=== PATIENT | female | born 1940 | race Caucasian/White ===

== ENCOUNTER 2016-11-24 16:16 | Inpatient (IN) | payer MEDICARE, BC ==
--- NOTE | 2016-11-24 17:50 | ED ---
Recheck HPI - General Chief Complaint: Recheck/Abnormal Lab/Rx Stated Complaint: low hemoglobin Time Seen by Provider: 11/24/16 16:25 Source: patient, EMS Mode of arrival: EMS Limitations: no limitations - History of Present Illness Initial Comments: This patient is a 76-year-old lady who presents after she was called and informed that the labs from this morning were abnormal. The patient states she had some follow-up care with the doctor after she had an abdominal surgery. The CBC that was drawn showed that her hemoglobin was 5.8. The patient does have some symptoms of anemia, namely she is very fatigued. Patient denies chest pain or dyspnea, however she is not very active yet in the postsurgical phase. 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 She did have resection there and now is in for rehab placement. MD Complaint: abnormal lab -: hour(s) Returns Today for: Called Because of Abnormal Lab/Test Symptoms Since Prior Visit: no new symptoms - Related Data Home Medications Medication Instructions Recorded Confirmed Atorvastatin [Lipitor] 10 mg PO HS 07/31/16 11/24/16 Doxazosin [Cardura] 4 mg PO DAILY 07/31/16 11/24/16 Lisinopril 40 mg PO HS 07/31/16 11/24/16 Metoprolol Succinate [Toprol XL] 100 mg PO DAILY 07/31/16 11/24/16 Omeprazole 20 mg PO DAILY 07/31/16 11/24/16 Valsartan [Diovan] 320 mg PO DAILY@1200 07/31/16 11/24/16 Amiodarone [Cordarone] 200 mg PO DAILY 11/24/16 11/24/16 Apixaban [Eliquis] 5 mg PO BID 11/24/16 11/24/16 Aspirin 325 mg PO BID 11/24/16 11/24/16 Diltiazem HCl 30 mg PO Q6H 11/24/16 11/24/16 Dronabinol 5 mg PO BID@0600,1100 11/24/16 11/24/16 Ferrous Sulfate [Feosol] 325 mg PO DAILY 11/24/16 11/24/16 Lactose-Reduced Food [Ensure Plus] 1 can PO AC-TID 11/24/16 11/24/16 Melatonin 10 mg PO HS 11/24/16 11/24/16 Mylanta Double-Stregnth Suspension 10 ml PO Q4H PRN 11/24/16 11/24/16 928-048-21xm/5ml Ondansetron [Zofran] 4 mg PO Q6H PRN 11/24/16 11/24/16 Sennosides-Docusate Sodium 1 tab PO BID 11/24/16 11/24/16 [Senokot-S] Sulfamethox-Tmp 800-160Mg [Bactrim 1 tab PO Q12HR 11/24/16 11/24/16 DS 800-160 mg] Allergies Allergy/AdvReac Type Severity Reaction Status Date / Time No Known Allergies Allergy Verified 11/24/16 16:38 Review of Systems ROS Statement: Those systems with pertinent positive or pertinent negative responses have been documented in the HPI. ROS Other: All systems not noted in ROS Statement are negative. Constitutional: Reports: weakness. Denies: fever, chills Respiratory: Denies: cough, dyspnea, hemoptysis Cardiovascular: Denies: chest pain, palpitations, syncope Endocrine: Reports: fatigue Gastrointestinal: Denies: abdominal pain, vomiting, diarrhea, melena, hematochezia Genitourinary: Denies: dysuria Musculoskeletal: Denies: back pain Skin: Denies: rash Neurological: Reports: weakness (Generalized). Denies: headache, numbness, paresthesias Hematological/Lymphatic: Denies: easy bleeding Past Medical History Past Medical History: Cancer, GERD/Reflux, Hyperlipidemia, Hypertension Additional Past Medical History / Comment(s): Breast CA History of Any Multi-Drug Resistant Organisms: None Reported Past Surgical History: Breast Surgery, Orthopedic Surgery Additional Past Surgical History / Comment(s): LEFT SHOULDER. LEFT FOOT. RIGHT BREAST BIOPSY Past Anesthesia/Blood Transfusion Reactions: Motion Sickness, Postoperative Nausea & Vomiting (PONV) Additional Past Anesthesia/Blood Transfusion Reaction / Comment(s): PATIENT STATES HER TEETH IMPLANTS WERE DISLODGED DURING INTUBATION AND SHE SWALLOWED A TOOTH. Past Psychological History: No Psychological Hx Reported Smoking Status: Former smoker Past Alcohol Use History: None Reported Additional Past Alcohol Use History / Comment(s): Quit in 1993, smoked less than 1/2 PPD for 25 yrs. Past Drug Use History: None Reported - Past Family History Mother Family Medical History: No Reported History General Exam Limitations: no limitations General appearance: alert, in no apparent distress, obese Head exam: Present: atraumatic, normocephalic, normal inspection Eye exam: Present: normal appearance Pupils: Present: other ENT exam: Present: normal oropharynx Neck exam: Present: normal inspection Respiratory exam: Present: normal lung sounds bilaterally. Absent: respiratory distress, wheezes, rales, rhonchi, stridor Cardiovascular Exam: Present: regular rate, normal rhythm, normal heart sounds. Absent: systolic murmur, diastolic murmur, rubs, gallop GI/Abdominal exam: Present: soft, diminished bowel sounds, other (Patient's surgical incision is clean, dry, and intact. No abnormal erythema or warmth. The patient's abdomen is nontender.). Absent: distended, tenderness, guarding, rebound, rigid Extremities exam: Present: normal inspection, normal capillary refill. Absent: pedal edema, calf tenderness Back exam: Present: normal inspection. Absent: CVA tenderness (R), CVA tenderness (L) Neurological exam: Present: alert Skin exam: Present: warm, dry, intact, pallor. Absent: rash, cyanosis, diaphoretic, petechiae Course Vital Signs 11/24/16 11/24/16 16:22 18:12 Temperature 96.8 F L Pulse Rate 66 56 L Respiratory 18 18 Rate Blood Pressure 111/50 118/58 O2 Sat by Pulse 100 100 Oximetry Procedures - Central Line Placement Left Femoral Consent Obtained: verbal consent Time Out Performed: Yes Patient Placed on Monitor/Pulse Ox: Yes MD Prep: mask, gown, gloves Central Line Prep: Chlorhexidine scrub Local Anesthesia Used: Lidocaine 1% Central Line Lumen Inserted: triple Bloods Obtained for Lab: Yes Central Line Position: good blood return, all ports aspirated, flushed, capped, sutured in place with 2-0 silk Dressing Applied: Tegaderm Patient Tolerated Procedure: well Complications: none Medical Decision Making - Medical Decision Making Patient is a 76-year-old woman found to be anemic on labs today. Nursing staff unable to obtain IV, and given the probable requirement for transfusion, I did place a central line and draw blood for labs at same time. The procedure was uncomplicated, please see the note. Case discussed with Dr. Vasquez, who will admit for the patient to have transfusion. - Lab Data Result diagrams: 11/24/16 17:45 11/24/16 17:45 Lab Results 11/24/16 11/24/16 11/24/16 Range/Units 17:45 17:45 17:45 WBC 5.6 (3.8-10.6) k/uL RBC 1.93 L (3.80-5.40) m/uL Hgb 5.9 L* D (11.4-16.0) gm/dL Hct 19.0 L* (34.0-46.0) % MCV 98.4 (80.0-100.0) fL MCH 30.8 (25.0-35.0) pg MCHC 31.3 (31.0-37.0) g/dL RDW 16.9 H (11.5-15.5) % Plt Count 292 (150-450) k/uL Neutrophils % 55 % Lymphocytes % 37 % Monocytes % 4 % Eosinophils % 1 % Basophils % 1 % Neutrophils # 3.1 (1.3-7.7) k/uL Lymphocytes # 2.1 (1.0-4.8) k/uL Monocytes # 0.2 (0-1.0) k/uL Eosinophils # 0.1 (0-0.7) k/uL Basophils # 0.0 (0-0.2) k/uL Anisocytosis Slight Macrocytosis Slight Sodium 136 L (137-145) mmol/L Potassium 4.4 (3.5-5.1) mmol/L Chloride 110 H (98-107) mmol/L Carbon Dioxide 20 L (22-30) mmol/L Anion Gap 6 mmol/L BUN 36 H (7-17) mg/dL Creatinine 1.65 H (0.52-1.04) mg/dL Est GFR (MDRD) Af Amer 37 (>60 ml/min/1.73 sqM) Est GFR (MDRD) Non-Af 30 (>60 ml/min/1.73 sqM) Glucose 98 (74-99) mg/dL Calcium 7.9 L (8.4-10.2) mg/dL Magnesium 2.4 H (1.6-2.3) mg/dL Troponin I (0.000-0.034) ng/mL Urine Color Urine Appearance (Clear) Urine pH (5.0-8.0) Ur Specific [place] (1.001-1.035) Urine Protein (Negative) Urine Glucose (UA) (Negative) Urine Ketones (Negative) Urine Blood (Negative) Urine Nitrate (Negative) Urine Bilirubin (Negative) Urine Urobilinogen (<2.0) mg/dL Ur Leukocyte Esterase (Negative) Urine RBC (0-5) /hpf Urine WBC (0-5) /hpf Blood Type O Negative Blood Type Recheck No Antibody Screen NEGATIVE Crossmatch See Detail Spec Expiration Date 11/27/2016 - 234411/24/16 11/24/16 Range/Units 17:45 18:15 WBC (3.8-10.6) k/uL RBC (3.80-5.40) m/uL Hgb (11.4-16.0) gm/dL Hct (34.0-46.0) % MCV (80.0-100.0) fL MCH (25.0-35.0) pg MCHC (31.0-37.0) g/dL RDW (11.5-15.5) % Plt Count (150-450) k/uL Neutrophils % % Lymphocytes % % Monocytes % % Eosinophils % % Basophils % % Neutrophils # (1.3-7.7) k/uL Lymphocytes # (1.0-4.8) k/uL Monocytes # (0-1.0) k/uL Eosinophils # (0-0.7) k/uL Basophils # (0-0.2) k/uL Anisocytosis Macrocytosis Sodium (137-145) mmol/L Potassium (3.5-5.1) mmol/L Chloride (98-107) mmol/L Carbon Dioxide (22-30) mmol/L Anion Gap mmol/L BUN (7-17) mg/dL Creatinine (0.52-1.04) mg/dL Est GFR (MDRD) Af Amer (>60 ml/min/1.73 sqM) Est GFR (MDRD) Non-Af (>60 ml/min/1.73 sqM) Glucose (74-99) mg/dL Calcium (8.4-10.2) mg/dL Magnesium (1.6-2.3) mg/dL Troponin I <0.012 (0.000-0.034) ng/mL Urine Color Light Red Urine Appearance Cloudy H (Clear) Urine pH 6.0 (5.0-8.0) Ur Specific [place] 1.018 (1.001-1.035) Urine Protein 1+ H (Negative) Urine Glucose (UA) Negative (Negative) Urine Ketones Negative (Negative) Urine Blood Moderate H (Negative) Urine Nitrate Negative (Negative) Urine Bilirubin 1+ H (Negative) Urine Urobilinogen <2.0 (<2.0) mg/dL Ur Leukocyte Esterase Small H (Negative) Urine RBC 43 H (0-5) /hpf Urine WBC 42 H (0-5) /hpf Blood Type Blood Type Recheck Antibody Screen Crossmatch Spec Expiration Date Disposition Clinical Impression: Anemia Disposition: ADMITTED IP TO THIS HOSP Condition: Poor Instructions: Anemia (ED) Referrals: Luisana Quintanilla MD [Primary Care Provider] - 1-2 days
[2016-11-24 18:09] LABS: Anisocytosis Slight; Basophils % (A) 1 %; CH 31.5; CHCM 32.2; Eosinophils # (A) 0.1 k/uL (0-0.7); Eosinophils % (A) 1 %; HDW 2.81; Luc # (Auto) 0.11; Luc % (Auto) 2; Lymphocytes # (A) 2.1 k/uL (1.0-4.8); Lymphocytes % (A) 37 %; MCH 30.8 pg (25.0-35.0); MCHC 31.3 g/dL (31.0-37.0); MCV 98.4 fL (80.0-100.0); Macrocytosis Slight; Mean Platelet Volume 7.6; Monocytes # (A) 0.2 k/uL (0-1.0); Monocytes % (A) 4 %; Neutrophils # (A) 3.1 k/uL (1.3-7.7); Neutrophils % (A) 55 %; RBC 1.93 m/uL (3.80-5.40); RDW 16.9 % (11.5-15.5); WBC 5.6 k/uL (3.8-10.6); WBC (Perox) 5.81
[2016-11-24 18:18] LABS: Calcium 7.9 mg/dL (8.4-10.2); Magnesium 2.4 mg/dL (1.6-2.3); Potassium 4.4 mmol/L (3.5-5.1)
[2016-11-24 18:20] LABS: HGB 5.9 gm/dL (11.4-16.0)
[2016-11-24 18:25] LABS: Appearance,Urine Cloudy (Clear); Bilirubin,Urine 1+ (Negative); Glucose,Urine (UA) Negative (Negative); Ketones,Urine Negative (Negative); Leukocyte Esterase,Urine Small (Negative); Nitrite,Urine Negative (Negative); Particle Count 10847; Protein,Urine 1+ (Negative); RBC,Urine 43 /hpf (0-5); Specific Gravity,Urine 1.018 (1.001-1.035); UA Billing (MACRO vs. MICRO) MICRO; Urobilinogen,Urine <2.0 mg/dL (<2.0); WBC,Urine 42 /hpf (0-5)
[2016-11-24] MEDS ORDERED: NALOXONE 0.4 MG/ML 1 ML VIAL IV PRN (19:24)
[2016-11-24] MEDS ORDERED: ACETAMINOPHEN TAB 325 MG TAB PO PRN (19:24)
[2016-11-24] MEDS ORDERED: ONDANSETRON 4 MG TAB PO PRN (19:25)
[2016-11-24] MEDS ORDERED: SODIUM CHLORIDE 0.9% 1,000 ML IV SCH (19:30)
[2016-11-24] MEDS ORDERED: MAG HYDROX/AL HYDROX/SIMETH 30 ML CUP PO PRN (20:00)
[2016-11-24 21:41] VITALS: BMI 29.7
[2016-11-24] MEDS: DILTIAZEM ORAL 30 MG TAB PO SCH (21:55)
[2016-11-24] MEDS: LISINOPRIL 20 MG TAB PO SCH (21:56)
[2016-11-24] MEDS: ATORVASTATIN 10 MG TAB PO SCH (21:56)
[2016-11-24] MEDS: MELATONIN 5 MG TABLET PO SCH (21:57)
[2016-11-24] MEDS: SENNOSIDES-DOCUSATE SODIUM 1 EACH TAB PO SCH (21:57)
[2016-11-24] MEDS: SULFAMETHOX-TMP 800-160MG 1 EACH TAB PO SCH (21:58)
[2016-11-25] MEDS: DILTIAZEM ORAL 30 MG TAB PO SCH ×4 (04:54→18:07)
[2016-11-25] MEDS: DRONABINOL 2.5 MG CAP PO SCH (06:12)
[2016-11-25 06:52] LABS: Anisocytosis Slight; CH 30.1; CHCM 32.4; HCT 26.7 % (34.0-46.0); HDW 3.26; MCH 30.2 pg (25.0-35.0); MCHC 32.2 g/dL (31.0-37.0); MCV 93.7 fL (80.0-100.0); Mean Platelet Volume 6.8; RBC 2.85 m/uL (3.80-5.40); RDW 18.1 % (11.5-15.5); WBC 8.8 k/uL (3.8-10.6)
[2016-11-25 06:53] LABS: HGB 8.6 gm/dL (11.4-16.0)
[2016-11-25 07:08] LABS: Potassium 4.7 mmol/L (3.5-5.1)
[2016-11-25] MEDS ORDERED: NON-FORMULARY DRUG (Lactose-Reduced Food [Ensure Plus] 1 CAN) PO SCH (07:30)
[2016-11-25] MEDS ORDERED: PANTOPRAZOLE 40 MG TABLET PO SCH (07:30)
[2016-11-25] MEDS: SULFAMETHOX-TMP 800-160MG 1 EACH TAB PO SCH ×2 (08:22→20:37)
[2016-11-25] MEDS: SENNOSIDES-DOCUSATE SODIUM 1 EACH TAB PO SCH ×2 (08:22→20:37)
[2016-11-25] MEDS ORDERED: AMIODARONE 200 MG TAB PO SCH (09:00)
[2016-11-25] MEDS ORDERED: FERROUS SULFATE 325 MG TAB PO SCH (09:00)
[2016-11-25] MEDS ORDERED: METOPROLOL SUCCINATE (ER) 100 MG TAB.ER.24H PO SCH (09:00)
[2016-11-25] MEDS ORDERED: DOXAZOSIN 4 MG TAB PO SCH (09:00)
[2016-11-25] MEDS ORDERED: IOHEXOL 350 MG/ML 25 ML BOTTLE (ORAL USE) PO PRN (09:41)
[2016-11-25] MEDS ORDERED: SODIUM CHLORIDE 0.9% 1,000 ML IV SCH ×2 (09:45→16:30)
[2016-11-25] MEDS ORDERED: RX INFO: IV CONTRAST WAS GIVEN 1 EACH MISC MISCELLANE PRN (10:01)
[2016-11-25] MEDS: IOHEXOL 350 MG/ML 25 ML BOTTLE (ORAL USE) PO PRN ×2 (11:12→12:08)
--- NOTE | 2016-11-25 11:12 | HP ---
DATE OF ADMISSION: CHIEF COMPLAINT: Nausea and abdominal discomfort. HISTORY OF PRESENT ILLNESS: This is a 76-year-old female resident of a skilled nursing who presented to the hospital with nausea, abdominal discomfort and abnormal hemoglobin where it was found to be 5.9. Patient in the emergency was evaluated and received 2 units of transfusion and central line placement in her left groin and was admitted to the floor for further workup. The patient is a poor historian, difficult to obtain history, but when asked about her name, address and current location, she was able to verify all the above information. Patient is a poor historian given a lot of information and saying that she has been ( ). Patient currently is complaining of nausea and belching but not vomiting. The patient is refusing to eat and has been on clears since she came in at the time she was placed on a regular diet. Patient is denying chest pain, shortness of breath, dizziness, lightheadedness, blurry vision, or dysuria. REVIEW OF SYSTEMS: All 14 systems reviewed and negative except as above. HOME MEDICATIONS: 1. Lipitor 10 daily. 2. Cardura 4 mg daily. 3. Lisinopril 40 daily. 4. Toprol XL 100 daily. 5. Omeprazole 20 daily. 6. Diovan 320 daily. 7. Amiodarone 200 mg daily. 8. Apixaban 5 mg twice daily. 9. Aspirin 325 twice daily. 10. Diltiazem 30 mg q.6 hours. 11. Dronabinol 5 mg twice daily. 12. Ferrous sulfate 325 daily. 13. Ensure daily. 14. Melatonin 10 mg daily. 15. Mylanta as needed. 16. Zofran as needed. 17. Senna twice daily. 18. Bactrim every 12 hours that was started recently. ALLERGIES: No known drug allergies. PAST MEDICAL AND SURGICAL HISTORY: 1. Recent abdominal surgery at [facility] with partial colon resection without colostomy that was done in September 2017, but patient is poor historian as mentioned above and the information we have from the information sheet said the CAT scan showed pneumatosis in the stomach and patient had resection at [facility]. 2. GERD. 3. Hyperlipidemia. 4. Hypertension. 5. Breast cancer. 6. Breast surgery. 7. Left shoulder surgery. 8. Left foot surgery. 9. Right breast biopsy. SOCIAL HISTORY: The patient former smoker, quit a long time ago. Denied alcohol or drug abuse. FAMILY HISTORY: Reviewed and negative. PHYSICAL EXAMINATION: VITAL SIGNS: Reviewed and stable. GENERAL: In her stated age, in no acute distress. HEENT: Atraumatic, normocephalic. PERRLA. NECK: Supple, no masses. No thyromegaly. LUNGS: Clear to auscultation bilaterally. HEART: Normal S1, S2. ABDOMEN: Soft, distended. No guarding or rebound. No tenderness. A midline incision seems to be pink in color. No obvious discharge. Middle of her of midline incision seems to be not healing completely. LOWER EXTREMITIES: Positive for bilateral lower extremity 2+ edema. SKIN: No rash. NEURO: No focal deficit. PSYCH: As mentioned above. IMAGING AND LABS: CBC revealed hemoglobin of 5.9, normal otherwise. Chem-7 revealed elevated BUN at 36, creatinine 1.65. Liver function tests within acceptable range. ASSESSMENT AND PLAN: 1. Acute blood loss anemia, unclear etiology with recent abdominal surgery at [facility] back in September 2016 and being on anticoagulation with apixaban. A patient with possible intraabdominal bleed, I would like to discontinue apixaban. I would like to consult General Surgery, keep patient on clear liquid diet for right now and n.p.o. per their recommendation. 2. Intractable nausea, but no vomiting. I discussed with the nursing staff to place NG tube if patient deteriorates. 3. Recent urinary tract infection. Patient on Bactrim. We will continue for the hospital stay. 4. Acute kidney injury likely secondary to bleed and dehydration. We will hydrate the patient with 60 mL of normal saline per hour and monitor kidney function closely. 5. Bilateral lower extremity edema, seems to be chronic. We will continue monitoring and discuss with family once at the bedside if patient was taking any diuretics at home. 6. Questionable history of atrial fibrillation. Patient currently in sinus rhythm. Apixaban on hold. We will discuss with family the need for anticoagulation and right now because of the low hemoglobin, we would like to hold it. 7. Code status is FULL.
[2016-11-25] MEDS ORDERED: VALSARTAN 160 MG TAB PO SCH (12:00)
--- NOTE | 2016-11-25 13:20 | CT ---
EXAMINATION TYPE: CT abdomen pelvis wo con DATE OF EXAM: 11/25/2016 1:03 PM COMPARISON: Prior CT abdomen pelvis September HISTORY: Gi bleed CT DLP: 1152 mGycm Automated exposure control for dose reduction was used. TECHNIQUE: Helical acquisition of images from the lung bases through the pelvis. FINDINGS: Bilateral breast prostheses are present, some interval improvement in postop changes noted. There are mitral annular calcifications, coronary artery calcifications present. There is a hiatal h ernia present. Lack of intravenous contrast may compromise sensitivity. Aorta shows normal caliber. LUNG BASES: No significant abnormality is appreciated. AORTA: Minimal dependent atelectatic changes are suspected. Nodular density on axial image 14 may be postinflammatory, some suggestion of alveolar densities present in the left lower lobe. LIVER/GB: Liver shows a somewhat heterogeneous density. The liver is enlarged. The pneumobilia has re solved. Hyperdense material present within the gallbladder may represent tumefactive sludge. PANCREAS: No significant abnormality is seen. SPLEEN: No significant abnormality is seen. ADRENALS: No significant abnormality is seen. KIDNEYS: No significant abnormality is seen. REPRODUCTIVE ORGANS: Stable, some calcifications or metallic densities again noted towards the right adnexa URINARY BLADDER: Some minimal dependent high density is present which is indeterminate and could be related to blood or stones. BOWEL: No evident obstruction. Some wall thickening noted within the descending and sigmoid colon is indeterminate and could be related to lack of distention, difficult to exclude a mucosal abnormality so small bowel loops also show some wall thickening. The appendix is normal. FREE AIR: No Free Air is visible. ASCITES: None visible. PELVIC ADENOPATHY: None visualized. RETROPERITONEAL ADENOPATHY: No Retroperitoneal Adenopathy visible. OSSEOUS STRUCTURES: No significant abnormality is seen. IMPRESSION: MINIMAL DEPENDENT HYPERDENSITY WITHIN THE BLADDER IS INDETERMINATE. HETEROGENEOUS DENSITY WITHIN THE LIVER COULD BE RELATED TO FATTY INFILTRATION, LACK OF CONTRAST LIMITS SENSITIVITY. Findings in the Colon As Described, Consider Colitis. Consider Bowel Surveillance if This Has Not Been Performed. Add itional findings above. Findings at the lung base on the left are indeterminate, consider pneumonia, septic emboli in the appropriate clinical setting, follow-up suggested.
--- NOTE | 2016-11-25 15:43 | XR ---
EXAMINATION TYPE: XR chest 1V portable DATE OF EXAM: 11/25/2016 3:25 PM COMPARISON: Prior chest x-ray September HISTORY: NG tube placement TECHNIQUE: Single frontal view of the chest is obtained. FINDINGS: There is been interval placement of an NG tube, distal tip not included on the exam but tu be is coursing in the stomach. Postop changes are noted to the chest. No evident pneumothorax or pleu ral effusion. IMPRESSION: Interval NG tube placement
--- NOTE | 2016-11-25 17:53 | P.PN ---
Progress Note - Text Please see full dictated consult. 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 She reports increased abdominal pain and was brought in for anemia. She is due to see her general surgeon at [facility] this Sunday, in 2 days, but was sent to the ER for abnormal blood work. CT scan reviewed showing no bowel obstruction. She is passing flatus. NGT is present and she is uncomfortable with the tube. She reports nausea and vomiting. Recommend immediate transfer back to [facility] as she has established care and is pending immediate follow-up with her surgeon. NGT may be removed as she has no evidence of obstruction on CT scan and is clinically passing flatus.
[2016-11-25] MEDS: MORPHINE SULFATE 4 MG/ML SYRINGE IVP PRN ×2 (18:07→21:28)
[2016-11-25 18:16] LABS: Anisocytosis Slight; Basophils % (A) 0 %; CH 30.9; CHCM 33.3; Eosinophils % (A) 0 %; HDW 3.35; HGB 7.4 gm/dL (11.4-16.0); Luc # (Auto) 0.05; Luc % (Auto) 1; Lymphocytes % (A) 28 %; MCH 30.3 pg (25.0-35.0); MCHC 32.3 g/dL (31.0-37.0); MCV 93.8 fL (80.0-100.0); Mean Platelet Volume 7.8; Monocytes # (A) 0.2 k/uL (0-1.0); Monocytes % (A) 3 %; Neutrophils # (A) 4.9 k/uL (1.3-7.7); Neutrophils % (A) 68 %; RBC 2.45 m/uL (3.80-5.40); RDW 18.7 % (11.5-15.5); WBC 7.2 k/uL (3.8-10.6); WBC (Perox) 7.46
[2016-11-25 18:27] LABS: Calcium 7.8 mg/dL (8.4-10.2); Potassium 4.6 mmol/L (3.5-5.1)
[2016-11-25] MEDS: ATORVASTATIN 10 MG TAB PO SCH (20:37)
[2016-11-25] MEDS: MELATONIN 5 MG TABLET PO SCH (20:37)
[2016-11-25] MEDS: LISINOPRIL 20 MG TAB PO SCH (20:37)
[2016-11-25 21:22] VITALS: BP 115/61; PULSE 67; RESP 19; TEMP 97.2
--- NOTE | 2016-11-27 13:11 | DS ---
DATE OF ADMISSION: 11/24/2016 DATE OF DISCHARGE: 11/25/2016 ADMITTING DIAGNOSES: 1. Acute blood loss anemia with hemoglobin 5. 2. Intractable nausea but no vomiting. 3. Recent hemicolectomy at [facility]. DISCHARGE DIAGNOSES: 1. Acute blood loss anemia with hemoglobin 5. 2. Intractable nausea but no vomiting. 3. Recent hemicolectomy at [facility]. HOSPITAL COURSE: This is a 76-year-old female who presented to the hospital with low hemoglobin. Patient received 2 units of blood. On initial evaluation patient was nauseous and with signs of bowel obstruction. NG tube and CT scan was ordered which revealed no obstruction and surgery evaluated the patient and recommend to discontinue the NG tube and the patient to be transferred to [facility]. I discussed the case with the patient and her family who agreed to transfer the patient to [facility] but I was informed about CT result were negative findings but was not informed about the possibility of septic emboli underlying. I contacted her son Samuel phone number after I got his phone number from the daughter Mayi, where I got her , and informed him about CAT scan results and necessity of performing full CT scan of the chest and provided my cell phone number to the son to have the doctor at [facility] contact me for any further explanation of any other details about CAT scan at [facility] and at that time I asked the nursing staff to provide a copy of the CAT scan at the time of the discharge but I was not sure if she was sent down to [facility] with her CT. Patient was transferred to [facility] after I talked to the accepting surgeon who operated on the patient back in September 2016 who stated that the patient does not need any surgical intervention at this point and she needs some medical care and stated that he will be accepting the patient, but no intervention will be done at that time. Patient was transferred in stable condition.
--- NOTE | 2016-11-29 21:09 | P.GSCN ---
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 She reports increased abdominal pain and was brought in for anemia and abnormal blood work. She is due to see her general surgeon at [facility] this Sunday, in 2 days, but was sent to the ER for abnormal blood work. She is passing flatus. An NGT is present and she is uncomfortable with the tube. She reports nausea and vomiting. Incidentally, she has history of an open abdominal wound being managed by her surgeon in [facility]. General surgery is consulted for her history of abdominal pain. Review of Systems CONSTITUTIONAL: Denies any fever or chills. She had recent weight loss or weight gain. HEENT: Denies any trouble with vision, hearing or nosebleeds. No difficulty swallowing. LYMPHATIC: The patient denies any lumps and bumps around the neck. ENDOCRINE: Denies any thyroid disorders. Denies any blood sugar glucose intolerance. RESPIRATORY: Past pneumonia. Denies any current troubles with breathing or dyspnea on exertion. CARDIOVASCULAR: Denies any chest pain, palpitations, or recent heart attacks. GASTROINTESTINAL: See in HPI with history of nausea and vomiting and abdominal pain. GENITOURINARY: Denies any blood in urine or increased urinary frequency. MUSCULOSKELETAL: Has back pain, stiffness, joint arthritis. NEUROLOGIC: Denies any numbness or tingling along the distal extremities. No seizure disorders or headaches. PSYCHIATRIC: Denies depression or suidical ideation. HEMATOLOGIC: Has anemia and is on Eliquis. BREASTS: Has history of breast cancer with history of mastectomy. Past Medical History Past Medical History: Cancer, GERD/Reflux, Hyperlipidemia, Hypertension Additional Past Medical History / Comment(s): Breast CA History of Any Multi-Drug Resistant Organisms: None Reported Past Surgical History: Breast Surgery, Orthopedic Surgery Additional Past Surgical History / Comment(s): LEFT SHOULDER. LEFT FOOT. double mastectomy in september of 2016 Past Anesthesia/Blood Transfusion Reactions: Motion Sickness, Postoperative Nausea & Vomiting (PONV) Additional Past Anesthesia/Blood Transfusion Reaction / Comm: PATIENT STATES HER TEETH IMPLANTS WERE DISLODGED DURING INTUBATION AND SHE SWALLOWED A TOOTH. Past Psychological History: No Psychological Hx Reported Smoking Status: Former smoker Past Alcohol Use History: None Reported Additional Past Alcohol Use History / Comment(s): Quit in 1984, smoked less than 1/2 PPD for 25 yrs. Past Drug Use History: None Reported - Past Family History Mother Family Medical History: No Reported History Medications and Allergies Home Medications Medication Instructions Recorded Confirmed Type Atorvastatin [Lipitor] 10 mg PO HS@2100 07/31/16 12/14/16 History Metoprolol Succinate [Toprol XL] 100 mg PO DAILY@2100 07/31/16 12/14/16 History Omeprazole 20 mg PO DAILY 07/31/16 12/14/16 History Amiodarone [Cordarone] 200 mg PO DAILY 11/24/16 12/14/16 History Apixaban [Eliquis] 5 mg PO BID 11/24/16 12/14/16 History Ferrous Sulfate [Feosol] 325 mg PO DAILY 11/24/16 12/14/16 History Sennosides-Docusate Sodium 1 tab PO BID 11/24/16 12/14/16 History [Senokot-S] Acetaminophen Tab [Tylenol Tab] 650 mg PO Q4H PRN 12/14/16 12/14/16 History Cholecalciferol [Vitamin D3] 2,000 unit PO HS 12/14/16 12/14/16 History Cyanocobalamin [Vitamin B-12] 500 mcg PO DAILY 12/14/16 12/14/16 History Darbepoetin Matty [Aranesp] 40 mcg SQ Q30D 12/14/16 12/15/16 History Dronabinol [Marinol] 5 mg PO BID 12/14/16 12/14/16 History Furosemide [Lasix] 40 mg PO MOWEFR 12/14/16 12/14/16 History Lactose-Reduced Food [Ensure Plus] 1 can PO TID BETWEEN MEALS 12/14/16 12/14/16 History Melatonin 6 mg PO HS 12/14/16 12/14/16 History Potassium Chloride [Klor-Con] 20 meq PO DAILY 12/14/16 12/14/16 History Allergies Allergy/AdvReac Type Severity Reaction Status Date / Time No Known Allergies Allergy Verified 12/14/16 23:06 Surgical - Exam Vital Signs Temp Pulse Resp BP Pulse Ox 96.8 F L 66 18 111/50 100 11/24/16 16:22 02/17/17 16:22 11/24/16 16:22 11/24/16 16:22 11/24/16 16:22 GENERAL: Well developed and in no acute distress. Pleasant. HEENT: No sclera icterus. Extraocular movements grossly intact. Moist buccal mucosa. Head is atraumatic, normocephalic. Hears conversational speech. No nasal drainage. NGT present. NECK: Supple without lymphadenopathy. No JV distention. CHEST: Non-labored respirations and equal bilateral excursions. CARDIOVASCULAR: Regular rate and rhythm. Palpable 2+ radial pulses. ABDOMEN: Soft. Nondistended. Has granulating midline incision. No peritonitis. MUSCULOSKELETAL: No clubbing, cyanosis or edema. NEUROLOGIC: No focal or lateralizing signs. PSYCH: Appropriate affect. Alert and oriented to person, place and time. Results - Labs 11/25/16 17:50 11/25/16 17:50 - Imaging CT scan - abdomen: report reviewed, image reviewed CT scan - pelvis: report reviewed, image reviewed (CT scan reviewed showing no bowel obstruction.) Assessment and Plan (1) Abdominal pain Status: Chronic (2) Open abdominal wall wound Status: Chronic (3) Breast cancer Status: Chronic (4) Anemia Status: Acute (5) Dehydration Status: Acute (6) S/P mastectomy, bilateral Status: Acute Plan: 1. CT scan reviewed showing no bowel obstruction. 2. Recommend immediate transfer back to [facility] as she has established care and is pending immediate follow-up with her surgeon. 3. NGT may be removed as she has no evidence of obstruction on CT scan and is clinically passing flatus. 4. No acute surgical intervention needed at this time.
== END 2016-11-25 22:02 | disposition short-term general hospital (02) | DRG 812 ==
LOC: EC 16:16 → 6SEL 19:19
PROVIDERS: ADMIT Internal Medicine; ATTEND Internal Medicine
PROC: 30243N1 Transfusion of Nonautologous Red Blood Cells into Central Vein, Percutaneous Approach (ICD-10-PCS; principal; 2016-11-24)
PROC: 0T9B70Z Drainage of Bladder with Drainage Device, Via Natural or Artificial Opening (ICD-10-PCS; 2016-11-24)
PROC: 06HN33Z Insertion of Infusion Device into Left Femoral Vein, Percutaneous Approach (ICD-10-PCS; 2016-11-24)
PROC: 0D9670Z Drainage of Stomach with Drainage Device, Via Natural or Artificial Opening (ICD-10-PCS; 2016-11-25)
DX: D62 Acute posthemorrhagic anemia (principal); N17.9 Acute kidney failure, unspecified; E86.0 Dehydration; N39.0 Urinary tract infection, site not specified; I48.91 Unspecified atrial fibrillation; I10 Essential (primary) hypertension; E78.5 Hyperlipidemia, unspecified; K21.9 Gastro-esophageal reflux disease without esophagitis; R60.0 Localized edema; R10.9 Unspecified abdominal pain; R91.8 Other nonspecific abnormal finding of lung field; R11.0 Nausea; Z87.891 Personal history of nicotine dependence; Z85.3 Personal history of malignant neoplasm of breast; Z79.899 Other long term (current) drug therapy; Z90.13 Acquired absence of bilateral breasts and nipples; Z90.49 Acquired absence of other specified parts of digestive tract; Z79.01 Long term (current) use of anticoagulants; Z79.82 Long term (current) use of aspirin; Z98.890 Other specified postprocedural states
CPT/HCPCS: 36415; 36430; 51701; 71010; 74176; 80048; 81001; 83605; 83735; 84484; 85025; 85027; 86850; 86900; 86901; 86920; 87077; 87086; 87186; 93005; 99285

== ENCOUNTER → 2016-12-07 | Outpatient (CLI) | payer BC, MEDICARE, OTHER ==
--- NOTE | 2016-12-07 13:20 | NM ---
EXAMINATION TYPE: NM GI bleeding DATE OF EXAM: 12/07/2016 12:56 PM HISTORY: Gastrointestinal bleeding, anemia COMPARISON: CT abdomen pelvis 25 November 2016 Following administration of 3 ml PYP 22.5 mCi Tc 99m Sodium Pertechnetate. Immediate images post inje ction. FINDINGS: Normal tracer activity is seen in the blood pool of the abdominal aorta, common iliac arteries, femor al arteries, liver, and spleen on all of the interval images. Later images show accumulation of trace r in the urinary bladder, which is consistent with excreted tracer. No abnormal tracer uptake is pres ent outside the blood pool that would be consistent with an active GI bleed. IMPRESSION: Negative examination. No evidence of active gastrointestinal bleeding during the initial 1 hr observa tion period. Patient is bleeding clinically then immediate reimaging is recommended
== END | disposition home or self-care (01) ==
LOC: RADNMMAIN 10:33
PROVIDERS: ATTEND Family Medicine
DX: K55.059 Acute (reversible) ischemia of intestine, part and extent unspecified (principal); D64.9 Anemia, unspecified
CPT/HCPCS: 78278; A9560

== ENCOUNTER 2016-12-13 02:03 | Emergency (ER) | payer MEDICARE, BC ==
[2016-12-13 02:20] VITALS: RESP 16; TEMP 96.8
--- NOTE | 2016-12-13 03:23 | CT ---
EXAM: CT Head Without Intravenous Contrast. CLINICAL HISTORY: Reason: fall TECHNIQUE: Axial computed tomography images of the head/brain without intravenous contrast. CTDI is 57.4 mGy and DLP is 1012.7 mGy-cm COMPARISON: No relevant prior studies available. FINDINGS: Brain: Involutional changes and small vessel disease. No hemorrhage. No acute cortical infarct. No mass effect or midline shift. Ventricles: Unremarkable. Bones/joints: Age-indeterminate irregularity of the nasal bone. Correlate with focal tenderness. Soft tissues: Posterior scalp soft tissue swelling. Sinuses: Paranasal sinus disease, greater on the right, with opacification of the right maxillary, ethmoid, and frontal sinuses. Mastoid air cells: Possible trace left mastoid fluid. IMPRESSION: 1. No acute intracranial process. 2. Posterior scalp soft tissue swelling. 3. Right greater than left paranasal sinus disease. EXAM: CT Cervical Spine Without Intravenous Contrast. CLINICAL HISTORY: Reason: fall TECHNIQUE: Axial computed tomography images of the cervical spine without intravenous contrast. CTDI is 26.2 mGy and DLP is 564.4 mGy-cm COMPARISON: No relevant prior studies available. FINDINGS: Vertebrae: Unremarkable. No acute fracture. Discs/spinal canal/neural foramina: Multilevel degenerative changes most prominent at C5-6. No critical spinal canal stenosis. Soft tissues: Unremarkable. Lung apices: Subpleural cystic changes at the bilateral lung apices. IMPRESSION: Degenerative changes without evidence of acute fracture.
--- NOTE | 2016-12-13 03:51 | ED ---
Fall HPI - General Chief Complaint: Fall Stated Complaint: FALL Time Seen by Provider: 12/13/16 02:28 Source: patient, EMS Mode of arrival: EMS - History of Present Illness Initial Comments: Patient is a 76-year-old woman coming by ambulance to be evaluated after she had a fall. Patient was being helped to transfer and lost her balance falling and striking the area to the right of the occipital of the head and she was also having some neck pain. As the patient is taking eliquis the staff felt she should be evaluated here. The patient is at this point complaining of some moderate right posterior head pain and a little bit of right-sided neck pain. She also states that she bit the right side of her lip. She is denying any other injuries. MD Complaint: fall Onset/Timin -: hour(s) Fall From: standing When Fall Occurred: 1 hour [employer] Fall Witnessed: yes, by bystander Place Fall Occurred: group home/SNF Loss of Consciousness: none Prolonged Down Time?: no Symptoms Prior to Fall: none Location: head Severity: moderate Quality: sharp Context: tripped/slipped - Related Data Home Medications Medication Instructions Recorded Confirmed Atorvastatin [Lipitor] 10 mg PO HS 07/31/16 11/24/16 Doxazosin [Cardura] 4 mg PO DAILY 07/31/16 11/24/16 Lisinopril 40 mg PO HS 07/31/16 11/24/16 Metoprolol Succinate [Toprol XL] 100 mg PO DAILY 07/31/16 11/24/16 Omeprazole 20 mg PO DAILY 07/31/16 11/24/16 Valsartan [Diovan] 320 mg PO DAILY@1200 07/31/16 11/24/16 Amiodarone [Cordarone] 200 mg PO DAILY 11/24/16 11/24/16 Apixaban [Eliquis] 5 mg PO BID 11/24/16 11/24/16 Aspirin 325 mg PO BID 11/24/16 11/24/16 Diltiazem HCl 30 mg PO Q6H 11/24/16 11/24/16 Dronabinol 5 mg PO BID@0600,1100 11/24/16 11/24/16 Ferrous Sulfate [Feosol] 325 mg PO DAILY 11/24/16 11/24/16 Lactose-Reduced Food [Ensure Plus] 1 can PO AC-TID 11/24/16 11/24/16 Melatonin 10 mg PO HS 11/24/16 11/24/16 Mylanta Double-Stregnth Suspension 10 ml PO Q4H PRN 11/24/16 11/24/16 801-053-12cs/5ml Ondansetron [Zofran] 4 mg PO Q6H PRN 11/24/16 11/24/16 Sennosides-Docusate Sodium 1 tab PO BID 11/24/16 11/24/16 [Senokot-S] Sulfamethox-Tmp 800-160Mg [Bactrim 1 tab PO Q12HR 11/24/16 11/24/16 DS 800-160 mg] Allergies Allergy/AdvReac Type Severity Reaction Status Date / Time No Known Allergies Allergy Verified 11/24/16 16:38 Review of Systems ROS Statement: Those systems with pertinent positive or pertinent negative responses have been documented in the HPI. ROS Other: All systems not noted in ROS Statement are negative. Constitutional: Denies: fever, weakness Eyes: Denies: vision change Respiratory: Denies: cough, dyspnea Cardiovascular: Denies: chest pain, syncope Gastrointestinal: Denies: abdominal pain, vomiting, diarrhea Musculoskeletal: Reports: as per HPI. Denies: back pain Skin: Denies: rash Neurological: Reports: headache. Denies: weakness, numbness, paresthesias Hematological/Lymphatic: Reports: as per HPI (Taking eloquent) Past Medical History Past Medical History: Cancer, GERD/Reflux, Hyperlipidemia, Hypertension Additional Past Medical History / Comment(s): Breast CA History of Any Multi-Drug Resistant Organisms: None Reported Past Surgical History: Breast Surgery, Orthopedic Surgery Additional Past Surgical History / Comment(s): LEFT SHOULDER. LEFT FOOT. double mastectomy in september of 2016 Past Anesthesia/Blood Transfusion Reactions: Motion Sickness, Postoperative Nausea & Vomiting (PONV) Additional Past Anesthesia/Blood Transfusion Reaction / Comment(s): PATIENT STATES HER TEETH IMPLANTS WERE DISLODGED DURING INTUBATION AND SHE SWALLOWED A TOOTH. Past Psychological History: No Psychological Hx Reported Smoking Status: Former smoker Past Alcohol Use History: None Reported Additional Past Alcohol Use History / Comment(s): Quit in 1984, smoked less than 1/2 PPD for 25 yrs. Past Drug Use History: None Reported - Past Family History Mother Family Medical History: No Reported History General Exam General appearance: alert, in no apparent distress, obese Head exam: Present: normocephalic, other (Patient has a contusion with some mild scalp tenderness to the right of the exhibit. There is no obvious bony deformity) Eye exam: Present: normal appearance, PERRL, EOMI. Absent: scleral icterus, conjunctival injection ENT exam: Present: normal oropharynx, mucous membranes dry, other (There is some dried blood right lower lip, but no active bleeding. There is a puncture wound to the lip not requiring's sutures.) Neck exam: Present: normal inspection. Absent: tenderness Respiratory exam: Present: normal lung sounds bilaterally. Absent: respiratory distress, wheezes, rales, rhonchi, stridor Cardiovascular Exam: Present: regular rate, normal rhythm, normal heart sounds. Absent: systolic murmur, diastolic murmur, rubs, gallop GI/Abdominal exam: Present: soft. Absent: tenderness, guarding, rebound Extremities exam: Present: normal inspection. Absent: pedal edema Back exam: Present: normal inspection Neurological exam: Present: alert, CN II-XII intact. Absent: motor sensory deficit Skin exam: Present: warm, dry, intact, normal color. Absent: rash Course Vital Signs 12/13/16 12/13/16 02:14 04:34 Temperature 96.8 F L Pulse Rate 58 L 80 Respiratory 16 16 Rate Blood Pressure 87/44 88/66 O2 Sat by Pulse 100 100 Oximetry Medical Decision Making - Medical Decision Making This patient is a 76-year-old woman who had a fall at her facility, and was transferred here to rule out a head injury. She has had CT of the head and neck which are negative. We did get her up to stand at the bedside and she is able to support weight. She is not having any other complaints and at this point is clear for discharge back to care of her facility. - EKG Data -: EKG Interpreted by Me EKG shows normal: sinus rhythm, axis (Normal), intervals (Normal) Rate: normal (Rate 60 bpm) When compared to previous EKG there are: previous EKG unavailable Interpretation: nonspecific ST-T wave changes Disposition Clinical Impression: Fall, Head injury Disposition: HOME SELF-CARE Condition: Fair Instructions: Fall Prevention for Older Adults (ED), Head Injury (ED) Referrals: Luisana Quintanilla MD [Primary Care Provider] - 1-2 days
[2016-12-13 04:48] VITALS: BP 88/66; PULSE 80
== END 2016-12-13 04:34 | disposition home or self-care (01) ==
LOC: EC 02:03
DX: S00.03XA Contusion of scalp, initial encounter (principal); S01.531A Puncture wound without foreign body of lip, initial encounter; M54.2 Cervicalgia; E78.5 Hyperlipidemia, unspecified; I10 Essential (primary) hypertension; K21.9 Gastro-esophageal reflux disease without esophagitis; Z87.891 Personal history of nicotine dependence; Z79.01 Long term (current) use of anticoagulants; Z79.82 Long term (current) use of aspirin; Z79.899 Other long term (current) drug therapy; Z85.3 Personal history of malignant neoplasm of breast; Z90.13 Acquired absence of bilateral breasts and nipples; W01.10XA Fall on same level from slipping, tripping and stumbling with subsequent striking against unspecified object, initial encounter; Y92.129 Unspecified place in nursing home as the place of occurrence of the external cause
CPT/HCPCS: 70450; 72125; 93005; 99284

== ENCOUNTER 2016-12-14 20:23 | Inpatient (IN) | payer MEDICARE, BC ==
[2016-12-14] MEDS ORDERED: SODIUM CHLORIDE 0.9% 1,000 ML IV ONE ×2 (20:29→21:58)
--- NOTE | 2016-12-14 20:32 | ED ---
General Adult HPI - General Stated complaint: Abn Labs Time Seen by Provider: 12/14/16 20:23 Source: RN notes reviewed - History of Present Illness Initial comments: This is a 76-year-old female presents emergency Department by EMS they told us that the staff there states she was dehydrated and her creatinine was elevated. Patient herself is complaining of a posterior headache she states she fell a few days ago EMS confirmed this. Patient denies any cough or fever. Patient states she's not been eating well. Patient denies any chest pain or palpitations. Patient denies abdominal pain. Patient denies any extremity pain. According to EMS staff states she was slightly altered today. Staff denied any fever. - Related Data Home Medications Medication Instructions Recorded Confirmed Atorvastatin [Lipitor] 10 mg PO HS@209907/31/16 12/14/16 Metoprolol Succinate [Toprol XL] 100 mg PO DAILY@209907/31/16 12/14/16 Omeprazole 20 mg PO DAILY 07/31/16 12/14/16 Amiodarone [Cordarone] 200 mg PO DAILY 11/24/16 12/14/16 Apixaban [Eliquis] 5 mg PO BID 11/24/16 12/14/16 Ferrous Sulfate [Feosol] 325 mg PO DAILY 11/24/16 12/14/16 Sennosides-Docusate Sodium 1 tab PO BID 11/24/16 12/14/16 [Senokot-S] Acetaminophen Tab [Tylenol Tab] 650 mg PO Q4H PRN 12/14/16 12/14/16 Cholecalciferol [Vitamin D3] 2,000 unit PO HS 12/14/16 12/14/16 Cyanocobalamin [Vitamin B-12 1,000 mcg SQ ONCE 12/14/16 12/14/16 Injection] Cyanocobalamin [Vitamin B-12] 500 mcg PO DAILY 12/14/16 12/14/16 Darbepoetin Matty [Aranesp] 40 mcg SQ Q30D 12/14/16 12/14/16 Diltiazem Oral [Cardizem Oral] 30 mg PO Q6H 12/14/16 12/14/16 Dronabinol [Marinol] 5 mg PO BID 12/14/16 12/14/16 Furosemide [Lasix] 40 mg PO BID 12/14/16 12/14/16 Furosemide [Lasix] 40 mg PO MOWEFR 12/14/16 12/14/16 Lactose-Reduced Food [Ensure Plus] 1 can PO TID BETWEEN MEALS 12/14/16 12/14/16 Lisinopril [Zestril] 10 mg PO DAILY 12/14/16 12/14/16 Melatonin 6 mg PO HS 12/14/16 12/14/16 Potassium Chloride [Klor-Con] 20 meq PO BID 12/14/16 12/14/16 Potassium Chloride [Klor-Con] 20 meq PO DAILY 12/14/16 12/14/16 Allergies Allergy/AdvReac Type Severity Reaction Status Date / Time No Known Allergies Allergy Verified 12/14/16 20:42 Review of Systems ROS Statement: Those systems with pertinent positive or pertinent negative responses have been documented in the HPI. ROS Other: All systems not noted in ROS Statement are negative. Past Medical History Past Medical History: Cancer, GERD/Reflux, Hyperlipidemia, Hypertension Additional Past Medical History / Comment(s): Breast CA History of Any Multi-Drug Resistant Organisms: None Reported Past Surgical History: Breast Surgery, Orthopedic Surgery Additional Past Surgical History / Comment(s): LEFT SHOULDER. LEFT FOOT. double mastectomy in september of 2016 Past Anesthesia/Blood Transfusion Reactions: Motion Sickness, Postoperative Nausea & Vomiting (PONV) Additional Past Anesthesia/Blood Transfusion Reaction / Comment(s): PATIENT STATES HER TEETH IMPLANTS WERE DISLODGED DURING INTUBATION AND SHE SWALLOWED A TOOTH. Past Psychological History: No Psychological Hx Reported Smoking Status: Former smoker Past Alcohol Use History: None Reported Additional Past Alcohol Use History / Comment(s): Quit in 1984, smoked less than 1/2 PPD for 25 yrs. Past Drug Use History: None Reported - Past Family History Mother Family Medical History: No Reported History General Exam - General Exam Comments Initial Comments: GENERAL: Patient is well-developed and well-nourished. Patient is nontoxic and well- hydrated and is in mild distress. ENT: Neck is soft and supple. No significant lymphadenopathy is noted. Oropharynx is clear. Moist mucous membranes. Neck has full range of motion without eliciting any pain. EYES: The sclera were anicteric and conjunctiva were pink and moist. Extraocular movements were intact and pupils were equal round and reactive to light. Eyelids were unremarkable. PULMONARY: Unlabored respirations. Good breath sounds bilaterally. No audible rales rhonchi or wheezing was noted. CARDIOVASCULAR: There is a regular rate and rhythm without any murmurs gallops or rubs. Patient has bilateral mastectomies ABDOMEN: Soft and nontender with normal bowel sounds. No palpable organomegaly was noted. There is no palpable pulsatile mass. SKIN: Skin is clear with no lesions or rashes and otherwise unremarkable. NEUROLOGIC: Patient is alert and oriented 2. Cranial nerves II through XII are grossly intact. Motor and sensory are also intact. Normal speech, volume and content. Symmetrical smile. MUSCULOSKELETAL: Normal extremities with adequate strength and full range of motion. No lower extremity swelling or edema. No calf tenderness. LYMPHATICS: No significant lymphadenopathy is noted PSYCHIATRIC: Difficult to assess because of patient's mental status Course Vital Signs 12/14/16 12/14/16 12/14/16 20:31 20:52 21:46 Temperature 100.0 F H Pulse Rate 62 59 L Respiratory 18 18 Rate Blood Pressure 114/51 106/51 O2 Sat by Pulse 100 100 Oximetry Medical Decision Making - Medical Decision Making EKG shows sinus bradycardia 59 bpm LA interval is 158 QRS is 90 QT interval is 450 QTC is 445. Patient's EKG was compared to an old EKG in no acute changes are noted. I started the patient on Levaquin because of urinary tract infection. I spoke with Dr. Dr. Gordon he agreed to admit the patient admitted the patient. - Lab Data Result diagrams: 12/14/16 20:54 12/14/16 20:54 Lab Results 12/14/16 12/14/16 12/14/16 Range/Units 20:52 20:54 20:54 WBC 6.7 (3.8-10.6) k/uL RBC 3.16 L (3.80-5.40) m/uL Hgb 9.7 L D (11.4-16.0) gm/dL Hct 30.5 L (34.0-46.0) % MCV 96.5 (80.0-100.0) fL MCH 30.7 (25.0-35.0) pg MCHC 31.9 (31.0-37.0) g/dL RDW 17.9 H (11.5-15.5) % Plt Count 201 (150-450) k/uL Neutrophils % 65 % Lymphocytes % 28 % Monocytes % 5 % Eosinophils % 1 % Basophils % 0 % Neutrophils # 4.3 (1.3-7.7) k/uL Lymphocytes # 1.9 (1.0-4.8) k/uL Monocytes # 0.4 (0-1.0) k/uL Eosinophils # 0.1 (0-0.7) k/uL Basophils # 0.0 (0-0.2) k/uL Anisocytosis Slight Macrocytosis Slight PT 15.3 H (9.0-12.0) sec INR 1.6 (<1.1) APTT 28.0 (22.0-30.0) sec Sodium (137-145) mmol/L Potassium (3.5-5.1) mmol/L Chloride (98-107) mmol/L Carbon Dioxide (22-30) mmol/L Anion Gap mmol/L BUN (7-17) mg/dL Creatinine (0.52-1.04) mg/dL Est GFR (MDRD) Af Amer (>60 ml/min/1.73 sqM) Est GFR (MDRD) Non-Af (>60 ml/min/1.73 sqM) Glucose (74-99) mg/dL POC Glucose (mg/dL) (75-99) mg/dL POC Glu Licensed Guide ID Plasma Lactic Acid Deion (0.7-2.0) mmol/L Calcium (8.4-10.2) mg/dL Total Bilirubin (0.2-1.3) mg/dL AST (14-36) U/L ALT (9-52) U/L Alkaline Phosphatase (38-126) U/L Total Creatine Kinase (30-135) U/L Total Protein (6.3-8.2) g/dL Albumin (3.5-5.0) g/dL Urine Color Yellow Urine Appearance Turbid H (Clear) Urine pH 5.0 (5.0-8.0) Ur Specific [place] 1.014 (1.001-1.035) Urine Protein 1+ H (Negative) Urine Glucose (UA) Negative (Negative) Urine Ketones Negative (Negative) Urine Blood Trace H (Negative) Urine Nitrate Negative (Negative) Urine Bilirubin 1+ H (Negative) Urine Urobilinogen 2.0 (<2.0) mg/dL Ur Leukocyte Esterase Large H (Negative) Urine WBC 75 H (0-5) /hpf Urine WBC Clumps Many H (None) /hpf Ur Squamous Epith Cells 2 (0-4) /hpf Urine Bacteria Many H (None) /hpf Hyaline Casts 631 H (0-2) /lpf Urine Opiates Screen Not Detected (NotDetected) Ur Oxycodone Screen Not Detected (NotDetected) Urine Methadone Screen Not Detected (NotDetected) Ur Propoxyphene Screen Not Detected (NotDetected) Ur Barbiturates Screen Not Detected (NotDetected) U Tricyclic Antidepress Not Detected (NotDetected) Ur Phencyclidine Scrn Not Detected (NotDetected) Ur Amphetamines Screen Not Detected (NotDetected) U Methamphetamines Scrn Not Detected (NotDetected) U Benzodiazepines Scrn Not Detected (NotDetected) Urine Cocaine Screen Not Detected (NotDetected) U Marijuana (THC) Screen Detected H (NotDetected) 12/14/16 12/14/16 12/14/16 Range/Units 20:54 20:54 20:54 WBC (3.8-10.6) k/uL RBC (3.80-5.40) m/uL Hgb (11.4-16.0) gm/dL Hct (34.0-46.0) % MCV (80.0-100.0) fL MCH (25.0-35.0) pg MCHC (31.0-37.0) g/dL RDW (11.5-15.5) % Plt Count (150-450) k/uL Neutrophils % % Lymphocytes % % Monocytes % % Eosinophils % % Basophils % % Neutrophils # (1.3-7.7) k/uL Lymphocytes # (1.0-4.8) k/uL Monocytes # (0-1.0) k/uL Eosinophils # (0-0.7) k/uL Basophils # (0-0.2) k/uL Anisocytosis Macrocytosis PT (9.0-12.0) sec INR (<1.1) APTT (22.0-30.0) sec Sodium 138 (137-145) mmol/L Potassium 4.3 (3.5-5.1) mmol/L Chloride 105 (98-107) mmol/L Carbon Dioxide 23 (22-30) mmol/L Anion Gap 10 mmol/L BUN 39 H (7-17) mg/dL Creatinine 3.50 H (0.52-1.04) mg/dL Est GFR (MDRD) Af Amer 15 (>60 ml/min/1.73 sqM) Est GFR (MDRD) Non-Af 13 (>60 ml/min/1.73 sqM) Glucose 90 (74-99) mg/dL POC Glucose (mg/dL) (75-99) mg/dL POC Glu Licensed Guide ID Plasma Lactic Acid Deion 1.9 (0.7-2.0) mmol/L Calcium 8.3 L (8.4-10.2) mg/dL Total Bilirubin 1.1 (0.2-1.3) mg/dL AST 30 (14-36) U/L ALT 42 (9-52) U/L Alkaline Phosphatase 82 (38-126) U/L Total Creatine Kinase 76 (30-135) U/L Total Protein 5.8 L (6.3-8.2) g/dL Albumin 2.7 L (3.5-5.0) g/dL Urine Color Urine Appearance (Clear) Urine pH (5.0-8.0) Ur Specific [place] (1.001-1.035) Urine Protein (Negative) Urine Glucose (UA) (Negative) Urine Ketones (Negative) Urine Blood (Negative) Urine Nitrate (Negative) Urine Bilirubin (Negative) Urine Urobilinogen (<2.0) mg/dL Ur Leukocyte Esterase (Negative) Urine WBC (0-5) /hpf Urine WBC Clumps (None) /hpf Ur Squamous Epith Cells (0-4) /hpf Urine Bacteria (None) /hpf Hyaline Casts (0-2) /lpf Urine Opiates Screen (NotDetected) Ur Oxycodone Screen (NotDetected) Urine Methadone Screen (NotDetected) Ur Propoxyphene Screen (NotDetected) Ur Barbiturates Screen (NotDetected) U Tricyclic Antidepress (NotDetected) Ur Phencyclidine Scrn (NotDetected) Ur Amphetamines Screen (NotDetected) U Methamphetamines Scrn (NotDetected) U Benzodiazepines Scrn (NotDetected) Urine Cocaine Screen (NotDetected) U Marijuana (THC) Screen (NotDetected) 12/14/16 Range/Units 20:56 WBC (3.8-10.6) k/uL RBC (3.80-5.40) m/uL Hgb (11.4-16.0) gm/dL Hct (34.0-46.0) % MCV (80.0-100.0) fL MCH (25.0-35.0) pg MCHC (31.0-37.0) g/dL RDW (11.5-15.5) % Plt Count (150-450) k/uL Neutrophils % % Lymphocytes % % Monocytes % % Eosinophils % % Basophils % % Neutrophils # (1.3-7.7) k/uL Lymphocytes # (1.0-4.8) k/uL Monocytes # (0-1.0) k/uL Eosinophils # (0-0.7) k/uL Basophils # (0-0.2) k/uL Anisocytosis Macrocytosis PT (9.0-12.0) sec INR (<1.1) APTT (22.0-30.0) sec Sodium (137-145) mmol/L Potassium (3.5-5.1) mmol/L Chloride (98-107) mmol/L Carbon Dioxide (22-30) mmol/L Anion Gap mmol/L BUN (7-17) mg/dL Creatinine (0.52-1.04) mg/dL Est GFR (MDRD) Af Amer (>60 ml/min/1.73 sqM) Est GFR (MDRD) Non-Af (>60 ml/min/1.73 sqM) Glucose (74-99) mg/dL POC Glucose (mg/dL) 117 H (75-99) mg/dL POC Glu Licensed Guide ID Fifi Garibay Plasma Lactic Acid Deion (0.7-2.0) mmol/L Calcium (8.4-10.2) mg/dL Total Bilirubin (0.2-1.3) mg/dL AST (14-36) U/L ALT (9-52) U/L Alkaline Phosphatase (38-126) U/L Total Creatine Kinase (30-135) U/L Total Protein (6.3-8.2) g/dL Albumin (3.5-5.0) g/dL Urine Color Urine Appearance (Clear) Urine pH (5.0-8.0) Ur Specific [place] (1.001-1.035) Urine Protein (Negative) Urine Glucose (UA) (Negative) Urine Ketones (Negative) Urine Blood (Negative) Urine Nitrate (Negative) Urine Bilirubin (Negative) Urine Urobilinogen (<2.0) mg/dL Ur Leukocyte Esterase (Negative) Urine WBC (0-5) /hpf Urine WBC Clumps (None) /hpf Ur Squamous Epith Cells (0-4) /hpf Urine Bacteria (None) /hpf Hyaline Casts (0-2) /lpf Urine Opiates Screen (NotDetected) Ur Oxycodone Screen (NotDetected) Urine Methadone Screen (NotDetected) Ur Propoxyphene Screen (NotDetected) Ur Barbiturates Screen (NotDetected) U Tricyclic Antidepress (NotDetected) Ur Phencyclidine Scrn (NotDetected) Ur Amphetamines Screen (NotDetected) U Methamphetamines Scrn (NotDetected) U Benzodiazepines Scrn (NotDetected) Urine Cocaine Screen (NotDetected) U Marijuana (THC) Screen (NotDetected) Disposition Clinical Impression: Acute renal failure, Urinary tract infection, Altered mental status Disposition: ADMITTED IP TO THIS HOSP Referrals: Luisaan Quintanilla MD [Primary Care Provider] - 1-2 days Time of Disposition: 21:57
[2016-12-14] MEDS ORDERED: ACETAMINOPHEN TAB 500 MG TAB PO STA (21:01)
[2016-12-14 21:03] LABS: Glucose,Whole Blood 117 mg/dL (75-99)
[2016-12-14 21:23] LABS: Anisocytosis Slight; Basophils % (A) 0 %; CH 31.1; CHCM 32.5; Eosinophils # (A) 0.1 k/uL (0-0.7); Eosinophils % (A) 1 %; HCT 30.5 % (34.0-46.0); HDW 2.56; Luc # (Auto) 0.08; Luc % (Auto) 1; Lymphocytes # (A) 1.9 k/uL (1.0-4.8); Lymphocytes % (A) 28 %; MCH 30.7 pg (25.0-35.0); MCHC 31.9 g/dL (31.0-37.0); MCV 96.5 fL (80.0-100.0); Macrocytosis Slight; Mean Platelet Volume 7.9; Monocytes # (A) 0.4 k/uL (0-1.0); Monocytes % (A) 5 %; Neutrophils # (A) 4.3 k/uL (1.3-7.7); Neutrophils % (A) 65 %; RBC 3.16 m/uL (3.80-5.40); RDW 17.9 % (11.5-15.5); WBC 6.7 k/uL (3.8-10.6); WBC (Perox) 6.54
[2016-12-14 21:24] LABS: Appearance,Urine Turbid (Clear); Bacteria,Urine Many /hpf; Bilirubin,Urine 1+ (Negative); Glucose,Urine (UA) Negative (Negative); Ketones,Urine Negative (Negative); Leukocyte Esterase,Urine Large (Negative); Nitrite,Urine Negative (Negative); Particle Count 27208; Protein,Urine 1+ (Negative); Specific Gravity,Urine 1.014 (1.001-1.035); Squamous Epithelial Cell,Urine 2 /hpf (0-4); UA Billing (MACRO vs. MICRO) MICRO; WBC,Urine 75 /hpf (0-5)
[2016-12-14 21:25] LABS: HGB 9.7 gm/dL (11.4-16.0)
[2016-12-14 21:26] LABS: INR 1.6 (<1.1); Prothrombin Time 15.3 sec (9.0-12.0)
[2016-12-14] MEDS ORDERED: LEVOFLOXACIN 750MG-D5W PMX 750 MG in DEXTROSE/WATER 1 150ML.BAG IVPB STA (21:26)
[2016-12-14 21:32] LABS: Calcium 8.3 mg/dL (8.4-10.2); Total Bilirubin 1.1 mg/dL (0.2-1.3)
--- NOTE | 2016-12-14 21:44 | CT ---
EXAMINATION TYPE: CT brain wo con DATE OF EXAM: 12/14/2016 9:30 PM COMPARISON: Yesterday HISTORY: Altered mental status. Fall couple days ago. Headache. CT DLP: 1153.00 mGycm Automated exposure control for dose reduction was used. FINDINGS: There is opacification of the right maxillary sinus. There is mild cerebral cortical atrophy. There i s no mass effect nor midline shift. There is no sign of intracranial hemorrhage. Calvarium is intact. IMPRESSION: Cerebral atrophy. Right-sided maxillary and ethmoid sinusitis. No change compared to yesterday.
--- NOTE | 2016-12-14 21:45 | XR ---
EXAMINATION TYPE: XR chest 2V DATE OF EXAM: 12/14/2016 9:31 PM COMPARISON: 11/25/2016 HISTORY: Altered mental status TECHNIQUE: Frontal and lateral views of the chest are obtained. FINDINGS: Heart is normal. Lungs are clear of consolidation there are no hilar masses. There are tracy st leads. Thoracic aorta is atheromatous. Costophrenic angles are clear. IMPRESSION: No active cardiopulmonary disease. No change.
[2016-12-14 21:48] LABS: Potassium 4.3 mmol/L (3.5-5.1); Total Protein 5.8 g/dL (6.3-8.2)
[2016-12-14 22:02] LABS: Creatine Kinase MB 0.6 ng/mL (0.0-2.4); Troponin I 0.022 ng/mL (0.000-0.034)
[2016-12-15] MEDS: MELATONIN 5 MG TABLET PO SCH ×2 (00:27→20:52)
[2016-12-15] MEDS: ACETAMINOPHEN TAB 325 MG TAB PO PRN ×2 (00:27→05:50)
[2016-12-15] MEDS ORDERED: HYDROcodone/APAP 5-325MG 1 EACH TAB PO PRN (08:10)
[2016-12-15] MEDS: ONDANSETRON 4 MG/2 ML VIAL IVP PRN ×2 (08:36→17:26)
[2016-12-15] MEDS ORDERED: DARBEPOETIN ALFA 40 MCG/0.4 ML SYRINGE SQ SCH (09:00)
[2016-12-15] MEDS ORDERED: APIXABAN 5 MG TAB PO SCH (09:00)
[2016-12-15 09:07] LABS: Anisocytosis Slight; CH 31.1; CHCM 32.8; HCT 27.9 % (34.0-46.0); MCH 30.7 pg (25.0-35.0); MCHC 32.2 g/dL (31.0-37.0); MCV 95.4 fL (80.0-100.0); Macrocytosis Slight; Mean Platelet Volume 7.9; RBC 2.92 m/uL (3.80-5.40); RDW 17.8 % (11.5-15.5); WBC 5.2 k/uL (3.8-10.6)
[2016-12-15 09:28] LABS: Calcium 7.8 mg/dL (8.4-10.2); Potassium 3.7 mmol/L (3.5-5.1)
[2016-12-15] MEDS ORDERED: NON-FORMULARY DRUG (Lactose-Reduced Food [Ensure Plus] 1 CAN) PO SCH (10:00)
--- NOTE | 2016-12-15 10:28 | P.NPCON ---
History of Present Illness - Reason for Consult acute renal failure - History of Present Illness Reason for consultation: Acute kidney injury History of present illness: Patient is a 76-year-old female seen in renal consultation for acute kidney injury. Patient states she's been having nausea and has not been able to tolerate oral intake for the last 2-3 weeks. She had blood work done and was noted to be in acute kidney injury and was sent to the hospital for further care. On admission her creatinine was 3.5 and is improved at 2.85 with IV hydration. Her baseline creatinine is in the range of 1.1-1.2. Currently resting in bed. Patient is not a very reliable historian. She appears quite anxious. She is incontinent but has been voiding. She was diagnosed with urinary tract infection with urine culture positive for enterococcus and is currently maintained on linezolid. I don't see any NSAIDs listed in her home medications. Diuretics are currently held. Vital signs are stable. General: The patient appeared well nourished and normally developed. HEENT: Head exam is unremarkable. Neck is without jugular venous distension. LUNGS: Lungs are clear to auscultation and percussion. Breath sounds decreased. HEART: Rate and Rhythm are regular. First and second heart sounds normal. No murmurs, rubs or gallops. ABDOMEN: Abdominal exam reveals normal bowel sounds. Non-tender and non- distended. No evidence of peritonitis. EXTREMITITES: No clubbing, cyanosis, or edema. Past Medical History Past Medical History: Cancer, GERD/Reflux, Hyperlipidemia, Hypertension Additional Past Medical History / Comment(s): Breast CA History of Any Multi-Drug Resistant Organisms: None Reported Past Surgical History: Breast Surgery, Orthopedic Surgery Additional Past Surgical History / Comment(s): LEFT SHOULDER. LEFT FOOT. double mastectomy in september of 2016, ex-lap with SBR for ischmemic bowl on Past Anesthesia/Blood Transfusion Reactions: Motion Sickness, Postoperative Nausea & Vomiting (PONV) Additional Past Anesthesia/Blood Transfusion Reaction / Comment(s): PATIENT STATES HER TEETH IMPLANTS WERE DISLODGED DURING INTUBATION AND SHE SWALLOWED A TOOTH. Past Psychological History: No Psychological Hx Reported Smoking Status: Former smoker Past Alcohol Use History: None Reported Additional Past Alcohol Use History / Comment(s): Quit in 1984, smoked less than 1/2 PPD for 25 yrs. Past Drug Use History: None Reported - Past Family History Mother Family Medical History: No Reported History Medications and Allergies Home Medications Medication Instructions Recorded Confirmed Type Atorvastatin [Lipitor] 10 mg PO HS@209907/31/16 12/14/16 History Metoprolol Succinate [Toprol XL] 100 mg PO DAILY@2100 07/31/16 12/14/16 History Omeprazole 20 mg PO DAILY 07/31/16 12/14/16 History Amiodarone [Cordarone] 200 mg PO DAILY 11/24/16 12/14/16 History Apixaban [Eliquis] 5 mg PO BID 11/24/16 12/14/16 History Ferrous Sulfate [Feosol] 325 mg PO DAILY 11/24/16 12/14/16 History Sennosides-Docusate Sodium 1 tab PO BID 11/24/16 12/14/16 History [Senokot-S] Acetaminophen Tab [Tylenol Tab] 650 mg PO Q4H PRN 12/14/16 12/14/16 History Cholecalciferol [Vitamin D3] 2,000 unit PO HS 12/14/16 12/14/16 History Cyanocobalamin [Vitamin B-12] 500 mcg PO DAILY 12/14/16 12/14/16 History Darbepoetin Matty [Aranesp] 40 mcg SQ Q30D 12/14/16 12/15/16 History Dronabinol [Marinol] 5 mg PO BID 12/14/16 12/14/16 History Furosemide [Lasix] 40 mg PO MOWEFR 12/14/16 12/14/16 History Lactose-Reduced Food [Ensure Plus] 1 can PO TID BETWEEN MEALS 12/14/16 12/14/16 History Melatonin 6 mg PO HS 12/14/16 12/14/16 History Potassium Chloride [Klor-Con] 20 meq PO DAILY 12/14/16 12/14/16 History Allergies Allergy/AdvReac Type Severity Reaction Status Date / Time No Known Allergies Allergy Verified 12/14/16 23:06 Physical Exam Vitals: Vital Signs Temp Pulse Pulse Resp BP BP Pulse Ox 12/15/16 07:00 97.4 F L 71 16 118/52 98 12/14/16 23:00 96.5 F L 65 19 111/51 100 12/14/16 22:28 96.7 F L 70 18 102/50 99 Intake and Output 12/14/16 12/15/16 12/15/16 22:59 06:59 14:59 Other: Voiding Method Diaper Diaper # Voids 1 Weight 87.09 kg Results - Lab Results Most recent lab results Calcium 7.8 mg/dL (8.4-10.2) L 12/15/16 08:46 12/15/16 08:46 12/15/16 08:46 Assessment and Plan Plan: Assessment: #1. Nonoliguric acute kidney injury mostly prerenal in nature secondary to poor oral intake and vomiting. Improving. Creatinine was 3.5 on admission and is down to 2.85 today. Baseline creatinine is near 1.1-1.2. #2. Rule out chronic kidney disease. Recent urinalysis noted to be benign. #3. Recent urinary tract infection with urine culture positive for enterococcus maintained on linezolid. #4. Anemia. Rule out iron deficiency. #5. Altered mental status. Patient did sustain a fall recently. CT of the scan does not reveal any acute abnormalities however she does have significant cerebral atrophy. Plan: Continue normal saline to be run at 100 mL an hour. Check iron studies. Check urine culture. Avoid nephrotoxic agents and hypotensive episodes. Repeat electrolytes in the morning. Thank you for the consultation. I will continue to follow the patient with you during her hospital stay.
[2016-12-15] MEDS: LINEZOLID 600 MG in DEXTROSE/WATER 1 300ML.BAG IVPB SCH ×2 (10:44→20:51)
[2016-12-15 11:07] LABS: % Iron Saturation 21.3 % (20-50)
[2016-12-15] MEDS: POTASSIUM CHLORIDE ER 20 MEQ TAB.ER PO SCH ×2 (11:22→11:33)
[2016-12-15] MEDS: FERROUS SULFATE 325 MG TAB PO SCH (11:22)
[2016-12-15] MEDS: SENNOSIDES-DOCUSATE SODIUM 1 EACH TAB PO SCH ×2 (11:22→21:09)
[2016-12-15] MEDS: PANTOPRAZOLE 40 MG TABLET PO SCH (11:23)
[2016-12-15] MEDS: DRONABINOL 2.5 MG CAP PO SCH ×2 (11:23→20:52)
[2016-12-15] MEDS: CYANOCOBALAMIN 500 MCG TAB PO SCH (11:23)
[2016-12-15] MEDS: AMIODARONE 200 MG TAB PO SCH (11:23)
--- NOTE | 2016-12-15 13:36 | XR ---
EXAMINATION TYPE: XR Hip Complete RT DATE OF EXAM: 12/15/2016 12:15 PM COMPARISON: NONE HISTORY: 76 year-old female right hip pain, fall a few days ago TECHNIQUE: 2 views FINDINGS: There is mild degenerative joint space narrowing with subchondral sclerosis and marginal spurring at the right hip. No acute fracture, subluxation, or dislocation. IMPRESSION: Mild right hip osteoarthrosis. No acute osseous abnormality seen.
--- NOTE | 2016-12-15 13:53 | CT ---
EXAMINATION TYPE: CT abdomen pelvis wo con DATE OF EXAM: 12/15/2016 12:34 PM COMPARISON: 11/25/2016 and 09/28/2016 HISTORY: 76-year-old female Generalized abdominal pain and nausea CT DLP: 891.40 mGycm. Automated exposure control for dose reduction was used. TECHNIQUE: Contiguous axial scanning of the abdomen and pelvis without IV contrast. Coronal and sagit horacio reconstructions performed. FINDINGS: Bilateral breast implants are visualized. There are internal septations that could reflect prominent radial folds or intracapsular rupture. Heart is upper limits of normal in size with mitral annular calcifications and coronary vessel calcif ications. Suspected PFO closure device. Findings at the left base probably represent patchy atelectasis or scarring. No pleural effusion. There is a small hiatal hernia. Respiratory motion limits the evaluation. Low density of the hepatic parenchyma compatible with fatty infiltration. Gallbladder, adrenal glands , kidneys, spleen, atrophic pancreas show no gross abnormality by noncontrast CT. Suggestion of prior incisional scar along the anterior abdominal wall. No dilated small bowel, free fluid, or free air. There is some submucosal fat deposition within the c ecum which could be secondary to obesity or previous bouts of recurrent inflammation no pericolonic i nflammatory change. No mesenteric or retroperitoneal lymphadenopathy. Mild to moderate atherosclerotic calcifications within the abdominal aorta and iliac arteries without aneurysm. Bladder is urine distended. Uterus and both ovaries are visualized. No abnormal fluid collection in t he pelvis or pelvic lymphadenopathy. Bones: Degenerative changes mid to lower lumbar spine. Additional degenerative disc disease within th e thoracic spine and thoracolumbar junction. No osseous destructive process. IMPRESSION: 1. Similar findings involving the partially visualized breast prostheses; correlate to exclude impla nt rupture. 2. Hepatic steatosis. Correlate with LFTs, lipid profile, and patient risk factors. 3. Small hiatal hernia. 4. Otherwise, no acute inflammatory process identified in the abdomen or pelvis to explain the patie nt's symptoms.
--- NOTE | 2016-12-15 13:55 | P.CONS ---
History of Present Illness - Reason for Consult Consult date: 12/15/16 Urinary tract infection - History of Present Illness This is a 76-year-old female. Patient had a recent hospitalization at [facility] from November 24 through the and was transferred to [facility]. Patient presented with hemoglobin of 5 and underwent transfusion of 2 units packed RBCs. NG tube was placed and a CAT scan was ordered which found no obstruction. 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 She had followed up on 2 occasions in October and was improving at that time she then presented to [facility] with associated foot & nausea and vomiting and no bowel movement for several days. She also presented with a creatinine of 1.65. She was discharged from [facility] on November 29 and return to [facility] on the [place] where she has been receiving rehab. She underwent EGD on November 27 that was negative and colonoscopy was to be scheduled as an outpatient. Her hemoglobin maintained at 7.8-7.9 and she was starting a regular diet. Eliquis was resumed. Patient now presents from [facility] to [facility] emergency center by EMS for dehydration and elevated creatinine. CAT scan of the brain showed cerebral atrophy with right-sided maxillary and ethmoid sinusitis and no change compared to prior. Chest x-ray shows no acute cardiopulmonary disease. On recent blood draw her BUN was 35 and creatinine 3.10 and repeat here is 39 and 3.50. Patient is complaining of pain all over especially in the back and the hips right more so than left. Apparently she has had falls at [facility]. Blood pressure was low with a heart rate of 47. Apparently patient has not been eating and drinking and had worsening confusion. Patient does complain of nausea without vomiting and complains of dizziness with movement. White count 6.7, hemoglobin 9.7. BUN 39 and creatinine 3.5. Urinalysis was turbid, blood trace, leukoesterase large, WBC 75, WBC clumps many, bacteria many, Hylan casts 631. Urine drug screen was positive for marijuana and patient is on Marinol. Patient was started on Levaquin and admitted to the [facility] floor. Antibiotic was subsequently changed to Zyvox as her last urine culture done on November 24 was enterococcus gallinarum, multidrug resistant. Right hip x-ray was done that showed osteoarthrosis with no acute abnormality. CAT scan of the abdomen and pelvis without contrast has been done and report is pending. Patient has been seen by Dr. Penaloza for non-oliguric acute kidney injury. Past Medical History Past Medical History: Cancer, GERD/Reflux, Hyperlipidemia, Hypertension Additional Past Medical History / Comment(s): Breast CA status post bilateral mastectomy and implant placement September 2016, ischemic bowel status post exploratory laparotomy History of Any Multi-Drug Resistant Organisms: None Reported Past Surgical History: Breast Surgery, Orthopedic Surgery Additional Past Surgical History / Comment(s): LEFT SHOULDER. LEFT FOOT. Bilateral mastectomy in september of 2016, ex-lap with SBR for ischmemic bowl on 09/29/16 Past Anesthesia/Blood Transfusion Reactions: Motion Sickness, Postoperative Nausea & Vomiting (PONV) Additional Past Anesthesia/Blood Transfusion Reaction / Comm: PATIENT STATES HER TEETH IMPLANTS WERE DISLODGED DURING INTUBATION AND SHE SWALLOWED A TOOTH. Past Psychological History: No Psychological Hx Reported Smoking Status: Former smoker Past Alcohol Use History: None Reported Additional Past Alcohol Use History / Comment(s): Quit in 1984, smoked less than 1/2 PPD for 25 yrs. Past Drug Use History: None Reported - Past Family History Mother Family Medical History: No Reported History Medications and Allergies Home Medications Medication Instructions Recorded Confirmed Type Atorvastatin [Lipitor] 10 mg PO HS@2100 07/31/16 12/14/16 History Metoprolol Succinate [Toprol XL] 100 mg PO DAILY@2100 07/31/16 12/14/16 History Omeprazole 20 mg PO DAILY 07/31/16 12/14/16 History Amiodarone [Cordarone] 200 mg PO DAILY 11/24/16 12/14/16 History Apixaban [Eliquis] 5 mg PO BID 11/24/16 12/14/16 History Ferrous Sulfate [Feosol] 325 mg PO DAILY 11/24/16 12/14/16 History Sennosides-Docusate Sodium 1 tab PO BID 11/24/16 12/14/16 History [Senokot-S] Acetaminophen Tab [Tylenol Tab] 650 mg PO Q4H PRN 12/14/16 12/14/16 History Cholecalciferol [Vitamin D3] 2,000 unit PO HS 12/14/16 12/14/16 History Cyanocobalamin [Vitamin B-12] 500 mcg PO DAILY 12/14/16 12/14/16 History Darbepoetin Matty [Aranesp] 40 mcg SQ Q30D 12/14/16 12/15/16 History Dronabinol [Marinol] 5 mg PO BID 12/14/16 12/14/16 History Furosemide [Lasix] 40 mg PO MOWEFR 12/14/16 12/14/16 History Lactose-Reduced Food [Ensure Plus] 1 can PO TID BETWEEN MEALS 12/14/16 12/14/16 History Melatonin 6 mg PO HS 12/14/16 12/14/16 History Potassium Chloride [Klor-Con] 20 meq PO DAILY 12/14/16 12/14/16 History Allergies Allergy/AdvReac Type Severity Reaction Status Date / Time No Known Allergies Allergy Verified 12/14/16 23:06 Physical Exam Vitals: Vital Signs Temp Pulse Pulse Resp BP BP Pulse Ox 12/15/16 07:00 97.4 F L 71 16 118/52 98 12/14/16 23:00 96.5 F L 65 19 111/51 100 12/14/16 22:28 96.7 F L 70 18 102/50 99 Intake and Output 12/14/16 12/15/16 12/15/16 22:59 06:59 14:59 Other: Voiding Method Diaper Diaper # Voids 1 Weight 87.09 kg Gen: This is a 76-year-old female. HEENT: Head is atraumatic, normocephalic. Pupils equal, round. Sclerae is anicteric. NECK: Supple. No JVD. No lymphadenopathy. No thyromegaly. LUNGS: Clear to auscultation. No wheezes or rhonchi. No intercostal retractions. HEART: Regular rate and rhythm. No murmur. ABDOMEN: Soft. Bowel sounds are present. No masses. Generalized tenderness. EXTREMITIES: Positive bilateral pedal edema. No calf tenderness. NEUROLOGICAL: Patient is awake, alert and oriented x3 but with mild confusion. Cranial nerves 2 through 12 are grossly intact. Results Results: Laboratory Results WBC 5.2 k/uL (3.8-10.6) 12/15/16 08:46 RBC 2.92 m/uL (3.80-5.40) L 12/15/16 08:46 Hgb 9.0 gm/dL (11.4-16.0) L 12/15/16 08:46 Hct 27.9 % (34.0-46.0) L 12/15/16 08:46 MCV 95.4 fL (80.0-100.0) 12/15/16 08:46 MCH 30.7 pg (25.0-35.0) 12/15/16 08:46 MCHC 32.2 g/dL (31.0-37.0) 12/15/16 08:46 RDW 17.8 % (11.5-15.5) H 12/15/16 08:46 Plt Count 205 k/uL (150-450) 12/15/16 08:46 Neutrophils % 65 % 12/14/16 20:54 Lymphocytes % 28 % 12/14/16 20:54 Monocytes % 5 % 12/14/16 20:54 Eosinophils % 1 % 12/14/16 20:54 Basophils % 0 % 12/14/16 20:54 Neutrophils # 4.3 k/uL (1.3-7.7) 12/14/16 20:54 Lymphocytes # 1.9 k/uL (1.0-4.8) 12/14/16 20:54 Monocytes # 0.4 k/uL (0-1.0) 12/14/16 20:54 Eosinophils # 0.1 k/uL (0-0.7) 12/14/16 20:54 Basophils # 0.0 k/uL (0-0.2) 12/14/16 20:54 Anisocytosis Slight 12/15/16 08:46 Macrocytosis Slight 12/15/16 08:46 PT 15.3 sec (9.0-12.0) H 12/14/16 20:54 INR 1.6 (<1.1) 12/14/16 20:54 APTT 28.0 sec (22.0-30.0) 12/14/16 20:54 Sodium 142 mmol/L (137-145) 12/15/16 08:46 Potassium 3.7 mmol/L (3.5-5.1) 12/15/16 08:46 Chloride 109 mmol/L (98-107) H 12/15/16 08:46 Carbon Dioxide 22 mmol/L (22-30) 12/15/16 08:46 Anion Gap 11 mmol/L 12/15/16 08:46 BUN 35 mg/dL (7-17) H 12/15/16 08:46 Creatinine 2.85 mg/dL (0.52-1.04) H 12/15/16 08:46 Est GFR (MDRD) Af Amer 19 (>60 ml/min/1.73 sqM) 12/15/16 08:46 Est GFR (MDRD) Non-Af 16 (>60 ml/min/1.73 sqM) 12/15/16 08:46 Glucose 82 mg/dL (74-99) 12/15/16 08:46 POC Glucose (mg/dL) 117 mg/dL (75-99) H 12/14/16 20:56 POC Glu Dye House Hand ID Fifi Garibay 12/14/16 20:56 Plasma Lactic Acid De[place] 1.9 mmol/L (0.7-2.0) 12/14/16 20:54 Calcium 7.8 mg/dL (8.4-10.2) L 12/15/16 08:46 Iron 33 ug/dL (37-170) L 12/14/16 20:54 TIBC 155 ug/dL (265-497) L 12/14/16 20:54 % Saturation 21.3 % (20-50) 12/14/16 20:54 Ferritin 298 ng/mL (11-264) H 12/14/16 20:54 Total Bilirubin 1.1 mg/dL (0.2-1.3) 12/14/16 20:54 AST 30 U/L (14-36) 12/14/16 20:54 ALT 42 U/L (9-52) 12/14/16 20:54 Alkaline Phosphatase 82 U/L (38-126) 12/14/16 20:54 Total Creatine Kinase 76 U/L (30-135) 12/14/16 20:54 CK-MB (CK-2) 0.6 ng/mL (0.0-2.4) 12/14/16 20:54 CK-MB (CK-2) Rel Index 0.8 12/14/16 20:54 Troponin I 0.022 ng/mL (0.000-0.034) 12/14/16 20:54 Total Protein 5.8 g/dL (6.3-8.2) L 12/14/16 20:54 Albumin 2.7 g/dL (3.5-5.0) L 12/14/16 20:54 Urine Color Yellow 12/14/16 20:52 Urine Appearance Turbid (Clear) H 12/14/16 20:52 Urine pH 5.0 (5.0-8.0) 12/14/16 20:52 Ur Specific [place] 1.014 (1.001-1.035) 12/14/16 20:52 Urine Protein 1+ (Negative) H 12/14/16 20:52 Urine Glucose (UA) Negative (Negative) 12/14/16 20:52 Urine Ketones Negative (Negative) 12/14/16 20:52 Urine Blood Trace (Negative) H 12/14/16 20:52 Urine Nitrate Negative (Negative) 12/14/16 20:52 Urine Bilirubin 1+ (Negative) H 12/14/16 20:52 Urine Urobilinogen 2.0 mg/dL (<2.0) 12/14/16 20:52 Ur Leukocyte Esterase Large (Negative) H 12/14/16 20:52 Urine WBC 75 /hpf (0-5) H 12/14/16 20:52 Urine WBC Clumps Many /hpf (None) H 12/14/16 20:52 Ur Squamous Epith Cells 2 /hpf (0-4) 12/14/16 20:52 Urine Bacteria Many /hpf (None) H 12/14/16 20:52 Hyaline Casts 631 /lpf (0-2) H 12/14/16 20:52 Urine Opiates Screen Not Detected (NotDetected) 12/14/16 20:52 Ur Oxycodone Screen Not Detected (NotDetected) 12/14/16 20:52 Urine Methadone Screen Not Detected (NotDetected) 12/14/16 20:52 Ur Propoxyphene Screen Not Detected (NotDetected) 12/14/16 20:52 Ur Barbiturates Screen Not Detected (NotDetected) 12/14/16 20:52 U Tricyclic Antidepress Not Detected (NotDetected) 12/14/16 20:52 Ur Phencyclidine Scrn Not Detected (NotDetected) 12/14/16 20:52 Ur Amphetamines Screen Not Detected (NotDetected) 12/14/16 20:52 U Methamphetamines Scrn Not Detected (NotDetected) 12/14/16 20:52 U Benzodiazepines Scrn Not Detected (NotDetected) 12/14/16 20:52 Urine Cocaine Screen Not Detected (NotDetected) 12/14/16 20:52 U Marijuana (THC) Screen Detected (NotDetected) H 12/14/16 20:52 CBC & Chem 7: 12/19/16 07:50 12/19/16 07:50 Labs: Abnormal Lab Results - Last 24 Hours (Table) 12/15/16 12/15/16 Range/Units 08:46 08:46 RBC 2.92 L (3.80-5.40) m/uL Hgb 9.0 L (11.4-16.0) gm/dL Hct 27.9 L (34.0-46.0) % RDW 17.8 H (11.5-15.5) % Chloride 109 H (98-107) mmol/L BUN 35 H (7-17) mg/dL Creatinine 2.85 H (0.52-1.04) mg/dL Calcium 7.8 L (8.4-10.2) mg/dL Assessment and Plan Plan: This is a 76-year-old female who presented to the hospital with acute kidney injury, acute urinary tract infection with sepsis, dehydration, hypotension and mild metabolic encephalopathy. Urine culture to be obtained. Recent urine culture was positive for enterococcus scour narrow susceptible to Zyvox. Blood culture is status received. Continue supportive care. Further recommendations as patient progresses. The above dictated assessment and findings were discussed with Dr. Martinez. The impression and plan of care have been directed as dictated. Mayi Lindsay nurse practitioner acting as scribe for Dr. Martinez. Time with Patient: Greater than 30
--- NOTE | 2016-12-15 14:48 | P.HPIM ---
History of Present Illness H&P Date: 12/15/16 Chief Complaint: Sepsis, UTI, worsening confusion, right hip pain, encephalopathy, increase 76-year-old female was hospitalized in to to 11/25/2016 for acute blood loss anemia with hemoglobin of 5.0 with intractable nausea with no vomiting she had recent hemicolectomy at [facility] she was hospitalized had blood transfusion her hemoglobin was stabilized and ended up going back to [facility] on [facility] which she seen Dr. Quintanilla a regular basis. Earlier last year in September patient was transferred to [facility] for severe abdominal pain and severe anemia and end up going for exploratory laparotomy with SVR for ischemic bowel on 09/29/2016 and return to the OR for closure Handswen anastomosis 2 at [facility] on 09/30/2016. She had 2 different occasions in October when she presented to [facility] complaining of nausea and vomiting along with no bowel movement for several day she ended up going for EGD on November 27 was negative and colonoscopy was scheduled as an outpatient hemoglobin was pain above 7 did not require any further transfusion and did well going back to [facility] on the [place] her anticoagulation was resumed was doing better with it. Patient presented to [facility] department [facility] in 12/14/2016 with change mental status worsening confusion dehydration significantly elevated creatinine BUN with stage III chronic kidney disease along with acute kidney injury possible ATN. Patient found to have UTI as well was started on IV antibiotics with Levaquin hydration and admitted to the hospital. Surprisingly continue complain of worsening abdominal pain along with worsening lower back pain and right sided hip pain with no recent injury. Review of Systems Constitutional: Reports anorexia, Reports chronic pain, Reports fatigue, Reports lethargy, Reports weakness, Reports weight loss, Denies as per HPI, Denies chills, Denies chronic headaches, Denies daytime sleepiness, Denies fever , Denies malaise, Denies night sweats, Denies poor appetite, Denies sweats, Denies weight gain Eyes: bilateral as per HPI, bilateral blurred vision Ears, nose, mouth and throat: Reports ant. neck pain, Reports nasal congestion, Reports nasal discharge, Reports sinus pain, Reports sinus pressure, Denies as per HPI, Denies bleeding gums, Denies dental pain, Denies dysphagia, Denies epistaxis, Denies headache, Denies hoarseness, Denies mouth pain, Denies neck fullness/pressure, Denies neck lump, Denies nose pain, Denies odynophagia, Denies post-nasal drip, Denies swelling in mouth, Denies swelling in throat, Denies sore throat, Denies vertigo, Denies voice changes Breasts: bilateral: as per HPI Cardiovascular: Reports chest pain, Reports dyspnea on exertion, Reports edema, Reports high blood pressure, Reports orthopnea, Reports palpitations, Reports rapid heart beat, Denies as per HPI, Denies claudication, Denies decreased exercise tolerance, Denies irregular heart beat, Denies leg edema, Denies lightheadedness, Denies paroxysmal nocturnal dyspnea, Denies phlebitis, Denies shortness of breath, Denies syncope Respiratory: Reports congestion, Reports cough, Reports cough with sputum, Reports dyspnea, Reports hemoptysis, Reports home oxygen, Reports respiratory infections Gastrointestinal: Reports abdominal pain, Reports bloating, Reports BRBPR, Reports constipation, Reports dyspepsia, Reports heartburn, Reports indigestion , Reports loss of appetite, Reports melena, Reports nausea, Denies as per HPI, Denies belching, Denies change in bowel habits, Denies coffee ground emesis, Denies diarrhea, Denies early satiety, Denies excessive gas, Denies hematemesis , Denies hematochezia, Denies jaundice, Denies lactose intolerance, Denies vomiting Genitourinary: Reports prolapse symptoms, Reports stress incontinence, Reports urge incontinence, Denies as per HPI, Denies abnormal vaginal bleeding, Denies decreased libido, Denies difficulty conceiving, Denies difficulty voiding, Denies dysmenorrhea, Denies dyspareunia, Denies dysuria, Denies flank pain, Denies genital sores, Denies hematuria, Denies hot flashes, Denies incomplete emptying, Denies kidney stones, Denies menorrhagia, Denies mixed incontinence, Denies nocturia, Denies pelvic pain, Denies post void dribbling, Denies , Denies urgency, Denies urinary frequency, Denies vaginal discharge, Denies vaginal dryness, Denies vaginal itching, Denies vaginal odor Musculoskeletal: Reports arm numbness/tingling, Reports gait dysfunction, Reports limitation of motion, Reports loss of height, Reports myalgias, Reports neck pain, Denies as per HPI, Denies atrophy, Denies fractures, Denies frequent falls, Denies hot joints, Denies leg numbness/tingling, Denies low back pain, Denies morning stiffness, Denies muscle cramps, Denies muscle weakness, Denies neck stiffness, Denies prior amputations, Denies redness of joints, Denies shooting arm pain, Denies shooting leg pain Musculoskeletal: bilateral: ankle pain, ankle stiffness Integumentary: Reports pruritus, Reports rash, Denies as per HPI, Denies acne, Denies boils, Denies brittle nails, Denies change in hair/nails, Denies color changes, Denies darkening of skin, Denies depigmentation, Denies dryness, Denies foot/leg ulcers, Denies growths, Denies hirsutism, Denies lesions, Denies onychomycosis, Denies sores, Denies striae, Denies unusual bruising, Denies wounds Neurological: Reports ataxia, Reports balance difficulties, Reports change in smell/taste, Reports confusion, Reports gait dysfunction, Reports migraines, Reports numbness, Reports paralysis, Reports tremors, Reports weakness, Denies as per HPI, Denies aphasia, Denies burning pain, Denies change in mentation, Denies change in speech, Denies convulsions, Denies double vision, Denies head injury, Denies headaches, Denies hearing difficulties, Denies lack of coordination, Denies loss of vision, Denies memory loss, Denies motor disturbance, Denies paresthesias, Denies seizures, Denies sensory deficit, Denies spasticity, Denies syncope, Denies tic, Denies tingling, Denies transient paralysis, Denies vertigo, Denies visual changes Psychiatric: Reports anhedonia, Reports anxiety, Reports anxiety attacks, Reports depression, Reports memory loss, Reports mood swings, Reports sadness/ tearfulness, Denies as per HPI, Denies change in appetite, Denies change in libido, Denies change in sleep habits, Denies confusion, Denies difficulty concentrating, Denies disorientation, Denies hallucinations, Denies hopelessness , Denies hypersomnia, Denies insomnia, Denies irritability, Denies paranoia, Denies sleep disturbances, Denies suicidal ideation Endocrine: Reports cold intolerance, Reports fatigue, Reports heat intolerance, Reports high blood sugars, Reports polydipsia, Denies as per HPI, Denies deepening of the voice, Denies excessive sweating, Denies excessive thirst, Denies flushing, Denies increase in ring/shoe/hat size, Denies low blood sugars , Denies nocturia, Denies palpitations, Denies polyphagia, Denies polyuria, Denies proptosis, Denies recent glucocorticoid use, Denies thyroid mass, Denies weight change Hematologic/Lymphatic: Reports easy bleeding, Reports easy bruising, Denies as per HPI, Denies lymphadenopathy, Denies lymphedema, Denies thrombophilia Allergic/Immunologic: Reports allergic rhinitis, Denies as per HPI, Denies anaphylaxis, Denies angioedema, Denies gluten intolerance, Denies persistent infections, Denies seasonal allergies, Denies urticaria, Denies wheezing Past Medical History Past Medical History: Cancer, GERD/Reflux, Hyperlipidemia, Hypertension Additional Past Medical History / Comment(s): Breast CA status post bilateral mastectomy and implant placement September 2016, ischemic bowel status post exploratory laparotomy History of Any Multi-Drug Resistant Organisms: None Reported Past Surgical History: Breast Surgery, Orthopedic Surgery Additional Past Surgical History / Comment(s): LEFT SHOULDER. LEFT FOOT. 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 Past Psychological History: No Psychological Hx Reported Smoking Status: Former smoker Past Alcohol Use History: None Reported Additional Past Alcohol Use History / Comment(s): Quit in 1984, smoked less than 1/2 PPD for 25 yrs. Past Drug Use History: None Reported - Past Family History Mother Family Medical History: No Reported History Medications and Allergies Home Medications Medication Instructions Recorded Confirmed Type Atorvastatin [Lipitor] 10 mg PO HS@209907/31/16 12/14/16 History Metoprolol Succinate [Toprol XL] 100 mg PO DAILY@209907/31/16 12/14/16 History Omeprazole 20 mg PO DAILY 07/31/16 12/14/16 History Amiodarone [Cordarone] 200 mg PO DAILY 11/24/16 12/14/16 History Apixaban [Eliquis] 5 mg PO BID 11/24/16 12/14/16 History Ferrous Sulfate [Feosol] 325 mg PO DAILY 11/24/16 12/14/16 History Sennosides-Docusate Sodium 1 tab PO BID 11/24/16 12/14/16 History [Senokot-S] Acetaminophen Tab [Tylenol Tab] 650 mg PO Q4H PRN 12/14/16 12/14/16 History Cholecalciferol [Vitamin D3] 2,000 unit PO HS 12/14/16 12/14/16 History Cyanocobalamin [Vitamin B-12] 500 mcg PO DAILY 12/14/16 12/14/16 History Darbepoetin Matty [Aranesp] 40 mcg SQ Q30D 12/14/16 12/15/16 History Dronabinol [Marinol] 5 mg PO BID 12/14/16 12/14/16 History Furosemide [Lasix] 40 mg PO MOWEFR 12/14/16 12/14/16 History Lactose-Reduced Food [Ensure Plus] 1 can PO TID BETWEEN MEALS 12/14/16 12/14/16 History Melatonin 6 mg PO HS 12/14/16 12/14/16 History Potassium Chloride [Klor-Con] 20 meq PO DAILY 12/14/16 12/14/16 History Allergies Allergy/AdvReac Type Severity Reaction Status Date / Time No Known Allergies Allergy Verified 12/14/16 23:06 Physical Exam Vitals: Vital Signs Temp Pulse Pulse Resp BP BP Pulse Ox 12/15/16 07:00 97.4 F L 71 16 118/52 98 12/14/16 23:00 96.5 F L 65 19 111/51 100 12/14/16 22:28 96.7 F L 70 18 102/50 99 Intake and Output 12/14/16 12/15/16 12/15/16 22:59 06:59 14:59 Output Total 395 Balance -395 Output: Urine 395 Straight 395 Other: Voiding Method Diaper Diaper # Voids 1 Weight 87.09 kg - Constitutional General appearance: no average body habitus, cooperative, no disheveled, mild distress, no morbidly obese, no no acute distress, no obese, no severe distress , thin - EENT Eyes: no abnormal pupil, no anicteric sclerae, no disc margins sharp, no edentulous, no EOMI, no PERRLA, no fundus normal, no photophobia, no dentition normal, no poor dentition, no ptosis, no scleral icterus, normal appearance ENT: no hard of hearing, no hearing grossly normal, no NA/AT, normal oropharynx , no other, no pharyngeal erythema, no thrush, no tonsillar exudates, no tonsillar swelling Ears: bilateral: normal, bulging - Neck Neck: no lymphadenopathy, normal ROM, no other, no rigidity, no stridor, no thyromegaly Carotids: bilateral: upstroke normal, upstroke delayed Thyroid: bilateral: normal size - Respiratory Respiratory: bilateral: diminished, dullness, rales, rhonchi, wheezing - Cardiovascular Rhythm: regular Heart sounds: normal: S1, S2 Abnormal Heart Sounds: systolic murmur, S3 Gallop - Gastrointestinal Scar tissue from recent surgery and the midline with no sign of infection but had large keloid and area of old hematoma on it. General gastrointestinal: no absent bowel sounds, decreased bowel sounds, distended, no hepatomegaly, no hyperactive bowel sounds, normal bowel sounds, no organomegaly, no rigid, scaphoid, soft, no splenomegaly, tenderness, no umbilical hernia, no ventral hernia - Integumentary Integumentary: no calor, cellulitis, no cyanotic, no decreased turgor, no flushed, no jaundiced, no normal, no normal turgor, pale, rash, no ulcer - Neurologic Neurologic: CNII-XII intact - Musculoskeletal Musculoskeletal: gait normal, generalized weakness, strength equal bilaterally - Psychiatric Psychiatric: A&O x's 3, no appropriate affect, no intact judgment & insight Results CBC & Chem 7: 12/15/16 08:46 12/15/16 08:46 Labs: Abnormal Lab Results - Last 24 Hours (Table) 12/15/16 12/15/16 Range/Units 08:46 08:46 RBC 2.92 L (3.80-5.40) m/uL Hgb 9.0 L (11.4-16.0) gm/dL Hct 27.9 L (34.0-46.0) % RDW 17.8 H (11.5-15.5) % Chloride 109 H (98-107) mmol/L BUN 35 H (7-17) mg/dL Creatinine 2.85 H (0.52-1.04) mg/dL Calcium 7.8 L (8.4-10.2) mg/dL Thrombosis Risk Factor Assmnt - DVT/VTE Prophylaxis DVT/VTE Prophylaxis: Pharmacologic Prophylaxis ordered, Mechanical Prophylaxis ordered - Choose All That Apply Each Factor Represents 1 point: Obesity (BMI >25) Each Risk Factor Represents 3 Points: Age 75 years or older Thrombosis Risk Factor Assessment Total Risk Factor Score: 4 Thrombosis Risk Factor Assessment Level: Moderate Risk Assessment and Plan Plan: 1 acute change mental status: Most likely metabolic encephalopathy secondary to infection, anemia, lower back pain, side effect medication along with UTI. Treat underlying disease. 2 sepsis with UTI: With patient's current condition patient will be on IV antibiotics continue hydration watch symptoms closely repeat UA and wait for culture, with the any unusual infections specially with the resistant bacteria in the past will have patient seen infectious disease. 3 acute kidney injury most likely ATN with chronic kidney disease: Continue hydration repeat BUN/creatinine daily for the next few days. For recurrent abdominal pain with her current symptoms especially with the hemicolectomy along with recurrent obstruction and scar tissue patient will be going for abdominal CT and might consult general surgery. 4 right-sided hip pain with no clear evidence of trauma recently with a current presentation again x-ray of the hip will be done if suspicion for fracture consult or so and possible CT. 5 recurrent anemia with blood transfusion different occasion last few weeks hemoglobin has been stable at this point continue to watch for any further recurrent bleed. 6 chronic edema: Has been on diuretics doing well. 7 A. fib with RVR: Patient has been on Eliquis 5 mg twice a day along with metoprolol 100 mg daily and amiodarone 200 mg a day pulse rates under control currently. 8 hyperlipidemia: Has been on Lipitor. 9 lower back pain with worsening symptom will continue patient on smaller dose of hydrocodone or tramadol along with mild muscle relaxer. 10 recent history of hemicolectomy with complication: Patient still been watch by neurosurgery. No obstruction this time. CODE STATUS: Full code. Expectation from this admission: Patient be in the hospital for more than 2 nights.
[2016-12-15] MEDS: HYDROmorphone 1 MG/ML 1 ML SYRINGE IVP PRN (15:15)
--- NOTE | 2016-12-15 18:10 | P.CON ---
Consult Note - . Consult date: 12/15/16 Assessment/Plan:: This is a 76-year-old female. Patient had a recent hospitalization at [facility] from November 24 through the and was transferred to [facility]. Patient presented with hemoglobin of 5 and underwent transfusion of 2 units packed RBCs. NG tube was placed and a CAT scan was ordered which found no obstruction. Patient had recently undergone exploratory laparotomy with SVR for ischemic bowel on 09/29/2016 and returned OR on 09/30/2016 for closure with handsewn anastomosis 2 at [facility]. She had followed up on 2 occasions in October and was improving at that time she then presented to [facility] with associated foot & nausea and vomiting and no bowel movement for several days. She also presented with a creatinine of 1.65. She was discharged from [facility] on November 29 and return to [facility] on the [place] where she has been receiving rehab. She underwent EGD on November 27 that was negative and colonoscopy was to be scheduled as an outpatient. Her hemoglobin maintained at 7.8-7.9 and she was starting a regular diet. Eliquis was resumed. Patient now presents from [facility] to [facility] emergency center by EMS for dehydration and elevated creatinine. CAT scan of the brain showed cerebral atrophy with right-sided maxillary and ethmoid sinusitis and no change compared to prior. Chest x-ray shows no acute cardiopulmonary disease. On recent blood draw her BUN was 35 and creatinine 3.10 and repeat here is 39 and 3.50. Patient is complaining of pain all over especially in the back and the hips right more so than left. Apparently she has had falls at [facility]. Blood pressure was low with a heart rate of 47. Apparently patient has not been eating and drinking and had worsening confusion. Patient does complain of nausea without vomiting and complains of dizziness with movement. White count 6.7, hemoglobin 9.7. BUN 39 and creatinine 3.5. Urinalysis was turbid, blood trace, leukoesterase large, WBC 75, WBC clumps many, bacteria many, Hylan casts 631. Urine drug screen was positive for marijuana and patient is on Marinol. Patient was started on Levaquin and admitted to the [facility] floor. Antibiotic was subsequently changed to Zyvox as her last urine culture done on November 24 was enterococcus gallinarum, multidrug resistant. Right hip x-ray was done that showed osteoarthrosis with no acute abnormality. CAT scan of the abdomen and pelvis without contrast has been done and and reviewed with radiology. No acute inflammation of the abdominal contents was noted to explain her abdominal symptoms and nausea. Patient has been seen by Dr. Penaloza for non-oliguric acute kidney injury. Please see the consult note as dictated by nurse practitioner Mrs. Mayi Lindsay. The acute kidney injury could be responsible for some of her significant current gastrointestinal side effects. Antibiotic therapy is initiated. Follow-up cultures from process. Ongoing supportive care. I agree with evaluation, assessment and plan as dictated by nurse practitioner Mrs. Mayi Lindsay.
[2016-12-15] MEDS: APIXABAN 2.5 MG TABLET PO SCH (20:51)
[2016-12-15] MEDS: ATORVASTATIN 10 MG TAB PO SCH (20:51)
[2016-12-15] MEDS: CHOLECALCIFEROL 1,000 UNIT TAB PO SCH (20:52)
[2016-12-15] MEDS: METOPROLOL SUCCINATE (ER) 100 MG TAB.ER.24H PO SCH (20:52)
[2016-12-15] MEDS ORDERED: LEVOFLOXACIN 750MG-D5W PMX 750 MG in DEXTROSE/WATER 1 150ML.BAG IVPB SCH (21:00)
[2016-12-16 08:01] LABS: Anisocytosis Slight; CH 30.6; CHCM 30.7; HCT 25.8 % (34.0-46.0); HDW 2.49; Hypochromasia Slight; MCH 30.9 pg (25.0-35.0); MCHC 30.9 g/dL (31.0-37.0); MCV 100.2 fL (80.0-100.0); Macrocytosis Slight; Mean Platelet Volume 7.2; RBC 2.57 m/uL (3.80-5.40); RDW 17.3 % (11.5-15.5); WBC 4.5 k/uL (3.8-10.6)
[2016-12-16 08:17] LABS: Calcium 7.4 mg/dL (8.4-10.2); Potassium 3.2 mmol/L (3.5-5.1)
[2016-12-16] MEDS ORDERED: SCOPOLAMINE 1.5MG/72HR PATCH TRANSDERM STA (09:41)
[2016-12-16] MEDS: PANTOPRAZOLE 40 MG TABLET PO SCH (09:47)
[2016-12-16] MEDS: ONDANSETRON 4 MG/2 ML VIAL IVP PRN (09:47)
[2016-12-16] MEDS: LINEZOLID 600 MG in DEXTROSE/WATER 1 300ML.BAG IVPB SCH ×2 (09:48→22:00)
[2016-12-16] MEDS: SODIUM CHLORIDE 0.9% 1,000 ML IV SCH ×2 (09:48→16:57)
[2016-12-16] MEDS ORDERED: POTASSIUM CHLORIDE ER 20 MEQ TAB.ER PO SCH (10:00)
--- NOTE | 2016-12-16 10:57 | P.PN ---
Subjective 76-year-old female was hospitalized in to to 11/25/2016 for acute blood loss anemia with hemoglobin of 5.0 with intractable nausea with no vomiting she had recent hemicolectomy at [facility] she was hospitalized had blood transfusion her hemoglobin was stabilized and ended up going back to [facility] on the [place] which she seen Dr. Quintanilla a regular basis. 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 She had 2 different occasions in October when she presented to [facility] complaining of nausea and vomiting along with no bowel movement for several day she ended up going for EGD on November 27 was negative and colonoscopy was scheduled as an outpatient hemoglobin was pain above 7 did not require any further transfusion and did well going back to [facility] [place] her anticoagulation was resumed was doing better with it. Patient presented to [facility] department [facility] in 12/14/2016 with change mental status worsening confusion dehydration significantly elevated creatinine BUN with stage III chronic kidney disease along with acute kidney injury possible ATN. Patient found to have UTI as well was started on IV antibiotics with Levaquin hydration and admitted to the hospital. Surprisingly continue complain of worsening abdominal pain along with worsening lower back pain and right sided hip pain with no recent injury. 12/16: Patient is continued on IV fluids at 100 mL per hour. Repeat BUN is 24 1.77. Patient's nausea is better but continues and scopolamine patch ordered. Patient has had very little urine output and Jewell catheter has been ordered. Objective - Vital Signs Vital signs: Vital Signs Temp 97.8 F 12/16/16 07:00 Pulse 70 12/16/16 07:00 Resp 20 12/16/16 07:00 BP 112/56 12/16/16 07:00 Pulse Ox 97 12/16/16 07:00 Intake & Output 12/15/16 12/16/16 12/16/16 18:59 06:59 18:59 Intake Total 1300 300 Output Total 400 400 Balance 900 -100 Intake: IV 1300 Linezolid 600 mg In 300 Dextrose/Water 1 300ml. bag @ 150 mls/hr IVPB Q12HR AZEEM Rx#:[id number] Sodium Chloride 0.9% 1, 1000 000 ml @ 100 mls/hr IV . Q10H ONE Rx#:[id number] Oral 300 Output: Urine 400 400 Straight 395 200 Other: Voiding Method Diaper Diaper # Voids 0 - Exam General appearance: no average body habitus, cooperative, no disheveled, mild distress, no morbidly obese, no no acute distress, no obese, no severe distress , thin - EENT Eyes: no abnormal pupil, no anicteric sclerae, no disc margins sharp, no edentulous, no EOMI, no PERRLA, no fundus normal, no photophobia, no dentition normal, no poor dentition, no ptosis, no scleral icterus, normal appearance ENT: no hard of hearing, no hearing grossly normal, no NA/AT, normal oropharynx , no other, no pharyngeal erythema, no thrush, no tonsillar exudates, no tonsillar swelling Ears: bilateral: normal, bulging - Neck Neck: no lymphadenopathy, normal ROM, no other, no rigidity, no stridor, no thyromegaly Carotids: bilateral: upstroke normal, upstroke delayed Thyroid: bilateral: normal size - Respiratory Respiratory: bilateral: diminished, dullness, rales, rhonchi, wheezing - Cardiovascular Rhythm: regular Heart sounds: normal: S1, S2 Abnormal Heart Sounds: systolic murmur, S3 Gallop - Gastrointestinal Scar tissue from recent surgery and the midline with no sign of infection but had large keloid and area of old hematoma on it. General gastrointestinal: no absent bowel sounds, decreased bowel sounds, distended, no hepatomegaly, no hyperactive bowel sounds, normal bowel sounds, no organomegaly, no rigid, scaphoid, soft, no splenomegaly, tenderness, no umbilical hernia, no ventral hernia - Integumentary Integumentary: no calor, cellulitis, no cyanotic, no decreased turgor, no flushed, no jaundiced, no normal, no normal turgor, pale, rash, no ulcer - Neurologic Neurologic: CNII-XII intact - Musculoskeletal Musculoskeletal: gait normal, generalized weakness, strength equal bilaterally - Psychiatric Psychiatric: A&O x's 3, no appropriate affect, no intact judgment & insight - Labs CBC & Chem 7: 12/16/16 07:33 12/16/16 07:33 Labs: Abnormal Lab Results - Last 24 Hours (Table) 12/16/16 12/16/16 Range/Units 07:33 07:33 RBC 2.57 L (3.80-5.40) m/uL Hgb 8.0 L (11.4-16.0) gm/dL Hct 25.8 L (34.0-46.0) % MCV 100.2 H (80.0-100.0) fL MCHC 30.9 L (31.0-37.0) g/dL RDW 17.3 H (11.5-15.5) % Potassium 3.2 L (3.5-5.1) mmol/L Chloride 112 H (98-107) mmol/L BUN 24 H (7-17) mg/dL Creatinine 1.77 H (0.52-1.04) mg/dL Calcium 7.4 L (8.4-10.2) mg/dL Microbiology - Last 24 Hours (Table) 12/15/16 13:15 Urine Culture - Preliminary Urine,Catheterized Assessment and Plan Plan: 1 metabolic encephalopathy secondary to infection, anemia, lower back pain, side effect medication along with UTI. Treat underlying disease. 2 sepsis with UTI: With patient's current condition patient will be on IV antibiotics continue hydration watch symptoms closely repeat UA and wait for culture, with the any unusual infections specially with the resistant bacteria in the past will have patient seen infectious disease. 3 acute kidney injury most likely ATN with chronic kidney disease: Continue hydration repeat BUN/creatinine daily for the next few days. For recurrent abdominal pain with no significant abnormalities on CAT scan. 4 right-sided hip pain with no clear evidence of trauma recently with x-ray showing osteoarthrosis 5 recurrent anemia with blood transfusion different occasion last few weeks hemoglobin has been stable at this point continue to watch for any further recurrent bleed. 6 chronic edema: Has been on diuretics doing well. 7 A. fib with RVR with history of paroxysmal atrial fibrillation: Patient has been on Eliquis 5 mg twice a day along with metoprolol 100 mg daily and amiodarone 200 mg a day pulse rates under control currently. 8 hyperlipidemia: Has been on Lipitor. 9 lower back pain with worsening symptom will continue patient on smaller dose of hydrocodone or tramadol along with mild muscle relaxer. 10 recent history of hemicolectomy with complication: Patient still been watch by surgery. No obstruction this time. CODE STATUS: Full code. Discharge plan: Return to [facility] Impression and plan of care have been directed as dictated by the signing physician. Mayi Lindsay nurse practitioner acting as scribe for signing physician. Time with Patient: Greater than 30
[2016-12-16] MEDS: POTASSIUM CHLORIDE ER 20 MEQ TAB.ER PO SCH (11:08)
[2016-12-16] MEDS: APIXABAN 2.5 MG TABLET PO SCH ×2 (11:08→22:00)
[2016-12-16] MEDS: AMIODARONE 200 MG TAB PO SCH (11:08)
[2016-12-16] MEDS: DRONABINOL 2.5 MG CAP PO SCH ×2 (11:08→22:00)
[2016-12-16] MEDS: POTASSIUM CHLORIDE 20 MEQ, LIDOCAINE 2% INJ 20 MG in SODIUM CHLORIDE 0.9% 100 ML IV SCH ×2 (12:42→15:14)
[2016-12-16] MEDS: SENNOSIDES-DOCUSATE SODIUM 1 EACH TAB PO SCH ×2 (13:59→22:00)
[2016-12-16] MEDS: FERROUS SULFATE 325 MG TAB PO SCH (13:59)
[2016-12-16] MEDS: CYANOCOBALAMIN 500 MCG TAB PO SCH (13:59)
--- NOTE | 2016-12-16 15:42 | PN ---
Patient is seen for followup for acute kidney injury. She was admitted to the hospital with a creatinine of about 3.5. Renal function has continued to improve. Patient is maintained on IV fluids. Her creatinine is down to 1.7. She had not been voiding and had a straight cath twice yesterday. On examination, blood pressure is 112/56, heart rate 70 per minute. She is afebrile. EXAMINATION OF THE HEART: S1 and S2. EXAMINATION OF THE LUNGS: Bilateral breath sounds are heard. Decreased breath sounds in bases. ABDOMEN: Soft, nontender. Examination of lower extremities shows no significant edema. Labs show sodium 142, potassium 3.2, serum creatinine down to 1.7. Hemoglobin 8.0 g/dL. ASSESSMENT: 1. Acute kidney injury, nonoliguric, mainly prerenal, currently improving with IV hydration. I have advised the nursing staff to try and encourage the patient to void, and as long as her renal function continues to improve we do not need to place Jewell catheter. 2. Recent urinary tract infection with enterococcus, currently maintained on linezolid. 3. Altered mentation on initial admission, currently improved. PLAN: Continue IV fluids. Continue to encourage increased oral intake. Will decrease IV fluids tomorrow.
[2016-12-16 19:41] LABS: Magnesium 1.7 mg/dL (1.6-2.3); Potassium 3.7 mmol/L (3.5-5.1)
--- NOTE | 2016-12-16 21:15 | P.PN ---
Subjective Patient now presents from [facility] to [facility] emergency center by EMS for dehydration and elevated creatinine. CAT scan of the brain showed cerebral atrophy with right-sided maxillary and ethmoid sinusitis and no change compared to prior. Chest x-ray shows no acute cardiopulmonary disease. On recent blood draw her BUN was 35 and creatinine 3.10 and repeat here is 39 and 3.50. Patient is complaining of pain all over especially in the back and the hips right more so than left. Apparently she has had falls at [facility]. Blood pressure was low with a heart rate of 47. Apparently patient has not been eating and drinking and had worsening confusion. Patient does complain of nausea without vomiting and complains of dizziness with movement. White count 6.7, hemoglobin 9.7. BUN 39 and creatinine 3.5. Urinalysis was turbid, blood trace, leukoesterase large, WBC 75, WBC clumps many, bacteria many, Hylan casts 631. Urine drug screen was positive for marijuana and patient is on Marinol. Patient was started on Levaquin [facility] Antibiotic was subsequently changed to Zyvox as her last urine culture done on November 24 was enterococcus gallinarum, multidrug resistant. Right hip x-ray was done that showed osteoarthrosis with no acute abnormality. CAT scan of the abdomen and pelvis without contrast has been done and report is pending. Patient has been seen by Dr. Penaloza for non-oliguric acute kidney injury. the nausea and retching of improved a bit today. Still not Objective - Vital Signs Vital signs: Vital Signs Temp 96.3 F L 12/16/16 15:00 Pulse 64 12/16/16 15:00 Resp 20 12/16/16 15:00 BP 98/47 12/16/16 15:00 Pulse Ox 98 12/16/16 15:00 Intake & Output 12/16/16 12/16/16 12/17/16 06:59 18:59 07:59 Intake Total 300 1300 Output Total 400 600 Balance -100 700 Intake: IV 500 Linezolid 600 mg In 300 Dextrose/Water 1 300ml. bag @ 150 mls/hr IVPB Q12HR AZEEM Rx#:[id number] Potassium Chloride 20 meq 200 Lidocaine 2% Inj 20 mg In Sodium Chloride 0.9% 100 ml @ 55.5 mls/hr IV Q2H AZEEM Rx#:[id number] Intake, IV Titration 800 Amount Sodium Chloride 0.9% 1, 800 000 ml @ 100 mls/hr IV . Q10H AZEEM Rx#:[id number] Oral 300 Output: Urine 400 600 Straight 200 Other: Voiding Method Diaper Indwelling Catheter # Voids 0 - Exam en: This is a 76-year-old female. HEENT: Head is atraumatic, normocephalic. Pupils equal, round. Sclerae is anicteric. NECK: Supple. No JVD. No lymphadenopathy. No thyromegaly. LUNGS: Clear to auscultation. No wheezes or rhonchi. No intercostal retractions. HEART: Regular rate and rhythm. No murmur. ABDOMEN: Soft. Bowel sounds are present. No masses. Generalized tenderness. EXTREMITIES: Positive bilateral pedal edema. No calf tenderness. NEUROLOGICAL: Patient is awake, alert and oriented x2 - Labs CBC & Chem 7: 12/16/16 07:33 12/16/16 19:19 Labs: Abnormal Lab Results - Last 24 Hours (Table) 12/16/16 12/16/16 Range/Units 07:33 07:33 RBC 2.57 L (3.80-5.40) m/uL Hgb 8.0 L (11.4-16.0) gm/dL Hct 25.8 L (34.0-46.0) % MCV 100.2 H (80.0-100.0) fL MCHC 30.9 L (31.0-37.0) g/dL RDW 17.3 H (11.5-15.5) % Potassium 3.2 L (3.5-5.1) mmol/L Chloride 112 H (98-107) mmol/L BUN 24 H (7-17) mg/dL Creatinine 1.77 H (0.52-1.04) mg/dL Calcium 7.4 L (8.4-10.2) mg/dL Microbiology - Last 24 Hours (Table) 12/15/16 13:15 Urine Culture - Final Urine,Catheterized Laboratory Results WBC 4.5 k/uL (3.8-10.6) 12/16/16 07:33 RBC 2.57 m/uL (3.80-5.40) L 12/16/16 07:33 Hgb 8.0 gm/dL (11.4-16.0) L 12/16/16 07:33 Hct 25.8 % (34.0-46.0) L 12/16/16 07:33 MCV 100.2 fL (80.0-100.0) H 12/16/16 07:33 MCH 30.9 pg (25.0-35.0) 12/16/16 07:33 MCHC 30.9 g/dL (31.0-37.0) L 12/16/16 07:33 RDW 17.3 % (11.5-15.5) H 12/16/16 07:33 Plt Count 172 k/uL (150-450) 12/16/16 07:33 Neutrophils % 65 % 12/14/16 20:54 Lymphocytes % 28 % 12/14/16 20:54 Monocytes % 5 % 12/14/16 20:54 Eosinophils % 1 % 12/14/16 20:54 Basophils % 0 % 12/14/16 20:54 Neutrophils # 4.3 k/uL (1.3-7.7) 12/14/16 20:54 Lymphocytes # 1.9 k/uL (1.0-4.8) 12/14/16 20:54 Monocytes # 0.4 k/uL (0-1.0) 12/14/16 20:54 Eosinophils # 0.1 k/uL (0-0.7) 12/14/16 20:54 Basophils # 0.0 k/uL (0-0.2) 12/14/16 20:54 Hypochromasia Slight 12/16/16 07:33 Anisocytosis Slight 12/16/16 07:33 Macrocytosis Slight 12/16/16 07:33 PT 15.3 sec (9.0-12.0) H 12/14/16 20:54 INR 1.6 (<1.1) 12/14/16 20:54 APTT 28.0 sec (22.0-30.0) 12/14/16 20:54 Sodium 142 mmol/L (137-145) 12/16/16 07:33 Potassium 3.7 mmol/L (3.5-5.1) 12/16/16 19:19 Chloride 112 mmol/L (98-107) H 12/16/16 07:33 Carbon Dioxide 22 mmol/L (22-30) 12/16/16 07:33 Anion Gap 8 mmol/L 12/16/16 07:33 BUN 24 mg/dL (7-17) H 12/16/16 07:33 Creatinine 1.77 mg/dL (0.52-1.04) H 12/16/16 07:33 Est GFR (MDRD) Af Amer 34 (>60 ml/min/1.73 sqM) 12/16/16 07:33 Est GFR (MDRD) Non-Af 28 (>60 ml/min/1.73 sqM) 12/16/16 07:33 Glucose 82 mg/dL (74-99) 12/16/16 07:33 POC Glucose (mg/dL) 117 mg/dL (75-99) H 12/14/16 20:56 POC Glu Nondestructive Tester ID Fifi Garibay 12/14/16 20:56 Plasma Lactic Acid Deion 1.9 mmol/L (0.7-2.0) 12/14/16 20:54 Calcium 7.4 mg/dL (8.4-10.2) L 12/16/16 07:33 Magnesium 1.7 mg/dL (1.6-2.3) 12/16/16 19:19 Iron 33 ug/dL (37-170) L 12/14/16 20:54 TIBC 155 ug/dL (265-497) L 12/14/16 20:54 % Saturation 21.3 % (20-50) 12/14/16 20:54 Ferritin 298 ng/mL (11-264) H 12/14/16 20:54 Total Bilirubin 1.1 mg/dL (0.2-1.3) 12/14/16 20:54 AST 30 U/L (14-36) 12/14/16 20:54 ALT 42 U/L (9-52) 12/14/16 20:54 Alkaline Phosphatase 82 U/L (38-126) 12/14/16 20:54 Total Creatine Kinase 76 U/L (30-135) 12/14/16 20:54 CK-MB (CK-2) 0.6 ng/mL (0.0-2.4) 12/14/16 20:54 CK-MB (CK-2) Rel Index 0.8 12/14/16 20:54 Troponin I 0.022 ng/mL (0.000-0.034) 12/14/16 20:54 Total Protein 5.8 g/dL (6.3-8.2) L 12/14/16 20:54 Albumin 2.7 g/dL (3.5-5.0) L 12/14/16 20:54 Urine Color Yellow 12/14/16 20:52 Urine Appearance Turbid (Clear) H 12/14/16 20:52 Urine pH 5.0 (5.0-8.0) 12/14/16 20:52 Ur Specific [place] 1.014 (1.001-1.035) 12/14/16 20:52 Urine Protein 1+ (Negative) H 12/14/16 20:52 Urine Glucose (UA) Negative (Negative) 12/14/16 20:52 Urine Ketones Negative (Negative) 12/14/16 20:52 Urine Blood Trace (Negative) H 12/14/16 20:52 Urine Nitrate Negative (Negative) 12/14/16 20:52 Urine Bilirubin 1+ (Negative) H 12/14/16 20:52 Urine Urobilinogen 2.0 mg/dL (<2.0) 12/14/16 20:52 Ur Leukocyte Esterase Large (Negative) H 12/14/16 20:52 Urine WBC 75 /hpf (0-5) H 12/14/16 20:52 Urine WBC Clumps Many /hpf (None) H 12/14/16 20:52 Ur Squamous Epith Cells 2 /hpf (0-4) 12/14/16 20:52 Urine Bacteria Many /hpf (None) H 12/14/16 20:52 Hyaline Casts 631 /lpf (0-2) H 12/14/16 20:52 Urine Opiates Screen Not Detected (NotDetected) 12/14/16 20:52 Ur Oxycodone Screen Not Detected (NotDetected) 12/14/16 20:52 Urine Methadone Screen Not Detected (NotDetected) 12/14/16 20:52 Ur Propoxyphene Screen Not Detected (NotDetected) 12/14/16 20:52 Ur Barbiturates Screen Not Detected (NotDetected) 12/14/16 20:52 U Tricyclic Antidepress Not Detected (NotDetected) 12/14/16 20:52 Ur Phencyclidine Scrn Not Detected (NotDetected) 12/14/16 20:52 Ur Amphetamines Screen Not Detected (NotDetected) 12/14/16 20:52 U Methamphetamines Scrn Not Detected (NotDetected) 12/14/16 20:52 U Benzodiazepines Scrn Not Detected (NotDetected) 12/14/16 20:52 Urine Cocaine Screen Not Detected (NotDetected) 12/14/16 20:52 U Marijuana (THC) Screen Detected (NotDetected) H 12/14/16 20:52 Physical Assessment - Skin (past 72 hours) Within Normal Limits No Within Normal Limits No Within Normal Limits No Within Normal Limits No Skin Condition [Bilateral Foot dry, flaky ] Skin Condition [Right Arm] 2 open skin tears on forearm and one on wrist Skin Condition [Right Arm] 2 open skin tears on forearm and one on wrist Skin Condition [Right Arm] 2 open skin tears on forearm and one on wrist Skin Condition [Right Arm] 2 open skin tears on forearm and one on wrist Skin Condition [Right Arm] 2 open skin tears on forearm and one on wrist Skin Condition [Right Buttock] small open ulcer Skin Condition [Right Buttock] small open ulcer Skin Condition [Right Buttock] small open ulcer Skin Condition [Right Buttock] small open ulcer Skin Condition [Right Buttock] small open pulcer Skin Condition [Abdomen] Incision (Closed) Skin Condition [Abdomen] Incision (Closed) Skin Condition [Abdomen] Incision (Closed) Skin Condition [Abdomen] Incision (Closed) Skin Condition [Abdomen] Incision (Closed) Skin Temperature [Right Arm] Warm Skin Temperature [Right Arm] Warm Skin Temperature [Right Arm] Warm Skin Temperature [Right Arm] Warm Skin Temperature [Right Arm] Warm Skin Temperature [Right Warm Buttock] Skin Temperature [Right Warm Buttock] Skin Temperature [Right Warm Buttock] Skin Temperature [Right Warm Buttock] Skin Temperature [Right Warm Buttock] Skin Temperature [Abdomen] Warm Skin Temperature [Abdomen] Warm Skin Temperature [Abdomen] Warm Skin Temperature [Abdomen] Warm Skin Temperature [Abdomen] Warm Skin Moisture [Right Arm] Moist Skin Moisture [Right Arm] Moist Skin Moisture [Right Arm] Moist Skin Moisture [Right Arm] Moist Skin Moisture [Right Arm] Moist Skin Moisture [Right Buttock] Moist Skin Moisture [Right Buttock] Moist Skin Moisture [Right Buttock] Moist Skin Moisture [Right Buttock] Moist Skin Moisture [Right Buttock] Moist Skin Moisture [Abdomen] Dry Skin Moisture [Abdomen] Dry Skin Moisture [Abdomen] Dry Skin Moisture [Abdomen] Dry Skin Moisture [Abdomen] Dry Skin Texture [Right Buttock] Intact Skin Texture [Right Buttock] Intact Skin Texture [Right Buttock] Intact Skin Texture [Right Buttock] Intact Skin Texture [Right Buttock] Intact Skin Texture [Abdomen] Intact,Rough,Thick Skin Texture [Abdomen] Intact,Rough,Thick Skin Texture [Abdomen] Intact,Rough,Thick Skin Texture [Abdomen] Intact,Rough,Thick Skin Texture [Abdomen] Intact,Thick Skin Color [Right Arm] Erythema Skin Color [Right Arm] Erythema Skin Color [Right Arm] Erythema Skin Color [Right Arm] Erythema Skin Color [Right Arm] Erythema Skin Color [Right Buttock] Erythema Skin Color [Right Buttock] Erythema Skin Color [Right Buttock] Erythema Skin Color [Right Buttock] Erythema Skin Color [Right Buttock] Erythema Physical Assessment - Comment Integumentary Assessment Old scabbed incision over abdomen. 2 open skin Comment tears on right forearm and one on wrist, nonadherents intact; Mutiple brusies over body. Buttocks erythema with small open ulcer on right buttocks. Photos taken by previous nurse. Integumentary Assessment Old scabbed incision over abdomen. 2 open skin Comment tears on right forearm and one on wrist, nonadherents intact; Mutiple brusies over body. Buttocks erythema with small open ulcer on right buttocks. Photos taken by previous nurse. Integumentary Assessment Old scabbed incision over abdomen. 2 open skin Comment tears on right forearm and one on wrist, nonadherents intact; Mutiple brusies over body. Buttocks erythema with small open ulcer on right buttocks. Photos taken by previous nurse. Integumentary Assessment Old scabbed incision over abdomen. 2 open skin Comment tears on right forearm and one on wrist, nonadherents applied. Mutiple brusies over body. Buttocks erythema with small open ulcer on right buttocks. Photos taken. Assessment and Plan (1) Acute renal failure Narrative/Plan: 76-year-old woman with multiple medical troubles presents to Hospital acutely ill. His acute renal failure showing some improvement. Urinary infection. Wheezing urine infection with vancomycin-resistant enterococci. Currently receiving Zyvox and being monitored. The significant somewhat better today with hydration and control of her nausea. Really has much less nausea and emesis today. She over still quite miserable. Receiving anxiolytics and some pain control. Laboratories being followed. His nutritional supplementation when able. Status: Acute (2) Altered mental status Status: Acute (3) Urinary tract infection Status: Acute
[2016-12-16] MEDS: MELATONIN 5 MG TABLET PO SCH (22:00)
[2016-12-16] MEDS: CHOLECALCIFEROL 1,000 UNIT TAB PO SCH (22:00)
[2016-12-16] MEDS: ATORVASTATIN 10 MG TAB PO SCH (22:00)
[2016-12-16] MEDS: METOPROLOL SUCCINATE (ER) 100 MG TAB.ER.24H PO SCH (22:00)
[2016-12-17] MEDS: SODIUM CHLORIDE 0.9% 1,000 ML IV SCH ×2 (05:38→15:40)
[2016-12-17] MEDS: ONDANSETRON 4 MG/2 ML VIAL IVP PRN ×2 (07:58→21:17)
[2016-12-17] MEDS: DRONABINOL 2.5 MG CAP PO SCH ×2 (08:29→21:09)
[2016-12-17] MEDS: SENNOSIDES-DOCUSATE SODIUM 1 EACH TAB PO SCH ×2 (08:29→21:09)
[2016-12-17] MEDS: POTASSIUM CHLORIDE ER 20 MEQ TAB.ER PO SCH (08:29)
[2016-12-17] MEDS: APIXABAN 2.5 MG TABLET PO SCH ×2 (08:29→21:03)
[2016-12-17] MEDS: PANTOPRAZOLE 40 MG TABLET PO SCH (08:29)
[2016-12-17] MEDS: LINEZOLID 600 MG in DEXTROSE/WATER 1 300ML.BAG IVPB SCH ×2 (08:30→21:04)
[2016-12-17 09:11] LABS: Anisocytosis Slight; CH 30.7; CHCM 30.6; HCT 26.3 % (34.0-46.0); HDW 2.62; HGB 8.2 gm/dL (11.4-16.0); Hypochromasia Moderate; MCH 31.4 pg (25.0-35.0); MCV 101.1 fL (80.0-100.0); Macrocytosis Moderate; Mean Platelet Volume 7.9; RDW 17.5 % (11.5-15.5); WBC 3.3 k/uL (3.8-10.6)
[2016-12-17 09:21] LABS: Calcium 7.6 mg/dL (8.4-10.2); Potassium 3.5 mmol/L (3.5-5.1)
[2016-12-17] MEDS: AMIODARONE 200 MG TAB PO SCH (09:32)
[2016-12-17] MEDS: METOPROLOL SUCCINATE (ER) 50 MG TAB.ER.24H PO SCH (09:36)
--- NOTE | 2016-12-17 10:28 | P.PN ---
Subjective 76-year-old female was hospitalized in to to 11/25/2016 for acute blood loss anemia with hemoglobin of 5.0 with intractable nausea with no vomiting she had recent hemicolectomy at [facility] she was hospitalized had blood transfusion her hemoglobin was stabilized and ended up going back to [facility] [place] which she seen Dr. Quintanilla a regular basis. Earlier last year in September patient was transferred to [facility] for severe abdominal pain and severe anemia and end up going for exploratory laparotomy with SVR for ischemic bowel on 09/29/2016 and return to the OR for closure Handswen anastomosis 2 at [facility] on 09/30/2016. She had 2 different occasions in October when she presented to [facility] complaining of nausea and vomiting along with no bowel movement for several day she ended up going for EGD on November 27 was negative and colonoscopy was scheduled as an outpatient hemoglobin was pain above 7 did not require any further transfusion and did well going back to [facility] [place] her anticoagulation was resumed was doing better with it. [facility] in 12/14/2016 with change mental status worsening confusion dehydration significantly elevated creatinine BUN with stage III chronic kidney disease along with acute kidney injury possible ATN. Patient found to have UTI as well was started on IV antibiotics with Levaquin hydration and admitted to the hospital. Surprisingly continue complain of worsening abdominal pain along with worsening lower back pain and right sided hip pain with no recent injury. 12/16: Patient is continued on IV fluids at 100 mL per hour. Repeat BUN is 24 1.77. Patient's nausea is better but continues and scopolamine patch ordered. Patient has had very little urine output and Jewell catheter has been ordered. 12/17: Patient status appears to be much improved but she does continue to have concerns about nausea. Consult is in place with GI. Nephrology is following for acute kidney injury and continued on IV fluids at 100 mL per hour. She is continued on Zyvox for VRE urinary tract infection. [facility] or Sunday. Objective - Vital Signs Vital signs: Vital Signs Temp 97.6 F 12/17/16 07:00 Pulse 68 12/17/16 07:00 Resp 20 12/17/16 07:00 BP 85/47 12/17/16 07:00 Pulse Ox 97 12/17/16 07:00 Intake & Output 12/16/16 12/17/16 12/17/16 17:59 06:59 18:59 Intake Total Output Total Balance Intake: IV Linezolid 600 mg In Dextrose/Water 1 300ml. bag @ 150 mls/hr IVPB Q12HR [facility] Rx#:[id number] Potassium Chloride 20 meq Lidocaine 2% Inj 20 mg In Sodium Chloride 0.9% 100 ml @ 55.5 mls/hr IV Q2H A[facility] Rx#:[id number] Intake, IV Titration Amount Sodium Chloride 0.9% 1, 000 ml @ 100 mls/hr IV . Q10H A[facility] Rx#:[id number] Oral Output: Urine Straight Other: Voiding Method Indwelling Catheter # Voids - Exam General appearance: no average body habitus, cooperative, no disheveled, mild distress, no morbidly obese, no no acute distress, no obese, no severe distress , thin - EENT Eyes: no abnormal pupil, no anicteric sclerae, no disc margins sharp, no edentulous, no EOMI, no PERRLA, no fundus normal, no photophobia, no dentition normal, no poor dentition, no ptosis, no scleral icterus, normal appearance ENT: no hard of hearing, no hearing grossly normal, no NA/AT, normal oropharynx , no other, no pharyngeal erythema, no thrush, no tonsillar exudates, no tonsillar swelling Ears: bilateral: normal, bulging - Neck Neck: no lymphadenopathy, normal ROM, no other, no rigidity, no stridor, no thyromegaly Carotids: bilateral: upstroke normal, upstroke delayed Thyroid: bilateral: normal size - Respiratory Respiratory: bilateral: diminished, dullness, rales, rhonchi, wheezing - Cardiovascular Rhythm: regular Heart sounds: normal: S1, S2 Abnormal Heart Sounds: systolic murmur, S3 Gallop - Gastrointestinal Scar tissue from recent surgery and the midline with no sign of infection but had large keloid and area of old hematoma on it. General gastrointestinal: no absent bowel sounds, decreased bowel sounds, distended, no hepatomegaly, no hyperactive bowel sounds, normal bowel sounds, no organomegaly, no rigid, scaphoid, soft, no splenomegaly, tenderness, no umbilical hernia, no ventral hernia - Integumentary Integumentary: no calor, cellulitis, no cyanotic, no decreased turgor, no flushed, no jaundiced, no normal, no normal turgor, pale, rash, no ulcer - Neurologic Neurologic: CNII-XII intact - Musculoskeletal Musculoskeletal: gait normal, generalized weakness, strength equal bilaterally - Psychiatric Psychiatric: A&O x's 3, no appropriate affect, no intact judgment & insight - Labs CBC & Chem 7: 12/17/16 08:40 12/17/16 08:40 Labs: Abnormal Lab Results - Last 24 Hours (Table) 12/17/16 12/17/16 Range/Units 08:40 08:40 WBC 3.3 L (3.8-10.6) k/uL RBC 2.60 L (3.80-5.40) m/uL Hgb 8.2 L (11.4-16.0) gm/dL Hct 26.3 L (34.0-46.0) % MCV 101.1 H (80.0-100.0) fL RDW 17.5 H (11.5-15.5) % Chloride 114 H (98-107) mmol/L Carbon Dioxide 21 L (22-30) mmol/L Creatinine 1.24 H (0.52-1.04) mg/dL Calcium 7.6 L (8.4-10.2) mg/dL Microbiology - Last 24 Hours (Table) 12/15/16 13:15 Urine Culture - Final Urine,Catheterized Assessment and Plan Plan: 1 metabolic encephalopathy secondary to infection, anemia, lower back pain, side effect medication along with UTI. Treat underlying disease. 2 sepsis with VRE UTI: With patient's current condition patient will be on IV antibiotics continue hydration watch symptoms closely repeat UA and wait for culture, with the any unusual infections specially with the resistant bacteria in the past will have patient seen infectious disease. 3 acute kidney injury most likely ATN with chronic kidney disease: Continue hydration repeat BUN/creatinine daily for the next few days. For recurrent abdominal pain with no significant abnormalities on CAT scan. 4 right-sided hip pain with no clear evidence of trauma recently with x-ray showing osteoarthrosis 5 recurrent anemia with blood transfusion different occasion last few weeks hemoglobin has been stable at this point continue to watch for any further recurrent bleed. 6 chronic edema: Has been on diuretics doing well. 7 A. fib with RVR with history of paroxysmal atrial fibrillation: Patient has been on Eliquis 5 mg twice a day along with metoprolol 100 mg daily and amiodarone 200 mg a day pulse rates under control currently. 8 hyperlipidemia: Has been on Lipitor. 9 lower back pain with worsening symptom will continue patient on smaller dose of hydrocodone or tramadol along with mild muscle relaxer. 10 recent history of hemicolectomy with complication: Patient still been watch by surgery. No obstruction this time. CODE STATUS: Full code. Discharge plan: Return to [facility] Impression and plan of care have been directed as dictated by the signing physician. Mayi Lindsay nurse practitioner acting as scribe for signing physician. Time with Patient: Greater than 30
[2016-12-17] MEDS: CYANOCOBALAMIN 500 MCG TAB PO SCH (11:03)
[2016-12-17] MEDS: FERROUS SULFATE 325 MG TAB PO SCH (11:03)
--- NOTE | 2016-12-17 19:51 | P.CONS ---
History of Present Illness - Reason for Consult Consult date: 12/17/16 - History of Present Illness The patient is a 76-year-old female who presented with worsening mental status and confusion as well as dehydration and significant elevation in her BUN and creatinine. The patient was found to have a urinary tract infection and was started on IV antibiotics. She had chronic stage III kidney disease and had acute kidney injury as well and has been followed closely with nephrology. We are asked to see her in regards to persistent nausea. The patient has history of hemicolectomy which she had hemicolectomy at [facility] the last week in September 2016. 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 The patient was hospitalized last month for anemia and intractable nausea with no vomiting and she had been hospitalized for those complaints couple other times since her surgery in September and in November she had an upper endoscopy that was negative. At this time, the patient reports that her nausea is improved but not gone. The nurse stated that the patient gets nauseated when she sits up from the supine position. The patient denied vertigo or ringing in her years. She is having some visual field issues. Review of Systems Constitutional: Denies fever, chills, sweats, weight gain, or loss. HEENT: Negative for migraines, blurred vision or loss, earaches, drainage, tinnitus, oral mucosal lesions, dysphagia, or odynophagia. CARDIAC: Atrial fibrillation. Cigarette dependency. Hyperlipidemia. Hypertension. Denies palpitations. RESPIRATORY: Asthma. 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 shortness of breath see HPI, denies hemoptysis, cough, or sputum production. GI: See HPI for pertinent findings. : Negative for hematuria, urgency, frequency, polyuria, or dysuria. 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 MUSCULOSKELETAL: Negative for muscle aches, swelling, arthritis, and arthralgias. NEUROLOGIC: CVA-TIA.. ENDOCRINE: Negative for thyroid problems. SKIN: Melanoma 2. itching. PSYCHIATRIC: Negative history for depression and anxiety Past Medical History Past Medical History: Cancer, GERD/Reflux, Hyperlipidemia, Hypertension Additional Past Medical History / Comment(s): Breast CA status post bilateral mastectomy and implant placement September 2016, ischemic bowel status post exploratory laparotomy History of Any Multi-Drug Resistant Organisms: None Reported Past Surgical History: Breast Surgery, Orthopedic Surgery Additional Past Surgical History / Comment(s): LEFT SHOULDER. LEFT FOOT. Bilateral mastectomy in september of 2016, ex-lap with SBR for ischmemic bowl on 09/29/16 Past Anesthesia/Blood Transfusion Reactions: Motion Sickness, Postoperative Nausea & Vomiting (PONV) Additional Past Anesthesia/Blood Transfusion Reaction / Comm: PATIENT STATES HER TEETH IMPLANTS WERE DISLODGED DURING INTUBATION AND SHE SWALLOWED A TOOTH. Past Psychological History: No Psychological Hx Reported Smoking Status: Former smoker Past Alcohol Use History: None Reported Additional Past Alcohol Use History / Comment(s): Quit in 1984, smoked less than 1/2 PPD for 25 yrs. Past Drug Use History: None Reported - Past Family History Mother Family Medical History: No Reported History Medications and Allergies Home Medications Medication Instructions Recorded Confirmed Type Atorvastatin [Lipitor] 10 mg PO HS@209907/31/16 12/14/16 History Metoprolol Succinate [Toprol XL] 100 mg PO DAILY@2100 07/31/16 12/14/16 History Omeprazole 20 mg PO DAILY 07/31/16 12/14/16 History Amiodarone [Cordarone] 200 mg PO DAILY 11/24/16 12/14/16 History Apixaban [Eliquis] 5 mg PO BID 11/24/16 12/14/16 History Ferrous Sulfate [Feosol] 325 mg PO DAILY 11/24/16 12/14/16 History Sennosides-Docusate Sodium 1 tab PO BID 11/24/16 12/14/16 History [Senokot-S] Acetaminophen Tab [Tylenol Tab] 650 mg PO Q4H PRN 12/14/16 12/14/16 History Cholecalciferol [Vitamin D3] 2,000 unit PO HS 12/14/16 12/14/16 History Cyanocobalamin [Vitamin B-12] 500 mcg PO DAILY 12/14/16 12/14/16 History Darbepoetin Matty [Aranesp] 40 mcg SQ Q30D 12/14/16 12/15/16 History Dronabinol [Marinol] 5 mg PO BID 12/14/16 12/14/16 History Furosemide [Lasix] 40 mg PO MOWEFR 12/14/16 12/14/16 History Lactose-Reduced Food [Ensure Plus] 1 can PO TID BETWEEN MEALS 12/14/16 12/14/16 History Melatonin 6 mg PO HS 12/14/16 12/14/16 History Potassium Chloride [Klor-Con] 20 meq PO DAILY 12/14/16 12/14/16 History Allergies Allergy/AdvReac Type Severity Reaction Status Date / Time No Known Allergies Allergy Verified 12/14/16 23:06 Physical Exam Vitals: Vital Signs Temp Pulse Resp BP Pulse Ox 12/17/16 15:00 96.5 F L 64 16 114/70 91 L 12/17/16 07:00 97.6 F 68 20 85/47 97 12/16/16 23:35 97 F L 65 20 104/44 98 12/16/16 21:57 61 100/48 Intake and Output 12/17/16 12/17/16 12/17/16 06:59 14:59 22:59 Intake Total Output Total 350 Balance -350 Intake: Oral Output: Urine 350 Straight 350 Other: Voiding Method Indwelling Catheter Indwelling Catheter # Voids 1 General: Appears stated age, very pleasant in no acute distress Head and neck: Normocephalic and atraumatic. Conjunctivae pink and sclerae not icteric, no masses in the neck or tracheal shifts. No adenopathy or thyromegaly Lungs: Clear to auscultation with no dullness to percussion Heart: Regular, no abnormal sounds, murmurs, gallops or friction rubs Abdomen: Soft, no masses or organomegalies. Bowel sounds present Extremities: No clubbing, cyanosis or edema Neurologic: Alert and oriented 3. Cranial nerves grossly intact. No gross sensory or motor abnormalities Results CBC & Chem 7: 12/17/16 08:40 12/17/16 08:40 Labs: Abnormal Lab Results - Last 24 Hours (Table) 12/17/16 12/17/16 Range/Units 08:40 08:40 WBC 3.3 L (3.8-10.6) k/uL RBC 2.60 L (3.80-5.40) m/uL Hgb 8.2 L (11.4-16.0) gm/dL Hct 26.3 L (34.0-46.0) % MCV 101.1 H (80.0-100.0) fL RDW 17.5 H (11.5-15.5) % Chloride 114 H (98-107) mmol/L Carbon Dioxide 21 L (22-30) mmol/L Creatinine 1.24 H (0.52-1.04) mg/dL Calcium 7.6 L (8.4-10.2) mg/dL Microbiology - Last 24 Hours (Table) 12/15/16 13:15 Urine Culture - Final Urine,Catheterized Assessment and Plan Plan: This 76-year-old female with urinary tract infection and dehydration and likely sepsis, to account for her mental changes on admission, continues to have nausea which appears to be improving with symptomatic treatment and treatment of her sepsis. The patient had an upper endoscopy last month which was normal. The possibility of a central etiology of her nausea should be kept in mind especially with her positional symptoms and visual craven issues. Patient thinks that she is improving and she would like to wait before scheduling any additional testing at this time. I will discuss with you and follow with you with interest.
--- NOTE | 2016-12-17 20:01 | PN ---
Patient is seen for follow-up for acute kidney injury. She is currently lying in bed, comfortable, not in any acute distress. Her renal function has continued to improve her serum creatinine down to 1.2 from 3.5 mg/dL. On examination today the patient is comfortable. Blood pressure is 114/70, heart rate 64 per minute. She is afebrile. Examination of the heart S1 and S2. Examination of the lungs: Bilateral breath sounds are heard. ABDOMEN: Soft, nontender. Examination of lower extremities shows no significant edema. Labs show sodium 142, potassium 3.5. Hemoglobin 8.2 g/dL. ASSESSMENT: 1. Acute kidney injury, nonoliguric, currently improving significantly, mainly prerenal. Decrease IV fluids. Patient is advised to increase oral intake. 2. Recent urinary tract infection with enterococcus, maintained on Zyvox. 3. Altered mentation on admission, currently improved. PLAN: Continue IV fluids. Decrease rate. Encourage increased oral intake. Repeat labs in a.m. Possible discharge by tomorrow.
--- NOTE | 2016-12-17 20:44 | P.PN ---
Subjective Patient now presents from [facility] to [facility] emergency center by EMS for dehydration and elevated creatinine. CAT scan of the brain showed cerebral atrophy with right-sided maxillary and ethmoid sinusitis and no change compared to prior. Chest x-ray shows no acute cardiopulmonary disease. On recent blood draw her BUN was 35 and creatinine 3.10 and repeat here is 39 and 3.50. Patient is complaining of pain all over especially in the back and the hips right more so than left. Apparently she has had falls at [facility]. Blood pressure was low with a heart rate of 47. Apparently patient has not been eating and drinking and had worsening confusion. Patient does complain of nausea without vomiting and complains of dizziness with movement. White count 6.7, hemoglobin 9.7. BUN 39 and creatinine 3.5. Urinalysis was turbid, blood trace, leukoesterase large, WBC 75, WBC clumps many, bacteria many. Urine drug screen was positive for marijuana and patient is on Marinol. Patient was started on Levaquin and admitted to the [facility] floor. Antibiotic was subsequently changed to Zyvox as her last urine culture done on November 24 was enterococcus gallinarum, multidrug resistant. Right hip x-ray was done that showed osteoarthrosis with no acute abnormality. CAT scan of the abdomen and pelvis without contrast has been done and report is pending. Patient has been seen by Dr. Penaloza for non-oliguric acute kidney injury. the nausea and retching of improved a bit today. Still not eating. Patient's daughter is present today. Relates that the mother's been ill since September with similar symptoms. Objective - Vital Signs Vital signs: Vital Signs Temp 96.5 F L 12/17/16 15:00 Pulse 64 12/17/16 15:00 Resp 16 12/17/16 15:00 BP 114/70 12/17/16 15:00 Pulse Ox 91 L 12/17/16 15:00 Intake & Output 12/17/16 12/17/16 12/18/16 06:59 18:59 06:59 Intake Total Output Total 350 Balance -350 Intake: Oral Output: Urine 350 Straight 350 Other: Voiding Method Indwelling Catheter # Voids 1 - Exam en: This is a 76-year-old female. HEENT: Head is atraumatic, normocephalic. Pupils equal, round. Sclerae is anicteric. NECK: Supple. No JVD. No lymphadenopathy. No thyromegaly. LUNGS: Clear to auscultation. No wheezes or rhonchi. No intercostal retractions. HEART: Regular rate and rhythm. No murmur. ABDOMEN: Soft. Bowel sounds are present. No masses. Generalized tenderness. EXTREMITIES: Positive bilateral pedal edema. No calf tenderness. NEUROLOGICAL: Patient is awake, alert and oriented x2the most interactive That she has been - Labs CBC & Chem 7: 12/17/16 08:40 12/17/16 08:40 Labs: Abnormal Lab Results - Last 24 Hours (Table) 12/17/16 12/17/16 Range/Units 08:40 08:40 WBC 3.3 L (3.8-10.6) k/uL RBC 2.60 L (3.80-5.40) m/uL Hgb 8.2 L (11.4-16.0) gm/dL Hct 26.3 L (34.0-46.0) % MCV 101.1 H (80.0-100.0) fL RDW 17.5 H (11.5-15.5) % Chloride 114 H (98-107) mmol/L Carbon Dioxide 21 L (22-30) mmol/L Creatinine 1.24 H (0.52-1.04) mg/dL Calcium 7.6 L (8.4-10.2) mg/dL Microbiology - Last 24 Hours (Table) 12/15/16 13:15 Urine Culture - Final Urine,Catheterized Laboratory Results WBC 3.3 k/uL (3.8-10.6) L 12/17/16 08:40 RBC 2.60 m/uL (3.80-5.40) L 12/17/16 08:40 Hgb 8.2 gm/dL (11.4-16.0) L 12/17/16 08:40 Hct 26.3 % (34.0-46.0) L 12/17/16 08:40 MCV 101.1 fL (80.0-100.0) H 12/17/16 08:40 MCH 31.4 pg (25.0-35.0) 12/17/16 08:40 MCHC 31.0 g/dL (31.0-37.0) 12/17/16 08:40 RDW 17.5 % (11.5-15.5) H 12/17/16 08:40 Plt Count 157 k/uL (150-450) 12/17/16 08:40 Neutrophils % 65 % 12/14/16 20:54 Lymphocytes % 28 % 12/14/16 20:54 Monocytes % 5 % 12/14/16 20:54 Eosinophils % 1 % 12/14/16 20:54 Basophils % 0 % 12/14/16 20:54 Neutrophils # 4.3 k/uL (1.3-7.7) 12/14/16 20:54 Lymphocytes # 1.9 k/uL (1.0-4.8) 12/14/16 20:54 Monocytes # 0.4 k/uL (0-1.0) 12/14/16 20:54 Eosinophils # 0.1 k/uL (0-0.7) 12/14/16 20:54 Basophils # 0.0 k/uL (0-0.2) 12/14/16 20:54 Hypochromasia Moderate 12/17/16 08:40 Anisocytosis Slight 12/17/16 08:40 Macrocytosis Moderate 12/17/16 08:40 PT 15.3 sec (9.0-12.0) H 12/14/16 20:54 INR 1.6 (<1.1) 12/14/16 20:54 APTT 28.0 sec (22.0-30.0) 12/14/16 20:54 Sodium 142 mmol/L (137-145) 12/17/16 08:40 Potassium 3.5 mmol/L (3.5-5.1) 12/17/16 08:40 Chloride 114 mmol/L (98-107) H 12/17/16 08:40 Carbon Dioxide 21 mmol/L (22-30) L 12/17/16 08:40 Anion Gap 7 mmol/L 12/17/16 08:40 BUN 17 mg/dL (7-17) 12/17/16 08:40 Creatinine 1.24 mg/dL (0.52-1.04) H 12/17/16 08:40 Est GFR (MDRD) Af Amer 51 (>60 ml/min/1.73 sqM) 12/17/16 08:40 Est GFR (MDRD) Non-Af 42 (>60 ml/min/1.73 sqM) 12/17/16 08:40 Glucose 86 mg/dL (74-99) 12/17/16 08:40 POC Glucose (mg/dL) 117 mg/dL (75-99) H 12/14/16 20:56 POC Glu Critical Care Unit Nurse ID Fifi Garibay 12/14/16 20:56 Plasma Lactic Acid Deion 1.9 mmol/L (0.7-2.0) 12/14/16 20:54 Calcium 7.6 mg/dL (8.4-10.2) L 12/17/16 08:40 Magnesium 1.7 mg/dL (1.6-2.3) 12/16/16 19:19 Iron 33 ug/dL (37-170) L 12/14/16 20:54 TIBC 155 ug/dL (265-497) L 12/14/16 20:54 % Saturation 21.3 % (20-50) 12/14/16 20:54 Ferritin 298 ng/mL (11-264) H 12/14/16 20:54 Total Bilirubin 1.1 mg/dL (0.2-1.3) 12/14/16 20:54 AST 30 U/L (14-36) 12/14/16 20:54 ALT 42 U/L (9-52) 12/14/16 20:54 Alkaline Phosphatase 82 U/L (38-126) 12/14/16 20:54 Total Creatine Kinase 76 U/L (30-135) 12/14/16 20:54 CK-MB (CK-2) 0.6 ng/mL (0.0-2.4) 12/14/16 20:54 CK-MB (CK-2) Rel Index 0.8 12/14/16 20:54 Troponin I 0.022 ng/mL (0.000-0.034) 12/14/16 20:54 Total Protein 5.8 g/dL (6.3-8.2) L 12/14/16 20:54 Albumin 2.7 g/dL (3.5-5.0) L 12/14/16 20:54 Urine Color Yellow 12/14/16 20:52 Urine Appearance Turbid (Clear) H 12/14/16 20:52 Urine pH 5.0 (5.0-8.0) 12/14/16 20:52 Ur Specific [place] 1.014 (1.001-1.035) 12/14/16 20:52 Urine Protein 1+ (Negative) H 12/14/16 20:52 Urine Glucose (UA) Negative (Negative) 12/14/16 20:52 Urine Ketones Negative (Negative) 12/14/16 20:52 Urine Blood Trace (Negative) H 12/14/16 20:52 Urine Nitrate Negative (Negative) 12/14/16 20:52 Urine Bilirubin 1+ (Negative) H 12/14/16 20:52 Urine Urobilinogen 2.0 mg/dL (<2.0) 12/14/16 20:52 Ur Leukocyte Esterase Large (Negative) H 12/14/16 20:52 Urine WBC 75 /hpf (0-5) H 12/14/16 20:52 Urine WBC Clumps Many /hpf (None) H 12/14/16 20:52 Ur Squamous Epith Cells 2 /hpf (0-4) 12/14/16 20:52 Urine Bacteria Many /hpf (None) H 12/14/16 20:52 Hyaline Casts 631 /lpf (0-2) H 12/14/16 20:52 Urine Opiates Screen Not Detected (NotDetected) 12/14/16 20:52 Ur Oxycodone Screen Not Detected (NotDetected) 12/14/16 20:52 Urine Methadone Screen Not Detected (NotDetected) 12/14/16 20:52 Ur Propoxyphene Screen Not Detected (NotDetected) 12/14/16 20:52 Ur Barbiturates Screen Not Detected (NotDetected) 12/14/16 20:52 U Tricyclic Antidepress Not Detected (NotDetected) 12/14/16 20:52 Ur Phencyclidine Scrn Not Detected (NotDetected) 12/14/16 20:52 Ur Amphetamines Screen Not Detected (NotDetected) 12/14/16 20:52 U Methamphetamines Scrn Not Detected (NotDetected) 12/14/16 20:52 U Benzodiazepines Scrn Not Detected (NotDetected) 12/14/16 20:52 Urine Cocaine Screen Not Detected (NotDetected) 12/14/16 20:52 U Marijuana (THC) Screen Detected (NotDetected) H 12/14/16 20:52 Microbiology 12/14/16 21:06 Blood Blood Culture - Preliminary No Growth after 48 hours 12/15/16 13:15 Urine,Catheterized Urine Culture - Final Assessment and Plan (1) Acute renal failure Narrative/Plan: 76-year-old woman with multiple medical troubles presents to Hospital acutely ill. Has acute renal failure showing some improvement. Urinary infection. Recent urine infection with vancomycin-resistant enterococci. Currently receiving Zyvox and being monitored. The significant somewhat better today with hydration and control of her nausea. Does have much less nausea and emesis today. She over still quite miserable. Receiving anxiolytics and some pain control. Laboratories being followed. Hes nutritional supplementation when able.Patient's daughter is present. Relates that in September before the mother became ill. She was independent. Driving. Doing her own shopping preparing her own meals. Constantly they are quite concerned about her drastic overall decline. To be seen by gastroenterology. May need further neurological evaluations. Status: Acute (2) Altered mental status Status: Acute (3) Urinary tract infection Status: Acute
[2016-12-17] MEDS: ATORVASTATIN 10 MG TAB PO SCH (21:03)
[2016-12-17] MEDS: CHOLECALCIFEROL 1,000 UNIT TAB PO SCH (21:03)
[2016-12-17] MEDS: MELATONIN 5 MG TABLET PO SCH (21:04)
[2016-12-18] MEDS: SODIUM CHLORIDE 0.9% 1,000 ML IV SCH ×2 (01:46→08:35)
[2016-12-18] MEDS: AMIODARONE 200 MG TAB PO SCH (08:33)
[2016-12-18] MEDS: PANTOPRAZOLE 40 MG TABLET PO SCH (08:33)
[2016-12-18] MEDS: APIXABAN 2.5 MG TABLET PO SCH ×2 (08:33→21:10)
[2016-12-18] MEDS: LINEZOLID 600 MG in DEXTROSE/WATER 1 300ML.BAG IVPB SCH ×2 (08:34→21:10)
[2016-12-18] MEDS: POTASSIUM CHLORIDE ER 20 MEQ TAB.ER PO SCH ×3 (08:35→12:46)
[2016-12-18] MEDS: METOPROLOL SUCCINATE (ER) 50 MG TAB.ER.24H PO SCH (08:35)
[2016-12-18] MEDS: SENNOSIDES-DOCUSATE SODIUM 1 EACH TAB PO SCH ×2 (08:35→21:09)
[2016-12-18 09:29] LABS: Anion Gap 8 mmol/L; Blood Urea Nitrogen 13 mg/dL (7-17); Calcium 7.6 mg/dL (8.4-10.2); Carbon Dioxide 18 mmol/L (22-30); Chloride 115 mmol/L (98-107); Glucose 83 mg/dL (74-99); Non-African American GFR(MDRD) 50 (>60 ml/min/1.73 sqM); Potassium 3.4 mmol/L (3.5-5.1); Sodium 141 mmol/L (137-145)
[2016-12-18 09:49] LABS: Anisocytosis Slight; CH 30.6; CHCM 30.2; HCT 26.1 % (34.0-46.0); HDW 2.56; Hypochromasia Moderate; MCHC 30.5 g/dL (31.0-37.0); MCV 101.7 fL (80.0-100.0); Macrocytosis Moderate; Mean Platelet Volume 7.7; RBC 2.57 m/uL (3.80-5.40); RDW 17.1 % (11.5-15.5); WBC 4.1 k/uL (3.8-10.6)
[2016-12-18] MEDS: DRONABINOL 2.5 MG CAP PO SCH ×2 (10:04→16:32)
[2016-12-18] MEDS ORDERED: Potassium Replacement Protocol 1 EACH MISC MISCELLANE PRN (10:47)
[2016-12-18] MEDS: D5-0.45% NACL WITH KCL 20MEQ/L 1,000 ML IV SCH ×2 (11:14→23:56)
[2016-12-18] MEDS: CYANOCOBALAMIN 500 MCG TAB PO SCH (11:15)
[2016-12-18] MEDS: FERROUS SULFATE 325 MG TAB PO SCH (11:15)
--- NOTE | 2016-12-18 12:46 | P.PN ---
Subjective 76-year-old female was hospitalized in to to 11/25/2016 for acute blood loss anemia with hemoglobin of 5.0 with intractable nausea with no vomiting she had recent hemicolectomy at [facility] she was hospitalized had blood transfusion her hemoglobin was stabilized and ended up going back to [facility] [place] she seen Dr. Quintanilla a regular basis. 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 She had 2 different occasions in October when she presented to [facility] complaining of nausea and vomiting along with no bowel movement for several day she ended up going for EGD on November 27 was negative and colonoscopy was scheduled as an outpatient hemoglobin was pain above 7 did not require any further transfusion and did well going back to [facility] [place] her anticoagulation was resumed was doing better with it. Patient presented to [facility] in 12/14/2016 with change mental status worsening confusion dehydration significantly elevated creatinine BUN with stage III chronic kidney disease along with acute kidney injury possible ATN. Patient found to have UTI as well was started on IV antibiotics with Levaquin hydration and admitted to the hospital. Surprisingly continue complain of worsening abdominal pain along with worsening lower back pain and right sided hip pain with no recent injury. 12/16: Patient is continued on IV fluids at 100 mL per hour. Repeat BUN is 24 1.77. Patient's nausea is better but continues and scopolamine patch ordered. Patient has had very little urine output and Jewell catheter has been ordered. 12/17: Patient status appears to be much improved but she does continue to have concerns about nausea. Consult is in place with GI. Nephrology is following for acute kidney injury and continued on IV fluids at 100 mL per hour. She is continued on Zyvox for VRE urinary tract infection. Anticipate discharge back to half-way on Sunday or Sunday. 12/18: Patient has been seen by Dr. Gonzalez with possibility of central etiology for her nausea especially with her positional symptoms and visual field issues. Dr. Negro has cleared for discharge. Repeat BUN 13 and creatinine 1.07. patient's daughter is concerned about her change in overall health and mental status since September when all her illnesses started. Patient appears to be somewhat paranoid today. Marinol decreased to 2.5 mg twice daily. Objective - Vital Signs Vital signs: Vital Signs Temp 96.6 F L 12/18/16 08:32 Pulse 61 12/18/16 08:32 Resp 18 12/18/16 08:32 BP 109/81 12/18/16 08:32 Pulse Ox 98 12/18/16 08:32 Intake & Output 12/17/16 12/18/16 12/18/16 18:59 06:59 18:59 Output Total 350 375 Balance -350 -375 Output: Urine 350 375 Straight 350 Other: Voiding Method Indwelling Catheter Indwelling Catheter # Voids 1 - Exam General appearance: no average body habitus, cooperative, no disheveled, mild distress, no morbidly obese, no no acute distress, no obese, no severe distress , thin - EENT Eyes: no abnormal pupil, no anicteric sclerae, no disc margins sharp, no edentulous, no EOMI, no PERRLA, no fundus normal, no photophobia, no dentition normal, no poor dentition, no ptosis, no scleral icterus, normal appearance ENT: no hard of hearing, no hearing grossly normal, no NA/AT, normal oropharynx , no other, no pharyngeal erythema, no thrush, no tonsillar exudates, no tonsillar swelling Ears: bilateral: normal, bulging - Neck Neck: no lymphadenopathy, normal ROM, no other, no rigidity, no stridor, no thyromegaly Carotids: bilateral: upstroke normal, upstroke delayed Thyroid: bilateral: normal size - Respiratory Respiratory: bilateral: diminished, dullness, rales, rhonchi, wheezing - Cardiovascular Rhythm: regular Heart sounds: normal: S1, S2 Abnormal Heart Sounds: systolic murmur, S3 Gallop - Gastrointestinal Scar tissue from recent surgery and the midline with no sign of infection but had large keloid and area of old hematoma on it. General gastrointestinal: no absent bowel sounds, decreased bowel sounds, distended, no hepatomegaly, no hyperactive bowel sounds, normal bowel sounds, no organomegaly, no rigid, scaphoid, soft, no splenomegaly, tenderness, no umbilical hernia, no ventral hernia - Integumentary Integumentary: no calor, cellulitis, no cyanotic, no decreased turgor, no flushed, no jaundiced, no normal, no normal turgor, pale, rash, no ulcer - Neurologic Neurologic: CNII-XII intact - Musculoskeletal Musculoskeletal: gait normal, generalized weakness, strength equal bilaterally - Psychiatric Psychiatric: A&O x's 3, no appropriate affect, no intact judgment & insight - Labs CBC & Chem 7: 12/18/16 08:24 12/18/16 08:24 Labs: Abnormal Lab Results - Last 24 Hours (Table) 12/17/16 12/17/16 Range/Units 08:40 08:40 WBC 3.3 L (3.8-10.6) k/uL RBC 2.60 L (3.80-5.40) m/uL Hgb 8.2 L (11.4-16.0) gm/dL Hct 26.3 L (34.0-46.0) % MCV 101.1 H (80.0-100.0) fL RDW 17.5 H (11.5-15.5) % Chloride 114 H (98-107) mmol/L Carbon Dioxide 21 L (22-30) mmol/L Creatinine 1.24 H (0.52-1.04) mg/dL Calcium 7.6 L (8.4-10.2) mg/dL Assessment and Plan Plan: 1 metabolic encephalopathy secondary to infection, anemia, lower back pain, side effect medication along with UTI. Treat underlying disease. 2 sepsis with VRE UTI: With patient's current condition patient will be on IV antibiotics continue hydration watch symptoms closely repeat UA and wait for culture, with the any unusual infections specially with the resistant bacteria in the past will have patient seen infectious disease. 3 acute kidney injury most likely ATN with chronic kidney disease: Continue hydration repeat BUN/creatinine daily for the next few days. For recurrent abdominal pain with no significant abnormalities on CAT scan. 4 right-sided hip pain with no clear evidence of trauma recently with x-ray showing osteoarthrosis 5 recurrent anemia with blood transfusion different occasion last few weeks hemoglobin has been stable at this point continue to watch for any further recurrent bleed. 6 chronic edema: Has been on diuretics doing well. 7 A. fib with RVR with history of paroxysmal atrial fibrillation: Patient has been on Eliquis 5 mg twice a day along with metoprolol 100 mg daily and amiodarone 200 mg a day pulse rates under control currently. 8 hyperlipidemia: Has been on Lipitor. 9 lower back pain with worsening symptom will continue patient on smaller dose of hydrocodone or tramadol along with mild muscle relaxer. 10 recent history of hemicolectomy with complication: Patient still been watch by surgery. No obstruction this time. 11. metabolic acidosis. IV fluids changed to D5 half normal saline with KCl. CODE STATUS: Full code. Discharge plan: Return to [facility] Impression and plan of care have been directed as dictated by the signing physician. Mayi Lindsay nurse practitioner acting as scribe for signing physician. Time with Patient: Greater than 30
--- NOTE | 2016-12-18 19:17 | PN ---
Patient is seen for followup for acute kidney injury. Her renal function has improved significantly. She has been maintained on IV fluids. On examination, blood pressure is 121/55, heart rate 82 per minute. She is afebrile. Patient has been confused on and off. EXAMINATION OF THE HEART: S1 and S2. EXAMINATION OF THE LUNGS: Bilateral breath sounds are heard. Examination of lower extremities shows no evidence of edema. ABDOMEN: Soft, nontender. Labs show sodium 141, potassium 3.4, BUN 13, serum creatinine down to 1.07. ASSESSMENT: 1. Acute kidney injury, prerenal, currently improved with creatinine down to 1.07 from 3.5 on initial admission. 2. Hypokalemia, being replaced. 3. Previous urinary tract infection with enterococcus, maintained on Zyvox. 4. Atrial fibrillation with rapid ventricular response with previous history of paroxysmal atrial fibrillation, maintained on Eliquis and on metoprolol and amiodarone for rate control. 5. Hyperlipidemia. PLAN: Continue to encourage oral intake. May continue IV fluids for now.
--- NOTE | 2016-12-18 19:39 | P.PN ---
Subjective Patient now presents from [facility] to [facility] emergency center by EMS for dehydration and elevated creatinine. CAT scan of the brain showed cerebral atrophy with right-sided maxillary and ethmoid sinusitis and no change compared to prior. Chest x-ray shows no acute cardiopulmonary disease. On recent blood draw her BUN was 35 and creatinine 3.10 and repeat here is 39 and 3.50. Patient is complaining of pain all over especially in the back and the hips right more so than left. Apparently she has had falls at [facility]. Blood pressure was low with a heart rate of 47. Apparently patient has not been eating and drinking and had worsening confusion. Patient does complain of nausea without vomiting and complains of dizziness with movement. White count 6.7, hemoglobin 9.7. BUN 39 and creatinine 3.5. Urinalysis was turbid, blood trace, leukoesterase large, WBC 75, WBC clumps many, bacteria many. Urine drug screen was positive for marijuana and patient is on Marinol. Patient was started on Levaquin and admitted to the [facility] floor. Antibiotic was subsequently changed to Zyvox as her last urine culture done on November 24 was enterococcus gallinarum, multidrug resistant. Right hip x-ray was done that showed osteoarthrosis with no acute abnormality. CAT scan of the abdomen and pelvis without contrast has been done and report is pending. Patient has been seen by Dr. Penaloza for non-oliguric acute kidney injury. the nausea and retching of improved a bit today. Still not eating. Patient's daughter is concerned. Relates that the mother's been ill since September with similar symptoms. Objective - Vital Signs Vital signs: Vital Signs Temp 96.8 F L 12/18/16 15:00 Pulse 82 12/18/16 15:00 Resp 20 12/18/16 15:00 BP 121/55 12/18/16 15:00 Pulse Ox 98 12/18/16 15:00 Intake & Output 12/18/16 12/18/16 12/19/16 06:59 18:59 06:59 Output Total 375 350 Balance -375 -350 Output: Urine 375 350 Other: Voiding Method Indwelling Catheter Indwelling Catheter - Exam en: This is a 76-year-old female. HEENT: Head is atraumatic, normocephalic. Pupils equal, round. Sclerae is anicteric. NECK: Supple. No JVD. No lymphadenopathy. No thyromegaly. LUNGS: Clear to auscultation. No wheezes or rhonchi. No intercostal retractions. HEART: Regular rate and rhythm. No murmur. ABDOMEN: Soft. Bowel sounds are present. No masses. Generalized tenderness. EXTREMITIES: Positive bilateral pedal edema. No calf tenderness. NEUROLOGICAL: Patient is awake, alert and oriented x2the most interactive That she has been - Labs CBC & Chem 7: 12/18/16 08:24 12/18/16 08:24 Labs: Abnormal Lab Results - Last 24 Hours (Table) 12/18/16 12/18/16 Range/Units 08:24 08:24 RBC 2.57 L (3.80-5.40) m/uL Hgb 8.0 L (11.4-16.0) gm/dL Hct 26.1 L (34.0-46.0) % MCV 101.7 H (80.0-100.0) fL MCHC 30.5 L (31.0-37.0) g/dL RDW 17.1 H (11.5-15.5) % Potassium 3.4 L (3.5-5.1) mmol/L Chloride 115 H (98-107) mmol/L Carbon Dioxide 18 L (22-30) mmol/L Creatinine 1.07 H (0.52-1.04) mg/dL Calcium 7.6 L (8.4-10.2) mg/dL Laboratory Results WBC 4.1 k/uL (3.8-10.6) 12/18/16 08:24 RBC 2.57 m/uL (3.80-5.40) L 12/18/16 08:24 Hgb 8.0 gm/dL (11.4-16.0) L 12/18/16 08:24 Hct 26.1 % (34.0-46.0) L 12/18/16 08:24 MCV 101.7 fL (80.0-100.0) H 12/18/16 08:24 MCH 31.0 pg (25.0-35.0) 12/18/16 08:24 MCHC 30.5 g/dL (31.0-37.0) L 12/18/16 08:24 RDW 17.1 % (11.5-15.5) H 12/18/16 08:24 Plt Count 157 k/uL (150-450) 12/18/16 08:24 Neutrophils % 65 % 12/14/16 20:54 Lymphocytes % 28 % 12/14/16 20:54 Monocytes % 5 % 12/14/16 20:54 Eosinophils % 1 % 12/14/16 20:54 Basophils % 0 % 12/14/16 20:54 Neutrophils # 4.3 k/uL (1.3-7.7) 12/14/16 20:54 Lymphocytes # 1.9 k/uL (1.0-4.8) 12/14/16 20:54 Monocytes # 0.4 k/uL (0-1.0) 12/14/16 20:54 Eosinophils # 0.1 k/uL (0-0.7) 12/14/16 20:54 Basophils # 0.0 k/uL (0-0.2) 12/14/16 20:54 Hypochromasia Moderate 12/18/16 08:24 Anisocytosis Slight 12/18/16 08:24 Macrocytosis Moderate 12/18/16 08:24 PT 15.3 sec (9.0-12.0) H 12/14/16 20:54 INR 1.6 (<1.1) 12/14/16 20:54 APTT 28.0 sec (22.0-30.0) 12/14/16 20:54 Sodium 141 mmol/L (137-145) 12/18/16 08:24 Potassium 3.4 mmol/L (3.5-5.1) L 12/18/16 08:24 Chloride 115 mmol/L (98-107) H 12/18/16 08:24 Carbon Dioxide 18 mmol/L (22-30) L 12/18/16 08:24 Anion Gap 8 mmol/L 12/18/16 08:24 BUN 13 mg/dL (7-17) 12/18/16 08:24 Creatinine 1.07 mg/dL (0.52-1.04) H 12/18/16 08:24 Est GFR (MDRD) Af Amer >60 (>60 ml/min/1.73 sqM) 12/18/16 08:24 Est GFR (MDRD) Non-Af 50 (>60 ml/min/1.73 sqM) 12/18/16 08:24 Glucose 83 mg/dL (74-99) 12/18/16 08:24 POC Glucose (mg/dL) 117 mg/dL (75-99) H 12/14/16 20:56 POC Glu [employer] ID Fifi Garibay 12/14/16 20:56 Plasma Lactic Acid [place] 1.9 mmol/L (0.7-2.0) 12/14/16 20:54 Calcium 7.6 mg/dL (8.4-10.2) L 12/18/16 08:24 Magnesium 1.7 mg/dL (1.6-2.3) 12/16/16 19:19 Iron 33 ug/dL (37-170) L 12/14/16 20:54 TIBC 155 ug/dL (265-497) L 12/14/16 20:54 % Saturation 21.3 % (20-50) 12/14/16 20:54 Ferritin 298 ng/mL (11-264) H 12/14/16 20:54 Total Bilirubin 1.1 mg/dL (0.2-1.3) 12/14/16 20:54 AST 30 U/L (14-36) 12/14/16 20:54 ALT 42 U/L (9-52) 12/14/16 20:54 Alkaline Phosphatase 82 U/L (38-126) 12/14/16 20:54 Total Creatine Kinase 76 U/L (30-135) 12/14/16 20:54 CK-MB (CK-2) 0.6 ng/mL (0.0-2.4) 12/14/16 20:54 CK-MB (CK-2) Rel Index 0.8 12/14/16 20:54 Troponin I 0.022 ng/mL (0.000-0.034) 12/14/16 20:54 Total Protein 5.8 g/dL (6.3-8.2) L 12/14/16 20:54 Albumin 2.7 g/dL (3.5-5.0) L 12/14/16 20:54 Urine Color Yellow 12/14/16 20:52 Urine Appearance Turbid (Clear) H 12/14/16 20:52 Urine pH 5.0 (5.0-8.0) 12/14/16 20:52 Ur Specific [place] 1.014 (1.001-1.035) 12/14/16 20:52 Urine Protein 1+ (Negative) H 12/14/16 20:52 Urine Glucose (UA) Negative (Negative) 12/14/16 20:52 Urine Ketones Negative (Negative) 12/14/16 20:52 Urine Blood Trace (Negative) H 12/14/16 20:52 Urine Nitrate Negative (Negative) 12/14/16 20:52 Urine Bilirubin 1+ (Negative) H 12/14/16 20:52 Urine Urobilinogen 2.0 mg/dL (<2.0) 12/14/16 20:52 Ur Leukocyte Esterase Large (Negative) H 12/14/16 20:52 Urine WBC 75 /hpf (0-5) H 12/14/16 20:52 Urine WBC Clumps Many /hpf (None) H 12/14/16 20:52 Ur Squamous Epith Cells 2 /hpf (0-4) 12/14/16 20:52 Urine Bacteria Many /hpf (None) H 12/14/16 20:52 Hyaline Casts 631 /lpf (0-2) H 12/14/16 20:52 Urine Opiates Screen Not Detected (NotDetected) 12/14/16 20:52 Ur Oxycodone Screen Not Detected (NotDetected) 12/14/16 20:52 Urine Methadone Screen Not Detected (NotDetected) 12/14/16 20:52 Ur Propoxyphene Screen Not Detected (NotDetected) 12/14/16 20:52 Ur Barbiturates Screen Not Detected (NotDetected) 12/14/16 20:52 U Tricyclic Antidepress Not Detected (NotDetected) 12/14/16 20:52 Ur Phencyclidine Scrn Not Detected (NotDetected) 12/14/16 20:52 Ur Amphetamines Screen Not Detected (NotDetected) 12/14/16 20:52 U Methamphetamines Scrn Not Detected (NotDetected) 12/14/16 20:52 U Benzodiazepines Scrn Not Detected (NotDetected) 12/14/16 20:52 Urine Cocaine Screen Not Detected (NotDetected) 12/14/16 20:52 U Marijuana (THC) Screen Detected (NotDetected) H 12/14/16 20:52 Microbiology 12/14/16 21:06 Blood Blood Culture - Preliminary No Growth after 72 hours 12/15/16 13:15 Urine,Catheterized Urine Culture - Final Assessment and Plan (1) Acute renal failure Narrative/Plan: 76-year-old woman with multiple medical troubles presents to Hospital acutely ill. Has acute renal failure showing some improvement. Urinary infection. Recent urine infection with vancomycin-resistant enterococci. Currently receiving Zyvox and being monitored. The significant somewhat better today with hydration and control of her nausea. Does have much less nausea and emesis today. She over still quite miserable. Receiving anxiolytics and some pain control. Laboratories being followed. Her nutritional supplementation when able. Patient's daughter was present. Relates that in September before the mother became ill. She was independent. Driving. Doing her own shopping preparing her own meals. Constantly they are quite concerned about her drastic overall decline. To be seen by gastroenterology. Discussed with the primary team. Neurologic consult requested. Concerns to breast cancer involving the central nervous system versus a paraneoplastic syndrome causing her neurological changes. Urine culture is negative we'll likely discontinue Zyvox in the morning. Status: Acute (2) Altered mental status Status: Acute (3) Urinary tract infection Status: Acute
[2016-12-18] MEDS: MELATONIN 5 MG TABLET PO SCH (21:09)
[2016-12-18] MEDS: ATORVASTATIN 10 MG TAB PO SCH (21:09)
[2016-12-18] MEDS: CHOLECALCIFEROL 1,000 UNIT TAB PO SCH (21:10)
--- NOTE | 2016-12-18 22:59 | P.CNNES ---
History of Present Illness Consult date: 12/18/16 Requesting physician: Mayi Lindsay Reason for Consult: Altered Mental Status History of Present Illness: Neurology was requested to consult on the patient, a 76-year-old female who presented to [facility] emergency center by EMS for dehydration and elevated creatinine with altered mental status. CAT scan of the brain showed cerebral atrophy with right-sided maxillary and ethmoid sinusitis and no change compared to prior. Chest x-ray shows no acute cardiopulmonary disease. On recent blood draw her BUN was 35 and creatinine 3.10 and repeat here is 39 and 3.50. Patient is complaining of pain all over especially in the back and the hips right more so than left. Apparently she has had falls at [facility]. Blood pressure was low with a heart rate of 47. Apparently patient has not been eating and drinking and had worsening confusion. Patient does complain of nausea without vomiting and complains of dizziness with movement. White count 6.7, hemoglobin 9.7. BUN 39 and creatinine 3.5. Urinalysis was turbid, blood trace, leukoesterase large, WBC 75 , WBC clumps many, bacteria many. Urine drug screen was positive for marijuana and patient is on Marinol. Patient was started on Levaquin and [facility]. Antibiotic was subsequently changed to Zyvox as her last urine culture done on November 24 was enterococcus gallinarum, multidrug resistant. Right hip x-ray was done that showed osteoarthrosis with no acute abnormality. CAT scan of the abdomen and pelvis without contrast has been done and report is pending. Patient has been seen by Dr. Penaloza for non-oliguric acute kidney injury. The nausea and retching of improved a bit today. Still not eating. Patient's daughter is concerned. Relates that the mother's been ill since September with similar symptoms. On contact, the patient is supine in bed resting in no acute distress. Review of Systems all systems not previously noted in HPI or negative. Past Medical History Past Medical History: Cancer, GERD/Reflux, Hyperlipidemia, Hypertension Additional Past Medical History / Comment(s): Breast CA status post bilateral mastectomy and implant placement September 2016, ischemic bowel status post exploratory laparotomy History of Any Multi-Drug Resistant Organisms: Other MDRO Past Surgical History: Breast Surgery, Orthopedic Surgery Additional Past Surgical History / Comment(s): LEFT SHOULDER. LEFT FOOT. 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 Past Psychological History: No Psychological Hx Reported Smoking Status: Former smoker Past Alcohol Use History: None Reported Additional Past Alcohol Use History / Comment(s): Quit in 1984, smoked less than 1/2 PPD for 25 yrs. Past Drug Use History: None Reported - Past Family History Mother Family Medical History: No Reported History Medications and Allergies Home Medications Medication Instructions Recorded Confirmed Type Atorvastatin [Lipitor] 10 mg PO HS@209907/31/16 12/14/16 History Metoprolol Succinate [Toprol XL] 100 mg PO DAILY@2100 07/31/16 12/14/16 History Omeprazole 20 mg PO DAILY 07/31/16 12/14/16 History Amiodarone [Cordarone] 200 mg PO DAILY 11/24/16 12/14/16 History Apixaban [Eliquis] 5 mg PO BID 11/24/16 12/14/16 History Ferrous Sulfate [Feosol] 325 mg PO DAILY 11/24/16 12/14/16 History Sennosides-Docusate Sodium 1 tab PO BID 11/24/16 12/14/16 History [Senokot-S] Acetaminophen Tab [Tylenol Tab] 650 mg PO Q4H PRN 12/14/16 12/14/16 History Cholecalciferol [Vitamin D3] 2,000 unit PO HS 12/14/16 12/14/16 History Cyanocobalamin [Vitamin B-12] 500 mcg PO DAILY 12/14/16 12/14/16 History Darbepoetin Matty [Aranesp] 40 mcg SQ Q30D 12/14/16 12/15/16 History Dronabinol [Marinol] 5 mg PO BID 12/14/16 12/14/16 History Furosemide [Lasix] 40 mg PO MOWEFR 12/14/16 12/14/16 History Lactose-Reduced Food [Ensure Plus] 1 can PO TID BETWEEN MEALS 12/14/16 12/14/16 History Melatonin 6 mg PO HS 12/14/16 12/14/16 History Potassium Chloride [Klor-Con] 20 meq PO DAILY 12/14/16 12/14/16 History Allergies Allergy/AdvReac Type Severity Reaction Status Date / Time No Known Allergies Allergy Verified 12/14/16 23:06 Physical Examination - Vital Signs Vital Signs: Vital Signs Temp Pulse Resp BP BP Pulse Ox 12/18/16 15:00 96.8 F L 82 20 121/55 98 12/18/16 08:32 96.6 F L 61 18 109/81 98 12/17/16 23:00 98.0 F 64 20 100/47 98 Intake and Output 12/18/16 12/18/16 12/18/16 06:59 14:59 22:59 Output Total 225 350 Balance -225 -350 Output: Urine 225 350 Other: Voiding Method Indwelling Catheter Indwelling Catheter Indwelling Catheter Constitutional: AOx1, cooperative Head: NC/AT Throat: Supple, no masses Respiratory: No increased work of breathing Cardiac: Regular rate and Rhythm GI: non tender, non distended Musculoskeletal: Oil Inspector strengths are equal bilaterally 5/5, Lower extremity strengths are equal bilaterally at 5/5. Neurological: CN II-XII in tact, patient was AOx1, speech and language are normal, no unilateralizing weakness, no seizure activity note on physical exam. Sensation was normal. Integementary: no rash, no erythema Psychiatric: mood and affect appropriate Results - Laboratory Findings CBC and BMP: 12/18/16 08:24 12/18/16 20:30 Abnormal Lab Findings: Abnormal Labs 12/15/16 12/15/16 12/16/16 08:46 08:46 07:33 WBC RBC 2.92 L 2.57 L Hgb 9.0 L 8.0 L Hct 27.9 L 25.8 L MCV 100.2 H MCHC 30.9 L RDW 17.8 H 17.3 H Potassium Chloride 109 H Carbon Dioxide BUN 35 H Creatinine 2.85 H Calcium 7.8 L 12/16/16 12/17/16 12/17/16 07:33 08:40 08:40 WBC 3.3 L RBC 2.60 L Hgb 8.2 L Hct 26.3 L MCV 101.1 H MCHC RDW 17.5 H Potassium 3.2 L Chloride 112 H 114 H Carbon Dioxide 21 L BUN 24 H Creatinine 1.77 H 1.24 H Calcium 7.4 L 7.6 L 12/18/16 12/18/16 08:24 08:24 WBC RBC 2.57 L Hgb 8.0 L Hct 26.1 L MCV 101.7 H MCHC 30.5 L RDW 17.1 H Potassium 3.4 L Chloride 115 H Carbon Dioxide 18 L BUN Creatinine 1.07 H Calcium 7.6 L Assessment and Plan (1) Altered mental status Narrative/Plan: Patient has had significant documented mental status decline in approximately last 90-120 days per family. Due to the patient's ongoing infectious process as well as a history of cancer, I am going to request an MRI of the brain with and without contrast to rule out any other concurrent etiology. I'm also going to request an EEG at this time. ordered: MRI of the brain with and without contrast EEG Status: Acute (2) Toxic metabolic encephalopathy Narrative/Plan: Based on the patient's symptoms, laboratory blood work results and physical exam findings, patient is most likely experiencing toxic metabolic encephalopathy due to the urinary tract infection and dehydration. Appreciates infectious diseases recommendations. Status: Neurology will continue to follow provide any further updates as needed or warranted. Please refer to contact our office with any questions or concerns. I discussed the patient's pertinent medical information with Dr. Mendoza. He agrees with the plan of care as implemented. Status: Acute
[2016-12-18] MEDS: ONDANSETRON 4 MG/2 ML VIAL IVP PRN (23:55)
[2016-12-19] MEDS: HYDROmorphone 1 MG/ML 1 ML SYRINGE IVP PRN (01:31)
[2016-12-19] MEDS: ONDANSETRON 4 MG/2 ML VIAL IVP PRN (08:11)
[2016-12-19 09:11] LABS: Anion Gap 7 mmol/L; Blood Urea Nitrogen 10 mg/dL (7-17); Calcium 7.7 mg/dL (8.4-10.2); Carbon Dioxide 18 mmol/L (22-30); Chloride 114 mmol/L (98-107); Glucose 103 mg/dL (74-99); Non-African American GFR(MDRD) 56 (>60 ml/min/1.73 sqM); Potassium 4.4 mmol/L (3.5-5.1); Sodium 139 mmol/L (137-145)
[2016-12-19] MEDS ORDERED: LORazepam 2 MG/ML SYRINGE IV STA (09:24)
[2016-12-19 09:38] LABS: Anisocytosis Slight; CH 31.2; CHCM 31.5; HCT 27.9 % (34.0-46.0); HDW 2.65; HGB 8.8 gm/dL (11.4-16.0); Hypochromasia Slight; MCH 31.5 pg (25.0-35.0); MCHC 31.6 g/dL (31.0-37.0); MCV 99.6 fL (80.0-100.0); Macrocytosis Slight; Mean Platelet Volume 7.9; RDW 17.3 % (11.5-15.5)
--- NOTE | 2016-12-19 10:41 | MR ---
EXAMINATION TYPE: MR brain wo/w con DATE OF EXAM: 12/19/2016 10:19 AM COMPARISON: CT brain from 5 days ago. HISTORY: Altered mental status. Fall injury roughly 7 days ago. TECHNIQUE: Multiplanar, multisequence images of the brain and brainstem is performed without and with IV contras t, utilizing 17 mL intravenous MultiHance . FINDINGS: Diffusion weighted images demonstrate no evidence of a recent infarct or other diffusion ab normality. There is no worrisome extra-axial fluid collection. There is ventricular and sulcal promi nence consistent with mild age-related cerebral atrophy. There are focal and confluent areas of T2 hy perintensity seen throughout the deep and more pronounced in the periventricular white matter. Lesion s are nonspecific in appearance and distribution but most likely on basis of product of chronic small vessel ischemic change in patient of this age. Midline structures demonstrate normal morphology. The craniocervical junction appears within normal limits. Post contrast images demonstrate no abnormal enhancement. The dural venous sinuses appear pa tent. Both lenses are thinned. Completely opacified are fluid-filled right maxillary sinus, small kaley iber right frontal, and right sided ethmoid sinuses is redemonstrated. IMPRESSION: 1. There is mild diffuse age-related cerebral atrophy and moderate chronic small vessel ischemic peña ge. 2. There is persistent right-sided paranasal sinus disease possibly acute sinusitis.
[2016-12-19] MEDS: METOPROLOL SUCCINATE (ER) 50 MG TAB.ER.24H PO SCH (11:00)
[2016-12-19] MEDS: PANTOPRAZOLE 40 MG TABLET PO SCH (11:00)
[2016-12-19] MEDS: APIXABAN 2.5 MG TABLET PO SCH (11:00)
[2016-12-19] MEDS: FERROUS SULFATE 325 MG TAB PO SCH (11:00)
[2016-12-19] MEDS: SENNOSIDES-DOCUSATE SODIUM 1 EACH TAB PO SCH ×2 (11:00→20:46)
[2016-12-19] MEDS: CYANOCOBALAMIN 500 MCG TAB PO SCH (11:00)
[2016-12-19] MEDS: AMIODARONE 200 MG TAB PO SCH (11:00)
[2016-12-19] MEDS: POTASSIUM CHLORIDE ER 20 MEQ TAB.ER PO SCH (11:00)
[2016-12-19] MEDS: DRONABINOL 2.5 MG CAP PO SCH ×2 (11:01→17:57)
[2016-12-19] MEDS: LINEZOLID 600 MG in DEXTROSE/WATER 1 300ML.BAG IVPB SCH ×2 (11:01→20:44)
--- NOTE | 2016-12-19 11:50 | P.PN ---
Subjective Patient is seen in follow-up for acute kidney injury. Renal function continues to improve with creatinine of 0.96 today. Currently resting in bed. No vomiting or diarrhea. Oral intake is good. Currently maintained on antibiotics for VRE UTI. Vital signs are stable. General: The patient appeared well nourished and normally developed. HEENT: Head exam is unremarkable. Neck is without jugular venous distension. LUNGS: Lungs are clear to auscultation and percussion. Breath sounds decreased. HEART: Rate and Rhythm are regular. First and second heart sounds normal. No murmurs, rubs or gallops. ABDOMEN: Abdominal exam reveals normal bowel sounds. Non-tender and non- distended. No evidence of peritonitis. EXTREMITITES: No clubbing, cyanosis, or edema. Objective - Vital Signs Vital signs: Vital Signs Temp 97.6 F 12/19/16 07:00 Pulse 84 12/19/16 07:00 Resp 16 12/19/16 07:00 BP 123/68 12/19/16 07:00 Pulse Ox 99 12/19/16 07:00 Intake & Output 12/18/16 12/19/16 12/19/16 18:59 06:59 18:59 Output Total 350 250 Balance -350 -250 Output: Urine 350 250 Other: Voiding Method Indwelling Catheter Indwelling Catheter Indwelling Catheter - Labs CBC & Chem 7: 12/19/16 07:50 12/19/16 07:50 Labs: Abnormal Lab Results - Last 24 Hours (Table) 12/19/16 12/19/16 Range/Units 07:50 07:50 RBC 2.80 L (3.80-5.40) m/uL Hgb 8.8 L (11.4-16.0) gm/dL Hct 27.9 L (34.0-46.0) % RDW 17.3 H (11.5-15.5) % Chloride 114 H (98-107) mmol/L Carbon Dioxide 18 L (22-30) mmol/L Glucose 103 H (74-99) mg/dL Calcium 7.7 L (8.4-10.2) mg/dL Assessment and Plan Plan: Assessment: #1. Nonoliguric acute kidney injury mostly prerenal in nature secondary to poor oral intake and vomiting. Improving. Creatinine was 3.5 on admission and is down to 0.96 today. #2. Hyperchloremic metabolic acidosis secondary to IV fluids. #3. Recent urinary tract infection with urine culture positive for enterococcus maintained on linezolid. #4. Anemia. Iron replete. Plan: Hep-Lock IV fluids. Encourage oral intake. Avoid nephrotoxic agents and hypotensive episodes. Antibiotics per infectious disease recommendations.
--- NOTE | 2016-12-19 14:34 | P.PN ---
Subjective 76-year-old female was hospitalized in to to 11/25/2016 for acute blood loss anemia with hemoglobin of 5.0 with intractable nausea with no vomiting she had recent hemicolectomy at [facility] she was hospitalized had blood transfusion her hemoglobin was stabilized and ended up going back to [facility] on the [place] which she seen Dr. Quintanilla a regular basis. Earlier last year in September patient was transferred to [facility] for severe abdominal pain and severe anemia and end up going for exploratory laparotomy with SVR for ischemic bowel on 09/29/2016 and return to the OR for closure Handswen anastomosis 2 at [facility] on 09/30/2016. She had 2 different occasions in October when she presented to [facility] complaining of nausea and vomiting along with no bowel movement for several day she ended up going for EGD on November 27 was negative and colonoscopy was scheduled as an outpatient hemoglobin was pain above 7 did not require any further transfusion and did well going back to [facility] on the [place] her anticoagulation was resumed was doing better with it. Patient presented to [facility] in 12/14/2016 with change mental status worsening confusion dehydration significantly elevated creatinine BUN with stage III chronic kidney disease along with acute kidney injury possible ATN. Patient found to have UTI as well was started on IV antibiotics with Levaquin hydration and admitted to the hospital. Surprisingly continue complain of worsening abdominal pain along with worsening lower back pain and right sided hip pain with no recent injury. 12/16: Patient is continued on IV fluids at 100 mL per hour. Repeat BUN is 24 1.77. Patient's nausea is better but continues and scopolamine patch ordered. Patient has had very little urine output and Jewell catheter has been ordered. 12/17: Patient status appears to be much improved but she does continue to have concerns about nausea. Consult is in place with GI. Nephrology is following for acute kidney injury and continued on IV fluids at 100 mL per hour. She is continued on Zyvox for VRE urinary tract infection. Anticipate discharge back to [facility] on Sunday or Sunday. 12/18: Patient has been seen by Dr. Gonzalez with possibility of central etiology for her nausea especially with her positional symptoms and visual field issues. Dr. Negro has cleared for discharge. Repeat BUN 13 and creatinine 1.07. patient's daughter is concerned about her change in overall health and mental status since September when all her illnesses started. Patient appears to be somewhat paranoid today. Marinol decreased to 2.5 mg twice daily. 12/19: Patient has been seen by neurology. MRI showed mild diffuse age-related cerebral atrophy and moderate chronic small vessel ischemic change. Persistent right-sided paranasal sinus disease possibly acute sinusitis. Electrolytes are improved from yesterday. Attempted to determine when Marinol was started. It appears that was started at [facility] on her last hospitalization in November. Patient is able to state the city, month and year. Objective - Vital Signs Vital signs: Vital Signs Temp 97.6 F 12/19/16 07:00 Pulse 84 12/19/16 07:00 Resp 16 12/19/16 07:00 BP 123/68 12/19/16 07:00 Pulse Ox 99 12/19/16 07:00 Intake & Output 12/18/16 12/19/16 12/19/16 18:59 06:59 18:59 Output Total 350 250 Balance -350 -250 Output: Urine 350 250 Other: Voiding Method Indwelling Catheter Indwelling Catheter - Exam General appearance: no average body habitus, cooperative, no disheveled, mild distress, no morbidly obese, no no acute distress, no obese, no severe distress , thin - EENT Eyes: no abnormal pupil, no anicteric sclerae, no disc margins sharp, no edentulous, no EOMI, no PERRLA, no fundus normal, no photophobia, no dentition normal, no poor dentition, no ptosis, no scleral icterus, normal appearance ENT: no hard of hearing, no hearing grossly normal, no NA/AT, normal oropharynx , no other, no pharyngeal erythema, no thrush, no tonsillar exudates, no tonsillar swelling Ears: bilateral: normal, bulging - Neck Neck: no lymphadenopathy, normal ROM, no other, no rigidity, no stridor, no thyromegaly Carotids: bilateral: upstroke normal, upstroke delayed Thyroid: bilateral: normal size - Respiratory Respiratory: bilateral: diminished, dullness, rales, rhonchi, wheezing - Cardiovascular Rhythm: regular Heart sounds: normal: S1, S2 Abnormal Heart Sounds: systolic murmur, S3 Gallop - Gastrointestinal Scar tissue from recent surgery and the midline with no sign of infection but had large keloid and area of old hematoma on it. General gastrointestinal: no absent bowel sounds, decreased bowel sounds, distended, no hepatomegaly, no hyperactive bowel sounds, normal bowel sounds, no organomegaly, no rigid, scaphoid, soft, no splenomegaly, tenderness, no umbilical hernia, no ventral hernia - Integumentary Integumentary: no calor, cellulitis, no cyanotic, no decreased turgor, no flushed, no jaundiced, no normal, no normal turgor, pale, rash, no ulcer - Neurologic Neurologic: CNII-XII intact - Musculoskeletal Musculoskeletal: gait normal, generalized weakness, strength equal bilaterally - Psychiatric Psychiatric: A&O x's 3, no appropriate affect, no intact judgment & insight - Labs CBC & Chem 7: 12/19/16 07:50 12/19/16 07:50 Labs: Abnormal Lab Results - Last 24 Hours (Table) 12/19/16 12/19/16 Range/Units 07:50 07:50 RBC 2.80 L (3.80-5.40) m/uL Hgb 8.8 L (11.4-16.0) gm/dL Hct 27.9 L (34.0-46.0) % RDW 17.3 H (11.5-15.5) % Chloride 114 H (98-107) mmol/L Carbon Dioxide 18 L (22-30) mmol/L Glucose 103 H (74-99) mg/dL Calcium 7.7 L (8.4-10.2) mg/dL Assessment and Plan Plan: 1 metabolic encephalopathy secondary to infection, anemia, lower back pain, side effect medication along with UTI. Treat underlying disease. MRI as above. 2 sepsis with VRE UTI: With patient's current condition patient will be on IV antibiotics continue hydration watch symptoms closely repeat UA and wait for culture, with the any unusual infections specially with the resistant bacteria in the past will have patient seen infectious disease. 3 acute kidney injury most likely ATN with chronic kidney disease: Continue hydration repeat BUN/creatinine daily for the next few days. 4 recurrent abdominal pain with no significant abnormalities on CAT scan. 5 right-sided hip pain with no clear evidence of trauma recently with x-ray showing osteoarthrosis 6 recurrent anemia with blood transfusion different occasion last few weeks hemoglobin has been stable at this point continue to watch for any further recurrent bleed. 7 chronic edema: Has been on diuretics doing well. 8 A. fib with RVR with history of paroxysmal atrial fibrillation: Patient has been on Eliquis 5 mg twice a day along with metoprolol 100 mg daily and amiodarone 200 mg a day pulse rates under control currently. 9 hyperlipidemia: Has been on Lipitor. 10 lower back pain with worsening symptom will continue patient on smaller dose of hydrocodone or tramadol along with mild muscle relaxer. 11 recent history of hemicolectomy with complication: Patient still been watch by surgery. No obstruction this time. 12. metabolic acidosis. IV fluids changed to D5 half normal saline with KCl. CODE STATUS: Full code. Discharge plan: Return to [facility] Impression and plan of care have been directed as dictated by the signing physician. Mayi Lindsay nurse practitioner acting as scribe for signing physician. Time with Patient: Greater than 30
--- NOTE | 2016-12-19 19:48 | P.PN ---
Subjective Principal diagnosis: altered mental status Neurology this following on the patient, a 76-year-old female who presented to [facility] emergency center by EMS for dehydration and elevated creatinine with altered mental status. CAT scan of the brain showed cerebral atrophy with right-sided maxillary and ethmoid sinusitis and no change compared to prior. Chest x-ray shows no acute cardiopulmonary disease. On recent blood draw her BUN was 35 and creatinine 3.10 and repeat here is 39 and 3.50. Patient is complaining of pain all over especially in the back and the hips right more so than left. Apparently she has had falls at [facility]. Blood pressure was low with a heart rate of 47. Apparently patient has not been eating and drinking and had worsening confusion. Patient does complain of nausea without vomiting and complains of dizziness with movement. White count 6.7, hemoglobin 9.7. BUN 39 and creatinine 3.5. Urinalysis was turbid, blood trace, leukoesterase large, WBC 75, WBC clumps many, bacteria many. Urine drug screen was positive for marijuana and patient is on Marinol. Patient was started on Levaquin and admitted to the [facility] floor. Antibiotic was subsequently changed to Zyvox as her last urine culture done on November 24 was enterococcus gallinarum, multidrug resistant. Right hip x-ray was done that showed osteoarthrosis with no acute abnormality. CAT scan of the abdomen and pelvis without contrast has been done and report is pending. Patient has been seen by Dr. Penaloza for non-oliguric acute kidney injury. On contact, the patient is supine in bed resting in no acute distress. Physical therapy was present at the bedside actively working with the patient. the patient did not appear to have any improvement since she was last rounded on yesterday. Objective - Vital Signs Vital signs: Vital Signs Temp 98.2 F 12/19/16 15:00 Pulse 67 12/19/16 15:00 Resp 16 12/19/16 15:47 BP 111/64 12/19/16 15:00 Pulse Ox 96 12/19/16 15:00 Intake & Output 12/19/16 12/19/16 12/20/16 06:59 18:59 06:59 Intake Total 100 Output Total 250 300 Balance -250 -200 Intake: Oral 100 Output: Urine 250 300 Other: Voiding Method Indwelling Catheter Indwelling Catheter # Voids 1 - Exam Constitutional: AOx1, cooperative Head: NC/AT Throat: Supple, no masses Respiratory: No increased work of breathing Cardiac: Regular rate and Rhythm GI: non tender, non distended Musculoskeletal: Route Sales Person strengths are equal bilaterally 5/5, Lower extremity strengths are equal bilaterally at 5/5. Neurological: CN II-XII in tact, patient was AOx1, speech and language are normal, no unilateralizing weakness, no seizure activity note on physical exam. Sensation was normal. Integementary: no rash, no erythema Psychiatric: patient was confused and also had hallucinations intermittently. - Labs CBC & Chem 7: 12/19/16 07:50 12/19/16 07:50 Labs: Abnormal Lab Results - Last 24 Hours (Table) 12/19/16 12/19/16 Range/Units 07:50 07:50 RBC 2.80 L (3.80-5.40) m/uL Hgb 8.8 L (11.4-16.0) gm/dL Hct 27.9 L (34.0-46.0) % RDW 17.3 H (11.5-15.5) % Chloride 114 H (98-107) mmol/L Carbon Dioxide 18 L (22-30) mmol/L Glucose 103 H (74-99) mg/dL Calcium 7.7 L (8.4-10.2) mg/dL Assessment and Plan (1) Altered mental status Narrative/Plan: Patient has had significant documented mental status decline in approximately last 90-120 days per family. Due to the patient's ongoing infectious process as well as a history of cancer, an MRI of the brain with and without contrast was completed. MRI of the brain noted chronic small vessel ischemic disease, age- related atrophy and sinusitis. the EEG returned normal. Status: Acute (2) Toxic metabolic encephalopathy Narrative/Plan: Based on the patient's symptoms, laboratory blood work results and physical exam findings, patient is most likely experiencing toxic metabolic encephalopathy due to the urinary tract infection and dehydration. Appreciates infectious diseases recommendations. Status: Patient be cleared from a neurological standpoint. Neurology will be available to reconsult or provide further insight on the patient as requested. I discussed the patient's pertinent medical information with Dr. Mendoza. He agrees with the plan of care as implemented. Status: Acute
[2016-12-19] MEDS: ATORVASTATIN 10 MG TAB PO SCH (20:44)
[2016-12-19] MEDS: MELATONIN 5 MG TABLET PO SCH (20:44)
[2016-12-19] MEDS: CHOLECALCIFEROL 1,000 UNIT TAB PO SCH (20:44)
[2016-12-19] MEDS: APIXABAN 5 MG TAB PO SCH (21:03)
--- NOTE | 2016-12-19 21:49 | P.PN ---
Subjective Patient now presents from [facility] to [facility] emergency center by EMS for dehydration and elevated creatinine. CAT scan of the brain showed cerebral atrophy with right-sided maxillary and ethmoid sinusitis and no change compared to prior. Chest x-ray shows no acute cardiopulmonary disease. On recent blood draw her BUN was 35 and creatinine 3.10 and repeat here is 39 and 3.50. Patient is complaining of pain all over especially in the back and the hips right more so than left. Apparently she has had falls at [facility]. Blood pressure was low with a heart rate of 47. Apparently patient has not been eating and drinking and had worsening confusion. Patient does complain of nausea without vomiting and complains of dizziness with movement. White count 6.7, hemoglobin 9.7. BUN 39 and creatinine 3.5. Urinalysis was turbid, blood trace, leukoesterase large, WBC 75, WBC clumps many, bacteria many. Urine drug screen was positive for marijuana and patient is on Marinol. Patient was started on Levaquin and admitted to the [facility] floor. Antibiotic was subsequently changed to Zyvox as her last urine culture done on November 24 was enterococcus gallinarum, multidrug resistant. Right hip x-ray was done that showed osteoarthrosis with no acute abnormality. CAT scan of the abdomen and pelvis without contrast has been done and report is pending. Patient has been seen by Dr. Penaloza for non-oliguric acute kidney injury. the nausea and retching are further improved. Still not eating. Patient's daughter is concerned. Relates that the mother's been ill since September with similar symptoms. Objective - Vital Signs Vital signs: Vital Signs Temp 98.2 F 12/19/16 15:00 Pulse 67 12/19/16 15:00 Resp 16 12/19/16 15:47 BP 111/64 12/19/16 15:00 Pulse Ox 96 12/19/16 15:00 Intake & Output 12/19/16 12/19/16 12/20/16 06:59 18:59 06:59 Intake Total 100 Output Total 250 300 Balance -250 -200 Intake: Oral 100 Output: Urine 250 300 Other: Voiding Method Indwelling Catheter Indwelling Catheter Indwelling Catheter # Voids 1 - Exam en: This is a 76-year-old female. HEENT: Head is atraumatic, normocephalic. Pupils equal, round. Sclerae is anicteric. NECK: Supple. No JVD. No lymphadenopathy. No thyromegaly. LUNGS: Clear to auscultation. No wheezes or rhonchi. No intercostal retractions. HEART: Regular rate and rhythm. No murmur. ABDOMEN: Soft. Bowel sounds are present. No masses. Generalized tenderness. EXTREMITIES: Positive bilateral pedal edema. No calf tenderness. NEUROLOGICAL: Patient is awake, alert and oriented x1 - Labs CBC & Chem 7: 12/19/16 07:50 12/19/16 07:50 Labs: Abnormal Lab Results - Last 24 Hours (Table) 12/19/16 12/19/16 Range/Units 07:50 07:50 RBC 2.80 L (3.80-5.40) m/uL Hgb 8.8 L (11.4-16.0) gm/dL Hct 27.9 L (34.0-46.0) % RDW 17.3 H (11.5-15.5) % Chloride 114 H (98-107) mmol/L Carbon Dioxide 18 L (22-30) mmol/L Glucose 103 H (74-99) mg/dL Calcium 7.7 L (8.4-10.2) mg/dL Laboratory Results WBC 6.0 k/uL (3.8-10.6) 12/19/16 07:50 RBC 2.80 m/uL (3.80-5.40) L 12/19/16 07:50 Hgb 8.8 gm/dL (11.4-16.0) L 12/19/16 07:50 Hct 27.9 % (34.0-46.0) L 12/19/16 07:50 MCV 99.6 fL (80.0-100.0) 12/19/16 07:50 MCH 31.5 pg (25.0-35.0) 12/19/16 07:50 MCHC 31.6 g/dL (31.0-37.0) 12/19/16 07:50 RDW 17.3 % (11.5-15.5) H 12/19/16 07:50 Plt Count 165 k/uL (150-450) 12/19/16 07:50 Neutrophils % 65 % 12/14/16 20:54 Lymphocytes % 28 % 12/14/16 20:54 Monocytes % 5 % 12/14/16 20:54 Eosinophils % 1 % 12/14/16 20:54 Basophils % 0 % 12/14/16 20:54 Neutrophils # 4.3 k/uL (1.3-7.7) 12/14/16 20:54 Lymphocytes # 1.9 k/uL (1.0-4.8) 12/14/16 20:54 Monocytes # 0.4 k/uL (0-1.0) 12/14/16 20:54 Eosinophils # 0.1 k/uL (0-0.7) 12/14/16 20:54 Basophils # 0.0 k/uL (0-0.2) 12/14/16 20:54 Hypochromasia Slight 12/19/16 07:50 Anisocytosis Slight 12/19/16 07:50 Macrocytosis Slight 12/19/16 07:50 PT 15.3 sec (9.0-12.0) H 12/14/16 20:54 INR 1.6 (<1.1) 12/14/16 20:54 APTT 28.0 sec (22.0-30.0) 12/14/16 20:54 Sodium 139 mmol/L (137-145) 12/19/16 07:50 Potassium 4.4 mmol/L (3.5-5.1) 12/19/16 07:50 Chloride 114 mmol/L (98-107) H 12/19/16 07:50 Carbon Dioxide 18 mmol/L (22-30) L 12/19/16 07:50 Anion Gap 7 mmol/L 12/19/16 07:50 BUN 10 mg/dL (7-17) 12/19/16 07:50 Creatinine 0.96 mg/dL (0.52-1.04) 12/19/16 07:50 Est GFR (MDRD) Af Amer >60 (>60 ml/min/1.73 sqM) 12/19/16 07:50 Est GFR (MDRD) Non-Af 56 (>60 ml/min/1.73 sqM) 12/19/16 07:50 Glucose 103 mg/dL (74-99) H 12/19/16 07:50 POC Glucose (mg/dL) 117 mg/dL (75-99) H 12/14/16 20:56 POC Glu Dairy Husbandry Teacher ID Fifi Garibay 12/14/16 20:56 Plasma Lactic Acid Deion 1.9 mmol/L (0.7-2.0) 12/14/16 20:54 Calcium 7.7 mg/dL (8.4-10.2) L 12/19/16 07:50 Magnesium 1.7 mg/dL (1.6-2.3) 12/16/16 19:19 Iron 33 ug/dL (37-170) L 12/14/16 20:54 TIBC 155 ug/dL (265-497) L 12/14/16 20:54 % Saturation 21.3 % (20-50) 12/14/16 20:54 Ferritin 298 ng/mL (11-264) H 12/14/16 20:54 Total Bilirubin 1.1 mg/dL (0.2-1.3) 12/14/16 20:54 AST 30 U/L (14-36) 12/14/16 20:54 ALT 42 U/L (9-52) 12/14/16 20:54 Alkaline Phosphatase 82 U/L (38-126) 12/14/16 20:54 Total Creatine Kinase 76 U/L (30-135) 12/14/16 20:54 CK-MB (CK-2) 0.6 ng/mL (0.0-2.4) 12/14/16 20:54 CK-MB (CK-2) Rel Index 0.8 12/14/16 20:54 Troponin I 0.022 ng/mL (0.000-0.034) 12/14/16 20:54 Total Protein 5.8 g/dL (6.3-8.2) L 12/14/16 20:54 Albumin 2.7 g/dL (3.5-5.0) L 12/14/16 20:54 Urine Color Yellow 12/14/16 20:52 Urine Appearance Turbid (Clear) H 12/14/16 20:52 Urine pH 5.0 (5.0-8.0) 12/14/16 20:52 Ur Specific [place] 1.014 (1.001-1.035) 12/14/16 20:52 Urine Protein 1+ (Negative) H 12/14/16 20:52 Urine Glucose (UA) Negative (Negative) 12/14/16 20:52 Urine Ketones Negative (Negative) 12/14/16 20:52 Urine Blood Trace (Negative) H 12/14/16 20:52 Urine Nitrate Negative (Negative) 12/14/16 20:52 Urine Bilirubin 1+ (Negative) H 12/14/16 20:52 Urine Urobilinogen 2.0 mg/dL (<2.0) 12/14/16 20:52 Ur Leukocyte Esterase Large (Negative) H 12/14/16 20:52 Urine WBC 75 /hpf (0-5) H 12/14/16 20:52 Urine WBC Clumps Many /hpf (None) H 12/14/16 20:52 Ur Squamous Epith Cells 2 /hpf (0-4) 12/14/16 20:52 Urine Bacteria Many /hpf (None) H 12/14/16 20:52 Hyaline Casts 631 /lpf (0-2) H 12/14/16 20:52 Urine Opiates Screen Not Detected (NotDetected) 12/14/16 20:52 Ur Oxycodone Screen Not Detected (NotDetected) 12/14/16 20:52 Urine Methadone Screen Not Detected (NotDetected) 12/14/16 20:52 Ur Propoxyphene Screen Not Detected (NotDetected) 12/14/16 20:52 Ur Barbiturates Screen Not Detected (NotDetected) 12/14/16 20:52 U Tricyclic Antidepress Not Detected (NotDetected) 12/14/16 20:52 Ur Phencyclidine Scrn Not Detected (NotDetected) 12/14/16 20:52 Ur Amphetamines Screen Not Detected (NotDetected) 12/14/16 20:52 U Methamphetamines Scrn Not Detected (NotDetected) 12/14/16 20:52 U Benzodiazepines Scrn Not Detected (NotDetected) 12/14/16 20:52 Urine Cocaine Screen Not Detected (NotDetected) 12/14/16 20:52 U Marijuana (THC) Screen Detected (NotDetected) H 12/14/16 20:52 Microbiology 12/14/16 21:06 Blood Blood Culture - Preliminary No Growth after 96 hours 12/15/16 13:15 Urine,Catheterized Urine Culture - Final - Imaging and Cardiology MRI - head: report reviewed (advanced degenerative changes) Assessment and Plan (1) Acute renal failure Narrative/Plan: 76-year-old woman with multiple medical troubles presents to Hospital acutely ill. Has acute renal failure showing some improvement. Urinary infection. Recent urine infection with vancomycin-resistant enterococci. Currently receiving Zyvox and being monitored. The significant somewhat better today with hydration and control of her nausea. Does have much less nausea and emesis today. She over still quite miserable. Receiving anxiolytics and some pain control. Laboratories being followed. Her nutritional supplementation when able. Patient's daughter was present. Relates that in September before the mother became ill. She was independent. Driving. Doing her own shopping preparing her own meals. Constantly they are quite concerned about her drastic overall decline. To be seen by gastroenterology. Discussed with the primary team. Neurologic consult performed, work up negative so far. Marinol to be held Discontinue Zyvox negative urine cultures Status: Acute (2) Altered mental status Status: Acute (3) Urinary tract infection Status: Acute
--- NOTE | 2016-12-20 05:41 | EEG ---
DATE OF SERVICE: 12/19/2016 REASON FOR TESTING: Altered mental status. AGE: 76Y DESCRIPTION OF THE PROCEDURE: This EEG was performed using a 21-channel digital electroencephalograph, following the international 10 to 20 system. DESCRIPTION OF THE RECORDING: From the beginning of the tracing, and with the patient's eyes closed, the background rhythm was mostly consisting of 8 Hz alpha frequency in the posterior occipital leads. No obvious asymmetry is seen. Frequent muscle artifacts and occasional lead artifacts are seen. Photic stimulation was performed with no driving response seen. No pathological waves were elicited. More significant muscle artifacts are seen later in the tracing. Hyperventilation was not performed. The patient remains awake throughout the tracing. No epileptiform discharges were seen. INTERPRETATION: This awake EEG is limited due to the frequency of movement artifacts and muscle artifacts. No obvious epileptiform discharges were seen. The absence of epileptiform discharges does not rule out the diagnosis of epilepsy, therefore, clinical correlation is recommended.
[2016-12-20] MEDS: APIXABAN 5 MG TAB PO SCH ×2 (08:46→20:23)
[2016-12-20] MEDS: AMIODARONE 200 MG TAB PO SCH (08:46)
[2016-12-20] MEDS: PANTOPRAZOLE 40 MG TABLET PO SCH (08:46)
[2016-12-20] MEDS: METOPROLOL SUCCINATE (ER) 50 MG TAB.ER.24H PO SCH (08:46)
[2016-12-20] MEDS: SENNOSIDES-DOCUSATE SODIUM 1 EACH TAB PO SCH ×2 (08:47→20:23)
[2016-12-20] MEDS: DRONABINOL 2.5 MG CAP PO SCH ×2 (08:47→16:58)
[2016-12-20] MEDS: ONDANSETRON 4 MG/2 ML VIAL IVP PRN (08:52)
[2016-12-20] MEDS: CYANOCOBALAMIN 500 MCG TAB PO SCH (11:53)
[2016-12-20] MEDS: FERROUS SULFATE 325 MG TAB PO SCH (11:53)
[2016-12-20] MEDS ORDERED: FUROSEMIDE 10 MG/ML 4 ML VIAL IV STA (13:10)
--- NOTE | 2016-12-20 14:05 | FL ---
EXAMINATION TYPE: FL UGI w esophagus DATE OF EXAM: 12/20/2016 1:59 PM COMPARISON: CT abdomen pelvis 5 days ago. HISTORY: Dysphasia with food getting caught in esophagus TECHNIQUE: A single contrast limited esophagram study is performed. A total of 1.37 minutes of fluor oscopic time was utilized during procedure. Patient has little motility and only semiupright supine i maging is performed. FINDINGS: Machine Shop Worker image of the chest and upper abdomen shows no gross abnormality. Overlying breast ex panders are noted. The esophagus shows satisfactory motility and emptying into the stomach. There is some dysmotility wi th poor emptying. No intraluminal mass is seen. No evidence of hiatal hernia or stricture noted. No s ignificant gastroesophageal reflux was seen during real time performance of this study. IMPRESSION: No large obstructing mass or stricture identified.
--- NOTE | 2016-12-20 14:37 | P.PN ---
Subjective 76-year-old female was hospitalized in to to 11/25/2016 for acute blood loss anemia with hemoglobin of 5.0 with intractable nausea with no vomiting she had recent hemicolectomy at [facility] she was hospitalized had blood transfusion her hemoglobin was stabilized and ended up going back to [facility] on the surprise which she seen Dr. Quintanilla a regular basis. Earlier last year in September patient was transferred to [facility] for severe abdominal pain and severe anemia and end up going for exploratory laparotomy with SVR for ischemic bowel on 09/29/2016 and return to the OR for closure Handswen anastomosis 2 at [facility] on 09/30/2016. She had 2 different occasions in October when she presented to [facility] complaining of nausea and vomiting along with no bowel movement for several day she ended up going for EGD on November 27 was negative and colonoscopy was scheduled as an outpatient hemoglobin was pain above 7 did not require any further transfusion and did well going back to [facility] on the surprise her anticoagulation was resumed was doing better with it. Patient presented to [facility] in 12/14/2016 with change mental status worsening confusion dehydration significantly elevated creatinine BUN with stage III chronic kidney disease along with acute kidney injury possible ATN. Patient found to have UTI as well was started on IV antibiotics with Levaquin hydration and admitted to the hospital. Surprisingly continue complain of worsening abdominal pain along with worsening lower back pain and right sided hip pain with no recent injury. 12/16: Patient is continued on IV fluids at 100 mL per hour. Repeat BUN is 24 1.77. Patient's nausea is better but continues and scopolamine patch ordered. Patient has had very little urine output and Jewell catheter has been ordered. 12/17: Patient status appears to be much improved but she does continue to have concerns about nausea. Consult is in place with GI. Nephrology is following for acute kidney injury and continued on IV fluids at 100 mL per hour. She is continued on Zyvox for VRE urinary tract infection. Anticipate discharge back to [facility] on Sunday or Sunday. 12/18: Patient has been seen by Dr. Gonzalez with possibility of central etiology for her nausea especially with her positional symptoms and visual field issues. Dr. Negro has cleared for discharge. Repeat BUN 13 and creatinine 1.07. patient's daughter is concerned about her change in overall health and mental status since September when all her illnesses started. Patient appears to be somewhat paranoid today. Marinol decreased to 2.5 mg twice daily. 12/19: Patient has been seen by neurology. MRI showed mild diffuse age-related cerebral atrophy and moderate chronic small vessel ischemic change. Persistent right-sided paranasal sinus disease possibly acute sinusitis. Electrolytes are improved from yesterday. Attempted to determine when Marinol was started. It appears that was started at [facility] on her last hospitalization in November. Patient is able to state the city, month and year. 12/20: patient's mental status is slightly improved today. She is complaining of feeling that things are getting stuck in her esophagus. She was evaluated by speech therapy. GI has signed off but spoke with Dr. Guzman and she will reevaluate. Esophagram was ordered. IV fluids changed to saline lock and Lasix 1 ordered. Objective - Vital Signs Vital signs: Vital Signs Temp 98.0 F 12/20/16 07:00 Pulse 72 12/20/16 07:00 Resp 16 12/20/16 07:00 BP 119/58 12/20/16 07:00 Pulse Ox 97 12/20/16 07:00 Intake & Output 12/19/16 12/20/16 12/20/16 18:59 06:59 18:59 Intake Total 100 300 Output Total 300 400 Balance -200 -100 Weight 87.09 kg Intake: IV 300 Linezolid 600 mg In 300 Dextrose/Water 1 300ml. bag @ 150 mls/hr IV[facility] Q[facility] Rx#:[id number] Oral 100 Output: Urine 300 400 Other: Voiding Method Indwelling Catheter Indwelling Catheter Indwelling Catheter # Voids 1 - Exam General appearance: no average body habitus, cooperative, no disheveled, mild distress, no morbidly obese, no no acute distress, no obese, no severe distress , thin - EENT Eyes: no abnormal pupil, no anicteric sclerae, no disc margins sharp, no edentulous, no EOMI, no PERRLA, no fundus normal, no photophobia, no dentition normal, no poor dentition, no ptosis, no scleral icterus, normal appearance ENT: no hard of hearing, no hearing grossly normal, no NA/AT, normal oropharynx , no other, no pharyngeal erythema, no thrush, no tonsillar exudates, no tonsillar swelling Ears: bilateral: normal, bulging - Neck Neck: no lymphadenopathy, normal ROM, no other, no rigidity, no stridor, no thyromegaly Carotids: bilateral: upstroke normal, upstroke delayed Thyroid: bilateral: normal size - Respiratory Respiratory: bilateral: diminished, dullness, rales, rhonchi, wheezing - Cardiovascular Rhythm: regular Heart sounds: normal: S1, S2 Abnormal Heart Sounds: systolic murmur, S3 Gallop - Gastrointestinal Scar tissue from recent surgery and the midline with no sign of infection but had large keloid and area of old hematoma on it. General gastrointestinal: no absent bowel sounds, decreased bowel sounds, distended, no hepatomegaly, no hyperactive bowel sounds, normal bowel sounds, no organomegaly, no rigid, scaphoid, soft, no splenomegaly, tenderness, no umbilical hernia, no ventral hernia - Integumentary Integumentary: no calor, cellulitis, no cyanotic, no decreased turgor, no flushed, no jaundiced, no normal, no normal turgor, pale, rash, no ulcer - Neurologic Neurologic: CNII-XII intact - Musculoskeletal Musculoskeletal: gait normal, generalized weakness, strength equal bilaterally - Psychiatric Psychiatric: A&O x's 3, no appropriate affect, no intact judgment & insight - Labs CBC & Chem 7: 12/19/16 07:50 12/19/16 07:50 Assessment and Plan Plan: 1 metabolic encephalopathy secondary to infection, anemia, lower back pain, side effect medication along with UTI. Treat underlying disease. MRI as above. 2 sepsis with VRE UTI: With patient's current condition patient will be on IV antibiotics continue hydration watch symptoms closely repeat UA and wait for culture, with the any unusual infections specially with the resistant bacteria in the past will have patient seen infectious disease. 3 acute kidney injury most likely ATN with chronic kidney disease: Continue hydration repeat BUN/creatinine daily for the next few days. 4 recurrent abdominal pain with no significant abnormalities on CAT scan. 5 right-sided hip pain with no clear evidence of trauma recently with x-ray showing osteoarthrosis 6 recurrent anemia with blood transfusion different occasion last few weeks hemoglobin has been stable at this point continue to watch for any further recurrent bleed. 7 chronic edema: Has been on diuretics doing well. 8 A. fib with RVR with history of paroxysmal atrial fibrillation: Patient has been on Eliquis 5 mg twice a day along with metoprolol 100 mg daily and amiodarone 200 mg a day pulse rates under control currently. 9 hyperlipidemia: Has been on Lipitor. 10 lower back pain with worsening symptom will continue patient on smaller dose of hydrocodone or tramadol along with mild muscle relaxer. 11 recent history of hemicolectomy with complication: Patient still been watch by surgery. No obstruction this time. 12. metabolic acidosis. IV fluids changed to D5 half normal saline with KCl. 13.dysphagia with lack of appetite. Esophagram ordered. Dr. Guzman to really assess. CODE STATUS: Full code. Discharge plan: Return to [facility] Impression and plan of care have been directed as dictated by the signing physician. Mayi Lindsay nurse practitioner acting as scribe for signing physician. Time with Patient: Greater than 30
--- NOTE | 2016-12-20 17:45 | PN ---
Patient is seen for followup for acute kidney injury. Her renal function has improved significantly. Patient was maintained on IV fluids, which were decreased yesterday secondary to development of lower extremity edema. Currently patient is sitting up in bed. Her mentation has apparently improved since yesterday. Blood pressure is 119/58, heart rate 72 per minute. She is afebrile. EXAMINATION OF THE HEART: S1 and S2. EXAMINATION OF LUNGS: Decreased breath sounds in the bases. ABDOMEN: Soft, nontender. Examination of lower extremities shows edema 1+ bilaterally. PARTS FINISHER exam is grossly intact. Labs show sodium 139, potassium 4.4, serum creatinine down to 0.96. Hemoglobin at 8.8 g/dL. ASSESSMENT: 1. Acute kidney injury, prerenal, currently improved. 2. Decreased urine output. Continue to encourage increased oral intake. I will keep the IV fluids at KVO. We can use loop diuretics if needed down the road. 3. Mental status changes/hallucinations, currently improved. 4. Sepsis with VRE urinary tract infection. 5. Atrial fibrillation with rapid ventricular response with previous history of paroxysmal atrial fibrillation, maintained on Eliquis. PLAN: Keep the fluids at KVO. Encourage increased oral intake. Can use loop diuretics if needed if urine output remains low.
[2016-12-20] MEDS ORDERED: GLYCERIN ADULT SUPPOSITORY 1 EACH RECTAL STA (19:56)
--- NOTE | 2016-12-20 19:59 | P.PN ---
Subjective Patient now presents from [facility] to [facility] emergency center by EMS for dehydration and elevated creatinine. CAT scan of the brain showed cerebral atrophy with right-sided maxillary and ethmoid sinusitis and no change compared to prior. Chest x-ray shows no acute cardiopulmonary disease. On recent blood draw her BUN was 35 and creatinine 3.10 and repeat here is 39 and 3.50. Patient is complaining of pain all over especially in the back and the hips right more so than left. Apparently she has had falls at [facility]. Blood pressure was low with a heart rate of 47. Apparently patient has not been eating and drinking and had worsening confusion. Patient does complain of nausea without vomiting and complains of dizziness with movement. White count 6.7, hemoglobin 9.7. BUN 39 and creatinine 3.5. Urinalysis was turbid, blood trace, leukoesterase large, WBC 75, WBC clumps many, bacteria many. Urine drug screen was positive for marijuana and patient is on Marinol. Patient was started on Levaquin and admitted to the [facility] floor. Antibiotic was subsequently changed to Zyvox as her last urine culture done on November 24 was enterococcus gallinarum, multidrug resistant. Right hip x-ray was done that showed osteoarthrosis with no acute abnormality. CAT scan of the abdomen and pelvis without contrast has been done and report is pending. Patient has been seen by Dr. Penaloza for non-oliguric acute kidney injury. the nausea and retching are further improved. Still not eating. Patient's daughter is concerned. Relates that the mother's been ill since September with similar symptoms. Upper GI without obstruction with a history of stricture. Objective - Vital Signs Vital signs: Vital Signs Temp 97.5 F L 12/20/16 14:58 Pulse 90 12/20/16 14:58 Resp 16 12/20/16 15:50 BP 115/57 12/20/16 14:58 Pulse Ox 93 L 12/20/16 14:58 Intake & Output 12/20/16 12/20/16 12/21/16 06:59 18:59 06:59 Intake Total 300 Output Total 400 1100 Balance -100 -1100 Weight 87.09 kg Intake: IV 300 Linezolid 600 mg In 300 Dextrose/Water 1 300ml. bag @ 150 mls/hr IVPB Q[facility] Rx#:[id number] Output: Urine 400 1100 Other: Voiding Method Indwelling Catheter Indwelling Catheter - Exam en: This is a 76-year-old female. HEENT: Head is atraumatic, normocephalic. Pupils equal, round. Sclerae is anicteric. NECK: Supple. No JVD. No lymphadenopathy. No thyromegaly. LUNGS: Clear to auscultation. No wheezes or rhonchi. No intercostal retractions. HEART: Regular rate and rhythm. No murmur. ABDOMEN: Soft. Bowel sounds are present. No masses. Generalized tenderness. EXTREMITIES: Positive bilateral pedal edema. No calf tenderness. NEUROLOGICAL: Patient is awake, alert and oriented x1 - Labs CBC & Chem 7: 12/19/16 07:50 12/19/16 07:50 Labs: Laboratory Results WBC 6.0 k/uL (3.8-10.6) 12/19/16 07:50 RBC 2.80 m/uL (3.80-5.40) L 12/19/16 07:50 Hgb 8.8 gm/dL (11.4-16.0) L 12/19/16 07:50 Hct 27.9 % (34.0-46.0) L 12/19/16 07:50 MCV 99.6 fL (80.0-100.0) 12/19/16 07:50 MCH 31.5 pg (25.0-35.0) 12/19/16 07:50 MCHC 31.6 g/dL (31.0-37.0) 12/19/16 07:50 RDW 17.3 % (11.5-15.5) H 12/19/16 07:50 Plt Count 165 k/uL (150-450) 12/19/16 07:50 Neutrophils % 65 % 12/14/16 20:54 Lymphocytes % 28 % 12/14/16 20:54 Monocytes % 5 % 12/14/16 20:54 Eosinophils % 1 % 12/14/16 20:54 Basophils % 0 % 12/14/16 20:54 Neutrophils # 4.3 k/uL (1.3-7.7) 12/14/16 20:54 Lymphocytes # 1.9 k/uL (1.0-4.8) 12/14/16 20:54 Monocytes # 0.4 k/uL (0-1.0) 12/14/16 20:54 Eosinophils # 0.1 k/uL (0-0.7) 12/14/16 20:54 Basophils # 0.0 k/uL (0-0.2) 12/14/16 20:54 Hypochromasia Slight 12/19/16 07:50 Anisocytosis Slight 12/19/16 07:50 Macrocytosis Slight 12/19/16 07:50 PT 15.3 sec (9.0-12.0) H 12/14/16 20:54 INR 1.6 (<1.1) 12/14/16 20:54 APTT 28.0 sec (22.0-30.0) 12/14/16 20:54 Sodium 139 mmol/L (137-145) 12/19/16 07:50 Potassium 4.4 mmol/L (3.5-5.1) 12/19/16 07:50 Chloride 114 mmol/L (98-107) H 12/19/16 07:50 Carbon Dioxide 18 mmol/L (22-30) L 12/19/16 07:50 Anion Gap 7 mmol/L 12/19/16 07:50 BUN 10 mg/dL (7-17) 12/19/16 07:50 Creatinine 0.96 mg/dL (0.52-1.04) 12/19/16 07:50 Est GFR (MDRD) Af Amer >60 (>60 ml/min/1.73 sqM) 12/19/16 07:50 Est GFR (MDRD) Non-Af 56 (>60 ml/min/1.73 sqM) 12/19/16 07:50 Glucose 103 mg/dL (74-99) H 12/19/16 07:50 POC Glucose (mg/dL) 117 mg/dL (75-99) H 12/14/16 20:56 POC Glu Bed Setter ID Fifi Garibay 12/14/16 20:56 Plasma Lactic Acid Deion 1.9 mmol/L (0.7-2.0) 12/14/16 20:54 Calcium 7.7 mg/dL (8.4-10.2) L 12/19/16 07:50 Magnesium 1.7 mg/dL (1.6-2.3) 12/16/16 19:19 Iron 33 ug/dL (37-170) L 12/14/16 20:54 TIBC 155 ug/dL (265-497) L 12/14/16 20:54 % Saturation 21.3 % (20-50) 12/14/16 20:54 Ferritin 298 ng/mL (11-264) H 12/14/16 20:54 Total Bilirubin 1.1 mg/dL (0.2-1.3) 12/14/16 20:54 AST 30 U/L (14-36) 12/14/16 20:54 ALT 42 U/L (9-52) 12/14/16 20:54 Alkaline Phosphatase 82 U/L (38-126) 12/14/16 20:54 Total Creatine Kinase 76 U/L (30-135) 12/14/16 20:54 CK-MB (CK-2) 0.6 ng/mL (0.0-2.4) 12/14/16 20:54 CK-MB (CK-2) Rel Index 0.8 12/14/16 20:54 Troponin I 0.022 ng/mL (0.000-0.034) 12/14/16 20:54 Total Protein 5.8 g/dL (6.3-8.2) L 12/14/16 20:54 Albumin 2.7 g/dL (3.5-5.0) L 12/14/16 20:54 Urine Color Yellow 12/14/16 20:52 Urine Appearance Turbid (Clear) H 12/14/16 20:52 Urine pH 5.0 (5.0-8.0) 12/14/16 20:52 Ur Specific Manson 1.014 (1.001-1.035) 12/14/16 20:52 Urine Protein 1+ (Negative) H 12/14/16 20:52 Urine Glucose (UA) Negative (Negative) 12/14/16 20:52 Urine Ketones Negative (Negative) 12/14/16 20:52 Urine Blood Trace (Negative) H 12/14/16 20:52 Urine Nitrate Negative (Negative) 12/14/16 20:52 Urine Bilirubin 1+ (Negative) H 12/14/16 20:52 Urine Urobilinogen 2.0 mg/dL (<2.0) 12/14/16 20:52 Ur Leukocyte Esterase Large (Negative) H 12/14/16 20:52 Urine WBC 75 /hpf (0-5) H 12/14/16 20:52 Urine WBC Clumps Many /hpf (None) H 12/14/16 20:52 Ur Squamous Epith Cells 2 /hpf (0-4) 12/14/16 20:52 Urine Bacteria Many /hpf (None) H 12/14/16 20:52 Hyaline Casts 631 /lpf (0-2) H 12/14/16 20:52 Urine Opiates Screen Not Detected (NotDetected) 12/14/16 20:52 Ur Oxycodone Screen Not Detected (NotDetected) 12/14/16 20:52 Urine Methadone Screen Not Detected (NotDetected) 12/14/16 20:52 Ur Propoxyphene Screen Not Detected (NotDetected) 12/14/16 20:52 Ur Barbiturates Screen Not Detected (NotDetected) 12/14/16 20:52 U Tricyclic Antidepress Not Detected (NotDetected) 12/14/16 20:52 Ur Phencyclidine Scrn Not Detected (NotDetected) 12/14/16 20:52 Ur Amphetamines Screen Not Detected (NotDetected) 12/14/16 20:52 U Methamphetamines Scrn Not Detected (NotDetected) 12/14/16 20:52 U Benzodiazepines Scrn Not Detected (NotDetected) 12/14/16 20:52 Urine Cocaine Screen Not Detected (NotDetected) 12/14/16 20:52 U Marijuana (THC) Screen Detected (NotDetected) H 12/14/16 20:52 Microbiology 12/14/16 21:06 Blood Blood Culture - Preliminary No Growth after 120 hours 12/15/16 13:15 Urine,Catheterized Urine Culture - Final - Imaging and Cardiology Upper GI reviewed without evidence of obstruction or stricture Assessment and Plan (1) Acute renal failure Narrative/Plan: 76-year-old woman with multiple medical troubles presents to Hospital acutely ill. Has acute renal failure showing some improvement. Urinary infection. Recent urine infection with vancomycin-resistant enterococci. Currently receiving Zyvox and being monitored. The significant somewhat better today with hydration and control of her nausea. Does have much less nausea and emesis today. She over still quite miserable. Receiving anxiolytics and some pain control. Laboratories being followed. Her nutritional supplementation when able. Patient's daughter was present. Relates that in September before the mother became ill. She was independent. Driving. Doing her own shopping preparing her own meals. Constantly they are quite concerned about her drastic overall decline. To be seen by gastroenterology. Discussed with the primary team. Neurologic consult performed, work up negative so far. Marinol to be held Discontinue Zyvox negative urine cultures, no change since she's been off antibiotic therapy. May have a slight improvement of her status since Marinol has been held. Status: Acute (2) Altered mental status Status: Acute (3) Urinary tract infection Status: Acute
[2016-12-20] MEDS: ATORVASTATIN 10 MG TAB PO SCH (20:24)
[2016-12-20] MEDS: CHOLECALCIFEROL 1,000 UNIT TAB PO SCH (20:24)
[2016-12-20] MEDS: MELATONIN 5 MG TABLET PO SCH (20:24)
[2016-12-21] MEDS: SENNOSIDES-DOCUSATE SODIUM 1 EACH TAB PO SCH ×2 (08:12→22:42)
[2016-12-21] MEDS: AMIODARONE 200 MG TAB PO SCH (08:12)
[2016-12-21] MEDS: DRONABINOL 2.5 MG CAP PO SCH ×2 (08:12→17:57)
[2016-12-21] MEDS: APIXABAN 5 MG TAB PO SCH ×2 (08:12→22:42)
[2016-12-21] MEDS: PANTOPRAZOLE 40 MG TABLET PO SCH (08:12)
[2016-12-21] MEDS: METOPROLOL SUCCINATE (ER) 50 MG TAB.ER.24H PO SCH (08:13)
--- NOTE | 2016-12-21 11:22 | P.PN ---
Subjective Patient is seen in follow-up for acute kidney injury. Renal function continues to improve with creatinine of 0.96 as of December 19. Currently resting in bed. No vomiting or diarrhea. Oral intake is fair. Has a Jewell catheter in place and is nonoliguric. Vital signs are stable. General: The patient appeared well nourished and normally developed. HEENT: Head exam is unremarkable. Neck is without jugular venous distension. LUNGS: Lungs are clear to auscultation and percussion. Breath sounds decreased. HEART: Rate and Rhythm are regular. First and second heart sounds normal. No murmurs, rubs or gallops. ABDOMEN: Abdominal exam reveals normal bowel sounds. Non-tender and non- distended. No evidence of peritonitis. EXTREMITITES: No clubbing, cyanosis, or edema. Objective - Vital Signs Vital signs: Vital Signs Temp 97.8 F 12/21/16 07:00 Pulse 67 12/21/16 07:00 Resp 18 12/21/16 07:00 BP 122/57 12/21/16 07:00 Pulse Ox 98 12/21/16 07:00 Intake & Output 12/20/16 12/21/16 12/21/16 18:59 06:59 18:59 Intake Total 200 Output Total 1100 2800 350 Balance -1100 -2600 -350 Weight 87.09 kg Intake: Oral 200 Output: Urine 1100 2800 350 Straight 350 Other: Voiding Method Indwelling Catheter Indwelling Catheter Indwelling Catheter - Labs CBC & Chem 7: 12/19/16 07:50 12/19/16 07:50 Assessment and Plan Plan: Assessment: #1. Nonoliguric acute kidney injury mostly prerenal in nature secondary to poor oral intake and vomiting. Improving. Creatinine was 3.5 on admission and down to 0.96 as of December 18. #2. Hyperchloremic metabolic acidosis secondary to IV fluids. #3. Recent urinary tract infection with urine culture positive for enterococcus status post antibiotics. #4. Anemia. Iron replete. Plan: Hep-Lock IV fluids. Encourage oral intake. Avoid nephrotoxic agents and hypotensive episodes. Discontinue Jewell catheter and monitor serial postvoid residuals.
[2016-12-21] MEDS: CYANOCOBALAMIN 500 MCG TAB PO SCH (11:56)
[2016-12-21] MEDS: FERROUS SULFATE 325 MG TAB PO SCH (11:56)
--- NOTE | 2016-12-21 12:34 | P.PN ---
Subjective Principal diagnosis: Anorexia nausea vomiting. Reevaluated in regards to dysphagia nausea vomiting poor appetite. Nursing reports minimal oral intake. Upper GI reported no mass or stricture. Patient states "I'm just not hungry". Objective - Vital Signs Vital signs: Vital Signs Temp 97.8 F 12/21/16 07:00 Pulse 67 12/21/16 07:00 Resp 18 12/21/16 07:00 BP 122/57 12/21/16 07:00 Pulse Ox 98 12/21/16 07:00 Intake & Output 12/20/16 12/21/16 12/21/16 18:59 06:59 18:59 Intake Total 200 Output Total 1100 2800 350 Balance -1100 -2600 -350 Weight 87.09 kg Intake: Oral 200 Output: Urine 1100 2800 350 Straight 350 Other: Voiding Method Indwelling Catheter Indwelling Catheter Indwelling Catheter - Exam General appearance: The patient is alert, oriented, in no acute distress. Flat affect. HET: Head is normocephalic and atraumatic. Pupils are equal and reactive. Oropharynx is clear without lesions. Neck: Supple without lymphadenopathy. Trachea midline. Heart: S1 S2. Regular rate and rhythm. Lungs: No crackles or wheezes are heard. Abdomen: Soft, nontender, nondistended with bowel sounds. No peritoneal signs. No palpable organomegaly or masses. Extremities: Normal skin color and turgor. No cyanosis, rash, ulceration, clubbing, or edema. Radial and pedal pulses are 2/4 bilaterally. Neurological: No focal deficits. Strength and sensation are grossly intact. - Labs CBC & Chem 7: 12/19/16 07:50 12/19/16 07:50 Assessment and Plan Plan: 1. Dysphagia, anorexia, nausea, vomiting. Nausea vomiting improved however anorexia still persistent. Barium esophagram reported no evidence of large obstructing mass or stricture. Etiology of anorexia is unclear possibly psychological. 2. Nonoliguric acute kidney injury prerenal. 3. Sepsis with VRE UTI. 4. Metabolic encephalopathy. 5. History of atrial fibrillation. Recommendations: 1. Dr. Guzman recommends supportive measures. EGD evaluation not recommended at this time. We'll follow as needed. Assessment and plan of care discussed with Dr. Guzman.
--- NOTE | 2016-12-21 14:28 | P.PN ---
Subjective 76-year-old female was hospitalized in to to 11/25/2016 for acute blood loss anemia with hemoglobin of 5.0 with intractable nausea with no vomiting she had recent hemicolectomy at [facility] she was hospitalized had blood transfusion her hemoglobin was stabilized and ended up going back to [facility] which she seen Dr. Quintanilla a regular basis. Earlier last year in September patient was transferred to [facility] for severe abdominal pain and severe anemia and end up going for exploratory laparotomy with SVR for ischemic bowel on 09/29/2016 and return to the OR for closure Handswen anastomosis 2 at [facility] on 09/30/2016. She had 2 different occasions in October when she presented to [facility] complaining of nausea and vomiting along with no bowel movement for several day she ended up going for EGD on November 27 was negative and colonoscopy was scheduled as an outpatient hemoglobin was pain above 7 did not require any further transfusion and did well going back to [facility] her anticoagulation was resumed was doing better with it. Patient presented to [facility] in 12/14/2016 with change mental status worsening confusion dehydration significantly elevated creatinine BUN with stage III chronic kidney disease along with acute kidney injury possible ATN. Patient found to have UTI as well was started on IV antibiotics with Levaquin hydration and admitted to the hospital. Surprisingly continue complain of worsening abdominal pain along with worsening lower back pain and right sided hip pain with no recent injury. 12/16: Patient is continued on IV fluids at 100 mL per hour. Repeat BUN is 24 1.77. Patient's nausea is better but continues and scopolamine patch ordered. Patient has had very little urine output and Jewell catheter has been ordered. 12/17: Patient status appears to be much improved but she does continue to have concerns about nausea. Consult is in place with GI. Nephrology is following for acute kidney injury and continued on IV fluids at 100 mL per hour. She is continued on Zyvox for VRE urinary tract infection. Anticipate discharge back to long-term on Sunday or Sunday. 12/18: Patient has been seen by Dr. Gonzalez with possibility of central etiology for her nausea especially with her positional symptoms and visual field issues. Dr. Negro has cleared for discharge. Repeat BUN 13 and creatinine 1.07. patient's daughter is concerned about her change in overall health and mental status since September when all her illnesses started. Patient appears to be somewhat paranoid today. Marinol decreased to 2.5 mg twice daily. 12/19: Patient has been seen by neurology. MRI showed mild diffuse age-related cerebral atrophy and moderate chronic small vessel ischemic change. Persistent right-sided paranasal sinus disease possibly acute sinusitis. Electrolytes are improved from yesterday. Attempted to determine when Marinol was started. It appears that was started at [facility] on her last hospitalization in November. Patient is able to state the city, month and year. 12/20: patient's mental status is slightly improved today. She is complaining of feeling that things are getting stuck in her esophagus. She was evaluated by speech therapy. GI has signed off but spoke with Dr. Guzman and she will reevaluate. Esophagram was ordered. IV fluids changed to saline lock and Lasix 1 ordered. 12/21: Patient has been seen by Dr. Shell. Esophagram was negative with no plan for any intervention at this time. Plan to encourage oral intake, dietitian consult for protein supplement BUN 10 and creatinine 0.96. Nephrology is following. Hemoglobin is stable at 8.8. Anticipate discharge back to [facility] tomorrow. Objective - Vital Signs Vital signs: Vital Signs Temp 97.8 F 12/21/16 07:00 Pulse 67 12/21/16 07:00 Resp 18 12/21/16 07:00 BP 122/57 12/21/16 07:00 Pulse Ox 98 12/21/16 07:00 Intake & Output 12/20/16 12/21/16 12/21/16 18:59 06:59 18:59 Intake Total 200 Output Total 1100 2800 350 Balance -1100 -2600 -350 Weight 87.09 kg Intake: Oral 200 Output: Urine 1100 2800 350 Straight 350 Other: Voiding Method Indwelling Catheter Indwelling Catheter Indwelling Catheter - Exam General appearance: no average body habitus, cooperative, no disheveled, mild distress, no morbidly obese, no no acute distress, no obese, no severe distress , thin - EENT Eyes: no abnormal pupil, no anicteric sclerae, no disc margins sharp, no edentulous, no EOMI, no PERRLA, no fundus normal, no photophobia, no dentition normal, no poor dentition, no ptosis, no scleral icterus, normal appearance ENT: no hard of hearing, no hearing grossly normal, no NA/AT, normal oropharynx , no other, no pharyngeal erythema, no thrush, no tonsillar exudates, no tonsillar swelling Ears: bilateral: normal, bulging - Neck Neck: no lymphadenopathy, normal ROM, no other, no rigidity, no stridor, no thyromegaly Carotids: bilateral: upstroke normal, upstroke delayed Thyroid: bilateral: normal size - Respiratory Respiratory: bilateral: diminished, dullness, rales, rhonchi, wheezing - Cardiovascular Rhythm: regular Heart sounds: normal: S1, S2 Abnormal Heart Sounds: systolic murmur, S3 Gallop - Gastrointestinal Scar tissue from recent surgery and the midline with no sign of infection but had large keloid and area of old hematoma on it. General gastrointestinal: no absent bowel sounds, decreased bowel sounds, distended, no hepatomegaly, no hyperactive bowel sounds, normal bowel sounds, no organomegaly, no rigid, scaphoid, soft, no splenomegaly, tenderness, no umbilical hernia, no ventral hernia - Integumentary Integumentary: no calor, cellulitis, no cyanotic, no decreased turgor, no flushed, no jaundiced, no normal, no normal turgor, pale, rash, no ulcer - Neurologic Neurologic: CNII-XII intact - Musculoskeletal Musculoskeletal: gait normal, generalized weakness, strength equal bilaterally - Psychiatric Psychiatric: A&O x's 3, no appropriate affect, no intact judgment & insight - Labs CBC & Chem 7: 12/19/16 07:50 12/19/16 07:50 Assessment and Plan Plan: 1 metabolic encephalopathy secondary to infection, anemia, lower back pain, side effect medication along with UTI. Treat underlying disease. MRI as above. 2 sepsis with VRE UTI: With patient's current condition patient will be on IV antibiotics continue hydration watch symptoms closely repeat UA and wait for culture, with the any unusual infections specially with the resistant bacteria in the past will have patient seen infectious disease. 3 acute kidney injury most likely ATN with chronic kidney disease: Continue hydration repeat BUN/creatinine daily for the next few days. 4 recurrent abdominal pain with no significant abnormalities on CAT scan. 5 right-sided hip pain with no clear evidence of trauma recently with x-ray showing osteoarthrosis 6 recurrent anemia with blood transfusion different occasion last few weeks hemoglobin has been stable at this point continue to watch for any further recurrent bleed. 7 chronic edema: Has been on diuretics doing well. 8 A. fib with RVR with history of paroxysmal atrial fibrillation: Patient has been on Eliquis 5 mg twice a day along with metoprolol 100 mg daily and amiodarone 200 mg a day pulse rates under control currently. 9 hyperlipidemia: Has been on Lipitor. 10 lower back pain with worsening symptom will continue patient on smaller dose of hydrocodone or tramadol along with mild muscle relaxer. 11 recent history of hemicolectomy with complication: Patient still been watch by surgery. No obstruction this time. 12. metabolic acidosis. IV fluids changed to D5 half normal saline with KCl. 13.dysphagia with lack of appetite. Esophagram ordered. Dr. Guzman to really assess. CODE STATUS: Full code. Discharge plan: Return to [facility] Impression and plan of care have been directed as dictated by the signing physician. Mayi Lindsay nurse practitioner acting as scribe for signing physician. Time with Patient: Greater than 30
--- NOTE | 2016-12-21 22:22 | P.PN ---
Subjective Patient now presents from [facility] to [facility] emergency center by EMS for dehydration and elevated creatinine. CAT scan of the brain showed cerebral atrophy with right-sided maxillary and ethmoid sinusitis and no change compared to prior. Chest x-ray shows no acute cardiopulmonary disease. On recent blood draw her BUN was 35 and creatinine 3.10 and repeat here is 39 and 3.50. Patient is complaining of pain all over especially in the back and the hips right more so than left. Apparently she has had falls at [facility]. Blood pressure was low with a heart rate of 47. Apparently patient has not been eating and drinking and had worsening confusion. Patient does complain of nausea without vomiting and complains of dizziness with movement. White count 6.7, hemoglobin 9.7. BUN 39 and creatinine 3.5. Urinalysis was turbid, blood trace, leukoesterase large, WBC 75, WBC clumps many, bacteria many. Urine drug screen was positive for marijuana and patient is on Marinol. Patient was started on Levaquin and admitted to the [facility] floor. Antibiotic was subsequently changed to Zyvox as her last urine culture done on November 24 was enterococcus gallinarum, multidrug resistant. Right hip x-ray was done that showed osteoarthrosis with no acute abnormality. CAT scan of the abdomen and pelvis without contrast has been done and report is pending. Patient has been seen by Dr. Penaloza for non-oliguric acute kidney injury. the nausea and retching are further improved. Still not eating. Patient's daughter is concerned. Relates that the mother's been ill since September with similar symptoms. Upper GI without obstruction with a history of stricture. Objective - Vital Signs Vital signs: Vital Signs Temp 97.9 F 12/21/16 15:00 Pulse 67 12/21/16 15:00 Resp 19 12/21/16 15:00 BP 153/85 12/21/16 15:00 Pulse Ox 100 12/21/16 15:00 Intake & Output 12/21/16 12/21/16 12/22/16 06:59 18:59 06:59 Intake Total 200 Output Total 2800 350 Balance -2600 -350 Intake: Oral 200 Output: Urine 2800 350 Straight 350 Other: Voiding Method Indwelling Catheter Indwelling Catheter # Voids 0 - Exam en: This is a 76-year-old female. HEENT: Head is atraumatic, normocephalic. Pupils equal, round. Sclerae is anicteric. NECK: Supple. No JVD. No lymphadenopathy. No thyromegaly. LUNGS: Clear to auscultation. No wheezes or rhonchi. No intercostal retractions. HEART: Regular rate and rhythm. No murmur. ABDOMEN: Soft. Bowel sounds are present. No masses. Generalized tenderness. EXTREMITIES: Positive bilateral pedal edema. No calf tenderness. NEUROLOGICAL: Patient is awake, alert and oriented x1 - Labs CBC & Chem 7: 12/19/16 07:50 12/19/16 07:50 Labs: Laboratory Results WBC 6.0 k/uL (3.8-10.6) 12/19/16 07:50 RBC 2.80 m/uL (3.80-5.40) L 12/19/16 07:50 Hgb 8.8 gm/dL (11.4-16.0) L 12/19/16 07:50 Hct 27.9 % (34.0-46.0) L 12/19/16 07:50 MCV 99.6 fL (80.0-100.0) 12/19/16 07:50 MCH 31.5 pg (25.0-35.0) 12/19/16 07:50 MCHC 31.6 g/dL (31.0-37.0) 12/19/16 07:50 RDW 17.3 % (11.5-15.5) H 12/19/16 07:50 Plt Count 165 k/uL (150-450) 12/19/16 07:50 Neutrophils % 65 % 12/14/16 20:54 Lymphocytes % 28 % 12/14/16 20:54 Monocytes % 5 % 12/14/16 20:54 Eosinophils % 1 % 12/14/16 20:54 Basophils % 0 % 12/14/16 20:54 Neutrophils # 4.3 k/uL (1.3-7.7) 12/14/16 20:54 Lymphocytes # 1.9 k/uL (1.0-4.8) 12/14/16 20:54 Monocytes # 0.4 k/uL (0-1.0) 12/14/16 20:54 Eosinophils # 0.1 k/uL (0-0.7) 12/14/16 20:54 Basophils # 0.0 k/uL (0-0.2) 12/14/16 20:54 Hypochromasia Slight 12/19/16 07:50 Anisocytosis Slight 12/19/16 07:50 Macrocytosis Slight 12/19/16 07:50 PT 15.3 sec (9.0-12.0) H 12/14/16 20:54 INR 1.6 (<1.1) 12/14/16 20:54 APTT 28.0 sec (22.0-30.0) 12/14/16 20:54 Sodium 139 mmol/L (137-145) 12/19/16 07:50 Potassium 4.4 mmol/L (3.5-5.1) 12/19/16 07:50 Chloride 114 mmol/L (98-107) H 12/19/16 07:50 Carbon Dioxide 18 mmol/L (22-30) L 12/19/16 07:50 Anion Gap 7 mmol/L 12/19/16 07:50 BUN 10 mg/dL (7-17) 12/19/16 07:50 Creatinine 0.96 mg/dL (0.52-1.04) 12/19/16 07:50 Est GFR (MDRD) Af Amer >60 (>60 ml/min/1.73 sqM) 12/19/16 07:50 Est GFR (MDRD) Non-Af 56 (>60 ml/min/1.73 sqM) 12/19/16 07:50 Glucose 103 mg/dL (74-99) H 12/19/16 07:50 POC Glucose (mg/dL) 117 mg/dL (75-99) H 12/14/16 20:56 POC Glu Tow Feeder ID Fifi Garibay 12/14/16 20:56 Plasma Lactic Acid Deion 1.9 mmol/L (0.7-2.0) 12/14/16 20:54 Calcium 7.7 mg/dL (8.4-10.2) L 12/19/16 07:50 Magnesium 1.7 mg/dL (1.6-2.3) 12/16/16 19:19 Iron 33 ug/dL (37-170) L 12/14/16 20:54 TIBC 155 ug/dL (265-497) L 12/14/16 20:54 % Saturation 21.3 % (20-50) 12/14/16 20:54 Ferritin 298 ng/mL (11-264) H 12/14/16 20:54 Total Bilirubin 1.1 mg/dL (0.2-1.3) 12/14/16 20:54 AST 30 U/L (14-36) 12/14/16 20:54 ALT 42 U/L (9-52) 12/14/16 20:54 Alkaline Phosphatase 82 U/L (38-126) 12/14/16 20:54 Total Creatine Kinase 76 U/L (30-135) 12/14/16 20:54 CK-MB (CK-2) 0.6 ng/mL (0.0-2.4) 12/14/16 20:54 CK-MB (CK-2) Rel Index 0.8 12/14/16 20:54 Troponin I 0.022 ng/mL (0.000-0.034) 12/14/16 20:54 Total Protein 5.8 g/dL (6.3-8.2) L 12/14/16 20:54 Albumin 2.7 g/dL (3.5-5.0) L 12/14/16 20:54 Urine Color Yellow 12/14/16 20:52 Urine Appearance Turbid (Clear) H 12/14/16 20:52 Urine pH 5.0 (5.0-8.0) 12/14/16 20:52 Ur Specific [place] 1.014 (1.001-1.035) 12/14/16 20:52 Urine Protein 1+ (Negative) H 12/14/16 20:52 Urine Glucose (UA) Negative (Negative) 12/14/16 20:52 Urine Ketones Negative (Negative) 12/14/16 20:52 Urine Blood Trace (Negative) H 12/14/16 20:52 Urine Nitrate Negative (Negative) 12/14/16 20:52 Urine Bilirubin 1+ (Negative) H 12/14/16 20:52 Urine Urobilinogen 2.0 mg/dL (<2.0) 12/14/16 20:52 Ur Leukocyte Esterase Large (Negative) H 12/14/16 20:52 Urine WBC 75 /hpf (0-5) H 12/14/16 20:52 Urine WBC Clumps Many /hpf (None) H 12/14/16 20:52 Ur Squamous Epith Cells 2 /hpf (0-4) 12/14/16 20:52 Urine Bacteria Many /hpf (None) H 12/14/16 20:52 Hyaline Casts 631 /lpf (0-2) H 12/14/16 20:52 Urine Opiates Screen Not Detected (NotDetected) 12/14/16 20:52 Ur Oxycodone Screen Not Detected (NotDetected) 12/14/16 20:52 Urine Methadone Screen Not Detected (NotDetected) 12/14/16 20:52 Ur Propoxyphene Screen Not Detected (NotDetected) 12/14/16 20:52 Ur Barbiturates Screen Not Detected (NotDetected) 12/14/16 20:52 U Tricyclic Antidepress Not Detected (NotDetected) 12/14/16 20:52 Ur Phencyclidine Scrn Not Detected (NotDetected) 12/14/16 20:52 Ur Amphetamines Screen Not Detected (NotDetected) 12/14/16 20:52 U Methamphetamines Scrn Not Detected (NotDetected) 12/14/16 20:52 U Benzodiazepines Scrn Not Detected (NotDetected) 12/14/16 20:52 Urine Cocaine Screen Not Detected (NotDetected) 12/14/16 20:52 U Marijuana (THC) Screen Detected (NotDetected) H 12/14/16 20:52 Microbiology 12/14/16 21:06 Blood Blood Culture - Final No Growth after 144 hours 12/15/16 13:15 Urine,Catheterized Urine Culture - Final Assessment and Plan (1) Acute renal failure Narrative/Plan: 76-year-old woman with multiple medical troubles presents to Hospital acutely ill. Has acute renal failure showing some improvement. Urinary infection. Recent urine infection with vancomycin-resistant enterococci. Currently receiving Zyvox and being monitored. The significant somewhat better today with hydration and control of her nausea. Does have much less nausea and emesis today. She over still quite miserable. Receiving anxiolytics and some pain control. Laboratories being followed. Her nutritional supplementation when able. Patient's daughter was present. Relates that in September before the mother became ill. She was independent. Driving. Doing her own shopping preparing her own meals. Constantly they are quite concerned about her drastic overall decline. To be seen by gastroenterology. Discussed with the primary team. Neurologic consult performed, work up negative so far. Marinol to be held Discontinue Zyvox negative urine cultures, no change since she's been off antibiotic therapy. There has been a improvement of her status since Marinol has been held. The still not doing well overall. We'll not need anabolic therapy or discharge Will go to extended care tomorrow for rehab. Status: Acute (2) Altered mental status Status: Acute (3) Urinary tract infection Status: Acute
[2016-12-21] MEDS: ATORVASTATIN 10 MG TAB PO SCH (22:41)
[2016-12-21] MEDS: CHOLECALCIFEROL 1,000 UNIT TAB PO SCH (22:42)
[2016-12-21] MEDS: MELATONIN 5 MG TABLET PO SCH (22:42)
[2016-12-22] MEDS: AMIODARONE 200 MG TAB PO SCH (08:04)
[2016-12-22] MEDS: APIXABAN 5 MG TAB PO SCH ×2 (08:04→19:57)
[2016-12-22] MEDS: METOPROLOL SUCCINATE (ER) 50 MG TAB.ER.24H PO SCH (08:04)
[2016-12-22] MEDS: PANTOPRAZOLE 40 MG TABLET PO SCH (08:04)
[2016-12-22] MEDS: DRONABINOL 2.5 MG CAP PO SCH (08:09)
[2016-12-22] MEDS: SENNOSIDES-DOCUSATE SODIUM 1 EACH TAB PO SCH ×2 (08:09→19:58)
[2016-12-22] MEDS: ONDANSETRON 4 MG/2 ML VIAL IVP PRN ×3 (08:09→21:47)
--- NOTE | 2016-12-22 09:33 | P.PN ---
Subjective Patient is seen in follow-up for acute kidney injury. Renal function improved with creatinine of 0.96 as of December 19. Currently resting in bed. No vomiting or diarrhea. Oral intake is poor. Has a Jewell catheter (reinserted due to urinary retention) in place and is nonoliguric. Vital signs are stable. General: The patient appeared well nourished and normally developed. HEENT: Head exam is unremarkable. Neck is without jugular venous distension. LUNGS: Lungs are clear to auscultation and percussion. Breath sounds decreased. HEART: Rate and Rhythm are regular. First and second heart sounds normal. No murmurs, rubs or gallops. ABDOMEN: Abdominal exam reveals normal bowel sounds. Non-tender and non- distended. No evidence of peritonitis. EXTREMITITES: Trace edema. Objective - Vital Signs Vital signs: Vital Signs Temp 97.2 F L 12/22/16 07:00 Pulse 66 12/22/16 07:00 Resp 17 12/22/16 07:00 BP 144/67 12/22/16 07:00 Pulse Ox 97 12/22/16 07:00 Intake & Output 12/21/16 12/22/16 12/22/16 18:59 06:59 18:59 Intake Total 0 Output Total 350 865 Balance -350 -865 Intake: Oral 0 Output: Urine 350 590 Straight 350 275 Post Void Residual 275 Other: Voiding Method Indwelling Catheter Indwelling Catheter # Voids 0 0 - Labs CBC & Chem 7: 12/19/16 07:50 12/19/16 07:50 Assessment and Plan Plan: Assessment: #1. Nonoliguric acute kidney injury mostly prerenal in nature secondary to poor oral intake and vomiting. Improving. Creatinine was 3.5 on admission and down to 0.96 as of December 19. #2. Hyperchloremic metabolic acidosis secondary to IV fluids. #3. Recent urinary tract infection with urine culture positive for enterococcus status post antibiotics. #4. Anemia. Iron replete. Plan: Check BMP today. Encourage oral intake. Avoid nephrotoxic agents and hypotensive episodes. Maintain Jewell catheter for now. Will resume IV fluids if renal function worsens.
[2016-12-22 10:23] LABS: Anion Gap 7 mmol/L; Blood Urea Nitrogen 11 mg/dL (7-17); Calcium 7.9 mg/dL (8.4-10.2); Carbon Dioxide 23 mmol/L (22-30); Chloride 110 mmol/L (98-107); Glucose 75 mg/dL (74-99); Non-African American GFR(MDRD) >60 (>60 ml/min/1.73 sqM); Potassium 3.4 mmol/L (3.5-5.1); Sodium 140 mmol/L (137-145)
[2016-12-22] MEDS: CYANOCOBALAMIN 500 MCG TAB PO SCH (11:27)
[2016-12-22] MEDS: FERROUS SULFATE 325 MG TAB PO SCH (11:27)
[2016-12-22] MEDS: POTASSIUM CHLORIDE 20 MEQ, LIDOCAINE 2% INJ 20 MG in SODIUM CHLORIDE 0.9% 100 ML IVPB SCH ×2 (12:34→14:30)
[2016-12-22] MEDS: SODIUM CHLORIDE 0.9% 1,000 ML IV SCH (14:31)
[2016-12-22] MEDS ORDERED: BISACODYL 10 MG SUPP RECTAL STA (14:48)
--- NOTE | 2016-12-22 15:44 | XR ---
Abdomen HISTORY: Pain and vomiting Frontal view of the abdomen submitted and correlated to prior 28 September 2016, upper GI 20 December 201 7, CT abdomen pelvis 15 December 2016 There is contrast within the distribution of the colon. Lung bases are clear. No pneumoperitoneum or bowel obstruction. Phleboliths present within the pelvis. IMPRESSION: Nonobstructive bowel gas pattern.
--- NOTE | 2016-12-22 16:07 | P.PN ---
Subjective 76-year-old female was hospitalized in to to 11/25/2016 for acute blood loss anemia with hemoglobin of 5.0 with intractable nausea with no vomiting she had recent hemicolectomy at [facility] she was hospitalized had blood transfusion her hemoglobin was stabilized and ended up going back to [facility] on [place] which she seen Dr. Quintanilla a regular basis. Earlier last year in September patient was transferred to [facility] for severe abdominal pain and severe anemia and end up going for exploratory laparotomy with SVR for ischemic bowel on 09/29/2016 and return to the OR for closure Handswen anastomosis 2 at [facility] on 09/30/2016. She had 2 different occasions in October when she presented to [facility] complaining of nausea and vomiting along with no bowel movement for several day she ended up going for EGD on November 27 was negative and colonoscopy was scheduled as an outpatient hemoglobin was pain above 7 did not require any further transfusion and did well going back to [facility] [place] her anticoagulation was resumed was doing better with it. Patient presented to [facility] in 12/14/2016 with change mental status worsening confusion dehydration significantly elevated creatinine BUN with stage III chronic kidney disease along with acute kidney injury possible ATN. Patient found to have UTI as well was started on IV antibiotics with Levaquin hydration and admitted to the hospital. Surprisingly continue complain of worsening abdominal pain along with worsening lower back pain and right sided hip pain with no recent injury. 12/16: Patient is continued on IV fluids at 100 mL per hour. Repeat BUN is 24 1.77. Patient's nausea is better but continues and scopolamine patch ordered. Patient has had very little urine output and Jewell catheter has been ordered. 12/17: Patient status appears to be much improved but she does continue to have concerns about nausea. Consult is in place with GI. Nephrology is following for acute kidney injury and continued on IV fluids at 100 mL per hour. She is continued on Zyvox for VRE urinary tract infection. [facility] Sunday. 12/18: Patient has been seen by Dr. Gonzalez with possibility of central etiology for her nausea especially with her positional symptoms and visual field issues. Dr. Negro has cleared for discharge. Repeat BUN 13 and creatinine 1.07. patient's daughter is concerned about her change in overall health and mental status since September when all her illnesses started. Patient appears to be somewhat paranoid today. Marinol decreased to 2.5 mg twice daily. 12/19: Patient has been seen by neurology. MRI showed mild diffuse age-related cerebral atrophy and moderate chronic small vessel ischemic change. Persistent right-sided paranasal sinus disease possibly acute sinusitis. Electrolytes are improved from yesterday. Attempted to determine when Marinol was started. It appears that was started at [facility] on her last hospitalization in November. Patient is able to state the city, month and year. 12/20: patient's mental status is slightly improved today. She is complaining of feeling that things are getting stuck in her esophagus. She was evaluated by speech therapy. GI has signed off but spoke with Dr. Guzman and she will reevaluate. Esophagram was ordered. IV fluids changed to saline lock and Lasix 1 ordered. 12/21: Patient has been seen by Dr. Julien Guzman. Esophagram was negative with no plan for any intervention at this time. Plan to encourage oral intake, dietitian consult for protein supplement BUN 10 and creatinine 0.96. Nephrology is following. Hemoglobin is stable at 8.8. Anticipate discharge back to [facility] tomorrow. 12/22: patient continues to have gangrenous in his food is put in her mouth. She states she has not had a bowel movement for greater than 1 week. Dulcolax suppository added. Marinol decreased to 2.5 mg daily. Objective - Vital Signs Vital signs: Vital Signs Temp 97.2 F L 12/22/16 07:00 Pulse 66 12/22/16 07:00 Resp 17 12/22/16 07:00 BP 144/67 12/22/16 07:00 Pulse Ox 97 12/22/16 07:00 Intake & Output 12/21/16 12/22/16 12/22/16 18:59 06:59 18:59 Intake Total 0 Output Total 350 865 Balance -350 -865 Intake: Oral 0 Output: Urine 350 590 Straight 350 275 Post Void Residual 275 Other: Voiding Method Indwelling Catheter Indwelling Catheter # Voids 0 0 - Exam General appearance: no average body habitus, cooperative, no disheveled, mild distress, no morbidly obese, no no acute distress, no obese, no severe distress , thin - EENT Eyes: no abnormal pupil, no anicteric sclerae, no disc margins sharp, no edentulous, no EOMI, no PERRLA, no fundus normal, no photophobia, no dentition normal, no poor dentition, no ptosis, no scleral icterus, normal appearance ENT: no hard of hearing, no hearing grossly normal, no NA/AT, normal oropharynx , no other, no pharyngeal erythema, no thrush, no tonsillar exudates, no tonsillar swelling Ears: bilateral: normal, bulging - Neck Neck: no lymphadenopathy, normal ROM, no other, no rigidity, no stridor, no thyromegaly Carotids: bilateral: upstroke normal, upstroke delayed Thyroid: bilateral: normal size - Respiratory Respiratory: bilateral: diminished, dullness, rales, rhonchi, wheezing - Cardiovascular Rhythm: regular Heart sounds: normal: S1, S2 Abnormal Heart Sounds: systolic murmur, S3 Gallop - Gastrointestinal Scar tissue from recent surgery and the midline with no sign of infection but had large keloid and area of old hematoma on it. General gastrointestinal: no absent bowel sounds, decreased bowel sounds, distended, no hepatomegaly, no hyperactive bowel sounds, normal bowel sounds, no organomegaly, no rigid, scaphoid, soft, no splenomegaly, tenderness, no umbilical hernia, no ventral hernia - Integumentary Integumentary: no calor, cellulitis, no cyanotic, no decreased turgor, no flushed, no jaundiced, no normal, no normal turgor, pale, rash, no ulcer - Neurologic Neurologic: CNII-XII intact - Musculoskeletal Musculoskeletal: gait normal, generalized weakness, strength equal bilaterally - Psychiatric Psychiatric: A&O x's 3, no appropriate affect, no intact judgment & insight - Labs CBC & Chem 7: 12/19/16 07:50 12/22/16 08:25 Labs: Abnormal Lab Results - Last 24 Hours (Table) 12/22/16 Range/Units 08:25 Potassium 3.4 L (3.5-5.1) mmol/L Chloride 110 H (98-107) mmol/L Calcium 7.9 L (8.4-10.2) mg/dL Assessment and Plan Plan: 1 metabolic encephalopathy secondary to infection, anemia, lower back pain, side effect medication along with UTI. Treat underlying disease. MRI as above. 2 sepsis with VRE UTI: With patient's current condition patient will be on IV antibiotics continue hydration watch symptoms closely repeat UA and wait for culture, with the any unusual infections specially with the resistant bacteria in the past will have patient seen infectious disease. 3 acute kidney injury most likely ATN with chronic kidney disease: Continue hydration repeat BUN/creatinine daily for the next few days. 4 recurrent abdominal pain with no significant abnormalities on CAT scan. 5 right-sided hip pain with no clear evidence of trauma recently with x-ray showing osteoarthrosis 6 recurrent anemia with blood transfusion different occasion last few weeks hemoglobin has been stable at this point continue to watch for any further recurrent bleed. 7 chronic edema: Has been on diuretics doing well. 8 A. fib with RVR with history of paroxysmal atrial fibrillation: Patient has been on Eliquis 5 mg twice a day along with metoprolol 100 mg daily and amiodarone 200 mg a day pulse rates under control currently. 9 hyperlipidemia: Has been on Lipitor. 10 lower back pain with worsening symptom will continue patient on smaller dose of hydrocodone or tramadol along with mild muscle relaxer. 11 recent history of hemicolectomy with complication: Patient still been watch by surgery. No obstruction this time. 12. metabolic acidosis. IV fluids changed to D5 half normal saline with KCl. 13.dysphagia with lack of appetite. Esophagram normal. Dr. Guzman no need for intervention. Possibly due to constipation. Dulcolax suppository ordered. CODE STATUS: Full code. Discharge plan: Return to [facility] on Sunday or Sunday Impression and plan of care have been directed as dictated by the signing physician. Mayi Lindsay nurse practitioner acting as scribe for signing physician. Time with Patient: Greater than 30
--- NOTE | 2016-12-22 18:05 | P.PN ---
Subjective Patient now presents from [facility] to [facility] emergency center by EMS for dehydration and elevated creatinine. CAT scan of the brain showed cerebral atrophy with right-sided maxillary and ethmoid sinusitis and no change compared to prior. Chest x-ray shows no acute cardiopulmonary disease. On recent blood draw her BUN was 35 and creatinine 3.10 and repeat here is 39 and 3.50. Patient is complaining of pain all over especially in the back and the hips right more so than left. Apparently she has had falls at [facility]. Blood pressure was low with a heart rate of 47. Apparently patient has not been eating and drinking and had worsening confusion. Patient does complain of nausea without vomiting and complains of dizziness with movement. White count 6.7, hemoglobin 9.7. BUN 39 and creatinine 3.5. Urinalysis was turbid, blood trace, leukoesterase large, WBC 75, WBC clumps many, bacteria many. Urine drug screen was positive for marijuana and patient is on Marinol. Patient was started on Levaquin and admitted to the [facility] floor. Antibiotic was subsequently changed to Zyvox as her last urine culture done on November 24 was enterococcus gallinarum, multidrug resistant. Right hip x-ray was done that showed osteoarthrosis with no acute abnormality. CAT scan of the abdomen and pelvis without contrast has been done and report is pending. Patient has been seen by Dr. Penaloza for non-oliguric acute kidney injury. the nausea and retching are further improved. Still not eating. Patient's daughter is concerned. Relates that the mother's been ill since September with similar symptoms. Upper GI without obstruction with a history of stricture. Objective - Vital Signs Vital signs: Vital Signs Temp 97.5 F L 12/22/16 15:00 Pulse 71 12/22/16 15:00 Resp 19 12/22/16 15:00 BP 173/77 12/22/16 15:00 Pulse Ox 98 12/22/16 15:00 Intake & Output 12/21/16 12/22/16 12/22/16 18:59 06:59 18:59 Intake Total 0 Output Total 350 865 150 Balance -350 -865 -150 Intake: Oral 0 Output: Urine 350 590 150 Straight 350 275 Post Void Residual 275 Other: Voiding Method Indwelling Catheter Indwelling Catheter # Voids 0 0 # Bowel Movements 0 - Exam en: This is a 76-year-old female. HEENT: Head is atraumatic, normocephalic. Pupils equal, round. Sclerae is anicteric. NECK: Supple. No JVD. No lymphadenopathy. No thyromegaly. LUNGS: Clear to auscultation. No wheezes or rhonchi. No intercostal retractions. HEART: Regular rate and rhythm. No murmur. ABDOMEN: Soft. Bowel sounds are present. No masses. Generalized tenderness. EXTREMITIES: Positive bilateral pedal edema. No calf tenderness. NEUROLOGICAL: Patient is awake, alert and oriented x1 - Labs CBC & Chem 7: 12/19/16 07:50 12/22/16 17:13 Labs: Abnormal Lab Results - Last 24 Hours (Table) 12/22/16 Range/Units 08:25 Potassium 3.4 L (3.5-5.1) mmol/L Chloride 110 H (98-107) mmol/L Calcium 7.9 L (8.4-10.2) mg/dL Laboratory Results WBC 6.0 k/uL (3.8-10.6) 12/19/16 07:50 RBC 2.80 m/uL (3.80-5.40) L 12/19/16 07:50 Hgb 8.8 gm/dL (11.4-16.0) L 12/19/16 07:50 Hct 27.9 % (34.0-46.0) L 12/19/16 07:50 MCV 99.6 fL (80.0-100.0) 12/19/16 07:50 MCH 31.5 pg (25.0-35.0) 12/19/16 07:50 MCHC 31.6 g/dL (31.0-37.0) 12/19/16 07:50 RDW 17.3 % (11.5-15.5) H 12/19/16 07:50 Plt Count 165 k/uL (150-450) 12/19/16 07:50 Neutrophils % 65 % 12/14/16 20:54 Lymphocytes % 28 % 12/14/16 20:54 Monocytes % 5 % 12/14/16 20:54 Eosinophils % 1 % 12/14/16 20:54 Basophils % 0 % 12/14/16 20:54 Neutrophils # 4.3 k/uL (1.3-7.7) 12/14/16 20:54 Lymphocytes # 1.9 k/uL (1.0-4.8) 12/14/16 20:54 Monocytes # 0.4 k/uL (0-1.0) 12/14/16 20:54 Eosinophils # 0.1 k/uL (0-0.7) 12/14/16 20:54 Basophils # 0.0 k/uL (0-0.2) 12/14/16 20:54 Hypochromasia Slight 12/19/16 07:50 Anisocytosis Slight 12/19/16 07:50 Macrocytosis Slight 12/19/16 07:50 PT 15.3 sec (9.0-12.0) H 12/14/16 20:54 INR 1.6 (<1.1) 12/14/16 20:54 APTT 28.0 sec (22.0-30.0) 12/14/16 20:54 Sodium 140 mmol/L (137-145) 12/22/16 08:25 Potassium 4.6 mmol/L (3.5-5.1) 12/22/16 17:13 Chloride 110 mmol/L (98-107) H 12/22/16 08:25 Carbon Dioxide 23 mmol/L (22-30) 12/22/16 08:25 Anion Gap 7 mmol/L 12/22/16 08:25 BUN 11 mg/dL (7-17) 12/22/16 08:25 Creatinine 0.80 mg/dL (0.52-1.04) 12/22/16 08:25 Est GFR (MDRD) Af Amer >60 (>60 ml/min/1.73 sqM) 12/22/16 08:25 Est GFR (MDRD) Non-Af >60 (>60 ml/min/1.73 sqM) 12/22/16 08:25 Glucose 75 mg/dL (74-99) 12/22/16 08:25 POC Glucose (mg/dL) 117 mg/dL (75-99) H 12/14/16 20:56 POC Glu Sanitary Plumber ID Fifi Garibay 12/14/16 20:56 Plasma Lactic Acid Deion 1.9 mmol/L (0.7-2.0) 12/14/16 20:54 Calcium 7.9 mg/dL (8.4-10.2) L 12/22/16 08:25 Magnesium 1.7 mg/dL (1.6-2.3) 12/16/16 19:19 Iron 33 ug/dL (37-170) L 12/14/16 20:54 TIBC 155 ug/dL (265-497) L 12/14/16 20:54 % Saturation 21.3 % (20-50) 12/14/16 20:54 Ferritin 298 ng/mL (11-264) H 12/14/16 20:54 Total Bilirubin 1.1 mg/dL (0.2-1.3) 12/14/16 20:54 AST 30 U/L (14-36) 12/14/16 20:54 ALT 42 U/L (9-52) 12/14/16 20:54 Alkaline Phosphatase 82 U/L (38-126) 12/14/16 20:54 Total Creatine Kinase 76 U/L (30-135) 12/14/16 20:54 CK-MB (CK-2) 0.6 ng/mL (0.0-2.4) 12/14/16 20:54 CK-MB (CK-2) Rel Index 0.8 12/14/16 20:54 Troponin I 0.022 ng/mL (0.000-0.034) 12/14/16 20:54 Total Protein 5.8 g/dL (6.3-8.2) L 12/14/16 20:54 Albumin 2.7 g/dL (3.5-5.0) L 12/14/16 20:54 Urine Color Yellow 12/14/16 20:52 Urine Appearance Turbid (Clear) H 12/14/16 20:52 Urine pH 5.0 (5.0-8.0) 12/14/16 20:52 Ur Specific [place] 1.014 (1.001-1.035) 12/14/16 20:52 Urine Protein 1+ (Negative) H 12/14/16 20:52 Urine Glucose (UA) Negative (Negative) 12/14/16 20:52 Urine Ketones Negative (Negative) 12/14/16 20:52 Urine Blood Trace (Negative) H 12/14/16 20:52 Urine Nitrate Negative (Negative) 12/14/16 20:52 Urine Bilirubin 1+ (Negative) H 12/14/16 20:52 Urine Urobilinogen 2.0 mg/dL (<2.0) 12/14/16 20:52 Ur Leukocyte Esterase Large (Negative) H 12/14/16 20:52 Urine WBC 75 /hpf (0-5) H 12/14/16 20:52 Urine WBC Clumps Many /hpf (None) H 12/14/16 20:52 Ur Squamous Epith Cells 2 /hpf (0-4) 12/14/16 20:52 Urine Bacteria Many /hpf (None) H 12/14/16 20:52 Hyaline Casts 631 /lpf (0-2) H 12/14/16 20:52 Urine Opiates Screen Not Detected (NotDetected) 12/14/16 20:52 Ur Oxycodone Screen Not Detected (NotDetected) 12/14/16 20:52 Urine Methadone Screen Not Detected (NotDetected) 12/14/16 20:52 Ur Propoxyphene Screen Not Detected (NotDetected) 12/14/16 20:52 Ur Barbiturates Screen Not Detected (NotDetected) 12/14/16 20:52 U Tricyclic Antidepress Not Detected (NotDetected) 12/14/16 20:52 Ur Phencyclidine Scrn Not Detected (NotDetected) 12/14/16 20:52 Ur Amphetamines Screen Not Detected (NotDetected) 12/14/16 20:52 U Methamphetamines Scrn Not Detected (NotDetected) 12/14/16 20:52 U Benzodiazepines Scrn Not Detected (NotDetected) 12/14/16 20:52 Urine Cocaine Screen Not Detected (NotDetected) 12/14/16 20:52 U Marijuana (THC) Screen Detected (NotDetected) H 12/14/16 20:52 Microbiology 12/14/16 21:06 Blood Blood Culture - Final No Growth after 144 hours 12/15/16 13:15 Urine,Catheterized Urine Culture - Final Assessment and Plan (1) Acute renal failure Narrative/Plan: 76-year-old woman with multiple medical troubles presents to Hospital acutely ill. Has acute renal failure showing some improvement. Urinary infection. Recent urine infection with vancomycin-resistant enterococci. Currently receiving Zyvox and being monitored. The significant somewhat better today with hydration and control of her nausea. Does have much less nausea and emesis today. She over still quite miserable. Receiving anxiolytics and some pain control. Laboratories being followed. Her nutritional supplementation when able. Patient's daughter was present. Relates that in September before the mother became ill. She was independent. Driving. Doing her own shopping preparing her own meals. Constantly they are quite concerned about her drastic overall decline. To be seen by gastroenterology. Discussed with the primary team. Neurologic consult performed, work up negative so far. Marinol to be held Discontinue Zyvox negative urine cultures, no change since she's been off antibiotic therapy. There has been a improvement of her status since Marinol has been held. The still not doing well overall. We'll not need anabolic therapy or discharge Will go to rehab once her Elidia improvement. May need percutaneous feeding Status: Acute (2) Altered mental status Status: Acute (3) Urinary tract infection Status: Acute
[2016-12-22] MEDS: MELATONIN 5 MG TABLET PO SCH (19:57)
[2016-12-22] MEDS: CHOLECALCIFEROL 1,000 UNIT TAB PO SCH (19:57)
[2016-12-22] MEDS: ATORVASTATIN 10 MG TAB PO SCH (19:57)
[2016-12-22] MEDS: HYDROmorphone 1 MG/ML 1 ML SYRINGE IVP PRN (21:41)
[2016-12-23] MEDS: HYDROmorphone 1 MG/ML 1 ML SYRINGE IVP PRN (05:47)
[2016-12-23] MEDS: APIXABAN 5 MG TAB PO SCH ×2 (08:32→21:10)
[2016-12-23] MEDS: PANTOPRAZOLE 40 MG TABLET PO SCH (08:32)
[2016-12-23] MEDS: AMIODARONE 200 MG TAB PO SCH (08:32)
[2016-12-23] MEDS: METOPROLOL SUCCINATE (ER) 50 MG TAB.ER.24H PO SCH (08:33)
[2016-12-23] MEDS: SENNOSIDES-DOCUSATE SODIUM 1 EACH TAB PO SCH ×2 (08:37→21:13)
[2016-12-23] MEDS: DRONABINOL 2.5 MG CAP PO SCH (08:38)
[2016-12-23] MEDS: SODIUM CHLORIDE 0.9% 1,000 ML IV SCH (08:39)
[2016-12-23] MEDS: ONDANSETRON 4 MG/2 ML VIAL IVP PRN (08:44)
[2016-12-23 10:12] LABS: Anion Gap 9 mmol/L; Blood Urea Nitrogen 13 mg/dL (7-17); Calcium 8.2 mg/dL (8.4-10.2); Carbon Dioxide 21 mmol/L (22-30); Chloride 115 mmol/L (98-107); Glucose 81 mg/dL (74-99); Non-African American GFR(MDRD) >60 (>60 ml/min/1.73 sqM); Sodium 145 mmol/L (137-145)
[2016-12-23] MEDS: POTASSIUM CHLORIDE 10 MEQ in WATER FOR INJECTION 1 100ML.BAG IVPB SCH ×2 (11:40→12:48)
[2016-12-23] MEDS: CYANOCOBALAMIN 500 MCG TAB PO SCH (11:41)
[2016-12-23] MEDS: FERROUS SULFATE 325 MG TAB PO SCH (11:41)
[2016-12-23] MEDS: ATORVASTATIN 10 MG TAB PO SCH (21:10)
[2016-12-23] MEDS: CHOLECALCIFEROL 1,000 UNIT TAB PO SCH (21:11)
[2016-12-23] MEDS: MELATONIN 5 MG TABLET PO SCH (21:11)
[2016-12-24] MEDS: SODIUM CHLORIDE 0.9% 1,000 ML IV SCH (05:59)
--- NOTE | 2016-12-24 09:18 | P.PN ---
Subjective Patient is seen in follow-up for acute kidney injury. Renal function improved with creatinine of 0.87 as of December 23. Currently resting in bed. No vomiting or diarrhea. Oral intake is poor. Has a Jewell catheter (reinserted due to urinary retention) in place and is nonoliguric. Vital signs are stable. General: The patient appeared well nourished and normally developed. HEENT: Head exam is unremarkable. Neck is without jugular venous distension. LUNGS: Lungs are clear to auscultation and percussion. Breath sounds decreased. HEART: Rate and Rhythm are regular. First and second heart sounds normal. No murmurs, rubs or gallops. ABDOMEN: Abdominal exam reveals normal bowel sounds. Non-tender and non- distended. No evidence of peritonitis. EXTREMITITES: Trace edema. Objective - Vital Signs Vital signs: Vital Signs Temp 98.1 F 12/24/16 07:00 Pulse 68 12/24/16 07:00 Resp 11 L 12/24/16 07:00 BP 143/69 12/24/16 07:00 Pulse Ox 98 12/24/16 07:00 Intake & Output 12/23/16 12/24/16 12/24/16 18:59 06:59 18:59 Intake Total 10 Output Total 250 325 Balance -240 -325 Weight 87.09 kg Intake: Oral 10 Output: Urine 250 325 Other: Voiding Method Indwelling Catheter Indwelling Catheter # Voids 1 0 # Bowel Movements 0 - Labs CBC & Chem 7: 12/19/16 07:50 12/23/16 08:10 Labs: Abnormal Lab Results - Last 24 Hours (Table) 12/23/16 Range/Units 08:10 Chloride 115 H (98-107) mmol/L Carbon Dioxide 21 L (22-30) mmol/L Calcium 8.2 L (8.4-10.2) mg/dL Assessment and Plan Plan: Assessment: #1. Nonoliguric acute kidney injury mostly prerenal in nature secondary to poor oral intake and vomiting. Resolved. Creatinine was 3.5 on admission and down to 0.87 as of December 23. #2. Hyperchloremic metabolic acidosis secondary to IV fluids. #3. Recent urinary tract infection with urine culture positive for enterococcus status post antibiotics. #4. Anemia. Iron replete. Plan: Encourage oral intake. Avoid nephrotoxic agents and hypotensive episodes. Maintain Jewell catheter for now. Continue NS at 50 cc/hr. Pt refusing PEG tube placement.
[2016-12-24 10:14] LABS: Anion Gap 7 mmol/L; Blood Urea Nitrogen 12 mg/dL (7-17); Calcium 7.9 mg/dL (8.4-10.2); Carbon Dioxide 20 mmol/L (22-30); Chloride 114 mmol/L (98-107); Glucose 83 mg/dL (74-99); Non-African American GFR(MDRD) >60 (>60 ml/min/1.73 sqM); Potassium 4.1 mmol/L (3.5-5.1); Sodium 141 mmol/L (137-145)
[2016-12-24] MEDS: CYANOCOBALAMIN 500 MCG TAB PO SCH (10:54)
[2016-12-24] MEDS: METOPROLOL SUCCINATE (ER) 50 MG TAB.ER.24H PO SCH (10:54)
[2016-12-24] MEDS: PANTOPRAZOLE 40 MG TABLET PO SCH (10:54)
[2016-12-24] MEDS: SENNOSIDES-DOCUSATE SODIUM 1 EACH TAB PO SCH ×2 (10:54→20:44)
[2016-12-24] MEDS: AMIODARONE 200 MG TAB PO SCH (10:54)
[2016-12-24] MEDS: DRONABINOL 2.5 MG CAP PO SCH (10:54)
[2016-12-24] MEDS: FERROUS SULFATE 325 MG TAB PO SCH (10:55)
[2016-12-24] MEDS: APIXABAN 5 MG TAB PO SCH ×2 (10:55→20:44)
[2016-12-24] MEDS: HYDROmorphone 1 MG/ML 1 ML SYRINGE IVP PRN (11:16)
--- NOTE | 2016-12-24 12:28 | PN ---
INTERVAL HISTORY: The patient continues to be hemodynamically stable. Patient is currently alert, awake and denying chest pain, shortness of breath, nausea, vomiting, abdominal pain, dizziness or lightheadedness. PHYSICAL EXAMINATION: VITAL SIGNS: 97.1, 60, 16, 143/72 and saturation 99% on room air. LUNGS: Clear to auscultation bilaterally. HEART: S1, S2. ABDOMEN: Soft, no tenderness. Positive bowel sounds in all four quadrants. LOWER EXTREMITIES: ( ) SKIN: No new rash. IMAGING AND LABS: Chem-7 showed normal findings with calcium 8.2. ASSESSMENT AND PLAN: 1. Acute kidney injury seems to be resolving. Will continue monitoring and encourage p.o. intake. 2. Hypokalemia, will replace potassium. 3. Urinary tract infection. Will continue current antibiotic regimen. 4. Sepsis, resolved. 5. Encephalopathy seems to be improving. 6. Acidosis improved. 7. Hyperlipidemia. Continue statin. DISPOSITION: [facility].
--- NOTE | 2016-12-24 17:01 | PN ---
INTERVAL HISTORY: Patient continued to have nausea, but no vomiting reported by nursing staff. At the time when I evaluated the patient, she was dry heaving and retching. The patient's family at the bedside, requiring more information about the patient's care and what can be done to improve her general condition. PHYSICAL EXAMINATION: VITAL SIGNS: 97.7, 64, 16, 165/70 and saturation is 99% on room air. LUNGS: Diminished bilaterally. HEART: Normal S1, S2. ABDOMEN: Soft. No tenderness. No guarding or rebound. EXTREMITIES: Lower extremity and upper extremity anasarca, stable from prior examination. SKIN: No new rash. IMAGING AND LABS: Chloride 114, normal otherwise kidney function. ASSESSMENT AND PLAN: 1. Intractable nausea and vomiting. No clear etiology at this point. I would like to continue monitoring. Family requested evaluation by Dr. Gonzalez from Gastroenterology, who evaluated the patient at the beginning of this course and recommended conservative management. Family is interested in percutaneous endoscopic gastrostomy tube placement and we would like to defer to Gastroenterology discussion and the family requesting the esophagogastroduodenoscopy to be repeated at the time it was done shortly and as in stable condition. 2. Abdominal discomfort. CAT scan result was reviewed that showed fatty liver only and normal otherwise. Upper gastrointestinal follow-through was negative and abdominal series was negative. Will wait Gastroenterology evaluation. 3. Morbid obesity, stable. 4. Encephalopathy, resolved, and patient is improving. 5. Urinary tract infection. We will continue Rocephin. 6. Atrial fibrillation, heart rate is controlled. 7. Severe protein-calorie malnutrition. Percutaneous endoscopic gastrostomy tube consideration per Gastroenterology. 8. Prognosis guarded.
[2016-12-24] MEDS: CHOLECALCIFEROL 1,000 UNIT TAB PO SCH (20:44)
[2016-12-24] MEDS: ATORVASTATIN 10 MG TAB PO SCH (20:44)
[2016-12-24] MEDS: MELATONIN 5 MG TABLET PO SCH (20:44)
[2016-12-25] MEDS: SODIUM CHLORIDE 0.9% 1,000 ML IV SCH ×2 (01:14→20:15)
[2016-12-25] MEDS: ONDANSETRON 4 MG/2 ML VIAL IVP PRN ×2 (04:33→23:23)
[2016-12-25] MEDS: HYDROmorphone 1 MG/ML 1 ML SYRINGE IVP PRN ×2 (04:33→14:08)
[2016-12-25] MEDS: AMIODARONE 200 MG TAB PO SCH (08:15)
[2016-12-25] MEDS: METOPROLOL SUCCINATE (ER) 50 MG TAB.ER.24H PO SCH (08:15)
[2016-12-25] MEDS: PANTOPRAZOLE 40 MG TABLET PO SCH (08:15)
[2016-12-25] MEDS: APIXABAN 5 MG TAB PO SCH ×2 (08:15→20:14)
[2016-12-25] MEDS: DRONABINOL 2.5 MG CAP PO SCH (08:20)
[2016-12-25] MEDS: SENNOSIDES-DOCUSATE SODIUM 1 EACH TAB PO SCH ×2 (08:20→20:14)
[2016-12-25 10:12] LABS: Anion Gap 11 mmol/L; Blood Urea Nitrogen 10 mg/dL (7-17); Carbon Dioxide 18 mmol/L (22-30); Chloride 115 mmol/L (98-107); Glucose 81 mg/dL (74-99); Non-African American GFR(MDRD) >60 (>60 ml/min/1.73 sqM); Potassium 3.9 mmol/L (3.5-5.1); Sodium 144 mmol/L (137-145)
--- NOTE | 2016-12-25 10:19 | P.PN ---
Subjective Patient is seen in follow-up for acute kidney injury. Renal injury resolved with creatinine at 0.69as of December 24. Currently resting in bed. No vomiting or diarrhea. Oral intake is poor. Has a Jewell catheter (reinserted due to urinary retention) in place and is nonoliguric. Vital signs are stable. General: The patient appeared well nourished and normally developed. HEENT: Head exam is unremarkable. Neck is without jugular venous distension. LUNGS: Lungs are clear to auscultation and percussion. Breath sounds decreased. HEART: Rate and Rhythm are regular. First and second heart sounds normal. No murmurs, rubs or gallops. ABDOMEN: Abdominal exam reveals normal bowel sounds. Non-tender and non- distended. No evidence of peritonitis. EXTREMITITES: Trace edema. Objective - Vital Signs Vital signs: Vital Signs Temp 97 F L 12/25/16 07:00 Pulse 64 12/25/16 07:00 Resp 19 12/25/16 07:00 BP 148/74 12/25/16 07:00 Pulse Ox 100 12/25/16 07:00 Intake & Output 12/24/16 12/25/16 12/25/16 18:59 06:59 18:59 Intake Total 600 0 0 Output Total 400 Balance 600 -400 0 Weight 100 kg Intake: Intake, IV Titration 600 Amount Sodium Chloride 0.9% 1, 600 000 ml @ 50 mls/hr IV . Q20H [facility] Rx#:[id number] Oral 0 0 Output: Urine 400 Straight 200 Other: Voiding Method Indwelling Catheter Indwelling Catheter - Labs CBC & Chem 7: 12/19/16 07:50 12/24/16 08:54 Labs: Abnormal Lab Results - Last 24 Hours (Table) 12/24/16 Range/Units 08:54 Chloride 114 H (98-107) mmol/L Carbon Dioxide 20 L (22-30) mmol/L Calcium 7.9 L (8.4-10.2) mg/dL Assessment and Plan Plan: Assessment: #1. Nonoliguric acute kidney injury mostly prerenal in nature secondary to poor oral intake and vomiting. Resolved. Creatinine was 3.5 on admission and down to 0.69 as of yesterday. #2. Hyperchloremic metabolic acidosis secondary to IV fluids. #3. Recent urinary tract infection with urine culture positive for enterococcus status post antibiotics. #4. Anemia. Iron replete. Plan: Encourage oral intake. Avoid nephrotoxic agents and hypotensive episodes. Maintain Jewell catheter for now. Consider urology evaluation due to persistent hypertension. Continue NS at 50 cc/hr. Pt refusing PEG tube placement.
[2016-12-25] MEDS: POTASSIUM CHLORIDE 10 MEQ, LIDOCAINE 2% INJ 10 MG in SODIUM CHLORIDE 0.9% 100 ML IVPB SCH ×2 (12:01→13:12)
[2016-12-25] MEDS: CYANOCOBALAMIN 500 MCG TAB PO SCH (12:02)
[2016-12-25] MEDS: FERROUS SULFATE 325 MG TAB PO SCH (12:02)
--- NOTE | 2016-12-25 16:31 | P.PN ---
Subjective Patient now presents from [facility] to [facility] emergency center by EMS for dehydration and elevated creatinine. CAT scan of the brain showed cerebral atrophy with right-sided maxillary and ethmoid sinusitis and no change compared to prior. Chest x-ray shows no acute cardiopulmonary disease. On recent blood draw her BUN was 35 and creatinine 3.10 and repeat here is 39 and 3.50. Patient is complaining of pain all over especially in the back and the hips right more so than left. Apparently she has had falls at [facility]. Blood pressure was low with a heart rate of 47. Apparently patient has not been eating and drinking and had worsening confusion. Patient does complain of nausea without vomiting and complains of dizziness with movement. White count 6.7, hemoglobin 9.7. BUN 39 and creatinine 3.5. Urinalysis was turbid, blood trace, leukoesterase large, WBC 75, WBC clumps many, bacteria many. Urine drug screen was positive for marijuana and patient is on Marinol. Patient was started on Levaquin and admitted to the [facility] floor. Antibiotic was subsequently changed to Zyvox as her last urine culture done on November 24 was enterococcus gallinarum, multidrug resistant. Right hip x-ray was done that showed osteoarthrosis with no acute abnormality. CAT scan of the abdomen and pelvis without contrast has been done and report is pending. Patient has been seen by Dr. Penaloza for non-oliguric acute kidney injury. the nausea and retching are further improved. Still not eating. Patient's family is concerned. Relates that the mother's been ill since September with similar symptoms. Upper GI without obstruction with a history of stricture. Objective - Vital Signs Vital signs: Vital Signs Temp 98.6 F 12/25/16 15:00 Pulse 74 12/25/16 16:00 Resp 19 12/25/16 16:00 BP 182/81 12/25/16 15:00 Pulse Ox 98 12/25/16 15:00 Intake & Output 12/24/16 12/25/16 12/25/16 18:59 06:59 18:59 Intake Total 600 0 0 Output Total 400 Balance 600 -400 0 Weight 100 kg Intake: Intake, IV Titration 600 Amount Sodium Chloride 0.9% 1, 600 000 ml @ 50 mls/hr IV . Q20H [facility] Rx#:[id number] Oral 0 0 Output: Urine 400 Straight 200 Other: Voiding Method Indwelling Catheter Indwelling Catheter Indwelling Catheter - Exam en: This is a 76-year-old female. HEENT: Head is atraumatic, normocephalic. Pupils equal, round. Sclerae is anicteric. NECK: Supple. No JVD. No lymphadenopathy. No thyromegaly. LUNGS: Clear to auscultation. No wheezes or rhonchi. No intercostal retractions. HEART: Regular rate and rhythm. No murmur. ABDOMEN: Soft. Bowel sounds are present. No masses. Generalized tenderness. EXTREMITIES: Positive bilateral pedal edema. No calf tenderness. NEUROLOGICAL: Patient is awake, alert and oriented x1 - Labs CBC & Chem 7: 12/19/16 07:50 12/25/16 08:36 Labs: Abnormal Lab Results - Last 24 Hours (Table) 12/25/16 Range/Units 08:36 Chloride 115 H (98-107) mmol/L Carbon Dioxide 18 L (22-30) mmol/L Calcium 8.0 L (8.4-10.2) mg/dL Laboratory Results WBC 6.0 k/uL (3.8-10.6) 12/19/16 07:50 RBC 2.80 m/uL (3.80-5.40) L 12/19/16 07:50 Hgb 8.8 gm/dL (11.4-16.0) L 12/19/16 07:50 Hct 27.9 % (34.0-46.0) L 12/19/16 07:50 MCV 99.6 fL (80.0-100.0) 12/19/16 07:50 MCH 31.5 pg (25.0-35.0) 12/19/16 07:50 MCHC 31.6 g/dL (31.0-37.0) 12/19/16 07:50 RDW 17.3 % (11.5-15.5) H 12/19/16 07:50 Plt Count 165 k/uL (150-450) 12/19/16 07:50 Neutrophils % 65 % 12/14/16 20:54 Lymphocytes % 28 % 12/14/16 20:54 Monocytes % 5 % 12/14/16 20:54 Eosinophils % 1 % 12/14/16 20:54 Basophils % 0 % 12/14/16 20:54 Neutrophils # 4.3 k/uL (1.3-7.7) 12/14/16 20:54 Lymphocytes # 1.9 k/uL (1.0-4.8) 12/14/16 20:54 Monocytes # 0.4 k/uL (0-1.0) 12/14/16 20:54 Eosinophils # 0.1 k/uL (0-0.7) 12/14/16 20:54 Basophils # 0.0 k/uL (0-0.2) 12/14/16 20:54 Hypochromasia Slight 12/19/16 07:50 Anisocytosis Slight 12/19/16 07:50 Macrocytosis Slight 12/19/16 07:50 PT 15.3 sec (9.0-12.0) H 12/14/16 20:54 INR 1.6 (<1.1) 12/14/16 20:54 APTT 28.0 sec (22.0-30.0) 12/14/16 20:54 Sodium 144 mmol/L (137-145) 12/25/16 08:36 Potassium 3.9 mmol/L (3.5-5.1) 12/25/16 08:36 Chloride 115 mmol/L (98-107) H 12/25/16 08:36 Carbon Dioxide 18 mmol/L (22-30) L 12/25/16 08:36 Anion Gap 11 mmol/L 12/25/16 08:36 BUN 10 mg/dL (7-17) 12/25/16 08:36 Creatinine 0.65 mg/dL (0.52-1.04) 12/25/16 08:36 Est GFR (MDRD) Af Amer >60 (>60 ml/min/1.73 sqM) 12/25/16 08:36 Est GFR (MDRD) Non-Af >60 (>60 ml/min/1.73 sqM) 12/25/16 08:36 Glucose 81 mg/dL (74-99) 12/25/16 08:36 POC Glucose (mg/dL) 117 mg/dL (75-99) H 12/14/16 20:56 POC Glu Engraver Set Up Operator ID Fifi Garibay 12/14/16 20:56 Plasma Lactic Acid Deion 1.9 mmol/L (0.7-2.0) 12/14/16 20:54 Calcium 8.0 mg/dL (8.4-10.2) L 12/25/16 08:36 Magnesium 1.7 mg/dL (1.6-2.3) 12/16/16 19:19 Iron 33 ug/dL (37-170) L 12/14/16 20:54 TIBC 155 ug/dL (265-497) L 12/14/16 20:54 % Saturation 21.3 % (20-50) 12/14/16 20:54 Ferritin 298 ng/mL (11-264) H 12/14/16 20:54 Total Bilirubin 1.1 mg/dL (0.2-1.3) 12/14/16 20:54 AST 30 U/L (14-36) 12/14/16 20:54 ALT 42 U/L (9-52) 12/14/16 20:54 Alkaline Phosphatase 82 U/L (38-126) 12/14/16 20:54 Total Creatine Kinase 76 U/L (30-135) 12/14/16 20:54 CK-MB (CK-2) 0.6 ng/mL (0.0-2.4) 12/14/16 20:54 CK-MB (CK-2) Rel Index 0.8 12/14/16 20:54 Troponin I 0.022 ng/mL (0.000-0.034) 12/14/16 20:54 Total Protein 5.8 g/dL (6.3-8.2) L 12/14/16 20:54 Albumin 2.7 g/dL (3.5-5.0) L 12/14/16 20:54 Urine Color Yellow 12/14/16 20:52 Urine Appearance Turbid (Clear) H 12/14/16 20:52 Urine pH 5.0 (5.0-8.0) 12/14/16 20:52 Ur Specific Franklin 1.014 (1.001-1.035) 12/14/16 20:52 Urine Protein 1+ (Negative) H 12/14/16 20:52 Urine Glucose (UA) Negative (Negative) 12/14/16 20:52 Urine Ketones Negative (Negative) 12/14/16 20:52 Urine Blood Trace (Negative) H 12/14/16 20:52 Urine Nitrate Negative (Negative) 12/14/16 20:52 Urine Bilirubin 1+ (Negative) H 12/14/16 20:52 Urine Urobilinogen 2.0 mg/dL (<2.0) 12/14/16 20:52 Ur Leukocyte Esterase Large (Negative) H 12/14/16 20:52 Urine WBC 75 /hpf (0-5) H 12/14/16 20:52 Urine WBC Clumps Many /hpf (None) H 12/14/16 20:52 Ur Squamous Epith Cells 2 /hpf (0-4) 12/14/16 20:52 Urine Bacteria Many /hpf (None) H 12/14/16 20:52 Hyaline Casts 631 /lpf (0-2) H 12/14/16 20:52 Urine Opiates Screen Not Detected (NotDetected) 12/14/16 20:52 Ur Oxycodone Screen Not Detected (NotDetected) 12/14/16 20:52 Urine Methadone Screen Not Detected (NotDetected) 12/14/16 20:52 Ur Propoxyphene Screen Not Detected (NotDetected) 12/14/16 20:52 Ur Barbiturates Screen Not Detected (NotDetected) 12/14/16 20:52 U Tricyclic Antidepress Not Detected (NotDetected) 12/14/16 20:52 Ur Phencyclidine Scrn Not Detected (NotDetected) 12/14/16 20:52 Ur Amphetamines Screen Not Detected (NotDetected) 12/14/16 20:52 U Methamphetamines Scrn Not Detected (NotDetected) 12/14/16 20:52 U Benzodiazepines Scrn Not Detected (NotDetected) 12/14/16 20:52 Urine Cocaine Screen Not Detected (NotDetected) 12/14/16 20:52 U Marijuana (THC) Screen Detected (NotDetected) H 12/14/16 20:52 Microbiology 12/14/16 21:06 Blood Blood Culture - Final No Growth after 144 hours 12/15/16 13:15 Urine,Catheterized Urine Culture - Final Assessment and Plan (1) Acute renal failure Narrative/Plan: 76-year-old woman with multiple medical troubles presents to Hospital acutely ill. Has acute renal failure showing some improvement. Urinary infection. Recent urine infection with vancomycin-resistant enterococci. Currently receiving Zyvox and being monitored. The significant somewhat better today with hydration and control of her nausea. Does have much less nausea and emesis today. She over still quite miserable. Receiving anxiolytics and some pain control. Laboratories being followed. Her nutritional supplementation when able. Patient's daughter was present. Relates that in September before the mother became ill. She was independent. Driving. Doing her own shopping preparing her own meals. Constantly they are quite concerned about her drastic overall decline. To be seen by gastroenterology. Discussed with the primary team. Neurologic consult performed, work up negative so far. Marinol to be held Discontinue Zyvox negative urine cultures, no change since she's been off antibiotic therapy. There has been a mild improvement of her status since Marinol has been held. But still not doing well overall. We'll not need antibiotic therapy or discharge Will go to rehab once her nausea improved. May need percutaneous feeding Status: Acute (2) Altered mental status Status: Acute (3) Urinary tract infection Status: Acute
--- NOTE | 2016-12-25 17:11 | P.PN ---
Subjective 76-year-old female was hospitalized in to to 11/25/2016 for acute blood loss anemia with hemoglobin of 5.0 with intractable nausea with no vomiting she had recent hemicolectomy at [facility] she was hospitalized had blood transfusion her hemoglobin was stabilized and ended up going back [place] [facility] [place] she seen Dr. Quintanilla a regular basis. Earlier last year in September patient was transferred to [facility] for severe abdominal pain and severe anemia and end up going for exploratory laparotomy with SVR for ischemic bowel on 09/29/2016 and return to the OR for closure Handswen anastomosis 2 at [facility] on 09/30/2016. She had 2 different occasions in October when she presented to [facility] complaining of nausea and vomiting along with no bowel movement for several day she ended up going for EGD on November 27 was negative and colonoscopy was scheduled as an outpatient hemoglobin was pain above 7 did not require any further transfusion and did well going back to [facility] [place] her anticoagulation was resumed was doing better with it. Patient presented to [facility] in 12/14/2016 with change mental status worsening confusion dehydration significantly elevated creatinine BUN with stage III chronic kidney disease along with acute kidney injury possible ATN. Patient found to have UTI as well was started on IV antibiotics with Levaquin hydration and admitted to the hospital. Surprisingly continue complain of worsening abdominal pain along with worsening lower back pain and right sided hip pain with no recent injury. 12/16: Patient is continued on IV fluids at 100 mL per hour. Repeat BUN is 24 1.77. Patient's nausea is better but continues and scopolamine patch ordered. Patient has had very little urine output and Jewell catheter has been ordered. 12/17: Patient status appears to be much improved but she does continue to have concerns about nausea. Consult is in place with GI. Nephrology is following for acute kidney injury and continued on IV fluids at 100 mL per hour. She is continued on Zyvox for VRE urinary tract infection. Anticipate discharge back [facility] Sunday or Sunday. 12/18: Patient has been seen by Dr. Gonzalez with possibility of central etiology for her nausea especially with her positional symptoms and visual field issues. Dr. Negro has cleared for discharge. Repeat BUN 13 and creatinine 1.07. patient's daughter is concerned about her change in overall health and mental status since September when all her illnesses started. Patient appears to be somewhat paranoid today. Marinol decreased to 2.5 mg twice daily. 12/19: Patient has been seen by neurology. MRI showed mild diffuse age-related cerebral atrophy and moderate chronic small vessel ischemic change. Persistent right-sided paranasal sinus disease possibly acute sinusitis. Electrolytes are improved from yesterday. Attempted to determine when Marinol was started. It appears that was started at [facility] on her last hospitalization in November. Patient is able to state the city, month and year. 12/20: patient's mental status is slightly improved today. She is complaining of feeling that things are getting stuck in her esophagus. She was evaluated by speech therapy. GI has signed off but spoke with Dr. Guzman and she will reevaluate. Esophagram was ordered. IV fluids changed to saline lock and Lasix 1 ordered. 12/21: Patient has been seen by Dr. Julien Guzman. Esophagram was negative with no plan for any intervention at this time. Plan to encourage oral intake, dietitian consult for protein supplement BUN 10 and creatinine 0.96. Nephrology is following. Hemoglobin is stable at 8.8. [facility]. 12/22: patient continues to have gangrenous in his food is put in her mouth. She states she has not had a bowel movement for greater than 1 week. Dulcolax suppository added. Marinol decreased to 2.5 mg daily. 12/25: Over the weekend, family was requesting information about PEG tube placement deferred to GI service as patient continued to have retching and unable to take in food. Patient refused PEG. Patient complains that she can not taste normal. Consult with Dr. Garcia if amiodarone could be causing/contribution to dysgeusia. Zyvox has been discontinued by Dr. Martinez. Objective - Vital Signs Vital signs: Vital Signs Temp 97 F L 12/25/16 07:00 Pulse 64 12/25/16 07:00 Resp 19 12/25/16 07:00 BP 148/74 12/25/16 07:00 Pulse Ox 100 12/25/16 07:00 Intake & Output 12/24/16 12/25/16 12/25/16 18:59 06:59 18:59 Intake Total 600 0 0 Output Total 400 Balance 600 -400 0 Weight 100 kg Intake: Intake, IV Titration 600 Amount Sodium Chloride 0.9% 1, 600 000 ml @ 50 mls/hr IV . Q20H [facility] Rx#:[id number] Oral 0 0 Output: Urine 400 Straight 200 Other: Voiding Method Indwelling Catheter Indwelling Catheter - Exam General appearance: no average body habitus, cooperative, no disheveled, mild distress, no morbidly obese, no no acute distress, no obese, no severe distress , thin - EENT Eyes: no abnormal pupil, no anicteric sclerae, no disc margins sharp, no edentulous, no EOMI, no PERRLA, no fundus normal, no photophobia, no dentition normal, no poor dentition, no ptosis, no scleral icterus, normal appearance ENT: no hard of hearing, no hearing grossly normal, no NA/AT, normal oropharynx , no other, no pharyngeal erythema, no thrush, no tonsillar exudates, no tonsillar swelling Ears: bilateral: normal, bulging - Neck Neck: no lymphadenopathy, normal ROM, no other, no rigidity, no stridor, no thyromegaly Carotids: bilateral: upstroke normal, upstroke delayed Thyroid: bilateral: normal size - Respiratory Respiratory: bilateral: diminished, dullness, rales, rhonchi, wheezing - Cardiovascular Rhythm: regular Heart sounds: normal: S1, S2 Abnormal Heart Sounds: systolic murmur, S3 Gallop - Gastrointestinal Scar tissue from recent surgery and the midline with no sign of infection but had large keloid and area of old hematoma on it. General gastrointestinal: no absent bowel sounds, decreased bowel sounds, distended, no hepatomegaly, no hyperactive bowel sounds, normal bowel sounds, no organomegaly, no rigid, scaphoid, soft, no splenomegaly, tenderness, no umbilical hernia, no ventral hernia - Integumentary Integumentary: no calor, cellulitis, no cyanotic, no decreased turgor, no flushed, no jaundiced, no normal, no normal turgor, pale, rash, no ulcer - Neurologic Neurologic: CNII-XII intact - Musculoskeletal Musculoskeletal: gait normal, generalized weakness, strength equal bilaterally - Psychiatric Psychiatric: A&O x's 3, no appropriate affect, no intact judgment & insight - Labs CBC & Chem 7: 12/19/16 07:50 12/25/16 08:36 Labs: Abnormal Lab Results - Last 24 Hours (Table) 12/24/16 Range/Units 08:54 Chloride 114 H (98-107) mmol/L Carbon Dioxide 20 L (22-30) mmol/L Calcium 7.9 L (8.4-10.2) mg/dL Assessment and Plan Plan: 1 metabolic encephalopathy secondary to infection, anemia, lower back pain, side effect medication along with UTI. Treat underlying disease. MRI as above. 2 sepsis with VRE UTI: With patient's current condition patient will be on IV antibiotics continue hydration watch symptoms closely repeat UA and wait for culture, with the any unusual infections specially with the resistant bacteria in the past will have patient seen infectious disease. 3 acute kidney injury most likely ATN with chronic kidney disease: Continue hydration repeat BUN/creatinine daily for the next few days. 4 recurrent abdominal pain with no significant abnormalities on CAT scan. 5 right-sided hip pain with no clear evidence of trauma recently with x-ray showing osteoarthrosis 6 recurrent anemia with blood transfusion different occasion last few weeks hemoglobin has been stable at this point continue to watch for any further recurrent bleed. 7 chronic edema: Has been on diuretics doing well. 8 A. fib with RVR with history of paroxysmal atrial fibrillation: Patient has been on Eliquis 5 mg twice a day along with metoprolol 100 mg daily and amiodarone 200 mg a day pulse rates under control currently. 9 hyperlipidemia: Has been on Lipitor. 10 lower back pain with worsening symptom will continue patient on smaller dose of hydrocodone or tramadol along with mild muscle relaxer. 11 recent history of hemicolectomy with complication: Patient still been watch by surgery. No obstruction this time. 12. metabolic acidosis. IV fluids changed to D5 half normal saline with KCl. 13.dysphagia with lack of appetite and dysgeusia. Esophagram normal. Dr. Guzman no need for intervention. Possibly due to constipation. Dulcolax suppository ordered. CODE STATUS: Full code. Discharge plan: Return to [facility] on Sunday or Sunday Impression and plan of care have been directed as dictated by the signing physician. Mayi Lindsay nurse practitioner acting as scribe for signing physician. Time with Patient: Greater than 30
[2016-12-25] MEDS: CHOLECALCIFEROL 1,000 UNIT TAB PO SCH (20:14)
[2016-12-25] MEDS: ATORVASTATIN 10 MG TAB PO SCH (20:14)
[2016-12-25] MEDS: MELATONIN 5 MG TABLET PO SCH (20:14)
[2016-12-26 08:40] LABS: Anisocytosis Slight; CH 31.3; CHCM 33.2; HCT 22.3 % (34.0-46.0); HDW 3.04; MCH 31.2 pg (25.0-35.0); MCHC 32.9 g/dL (31.0-37.0); MCV 94.7 fL (80.0-100.0); Mean Platelet Volume 8.2; RBC 2.36 m/uL (3.80-5.40); WBC 5.9 k/uL (3.8-10.6)
[2016-12-26 08:41] LABS: HGB 7.3 gm/dL (11.4-16.0)
[2016-12-26 09:02] LABS: Anion Gap 11 mmol/L; Blood Urea Nitrogen 9 mg/dL (7-17); Calcium 7.6 mg/dL (8.4-10.2); Carbon Dioxide 18 mmol/L (22-30); Chloride 114 mmol/L (98-107); Glucose 87 mg/dL (74-99); Non-African American GFR(MDRD) >60 (>60 ml/min/1.73 sqM); Potassium 3.4 mmol/L (3.5-5.1); Sodium 143 mmol/L (137-145)
[2016-12-26] MEDS: METOPROLOL SUCCINATE (ER) 50 MG TAB.ER.24H PO SCH (09:10)
[2016-12-26] MEDS: SENNOSIDES-DOCUSATE SODIUM 1 EACH TAB PO SCH ×2 (09:10→21:26)
[2016-12-26] MEDS: APIXABAN 5 MG TAB PO SCH ×2 (09:10→21:24)
[2016-12-26] MEDS: PANTOPRAZOLE 40 MG TABLET PO SCH (09:10)
[2016-12-26] MEDS: AMIODARONE 200 MG TAB PO SCH (09:10)
[2016-12-26] MEDS: DRONABINOL 2.5 MG CAP PO SCH (09:10)
[2016-12-26] MEDS ORDERED: SODIUM BICARB 8.4% 50 ML SYR (1 MEQ/ML) IV STA (09:40)
[2016-12-26] MEDS ORDERED: POTASSIUM CHLORIDE ER 20 MEQ TAB.ER PO STA (09:40)
--- NOTE | 2016-12-26 10:54 | P.PN ---
Subjective Patient is seen in follow-up for acute kidney injury. Renal injury resolved with creatinine at 0.64 today. Currently resting in bed. No vomiting or diarrhea. Oral intake is poor. Has a Jewell catheter (reinserted due to urinary retention) in place and is nonoliguric. Patient doesn't respond much to verbal commands. Vital signs are stable. General: The patient appeared well nourished and normally developed. HEENT: Head exam is unremarkable. Neck is without jugular venous distension. LUNGS: Lungs are clear to auscultation and percussion. Breath sounds decreased. HEART: Rate and Rhythm are regular. First and second heart sounds normal. No murmurs, rubs or gallops. ABDOMEN: Abdominal exam reveals normal bowel sounds. Non-tender and non- distended. No evidence of peritonitis. EXTREMITITES: Trace edema. Objective - Vital Signs Vital signs: Vital Signs Temp 97.4 F L 12/26/16 07:00 Pulse 70 12/26/16 07:00 Resp 20 12/26/16 07:00 BP 152/80 12/26/16 07:00 Pulse Ox 98 12/26/16 07:00 Intake & Output 12/25/16 12/26/16 12/26/16 18:59 06:59 18:59 Intake Total 0 300 Output Total 300 600 Balance -300 -300 Weight 100 kg 82 kg Intake: Oral 0 300 Output: Urine 300 600 Straight 300 Other: Voiding Method Indwelling Catheter Indwelling Catheter - Labs CBC & Chem 7: 12/26/16 07:52 12/26/16 07:52 Labs: Abnormal Lab Results - Last 24 Hours (Table) 12/26/16 12/26/16 Range/Units 07:52 07:52 RBC 2.36 L (3.80-5.40) m/uL Hgb 7.3 L D (11.4-16.0) gm/dL Hct 22.3 L (34.0-46.0) % RDW 17.0 H (11.5-15.5) % Plt Count 115 L (150-450) k/uL Potassium 3.4 L (3.5-5.1) mmol/L Chloride 114 H (98-107) mmol/L Carbon Dioxide 18 L (22-30) mmol/L Calcium 7.6 L (8.4-10.2) mg/dL Assessment and Plan Plan: Assessment: #1. Nonoliguric acute kidney injury mostly prerenal in nature secondary to poor oral intake and vomiting. Resolved. Creatinine was 3.5 on admission and down to 0.64 as of today. #2. Hyperchloremic metabolic acidosis secondary to IV fluids. #3. Recent urinary tract infection with urine culture positive for enterococcus status post antibiotics. #4. Anemia. Iron replete. #5. Hypokalemia due to poor nutritional status. Rule out magnesium deficiency. Plan: Encourage oral intake. Avoid nephrotoxic agents and hypotensive episodes. Maintain Jewell catheter for now. Consider urology evaluation due to persistent hypertension. Continue NS at 50 cc/hr. Pt refusing PEG tube placement. Check magnesium level. Replace potassium. 40 mEq today.
--- NOTE | 2016-12-26 10:59 | P.PN ---
Subjective Principal diagnosis: Anorexia nausea vomiting. Admitted with sepsis, dehydration and recent VRE UTI. Reevaluated in regards to dysphagia nausea vomiting poor appetite. Nursing reports minimal oral intake , patient verbalizing request to change her CODE STATUS as well as making comments "I want to ". Patient has refused PEG tube insertion. Spits out her medications. Upper GI last week reported no mass or stricture. Urine more dark in color today. Objective - Vital Signs Vital signs: Vital Signs Temp 97.4 F L 12/26/16 07:00 Pulse 70 12/26/16 07:00 Resp 20 12/26/16 07:00 BP 152/80 12/26/16 07:00 Pulse Ox 98 12/26/16 07:00 Intake & Output 12/25/16 12/26/16 12/26/16 18:59 06:59 18:59 Intake Total 0 300 Output Total 300 600 Balance -300 -300 Weight 100 kg 82 kg Intake: Oral 0 300 Output: Urine 300 600 Straight 300 Other: Voiding Method Indwelling Catheter Indwelling Catheter - Exam General appearance: The patient is awake with stimulation. Flat affect. HET: Head is normocephalic and atraumatic. Pupils are equal and reactive. Oropharynx is clear without lesions. Neck: Supple without lymphadenopathy. Trachea midline. Heart: S1 S2. Regular rate and rhythm. Lungs: No crackles or wheezes are heard. Abdomen: Soft, nontender, nondistended with bowel sounds. No peritoneal signs. No palpable organomegaly or masses. Extremities: Jewell with dark brown urine. Pedal edema. Neurological: No focal deficits. Strength and sensation are grossly intact. - Labs CBC & Chem 7: 12/26/16 07:52 12/26/16 07:52 Labs: Abnormal Lab Results - Last 24 Hours (Table) 12/26/16 12/26/16 Range/Units 07:52 07:52 RBC 2.36 L (3.80-5.40) m/uL Hgb 7.3 L D (11.4-16.0) gm/dL Hct 22.3 L (34.0-46.0) % RDW 17.0 H (11.5-15.5) % Plt Count 115 L (150-450) k/uL Potassium 3.4 L (3.5-5.1) mmol/L Chloride 114 H (98-107) mmol/L Carbon Dioxide 18 L (22-30) mmol/L Calcium 7.6 L (8.4-10.2) mg/dL Assessment and Plan Plan: 1. Dysphagia, anorexia, nausea, vomiting. Nausea vomiting improved however anorexia still persistent. Barium esophagram reported no evidence of large obstructing mass or stricture. Etiology of anorexia is unclear possibly psychological possible medication related. 2. Nonoliguric acute kidney injury prerenal. 3. Sepsis with VRE UTI. 4. Metabolic encephalopathy. 5. History of atrial fibrillation. Recommendations: 1. Dr. Gonzalez recommends supportive measures. EGD evaluation not recommended at this time as the underlying cause of her lack of appetite and nausea vomiting could be related to underlying metabolic conditions and/or medications. We'll follow as needed. Assessment and plan of care discussed with Dr. Gonzalez.
[2016-12-26] MEDS ORDERED: SODIUM FERRIC GLUCONAT-SUCROSE 125 MG in SODIUM CHLORIDE 0.9% 100 ML IVPB ONE (12:43)
[2016-12-26] MEDS ORDERED: SCOPOLAMINE 1.5MG/72HR PATCH TRANSDERM STA (12:47)
--- NOTE | 2016-12-26 15:11 | CONS ---
DATE OF CONSULTATION: Mrs. Overton is a 76-year-old female who was admitted to the hospital on the ninth of this month. Cardiology consultation was requested because of the treatment with amiodarone. Patient came from the skilled nursing with a progressive dehydration and worsening renal failure with very poor appetite. Apparently, she had episode of GI bleeding and underwent surgery at [facility] and has been initiated on anticoagulation and amiodarone, although details of that are not available to me. I do not have those records available. The patient is quite vague in her history. Does not remember much of what has happened in the past. She thinks that she was told that she has a weak heart as well as she had an irregular heartbeat, but beyond that she does not recall anything further. She denies any chest pain. She has abdominal pain. Her breathing is unchanged, although she is not active physically. She has no clear PND, orthopnea and no recent syncope. Her medications prior to admission included: Amiodarone 20 mg daily. Eliquis 5 mg twice a day, Lipitor 10 mg daily, iron, Lasix 40 mg 6 days a week, potassium, melatonin, metoprolol succinate 100 mg daily, omeprazole. Since her admission, her renal function has improved but she continues to be quite limited in her appetite and her oral intake and question of PEG tube has been raised. REVIEW OF SYSTEMS: Although limited, her respiratory she denies any recent wheezing, cough. GI system: She had poor appetite, abdominal pain. She had a prior history of GI bleeding. system: No dysuria or hematuria. Nervous system: She denies any history of seizure. PHYSICAL EXAMINATION: A 76-year-old female, alert, very poor memory. Blood pressure running in the 130s to 150s with a heart rate in 70s. HEAD: Normocephalic. EYES: Sclerae anicteric. NECK: No bruit. LUNGS: Clear to auscultation. HEART: Regular rate and rhythm. S1, S2, no S3, with systolic murmur at the base. No diastolic murmur. No rub. ABDOMEN: Soft, mild tenderness. No rebound. Positive bowel sounds. EXTREMITIES: No significant edema. Lab data revealed potassium 3.4. BUN and creatinine 9 and 0.64. Magnesium 1.9. Hemoglobin of 7.3, on admission it was 9.7 and on admission her creatinine was 3.5. Her EKG on admission shows sinus mechanism with no evidence of arrhythmia. I do not have any documentation of atrial fibrillation. IMPRESSION: 1. Poor appetite with admission of dehydration, resolved. 2. Possible paroxysmal atrial fibrillation although full details of that are not available to me. 3. History of gastrointestinal bleeding in the past as well as anemia. No active bleeding at this point. 4. History of hyperlipidemia. 5. History of hypertension. 6. Renal failure, resolved. RECOMMENDATIONS: From the cardiac standpoint, I will obtain echocardiogram with Doppler. I will check her TSH. I will try to obtain the work-up that was down at [facility]. I do not believe that her swallowing problem is related to the amiodarone but I will await for the work-up that was done at [facility] before we make further recommendations. I have discussed those findings with Dr. Quinatnilla. Thank you for this consult. We will follow with you.
--- NOTE | 2016-12-26 15:27 | US ---
EXAMINATION TYPE: US abdomen limited DATE OF EXAM: 12/26/2016 3:12 PM COMPARISON: CT in PACS CLINICAL HISTORY: obstruction, continued vomiting. N&V, ABD pain EXAM MEASUREMENTS: Liver Length: 15.7 cm Gallbladder Wall: 0.3 cm CBD: 0.4 cm Right Kidney: 11.2 x 4.9 x 5.2 cm TECHNOLOGIST IMPRESSION: Pancreas: wnl, tail obscured by overlying bowel gas Liver: Limited visualization shows no abnormality Gallbladder: wnl Evidence for sonographic Gamble's sign: No CBD: wnl Right Kidney: wnl The gallbladder wall measures 2.5 mm. IMPRESSION: NORMAL RIGHT UPPER QUADRANT ULTRASOUND.
[2016-12-26] MEDS: FERROUS SULFATE 325 MG TAB PO SCH (15:33)
[2016-12-26] MEDS: CYANOCOBALAMIN 500 MCG TAB PO SCH (15:33)
[2016-12-26] MEDS: MIRTAZAPINE 15 MG TAB PO SCH (18:17)
[2016-12-26] MEDS: SODIUM CHLORIDE 0.9% 1,000 ML IV SCH (18:17)
--- NOTE | 2016-12-26 20:09 | P.PN ---
Subjective Patient now presents from [facility] to [facility] emergency center by EMS for dehydration and elevated creatinine. CAT scan of the brain showed cerebral atrophy with right-sided maxillary and ethmoid sinusitis and no change compared to prior. Chest x-ray shows no acute cardiopulmonary disease. On recent blood draw her BUN was 35 and creatinine 3.10 and repeat here is 39 and 3.50. Patient is complaining of pain all over especially in the back and the hips right more so than left. Apparently she has had falls at [facility]. Blood pressure was low with a heart rate of 47. Apparently patient has not been eating and drinking and had worsening confusion. Patient does complain of nausea without vomiting and complains of dizziness with movement. White count 6.7, hemoglobin 9.7. BUN 39 and creatinine 3.5. Urinalysis was turbid, blood trace, leukoesterase large, WBC 75, WBC clumps many, bacteria many. Urine drug screen was positive for marijuana and patient is on Marinol. Patient was started on Levaquin and admitted to the [facility] floor. Antibiotic was subsequently changed to Zyvox as her last urine culture done on November 24 was enterococcus gallinarum, multidrug resistant. Right hip x-ray was done that showed osteoarthrosis with no acute abnormality. CAT scan of the abdomen and pelvis without contrast has been done and report is pending. Patient has been seen by Dr. Penaloza for non-oliguric acute kidney injury. the nausea and retching are further improved. Still not eating. Patient's family is concerned. Relates that the mother's been ill since September with similar symptoms. Upper GI without obstruction with a history of stricture. Objective - Vital Signs Vital signs: Vital Signs Temp 97.0 F L 12/26/16 15:00 Pulse 74 12/26/16 17:20 Resp 20 12/26/16 17:20 BP 157/79 12/26/16 15:00 Pulse Ox 96 12/26/16 15:00 Intake & Output 12/26/16 12/26/16 12/27/16 06:59 18:59 06:59 Intake Total 300 200 20 Output Total 600 800 Balance -300 -600 20 Weight 82 kg 82 kg Intake: Oral 300 200 20 Output: Urine 600 800 Straight 300 Other: Voiding Method Indwelling Catheter Indwelling Catheter # Voids 0 # Bowel Movements 0 - Exam en: This is a 76-year-old female. HEENT: Head is atraumatic, normocephalic. Pupils equal, round. Sclerae is anicteric. NECK: Supple. No JVD. No lymphadenopathy. No thyromegaly. LUNGS: Clear to auscultation. No wheezes or rhonchi. No intercostal retractions. HEART: Regular rate and rhythm. No murmur. ABDOMEN: Soft. Bowel sounds are present. No masses. Generalized tenderness. EXTREMITIES: Positive bilateral pedal edema. No calf tenderness. NEUROLOGICAL: Patient is awake, alert and oriented x1 - Labs CBC & Chem 7: 12/26/16 07:52 12/26/16 07:52 Labs: Abnormal Lab Results - Last 24 Hours (Table) 12/26/16 12/26/16 Range/Units 07:52 07:52 RBC 2.36 L (3.80-5.40) m/uL Hgb 7.3 L D (11.4-16.0) gm/dL Hct 22.3 L (34.0-46.0) % RDW 17.0 H (11.5-15.5) % Plt Count 115 L (150-450) k/uL Potassium 3.4 L (3.5-5.1) mmol/L Chloride 114 H (98-107) mmol/L Carbon Dioxide 18 L (22-30) mmol/L Calcium 7.6 L (8.4-10.2) mg/dL Laboratory Results WBC 5.9 k/uL (3.8-10.6) 12/26/16 07:52 RBC 2.36 m/uL (3.80-5.40) L 12/26/16 07:52 Hgb 7.3 gm/dL (11.4-16.0) L D 12/26/16 07:52 Hct 22.3 % (34.0-46.0) L 12/26/16 07:52 MCV 94.7 fL (80.0-100.0) 12/26/16 07:52 MCH 31.2 pg (25.0-35.0) 12/26/16 07:52 MCHC 32.9 g/dL (31.0-37.0) 12/26/16 07:52 RDW 17.0 % (11.5-15.5) H 03/21/17 07:52 Plt Count 115 k/uL (150-450) L 12/26/16 07:52 Neutrophils % 65 % 12/14/16 20:54 Lymphocytes % 28 % 12/14/16 20:54 Monocytes % 5 % 12/14/16 20:54 Eosinophils % 1 % 12/14/16 20:54 Basophils % 0 % 12/14/16 20:54 Neutrophils # 4.3 k/uL (1.3-7.7) 12/14/16 20:54 Lymphocytes # 1.9 k/uL (1.0-4.8) 12/14/16 20:54 Monocytes # 0.4 k/uL (0-1.0) 12/14/16 20:54 Eosinophils # 0.1 k/uL (0-0.7) 12/14/16 20:54 Basophils # 0.0 k/uL (0-0.2) 12/14/16 20:54 Hypochromasia Slight 12/19/16 07:50 Anisocytosis Slight 12/26/16 07:52 Macrocytosis Slight 12/19/16 07:50 PT 15.3 sec (9.0-12.0) H 12/14/16 20:54 INR 1.6 (<1.1) 12/14/16 20:54 APTT 28.0 sec (22.0-30.0) 12/14/16 20:54 Sodium 143 mmol/L (137-145) 12/26/16 07:52 Potassium 3.4 mmol/L (3.5-5.1) L 12/26/16 07:52 Chloride 114 mmol/L (98-107) H 12/26/16 07:52 Carbon Dioxide 18 mmol/L (22-30) L 12/26/16 07:52 Anion Gap 11 mmol/L 12/26/16 07:52 BUN 9 mg/dL (7-17) 12/26/16 07:52 Creatinine 0.64 mg/dL (0.52-1.04) 12/26/16 07:52 Est GFR (MDRD) Af Amer >60 (>60 ml/min/1.73 sqM) 12/26/16 07:52 Est GFR (MDRD) Non-Af >60 (>60 ml/min/1.73 sqM) 12/26/16 07:52 Glucose 87 mg/dL (74-99) 12/26/16 07:52 POC Glucose (mg/dL) 117 mg/dL (75-99) H 12/14/16 20:56 POC Glu Counter Clerk [employer] ID Fifi Garibay 12/14/16 20:56 Plasma Lactic Acid Deion 1.9 mmol/L (0.7-2.0) 12/14/16 20:54 Calcium 7.6 mg/dL (8.4-10.2) L 12/26/16 07:52 Magnesium 1.9 mg/dL (1.6-2.3) 12/26/16 07:52 Iron 33 ug/dL (37-170) L 12/14/16 20:54 TIBC 155 ug/dL (265-497) L 12/14/16 20:54 % Saturation 21.3 % (20-50) 12/14/16 20:54 Ferritin 298 ng/mL (11-264) H 12/14/16 20:54 Total Bilirubin 1.1 mg/dL (0.2-1.3) 12/14/16 20:54 AST 30 U/L (14-36) 12/14/16 20:54 ALT 42 U/L (9-52) 12/14/16 20:54 Alkaline Phosphatase 82 U/L (38-126) 12/14/16 20:54 Total Creatine Kinase 76 U/L (30-135) 12/14/16 20:54 CK-MB (CK-2) 0.6 ng/mL (0.0-2.4) 12/14/16 20:54 CK-MB (CK-2) Rel Index 0.8 12/14/16 20:54 Troponin I 0.022 ng/mL (0.000-0.034) 12/14/16 20:54 Total Protein 5.8 g/dL (6.3-8.2) L 12/14/16 20:54 Albumin 2.7 g/dL (3.5-5.0) L 12/14/16 20:54 Lipase 70 U/L (23-300) 12/26/16 07:52 TSH 0.936 mIU/L (0.465-4.680) 12/26/16 07:52 Urine Color Yellow 12/14/16 20:52 Urine Appearance Turbid (Clear) H 12/14/16 20:52 Urine pH 5.0 (5.0-8.0) 12/14/16 20:52 Ur Specific [place] 1.014 (1.001-1.035) 12/14/16 20:52 Urine Protein 1+ (Negative) H 12/14/16 20:52 Urine Glucose (UA) Negative (Negative) 12/14/16 20:52 Urine Ketones Negative (Negative) 12/14/16 20:52 Urine Blood Trace (Negative) H 12/14/16 20:52 Urine Nitrate Negative (Negative) 12/14/16 20:52 Urine Bilirubin 1+ (Negative) H 12/14/16 20:52 Urine Urobilinogen 2.0 mg/dL (<2.0) 12/14/16 20:52 Ur Leukocyte Esterase Large (Negative) H 12/14/16 20:52 Urine WBC 75 /hpf (0-5) H 12/14/16 20:52 Urine WBC Clumps Many /hpf (None) H 12/14/16 20:52 Ur Squamous Epith Cells 2 /hpf (0-4) 12/14/16 20:52 Urine Bacteria Many /hpf (None) H 12/14/16 20:52 Hyaline Casts 631 /lpf (0-2) H 12/14/16 20:52 Urine Opiates Screen Not Detected (NotDetected) 12/14/16 20:52 Ur Oxycodone Screen Not Detected (NotDetected) 12/14/16 20:52 Urine Methadone Screen Not Detected (NotDetected) 12/14/16 20:52 Ur Propoxyphene Screen Not Detected (NotDetected) 12/14/16 20:52 Ur Barbiturates Screen Not Detected (NotDetected) 12/14/16 20:52 U Tricyclic Antidepress Not Detected (NotDetected) 12/14/16 20:52 Ur Phencyclidine Scrn Not Detected (NotDetected) 12/14/16 20:52 Ur Amphetamines Screen Not Detected (NotDetected) 12/14/16 20:52 U Methamphetamines Scrn Not Detected (NotDetected) 12/14/16 20:52 U Benzodiazepines Scrn Not Detected (NotDetected) 12/14/16 20:52 Urine Cocaine Screen Not Detected (NotDetected) 12/14/16 20:52 U Marijuana (THC) Screen Detected (NotDetected) H 12/14/16 20:52 Microbiology 12/14/16 21:06 Blood Blood Culture - Final No Growth after 144 hours 12/15/16 13:15 Urine,Catheterized Urine Culture - Final Assessment and Plan (1) Acute renal failure Narrative/Plan: 76-year-old woman with multiple medical troubles presents to Hospital acutely ill. Has acute renal failure showing some improvement. Urinary infection. Recent urine infection with vancomycin-resistant enterococci. Currently receiving Zyvox and being monitored. The significant somewhat better today with hydration and control of her nausea. Does have much less nausea and emesis today. She over still quite miserable. Receiving anxiolytics and some pain control. Laboratories being followed. Her nutritional supplementation when able. Patient's daughter was present. Relates that in September before the mother became ill. She was independent. Driving. Doing her own shopping preparing her own meals. Constantly they are quite concerned about her drastic overall decline. To be seen by gastroenterology. Discussed with the primary team. Neurologic consult performed, work up negative so far. Marinol to be held Discontinue Zyvox negative urine cultures, no change since she's been off antibiotic therapy. There has been a mild improvement of her status since Marinol has been held. But still not doing well overall. We'll not need antibiotic therapy or discharge Will go to rehab once her nausea improved. The patient's been seen by cardiology and echocardiogram was requested Also be seen by psychiatry for the possibility of a neurogenic etiology of her retching. Status: Acute (2) Altered mental status Status: Acute (3) Urinary tract infection Status: Acute
[2016-12-26] MEDS: CHOLECALCIFEROL 1,000 UNIT TAB PO SCH (21:23)
[2016-12-26] MEDS: ATORVASTATIN 10 MG TAB PO SCH (21:24)
[2016-12-27 08:48] LABS: Anisocytosis Slight; CH 31.3; HCT 21.7 % (34.0-46.0); HDW 3.13; HGB 7.3 gm/dL (11.4-16.0); MCH 31.3 pg (25.0-35.0); MCHC 33.9 g/dL (31.0-37.0); MCV 92.4 fL (80.0-100.0); Mean Platelet Volume 7.7; RBC 2.34 m/uL (3.80-5.40); WBC 7.1 k/uL (3.8-10.6)
[2016-12-27] MEDS: SENNOSIDES-DOCUSATE SODIUM 1 EACH TAB PO SCH ×2 (09:15→21:20)
[2016-12-27] MEDS: APIXABAN 5 MG TAB PO SCH (09:16)
[2016-12-27] MEDS: METOPROLOL SUCCINATE (ER) 50 MG TAB.ER.24H PO SCH (09:16)
[2016-12-27] MEDS: AMIODARONE 200 MG TAB PO SCH (09:16)
[2016-12-27] MEDS: PANTOPRAZOLE 40 MG TABLET PO SCH (09:16)
--- NOTE | 2016-12-27 11:04 | P.PN ---
Subjective 76-year-old female was hospitalized in to to 11/25/2016 for acute blood loss anemia with hemoglobin of 5.0 with intractable nausea with no vomiting she had recent hemicolectomy at [facility] she was hospitalized had blood transfusion her hemoglobin was stabilized and ended up going back to [facility] on the [place] which she seen Dr. Quintanilla a regular basis. Earlier last year in September patient was transferred to [facility] for severe abdominal pain and severe anemia and end up going for exploratory laparotomy with SVR for ischemic bowel on 09/29/2016 and return to the OR for closure Handswen anastomosis 2 at [facility] on 09/30/2016. She had 2 different occasions in October when she presented to [facility] complaining of nausea and vomiting along with no bowel movement for several day she ended up going for EGD on November 27 was negative and colonoscopy was scheduled as an outpatient hemoglobin was pain above 7 did not require any further transfusion and did well going back to [facility] [place] her anticoagulation was resumed was doing better with it. Patient [facility] in 12/14/2016 with change mental status worsening confusion dehydration significantly elevated creatinine BUN with stage III chronic kidney disease along with acute kidney injury possible ATN. Patient found to have UTI as well was started on IV antibiotics with Levaquin hydration and admitted to the hospital. Surprisingly continue complain of worsening abdominal pain along with worsening lower back pain and right sided hip pain with no recent injury. 12/16: Patient is continued on IV fluids at 100 mL per hour. Repeat BUN is 24 1.77. Patient's nausea is better but continues and scopolamine patch ordered. Patient has had very little urine output and Jewell catheter has been ordered. 12/17: Patient status appears to be much improved but she does continue to have concerns about nausea. Consult is in place with GI. Nephrology is following for acute kidney injury and continued on IV fluids at 100 mL per hour. She is continued on Zyvox for VRE urinary tract infection. Anticipate discharge back to senior care on Sunday or Sunday. 12/18: Patient has been seen by Dr. Gonzalez with possibility of central etiology for her nausea especially with her positional symptoms and visual field issues. Dr. Negro has cleared for discharge. Repeat BUN 13 and creatinine 1.07. patient's daughter is concerned about her change in overall health and mental status since September when all her illnesses started. Patient appears to be somewhat paranoid today. Marinol decreased to 2.5 mg twice daily. 12/19: Patient has been seen by neurology. MRI showed mild diffuse age-related cerebral atrophy and moderate chronic small vessel ischemic change. Persistent right-sided paranasal sinus disease possibly acute sinusitis. Electrolytes are improved from yesterday. Attempted to determine when Marinol was started. It appears that was started at [facility] on her last hospitalization in November. Patient is able to state the city, month and year. 12/20: patient's mental status is slightly improved today. She is complaining of feeling that things are getting stuck in her esophagus. She was evaluated by speech therapy. GI has signed off but spoke with Dr. Guzman and she will reevaluate. Esophagram was ordered. IV fluids changed to saline lock and Lasix 1 ordered. 12/21: Patient has been seen by Dr. Julien Guzman. Esophagram was negative with no plan for any intervention at this time. Plan to encourage oral intake, dietitian consult for protein supplement BUN 10 and creatinine 0.96. Nephrology is following. Hemoglobin is stable at 8.8. Anticipate discharge back to [facility] tomorrow. 12/22: patient continues to have gangrenous in his food is put in her mouth. She states she has not had a bowel movement for greater than 1 week. Dulcolax suppository added. Marinol decreased to 2.5 mg daily. 12/25: Over the weekend, family was requesting information about PEG tube placement deferred to GI service as patient continued to have retching and unable to take in food. Patient refused PEG. Patient complains that she can not taste normal. Consult with Dr. Garcia if amiodarone could be causing/contribution to dysgeusia. Zyvox has been discontinued by Dr. Martinez. 12/26: patient continues to have significant retching. Hemoglobin is at 7.3. Consults added for psychiatry for psychiatric reasons for retching as well as patient has stated to her nurse to tell her family to let her . Consult added with Dr. Rondon to rule out paraneoplastic syndrome. Ultrasound of the abdomen right upper quadrant ordered. Objective - Vital Signs Vital signs: Vital Signs Temp 97.4 F L 12/26/16 07:00 Pulse 74 12/26/16 08:00 Resp 20 12/26/16 08:00 BP 152/80 12/26/16 07:00 Pulse Ox 98 12/26/16 07:00 Intake & Output 12/25/16 12/26/16 12/26/16 18:59 06:59 18:59 Intake Total 0 300 200 Output Total 300 600 Balance -300 -300 200 Weight 100 kg 82 kg Intake: Oral 0 300 200 Output: Urine 300 600 Straight 300 Other: Voiding Method Indwelling Catheter Indwelling Catheter Indwelling Catheter - Exam General appearance: no average body habitus, cooperative, no disheveled, mild distress, no morbidly obese, no no acute distress, no obese, no severe distress , thin - EENT Eyes: no abnormal pupil, no anicteric sclerae, no disc margins sharp, no edentulous, no EOMI, no PERRLA, no fundus normal, no photophobia, no dentition normal, no poor dentition, no ptosis, no scleral icterus, normal appearance ENT: no hard of hearing, no hearing grossly normal, no NA/AT, normal oropharynx , no other, no pharyngeal erythema, no thrush, no tonsillar exudates, no tonsillar swelling Ears: bilateral: normal, bulging - Neck Neck: no lymphadenopathy, normal ROM, no other, no rigidity, no stridor, no thyromegaly Carotids: bilateral: upstroke normal, upstroke delayed Thyroid: bilateral: normal size - Respiratory Respiratory: bilateral: diminished, dullness, rales, rhonchi, wheezing - Cardiovascular Rhythm: regular Heart sounds: normal: S1, S2 Abnormal Heart Sounds: systolic murmur, S3 Gallop - Gastrointestinal Scar tissue from recent surgery and the midline with no sign of infection but had large keloid and area of old hematoma on it. General gastrointestinal: no absent bowel sounds, decreased bowel sounds, distended, no hepatomegaly, no hyperactive bowel sounds, normal bowel sounds, no organomegaly, no rigid, scaphoid, soft, no splenomegaly, tenderness, no umbilical hernia, no ventral hernia - Integumentary Integumentary: no calor, cellulitis, no cyanotic, no decreased turgor, no flushed, no jaundiced, no normal, no normal turgor, pale, rash, no ulcer - Neurologic Neurologic: CNII-XII intact - Musculoskeletal Musculoskeletal: gait normal, generalized weakness, strength equal bilaterally - Psychiatric Psychiatric: A&O x's 3, no appropriate affect, no intact judgment & insight - Labs CBC & Chem 7: 12/27/16 08:15 12/26/16 07:52 Labs: Abnormal Lab Results - Last 24 Hours (Table) 12/26/16 12/26/16 Range/Units 07:52 07:52 RBC 2.36 L (3.80-5.40) m/uL Hgb 7.3 L D (11.4-16.0) gm/dL Hct 22.3 L (34.0-46.0) % RDW 17.0 H (11.5-15.5) % Plt Count 115 L (150-450) k/uL Potassium 3.4 L (3.5-5.1) mmol/L Chloride 114 H (98-107) mmol/L Carbon Dioxide 18 L (22-30) mmol/L Calcium 7.6 L (8.4-10.2) mg/dL Assessment and Plan Plan: 1 metabolic encephalopathy secondary to infection, anemia, lower back pain, side effect medication along with UTI. Treat underlying disease. MRI as above. 2 sepsis with VRE UTI: With patient's current condition patient will be on IV antibiotics continue hydration watch symptoms closely repeat UA and wait for culture, with the any unusual infections specially with the resistant bacteria in the past will have patient seen infectious disease. 3 acute kidney injury most likely ATN with chronic kidney disease: Continue hydration repeat BUN/creatinine daily for the next few days. 4 recurrent abdominal pain with no significant abnormalities on CAT scan. 5 right-sided hip pain with no clear evidence of trauma recently with x-ray showing osteoarthrosis 6 recurrent anemia with blood transfusion different occasion last few weeks hemoglobin has been stable at this point continue to watch for any further recurrent bleed. 7 chronic edema: Has been on diuretics doing well. 8 A. fib with RVR with history of paroxysmal atrial fibrillation: Patient has been on Eliquis 5 mg twice a day along with metoprolol 100 mg daily and amiodarone 200 mg a day pulse rates under control currently. 9 hyperlipidemia: Has been on Lipitor. 10 lower back pain with worsening symptom will continue patient on smaller dose of hydrocodone or tramadol along with mild muscle relaxer. 11 recent history of hemicolectomy with complication: Patient still been watch by surgery. No obstruction this time. 12. metabolic acidosis. IV fluids changed to D5 half normal saline with KCl. 13.dysphagia with lack of appetite and dysgeusia. Esophagram normal. Dr. Guzman no need for intervention. Possibly due to constipation. Dulcolax suppository ordered. CODE STATUS: Full code. Discharge plan: Return to [facility] Impression and plan of care have been directed as dictated by the signing physician. Mayi Lindsay nurse practitioner acting as scribe for signing physician. Time with Patient: Greater than 30
--- NOTE | 2016-12-27 11:10 | ECHOF ---
Referral Reason:afib MEASUREMENTS -------- HEIGHT: 170.2 cm WEIGHT: 81.7 kg BP: 152/80 RVIDd: 2.9 cm (< 3.3) IVSd: 1.4 cm (0.6 - 1.1) LVIDd: 4.0 cm (3.9 - 5.3) LVPWd: 1.4 cm (0.6 - 1.1) IVSs: 2.2 cm LVIDs: 3.1 cm LVPWs: 1.6 cm LA Diam: 3.3 cm (2.7 - 3.8) Ao Diam: 2.5 cm (2.0 - 3.7) LA Diam: 3.4 cm (2.7 - 3.8) MV EXCURSION: 11.800 mm (> 18.000) MV EF SLOPE: 38 mm/s (70 - 150) EPSS: 0.6 cm MV E Konrad: 0.92 m/s MV DecT: 225 ms MV A Konrad: 0.93 m/s MV E/A Ratio: 0.99 RAP: 5.00 mmHg RVSP: 42.57 mmHg FINDINGS -------- Sinus rhythm. This was a technically difficult study with suboptimal views. Pt. not able to turn due to pain. The left ventricular size is normal. There is moderate concentric left ventricular hypertrophy. Overall left ventricular systolic function is low-normal with, an EF between 50 - 55 %. The right ventricle is normal in size. The left atrial size is normal. The right atrium is normal in size. 1.5mg of Definity was utilized for enhancement of images Aortic valve is trileaflet and is mildly thickened. Moderate mitral annular calcification present. Mild tricuspid regurgitation present. There is mild pulmonary hypertension. The right ventricular systolic pressure, as measured by Doppler, is 42.57mmHg. The pulmonic valve was not well visualized. The aortic root size is normal. Normal inferior vena cava with normal inspiratory collapse consistent with estimated right atrial pressure of 5 mmHg. There is no pericardial effusion. CONCLUSIONS -------- 1. Sinus rhythm. 2. Mild tricuspid regurgitation present. 3. There is mild pulmonary hypertension. 4. The pulmonic valve was not well visualized. 5. The aortic root size is normal. 6. Normal inferior vena cava with normal inspiratory collapse consistent with estimated right atrial pressure of 5 mmHg. 7. There is no pericardial effusion. 8. This was a technically difficult study with suboptimal views. 9. Pt. not able to turn due to pain. 10. There is moderate concentric left ventricular hypertrophy. 11. Overall left ventricular systolic function is low-normal with, an EF between 50 - 55 %. 12. The left atrial size is normal. 13. 1.5mg of Definity was utilized for enhancement of images 14. Aortic valve is trileaflet and is mildly thickened. 15. Moderate mitral annular calcification present. CRYOGENICS REPAIRER: Sho Araiza RDCS
--- NOTE | 2016-12-27 11:19 | P.PN ---
Subjective Patient is seen in follow-up for acute kidney injury. Renal injury resolved with creatinine at 0.64 as of yesterday. Currently resting in bed. No vomiting or diarrhea. Oral intake is poor. Has a Jewell catheter (reinserted due to urinary retention) in place and is nonoliguric. Patient doesn't respond much to verbal commands. No changes overnight. Vital signs are stable. General: The patient appeared well nourished and normally developed. HEENT: Head exam is unremarkable. Neck is without jugular venous distension. LUNGS: Lungs are clear to auscultation and percussion. Breath sounds decreased. HEART: Rate and Rhythm are regular. First and second heart sounds normal. No murmurs, rubs or gallops. ABDOMEN: Abdominal exam reveals normal bowel sounds. Non-tender and non- distended. No evidence of peritonitis. EXTREMITITES: Trace edema. Objective - Vital Signs Vital signs: Vital Signs Temp 97.7 F 12/27/16 07:00 Pulse 74 12/27/16 08:00 Resp 20 12/27/16 08:00 BP 135/76 12/27/16 07:00 Pulse Ox 95 12/27/16 07:00 Intake & Output 12/26/16 12/27/16 12/27/16 18:59 06:59 18:59 Intake Total 200 840 0 Output Total 800 400 Balance -600 840 -400 Weight 82 kg 76.5 kg Intake: Intake, IV Titration 800 Amount Sodium Chloride 0.9% 1, 800 000 ml @ 50 mls/hr IV . Q20H [facility] Rx#:[id number] Oral 200 40 0 Output: Urine 800 400 Other: Voiding Method Indwelling Catheter Indwelling Catheter Indwelling Catheter # Voids 0 # Bowel Movements 0 - Labs CBC & Chem 7: 12/27/16 08:15 12/26/16 07:52 Labs: Abnormal Lab Results - Last 24 Hours (Table) 12/27/16 Range/Units 08:15 RBC 2.34 L (3.80-5.40) m/uL Hgb 7.3 L (11.4-16.0) gm/dL Hct 21.7 L (34.0-46.0) % RDW 17.0 H (11.5-15.5) % Plt Count 114 L (150-450) k/uL Assessment and Plan Plan: Assessment: #1. Nonoliguric acute kidney injury mostly prerenal in nature secondary to poor oral intake and vomiting. Resolved. Creatinine was 3.5 on admission and down to 0.64. #2. Hyperchloremic metabolic acidosis secondary to IV fluids. #3. Recent urinary tract infection with urine culture positive for enterococcus status post antibiotics. #4. Anemia. Iron replete. #5. Hypokalemia due to poor nutritional status. Magnesium and replete. Plan: Encourage oral intake. Avoid nephrotoxic agents and hypotensive episodes. Maintain Jewell catheter for now. Consider urology evaluation due to persistent hypertension. Continue NS at 50 cc/hr. Pt refusing PEG tube placement. EGD scheduled for tomorrow.
[2016-12-27] MEDS: CYANOCOBALAMIN 500 MCG TAB PO SCH (12:51)
[2016-12-27] MEDS: FERROUS SULFATE 325 MG TAB PO SCH (12:51)
--- NOTE | 2016-12-27 13:08 | P.PN ---
Subjective 76-year-old female was hospitalized in to to 11/25/2016 for acute blood loss anemia with hemoglobin of 5.0 with intractable nausea with no vomiting she had recent hemicolectomy at [facility] she was hospitalized had blood transfusion her hemoglobin was stabilized and ended up going back to [facility] on the [place] which she seen Dr. Quintanilla a regular basis. Earlier last year in September patient was transferred to [facility] for severe abdominal pain and severe anemia and end up going for exploratory laparotomy with SVR for ischemic bowel on 09/29/2016 and return to the OR for closure Handswen anastomosis 2 at [facility] on 09/30/2016. She had 2 different occasions in October when she presented to [facility] complaining of nausea and vomiting along with no bowel movement for several day she ended up going for EGD on November 27 was negative and colonoscopy was scheduled as an outpatient hemoglobin was pain above 7 did not require any further transfusion and did well going back to [facility] on the [place] her anticoagulation was resumed was doing better with it. Patient presented to [facility] in 12/14/2016 with change mental status worsening confusion dehydration significantly elevated creatinine BUN with stage III chronic kidney disease along with acute kidney injury possible ATN. Patient found to have UTI as well was started on IV antibiotics with Levaquin hydration and admitted to the hospital. Surprisingly continue complain of worsening abdominal pain along with worsening lower back pain and right sided hip pain with no recent injury. 12/16: Patient is continued on IV fluids at 100 mL per hour. Repeat BUN is 24 1.77. Patient's nausea is better but continues and scopolamine patch ordered. Patient has had very little urine output and Jewell catheter has been ordered. 12/17: Patient status appears to be much improved but she does continue to have concerns about nausea. Consult is in place with GI. Nephrology is following for acute kidney injury and continued on IV fluids at 100 mL per hour. She is continued on Zyvox for VRE urinary tract infection. Anticipate discharge back to residential on Sunday or Sunday. 12/18: Patient has been seen by Dr. Gonzalez with possibility of central etiology for her nausea especially with her positional symptoms and visual field issues. Dr. Negro has cleared for discharge. Repeat BUN 13 and creatinine 1.07. patient's daughter is concerned about her change in overall health and mental status since September when all her illnesses started. Patient appears to be somewhat paranoid today. Marinol decreased to 2.5 mg twice daily. 12/19: Patient has been seen by neurology. MRI showed mild diffuse age-related cerebral atrophy and moderate chronic small vessel ischemic change. Persistent right-sided paranasal sinus disease possibly acute sinusitis. Electrolytes are improved from yesterday. Attempted to determine when Marinol was started. It appears that was started at [facility] on her last hospitalization in November. Patient is able to state the city, month and year. 12/20: patient's mental status is slightly improved today. She is complaining of feeling that things are getting stuck in her esophagus. She was evaluated by speech therapy. GI has signed off but spoke with Dr. Guzman and she will reevaluate. Esophagram was ordered. IV fluids changed to saline lock and Lasix 1 ordered. 12/21: Patient has been seen by Dr. Julien Guzman. Esophagram was negative with no plan for any intervention at this time. Plan to encourage oral intake, dietitian consult for protein supplement BUN 10 and creatinine 0.96. Nephrology is following. Hemoglobin is stable at 8.8. Anticipate discharge back to [facility] tomorrow. 12/22: patient continues to have gangrenous in his food is put in her mouth. She states she has not had a bowel movement for greater than 1 week. Dulcolax suppository added. Marinol decreased to 2.5 mg daily. 12/25: Over the weekend, family was requesting information about PEG tube placement deferred to GI service as patient continued to have retching and unable to take in food. Patient refused PEG. Patient complains that she can not taste normal. Consult with Dr. Garcia if amiodarone could be causing/contribution to dysgeusia. Zyvox has been discontinued by Dr. Martinez. 12/26: patient continues to have significant retching. Hemoglobin is at 7.3. Consults added for psychiatry for psychiatric reasons for retching as well as patient has stated to her nurse to tell her family to let her . Consult added with Dr. Rondon to rule out paraneoplastic syndrome. Ultrasound of the abdomen right upper quadrant ordered. 12/27: Right upper quadrant ultrasound was negative. Patient has been seen by Dr. Lopez. Echocardiogram is pending. TSH. He does not feel swallowing difficulty is due to amiodarone. H. pylori ordered. Dr. Gonzalez he is scheduled patient for EGD on December 28. This is on hold. HIDA scan has been ordered. Patient is more confused today. Objective - Vital Signs Vital signs: Vital Signs Temp 97.7 F 12/27/16 07:00 Pulse 74 12/27/16 08:00 Resp 20 12/27/16 08:00 BP 135/76 12/27/16 07:00 Pulse Ox 95 12/27/16 07:00 Intake & Output 12/26/16 12/27/16 12/27/16 18:59 06:59 18:59 Intake Total 200 840 0 Output Total 800 400 Balance -600 840 -400 Weight 82 kg 76.5 kg Intake: Intake, IV Titration 800 Amount Sodium Chloride 0.9% 1, 800 000 ml @ 50 mls/hr IV . Q20H [facility] Rx#:[id number] Oral 200 40 0 Output: Urine 800 400 Other: Voiding Method Indwelling Catheter Indwelling Catheter Indwelling Catheter # Voids 0 # Bowel Movements 0 - Exam General appearance: no average body habitus, cooperative, no disheveled, mild distress, no morbidly obese, no no acute distress, no obese, no severe distress , thin - EENT Eyes: no abnormal pupil, no anicteric sclerae, no disc margins sharp, no edentulous, no EOMI, no PERRLA, no fundus normal, no photophobia, no dentition normal, no poor dentition, no ptosis, no scleral icterus, normal appearance ENT: no hard of hearing, no hearing grossly normal, no NA/AT, normal oropharynx , no other, no pharyngeal erythema, no thrush, no tonsillar exudates, no tonsillar swelling Ears: bilateral: normal, bulging - Neck Neck: no lymphadenopathy, normal ROM, no other, no rigidity, no stridor, no thyromegaly Carotids: bilateral: upstroke normal, upstroke delayed Thyroid: bilateral: normal size - Respiratory Respiratory: bilateral: diminished, dullness, rales, rhonchi, wheezing - Cardiovascular Rhythm: regular Heart sounds: normal: S1, S2 Abnormal Heart Sounds: systolic murmur, S3 Gallop - Gastrointestinal Scar tissue from recent surgery and the midline with no sign of infection but had large keloid and area of old hematoma on it. General gastrointestinal: no absent bowel sounds, decreased bowel sounds, distended, no hepatomegaly, no hyperactive bowel sounds, normal bowel sounds, no organomegaly, no rigid, scaphoid, soft, no splenomegaly, tenderness, no umbilical hernia, no ventral hernia - Integumentary Integumentary: no calor, cellulitis, no cyanotic, no decreased turgor, no flushed, no jaundiced, no normal, no normal turgor, pale, rash, no ulcer - Neurologic Neurologic: CNII-XII intact - Musculoskeletal Musculoskeletal: gait normal, generalized weakness, strength equal bilaterally - Psychiatric Psychiatric: A&O x's 3, no appropriate affect, no intact judgment & insight - Labs CBC & Chem 7: 12/27/16 08:15 12/26/16 07:52 Labs: Abnormal Lab Results - Last 24 Hours (Table) 12/27/16 Range/Units 08:15 RBC 2.34 L (3.80-5.40) m/uL Hgb 7.3 L (11.4-16.0) gm/dL Hct 21.7 L (34.0-46.0) % RDW 17.0 H (11.5-15.5) % Plt Count 114 L (150-450) k/uL Assessment and Plan Plan: 1 metabolic encephalopathy secondary to infection, anemia, lower back pain, side effect medication along with UTI. Treat underlying disease. MRI as above. 2 sepsis with VRE UTI: With patient's current condition patient will be on IV antibiotics continue hydration watch symptoms closely repeat UA and wait for culture, with the any unusual infections specially with the resistant bacteria in the past will have patient seen infectious disease. 3 acute kidney injury most likely ATN with chronic kidney disease: Continue hydration repeat BUN/creatinine daily for the next few days. 4 recurrent abdominal pain with no significant abnormalities on CAT scan. 5 right-sided hip pain with no clear evidence of trauma recently with x-ray showing osteoarthrosis 6 recurrent anemia with blood transfusion different occasion last few weeks hemoglobin has been stable at this point continue to watch for any further recurrent bleed. 7 chronic edema: Has been on diuretics doing well. 8 A. fib with RVR with history of paroxysmal atrial fibrillation: Patient has been on Eliquis 5 mg twice a day along with metoprolol 100 mg daily and amiodarone 200 mg a day pulse rates under control currently. 9 hyperlipidemia: Has been on Lipitor. 10 lower back pain with worsening symptom will continue patient on smaller dose of hydrocodone or tramadol along with mild muscle relaxer. 11 recent history of hemicolectomy with complication: Patient still been watch by surgery. No obstruction this time. 12. metabolic acidosis. IV fluids changed to D5 half normal saline with KCl. 13.dysphagia with lack of appetite and dysgeusia. Esophagram normal. Dr. Guzman no need for intervention. Possibly due to constipation. Dulcolax suppository ordered. psychiatry consult, oncology consult for rule out paraneoplastic syndrome, cardiology consult rule out amiodarone as possible cause. EGD scheduled for with Dr. Gonzalez. CODE STATUS: Full code. Discharge plan: Return to [facility] Impression and plan of care have been directed as dictated by the signing physician. Mayi Lindsay nurse practitioner acting as scribe for signing physician. Time with Patient: Greater than 30
[2016-12-27] MEDS: SODIUM CHLORIDE 0.9% 1,000 ML IV SCH (14:17)
--- NOTE | 2016-12-27 14:55 | P.CN ---
Psychiatric Consult - . Consult date: 12/27/16 Consult:: I reviewed the medical record and attempted to interview Mrs. Ovetron. She was markedly fatigued and appeared short of breath. She had difficulty concentrating and attending to the interview. She kept her eyes closed during the interview. Her voice was so weak that it was almost inaudible. I was unable to conduct a full psychiatric assessment due to her level of medical disability. Please reconsult when she is medically stable. 12/27/16 14:52
--- NOTE | 2016-12-27 17:43 | PN ---
Mrs. Overton is a 76-year-old female who was admitted with progressive nausea, poor appetite and weight loss. She had anemia. She is feeling better today. Her breathing is better. She denies any symptoms of chest pain. She denies any dizziness or palpitation. She denies any arrhythmia. She continues on amiodarone 200 mg daily, Eliquis 5 mg twice a day, Lipitor 10 mg daily, metoprolol succinate 50 mg daily. PHYSICAL EXAMINATION: Blood pressure 135/70 with a heart rate in the 70s. LUNGS: Clear. HEART: Regular rate, rhythm. S1, S2. No S3. No rub. ABDOMEN: Soft, nontender. Positive bowel sounds. EXTREMITIES: No edema. Lab data revealed a hemoglobin of 7.3. She had an echocardiogram that showed an ejection fraction of 50% to 55% with mild tricuspid regurgitation. Reviewing the data obtained from [facility], patient had an echocardiogram in September of 2016 that was reported showing normal systolic function. Transesophageal echocardiogram done in September as well showed an ejection fraction of 45% with evidence of tricuspid regurgitation. At that time the patient was intubated postoperatively and being evaluated for possible endocarditis. IMPRESSION: 1. Renal failure, resolved, related to dehydration and poor appetite. 2. Paroxysmal atrial fibrillation; in sinus mechanism since that time. 3. Prior episode of gastrointestinal bleeding, stable. 4. Hyperlipidemia. 5. Hypertension. 6. Abdominal pain workup in progress. 7. Poor appetite. RECOMMENDATIONS: From the cardiac standpoint, there is no evidence of active abnormality at this time. I will cut down the dose of amiodarone to 100 mg daily. I do not believe that this is contributing to her swallowing issue. Depending on her hemoglobin, the anticoagulation will be continued. Will see her on as-needed basis. Please feel free to call us for any questions.
[2016-12-27] MEDS: MIRTAZAPINE 15 MG TAB PO SCH (18:02)
[2016-12-27] MEDS ORDERED: RX INFO: IV CONTRAST WAS GIVEN 1 EACH MISC MISCELLANE PRN (18:26)
--- NOTE | 2016-12-27 18:46 | P.CONS ---
History of Present Illness - Reason for Consult Consult date: 12/27/16 history of breast cancer, concerns for a paraneoplastic syndrome Requesting physician: Mayi Lindsay - Chief Complaint AMS, dehydration - History of Present Illness Ms. Overton is a very pleasant and miildly confused female pt who had bilateral mastectomies in Sep 2016, she had previous right breast core biopsy in Jul. 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 Pt had reconstruction. She did not have chemo or radiation that she remembers, there are no records here of treatment. We are seeing pt for concerns of persistent vomiting and possible paraneoplastic syndrome. Pt vomits twice while we are in the room, small amt of clear/yellow/green liquid, no blood noted. Review of Systems ROS unobtainable: due to mental status Past Medical History Past Medical History: Cancer, GERD/Reflux, Hyperlipidemia, Hypertension Additional Past Medical History / Comment(s): Breast CA status post bilateral mastectomy and implant placement September 2016, ischemic bowel status post exploratory laparotomy History of Any Multi-Drug Resistant Organisms: Other MDRO Past Surgical History: Breast Surgery, Orthopedic Surgery Additional Past Surgical History / Comment(s): LEFT SHOULDER. LEFT FOOT. Bilateral mastectomy in september of 2016, ex-lap with SBR for ischmemic bowl on 09/29/16 Past Anesthesia/Blood Transfusion Reactions: Motion Sickness, Postoperative Nausea & Vomiting (PONV) Additional Past Anesthesia/Blood Transfusion Reaction / Comm: PATIENT STATES HER TEETH IMPLANTS WERE DISLODGED DURING INTUBATION AND SHE SWALLOWED A TOOTH. Past Psychological History: No Psychological Hx Reported Smoking Status: Former smoker Past Alcohol Use History: None Reported Additional Past Alcohol Use History / Comment(s): Quit in 1984, smoked less than 1/2 PPD for 25 yrs. Past Drug Use History: None Reported - Past Family History Mother Family Medical History: No Reported History Medications and Allergies Home Medications Medication Instructions Recorded Confirmed Type Atorvastatin [Lipitor] 10 mg PO HS@209907/31/16 12/14/16 History Metoprolol Succinate [Toprol XL] 100 mg PO DAILY@2100 07/31/16 12/14/16 History Omeprazole 20 mg PO DAILY 07/31/16 12/14/16 History Amiodarone [Cordarone] 200 mg PO DAILY 11/24/16 12/14/16 History Apixaban [Eliquis] 5 mg PO BID 11/24/16 12/14/16 History Ferrous Sulfate [Feosol] 325 mg PO DAILY 11/24/16 12/14/16 History Sennosides-Docusate Sodium 1 tab PO BID 11/24/16 12/14/16 History [Senokot-S] Acetaminophen Tab [Tylenol Tab] 650 mg PO Q4H PRN 12/14/16 12/14/16 History Cholecalciferol [Vitamin D3] 2,000 unit PO HS 12/14/16 12/14/16 History Cyanocobalamin [Vitamin B-12] 500 mcg PO DAILY 12/14/16 12/14/16 History Darbepoetin Matty [Aranesp] 40 mcg SQ Q30D 12/14/16 12/15/16 History Dronabinol [Marinol] 5 mg PO BID 12/14/16 12/14/16 History Furosemide [Lasix] 40 mg PO MOWEFR 12/14/16 12/14/16 History Lactose-Reduced Food [Ensure Plus] 1 can PO TID BETWEEN MEALS 12/14/16 12/14/16 History Melatonin 6 mg PO HS 12/14/16 12/14/16 History Potassium Chloride [Klor-Con] 20 meq PO DAILY 12/14/16 12/14/16 History Allergies Allergy/AdvReac Type Severity Reaction Status Date / Time No Known Allergies Allergy Verified 12/14/16 23:06 Physical Exam Vitals: Vital Signs Temp Pulse Pulse Resp BP Pulse Ox 12/27/16 16:25 63 74 20 12/27/16 15:00 98.3 F 63 20 150/74 96 12/27/16 08:00 69 74 20 12/27/16 07:00 97.7 F 69 20 135/76 95 12/26/16 23:55 97.5 F L 20 154/74 97 Intake and Output 12/27/16 12/27/16 12/27/16 06:59 14:59 22:59 Intake Total 400 0 Output Total 400 500 Balance 400 -400 -500 Intake: Intake, IV Titration 400 Amount Sodium Chloride 0.9% 1, 400 000 ml @ 50 mls/hr IV . Q20H [facility] Rx#:[id number] Oral 0 Output: Urine 400 500 Other: Voiding Method Indwelling Catheter Indwelling Catheter # Bowel Movements 0 Weight 76.5 kg - Constitutional General appearance: cooperative, mild distress, obese - EENT Eyes: anicteric sclerae ENT: normal oropharynx - Neck Neck: no lymphadenopathy - Respiratory Respiratory: bilateral: diminished - Cardiovascular Heart sounds: normal: S1, S2 leg Peripheral Edema: bilateral: 1+, Pitting - Gastrointestinal General gastrointestinal: no absent bowel sounds, no decreased bowel sounds, no distended, no hepatomegaly, no hyperactive bowel sounds, normal bowel sounds, no organomegaly, no rigid, no scaphoid, soft, no splenomegaly, tenderness, no umbilical hernia, no ventral hernia - Integumentary Integumentary: pale - Neurologic Neurologic: CNII-XII intact - Musculoskeletal Musculoskeletal: generalized weakness - Psychiatric was able to answer questions about her PMH but she became tired and then her answers were not appropriate for the conversation, calm Psychiatric: no intact judgment & insight Results CBC & Chem 7: 12/27/16 08:15 12/26/16 07:52 Labs: Abnormal Lab Results - Last 24 Hours (Table) 12/27/16 Range/Units 08:15 RBC 2.34 L (3.80-5.40) m/uL Hgb 7.3 L (11.4-16.0) gm/dL Hct 21.7 L (34.0-46.0) % RDW 17.0 H (11.5-15.5) % Plt Count 114 L (150-450) k/uL Comments: reviewed barium swallow report Chest x-ray: report reviewed CT scan - abdomen: report reviewed CT scan - pelvis: report reviewed US - abdomen: report reviewed Assessment and Plan (1) Breast cancer Narrative/Plan: All scans have been reviewed and medical records back to Jul. Case discussed with GI, would like EGD for visualization and possible biopsies. Tumor markers have been ordered. We will f/u on testing. Cont supportive care including antiemetics, clear liquids only and IV fluids. Status: Chronic
--- NOTE | 2016-12-27 20:26 | CT ---
EXAMINATION TYPE: CT chest w con DATE OF EXAM: 12/27/2016 8:06 PM COMPARISON: NONE HISTORY: Decreased appetite, nausea and vomiting. History of breast cancer. CT DLP: 472.40 mGycm Automated exposure control for dose reduction was used. CONTRAST: CT scan of the chest is performed with IV Contrast, patient injected with 100 mL of Omnipaque 300. FINDINGS: There are bilateral pleural effusions. Heart is enlarged. There is no pericardial effusion. Thoracic aorta is atheromatous. There is no evidence of aneurysm. I see no definite filling defect in the pulm onary arteries. There is suboptimal contrast density in the pulmonary arteries. There are no hilar ma sses. There is no mediastinal adenopathy. There are bilateral breast implants noted. There is no adre nal mass. There is a 1 cm cyst on the anterior left kidney. There is no evidence of a pulmonary mass. There is patchy atelectasis at the lung bases. There are some spondylotic changes in the thoracic sp ine. There is right axillary pacemaker noted. There is atherosclerotic vascular calcification. IMPRESSION: No evidence of pulmonary embolism. There are pleural effusions and cardiomegaly. This co uld relate to congestive heart failure. The pleural fluid is new compared to the recent CT scan of th e abdomen of 12/15/2016.
[2016-12-27] MEDS: CHOLECALCIFEROL 1,000 UNIT TAB PO SCH (21:21)
[2016-12-27] MEDS: ATORVASTATIN 10 MG TAB PO SCH (21:21)
--- NOTE | 2016-12-27 23:14 | P.PN ---
Subjective Patient now presents from [facility] to [facility] by EMS for dehydration and elevated creatinine. CAT scan of the brain showed cerebral atrophy with right-sided maxillary and ethmoid sinusitis and no change compared to prior. Chest x-ray shows no acute cardiopulmonary disease. On recent blood draw her BUN was 35 and creatinine 3.10 and repeat here is 39 and 3.50. Patient is complaining of pain all over especially in the back and the hips right more so than left. Apparently she has had falls at [facility]. Blood pressure was low with a heart rate of 47. Apparently patient has not been eating and drinking and had worsening confusion. Patient does complain of nausea without vomiting and complains of dizziness with movement. White count 6.7, hemoglobin 9.7. BUN 39 and creatinine 3.5. Urinalysis was turbid, blood trace, leukoesterase large, WBC 75, WBC clumps many, bacteria many. Urine drug screen was positive for marijuana and patient is on Marinol. Patient was started on Levaquin and admitted to the [facility] floor. Antibiotic was subsequently changed to Zyvox as her last urine culture done on November 24 was enterococcus gallinarum, multidrug resistant. Right hip x-ray was done that showed osteoarthrosis with no acute abnormality. CAT scan of the abdomen and pelvis without contrast has been done and report is pending. Patient has been seen by Dr. Penaloza for non-oliguric acute kidney injury. the nausea and retching are further improved. Still not eating. Patient's family is concerned. Relates that the mother's been ill since September with similar symptoms. Upper GI without obstruction with a history of stricture. Objective - Vital Signs Vital signs: Vital Signs Temp 98.3 F 12/27/16 15:00 Pulse 74 12/27/16 16:25 Resp 20 12/27/16 16:25 BP 150/74 12/27/16 15:00 Pulse Ox 96 12/27/16 15:00 Intake & Output 12/27/16 12/27/16 12/28/16 06:59 18:59 06:59 Intake Total 840 0 0 Output Total 900 Balance 840 -900 0 Weight 76.5 kg Intake: Intake, IV Titration 800 Amount Sodium Chloride 0.9% 1, 800 000 ml @ 50 mls/hr IV . Q20H [facility] Rx#:[id number] Oral 40 0 0 Output: Urine 900 Other: Voiding Method Indwelling Catheter Indwelling Catheter # Bowel Movements 0 - Exam en: This is a 76-year-old female. HEENT: Head is atraumatic, normocephalic. Pupils equal, round. Sclerae is anicteric. NECK: Supple. No JVD. No lymphadenopathy. No thyromegaly. LUNGS: Clear to auscultation. No wheezes or rhonchi. No intercostal retractions. HEART: Regular rate and rhythm. No murmur. ABDOMEN: Soft. Bowel sounds are present. No masses. Generalized tenderness. EXTREMITIES: Positive bilateral pedal edema. No calf tenderness. NEUROLOGICAL: Patient is awake, alert and oriented x1 - Labs CBC & Chem 7: 12/27/16 08:15 12/26/16 07:52 Labs: Abnormal Lab Results - Last 24 Hours (Table) 12/27/16 Range/Units 08:15 RBC 2.34 L (3.80-5.40) m/uL Hgb 7.3 L (11.4-16.0) gm/dL Hct 21.7 L (34.0-46.0) % RDW 17.0 H (11.5-15.5) % Plt Count 114 L (150-450) k/uL Laboratory Results WBC 7.1 k/uL (3.8-10.6) 12/27/16 08:15 RBC 2.34 m/uL (3.80-5.40) L 12/27/16 08:15 Hgb 7.3 gm/dL (11.4-16.0) L 12/27/16 08:15 Hct 21.7 % (34.0-46.0) L 12/27/16 08:15 MCV 92.4 fL (80.0-100.0) 12/27/16 08:15 MCH 31.3 pg (25.0-35.0) 12/27/16 08:15 MCHC 33.9 g/dL (31.0-37.0) 12/27/16 08:15 RDW 17.0 % (11.5-15.5) H 12/27/16 08:15 Plt Count 114 k/uL (150-450) L 12/27/16 08:15 Neutrophils % 65 % 12/14/16 20:54 Lymphocytes % 28 % 12/14/16 20:54 Monocytes % 5 % 12/14/16 20:54 Eosinophils % 1 % 12/14/16 20:54 Basophils % 0 % 12/14/16 20:54 Neutrophils # 4.3 k/uL (1.3-7.7) 12/14/16 20:54 Lymphocytes # 1.9 k/uL (1.0-4.8) 12/14/16 20:54 Monocytes # 0.4 k/uL (0-1.0) 12/14/16 20:54 Eosinophils # 0.1 k/uL (0-0.7) 12/14/16 20:54 Basophils # 0.0 k/uL (0-0.2) 12/14/16 20:54 Hypochromasia Slight 12/19/16 07:50 Anisocytosis Slight 12/27/16 08:15 Macrocytosis Slight 12/19/16 07:50 PT 15.3 sec (9.0-12.0) H 12/14/16 20:54 INR 1.6 (<1.1) 12/14/16 20:54 APTT 28.0 sec (22.0-30.0) 12/14/16 20:54 Sodium 143 mmol/L (137-145) 12/26/16 07:52 Potassium 3.4 mmol/L (3.5-5.1) L 12/26/16 07:52 Chloride 114 mmol/L (98-107) H 12/26/16 07:52 Carbon Dioxide 18 mmol/L (22-30) L 12/26/16 07:52 Anion Gap 11 mmol/L 12/26/16 07:52 BUN 9 mg/dL (7-17) 12/26/16 07:52 Creatinine 0.64 mg/dL (0.52-1.04) 12/26/16 07:52 Est GFR (MDRD) Af Amer >60 (>60 ml/min/1.73 sqM) 12/26/16 07:52 Est GFR (MDRD) Non-Af >60 (>60 ml/min/1.73 sqM) 12/26/16 07:52 Glucose 87 mg/dL (74-99) 12/26/16 07:52 POC Glucose (mg/dL) 117 mg/dL (75-99) H 12/14/16 20:56 POC Glu Supply Chain Coordinator ID Fifi Garibay 12/14/16 20:56 Plasma Lactic Acid Deion 1.9 mmol/L (0.7-2.0) 12/14/16 20:54 Calcium 7.6 mg/dL (8.4-10.2) L 12/26/16 07:52 Magnesium 1.9 mg/dL (1.6-2.3) 12/26/16 07:52 Iron 33 ug/dL (37-170) L 12/14/16 20:54 TIBC 155 ug/dL (265-497) L 12/14/16 20:54 % Saturation 21.3 % (20-50) 12/14/16 20:54 Ferritin 298 ng/mL (11-264) H 12/14/16 20:54 Total Bilirubin 1.1 mg/dL (0.2-1.3) 12/14/16 20:54 AST 30 U/L (14-36) 12/14/16 20:54 ALT 42 U/L (9-52) 12/14/16 20:54 Alkaline Phosphatase 82 U/L (38-126) 12/14/16 20:54 Total Creatine Kinase 76 U/L (30-135) 12/14/16 20:54 CK-MB (CK-2) 0.6 ng/mL (0.0-2.4) 12/14/16 20:54 CK-MB (CK-2) Rel Index 0.8 12/14/16 20:54 Troponin I 0.022 ng/mL (0.000-0.034) 12/14/16 20:54 Total Protein 5.8 g/dL (6.3-8.2) L 12/14/16 20:54 Albumin 2.7 g/dL (3.5-5.0) L 12/14/16 20:54 Lipase 70 U/L (23-300) 12/26/16 07:52 CA 15-3 Antigen 20.1 U/mL (<35.1) 12/26/16 07:52 TSH 0.936 mIU/L (0.465-4.680) 12/26/16 07:52 Urine Color Yellow 12/14/16 20:52 Urine Appearance Turbid (Clear) H 12/14/16 20:52 Urine pH 5.0 (5.0-8.0) 12/14/16 20:52 Ur Specific [place] 1.014 (1.001-1.035) 12/14/16 20:52 Urine Protein 1+ (Negative) H 12/14/16 20:52 Urine Glucose (UA) Negative (Negative) 12/14/16 20:52 Urine Ketones Negative (Negative) 12/14/16 20:52 Urine Blood Trace (Negative) H 12/14/16 20:52 Urine Nitrate Negative (Negative) 12/14/16 20:52 Urine Bilirubin 1+ (Negative) H 12/14/16 20:52 Urine Urobilinogen 2.0 mg/dL (<2.0) 12/14/16 20:52 Ur Leukocyte Esterase Large (Negative) H 12/14/16 20:52 Urine WBC 75 /hpf (0-5) H 12/14/16 20:52 Urine WBC Clumps Many /hpf (None) H 12/14/16 20:52 Ur Squamous Epith Cells 2 /hpf (0-4) 12/14/16 20:52 Urine Bacteria Many /hpf (None) H 12/14/16 20:52 Hyaline Casts 631 /lpf (0-2) H 12/14/16 20:52 Urine Opiates Screen Not Detected (NotDetected) 12/14/16 20:52 Ur Oxycodone Screen Not Detected (NotDetected) 12/14/16 20:52 Urine Methadone Screen Not Detected (NotDetected) 12/14/16 20:52 Ur Propoxyphene Screen Not Detected (NotDetected) 12/14/16 20:52 Ur Barbiturates Screen Not Detected (NotDetected) 12/14/16 20:52 U Tricyclic Antidepress Not Detected (NotDetected) 12/14/16 20:52 Ur Phencyclidine Scrn Not Detected (NotDetected) 12/14/16 20:52 Ur Amphetamines Screen Not Detected (NotDetected) 12/14/16 20:52 U Methamphetamines Scrn Not Detected (NotDetected) 12/14/16 20:52 U Benzodiazepines Scrn Not Detected (NotDetected) 12/14/16 20:52 Urine Cocaine Screen Not Detected (NotDetected) 12/14/16 20:52 U Marijuana (THC) Screen Detected (NotDetected) H 12/14/16 20:52 Microbiology 12/14/16 21:06 Blood Blood Culture - Final No Growth after 144 hours 12/15/16 13:15 Urine,Catheterized Urine Culture - Final Assessment and Plan (1) Acute renal failure Narrative/Plan: 76-year-old woman with multiple medical troubles presents to Hospital acutely ill. Has acute renal failure showing some improvement. Urinary infection. Recent urine infection with vancomycin-resistant enterococci. Currently receiving Zyvox and being monitored. The significant somewhat better today with hydration and control of her nausea. Does have much less nausea and emesis today. She over still quite miserable. Receiving anxiolytics and some pain control. Laboratories being followed. Her nutritional supplementation when able. Patient's son was present. Relates that in September before the mother became ill. She was independent. Driving. Doing her own shopping preparing her own meals. Constantly they are quite concerned about her drastic overall decline. Has been seen by gastroenterology. Plan for EGD tomorrow to further evaluate for the refractory nausea and retching. Neurologic consult performed, work up negative so far. Marinol to be held Discontinue Zyvox negative urine cultures, no change since she's been off antibiotic therapy. There has been a mild improvement of her status since Marinol has been held. But still not doing well overall. We'll not need antibiotic therapy or discharge Will go to rehab once her nausea improved. The patient's been seen by cardiology and echocardiogram was requested Also be seen by psychiatry for the possibility of a neurogenic etiology of her retching. Status: Acute (2) Altered mental status Status: Acute (3) Urinary tract infection Status: Acute
[2016-12-28 09:50] LABS: Anion Gap 9 mmol/L; Blood Urea Nitrogen 7 mg/dL (7-17); Calcium 7.6 mg/dL (8.4-10.2); Carbon Dioxide 21 mmol/L (22-30); Chloride 116 mmol/L (98-107); Glucose 82 mg/dL (74-99); Non-African American GFR(MDRD) >60 (>60 ml/min/1.73 sqM); Potassium 3.6 mmol/L (3.5-5.1); Sodium 146 mmol/L (137-145)
[2016-12-28] MEDS ORDERED: FUROSEMIDE 10 MG/ML 2 ML VIAL IV ONE (11:18)
--- NOTE | 2016-12-28 11:18 | P.PN ---
Subjective Patient is seen in follow-up for acute kidney injury. Renal injury resolved with creatinine at 0.54. Currently resting in bed. No vomiting or diarrhea. Oral intake is poor. Has a Jewell catheter (reinserted due to urinary retention ) in place and is nonoliguric. Patient doesn't respond much to verbal commands. No changes overnight. She underwent CT of the chest on December 27 which revealed bilateral pleural effusions without any evidence of pulmonary embolism. Vital signs are stable. General: The patient appeared well nourished and normally developed. HEENT: Head exam is unremarkable. Neck is without jugular venous distension. LUNGS: Lungs are clear to auscultation and percussion. Breath sounds decreased. HEART: Rate and Rhythm are regular. First and second heart sounds normal. No murmurs, rubs or gallops. ABDOMEN: Abdominal exam reveals normal bowel sounds. Non-tender and non- distended. No evidence of peritonitis. EXTREMITITES: Trace edema. Objective - Vital Signs Vital signs: Vital Signs Temp 97.6 F 12/28/16 07:00 Pulse 66 12/28/16 07:00 Resp 16 12/28/16 07:00 BP 164/70 12/28/16 07:00 Pulse Ox 94 L 12/28/16 07:00 Intake & Output 12/27/16 12/28/16 12/28/16 18:59 06:59 18:59 Intake Total 0 0 Output Total 900 825 Balance -900 -825 Weight 78 kg Intake: Oral 0 0 Output: Urine 900 825 Other: Voiding Method Indwelling Catheter Indwelling Catheter Indwelling Catheter # Bowel Movements 0 - Labs CBC & Chem 7: 12/27/16 08:15 12/28/16 09:02 Labs: Abnormal Lab Results - Last 24 Hours (Table) 12/28/16 Range/Units 09:02 Sodium 146 H (137-145) mmol/L Chloride 116 H (98-107) mmol/L Carbon Dioxide 21 L (22-30) mmol/L Calcium 7.6 L (8.4-10.2) mg/dL Assessment and Plan Plan: Assessment: #1. Nonoliguric acute kidney injury mostly prerenal in nature secondary to poor oral intake and vomiting. Resolved. Creatinine was 3.5 on admission and down to 0.52. #2. Hyperchloremic metabolic acidosis secondary to IV fluids. #3. Recent urinary tract infection with urine culture positive for enterococcus status post antibiotics. #4. Anemia. Iron replete. #5. Hypokalemia due to poor nutritional status. Magnesium replete. Plan: Encourage oral intake. Avoid nephrotoxic agents and hypotensive episodes. Maintain Jewell catheter for now. Consider urology evaluation due to persistent urinary retention. Continue NS at 50 cc/hr. Pt refusing PEG tube placement. EGD scheduled for today. Lasix 20 mg IV once today.
--- NOTE | 2016-12-28 13:42 | P.PN ---
Subjective 76-year-old female was hospitalized in to to 11/25/2016 for acute blood loss anemia with hemoglobin of 5.0 with intractable nausea with no vomiting she had recent hemicolectomy at [facility] she was hospitalized had blood transfusion her hemoglobin was stabilized and ended up going back [place] [facility] [place] she seen Dr. Quintanilla a regular basis. Earlier last year in September patient was transferred to [facility] for severe abdominal pain and severe anemia and end up going for exploratory laparotomy with SVR for ischemic bowel on 09/29/2016 and return to the OR for closure Handswen anastomosis 2 at [facility] on 09/30/2016. She had 2 different occasions in October when she presented to [facility] complaining of nausea and vomiting along with no bowel movement for several day she ended up going for EGD on November 27 was negative and colonoscopy was scheduled as an outpatient hemoglobin was pain above 7 did not require any further transfusion and did well going back to [facility] [place] her anticoagulation was resumed was doing better with it. Patient presented to [facility] in 12/14/2016 with change mental status worsening confusion dehydration significantly elevated creatinine BUN with stage III chronic kidney disease along with acute kidney injury possible ATN. Patient found to have UTI as well was started on IV antibiotics with Levaquin hydration and admitted to the hospital. Surprisingly continue complain of worsening abdominal pain along with worsening lower back pain and right sided hip pain with no recent injury. 12/16: Patient is continued on IV fluids at 100 mL per hour. Repeat BUN is 24 1.77. Patient's nausea is better but continues and scopolamine patch ordered. Patient has had very little urine output and Jewell catheter has been ordered. 12/17: Patient status appears to be much improved but she does continue to have concerns about nausea. Consult is in place with GI. Nephrology is following for acute kidney injury and continued on IV fluids at 100 mL per hour. She is continued on Zyvox for VRE urinary tract infection. Anticipate discharge back to [facility] on Sunday or Sunday. 12/18: Patient has been seen by Dr. Gonzalez with possibility of central etiology for her nausea especially with her positional symptoms and visual field issues. Dr. Negro has cleared for discharge. Repeat BUN 13 and creatinine 1.07. patient's daughter is concerned about her change in overall health and mental status since September when all her illnesses started. Patient appears to be somewhat paranoid today. Marinol decreased to 2.5 mg twice daily. 12/19: Patient has been seen by neurology. MRI showed mild diffuse age-related cerebral atrophy and moderate chronic small vessel ischemic change. Persistent right-sided paranasal sinus disease possibly acute sinusitis. Electrolytes are improved from yesterday. Attempted to determine when Marinol was started. It appears that was started at [facility] on her last hospitalization in November. Patient is able to state the city, month and year. 12/20: patient's mental status is slightly improved today. She is complaining of feeling that things are getting stuck in her esophagus. She was evaluated by speech therapy. GI has signed off but spoke with Dr. Guzman and she will reevaluate. Esophagram was ordered. IV fluids changed to saline lock and Lasix 1 ordered. 12/21: Patient has been seen by Dr. Julien Guzman. Esophagram was negative with no plan for any intervention at this time. Plan to encourage oral intake, dietitian consult for protein supplement BUN 10 and creatinine 0.96. Nephrology is following. Hemoglobin is stable at 8.8. Anticipate discharge back to [facility] tomorrow. 12/22: patient continues to have gangrenous in his food is put in her mouth. She states she has not had a bowel movement for greater than 1 week. Dulcolax suppository added. Marinol decreased to 2.5 mg daily. 12/25: Over the weekend, family was requesting information about PEG tube placement deferred to GI service as patient continued to have retching and unable to take in food. Patient refused PEG. Patient complains that she can not taste normal. Consult with Dr. Garcia if amiodarone could be causing/contribution to dysgeusia. Zyvox has been discontinued by Dr. Martinez. 12/26: patient continues to have significant retching. Hemoglobin is at 7.3. Consults added for psychiatry for psychiatric reasons for retching as well as patient has stated to her nurse to tell her family to let her . Consult added with Dr. Rondon to rule out paraneoplastic syndrome. Ultrasound of the abdomen right upper quadrant ordered. 12/27: Right upper quadrant ultrasound was negative. Patient has been seen by Dr. Lopez. Echocardiogram is pending. TSH. He does not feel swallowing difficulty is due to amiodarone. H. pylori ordered. Dr. Gonzalez he is scheduled patient for EGD on December 28. This is on hold. HIDA scan has been ordered. Patient is more confused today. 12/28: Patient has been seen by oncology with plan for tumor markers. CA 2729 is normal at 25.8 and CA 153 is 20.1 within normal limits. She has been seen by psychiatry the patient was unable to participate. CAT scan of the chest was negative for pulmonary embolism. There are pleural effusions and cardiomegaly could be related to congestive heart failure. Pleural fluid is new compared to recent CAT scan on 12/15/2016. Any cardiology, echo reports have been requested from [facility]. Objective - Vital Signs Vital signs: Vital Signs Temp 97.6 F 12/28/16 07:00 Pulse 66 12/28/16 07:00 Resp 16 12/28/16 07:00 BP 164/70 12/28/16 07:00 Pulse Ox 94 L 12/28/16 07:00 Intake & Output 12/27/16 12/28/16 12/28/16 18:59 06:59 18:59 Intake Total 0 0 Output Total 900 825 Balance -900 -825 Weight 78 kg Intake: Oral 0 0 Output: Urine 900 825 Other: Voiding Method Indwelling Catheter Indwelling Catheter Indwelling Catheter # Bowel Movements 0 - Exam General appearance: no average body habitus, cooperative, no disheveled, mild distress, no morbidly obese, no no acute distress, no obese, no severe distress , thin - EENT Eyes: no abnormal pupil, no anicteric sclerae, no disc margins sharp, no edentulous, no EOMI, no PERRLA, no fundus normal, no photophobia, no dentition normal, no poor dentition, no ptosis, no scleral icterus, normal appearance ENT: no hard of hearing, no hearing grossly normal, no NA/AT, normal oropharynx , no other, no pharyngeal erythema, no thrush, no tonsillar exudates, no tonsillar swelling Ears: bilateral: normal, bulging - Neck Neck: no lymphadenopathy, normal ROM, no other, no rigidity, no stridor, no thyromegaly Carotids: bilateral: upstroke normal, upstroke delayed Thyroid: bilateral: normal size - Respiratory Respiratory: bilateral: diminished, dullness, rales, rhonchi, wheezing - Cardiovascular Rhythm: regular Heart sounds: normal: S1, S2 Abnormal Heart Sounds: systolic murmur, S3 Gallop - Gastrointestinal Scar tissue from recent surgery and the midline with no sign of infection but had large keloid and area of old hematoma on it. General gastrointestinal: no absent bowel sounds, decreased bowel sounds, distended, no hepatomegaly, no hyperactive bowel sounds, normal bowel sounds, no organomegaly, no rigid, scaphoid, soft, no splenomegaly, tenderness, no umbilical hernia, no ventral hernia - Integumentary Integumentary: no calor, cellulitis, no cyanotic, no decreased turgor, no flushed, no jaundiced, no normal, no normal turgor, pale, rash, no ulcer - Neurologic Neurologic: CNII-XII intact - Musculoskeletal Musculoskeletal: gait normal, generalized weakness, strength equal bilaterally - Psychiatric Psychiatric: A&O x's 3, no appropriate affect, no intact judgment & insight - Labs CBC & Chem 7: 12/27/16 08:15 12/28/16 09:02 Labs: Abnormal Lab Results - Last 24 Hours (Table) 12/28/16 Range/Units 09:02 Sodium 146 H (137-145) mmol/L Chloride 116 H (98-107) mmol/L Carbon Dioxide 21 L (22-30) mmol/L Calcium 7.6 L (8.4-10.2) mg/dL Assessment and Plan Plan: 1 metabolic encephalopathy secondary to infection, anemia, lower back pain, side effect medication along with UTI. Treat underlying disease. MRI as above. 2 sepsis with VRE UTI: With patient's current condition patient will be on IV antibiotics continue hydration watch symptoms closely repeat UA and wait for culture, with the any unusual infections specially with the resistant bacteria in the past will have patient seen infectious disease. 3 acute kidney injury most likely ATN with chronic kidney disease: Continue hydration repeat BUN/creatinine daily for the next few days. 4 recurrent abdominal pain with no significant abnormalities on CAT scan. 5 right-sided hip pain with no clear evidence of trauma recently with x-ray showing osteoarthrosis 6 recurrent anemia with blood transfusion different occasion last few weeks hemoglobin has been stable at this point continue to watch for any further recurrent bleed. 7 chronic edema: Has been on diuretics doing well. 8 A. fib with RVR with history of paroxysmal atrial fibrillation: Patient has been on Eliquis 5 mg twice a day along with metoprolol 100 mg daily and amiodarone 200 mg a day pulse rates under control currently. 9 hyperlipidemia: Has been on Lipitor. 10 lower back pain with worsening symptom will continue patient on smaller dose of hydrocodone or tramadol along with mild muscle relaxer. 11 recent history of hemicolectomy with complication: Patient still been watch by surgery. No obstruction this time. 12. metabolic acidosis. IV fluids changed to D5 half normal saline with KCl. 13.dysphagia with lack of appetite and dysgeusia. Esophagram normal. Dr. Guzman no need for intervention. Possibly due to constipation. Dulcolax suppository ordered. psychiatry consult, oncology consult for rule out paraneoplastic syndrome, cardiology consult rule out amiodarone as possible cause. EGD scheduled for with Dr. Gonzalez. CODE STATUS: Full code. Discharge plan: Return to [facility] Impression and plan of care have been directed as dictated by the signing physician. Mayi Lindsay nurse practitioner acting as scribe for signing physician. Time with Patient: Greater than 30
[2016-12-28] MEDS ORDERED: IV FLUID CONTINUATION 700 ML IV ONE (14:41)
[2016-12-28] MEDS ORDERED: PROPOFOL 10 MG/ML 20 ML VIAL IV ONE (14:50)
--- NOTE | 2016-12-28 15:21 | P.PCN ---
Date of Procedure: 12/28/16 Procedure(s) Performed: Procedure: Esophagogastroduodenoscopy and biopsy. Preoperative diagnosis: Anorexia and nausea. Postoperative diagnosis: 1. Small sliding hiatal hernia with no obvious esophagitis or complicated reflux disease. 2. Antral gastritis with prominent pre-pyloric folds of uncertain clinical significance multiple biopsies obtained. 3. Biopsies also obtained from the duodenum and esophagus. Preparation and sedation: Was provided by anesthesia. Brief clinical history: The patient is a 76-year-old female who presented with worsening mental status and confusion as well as dehydration and significant elevation in her BUN and creatinine. The patient was found to have a urinary tract infection and was started on IV antibiotics. She had chronic stage III kidney disease and had acute kidney injury as well and has been followed closely with nephrology. We are asked to see her in regards to persistent nausea. The patient has history of hemicolectomy which she had at [facility] the last week in September 2016. 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 The patient was hospitalized last month for anemia and intractable nausea with no vomiting and she had been hospitalized for those complaints couple other times since her surgery in September and in November she had an upper endoscopy that was negative. The patient continued to have anorexia. A barium study did not show any obstructing lesion. Oncology asked that we proceed with upper endoscopy part of the evaluation of paraneoplastic syndrome. The patient had bilateral mastectomies last year. The details are summarized in the history and physical and dictated consultations. Procedure: With the patient on her left lateral decubitus position and after informed consent and adequate sedation, I passed the Olympus-GIF 160 video upper endoscope through the cricopharyngeus down the esophagus. GE junction was around 36 cm from the incisors and there was a small sliding hiatal hernia. The esophagus showed some erythema but no obvious ulcers or erosions. There were no strictures or Mancini's esophagus. The endoscope was then passed into the stomach which was insufflated with air and inspected in detail including the retroflex view in the cardia. There was some mottling and erythema diffusely and in the prepyloric area there were multiple prominent folds that I was not certain of the clinical significance I obtained multiple biopsies in that area. There was no obstruction to the gastric outlet. No pyloric channel ulcer. Duodenal bulb, post bulbar area and descending duodenum showed some erythema. I obtained multiple biopsies from the duodenum in addition to the biopsies from the antrum and esophagus then the endoscope was withdrawn. The patient tolerated the procedure well. Plan: I discussed these findings with the patient. Will await biopsy results. Will allow diet as tolerated.
[2016-12-28] MEDS: AMIODARONE 100 MG TAB PO SCH (15:35)
[2016-12-28] MEDS: METOPROLOL SUCCINATE (ER) 50 MG TAB.ER.24H PO SCH (15:35)
[2016-12-28] MEDS: PANTOPRAZOLE 40 MG TABLET PO SCH (15:35)
[2016-12-28] MEDS: SENNOSIDES-DOCUSATE SODIUM 1 EACH TAB PO SCH ×2 (15:35→21:37)
[2016-12-28 15:36] VITALS: BMI 26.9
[2016-12-28] MEDS: SODIUM CHLORIDE 0.9% 1,000 ML IV SCH (15:36)
[2016-12-28] MEDS: FERROUS SULFATE 325 MG TAB PO SCH (15:36)
[2016-12-28] MEDS: CYANOCOBALAMIN 500 MCG TAB PO SCH (15:36)
--- NOTE | 2016-12-28 17:53 | CONS ---
DATE OF CONSULTATION: REASON FOR CONSULTATION: Patient has nausea without any medical reason. I did review the chart and I did interview the patient, and at her bedside she had her daughter, her son and her [id number]. Patient was sitting in her bed, very alert and cooperative. HISTORY OF PRESENT ILLNESS: Patient is a 76-year-old white female who has been living on her own in her own house, very independent. Patient lost her of 55 years 2 years ago; as she said, "This coming May will be 2-year anniversary." Patient stated that she was having some anxiety after she lost him, but she was having Xanax 0.5 up to twice a day p.r.n. and she was able to deal with the grief at that time. She did refuse to go to any grief counseling or to start any medication for depression. In September of 2016 patient had bilateral mastectomy, then another couple of surgeries; according to her, she has been between hospital and rehab since the end of September 2016. Patient said, "I miss being home. My last time was 2015." Patient is complaining of poor appetite, having nausea every time she sees food or even if she smells food; she gets nauseous and starts to vomit. She stated that she was having trouble sleeping after her , and she was taking Melatonin p.r.n. She denied feeling hopeless or helpless, but according to her "sometimes it's very hard to deal with the loss, especially around the holidays." She did report moderate to severe degree of sadness, loss of interest, loss of energy and change in her sleep in addition to poor appetite with significant weight loss since September of 2016. PAST PSYCHIATRIC HISTORY: There is no previous inpatient or outpatient treatment. She was having Xanax after she lost her 2 years ago. There is no previous suicidal attempt. It seems that here during hospitalization she is on Remeron 7.5. PAST MEDICAL HISTORY: 1. Cancer. 2. Gastroesophageal reflex disease. 3. Hyperlipidemia. 4. Hypertension. 5. Status post bilateral mastectomy and implant placement in September of 2016. 6. Status post surgery for ischemic bowel. SUBSTANCE ABUSE HISTORY: Patient denied any substance abuse history. She stated that she used to smoke and she quit in 1984. Her home medications are: 1. Lipitor 10 mg at bedtime. 2. Toprol XL. 3. Prilosec. 4. Cordarone. 5. Eliquis. 6. Ferrous sulfate. 7. Vitamin D3. 8. Vitamin B12. 9. Lasix. 10. Marinol. 11. Melatonin. 12. Potassium chloride. ALLERGIES: NO KNOWN ALLERGY. BRIEF SOCIAL HISTORY: Patient was for 55 years and her suddenly with massive heart attack in February of 2015. 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 She has 5 grownup children, 18 grandchildren and 4 great-grandchildren. She has [place] living [place] on her own and she was very independent, driving herself, and she even stated that she went to [place] just prior to bilateral mastectomy. Since her surgery in September 2016, it seems that her life has been changed. Patient has a very good support system. MENTAL STATUS EXAMINATION: Patient presented as a female who is looking much younger than stated age. She appeared to attend to the interview. She had a distressed facial expression. She is alert, oriented to person and place but not to today's exact date. Her speech was not spontaneous, but coherent and goal-directed. Her affect was dysphoric. She denied any suicidal ideation or intent. She denied any homicidal ideation. She denied any psychotic feature or paranoia. She expressed some anxiety and grief due to her loss. Her memory is grossly intact. Insight and judgment are fair. IMPRESSION: 1. Adjustment disorder with mixed emotion, anxiety and depression. 2. Unresolved grief reaction. RECOMMENDATION: I will start the patient on a low dose of Xanax at 0.25 twice a day. I will increase the Remeron to 15 mg at bedtime. Patient does not need inpatient psychiatric hospitalization; however, she does need outpatient counseling to deal with her unresolved grief. I will continue to follow up to assess her mood and any side effects from medication as long as she is on the medical floor.
[2016-12-28] MEDS: MIRTAZAPINE 15 MG TAB PO SCH (21:36)
[2016-12-28] MEDS: ATORVASTATIN 10 MG TAB PO SCH (21:37)
[2016-12-28] MEDS: CHOLECALCIFEROL 1,000 UNIT TAB PO SCH (21:37)
[2016-12-28] MEDS: ALPRAZolam 0.25 MG TAB PO SCH (21:37)
[2016-12-28] MEDS: ONDANSETRON 4 MG/2 ML VIAL IVP PRN (22:03)
--- NOTE | 2016-12-28 22:19 | P.PN ---
Subjective Patient now presents from [facility] to [facility] emergency center by EMS for dehydration and elevated creatinine. CAT scan of the brain showed cerebral atrophy with right-sided maxillary and ethmoid sinusitis and no change compared to prior. Chest x-ray shows no acute cardiopulmonary disease. On recent blood draw her BUN was 35 and creatinine 3.10 and repeat here is 39 and 3.50. Patient is complaining of pain all over especially in the back and the hips right more so than left. Apparently she has had falls at [facility]. Blood pressure was low with a heart rate of 47. Apparently patient has not been eating and drinking and had worsening confusion. Patient does complain of nausea without vomiting and complains of dizziness with movement. White count 6.7, hemoglobin 9.7. BUN 39 and creatinine 3.5. Urinalysis was turbid, blood trace, leukoesterase large, WBC 75, WBC clumps many, bacteria many. Urine drug screen was positive for marijuana and patient is on Marinol. Patient was started on Levaquin and admitted to the [facility] floor. Antibiotic was subsequently changed to Zyvox as her last urine culture done on November 24 was enterococcus gallinarum, multidrug resistant. Right hip x-ray was done that showed osteoarthrosis with no acute abnormality. CAT scan of the abdomen and pelvis without contrast has been done and report is pending. Patient has been seen by Dr. Penaloza for non-oliguric acute kidney injury. the nausea and retching are further improved. Still not eating. Patient's family is concerned. Relates that the mother's been ill since September with similar symptoms. Upper GI without obstruction with a history of stricture. For EGD today Objective - Vital Signs Vital signs: Vital Signs Temp 98.4 F 12/28/16 21:51 Pulse 64 12/28/16 21:51 Resp 16 12/28/16 21:51 BP 161/74 12/28/16 21:51 Pulse Ox 96 12/28/16 21:51 Intake & Output 12/28/16 12/28/16 12/29/16 06:59 18:59 06:59 Intake Total 0 100 Output Total 825 1150 1400 Balance -825 1050 -1400 Weight 78 kg 78 kg Intake: IV 100 Oral 0 Output: Urine 825 1150 1400 Other: Voiding Method Indwelling Catheter Indwelling Catheter Indwelling Catheter # Bowel Movements 0 - Exam en: This is a 76-year-old female. HEENT: Head is atraumatic, normocephalic. Pupils equal, round. Sclerae is anicteric. NECK: Supple. No JVD. No lymphadenopathy. No thyromegaly. LUNGS: Clear to auscultation. No wheezes or rhonchi. No intercostal retractions. HEART: Regular rate and rhythm. No murmur. ABDOMEN: Soft. Bowel sounds are present. No masses. Generalized tenderness. EXTREMITIES: Positive bilateral pedal edema. No calf tenderness. NEUROLOGICAL: Patient is awake, alert and oriented x1 - Labs CBC & Chem 7: 12/27/16 08:15 12/28/16 09:02 Labs: Abnormal Lab Results - Last 24 Hours (Table) 12/28/16 Range/Units 09:02 Sodium 146 H (137-145) mmol/L Chloride 116 H (98-107) mmol/L Carbon Dioxide 21 L (22-30) mmol/L Calcium 7.6 L (8.4-10.2) mg/dL Laboratory Results WBC 7.1 k/uL (3.8-10.6) 12/27/16 08:15 RBC 2.34 m/uL (3.80-5.40) L 12/27/16 08:15 Hgb 7.3 gm/dL (11.4-16.0) L 12/27/16 08:15 Hct 21.7 % (34.0-46.0) L 12/27/16 08:15 MCV 92.4 fL (80.0-100.0) 12/27/16 08:15 MCH 31.3 pg (25.0-35.0) 12/27/16 08:15 MCHC 33.9 g/dL (31.0-37.0) 12/27/16 08:15 RDW 17.0 % (11.5-15.5) H 12/27/16 08:15 Plt Count 114 k/uL (150-450) L 12/27/16 08:15 Neutrophils % 65 % 12/14/16 20:54 Lymphocytes % 28 % 12/14/16 20:54 Monocytes % 5 % 12/14/16 20:54 Eosinophils % 1 % 12/14/16 20:54 Basophils % 0 % 12/14/16 20:54 Neutrophils # 4.3 k/uL (1.3-7.7) 12/14/16 20:54 Lymphocytes # 1.9 k/uL (1.0-4.8) 12/14/16 20:54 Monocytes # 0.4 k/uL (0-1.0) 12/14/16 20:54 Eosinophils # 0.1 k/uL (0-0.7) 12/14/16 20:54 Basophils # 0.0 k/uL (0-0.2) 12/14/16 20:54 Hypochromasia Slight 12/19/16 07:50 Anisocytosis Slight 12/27/16 08:15 Macrocytosis Slight 12/19/16 07:50 PT 15.3 sec (9.0-12.0) H 12/14/16 20:54 INR 1.6 (<1.1) 12/14/16 20:54 APTT 28.0 sec (22.0-30.0) 12/14/16 20:54 Sodium 146 mmol/L (137-145) H 12/28/16 09:02 Potassium 3.6 mmol/L (3.5-5.1) 12/28/16 09:02 Chloride 116 mmol/L (98-107) H 12/28/16 09:02 Carbon Dioxide 21 mmol/L (22-30) L 12/28/16 09:02 Anion Gap 9 mmol/L 12/28/16 09:02 BUN 7 mg/dL (7-17) 12/28/16 09:02 Creatinine 0.52 mg/dL (0.52-1.04) 12/28/16 09:02 Est GFR (MDRD) Af Amer >60 (>60 ml/min/1.73 sqM) 12/28/16 09:02 Est GFR (MDRD) Non-Af >60 (>60 ml/min/1.73 sqM) 12/28/16 09:02 Glucose 82 mg/dL (74-99) 12/28/16 09:02 POC Glucose (mg/dL) 117 mg/dL (75-99) H 12/14/16 20:56 POC Glu Claim Benefit Specialist ID Fifi Garibay 12/14/16 20:56 Plasma Lactic Acid Deion 1.9 mmol/L (0.7-2.0) 12/14/16 20:54 Calcium 7.6 mg/dL (8.4-10.2) L 12/28/16 09:02 Magnesium 1.9 mg/dL (1.6-2.3) 12/26/16 07:52 Iron 33 ug/dL (37-170) L 12/14/16 20:54 TIBC 155 ug/dL (265-497) L 12/14/16 20:54 % Saturation 21.3 % (20-50) 12/14/16 20:54 Ferritin 298 ng/mL (11-264) H 12/14/16 20:54 Total Bilirubin 1.1 mg/dL (0.2-1.3) 12/14/16 20:54 AST 30 U/L (14-36) 12/14/16 20:54 ALT 42 U/L (9-52) 12/14/16 20:54 Alkaline Phosphatase 82 U/L (38-126) 12/14/16 20:54 Total Creatine Kinase 76 U/L (30-135) 12/14/16 20:54 CK-MB (CK-2) 0.6 ng/mL (0.0-2.4) 12/14/16 20:54 CK-MB (CK-2) Rel Index 0.8 12/14/16 20:54 Troponin I 0.022 ng/mL (0.000-0.034) 12/14/16 20:54 Total Protein 5.8 g/dL (6.3-8.2) L 12/14/16 20:54 Albumin 2.7 g/dL (3.5-5.0) L 12/14/16 20:54 Lipase 70 U/L (23-300) 12/26/16 07:52 CA 15-3 Antigen 20.1 U/mL (<35.1) 12/26/16 07:52 CA 27-29 25.8 U/mL (0.0-38.5) 12/25/16 08:36 TSH 0.936 mIU/L (0.465-4.680) 12/26/16 07:52 Urine Color Yellow 12/14/16 20:52 Urine Appearance Turbid (Clear) H 12/14/16 20:52 Urine pH 5.0 (5.0-8.0) 12/14/16 20:52 Ur Specific [place] 1.014 (1.001-1.035) 12/14/16 20:52 Urine Protein 1+ (Negative) H 12/14/16 20:52 Urine Glucose (UA) Negative (Negative) 12/14/16 20:52 Urine Ketones Negative (Negative) 12/14/16 20:52 Urine Blood Trace (Negative) H 12/14/16 20:52 Urine Nitrate Negative (Negative) 12/14/16 20:52 Urine Bilirubin 1+ (Negative) H 12/14/16 20:52 Urine Urobilinogen 2.0 mg/dL (<2.0) 12/14/16 20:52 Ur Leukocyte Esterase Large (Negative) H 12/14/16 20:52 Urine WBC 75 /hpf (0-5) H 12/14/16 20:52 Urine WBC Clumps Many /hpf (None) H 12/14/16 20:52 Ur Squamous Epith Cells 2 /hpf (0-4) 12/14/16 20:52 Urine Bacteria Many /hpf (None) H 12/14/16 20:52 Hyaline Casts 631 /lpf (0-2) H 12/14/16 20:52 Urine Opiates Screen Not Detected (NotDetected) 12/14/16 20:52 Ur Oxycodone Screen Not Detected (NotDetected) 12/14/16 20:52 Urine Methadone Screen Not Detected (NotDetected) 12/14/16 20:52 Ur Propoxyphene Screen Not Detected (NotDetected) 12/14/16 20:52 Ur Barbiturates Screen Not Detected (NotDetected) 12/14/16 20:52 U Tricyclic Antidepress Not Detected (NotDetected) 12/14/16 20:52 Ur Phencyclidine Scrn Not Detected (NotDetected) 12/14/16 20:52 Ur Amphetamines Screen Not Detected (NotDetected) 12/14/16 20:52 U Methamphetamines Scrn Not Detected (NotDetected) 12/14/16 20:52 U Benzodiazepines Scrn Not Detected (NotDetected) 12/14/16 20:52 Urine Cocaine Screen Not Detected (NotDetected) 12/14/16 20:52 U Marijuana (THC) Screen Detected (NotDetected) H 12/14/16 20:52 Microbiology 12/14/16 21:06 Blood Blood Culture - Final No Growth after 144 hours 12/15/16 13:15 Urine,Catheterized Urine Culture - Final Assessment and Plan (1) Acute renal failure Narrative/Plan: 76-year-old woman with multiple medical troubles presents to Hospital acutely ill. Has acute renal failure showing some improvement. Urinary infection. Recent urine infection with vancomycin-resistant enterococci. Currently receiving Zyvox and being monitored. The significant somewhat better today with hydration and control of her nausea. Does have much less nausea and emesis today. She over still quite miserable. Receiving anxiolytics and some pain control. Laboratories being followed. Her nutritional supplementation when able. Patient's son was present. Relates that in September before the mother became ill. She was independent. Driving. Doing her own shopping preparing her own meals. Constantly they are quite concerned about her drastic overall decline. Has been seen by gastroenterology. Plan for EGD today to further evaluate for the refractory nausea and retching. Neurologic consult performed, work up negative so far. Marinol to be held Discontinue Zyvox negative urine cultures, no change since she's been off antibiotic therapy. There has been a mild improvement of her status since Marinol has been held. But still not doing well overall. We'll not need antibiotic therapy or discharge Will go to rehab once her nausea improved. The patient's been seen by cardiology and echocardiogram was requested Also be seen by psychiatry for the possibility of a neurogenic etiology of her retching. Status: Acute (2) Altered mental status Status: Acute (3) Urinary tract infection Status: Acute
[2016-12-29] MEDS: SODIUM CHLORIDE 0.9% 1,000 ML IV SCH (00:57)
[2016-12-29 10:11] LABS: Anion Gap 9 mmol/L; Blood Urea Nitrogen 6 mg/dL (7-17); Calcium 7.4 mg/dL (8.4-10.2); Carbon Dioxide 21 mmol/L (22-30); Chloride 113 mmol/L (98-107); Glucose 68 mg/dL (74-99); Non-African American GFR(MDRD) >60 (>60 ml/min/1.73 sqM); Potassium 3.1 mmol/L (3.5-5.1); Sodium 143 mmol/L (137-145)
[2016-12-29 10:15] LABS: Anisocytosis Slight; CH 31.8; CHCM 34.8; HCT 20.6 % (34.0-46.0); HDW 3.56; MCH 31.2 pg (25.0-35.0); Mean Platelet Volume 8.6; Poikilocytosis Slight; RBC 2.24 m/uL (3.80-5.40); RDW 18.4 % (11.5-15.5); WBC 5.1 k/uL (3.8-10.6)
[2016-12-29] MEDS ORDERED: FUROSEMIDE 10 MG/ML 2 ML VIAL IV ONE (10:36)
--- NOTE | 2016-12-29 10:53 | NM ---
EXAMINATION TYPE: NM hepatobiliary w EF DATE OF EXAM: 12/29/2016 10:38 AM COMPARISON: CT abdomen and pelvis December 15, 2016. HISTORY: Generalized abdominal pain and nausea. Ongoing vomiting. TECHNIQUE: After the intravenous administration of 5.5 mCi Tc 99m Mebrofenin hepatobiliary scintigrap hy is performed. Immediate images post injection. FINDINGS: There is satisfactory initial accumulation of tracer by the liver. The gallbladder is visualized wit hin 20 minutes. The small bowel activity is noted within 30 minutes. At one hour 8 ounces of oral e nsure plus is given to mimic CCK and gallbladder ejection fraction is calculated at 20 %, diminished from the normal range. Therefore there is no scintigraphic evidence of cystic or common bile duct ob struction to suggest acute cholecystitis. Diminished ejection fraction is consistent with chronic cho lecystitis or gallbladder dyskinesia. IMPRESSION: Ejection fraction is 20%, diminished from the normal range, scintigraphic findings sugges t gallbladder dyskinesia.
--- NOTE | 2016-12-29 11:53 | P.PN ---
Subjective 76-year-old female was hospitalized in to to 11/25/2016 for acute blood loss anemia with hemoglobin of 5.0 with intractable nausea with no vomiting she had recent hemicolectomy at [facility] she was hospitalized had blood transfusion her hemoglobin was stabilized and ended up going back to [facility] [place] which she seen Dr. Quintanilla a regular basis. 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 She had 2 different occasions in October when she presented to [facility] complaining of nausea and vomiting along with no bowel movement for several day she ended up going for EGD on November 27 was negative and colonoscopy was scheduled as an outpatient hemoglobin was pain above 7 did not require any further transfusion and did well going back to [facility] on the lodge her anticoagulation was resumed was doing better with it. Patient presented to [facility] in 12/14/2016 with change mental status worsening confusion dehydration significantly elevated creatinine BUN with stage III chronic kidney disease along with acute kidney injury possible ATN. Patient found to have UTI as well was started on IV antibiotics with Levaquin hydration and admitted to the hospital. Surprisingly continue complain of worsening abdominal pain along with worsening lower back pain and right sided hip pain with no recent injury. 12/16: Patient is continued on IV fluids at 100 mL per hour. Repeat BUN is 24 1.77. Patient's nausea is better but continues and scopolamine patch ordered. Patient has had very little urine output and Jewell catheter has been ordered. 12/17: Patient status appears to be much improved but she does continue to have concerns about nausea. Consult is in place with GI. Nephrology is following for acute kidney injury and continued on IV fluids at 100 mL per hour. She is continued on Zyvox for VRE urinary tract infection. Anticipate discharge back [facility] on Sunday or Sunday. 12/18: Patient has been seen by Dr. Gonzalez with possibility of central etiology for her nausea especially with her positional symptoms and visual field issues. Dr. Negro has cleared for discharge. Repeat BUN 13 and creatinine 1.07. patient's daughter is concerned about her change in overall health and mental status since September when all her illnesses started. Patient appears to be somewhat paranoid today. Marinol decreased to 2.5 mg twice daily. 12/19: Patient has been seen by neurology. MRI showed mild diffuse age-related cerebral atrophy and moderate chronic small vessel ischemic change. Persistent right-sided paranasal sinus disease possibly acute sinusitis. Electrolytes are improved from yesterday. Attempted to determine when Marinol was started. It appears that was started at [facility] on her last hospitalization in November. Patient is able to state the city, month and year. 12/20: patient's mental status is slightly improved today. She is complaining of feeling that things are getting stuck in her esophagus. She was evaluated by speech therapy. GI has signed off but spoke with Dr. Guzman and she will reevaluate. Esophagram was ordered. IV fluids changed to saline lock and Lasix 1 ordered. 12/21: Patient has been seen by Dr. Julien Guzman. Esophagram was negative with no plan for any intervention at this time. Plan to encourage oral intake, dietitian consult for protein supplement BUN 10 and creatinine 0.96. Nephrology is following. Hemoglobin is stable at 8.8. Anticipate discharge back to [facility] tomorrow. 12/22: patient continues to have gangrenous in his food is put in her mouth. She states she has not had a bowel movement for greater than 1 week. Dulcolax suppository added. Marinol decreased to 2.5 mg daily. 12/25: Over the weekend, family was requesting information about PEG tube placement deferred to GI service as patient continued to have retching and unable to take in food. Patient refused PEG. Patient complains that she can not taste normal. Consult with Dr. Garcia if amiodarone could be causing/contribution to dysgeusia. Zyvox has been discontinued by Dr. Martinez. 12/26: patient continues to have significant retching. Hemoglobin is at 7.3. Consults added for psychiatry for psychiatric reasons for retching as well as patient has stated to her nurse to tell her family to let her . Consult added with Dr. Rondon to rule out paraneoplastic syndrome. Ultrasound of the abdomen right upper quadrant ordered. 12/27: Right upper quadrant ultrasound was negative. Patient has been seen by Dr. Lopez. Echocardiogram is pending. TSH. He does not feel swallowing difficulty is due to amiodarone. H. pylori ordered. Dr. Gonzalez he is scheduled patient for EGD on December 28. This is on hold. HIDA scan has been ordered. Patient is more confused today. 12/28: Patient has been seen by oncology with plan for tumor markers. CA 2729 is normal at 25.8 and CA 153 is 20.1 within normal limits. She has been seen by psychiatry the patient was unable to participate. CAT scan of the chest was negative for pulmonary embolism. There are pleural effusions and cardiomegaly could be related to congestive heart failure. Pleural fluid is new compared to recent CAT scan on 12/15/2016. Any cardiology, echo reports have been requested from [facility]. 12/29:patient underwent HIDA scan that showed 20% EF. potassium of 3.1 will be replaced IV, hemoglobin 7.0 for which one unit of packed RBCs ordered. Patient has no IV access for this and PICC line has been ordered. Objective - Vital Signs Vital signs: Vital Signs Temp 97.0 F L 12/29/16 07:00 Pulse 66 12/29/16 07:00 Resp 18 12/29/16 07:00 BP 171/64 12/29/16 07:00 Pulse Ox 95 12/29/16 07:00 Intake & Output 12/28/16 12/29/16 12/29/16 18:59 06:59 18:59 Intake Total 100 60 Output Total 1150 1625 Balance -1050 -1565 Weight 78 kg 79 kg Intake: IV 100 Oral 60 Output: Urine 1150 1625 Other: Voiding Method Indwelling Catheter Indwelling Catheter # Bowel Movements 0 - Exam General appearance: no average body habitus, cooperative, no disheveled, mild distress, no morbidly obese, no no acute distress, no obese, no severe distress , thin - EENT Eyes: no abnormal pupil, no anicteric sclerae, no disc margins sharp, no edentulous, no EOMI, no PERRLA, no fundus normal, no photophobia, no dentition normal, no poor dentition, no ptosis, no scleral icterus, normal appearance ENT: no hard of hearing, no hearing grossly normal, no NA/AT, normal oropharynx , no other, no pharyngeal erythema, no thrush, no tonsillar exudates, no tonsillar swelling Ears: bilateral: normal, bulging - Neck Neck: no lymphadenopathy, normal ROM, no other, no rigidity, no stridor, no thyromegaly Carotids: bilateral: upstroke normal, upstroke delayed Thyroid: bilateral: normal size - Respiratory Respiratory: bilateral: diminished, dullness, rales, rhonchi, wheezing - Cardiovascular Rhythm: regular Heart sounds: normal: S1, S2 Abnormal Heart Sounds: systolic murmur, S3 Gallop - Gastrointestinal Scar tissue from recent surgery and the midline with no sign of infection but had large keloid and area of old hematoma on it. General gastrointestinal: no absent bowel sounds, decreased bowel sounds, distended, no hepatomegaly, no hyperactive bowel sounds, normal bowel sounds, no organomegaly, no rigid, scaphoid, soft, no splenomegaly, tenderness, no umbilical hernia, no ventral hernia - Integumentary Integumentary: no calor, cellulitis, no cyanotic, no decreased turgor, no flushed, no jaundiced, no normal, no normal turgor, pale, rash, no ulcer - Neurologic Neurologic: CNII-XII intact - Musculoskeletal Musculoskeletal: gait normal, generalized weakness, strength equal bilaterally - Psychiatric Psychiatric: A&O x's 3, no appropriate affect, no intact judgment & insight - Labs CBC & Chem 7: 12/29/16 09:04 12/29/16 09:04 Labs: Abnormal Lab Results - Last 24 Hours (Table) 12/29/16 12/29/16 Range/Units 09:04 09:04 RBC 2.24 L (3.80-5.40) m/uL Hgb 7.0 L* (11.4-16.0) gm/dL Hct 20.6 L (34.0-46.0) % RDW 18.4 H (11.5-15.5) % Plt Count 134 L (150-450) k/uL Potassium 3.1 L (3.5-5.1) mmol/L Chloride 113 H (98-107) mmol/L Carbon Dioxide 21 L (22-30) mmol/L BUN 6 L (7-17) mg/dL Creatinine 0.51 L (0.52-1.04) mg/dL Glucose 68 L (74-99) mg/dL Calcium 7.4 L (8.4-10.2) mg/dL Assessment and Plan Plan: 1 metabolic encephalopathy secondary to infection, anemia, lower back pain, side effect medication along with UTI. Treat underlying disease. MRI as above. 2 sepsis with VRE UTI: With patient's current condition patient will be on IV antibiotics continue hydration watch symptoms closely repeat UA and wait for culture, with the any unusual infections specially with the resistant bacteria in the past will have patient seen infectious disease. 3 acute kidney injury most likely ATN with chronic kidney disease: Continue hydration repeat BUN/creatinine daily for the next few days. 4 recurrent abdominal pain with no significant abnormalities on CAT scan. 5 right-sided hip pain with no clear evidence of trauma recently with x-ray showing osteoarthrosis 6 recurrent anemia with blood transfusion different occasion last few weeks hemoglobin has been stable at this point continue to watch for any further recurrent bleed. transfuse 1 unit of packed RBCs. 7 chronic edema: Has been on diuretics doing well. 8 A. fib with RVR with history of paroxysmal atrial fibrillation: Patient has been on Eliquis 5 mg twice a day along with metoprolol 100 mg daily and amiodarone 200 mg a day pulse rates under control currently. 9 hyperlipidemia: Has been on Lipitor. 10 lower back pain with worsening symptom will continue patient on smaller dose of hydrocodone or tramadol along with mild muscle relaxer. 11 recent history of hemicolectomy with complication: Patient still been watch by surgery. No obstruction this time. 12. metabolic acidosis. 13.dysphagia with lack of appetite and dysgeusia. Esophagram normal. Dr. Guzman no need for intervention. Possibly due to constipation. Dulcolax suppository ordered. psychiatry consult, oncology consult for rule out paraneoplastic syndrome, cardiology consult rule out amiodarone as possible cause. EGD scheduled for with Dr. Gonzalez. CODE STATUS: Full code. Discharge plan: Return to [facility] Impression and plan of care have been directed as dictated by the signing physician. Mayi Lindsay nurse practitioner acting as scribe for signing physician. Time with Patient: Greater than 30
[2016-12-29] MEDS: PANTOPRAZOLE 40 MG TABLET PO SCH (12:23)
[2016-12-29] MEDS: ALPRAZolam 0.25 MG TAB PO SCH ×2 (12:23→20:39)
[2016-12-29] MEDS: CYANOCOBALAMIN 500 MCG TAB PO SCH (12:24)
[2016-12-29] MEDS: SENNOSIDES-DOCUSATE SODIUM 1 EACH TAB PO SCH ×2 (12:24→21:28)
[2016-12-29] MEDS: METOPROLOL SUCCINATE (ER) 50 MG TAB.ER.24H PO SCH (12:27)
[2016-12-29] MEDS: FERROUS SULFATE 325 MG TAB PO SCH (12:27)
[2016-12-29] MEDS: AMIODARONE 100 MG TAB PO SCH (12:27)
[2016-12-29] MEDS: POTASSIUM CHLORIDE 10 MEQ, LIDOCAINE 2% INJ 10 MG in SODIUM CHLORIDE 0.9% 100 ML IVPB SCH ×3 (12:27→15:41)
[2016-12-29] MEDS: DEXTROSE 5%-0.45% NACL 1,000 ML IV SCH (12:28)
[2016-12-29 12:36] LABS: Glucose,Whole Blood 93 mg/dL (75-99)
[2016-12-29] MEDS ORDERED: IV FLUID CONTINUATION 1,000 ML IV ONE (13:31)
[2016-12-29 13:41] LABS: Magnesium 1.6 mg/dL (1.6-2.3); Phosphorous 2.9 mg/dL (2.5-4.5)
[2016-12-29] MEDS ORDERED: LIDOCAINE 2% INJ 20 MG/ML SQ ONE (13:51)
[2016-12-29] MEDS: ONDANSETRON 4 MG/2 ML VIAL IVP PRN (14:43)
--- NOTE | 2016-12-29 16:37 | P.GSCN ---
History of Present Illness Consult date: 12/29/16 History of present illness: Patient is a 76-year-old white female who presented to the emergency room with mental status changes, dehydration, elevated the gland, stage III chronic kidney disease, and a UTI. She was started on IV antibiotics. The patient denies abdominal pain at this time. The patient's medical history is significant for the fact that she was treated at [facility] for ischemic bowel several months ago. She had a bowel resection and following the bowel resection required several transfusions secondary to anemia. The cause of the ischemia has not been determined. The patient since then has had persistent nausea and vomiting with significant weight loss. The patient recently had an ultrasound of the gallbladder performed which did not reveal gallstones. She had a HIDA scan performed which revealed an ejection fraction of 20%. Patient's AST and ALP total bilirubin and alkaline phosphatase from 17 well within normal limits. Patient's lipase on 12/26/2016 was within normal limits. Patient is had a CA-15-3 which was within normal limits and a CA -27-29 which was within normal limits. Because of the patient's nausea is uncertain. Review of Systems - Constitutional Constitutional Comment(s): Anorexia, chronic pain, fatigue, lethargy, Reports as per HPI - EENT Ears, nose, mouth and throat: Reports ant. neck pain - Breasts Breasts Comment(s): Bilateral mastectomies - Cardiovascular Cardiovascular Comment(s): Patient reports chest pain, dyspnea on exertion, edema, hypertension, orthopnea , rapid heartbeat, - Respiratory Reports congestion, Reports cough - Gastrointestinal Reports as per HPI, Reports abdominal pain - Genitourinary Genitourinary Comment(s): Stress incontinence - Musculoskeletal Musculoskeleta Comment(s): Ataxia - Integumentary Integumentary Comment(s): Thin skin and bruising over the upper extremities and chest - Neurological Reports ataxia - Psychiatric Reports anhedonia, Reports anxiety, Reports depression - Hematologic/Lymphatic Reports easy bruising Past Medical History Past Medical History: Cancer, GERD/Reflux, Hyperlipidemia, Hypertension Additional Past Medical History / Comment(s): Breast CA status post bilateral mastectomy and implant placement September 2016, ischemic bowel status post exploratory laparotomy History of Any Multi-Drug Resistant Organisms: Other MDRO Past Surgical History: Breast Surgery, Orthopedic Surgery Additional Past Surgical History / Comment(s): LEFT SHOULDER. LEFT FOOT. Bilateral mastectomy in september of 2016, ex-lap with SBR for ischmemic bowl on 09/29/16 Past Anesthesia/Blood Transfusion Reactions: Motion Sickness, Postoperative Nausea & Vomiting (PONV) Additional Past Anesthesia/Blood Transfusion Reaction / Comm: PATIENT STATES HER TEETH IMPLANTS WERE DISLODGED DURING INTUBATION AND SHE SWALLOWED A TOOTH. Past Psychological History: No Psychological Hx Reported Smoking Status: Former smoker Past Alcohol Use History: None Reported Additional Past Alcohol Use History / Comment(s): Quit in 1984, smoked less than 1/2 PPD for 25 yrs. Past Drug Use History: None Reported - Past Family History Mother Family Medical History: No Reported History Medications and Allergies Home Medications Medication Instructions Recorded Confirmed Type Atorvastatin [Lipitor] 10 mg PO HS@209907/31/16 12/14/16 History Metoprolol Succinate [Toprol XL] 100 mg PO DAILY@209907/31/16 12/14/16 History Omeprazole 20 mg PO DAILY 07/31/16 12/14/16 History Amiodarone [Cordarone] 200 mg PO DAILY 11/24/16 12/14/16 History Apixaban [Eliquis] 5 mg PO BID 11/24/16 12/14/16 History Ferrous Sulfate [Feosol] 325 mg PO DAILY 11/24/16 12/14/16 History Sennosides-Docusate Sodium 1 tab PO BID 11/24/16 12/14/16 History [Senokot-S] Acetaminophen Tab [Tylenol Tab] 650 mg PO Q4H PRN 12/14/16 12/14/16 History Cholecalciferol [Vitamin D3] 2,000 unit PO HS 12/14/16 12/14/16 History Cyanocobalamin [Vitamin B-12] 500 mcg PO DAILY 12/14/16 12/14/16 History Darbepoetin Matty [Aranesp] 40 mcg SQ Q30D 12/14/16 12/15/16 History Dronabinol [Marinol] 5 mg PO BID 12/14/16 12/14/16 History Furosemide [Lasix] 40 mg PO MOWEFR 12/14/16 12/14/16 History Lactose-Reduced Food [Ensure Plus] 1 can PO TID BETWEEN MEALS 12/14/16 12/14/16 History Melatonin 6 mg PO HS 12/14/16 12/14/16 History Potassium Chloride [Klor-Con] 20 meq PO DAILY 12/14/16 12/14/16 History Allergies Allergy/AdvReac Type Severity Reaction Status Date / Time No Known Allergies Allergy Verified 12/14/16 23:06 Surgical - Exam Vital Signs Pulse Resp BP Pulse Ox 62 18 114/51 100 12/14/16 20:31 12/14/16 20:31 12/14/16 20:31 12/14/16 20:31 - General moderate distress, cachectic - Eyes normal ocular movement - ENT normal pinna, normal nares, no hearing loss - Neck no masses, trachea midline, no venous distension - Respiratory normal expansion, normal respiratory effort, clear to auscultation - Cardiovascular Rhythm: regular Heart Sounds: normal: S1, S2 - Abdomen Abdominal midline incision well-healed No guarding or rebound Abdomen: soft, bowel sounds - Integumentary Bilateral mastectomies well-healed scars Results - Labs 12/29/16 09:04 12/29/16 09:04 Abnormal Lab Results - Last 24 Hours (Table) 12/29/16 12/29/16 12/29/16 Range/Units 09:04 09:04 11:54 RBC 2.24 L (3.80-5.40) m/uL Hgb 7.0 L* (11.4-16.0) gm/dL Hct 20.6 L (34.0-46.0) % RDW 18.4 H (11.5-15.5) % Plt Count 134 L (150-450) k/uL Potassium 3.1 L (3.5-5.1) mmol/L Chloride 113 H (98-107) mmol/L Carbon Dioxide 21 L (22-30) mmol/L BUN 6 L (7-17) mg/dL Creatinine 0.51 L (0.52-1.04) mg/dL Glucose 68 L (74-99) mg/dL Calcium 7.4 L (8.4-10.2) mg/dL Crossmatch See Detail Diabetes panel 12/29/16 Range/Units 09:04 Sodium 143 (137-145) mmol/L Potassium 3.1 L (3.5-5.1) mmol/L Chloride 113 H (98-107) mmol/L Carbon Dioxide 21 L (22-30) mmol/L BUN 6 L (7-17) mg/dL Creatinine 0.51 L (0.52-1.04) mg/dL Glucose 68 L (74-99) mg/dL Calcium 7.4 L (8.4-10.2) mg/dL Calcium panel 12/29/16 12/29/16 Range/Units 09:04 09:04 Calcium 7.4 L (8.4-10.2) mg/dL Phosphorus 2.9 (2.5-4.5) mg/dL Pituitary panel 12/29/16 Range/Units 09:04 Sodium 143 (137-145) mmol/L Potassium 3.1 L (3.5-5.1) mmol/L Chloride 113 H (98-107) mmol/L Carbon Dioxide 21 L (22-30) mmol/L BUN 6 L (7-17) mg/dL Creatinine 0.51 L (0.52-1.04) mg/dL Glucose 68 L (74-99) mg/dL Calcium 7.4 L (8.4-10.2) mg/dL Adrenal panel 12/29/16 Range/Units 09:04 Sodium 143 (137-145) mmol/L Potassium 3.1 L (3.5-5.1) mmol/L Chloride 113 H (98-107) mmol/L Carbon Dioxide 21 L (22-30) mmol/L BUN 6 L (7-17) mg/dL Creatinine 0.51 L (0.52-1.04) mg/dL Glucose 68 L (74-99) mg/dL Calcium 7.4 L (8.4-10.2) mg/dL Assessment and Plan Plan: Impression/plan: 1. Anemia of uncertain etiology 2. Nausea and vomiting 3. Biliary dyskinesia 4. Recent onset of ischemic bowel status post bowel resection 5. Elevated BUN/creatinine/kidney disease 6. Anxiety depression 7. Urinary tract infection treated 8. Ecchymosis of the upper extremities 9. Bilateral mastectomies Plan: 1. Etiology of nausea and vomiting uncertain, I'm not convinced this is related to biliary dyskinesia and at this time would not recommend surgical intervention. 2. Continue medical treatment 3. We'll obtain operative reports from [facility] 4. We'll follow with you
[2016-12-29 17:12] LABS: Glucose,Whole Blood 104 mg/dL (75-99)
--- NOTE | 2016-12-29 18:28 | P.PN ---
Subjective Patient now presents from [facility] to [facility] emergency center by EMS for dehydration and elevated creatinine. CAT scan of the brain showed cerebral atrophy with right-sided maxillary and ethmoid sinusitis and no change compared to prior. Chest x-ray shows no acute cardiopulmonary disease. On recent blood draw her BUN was 35 and creatinine 3.10 and repeat here is 39 and 3.50. Patient is complaining of pain all over especially in the back and the hips right more so than left. Apparently she has had falls at [facility]. Blood pressure was low with a heart rate of 47. Apparently patient has not been eating and drinking and had worsening confusion. Patient does complain of nausea without vomiting and complains of dizziness with movement. White count 6.7, hemoglobin 9.7. BUN 39 and creatinine 3.5. Urinalysis was turbid, blood trace, leukoesterase large, WBC 75, WBC clumps many, bacteria many. Urine drug screen was positive for marijuana and patient is on Marinol. Patient was started on Levaquin and admitted to the [facility] floor. Antibiotic was subsequently changed to Zyvox as her last urine culture done on November 24 was enterococcus gallinarum, multidrug resistant. Right hip x-ray was done that showed osteoarthrosis with no acute abnormality. CAT scan of the abdomen and pelvis without contrast has been done and report is pending. Patient has been seen by Dr. Penaloza for non-oliguric acute kidney injury. the nausea and retching are further improved. Still not eating. Patient's family is concerned. Relates that the mother's been ill since September with similar symptoms. Upper GI without obstruction with a history of stricture. EKG has been performed. There is abnormality into the stomach and biopsies have been obtained. Objective - Vital Signs Vital signs: Vital Signs Temp 98.5 F 12/29/16 17:38 Pulse 73 12/29/16 17:38 Resp 18 12/29/16 17:38 BP 142/65 12/29/16 17:38 Pulse Ox 95 12/29/16 07:00 Intake & Output 12/28/16 12/29/16 12/29/16 18:59 06:59 18:59 Intake Total 100 60 310 Output Total 1150 1625 Balance -1050 -1565 310 Weight 78 kg 79 kg Intake: IV 100 Oral 60 Blood Product 310 Rc Pheresis As-3 Unit 310 [id number] Output: Urine 1150 1625 Other: Voiding Method Indwelling Catheter Indwelling Catheter Indwelling Catheter # Voids 2 # Bowel Movements 0 0 - Exam en: This is a 76-year-old female. HEENT: Head is atraumatic, normocephalic. Pupils equal, round. Sclerae is anicteric. NECK: Supple. No JVD. No lymphadenopathy. No thyromegaly. LUNGS: Clear to auscultation. No wheezes or rhonchi. No intercostal retractions. HEART: Regular rate and rhythm. No murmur. ABDOMEN: Soft. Bowel sounds are present. No masses. Generalized tenderness. EXTREMITIES: Positive bilateral pedal edema. No calf tenderness. NEUROLOGICAL: Patient is awake, alert and oriented x1 - Labs CBC & Chem 7: 12/29/16 09:04 12/29/16 09:04 Labs: Abnormal Lab Results - Last 24 Hours (Table) 12/29/16 12/29/16 12/29/16 Range/Units 09:04 09:04 11:54 RBC 2.24 L (3.80-5.40) m/uL Hgb 7.0 L* (11.4-16.0) gm/dL Hct 20.6 L (34.0-46.0) % RDW 18.4 H (11.5-15.5) % Plt Count 134 L (150-450) k/uL Potassium 3.1 L (3.5-5.1) mmol/L Chloride 113 H (98-107) mmol/L Carbon Dioxide 21 L (22-30) mmol/L BUN 6 L (7-17) mg/dL Creatinine 0.51 L (0.52-1.04) mg/dL Glucose 68 L (74-99) mg/dL POC Glucose (mg/dL) (75-99) mg/dL Calcium 7.4 L (8.4-10.2) mg/dL Crossmatch See Detail 12/29/16 Range/Units 17:11 RBC (3.80-5.40) m/uL Hgb (11.4-16.0) gm/dL Hct (34.0-46.0) % RDW (11.5-15.5) % Plt Count (150-450) k/uL Potassium (3.5-5.1) mmol/L Chloride (98-107) mmol/L Carbon Dioxide (22-30) mmol/L BUN (7-17) mg/dL Creatinine (0.52-1.04) mg/dL Glucose (74-99) mg/dL POC Glucose (mg/dL) 104 H (75-99) mg/dL Calcium (8.4-10.2) mg/dL Crossmatch Laboratory Results WBC 5.1 k/uL (3.8-10.6) 12/29/16 09:04 RBC 2.24 m/uL (3.80-5.40) L 12/29/16 09:04 Hgb 7.0 gm/dL (11.4-16.0) L* 12/29/16 09:04 Hct 20.6 % (34.0-46.0) L 12/29/16 09:04 MCV 92.0 fL (80.0-100.0) 12/29/16 09:04 MCH 31.2 pg (25.0-35.0) 12/29/16 09:04 MCHC 34.0 g/dL (31.0-37.0) 12/29/16 09:04 RDW 18.4 % (11.5-15.5) H 12/29/16 09:04 Plt Count 134 k/uL (150-450) L 12/29/16 09:04 Neutrophils % 65 % 12/14/16 20:54 Lymphocytes % 28 % 12/14/16 20:54 Monocytes % 5 % 12/14/16 20:54 Eosinophils % 1 % 12/14/16 20:54 Basophils % 0 % 12/14/16 20:54 Neutrophils # 4.3 k/uL (1.3-7.7) 12/14/16 20:54 Lymphocytes # 1.9 k/uL (1.0-4.8) 12/14/16 20:54 Monocytes # 0.4 k/uL (0-1.0) 12/14/16 20:54 Eosinophils # 0.1 k/uL (0-0.7) 12/14/16 20:54 Basophils # 0.0 k/uL (0-0.2) 12/14/16 20:54 Hypochromasia Slight 12/19/16 07:50 Poikilocytosis Slight 12/29/16 09:04 Anisocytosis Slight 12/29/16 09:04 Macrocytosis Slight 12/19/16 07:50 PT 15.3 sec (9.0-12.0) H 12/14/16 20:54 INR 1.6 (<1.1) 12/14/16 20:54 APTT 28.0 sec (22.0-30.0) 12/14/16 20:54 Sodium 143 mmol/L (137-145) 12/29/16 09:04 Potassium 3.1 mmol/L (3.5-5.1) L 12/29/16 09:04 Chloride 113 mmol/L (98-107) H 12/29/16 09:04 Carbon Dioxide 21 mmol/L (22-30) L 12/29/16 09:04 Anion Gap 9 mmol/L 12/29/16 09:04 BUN 6 mg/dL (7-17) L 12/29/16 09:04 Creatinine 0.51 mg/dL (0.52-1.04) L 12/29/16 09:04 Est GFR (MDRD) Af Amer >60 (>60 ml/min/1.73 sqM) 12/29/16 09:04 Est GFR (MDRD) Non-Af >60 (>60 ml/min/1.73 sqM) 12/29/16 09:04 Glucose 68 mg/dL (74-99) L 12/29/16 09:04 POC Glucose (mg/dL) 104 mg/dL (75-99) H 12/29/16 17:11 POC Glu Van Loader ID 12/29/16 17:11 Plasma Lactic Acid Deion 1.9 mmol/L (0.7-2.0) 12/14/16 20:54 Calcium 7.4 mg/dL (8.4-10.2) L 12/29/16 09:04 Phosphorus 2.9 mg/dL (2.5-4.5) 12/29/16 09:04 Magnesium 1.6 mg/dL (1.6-2.3) 12/29/16 09:04 Iron 33 ug/dL (37-170) L 12/14/16 20:54 TIBC 155 ug/dL (265-497) L 12/14/16 20:54 % Saturation 21.3 % (20-50) 12/14/16 20:54 Ferritin 298 ng/mL (11-264) H 12/14/16 20:54 Total Bilirubin 1.1 mg/dL (0.2-1.3) 12/14/16 20:54 AST 30 U/L (14-36) 12/14/16 20:54 ALT 42 U/L (9-52) 12/14/16 20:54 Alkaline Phosphatase 82 U/L (38-126) 12/14/16 20:54 Total Creatine Kinase 76 U/L (30-135) 12/14/16 20:54 CK-MB (CK-2) 0.6 ng/mL (0.0-2.4) 12/14/16 20:54 CK-MB (CK-2) Rel Index 0.8 12/14/16 20:54 Troponin I 0.022 ng/mL (0.000-0.034) 12/14/16 20:54 Total Protein 5.8 g/dL (6.3-8.2) L 12/14/16 20:54 Albumin 2.7 g/dL (3.5-5.0) L 12/14/16 20:54 Lipase 70 U/L (23-300) 12/26/16 07:52 CA 15-3 Antigen 20.1 U/mL (<35.1) 12/26/16 07:52 CA 27-29 25.8 U/mL (0.0-38.5) 12/25/16 08:36 TSH 0.936 mIU/L (0.465-4.680) 12/26/16 07:52 Urine Color Yellow 12/14/16 20:52 Urine Appearance Turbid (Clear) H 12/14/16 20:52 Urine pH 5.0 (5.0-8.0) 12/14/16 20:52 Ur Specific [place] 1.014 (1.001-1.035) 12/14/16 20:52 Urine Protein 1+ (Negative) H 12/14/16 20:52 Urine Glucose (UA) Negative (Negative) 12/14/16 20:52 Urine Ketones Negative (Negative) 12/14/16 20:52 Urine Blood Trace (Negative) H 12/14/16 20:52 Urine Nitrate Negative (Negative) 12/14/16 20:52 Urine Bilirubin 1+ (Negative) H 12/14/16 20:52 Urine Urobilinogen 2.0 mg/dL (<2.0) 12/14/16 20:52 Ur Leukocyte Esterase Large (Negative) H 12/14/16 20:52 Urine WBC 75 /hpf (0-5) H 12/14/16 20:52 Urine WBC Clumps Many /hpf (None) H 12/14/16 20:52 Ur Squamous Epith Cells 2 /hpf (0-4) 12/14/16 20:52 Urine Bacteria Many /hpf (None) H 12/14/16 20:52 Hyaline Casts 631 /lpf (0-2) H 12/14/16 20:52 Urine Opiates Screen Not Detected (NotDetected) 12/14/16 20:52 Ur Oxycodone Screen Not Detected (NotDetected) 12/14/16 20:52 Urine Methadone Screen Not Detected (NotDetected) 12/14/16 20:52 Ur Propoxyphene Screen Not Detected (NotDetected) 12/14/16 20:52 Ur Barbiturates Screen Not Detected (NotDetected) 12/14/16 20:52 U Tricyclic Antidepress Not Detected (NotDetected) 12/14/16 20:52 Ur Phencyclidine Scrn Not Detected (NotDetected) 12/14/16 20:52 Ur Amphetamines Screen Not Detected (NotDetected) 12/14/16 20:52 U Methamphetamines Scrn Not Detected (NotDetected) 12/14/16 20:52 U Benzodiazepines Scrn Not Detected (NotDetected) 12/14/16 20:52 Urine Cocaine Screen Not Detected (NotDetected) 12/14/16 20:52 U Marijuana (THC) Screen Detected (NotDetected) H 12/14/16 20:52 Blood Type O Negative 12/29/16 11:54 Blood Type Recheck No 12/29/16 11:54 Antibody Screen NEGATIVE 12/29/16 11:54 Crossmatch See Detail 12/29/16 11:54 Spec Expiration Date 01/01/2017 1106 12/29/16 11:54 Microbiology 12/14/16 21:06 Blood Blood Culture - Final No Growth after 144 hours 12/15/16 13:15 Urine,Catheterized Urine Culture - Final Assessment and Plan (1) Acute renal failure Narrative/Plan: 76-year-old woman with multiple medical troubles presents to Hospital acutely ill. Has acute renal failure showing some improvement. Urinary infection. Recent urine infection with vancomycin-resistant enterococci. Currently receiving Zyvox and being monitored. The significant somewhat better today with hydration and control of her nausea. Does have much less nausea and emesis today. She over still quite miserable. Receiving anxiolytics and some pain control. Laboratories being followed. Her nutritional supplementation when able. Patient's son was present. Relates that in September before the mother became ill. She was independent. Driving. Doing her own shopping preparing her own meals. Constantly they are quite concerned about her drastic overall decline. Has been seen by gastroenterology. Plan for EGD today to further evaluate for the refractory nausea and retching. Neurologic consult performed, work up negative so far. Marinol to be held Discontinue Zyvox negative urine cultures, no change since she's been off antibiotic therapy. There has been a mild improvement of her status since Marinol has been held. But still not doing well overall. We'll not need antibiotic therapy or discharge Will go to rehab once her nausea improved. The patient's been seen by cardiology and echocardiogram without vegetation. Also be seen by psychiatry for the possibility of a neurogenic etiology of her retching. EGD is performed. There appears to marked abnormality to the stomach and biopsies been obtained. Await the results. Status: Acute (2) Altered mental status Status: Acute (3) Urinary tract infection Status: Acute
[2016-12-29] MEDS ORDERED: Potassium Replacement Protocol 1 EACH MISC MISCELLANE PRN (19:41)
[2016-12-29] MEDS: MAGNESIUM SULFATE-D5W PMX 1 GM in DEXTROSE/WATER 1 100ML.BAG IVPB SCH ×2 (20:00→21:33)
[2016-12-29] MEDS: ATORVASTATIN 10 MG TAB PO SCH (21:27)
[2016-12-29] MEDS: MIRTAZAPINE 15 MG TAB PO SCH (21:28)
[2016-12-29] MEDS: CHOLECALCIFEROL 1,000 UNIT TAB PO SCH (21:28)
[2016-12-29 21:32] LABS: Glucose,Whole Blood 96 mg/dL (75-99)
[2016-12-29] MEDS: POTASSIUM CHLORIDE 10 MEQ, LIDOCAINE 2% INJ 10 MG in SODIUM CHLORIDE 0.9% 100 ML IV SCH ×2 (22:36→23:36)
[2016-12-30] MEDS: POTASSIUM CHLORIDE 10 MEQ, LIDOCAINE 2% INJ 10 MG in SODIUM CHLORIDE 0.9% 100 ML IV SCH (00:41)
[2016-12-30] MEDS: DEXTROSE 5%-0.45% NACL 1,000 ML IV SCH (05:41)
[2016-12-30 06:57] LABS: Glucose,Whole Blood 91 mg/dL (75-99)
[2016-12-30] MEDS: PANTOPRAZOLE 40 MG TABLET PO SCH (07:55)
[2016-12-30] MEDS: METOPROLOL SUCCINATE (ER) 50 MG TAB.ER.24H PO SCH (07:55)
[2016-12-30] MEDS: AMIODARONE 100 MG TAB PO SCH (07:55)
[2016-12-30] MEDS: ALPRAZolam 0.25 MG TAB PO SCH ×2 (07:55→21:08)
[2016-12-30] MEDS: SENNOSIDES-DOCUSATE SODIUM 1 EACH TAB PO SCH ×2 (08:02→21:11)
[2016-12-30 08:17] LABS: Anisocytosis Slight; CH 31.4; CHCM 34.2; HCT 21.4 % (34.0-46.0); HDW 3.93; HGB 7.3 gm/dL (11.4-16.0); MCH 31.8 pg (25.0-35.0); MCHC 34.3 g/dL (31.0-37.0); MCV 92.7 fL (80.0-100.0); Mean Platelet Volume 8.2; Poikilocytosis Slight; RBC 2.31 m/uL (3.80-5.40); RDW 18.6 % (11.5-15.5); WBC 3.7 k/uL (3.8-10.6)
[2016-12-30 08:34] LABS: Anion Gap 7 mmol/L; Blood Urea Nitrogen 5 mg/dL (7-17); Calcium 7.1 mg/dL (8.4-10.2); Carbon Dioxide 22 mmol/L (22-30); Chloride 112 mmol/L (98-107); Glucose 85 mg/dL (74-99); Non-African American GFR(MDRD) >60 (>60 ml/min/1.73 sqM); Sodium 141 mmol/L (137-145)
[2016-12-30 08:38] LABS: Potassium 2.3 mmol/L (3.5-5.1)
[2016-12-30] MEDS: POTASSIUM CHLORIDE 10 MEQ in WATER FOR INJECTION 1 100ML.BAG IVPB SCH ×8 (09:25→23:33)
[2016-12-30] MEDS ORDERED: 0.9% NACL WITH KCL 20 MEQ/L 1,000 ML IV SCH (10:00)
--- NOTE | 2016-12-30 11:17 | P.PN ---
Arlette Shelton is a 76-year-old female followed up with acute kidney injury which has resolved but continues to have significant hypokalemia which is thought to be from decreased intake but the degree of hypokalemia severe with potassium 2.1 today. She is confused and sleepy. She refuses examination and is very uncooperative. History therefore is unreliable. I spoke to the nursing staff. She is eating about 20% of her ensure at most with each meal. She is card up in bed and does not want to get out. No history of diarrhea and nausea vomiting. She is not complaining of any pain. 24-hour intake is 160 mL she is on IV normal saline 75 an hour with 20 mEq of potassium. Therefore the total intake is inaccurate. She had output is 2775. Objective - Vital Signs Vital signs: Vital Signs Temp 98.8 F 12/30/16 07:00 Pulse 80 12/30/16 07:00 Resp 16 12/30/16 07:00 BP 139/62 12/30/16 07:00 Pulse Ox 97 12/30/16 07:00 Intake & Output 12/29/16 12/30/16 12/30/16 18:59 06:59 18:59 Intake Total 310 200 Output Total 1300 400 Balance -990 -200 Weight 97.5 kg Intake: Oral 200 Blood Product 310 Rc Pheresis As-3 Unit 310 [id number] Output: Urine 1300 400 Uretheral ([place]) 200 Other: Voiding Method Indwelling Catheter Indwelling Catheter Indwelling Catheter # Bowel Movements 0 On examination she is obese female very uncooperative and confused Neck is supple no facial asymmetry no JVP is noted Lungs are clear to auscultation percussion good air entry bilaterally Heart sounds are unremarkable but rather difficult exam as she was resisting. Abdomen is soft nontender obese Extremity exam was no edema Neurologically she is moving all her extremities but very uncooperative - Labs CBC & Chem 7: 12/30/16 07:43 12/30/16 07:43 Labs: Abnormal Lab Results - Last 24 Hours (Table) 12/29/16 12/29/16 12/29/16 Range/Units 11:54 17:11 18:35 WBC (3.8-10.6) k/uL RBC (3.80-5.40) m/uL Hgb (11.4-16.0) gm/dL Hct (34.0-46.0) % RDW (11.5-15.5) % Plt Count (150-450) k/uL Potassium 2.6 L* (3.5-5.1) mmol/L Chloride (98-107) mmol/L BUN (7-17) mg/dL POC Glucose (mg/dL) 104 H (75-99) mg/dL Calcium (8.4-10.2) mg/dL Crossmatch See Detail 12/30/16 12/30/16 Range/Units 07:43 07:43 WBC 3.7 L (3.8-10.6) k/uL RBC 2.31 L (3.80-5.40) m/uL Hgb 7.3 L (11.4-16.0) gm/dL Hct 21.4 L (34.0-46.0) % RDW 18.6 H (11.5-15.5) % Plt Count 129 L (150-450) k/uL Potassium 2.3 L* (3.5-5.1) mmol/L Chloride 112 H (98-107) mmol/L BUN 5 L (7-17) mg/dL POC Glucose (mg/dL) (75-99) mg/dL Calcium 7.1 L (8.4-10.2) mg/dL Crossmatch Assessment and Plan Plan: Impression. 1 hypokalemia not very well explain possibly low intake. Magnesium replete. Rule out magnesium wasting by the kidneys. She has 1+ proteinuria on her UA 2. Acute kidney injury resolved. 3. Confusion and not very apparent cause. 4. Recent history of bowel ischemia and was admitted [facility]. Status post bowel resection, with poor appetite Recommendation. 1. Total potassium 130 mg to be given today. This will consist of 80 mg orally and IV 30 mEq as boluses of 10 H and a further 20 mg via IV normal saline at 75 mL an hour. 2. Redo magnesium level. 3. Check urine potassium sodium and osmolality to rule out urinary wastage and then if it is positive will need an explanation. 4. Monitor potassium
[2016-12-30 11:49] LABS: Glucose,Whole Blood 72 mg/dL (75-99)
[2016-12-30] MEDS: CYANOCOBALAMIN 500 MCG TAB PO SCH (11:57)
[2016-12-30] MEDS: FERROUS SULFATE 325 MG TAB PO SCH (11:57)
[2016-12-30] MEDS ORDERED: POTASSIUM CHLORIDE ER 20 MEQ TAB.ER PO SCH (12:00)
--- NOTE | 2016-12-30 12:04 | P.PN ---
Subjective 76-year-old female was hospitalized in to to 11/25/2016 for acute blood loss anemia with hemoglobin of 5.0 with intractable nausea with no vomiting she had recent hemicolectomy at [facility] she was hospitalized had blood transfusion her hemoglobin was stabilized and ended up going back to [facility] [place] the [place] which she seen Dr. Quintanilla a regular basis. 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 She had 2 different occasions in October when she presented to [facility] complaining of nausea and vomiting along with no bowel movement for several day she ended up going for EGD on November 27 was negative and colonoscopy was scheduled as an outpatient hemoglobin was pain above 7 did not require any further transfusion and did well going back to [facility] [place] her anticoagulation was resumed was doing better with it. [facility] in 12/14/2016 with change mental status worsening confusion dehydration significantly elevated creatinine BUN with stage III chronic kidney disease along with acute kidney injury possible ATN. Patient found to have UTI as well was started on IV antibiotics with Levaquin hydration and admitted to the hospital. Surprisingly continue complain of worsening abdominal pain along with worsening lower back pain and right sided hip pain with no recent injury. 12/16: Patient is continued on IV fluids at 100 mL per hour. Repeat BUN is 24 1.77. Patient's nausea is better but continues and scopolamine patch ordered. Patient has had very little urine output and Jewell catheter has been ordered. 12/17: Patient status appears to be much improved but she does continue to have concerns about nausea. Consult is in place with GI. Nephrology is following for acute kidney injury and continued on IV fluids at 100 mL per hour. She is continued on Zyvox for VRE urinary tract infection. Anticipate discharge back to [facility] on Sunday or Sunday. 12/18: Patient has been seen by Dr. Gonzalez with possibility of central etiology for her nausea especially with her positional symptoms and visual field issues. Dr. Negro has cleared for discharge. Repeat BUN 13 and creatinine 1.07. patient's daughter is concerned about her change in overall health and mental status since September when all her illnesses started. Patient appears to be somewhat paranoid today. Marinol decreased to 2.5 mg twice daily. 12/19: Patient has been seen by neurology. MRI showed mild diffuse age-related cerebral atrophy and moderate chronic small vessel ischemic change. Persistent right-sided paranasal sinus disease possibly acute sinusitis. Electrolytes are improved from yesterday. Attempted to determine when Marinol was started. It appears that was started at [facility] on her last hospitalization in November. Patient is able to state the city, month and year. 12/20: patient's mental status is slightly improved today. She is complaining of feeling that things are getting stuck in her esophagus. She was evaluated by speech therapy. GI has signed off but spoke with Dr. Guzman and she will reevaluate. Esophagram was ordered. IV fluids changed to saline lock and Lasix 1 ordered. 12/21: Patient has been seen by Dr. Julien Guzman. Esophagram was negative with no plan for any intervention at this time. Plan to encourage oral intake, dietitian consult for protein supplement BUN 10 and creatinine 0.96. Nephrology is following. Hemoglobin is stable at 8.8. Anticipate discharge back to [facility] tomorrow. 12/22: patient continues to have gangrenous in his food is put in her mouth. She states she has not had a bowel movement for greater than 1 week. Dulcolax suppository added. Marinol decreased to 2.5 mg daily. 12/25: Over the weekend, family was requesting information about PEG tube placement deferred to GI service as patient continued to have retching and unable to take in food. Patient refused PEG. Patient complains that she can not taste normal. Consult with Dr. Garcia if amiodarone could be causing/contribution to dysgeusia. Zyvox has been discontinued by Dr. Martinez. 12/26: patient continues to have significant retching. Hemoglobin is at 7.3. Consults added for psychiatry for psychiatric reasons for retching as well as patient has stated to her nurse to tell her family to let her . Consult added with Dr. Rondon to rule out paraneoplastic syndrome. Ultrasound of the abdomen right upper quadrant ordered. 12/27: Right upper quadrant ultrasound was negative. Patient has been seen by Dr. Lopez. Echocardiogram is pending. TSH. He does not feel swallowing difficulty is due to amiodarone. H. pylori ordered. Dr. Gonzalez he is scheduled patient for EGD on December 28. This is on hold. HIDA scan has been ordered. Patient is more confused today. 12/28: Patient has been seen by oncology with plan for tumor markers. [place] 2729 is normal at 25.8 and CA 153 is 20.1 within normal limits. She has been seen by psychiatry the patient was unable to participate. CAT scan of the chest was negative for pulmonary embolism. There are pleural effusions and cardiomegaly could be related to congestive heart failure. Pleural fluid is new compared to recent CAT scan on 12/15/2016. Any cardiology, echo reports have been requested from [facility]. 12/29:patient underwent HIDA scan that showed 20% EF. potassium of 3.1 will be replaced IV, hemoglobin 7.0 for which one unit of packed RBCs ordered. Patient has no IV access for this and PICC line has been ordered. 12/30: Patient is very drowsy, opens her eyes in response to verbal, however she is not participating or eating much. Objective - Vital Signs Vital signs: Vital Signs Temp 98.8 F 12/30/16 07:00 Pulse 80 12/30/16 07:00 Resp 16 12/30/16 07:00 BP 139/62 12/30/16 07:00 Pulse Ox 97 12/30/16 07:00 Intake & Output 12/29/16 12/30/16 12/30/16 18:59 06:59 18:59 Intake Total 310 200 Output Total 1300 400 Balance -990 -200 Weight 97.5 kg Intake: Oral 200 Blood Product 310 Rc Pheresis As-3 Unit 310 [id number] Output: Urine 1300 400 Uretheral (Jewell) 200 Other: Voiding Method Indwelling Catheter Indwelling Catheter # Bowel Movements 0 - Exam - Exam General appearance: no average body habitus, cooperative, no disheveled, mild distress, no morbidly obese, no no acute distress, no obese, no severe distress , thin - EENT Eyes: no abnormal pupil, no anicteric sclerae, no disc margins sharp, no edentulous, no EOMI, no PERRLA, no fundus normal, no photophobia, no dentition normal, no poor dentition, no ptosis, no scleral icterus, normal appearance ENT: no hard of hearing, no hearing grossly normal, no NA/AT, normal oropharynx , no other, no pharyngeal erythema, no thrush, no tonsillar exudates, no tonsillar swelling Ears: bilateral: normal, bulging - Neck Neck: no lymphadenopathy, normal ROM, no other, no rigidity, no stridor, no thyromegaly Carotids: bilateral: upstroke normal, upstroke delayed Thyroid: bilateral: normal size - Respiratory Respiratory: bilateral: diminished, dullness, rales, rhonchi, wheezing - Cardiovascular Rhythm: regular Heart sounds: normal: S1, S2 Abnormal Heart Sounds: systolic murmur, S3 Gallop - Gastrointestinal Scar tissue from recent surgery and the midline with no sign of infection but had large keloid and area of old hematoma on it. General gastrointestinal: no absent bowel sounds, decreased bowel sounds, distended, no hepatomegaly, no hyperactive bowel sounds, normal bowel sounds, no organomegaly, no rigid, scaphoid, soft, no splenomegaly, tenderness, no umbilical hernia, no ventral hernia - Integumentary Integumentary: no calor, cellulitis, no cyanotic, no decreased turgor, no flushed, no jaundiced, no normal, no normal turgor, pale, rash, no ulcer - Neurologic Neurologic: CNII-XII intact - Musculoskeletal Musculoskeletal: gait normal, generalized weakness, strength equal bilaterally - Psychiatric Psychiatric: Very stuporous opens her eyes response of normal saline however she is not eating much and not following much commands. - Labs CBC & Chem 7: 12/30/16 07:43 12/30/16 07:43 Labs: Abnormal Lab Results - Last 24 Hours (Table) 12/29/16 12/29/16 12/29/16 Range/Units 09:04 09:04 11:54 RBC 2.24 L (3.80-5.40) m/uL Hgb 7.0 L* (11.4-16.0) gm/dL Hct 20.6 L (34.0-46.0) % RDW 18.4 H (11.5-15.5) % Plt Count 134 L (150-450) k/uL Potassium 3.1 L (3.5-5.1) mmol/L Chloride 113 H (98-107) mmol/L Carbon Dioxide 21 L (22-30) mmol/L BUN 6 L (7-17) mg/dL Creatinine 0.51 L (0.52-1.04) mg/dL Glucose 68 L (74-99) mg/dL POC Glucose (mg/dL) (75-99) mg/dL Calcium 7.4 L (8.4-10.2) mg/dL Crossmatch See Detail 12/29/16 12/29/16 Range/Units 17:11 18:35 RBC (3.80-5.40) m/uL Hgb (11.4-16.0) gm/dL Hct (34.0-46.0) % RDW (11.5-15.5) % Plt Count (150-450) k/uL Potassium 2.6 L* (3.5-5.1) mmol/L Chloride (98-107) mmol/L Carbon Dioxide (22-30) mmol/L BUN (7-17) mg/dL Creatinine (0.52-1.04) mg/dL Glucose (74-99) mg/dL POC Glucose (mg/dL) 104 H (75-99) mg/dL Calcium (8.4-10.2) mg/dL Crossmatch Assessment and Plan Plan: Assessment and Plan Plan: 1 metabolic encephalopathy secondary to infection, anemia, lower back pain, side effect medication along with UTI. Treat underlying disease. MRI as above. 2 sepsis with VRE UTI: With patient's current condition patient will be on IV antibiotics continue hydration watch symptoms closely repeat UA and wait for culture, with the any unusual infections specially with the resistant bacteria in the past will have patient seen infectious disease. 3 acute kidney injury most likely ATN with chronic kidney disease: Continue hydration repeat BUN/creatinine daily for the next few days. 4 recurrent abdominal pain with no significant abnormalities on CAT scan. 5 right-sided hip pain with no clear evidence of trauma recently with x-ray showing osteoarthrosis 6 recurrent anemia with blood transfusion different occasion last few weeks hemoglobin has been stable at this point continue to watch for any further recurrent bleed. transfuse 1 unit of packed RBCs. 7 chronic edema: Has been on diuretics doing well. 8 A. fib with RVR with history of paroxysmal atrial fibrillation: Patient has been on Eliquis 5 mg twice a day along with metoprolol 100 mg daily and amiodarone 200 mg a day pulse rates under control currently. 9 hyperlipidemia: Has been on Lipitor. 10 lower back pain with worsening symptom will continue patient on smaller dose of hydrocodone or tramadol along with mild muscle relaxer. 11 recent history of hemicolectomy with complication: Patient still been watch by surgery. No obstruction this time. 12. metabolic acidosis. 13.dysphagia with lack of appetite and dysgeusia. Esophagram normal. Dr. Guzman no need for intervention. Possibly due to constipation. Dulcolax suppository ordered. psychiatry consult, oncology consult for rule out paraneoplastic syndrome, cardiology consult rule out amiodarone as possible cause, patient underwent EGD and that showed hiatal hernia with doubt any significant changes. Biopsy were obtained still pending at time of dictation. 14. Severe hypokalemia. Change her IV fluid to D5 half-normal saline with 20 KCl, continue with IV potassium and oral potassium replacement as ordered by nephrology. Monitor potassium very closely, monitor magnesium level tomorrow morning. 15. Her prognosis is very guarded. 16. Patient is Full code.
--- NOTE | 2016-12-30 12:38 | P.PN ---
Subjective Patient is a 76-year-old white female who is status post bowel resection for ischemic bowel at [facility] several months ago. She presently resides at a nursing facility. Presented to the hospital secondary to mental status changes and confusion. She is noted to have stage III chronic kidney disease. She was noted on a HIDA scan to have a low biliary ejection fraction. On physical examination her abdomen is soft with no guarding or rebound. Her liver function studies are within normal limits. Objective - Vital Signs Vital signs: Vital Signs Temp 98.8 F 12/30/16 07:00 Pulse 80 12/30/16 07:00 Resp 16 12/30/16 07:00 BP 139/62 12/30/16 07:00 Pulse Ox 97 12/30/16 07:00 Intake & Output 12/29/16 12/30/16 12/30/16 18:59 06:59 18:59 Intake Total 310 200 Output Total 1300 400 Balance -990 -200 Weight 97.5 kg Intake: Oral 200 Blood Product 310 Rc Pheresis As-3 Unit 310 [id number] Output: Urine 1300 400 Uretheral (Jewell) 200 Other: Voiding Method Indwelling Catheter Indwelling Catheter Indwelling Catheter # Bowel Movements 0 - Constitutional Constitutional Comment(s): Patient was sleeping - Gastrointestinal Gastrointestinal Comment(s): Abdomen is soft - Psychiatric Psychiatric Comment(s): Patient is sleeping - Labs CBC & Chem 7: 12/30/16 07:43 12/30/16 07:43 Labs: Abnormal Lab Results - Last 24 Hours (Table) 12/29/16 12/29/16 12/29/16 Range/Units 11:54 17:11 18:35 WBC (3.8-10.6) k/uL RBC (3.80-5.40) m/uL Hgb (11.4-16.0) gm/dL Hct (34.0-46.0) % RDW (11.5-15.5) % Plt Count (150-450) k/uL Potassium 2.6 L* (3.5-5.1) mmol/L Chloride (98-107) mmol/L BUN (7-17) mg/dL POC Glucose (mg/dL) 104 H (75-99) mg/dL Calcium (8.4-10.2) mg/dL Ur Random Sodium (30-90) mmol/L Crossmatch See Detail 12/30/16 12/30/16 12/30/16 Range/Units 07:43 07:43 11:18 WBC 3.7 L (3.8-10.6) k/uL RBC 2.31 L (3.80-5.40) m/uL Hgb 7.3 L (11.4-16.0) gm/dL Hct 21.4 L (34.0-46.0) % RDW 18.6 H (11.5-15.5) % Plt Count 129 L (150-450) k/uL Potassium 2.3 L* (3.5-5.1) mmol/L Chloride 112 H (98-107) mmol/L BUN 5 L (7-17) mg/dL POC Glucose (mg/dL) (75-99) mg/dL Calcium 7.1 L (8.4-10.2) mg/dL Ur Random Sodium 133 H (30-90) mmol/L Crossmatch 12/30/16 Range/Units 11:47 WBC (3.8-10.6) k/uL RBC (3.80-5.40) m/uL Hgb (11.4-16.0) gm/dL Hct (34.0-46.0) % RDW (11.5-15.5) % Plt Count (150-450) k/uL Potassium (3.5-5.1) mmol/L Chloride (98-107) mmol/L BUN (7-17) mg/dL POC Glucose (mg/dL) 72 L (75-99) mg/dL Calcium (8.4-10.2) mg/dL Ur Random Sodium (30-90) mmol/L Crossmatch Assessment and Plan Plan: Impression/plan: 1. Anemia of uncertain etiology 2. Nausea and vomiting 3. Biliary dyskinesia 4. Recent onset of ischemic bowel status post bowel resection 5. Elevated BUN/creatinine/kidney disease 6. Anxiety depression 7. Urinary tract infection treated 8. Ecchymosis of the upper extremities 9. Bilateral mastectomies Plan: 1. Etiology of nausea and vomiting uncertain, I'm not convinced this is related to biliary dyskinesia and at this time would not recommend surgical intervention. 2. Continue medical treatment 3. We'll obtain operative reports from [facility] 4. We'll follow with you 5. Have discussed case with Dr. Sanders at this time do not recommend surgical intervention
[2016-12-30] MEDS: D5-0.45% NACL WITH KCL 20MEQ/L 1,000 ML IV SCH (13:22)
[2016-12-30] MEDS: POTASSIUM CHLORIDE ORAL LIQUID 40 MEQ/30 ML CUP NG-TUBE SCH ×2 (14:55→15:32)
[2016-12-30 17:00] LABS: Glucose,Whole Blood 73 mg/dL (75-99)
[2016-12-30 21:07] LABS: Glucose,Whole Blood 91 mg/dL (75-99)
[2016-12-30] MEDS: ATORVASTATIN 10 MG TAB PO SCH (21:08)
[2016-12-30] MEDS: MIRTAZAPINE 15 MG TAB PO SCH (21:08)
[2016-12-30] MEDS: CHOLECALCIFEROL 1,000 UNIT TAB PO SCH (21:08)
[2016-12-30] MEDS ORDERED: Potassium Replacement Protocol 1 EACH MISC MISCELLANE PRN (21:58)
[2016-12-31] MEDS: D5-0.45% NACL WITH KCL 20MEQ/L 1,000 ML IV SCH ×2 (05:38→13:27)
[2016-12-31 07:21] LABS: Glucose,Whole Blood 80 mg/dL (75-99)
[2016-12-31] MEDS: ALPRAZolam 0.25 MG TAB PO SCH ×2 (07:41→20:59)
[2016-12-31] MEDS: AMIODARONE 100 MG TAB PO SCH (08:35)
[2016-12-31] MEDS: SENNOSIDES-DOCUSATE SODIUM 1 EACH TAB PO SCH ×2 (08:35→22:20)
[2016-12-31] MEDS: PANTOPRAZOLE 40 MG TABLET PO SCH (08:35)
[2016-12-31] MEDS: SPIRONOLACTONE 25 MG TAB PO SCH (08:35)
[2016-12-31] MEDS: METOPROLOL SUCCINATE (ER) 50 MG TAB.ER.24H PO SCH (08:36)
[2016-12-31 09:38] LABS: Anisocytosis Slight; Basophils % (A) 0 %; Eosinophils # (A) 0.2 k/uL (0-0.7); Eosinophils % (A) 5 %; HCT 23.1 % (34.0-46.0); HDW 3.88; HGB 7.6 gm/dL (11.4-16.0); Hypochromasia Slight; Luc # (Auto) 0.09; Luc % (Auto) 2; Lymphocytes # (A) 1.3 k/uL (1.0-4.8); Lymphocytes % (A) 30 %; MCH 31.2 pg (25.0-35.0); MCHC 32.9 g/dL (31.0-37.0); MCV 94.8 fL (80.0-100.0); Macrocytosis Slight; Mean Platelet Volume 7.3; Monocytes # (A) 0.2 k/uL (0-1.0); Monocytes % (A) 6 %; Neutrophils # (A) 2.3 k/uL (1.3-7.7); Neutrophils % (A) 57 %; Poikilocytosis Slight; RBC 2.44 m/uL (3.80-5.40); WBC 4.1 k/uL (3.8-10.6); WBC (Perox) 4.13
[2016-12-31 10:08] LABS: ALT 36 U/L (9-52); AST 29 U/L (14-36); Alkaline Phosphatase 54 U/L (38-126); Anion Gap 6 mmol/L; Blood Urea Nitrogen 5 mg/dL (7-17); Calcium 7.2 mg/dL (8.4-10.2); Carbon Dioxide 20 mmol/L (22-30); Chloride 113 mmol/L (98-107); Glucose 73 mg/dL (74-99); Magnesium 1.8 mg/dL (1.6-2.3); Non-African American GFR(MDRD) >60 (>60 ml/min/1.73 sqM); Potassium 3.5 mmol/L (3.5-5.1); Sodium 139 mmol/L (137-145); Total Bilirubin 0.7 mg/dL (0.2-1.3)
--- NOTE | 2016-12-31 12:01 | US ---
EXAMINATION TYPE: US venous doppler duplex UE DATE OF EXAM: 12/31/2016 11:41 AM COMPARISON: No previous CLINICAL HISTORY: edema in bilateral arm. SIDE PERFORMED: Bilateral Technically difficult and limited study due to patient body habitus and bilateral arm edema Right Arm: Visualized portions appear negative for DVT, line seen within patent basilic vein, limited visualization of brachial vein due to bandage around arm Left Arm: Appears negative for DVT IMPRESSION: No evidence of deep venous thrombosis in the left and right arm.
[2016-12-31 12:03] LABS: Glucose,Whole Blood 82 mg/dL (75-99)
--- NOTE | 2016-12-31 12:03 | P.PN ---
Arlette Shelton is a 76-year-old female followed up with acute kidney injury which has resolved but continues to have significant hypokalemia which is thought to be from decreased intake but the degree of hypokalemia was severe with potassium 2.1 yesterday, additionally she was confused and sleepy yesterday very uncooperative. This morning she is somewhat better more responsive and talking and cooperative. She just came back from a Doppler flow off her upper arms results are pending She denies any fever chills cough shortness of breath nausea vomiting. Has poor appetite though. She remains mostly bedridden. Her potassium has been replaced and her labs are showing improvement today. Additionally on Aldactone was started to conserve her potassium yesterday. Workup for the hyperkalemia has shown slightly high potassium loss in her urine in the face of hypokalemia. Urine potassium was 38.9 mmol, urine osmolality is 493, urine sodium was 133 and urine creatinine was 105. Urine total random protein is 37 mg. Objective - Vital Signs Vital signs: Vital Signs Temp 98.3 F 12/31/16 08:12 Pulse 68 12/31/16 08:12 Resp 16 12/31/16 08:12 BP 125/59 12/31/16 08:12 Pulse Ox 96 12/31/16 08:12 Intake & Output 12/30/16 12/31/16 12/31/16 18:59 06:59 18:59 Intake Total 0 Output Total 350 300 Balance -350 -300 Weight 79 kg Intake: Oral 0 Output: Urine 350 300 Uretheral (Jewell) 150 Other: Voiding Method Indwelling Catheter Indwelling Catheter Indwelling Catheter # Bowel Movements 0 On examination she is awake alert seems to be much more cooperative and answers questions. HEENT exam no JVP neck is supple no facial asymmetry Lungs are clear to auscultation good air entry bilaterally. Heart sounds are unremarkable no murmur rub gallop Abdomen soft nontender no organomegaly status masses noted Extremity exam reveals no edema Neurologically awake alert no focal motor deficit. Seems to be oriented. - Labs CBC & Chem 7: 12/31/16 08:36 12/31/16 08:36 Labs: Abnormal Lab Results - Last 24 Hours (Table) 12/30/16 12/30/16 12/30/16 Range/Units 11:18 11:18 14:07 RBC (3.80-5.40) m/uL Hgb (11.4-16.0) gm/dL Hct (34.0-46.0) % RDW (11.5-15.5) % Potassium 2.7 L* (3.5-5.1) mmol/L Chloride (98-107) mmol/L Carbon Dioxide (22-30) mmol/L BUN (7-17) mg/dL Glucose (74-99) mg/dL POC Glucose (mg/dL) (75-99) mg/dL Calcium (8.4-10.2) mg/dL Total Protein (6.3-8.2) g/dL Albumin (3.5-5.0) g/dL U Random Total Protein 37 H (<12) mg/dL Ur Random Sodium 133 H (30-90) mmol/L 12/30/16 12/30/16 12/31/16 Range/Units 16:58 21:02 02:05 RBC (3.80-5.40) m/uL Hgb (11.4-16.0) gm/dL Hct (34.0-46.0) % RDW (11.5-15.5) % Potassium 3.2 L 3.3 L (3.5-5.1) mmol/L Chloride (98-107) mmol/L Carbon Dioxide (22-30) mmol/L BUN (7-17) mg/dL Glucose (74-99) mg/dL POC Glucose (mg/dL) 73 L (75-99) mg/dL Calcium (8.4-10.2) mg/dL Total Protein (6.3-8.2) g/dL Albumin (3.5-5.0) g/dL U Random Total Protein (<12) mg/dL Ur Random Sodium (30-90) mmol/L 12/31/16 12/31/16 Range/Units 08:36 08:36 RBC 2.44 L (3.80-5.40) m/uL Hgb 7.6 L (11.4-16.0) gm/dL Hct 23.1 L (34.0-46.0) % RDW 19.0 H (11.5-15.5) % Potassium (3.5-5.1) mmol/L Chloride 113 H (98-107) mmol/L Carbon Dioxide 20 L (22-30) mmol/L BUN 5 L (7-17) mg/dL Glucose 73 L (74-99) mg/dL POC Glucose (mg/dL) (75-99) mg/dL Calcium 7.2 L (8.4-10.2) mg/dL Total Protein 4.0 L (6.3-8.2) g/dL Albumin 1.6 L (3.5-5.0) g/dL U Random Total Protein (<12) mg/dL Ur Random Sodium (30-90) mmol/L Assessment and Plan Plan: Impression. 1. Severe hypokalemia with potassium being 2.3 on 12/30/2016, with a concurrent bicarb of 22 to mildly acidotic. Workup has shown urinary potassium wasting with a urine random potassium off 38.9, with adequate urine sodium of 133. Urine creatinine to potassium ratio is also suggestive of potassium wastage. Normal ratio is 13 mEq per gram of creatinine. The cause of the renal potassium wasting though is not clear. There is no suggestion off myeloma , sarcoidosis, connective tissue diseases, heavy-metal poisoning or autoimmune diseases. No other medication that could cause tubular pathology. This is an acute event and not a chronic potassium wasting disease. Use of diuretics is not considered as this happened in the hospital. Currently she is on Aldactone started 12/30/2016 yesterday and the potassium is getting up. Today's potassium is 3.5 2. Magnesium replete. 2. Acute kidney injury resolved. Creatinine 0.6 3. Confusion and not very apparent cause. Resolving this morning on 12/31/2016 4. Recent history of bowel ischemia and was admitted [facility]. Status post bowel resection, with poor appetite Recommendation. 1. No further need for potassium replacement as she is on Aldactone. Watch her blood pressure her potassium closely. In a day or 2. Potassium is normal [place] discontinued Aldactone and recheck her
[2016-12-31] MEDS: FERROUS SULFATE 325 MG TAB PO SCH (13:16)
[2016-12-31] MEDS: CYANOCOBALAMIN 500 MCG TAB PO SCH (13:16)
--- NOTE | 2016-12-31 13:56 | P.PN ---
Progress Note - Text Interval history: Patient was seen for psychiatric follow-up ,was laying in her bed . She states that "She is tired being in hospital "reports that she wishing to be discharged home "I AM MISSING MY HOME",still endorsing poor appetite ,feeling helpless ,tired ,no energy or motivation ,restless sleep and some anxiety regarding related to declining of her physical health Mental status exam: She is alert and cooperative with the interview. Her affect is constricted ,psychomotor retardation Her speech is non spontaneous , limited in productivity Her mood is "TIRED" She denies any thoughts of harm to self or others. She denies any hallucinations. There is no evidence of any active psychosis or reji,insight and judgment fair Plan: Continue medical management for her physical issues,continue xanax and Remeron ,will add Lexapro ,will continue to follow-up ,patient does not inpatient psychiatric hospitalization
--- NOTE | 2016-12-31 14:28 | P.PN ---
Subjective 76-year-old female was hospitalized in to to 11/25/2016 for acute blood loss anemia with hemoglobin of 5.0 with intractable nausea with no vomiting she had recent hemicolectomy at [facility] she was hospitalized had blood transfusion her hemoglobin was stabilized and ended up going back to [facility] on the [place] which she seen Dr. Quintanilla a regular basis. Earlier last year in September patient was transferred to [facility] for severe abdominal pain and severe anemia and end up going for exploratory laparotomy with SVR for ischemic bowel on 09/29/2016 and return to the OR for closure Handswen anastomosis 2 at [facility] on 09/30/2016. She had 2 different occasions in October when she presented to [facility] complaining of nausea and vomiting along with no bowel movement for several day she ended up going for EGD on November 27 was negative and colonoscopy was scheduled as an outpatient hemoglobin was pain above 7 did not require any further transfusion and did well going back to [facility] on the [place] her anticoagulation was resumed was doing better with it. Patient presented to [facility] in 12/14/2016 with change mental status worsening confusion dehydration significantly elevated creatinine BUN with stage III chronic kidney disease along with acute kidney injury possible ATN. Patient found to have UTI as well was started on IV antibiotics with Levaquin hydration and admitted to the hospital. Surprisingly continue complain of worsening abdominal pain along with worsening lower back pain and right sided hip pain with no recent injury. 12/16: Patient is continued on IV fluids at 100 mL per hour. Repeat BUN is 24 1.77. Patient's nausea is better but continues and scopolamine patch ordered. Patient has had very little urine output and Jewell catheter has been ordered. 12/17: Patient status appears to be much improved but she does continue to have concerns about nausea. Consult is in place with GI. Nephrology is following for acute kidney injury and continued on IV fluids at 100 mL per hour. She is continued on Zyvox for VRE urinary tract infection. Anticipate discharge back to care home on Sunday or Sunday. 12/18: Patient has been seen by Dr. Gonzalez with possibility of central etiology for her nausea especially with her positional symptoms and visual field issues. Dr. Negro has cleared for discharge. Repeat BUN 13 and creatinine 1.07. patient's daughter is concerned about her change in overall health and mental status since September when all her illnesses started. Patient appears to be somewhat paranoid today. Marinol decreased to 2.5 mg twice daily. 12/19: Patient has been seen by neurology. MRI showed mild diffuse age-related cerebral atrophy and moderate chronic small vessel ischemic change. Persistent right-sided paranasal sinus disease possibly acute sinusitis. Electrolytes are improved from yesterday. Attempted to determine when Marinol was started. It appears that was started at [facility] on her last hospitalization in November. Patient is able to state the city, month and year. 12/20: patient's mental status is slightly improved today. She is complaining of feeling that things are getting stuck in her esophagus. She was evaluated by speech therapy. GI has signed off but spoke with Dr. Guzman and she will reevaluate. Esophagram was ordered. IV fluids changed to saline lock and Lasix 1 ordered. 12/21: Patient has been seen by Dr. Julien Guzman. Esophagram was negative with no plan for any intervention at this time. Plan to encourage oral intake, dietitian consult for protein supplement BUN 10 and creatinine 0.96. Nephrology is following. Hemoglobin is stable at 8.8. Anticipate discharge back to [facility] tomorrow. 12/22: patient continues to have gangrenous in his food is put in her mouth. She states she has not had a bowel movement for greater than 1 week. Dulcolax suppository added. Marinol decreased to 2.5 mg daily. 12/25: Over the weekend, family was requesting information about PEG tube placement deferred to GI service as patient continued to have retching and unable to take in food. Patient refused PEG. Patient complains that she can not taste normal. Consult with Dr. Garcia if amiodarone could be causing/contribution to dysgeusia. Zyvox has been discontinued by Dr. Martinez. 12/26: patient continues to have significant retching. Hemoglobin is at 7.3. Consults added for psychiatry for psychiatric reasons for retching as well as patient has stated to her nurse to tell her family to let her . Consult added with Dr. Rondon to rule out paraneoplastic syndrome. Ultrasound of the abdomen right upper quadrant ordered. 12/27: Right upper quadrant ultrasound was negative. Patient has been seen by Dr. Lopez. Echocardiogram is pending. TSH. He does not feel swallowing difficulty is due to amiodarone. H. pylori ordered. Dr. Gonzalez he is scheduled patient for EGD on December 28. This is on hold. HIDA scan has been ordered. Patient is more confused today. 12/28: Patient has been seen by oncology with plan for tumor markers. [place] 2729 is normal at 25.8 and CA 153 is 20.1 within normal limits. She has been seen by psychiatry the patient was unable to participate. CAT scan of the chest was negative for pulmonary embolism. There are pleural effusions and cardiomegaly could be related to congestive heart failure. Pleural fluid is new compared to recent CAT scan on 12/15/2016. Any cardiology, echo reports have been requested from [facility]. 12/29:patient underwent HIDA scan that showed 20% EF. potassium of 3.1 will be replaced IV, hemoglobin 7.0 for which one unit of packed RBCs ordered. Patient has no IV access for this and PICC line has been ordered. 12/30: Patient is very drowsy, opens her eyes in response to verbal, however she is not participating or eating much. 12/31: Patient is more awake today, she still not eating much, discussed the case with , and the patient was diagnosed with potassium wasting without any evidence of any multiple myeloma, already sarcoidosis or mixed connective tissue disorder. Her potassium is much better today at 3.3, we'll discontinue potassium replacement and continue with spironolactone for now. We will order venous Doppler of both upper extremities because of increased swelling and a PIC line in the right upper extremity. Objective - Vital Signs Vital signs: Vital Signs Temp 98.3 F 12/31/16 08:12 Pulse 68 12/31/16 08:12 Resp 16 12/31/16 08:12 BP 125/59 12/31/16 08:12 Pulse Ox 96 12/31/16 08:12 Intake & Output 12/30/16 12/31/16 12/31/16 18:59 06:59 18:59 Intake Total 0 Output Total 350 300 Balance -350 -300 Weight 79 kg Intake: Oral 0 Output: Urine 350 300 Uretheral (Jewell) 150 Other: Voiding Method Indwelling Catheter Indwelling Catheter Indwelling Catheter # Bowel Movements 0 - Exam - Exam General appearance: no average body habitus, cooperative, no disheveled, mild distress, no morbidly obese, no no acute distress, no obese, no severe distress , thin - EENT Eyes: no abnormal pupil, no anicteric sclerae, no disc margins sharp, no edentulous, no EOMI, no PERRLA, no fundus normal, no photophobia, no dentition normal, no poor dentition, no ptosis, no scleral icterus, normal appearance ENT: no hard of hearing, no hearing grossly normal, no NA/AT, normal oropharynx , no other, no pharyngeal erythema, no thrush, no tonsillar exudates, no tonsillar swelling Ears: bilateral: normal, bulging - Neck Neck: no lymphadenopathy, normal ROM, no other, no rigidity, no stridor, no thyromegaly Carotids: bilateral: upstroke normal, upstroke delayed Thyroid: bilateral: normal size - Respiratory Respiratory: bilateral: diminished, dullness, rales, rhonchi, wheezing - Cardiovascular Rhythm: regular Heart sounds: normal: S1, S2 Abnormal Heart Sounds: systolic murmur, S3 Gallop - Gastrointestinal Scar tissue from recent surgery and the midline with no sign of infection but had large keloid and area of old hematoma on it. General gastrointestinal: no absent bowel sounds, decreased bowel sounds, distended, no hepatomegaly, no hyperactive bowel sounds, normal bowel sounds, no organomegaly, no rigid, scaphoid, soft, no splenomegaly, tenderness, no umbilical hernia, no ventral hernia - Integumentary Integumentary: no calor, cellulitis, no cyanotic, no decreased turgor, no flushed, no jaundiced, no normal, no normal turgor, pale, rash, no ulcer - Neurologic Neurologic: CNII-XII intact - Musculoskeletal Musculoskeletal: gait normal, generalized weakness, strength equal bilaterally - Psychiatric Psychiatric: Very stuporous opens her eyes response of normal saline however she is not eating much and not following much commands. - Labs CBC & Chem 7: 12/31/16 08:36 12/31/16 08:36 Labs: Abnormal Lab Results - Last 24 Hours (Table) 12/30/16 12/30/16 12/30/16 Range/Units 11:18 11:18 11:47 Potassium (3.5-5.1) mmol/L POC Glucose (mg/dL) 72 L (75-99) mg/dL U Random Total Protein 37 H (<12) mg/dL Ur Random Sodium 133 H (30-90) mmol/L 12/30/16 12/30/16 12/30/16 Range/Units 14:07 16:58 21:02 Potassium 2.7 L* 3.2 L (3.5-5.1) mmol/L POC Glucose (mg/dL) 73 L (75-99) mg/dL U Random Total Protein (<12) mg/dL Ur Random Sodium (30-90) mmol/L 12/31/16 Range/Units 02:05 Potassium 3.3 L (3.5-5.1) mmol/L POC Glucose (mg/dL) (75-99) mg/dL U Random Total Protein (<12) mg/dL Ur Random Sodium (30-90) mmol/L Assessment and Plan Plan: Assessment and Plan Plan: 1 metabolic encephalopathy secondary to infection, anemia, lower back pain, side effect medication along with UTI. Treat underlying disease. MRI as above. 2 sepsis with VRE UTI: With patient's current condition patient will be on IV antibiotics continue hydration watch symptoms closely repeat UA and wait for culture, with the any unusual infections specially with the resistant bacteria in the past will have patient seen infectious disease. 3 acute kidney injury most likely ATN with chronic kidney disease: Continue hydration repeat BUN/creatinine daily for the next few days. 4 recurrent abdominal pain with no significant abnormalities on CAT scan. 5 right-sided hip pain with no clear evidence of trauma recently with x-ray showing osteoarthrosis 6 recurrent anemia with blood transfusion different occasion last few weeks hemoglobin has been stable at this point continue to watch for any further recurrent bleed. transfuse 1 unit of packed RBCs. 7 chronic edema: Has been on diuretics doing well. 8 A. fib with RVR with history of paroxysmal atrial fibrillation: Patient has been on Eliquis 5 mg twice a day along with metoprolol 100 mg daily and amiodarone 200 mg a day pulse rates under control currently. 9 hyperlipidemia: Has been on Lipitor. 10 lower back pain with worsening symptom will continue patient on smaller dose of hydrocodone or tramadol along with mild muscle relaxer. 11 recent history of hemicolectomy with complication: Patient still been watch by surgery. No obstruction this time. 12. metabolic acidosis. 13.dysphagia with lack of appetite and dysgeusia. Esophagram normal. Dr. Guzman no need for intervention. Possibly due to constipation. Dulcolax suppository ordered. psychiatry consult, oncology consult for rule out paraneoplastic syndrome, cardiology consult rule out amiodarone as possible cause, patient underwent EGD and that showed hiatal hernia with doubt any significant changes. Biopsy were obtained still pending at time of dictation. 14. Severe hypokalemia. Change her IV fluid to D5 half-normal saline with 20 KCl, continue with IV potassium and oral potassium replacement as ordered by nephrology. Monitor potassium very closely, monitor magnesium level tomorrow morning. 15. Her prognosis is very guarded. 16. Patient is Full code. 17. Bilateral upper extremity edema. Likely related to anasarca, however venous Doppler of both upper extremities will be obtained. 18. Potassium renal wasting. The etiology of which still unclear.
[2016-12-31 17:10] LABS: Glucose,Whole Blood 93 mg/dL (75-99)
--- NOTE | 2016-12-31 17:55 | P.PN ---
Subjective Patient now presents from [facility] to [facility] emergency center by EMS for dehydration and elevated creatinine. CAT scan of the brain showed cerebral atrophy with right-sided maxillary and ethmoid sinusitis and no change compared to prior. Chest x-ray shows no acute cardiopulmonary disease. On recent blood draw her BUN was 35 and creatinine 3.10 and repeat here is 39 and 3.50. Patient is complaining of pain all over especially in the back and the hips right more so than left. Apparently she has had falls at [facility]. Blood pressure was low with a heart rate of 47. Apparently patient has not been eating and drinking and had worsening confusion. Patient does complain of nausea without vomiting and complains of dizziness with movement. White count 6.7, hemoglobin 9.7. BUN 39 and creatinine 3.5. Urinalysis was turbid, blood trace, leukoesterase large, WBC 75, WBC clumps many, bacteria many. Urine drug screen was positive for marijuana and patient is on Marinol. Patient was started on Levaquin and [facility]. Antibiotic was subsequently changed to Zyvox as her last urine culture done on November 24 was enterococcus gallinarum, multidrug resistant. Right hip x-ray was done that showed osteoarthrosis with no acute abnormality. CAT scan of the abdomen and pelvis without contrast has been done and report is pending. Patient has been seen by Dr. Penaloza for non-oliguric acute kidney injury. the nausea and retching are further improved. Still not eating. Patient's family is concerned. Relates that the mother's been ill since September with similar symptoms. Upper GI without obstruction with a history of stricture. Echo has been performed. There is abnormality into the stomach and biopsies have been obtained. Objective - Vital Signs Vital signs: Vital Signs Temp 97.3 F L 12/31/16 15:00 Pulse 66 12/31/16 15:00 Resp 16 12/31/16 15:00 BP 122/58 12/31/16 15:00 Pulse Ox 97 12/31/16 15:00 Intake & Output 12/30/16 12/31/16 12/31/16 18:59 06:59 18:59 Intake Total 0 20 Output Total 350 300 325 Balance -350 -300 -305 Weight 79 kg Intake: Oral 0 20 Output: Urine 350 300 325 Uretheral (Jewell) 150 Other: Voiding Method Indwelling Catheter Indwelling Catheter Indwelling Catheter # Bowel Movements 1 - Exam en: This is a 76-year-old female. HEENT: Head is atraumatic, normocephalic. Pupils equal, round. Sclerae is anicteric. NECK: Supple. No JVD. No lymphadenopathy. No thyromegaly. LUNGS: Clear to auscultation. No wheezes or rhonchi. No intercostal retractions. HEART: Regular rate and rhythm. No murmur. ABDOMEN: Soft. Bowel sounds are present. No masses. Generalized tenderness. EXTREMITIES: Positive bilateral pedal edema. No calf tenderness. NEUROLOGICAL: Patient is awake, alert and oriented x1 - Labs CBC & Chem 7: 12/31/16 08:36 12/31/16 08:36 Labs: Abnormal Lab Results - Last 24 Hours (Table) 12/30/16 12/30/16 12/31/16 Range/Units 11:18 21:02 02:05 RBC (3.80-5.40) m/uL Hgb (11.4-16.0) gm/dL Hct (34.0-46.0) % RDW (11.5-15.5) % Potassium 3.2 L 3.3 L (3.5-5.1) mmol/L Chloride (98-107) mmol/L Carbon Dioxide (22-30) mmol/L BUN (7-17) mg/dL Glucose (74-99) mg/dL Calcium (8.4-10.2) mg/dL Total Protein (6.3-8.2) g/dL Albumin (3.5-5.0) g/dL U Random Total Protein 37 H (<12) mg/dL 12/31/16 12/31/16 Range/Units 08:36 08:36 RBC 2.44 L (3.80-5.40) m/uL Hgb 7.6 L (11.4-16.0) gm/dL Hct 23.1 L (34.0-46.0) % RDW 19.0 H (11.5-15.5) % Potassium (3.5-5.1) mmol/L Chloride 113 H (98-107) mmol/L Carbon Dioxide 20 L (22-30) mmol/L BUN 5 L (7-17) mg/dL Glucose 73 L (74-99) mg/dL Calcium 7.2 L (8.4-10.2) mg/dL Total Protein 4.0 L (6.3-8.2) g/dL Albumin 1.6 L (3.5-5.0) g/dL U Random Total Protein (<12) mg/dL Laboratory Results WBC 4.1 k/uL (3.8-10.6) 12/31/16 08:36 RBC 2.44 m/uL (3.80-5.40) L 12/31/16 08:36 Hgb 7.6 gm/dL (11.4-16.0) L 12/31/16 08:36 Hct 23.1 % (34.0-46.0) L 12/31/16 08:36 MCV 94.8 fL (80.0-100.0) 12/31/16 08:36 MCH 31.2 pg (25.0-35.0) 12/31/16 08:36 MCHC 32.9 g/dL (31.0-37.0) 12/31/16 08:36 RDW 19.0 % (11.5-15.5) H 12/31/16 08:36 Plt Count 159 k/uL (150-450) 12/31/16 08:36 Neutrophils % 57 % 12/31/16 08:36 Lymphocytes % 30 % 12/31/16 08:36 Monocytes % 6 % 12/31/16 08:36 Eosinophils % 5 % 12/31/16 08:36 Basophils % 0 % 12/31/16 08:36 Neutrophils # 2.3 k/uL (1.3-7.7) 12/31/16 08:36 Lymphocytes # 1.3 k/uL (1.0-4.8) 12/31/16 08:36 Monocytes # 0.2 k/uL (0-1.0) 12/31/16 08:36 Eosinophils # 0.2 k/uL (0-0.7) 12/31/16 08:36 Basophils # 0.0 k/uL (0-0.2) 12/31/16 08:36 Hypochromasia Slight 12/31/16 08:36 Poikilocytosis Slight 12/31/16 08:36 Anisocytosis Slight 12/31/16 08:36 Macrocytosis Slight 12/31/16 08:36 PT 15.3 sec (9.0-12.0) H 12/14/16 20:54 INR 1.6 (<1.1) 12/14/16 20:54 APTT 28.0 sec (22.0-30.0) 12/14/16 20:54 Sodium 139 mmol/L (137-145) 12/31/16 08:36 Potassium 3.5 mmol/L (3.5-5.1) 12/31/16 08:36 Chloride 113 mmol/L (98-107) H 12/31/16 08:36 Carbon Dioxide 20 mmol/L (22-30) L 12/31/16 08:36 Anion Gap 6 mmol/L 12/31/16 08:36 BUN 5 mg/dL (7-17) L 12/31/16 08:36 Creatinine 0.60 mg/dL (0.52-1.04) 12/31/16 08:36 Est GFR (MDRD) Af Amer >60 (>60 ml/min/1.73 sqM) 12/31/16 08:36 Est GFR (MDRD) Non-Af >60 (>60 ml/min/1.73 sqM) 12/31/16 08:36 Glucose 73 mg/dL (74-99) L 12/31/16 08:36 POC Glucose (mg/dL) 93 mg/dL (75-99) 12/31/16 17:09 POC Glu [employer] ID Sylvia Gimenez 12/31/16 17:09 Plasma Lactic Acid Deion 1.9 mmol/L (0.7-2.0) 12/14/16 20:54 Calcium 7.2 mg/dL (8.4-10.2) L 12/31/16 08:36 Phosphorus 2.9 mg/dL (2.5-4.5) 12/29/16 09:04 Magnesium 1.8 mg/dL (1.6-2.3) 12/31/16 08:36 Iron 33 ug/dL (37-170) L 12/14/16 20:54 TIBC 155 ug/dL (265-497) L 12/14/16 20:54 % Saturation 21.3 % (20-50) 12/14/16 20:54 Ferritin 298 ng/mL (11-264) H 12/14/16 20:54 Total Bilirubin 0.7 mg/dL (0.2-1.3) 12/31/16 08:36 AST 29 U/L (14-36) 12/31/16 08:36 ALT 36 U/L (9-52) 12/31/16 08:36 Alkaline Phosphatase 54 U/L (38-126) 12/31/16 08:36 Total Creatine Kinase 76 U/L (30-135) 12/14/16 20:54 CK-MB (CK-2) 0.6 ng/mL (0.0-2.4) 12/14/16 20:54 CK-MB (CK-2) Rel Index 0.8 12/14/16 20:54 Troponin I 0.022 ng/mL (0.000-0.034) 12/14/16 20:54 Total Protein 4.0 g/dL (6.3-8.2) L 12/31/16 08:36 Albumin 1.6 g/dL (3.5-5.0) L 12/31/16 08:36 Lipase 70 U/L (23-300) 12/26/16 07:52 CA 15-3 Antigen 20.1 U/mL (<35.1) 12/26/16 07:52 CA 27-29 25.8 U/mL (0.0-38.5) 12/25/16 08:36 TSH 0.936 mIU/L (0.465-4.680) 12/26/16 07:52 Urine Color Yellow 12/14/16 20:52 Urine Appearance Turbid (Clear) H 12/14/16 20:52 Urine pH 5.0 (5.0-8.0) 12/14/16 20:52 Ur Specific Rainbow 1.014 (1.001-1.035) 12/14/16 20:52 Urine Protein 1+ (Negative) H 12/14/16 20:52 Urine Glucose (UA) Negative (Negative) 12/14/16 20:52 Urine Ketones Negative (Negative) 12/14/16 20:52 Urine Blood Trace (Negative) H 12/14/16 20:52 Urine Nitrate Negative (Negative) 12/14/16 20:52 Urine Bilirubin 1+ (Negative) H 12/14/16 20:52 Urine Urobilinogen 2.0 mg/dL (<2.0) 12/14/16 20:52 Ur Leukocyte Esterase Large (Negative) H 12/14/16 20:52 Urine WBC 75 /hpf (0-5) H 12/14/16 20:52 Urine WBC Clumps Many /hpf (None) H 12/14/16 20:52 Ur Squamous Epith Cells 2 /hpf (0-4) 12/14/16 20:52 Urine Bacteria Many /hpf (None) H 12/14/16 20:52 Hyaline Casts 631 /lpf (0-2) H 12/14/16 20:52 Urine Osmolality 493 mosm/kg (50-1400) 12/30/16 11:18 Ur Random Creatinine 105.2 mg/dL 12/30/16 11:18 U Random Total Protein 37 mg/dL (<12) H 12/30/16 11:18 Ur Random Sodium 133 mmol/L (30-90) H 12/30/16 11:18 Ur Random Potassium 38.9 mmol/L 12/30/16 11:18 Urine Opiates Screen Not Detected (NotDetected) 12/14/16 20:52 Ur Oxycodone Screen Not Detected (NotDetected) 12/14/16 20:52 Urine Methadone Screen Not Detected (NotDetected) 12/14/16 20:52 Ur Propoxyphene Screen Not Detected (NotDetected) 12/14/16 20:52 Ur Barbiturates Screen Not Detected (NotDetected) 12/14/16 20:52 U Tricyclic Antidepress Not Detected (NotDetected) 12/14/16 20:52 Ur Phencyclidine Scrn Not Detected (NotDetected) 12/14/16 20:52 Ur Amphetamines Screen Not Detected (NotDetected) 12/14/16 20:52 U Methamphetamines Scrn Not Detected (NotDetected) 12/14/16 20:52 U Benzodiazepines Scrn Not Detected (NotDetected) 12/14/16 20:52 Urine Cocaine Screen Not Detected (NotDetected) 12/14/16 20:52 U Marijuana (THC) Screen Detected (NotDetected) H 12/14/16 20:52 Blood Type O Negative 12/29/16 11:54 Blood Type Recheck No 12/29/16 11:54 Antibody Screen NEGATIVE 12/29/16 11:54 Crossmatch See Detail 12/29/16 11:54 Spec Expiration Date 01/01/2017 54212/29/16 11:54 Microbiology 12/14/16 21:06 Blood Blood Culture - Final No Growth after 144 hours 12/15/16 13:15 Urine,Catheterized Urine Culture - Final Pathology pending from stomach biopsies Assessment and Plan (1) Acute renal failure Narrative/Plan: 76-year-old woman with multiple medical troubles presents to Hospital acutely ill. Has acute renal failure showing some improvement. Urinary infection. Recent urine infection with vancomycin-resistant enterococci. Currently receiving Zyvox and being monitored. The significant somewhat better today with hydration and control of her nausea. Does have much less nausea and emesis today. She over still quite miserable. Receiving anxiolytics and some pain control. Laboratories being followed. Her nutritional supplementation when able. Patient's son was present. Relates that in September before the mother became ill. She was independent. Driving. Doing her own shopping preparing her own meals. Constantly they are quite concerned about her drastic overall decline. Has been seen by gastroenterology. Plan for EGD today to further evaluate for the refractory nausea and retching. Neurologic consult performed, work up negative so far. Marinol to be held Discontinue Zyvox negative urine cultures, no change since she's been off antibiotic therapy. There has been a mild improvement of her status since Marinol has been held. But still not doing well overall. We'll not need antibiotic therapy or discharge Will go to rehab once her nausea improved. The patient's been seen by cardiology and echocardiogram without vegetation. Also be seen by psychiatry for the possibility of a neurogenic etiology of her retching. EGD is performed. There appears to marked abnormality to the stomach and biopsies been obtained. Await the results. Status: Acute (2) Altered mental status Status: Acute (3) Urinary tract infection Status: Acute
[2016-12-31 20:41] LABS: Glucose,Whole Blood 83 mg/dL (75-99)
[2016-12-31] MEDS: MIRTAZAPINE 15 MG TAB PO SCH (20:59)
[2016-12-31] MEDS: ATORVASTATIN 10 MG TAB PO SCH (20:59)
[2016-12-31] MEDS: CHOLECALCIFEROL 1,000 UNIT TAB PO SCH (22:20)
[2017-01-01 08:33] LABS: Glucose,Whole Blood 86 mg/dL (75-99)
[2017-01-01 09:42] LABS: ALT 42 U/L (9-52); AST 54 U/L (14-36); Alkaline Phosphatase 60 U/L (38-126); Anion Gap 3 mmol/L; Blood Urea Nitrogen 7 mg/dL (7-17); Calcium 7.5 mg/dL (8.4-10.2); Carbon Dioxide 22 mmol/L (22-30); Chloride 112 mmol/L (98-107); Glucose 78 mg/dL (74-99); Non-African American GFR(MDRD) >60 (>60 ml/min/1.73 sqM); Potassium 3.3 mmol/L (3.5-5.1); Sodium 137 mmol/L (137-145); Total Bilirubin 0.8 mg/dL (0.2-1.3); Total Protein 4.1 g/dL (6.3-8.2)
[2017-01-01 09:45] LABS: Anisocytosis Slight; Basophils % (A) 1 %; CH 31.3; CHCM 33.6; Eosinophils # (A) 0.2 k/uL (0-0.7); Eosinophils % (A) 4 %; HCT 23.9 % (34.0-46.0); HDW 3.81; HGB 7.9 gm/dL (11.4-16.0); Luc # (Auto) 0.08; Luc % (Auto) 2; Lymphocytes # (A) 1.4 k/uL (1.0-4.8); Lymphocytes % (A) 33 %; MCH 31.3 pg (25.0-35.0); MCHC 33.2 g/dL (31.0-37.0); MCV 94.4 fL (80.0-100.0); Macrocytosis Slight; Mean Platelet Volume 8.2; Monocytes # (A) 0.3 k/uL (0-1.0); Monocytes % (A) 7 %; Neutrophils # (A) 2.2 k/uL (1.3-7.7); Neutrophils % (A) 54 %; Poikilocytosis Slight; RBC 2.54 m/uL (3.80-5.40); RDW 18.9 % (11.5-15.5); WBC 4.2 k/uL (3.8-10.6); WBC (Perox) 4.16
--- NOTE | 2017-01-01 10:03 | P.PN ---
Subjective Patient is seen in follow-up for acute kidney injury. Renal injury resolved with creatinine at 0.61. Currently resting in bed. No vomiting or diarrhea. Oral intake is poor. Has a Jewell catheter (reinserted due to urinary retention ) in place and is nonoliguric. Patient doesn't respond much to verbal commands. No changes overnight. Vital signs are stable. General: The patient appeared well nourished and normally developed. HEENT: Head exam is unremarkable. Neck is without jugular venous distension. LUNGS: Lungs are clear to auscultation and percussion. Breath sounds decreased. HEART: Rate and Rhythm are regular. First and second heart sounds normal. No murmurs, rubs or gallops. ABDOMEN: Abdominal exam reveals normal bowel sounds. Non-tender and non- distended. No evidence of peritonitis. EXTREMITITES: Trace edema. Objective - Vital Signs Vital signs: Vital Signs Temp 96.6 F L 01/01/17 07:00 Pulse 69 01/01/17 07:00 Resp 19 01/01/17 07:00 BP 108/53 01/01/17 07:00 Pulse Ox 98 01/01/17 07:00 Intake & Output 12/31/16 01/01/17 01/01/17 18:59 06:59 18:59 Intake Total 20 Output Total 325 200 Balance -305 -200 Intake: Oral 20 Output: Urine 325 200 Other: Voiding Method Indwelling Catheter Indwelling Catheter # Voids 1 # Bowel Movements 1 - Labs CBC & Chem 7: 01/01/17 08:27 01/01/17 08:27 Labs: Abnormal Lab Results - Last 24 Hours (Table) 12/30/16 12/31/16 01/01/17 Range/Units 11:18 08:36 08:27 RBC 2.54 L (3.80-5.40) m/uL Hgb 7.9 L (11.4-16.0) gm/dL Hct 23.9 L (34.0-46.0) % RDW 18.9 H (11.5-15.5) % Potassium (3.5-5.1) mmol/L Chloride 113 H (98-107) mmol/L Carbon Dioxide 20 L (22-30) mmol/L BUN 5 L (7-17) mg/dL Glucose 73 L (74-99) mg/dL Calcium 7.2 L (8.4-10.2) mg/dL AST (14-36) U/L Total Protein 4.0 L (6.3-8.2) g/dL Albumin 1.6 L (3.5-5.0) g/dL U Random Total Protein 37 H (<12) mg/dL 01/01/17 Range/Units 08:27 RBC (3.80-5.40) m/uL Hgb (11.4-16.0) gm/dL Hct (34.0-46.0) % RDW (11.5-15.5) % Potassium 3.3 L (3.5-5.1) mmol/L Chloride 112 H (98-107) mmol/L Carbon Dioxide (22-30) mmol/L BUN (7-17) mg/dL Glucose (74-99) mg/dL Calcium 7.5 L (8.4-10.2) mg/dL AST 54 H (14-36) U/L Total Protein 4.1 L (6.3-8.2) g/dL Albumin 1.6 L (3.5-5.0) g/dL U Random Total Protein (<12) mg/dL Assessment and Plan Plan: Assessment: #1. Nonoliguric acute kidney injury mostly prerenal in nature secondary to poor oral intake and vomiting. Resolved. Creatinine was 3.5 on admission and down to 0.61. #2. Hyperchloremic metabolic acidosis secondary to IV fluids. Improved. #3. Recent urinary tract infection with urine culture positive for enterococcus status post antibiotics. #4. Anemia. Iron replete. #5. Hypokalemia due to poor nutritional status and diuresis. Magnesium replete. Plan: Encourage oral intake. Replace potassium. 40 mEq today. Avoid nephrotoxic agents and hypotensive episodes. Maintain Jewell catheter for now. Consider urology evaluation due to persistent urinary retention. Pt refusing PEG tube placement.
[2017-01-01] MEDS: ESCITALOPRAM 10 MG TAB PO SCH (10:10)
[2017-01-01] MEDS: AMIODARONE 100 MG TAB PO SCH (10:11)
[2017-01-01] MEDS: METOPROLOL SUCCINATE (ER) 50 MG TAB.ER.24H PO SCH (10:11)
[2017-01-01] MEDS: SENNOSIDES-DOCUSATE SODIUM 1 EACH TAB PO SCH ×2 (10:11→21:22)
[2017-01-01] MEDS: PANTOPRAZOLE 40 MG TABLET PO SCH (10:11)
[2017-01-01] MEDS: SPIRONOLACTONE 25 MG TAB PO SCH (10:11)
[2017-01-01] MEDS: ALPRAZolam 0.25 MG TAB PO SCH ×2 (10:39→21:22)
[2017-01-01 10:45] LABS: Manual Review Performed
[2017-01-01] MEDS: POTASSIUM CHLORIDE 20 MEQ, LIDOCAINE 2% INJ 20 MG in SODIUM CHLORIDE 0.9% 100 ML IVPB SCH ×4 (11:07→21:18)
[2017-01-01 12:11] LABS: Glucose,Whole Blood 78 mg/dL (75-99)
--- NOTE | 2017-01-01 13:37 | IR ---
EXAMINATION TYPE: IR cvc insert >=5 years DATE OF EXAM: 01/01/2017 10:39 AM COMPARISON: NONE CLINICAL HISTORY: Infection Needs long-term intravenous access for antibiotics. PROCEDURE: After informed consent, the skin overlying the upper extremity vein was localized with ultrasound and noted to be compressible and patent. An ultrasound image was obtained and submitted on the patient' s chart. The overlying skin was prepped and draped and Lidocaine was used for local anesthesia. A s kin maicol was made with a scalpel. Access was gained to the vein under ultrasound guidance with a 21 gauge needle and a 0.018 inch wire was advanced. Access site was dilated with Peel-Away sheath and c atheter tailored to the appropriate length and advanced such that the distal tip is at the cavoatrial junction. Spot image was obtained verifying placement. Catheter was fixed to the skin with suture and a sterile dressing was placed following hemostasis. Catheter was aspirated and flushed with sali ne. Patient was discharged in stable condition without complication. Maximal barrier technique is ut ilized. Ultrasound image is documented on the chart. Ultrasound used with sterile technique. Fluoro time and fluoroscopic images submitted to document procedure: 24 intraoperative C-arm images, 0.3 minutes fluoroscopy time IMPRESSION: STATUS POST ULTRASOUND AND FLUOROSCOPIC GUIDED PICC LINE PLACEMENT, READY FOR USE. THIS PROCEDURE WAS PERFORMED BY THE UNDERSIGNED.
[2017-01-01] MEDS: FERROUS SULFATE 325 MG TAB PO SCH (14:12)
[2017-01-01] MEDS: CYANOCOBALAMIN 500 MCG TAB PO SCH (14:12)
--- NOTE | 2017-01-01 15:09 | P.PN ---
Subjective 76-year-old female was hospitalized in to to 11/25/2016 for acute blood loss anemia with hemoglobin of 5.0 with intractable nausea with no vomiting she had recent hemicolectomy at [facility] she was hospitalized had blood transfusion her hemoglobin was stabilized and ended up going back to [facility] on the [place] which she seen Dr. Quintanilla a regular basis. Earlier last year in September patient was transferred to [facility] for severe abdominal pain and severe anemia and end up going for exploratory laparotomy with SVR for ischemic bowel on 09/29/2016 and return to the OR for closure Handswen anastomosis 2 at [facility] on 09/30/2016. She had 2 different occasions in October when she presented to [facility] complaining of nausea and vomiting along with no bowel movement for several day she ended up going for EGD on November 27 was negative and colonoscopy was scheduled as an outpatient hemoglobin was pain above 7 did not require any further transfusion and did well going back to [facility] on the [place] her anticoagulation was resumed was doing better with it. Patient presented to [facility] in 12/14/2016 with change mental status worsening confusion dehydration significantly elevated creatinine BUN with stage III chronic kidney disease along with acute kidney injury possible ATN. Patient found to have UTI as well was started on IV antibiotics with Levaquin hydration and admitted to the hospital. Surprisingly continue complain of worsening abdominal pain along with worsening lower back pain and right sided hip pain with no recent injury. 12/16: Patient is continued on IV fluids at 100 mL per hour. Repeat BUN is 24 1.77. Patient's nausea is better but continues and scopolamine patch ordered. Patient has had very little urine output and Jewell catheter has been ordered. 12/17: Patient status appears to be much improved but she does continue to have concerns about nausea. Consult is in place with GI. Nephrology is following for acute kidney injury and continued on IV fluids at 100 mL per hour. She is continued on Zyvox for VRE urinary tract infection. Anticipate discharge back to half-way on Sunday or Sunday. 12/18: Patient has been seen by Dr. Gonzalez with possibility of central etiology for her nausea especially with her positional symptoms and visual field issues. Dr. Negro has cleared for discharge. Repeat BUN 13 and creatinine 1.07. patient's daughter is concerned about her change in overall health and mental status since September when all her illnesses started. Patient appears to be somewhat paranoid today. Marinol decreased to 2.5 mg twice daily. 12/19: Patient has been seen by neurology. MRI showed mild diffuse age-related cerebral atrophy and moderate chronic small vessel ischemic change. Persistent right-sided paranasal sinus disease possibly acute sinusitis. Electrolytes are improved from yesterday. Attempted to determine when Marinol was started. It appears that was started at [facility] on her last hospitalization in November. Patient is able to state the city, month and year. 12/20: patient's mental status is slightly improved today. She is complaining of feeling that things are getting stuck in her esophagus. She was evaluated by speech therapy. GI has signed off but spoke with Dr. Guzman and she will reevaluate. Esophagram was ordered. IV fluids changed to saline lock and Lasix 1 ordered. 12/21: Patient has been seen by Dr. Julien Guzman. Esophagram was negative with no plan for any intervention at this time. Plan to encourage oral intake, dietitian consult for protein supplement BUN 10 and creatinine 0.96. Nephrology is following. Hemoglobin is stable at 8.8. Anticipate discharge back to [facility] tomorrow. 12/22: patient continues to have gangrenous in his food is put in her mouth. She states she has not had a bowel movement for greater than 1 week. Dulcolax suppository added. Marinol decreased to 2.5 mg daily. 12/25: Over the weekend, family was requesting information about PEG tube placement deferred to GI service as patient continued to have retching and unable to take in food. Patient refused PEG. Patient complains that she can not taste normal. Consult with Dr. Garcia if amiodarone could be causing/contribution to dysgeusia. Zyvox has been discontinued by Dr. Martinez. 12/26: patient continues to have significant retching. Hemoglobin is at 7.3. Consults added for psychiatry for psychiatric reasons for retching as well as patient has stated to her nurse to tell her family to let her . Consult added with Dr. Rondon to rule out paraneoplastic syndrome. Ultrasound of the abdomen right upper quadrant ordered. 12/27: Right upper quadrant ultrasound was negative. Patient has been seen by Dr. Lopez. Echocardiogram is pending. TSH. He does not feel swallowing difficulty is due to amiodarone. H. pylori ordered. Dr. Gonzalez he is scheduled patient for EGD on December 28. This is on hold. HIDA scan has been ordered. Patient is more confused today. 12/28: Patient has been seen by oncology with plan for tumor markers. [place] 2729 is normal at 25.8 and CA 153 is 20.1 within normal limits. She has been seen by psychiatry the patient was unable to participate. CAT scan of the chest was negative for pulmonary embolism. There are pleural effusions and cardiomegaly could be related to congestive heart failure. Pleural fluid is new compared to recent CAT scan on 12/15/2016. Any cardiology, echo reports have been requested from [facility]. 12/29:patient underwent HIDA scan that showed 20% EF. potassium of 3.1 will be replaced IV, hemoglobin 7.0 for which one unit of packed RBCs ordered. Patient has no IV access for this and PICC line has been ordered. 12/30: Patient is very drowsy, opens her eyes in response to verbal, however she is not participating or eating much. 12/31: Patient is more awake today, she still not eating much, discussed the case with , and the patient was diagnosed with potassium wasting without any evidence of any multiple myeloma, already sarcoidosis or mixed connective tissue disorder. Her potassium is much better today at 3.3, we'll discontinue potassium replacement and continue with spironolactone for now. We will order venous Doppler of both upper extremities because of increased swelling and a PIC line in the right upper extremity. 01/01: Patient continues to have very poor oral intake. Plan to encourage lunch and other meals today. Possible discharge back to [facility] tomorrow. Surgery is not planning any intervention. hemoglobin 7.9. Potassium 3.3 and will be replaced. Objective - Vital Signs Vital signs: Vital Signs Temp 96.6 F L 01/01/17 07:00 Pulse 69 01/01/17 07:00 Resp 19 01/01/17 08:00 BP 108/53 01/01/17 07:00 Pulse Ox 98 01/01/17 07:00 Intake & Output 12/31/16 01/01/17 01/01/17 18:59 06:59 18:59 Intake Total 20 Output Total 325 200 Balance -305 -200 Weight 80 kg Intake: Oral 20 Output: Urine 325 200 Other: Voiding Method Indwelling Catheter Indwelling Catheter Indwelling Catheter # Voids 1 # Bowel Movements 1 - Exam General appearance: no average body habitus, cooperative, no disheveled, mild distress, no morbidly obese, no no acute distress, no obese, no severe distress , thin - EENT Eyes: no abnormal pupil, no anicteric sclerae, no disc margins sharp, no edentulous, no EOMI, no PERRLA, no fundus normal, no photophobia, no dentition normal, no poor dentition, no ptosis, no scleral icterus, normal appearance ENT: no hard of hearing, no hearing grossly normal, no NA/AT, normal oropharynx , no other, no pharyngeal erythema, no thrush, no tonsillar exudates, no tonsillar swelling Ears: bilateral: normal, bulging - Neck Neck: no lymphadenopathy, normal ROM, no other, no rigidity, no stridor, no thyromegaly Carotids: bilateral: upstroke normal, upstroke delayed Thyroid: bilateral: normal size - Respiratory Respiratory: bilateral: diminished, dullness, rales, rhonchi, wheezing - Cardiovascular Rhythm: regular Heart sounds: normal: S1, S2 Abnormal Heart Sounds: systolic murmur, S3 Gallop - Gastrointestinal Scar tissue from recent surgery and the midline with no sign of infection but had large keloid and area of old hematoma on it. General gastrointestinal: no absent bowel sounds, decreased bowel sounds, distended, no hepatomegaly, no hyperactive bowel sounds, normal bowel sounds, no organomegaly, no rigid, scaphoid, soft, no splenomegaly, tenderness, no umbilical hernia, no ventral hernia - Integumentary Integumentary: no calor, cellulitis, no cyanotic, no decreased turgor, no flushed, no jaundiced, no normal, no normal turgor, pale, rash, no ulcer - Neurologic Neurologic: CNII-XII intact - Musculoskeletal Musculoskeletal: gait normal, generalized weakness, strength equal bilaterally - Psychiatric Psychiatric: A&O x's 3, no appropriate affect, no intact judgment & insight - Labs CBC & Chem 7: 01/01/17 08:27 01/01/17 08:27 Labs: Abnormal Lab Results - Last 24 Hours (Table) 03/01/01/17 01/01/17 Range/Units 11:18 08:27 08:27 RBC 2.54 L (3.80-5.40) m/uL Hgb 7.9 L (11.4-16.0) gm/dL Hct 23.9 L (34.0-46.0) % RDW 18.9 H (11.5-15.5) % Potassium 3.3 L (3.5-5.1) mmol/L Chloride 112 H (98-107) mmol/L Calcium 7.5 L (8.4-10.2) mg/dL AST 54 H (14-36) U/L Total Protein 4.1 L (6.3-8.2) g/dL Albumin 1.6 L (3.5-5.0) g/dL U Random Total Protein 37 H (<12) mg/dL Assessment and Plan Plan: 1 metabolic encephalopathy secondary to infection, anemia, lower back pain, side effect medication along with UTI. Treat underlying disease. MRI as above. 2 sepsis with VRE UTI: With patient's current condition patient will be on IV antibiotics continue hydration watch symptoms closely repeat UA and wait for culture, with the any unusual infections specially with the resistant bacteria in the past will have patient seen infectious disease. 3 acute kidney injury most likely ATN with chronic kidney disease: Continue hydration repeat BUN/creatinine daily for the next few days. 4 recurrent abdominal pain with no significant abnormalities on CAT scan. 5 right-sided hip pain with no clear evidence of trauma recently with x-ray showing osteoarthrosis 6 recurrent anemia with blood transfusion different occasion last few weeks hemoglobin has been stable at this point continue to watch for any further recurrent bleed. transfuse 1 unit of packed RBCs. 7 chronic edema: Has been on diuretics doing well. 8 A. fib with RVR with history of paroxysmal atrial fibrillation: Patient has been on Eliquis 5 mg twice a day along with metoprolol 100 mg daily and amiodarone 200 mg a day pulse rates under control currently. 9 hyperlipidemia: Has been on Lipitor. 10 lower back pain with worsening symptom will continue patient on smaller dose of hydrocodone or tramadol along with mild muscle relaxer. 11 recent history of hemicolectomy with complication: Patient still been watch by surgery. No obstruction this time. 12. metabolic acidosis. 13.dysphagia with lack of appetite and dysgeusia. Esophagram normal. Dr. Guzman no need for intervention. Possibly due to constipation. Dulcolax suppository ordered. psychiatry consult, oncology consult for rule out paraneoplastic syndrome, cardiology consult rule out amiodarone as possible cause. EGD scheduled for with Dr. Gonzalez. 14. Severe hypokalemia status post replacement. CODE STATUS: Full code. Discharge plan: Return to [facility] Impression and plan of care have been directed as dictated by the signing physician. Mayi Lindsay nurse practitioner acting as scribe for signing physician. Time with Patient: Greater than 30
[2017-01-01] MEDS: D5-0.45% NACL WITH KCL 20MEQ/L 1,000 ML IV SCH (15:20)
[2017-01-01 16:33] LABS: Glucose,Whole Blood 86 mg/dL (75-99)
--- NOTE | 2017-01-01 19:36 | P.PN ---
Subjective Principal diagnosis: Altered mental status Patient is seen today in follow-up with her family members at the bedside. Patient has not vomited for 3 days now, she is still feeling very weak, her appetite is very poor. She denies any fevers, shortness of breath or cough, no current complaints of dysuria but she does have the Jewell catheter inserted. Objective - Vital Signs Vital signs: Vital Signs Temp 97.3 F L 01/01/17 15:00 Pulse 75 01/01/17 15:00 Resp 18 01/01/17 15:00 BP 120/56 01/01/17 15:00 Pulse Ox 98 01/01/17 15:00 Intake & Output 01/01/17 01/01/17 01/02/17 06:59 18:59 06:59 Intake Total 630 Output Total 200 Balance -200 630 Weight 80 kg Intake: Intake, IV Titration 380 Amount D5-0.45% NaCl with KCl 180 20Meq/l 1,000 ml @ 20 mls /hr IV .Q24H AZEEM Rx#: [id number] Potassium Chloride 20 meq 200 Lidocaine 2% Inj 20 mg In Sodium Chloride 0.9% 100 ml @ 55.5 mls/hr IVPB Q2HR AZEEM Rx#:[id number] Oral 250 Output: Urine 200 Other: Voiding Method Indwelling Catheter Indwelling Catheter # Voids 1 - Exam Well-developed, adequately nourished, female sitting up in bed, she is alert and oriented 4 today. She is in no visible distress, respirations are even and unlabored - Labs CBC & Chem 7: 01/01/17 08:27 01/01/17 08:27 Labs: Abnormal Lab Results - Last 24 Hours (Table) 01/01/17 01/01/17 Range/Units 08:27 08:27 RBC 2.54 L (3.80-5.40) m/uL Hgb 7.9 L (11.4-16.0) gm/dL Hct 23.9 L (34.0-46.0) % RDW 18.9 H (11.5-15.5) % Potassium 3.3 L (3.5-5.1) mmol/L Chloride 112 H (98-107) mmol/L Calcium 7.5 L (8.4-10.2) mg/dL AST 54 H (14-36) U/L Total Protein 4.1 L (6.3-8.2) g/dL Albumin 1.6 L (3.5-5.0) g/dL Assessment and Plan (1) Breast cancer Narrative/Plan: Tumor markers were reviewed with no significant or suspicious elevation or change, stomach biopsy results were negative for any malignant findings. Current workup so far had does not suggest a paraneoplastic syndrome but we will continue to follow along with studies and results as they become available , no further recommendations from an oncology standpoint at this time. Status: Chronic Plan: Did recommend to patient soft diet due to her lack of appetite as well as a long period of vomiting and poor oral intake. Did discuss this with nursing.
--- NOTE | 2017-01-01 20:31 | P.PN ---
Subjective Patient now presents from [facility] to [facility] emergency center by EMS for dehydration and elevated creatinine. CAT scan of the brain showed cerebral atrophy with right-sided maxillary and ethmoid sinusitis and no change compared to prior. Chest x-ray shows no acute cardiopulmonary disease. On recent blood draw her BUN was 35 and creatinine 3.10 and repeat here is 39 and 3.50. Patient is complaining of pain all over especially in the back and the hips right more so than left. Apparently she has had falls at [facility]. Blood pressure was low with a heart rate of 47. Apparently patient has not been eating and drinking and had worsening confusion. Patient does complain of nausea without vomiting and complains of dizziness with movement. White count 6.7, hemoglobin 9.7. BUN 39 and creatinine 3.5. Urinalysis was turbid, blood trace, leukoesterase large, WBC 75, WBC clumps many, bacteria many. Urine drug screen was positive for marijuana and patient is on Marinol. Patient was started on Levaquin and admitted to the [facility] floor. Antibiotic was subsequently changed to Zyvox as her last urine culture done on November 24 was enterococcus gallinarum, multidrug resistant. Right hip x-ray was done that showed osteoarthrosis with no acute abnormality. CAT scan of the abdomen and pelvis without contrast has been done and report is pending. Patient has been seen by Dr. Penaloza for non-oliguric acute kidney injury. the nausea and retching are further improved. Still not eating. Patient's family is concerned. Relates that the mother's been ill since September with similar symptoms. Upper GI without obstruction with a history of stricture. Echo has been performed. There is abnormality into the stomach and biopsies have been obtained. Objective - Vital Signs Vital signs: Vital Signs Temp 97.3 F L 01/01/17 15:00 Pulse 75 01/01/17 15:00 Resp 18 01/01/17 15:00 BP 120/56 01/01/17 15:00 Pulse Ox 98 01/01/17 15:00 Intake & Output 01/01/17 01/01/17 01/02/17 06:59 18:59 06:59 Intake Total 630 Output Total 200 Balance -200 630 Weight 80 kg Intake: Intake, IV Titration 380 Amount D5-0.45% NaCl with KCl 180 20Meq/l 1,000 ml @ 20 mls /hr IV .Q24H [facility] Rx#: [id number] Potassium Chloride 20 meq 200 Lidocaine 2% Inj 20 mg In Sodium Chloride 0.9% 100 ml @ 55.5 mls/hr IVPB Q2HR [facility] Rx#:[id number] Oral 250 Output: Urine 200 Other: Voiding Method Indwelling Catheter Indwelling Catheter # Voids 1 - Exam en: This is a 76-year-old female. HEENT: Head is atraumatic, normocephalic. Pupils equal, round. Sclerae is anicteric. NECK: Supple. No JVD. No lymphadenopathy. No thyromegaly. LUNGS: Clear to auscultation. No wheezes or rhonchi. No intercostal retractions. HEART: Regular rate and rhythm. No murmur. ABDOMEN: Soft. Bowel sounds are present. No masses. Generalized tenderness. EXTREMITIES: Positive bilateral pedal edema. No calf tenderness. NEUROLOGICAL: Patient is awake, alert and oriented x2 much brighter this evening - Labs CBC & Chem 7: 01/01/17 08:27 01/01/17 08:27 Labs: Abnormal Lab Results - Last 24 Hours (Table) 01/01/17 01/01/17 Range/Units 08:27 08:27 RBC 2.54 L (3.80-5.40) m/uL Hgb 7.9 L (11.4-16.0) gm/dL Hct 23.9 L (34.0-46.0) % RDW 18.9 H (11.5-15.5) % Potassium 3.3 L (3.5-5.1) mmol/L Chloride 112 H (98-107) mmol/L Calcium 7.5 L (8.4-10.2) mg/dL AST 54 H (14-36) U/L Total Protein 4.1 L (6.3-8.2) g/dL Albumin 1.6 L (3.5-5.0) g/dL Laboratory Results WBC 4.2 k/uL (3.8-10.6) 01/01/17 08:27 RBC 2.54 m/uL (3.80-5.40) L 01/01/17 08:27 Hgb 7.9 gm/dL (11.4-16.0) L 01/01/17 08:27 Hct 23.9 % (34.0-46.0) L 01/01/17 08:27 MCV 94.4 fL (80.0-100.0) 01/01/17 08:27 MCH 31.3 pg (25.0-35.0) 01/01/17 08: MCHC 33.2 g/dL (31.0-37.0) 01/01/17 08: RDW 18.9 % (11.5-15.5) H 01/01/17 08:27 Plt Count 178 k/uL (150-450) 01/01/17 08:27 Neutrophils % 54 % 01/01/17 08:27 Lymphocytes % 33 % 01/01/17 08:27 Monocytes % 7 % 01/01/17 08:27 Eosinophils % 4 % 01/01/17 08:27 Basophils % 1 % 01/01/17 08:27 Neutrophils # 2.2 k/uL (1.3-7.7) 01/01/17 08:27 Lymphocytes # 1.4 k/uL (1.0-4.8) 01/01/17 08:27 Monocytes # 0.3 k/uL (0-1.0) 01/01/17 08:27 Eosinophils # 0.2 k/uL (0-0.7) 01/01/17 08: Basophils # 0.0 k/uL (0-0.2) 01/01/17 08:27 Manual Slide Review Performed 01/01/17 08:27 Hypochromasia Slight 12/31/16 08:36 Poikilocytosis Slight 01/01/17 08:27 Anisocytosis Slight 01/01/17 08:27 Macrocytosis Slight 01/01/17 08:27 PT 15.3 sec (9.0-12.0) H 12/14/16 20:54 INR 1.6 (<1.1) 12/14/16 20:54 APTT 28.0 sec (22.0-30.0) 12/14/16 20:54 Sodium 137 mmol/L (137-145) 01/01/17 08:27 Potassium 3.3 mmol/L (3.5-5.1) L 01/01/17 08:27 Chloride 112 mmol/L (98-107) H 01/01/17 08:27 Carbon Dioxide 22 mmol/L (22-30) 01/01/17 08:27 Anion Gap 3 mmol/L 01/01/17 08:27 BUN 7 mg/dL (7-17) 01/01/17 08:27 Creatinine 0.61 mg/dL (0.52-1.04) 01/01/17 08:27 Est GFR (MDRD) Af Amer >60 (>60 ml/min/1.73 sqM) 01/01/17 08:27 Est GFR (MDRD) Non-Af >60 (>60 ml/min/1.73 sqM) 01/01/17 08:27 Glucose 78 mg/dL (74-99) 01/01/17 08:27 POC Glucose (mg/dL) 86 mg/dL (75-99) 01/01/17 16:31 POC Glu Food Service Manager ID Cheri Hamilton 01/01/17 16:31 Plasma Lactic Acid Deion 1.9 mmol/L (0.7-2.0) 12/14/16 20:54 Calcium 7.5 mg/dL (8.4-10.2) L 01/01/17 08:27 Phosphorus 2.9 mg/dL (2.5-4.5) 12/29/16 09:04 Magnesium 1.8 mg/dL (1.6-2.3) 12/31/16 08:36 Iron 33 ug/dL (37-170) L 12/14/16 20:54 TIBC 155 ug/dL (265-497) L 12/14/16 20:54 % Saturation 21.3 % (20-50) 12/14/16 20:54 Ferritin 298 ng/mL (11-264) H 12/14/16 20:54 Total Bilirubin 0.8 mg/dL (0.2-1.3) 01/01/17 08:27 AST 54 U/L (14-36) H 01/01/17 08:27 ALT 42 U/L (9-52) 01/01/17 08:27 Alkaline Phosphatase 60 U/L (38-126) 01/01/17 08:27 Total Creatine Kinase 76 U/L (30-135) 12/14/16 20:54 CK-MB (CK-2) 0.6 ng/mL (0.0-2.4) 12/14/16 20:54 CK-MB (CK-2) Rel Index 0.8 12/14/16 20:54 Troponin I 0.022 ng/mL (0.000-0.034) 12/14/16 20:54 Total Protein 4.1 g/dL (6.3-8.2) L 01/01/17 08:27 Albumin 1.6 g/dL (3.5-5.0) L 01/01/17 08:27 Lipase 70 U/L (23-300) 12/26/16 07:52 CA 15-3 Antigen 20.1 U/mL (<35.1) 12/26/16 07:52 CA 27-29 25.8 U/mL (0.0-38.5) 12/25/16 08:36 TSH 0.936 mIU/L (0.465-4.680) 12/26/16 07:52 Urine Color Yellow 12/14/16 20:52 Urine Appearance Turbid (Clear) H 12/14/16 20:52 Urine pH 5.0 (5.0-8.0) 12/14/16 20:52 Ur Specific [place] 1.014 (1.001-1.035) 12/14/16 20:52 Urine Protein 1+ (Negative) H 12/14/16 20:52 Urine Glucose (UA) Negative (Negative) 12/14/16 20:52 Urine Ketones Negative (Negative) 12/14/16 20:52 Urine Blood Trace (Negative) H 12/14/16 20:52 Urine Nitrate Negative (Negative) 12/14/16 20:52 Urine Bilirubin 1+ (Negative) H 12/14/16 20:52 Urine Urobilinogen 2.0 mg/dL (<2.0) 12/14/16 20:52 Ur Leukocyte Esterase Large (Negative) H 12/14/16 20:52 Urine WBC 75 /hpf (0-5) H 12/14/16 20:52 Urine WBC Clumps Many /hpf (None) H 12/14/16 20:52 Ur Squamous Epith Cells 2 /hpf (0-4) 12/14/16 20:52 Urine Bacteria Many /hpf (None) H 12/14/16 20:52 Hyaline Casts 631 /lpf (0-2) H 12/14/16 20:52 Urine Osmolality 493 mosm/kg (50-1400) 12/30/16 11:18 Ur Random Creatinine 105.2 mg/dL 12/30/16 11:18 U Random Total Protein 37 mg/dL (<12) H 12/30/16 11:18 Ur Random Sodium 133 mmol/L (30-90) H 12/30/16 11:18 Ur Random Potassium 38.9 mmol/L 12/30/16 11:18 Urine Opiates Screen Not Detected (NotDetected) 12/14/16 20:52 Ur Oxycodone Screen Not Detected (NotDetected) 12/14/16 20:52 Urine Methadone Screen Not Detected (NotDetected) 12/14/16 20:52 Ur Propoxyphene Screen Not Detected (NotDetected) 12/14/16 20:52 Ur Barbiturates Screen Not Detected (NotDetected) 12/14/16 20:52 U Tricyclic Antidepress Not Detected (NotDetected) 12/14/16 20:52 Ur Phencyclidine Scrn Not Detected (NotDetected) 12/14/16 20:52 Ur Amphetamines Screen Not Detected (NotDetected) 12/14/16 20:52 U Methamphetamines Scrn Not Detected (NotDetected) 12/14/16 20:52 U Benzodiazepines Scrn Not Detected (NotDetected) 12/14/16 20:52 Urine Cocaine Screen Not Detected (NotDetected) 12/14/16 20:52 U Marijuana (THC) Screen Detected (NotDetected) H 12/14/16 20:52 Miscellaneous Test Urine TP, Random 12/30/16 11:18 Misc Test Result See comment 12/30/16 11:18 Blood Type O Negative 12/29/16 11:54 Blood Type Recheck No 12/29/16 11:54 Antibody Screen NEGATIVE 12/29/16 11:54 Crossmatch See Detail 12/29/16 11:54 Spec Expiration Date 01/01/2017 - 2276 12/29/16 11:54 Microbiology 12/14/16 21:06 Blood Blood Culture - Final No Growth after 144 hours 12/15/16 13:15 Urine,Catheterized Urine Culture - Final Cultures negative Pathology from the stomach is negative for malignancy. On the esophagitis was noted Assessment and Plan (1) Acute renal failure Narrative/Plan: 76-year-old woman with multiple medical troubles presents to Hospital acutely ill. Has acute renal failure showing some improvement. Urinary infection. Recent urine infection with vancomycin-resistant enterococci. Currently receiving Zyvox and being monitored. The significant somewhat better today with hydration and control of her nausea. Does have much less nausea and emesis today. She over still quite miserable. Receiving anxiolytics and some pain control. Laboratories being followed. Her nutritional supplementation when able. Patient's son was present. Relates that in September before the mother became ill. She was independent. Driving. Doing her own shopping preparing her own meals. Constantly they are quite concerned about her drastic overall decline. Has been seen by gastroenterology. Plan for EGD today to further evaluate for the refractory nausea and retching. Neurologic consult performed, work up negative so far. Marinol to be held Discontinue Zyvox negative urine cultures, no change since she's been off antibiotic therapy. There has been a mild improvement of her status since Marinol has been held. But still not doing well overall. We'll not need antibiotic therapy or discharge Will go to rehab once her nausea improved. The patient's been seen by cardiology and echocardiogram without vegetation. Also be seen by psychiatry for the possibility of a neurogenic etiology of her retching. EGD is performed. No malignancy was found Patient this evening is doing a bit better will do further amounts of soft foods and the Ensure which she seems to be tolerating. The patient seems to be aware that she needs to improve her oral intake if she decides to increase her strength to go home. Status: Acute (2) Altered mental status Status: Acute (3) Urinary tract infection Status: Acute
[2017-01-01 20:43] LABS: Glucose,Whole Blood 113 mg/dL (75-99)
[2017-01-01] MEDS: ATORVASTATIN 10 MG TAB PO SCH (21:18)
[2017-01-01] MEDS: MIRTAZAPINE 15 MG TAB PO SCH (21:19)
[2017-01-01] MEDS: CHOLECALCIFEROL 1,000 UNIT TAB PO SCH (21:19)
[2017-01-02 07:28] LABS: Glucose,Whole Blood 87 mg/dL (75-99)
[2017-01-02 08:24] VITALS: BP 131/58; PULSE 73; RESP 16; TEMP 97
[2017-01-02] MEDS: ALPRAZolam 0.25 MG TAB PO SCH (08:41)
[2017-01-02] MEDS: SPIRONOLACTONE 25 MG TAB PO SCH (08:44)
[2017-01-02] MEDS: METOPROLOL SUCCINATE (ER) 50 MG TAB.ER.24H PO SCH (08:45)
[2017-01-02] MEDS: ESCITALOPRAM 10 MG TAB PO SCH (08:45)
[2017-01-02] MEDS: PANTOPRAZOLE 40 MG TABLET PO SCH (08:45)
[2017-01-02] MEDS: AMIODARONE 100 MG TAB PO SCH (08:45)
[2017-01-02] MEDS ORDERED: DARBEPOETIN ALFA 40 MCG/0.4 ML SYRINGE SQ SCH (09:00)
[2017-01-02 09:20] LABS: Anisocytosis Slight; CH 31.1; CHCM 33.3; HCT 24.1 % (34.0-46.0); HDW 3.66; Hypochromasia Slight; MCH 31.3 pg (25.0-35.0); MCHC 33.2 g/dL (31.0-37.0); MCV 94.3 fL (80.0-100.0); Macrocytosis Slight; Mean Platelet Volume 8.2; Poikilocytosis Slight; RBC 2.56 m/uL (3.80-5.40); WBC 4.3 k/uL (3.8-10.6)
--- NOTE | 2017-01-02 09:51 | CDI ---
In responding to this query, please exercise your independent professional judgment. The [facility] Coding Staff and Clinical Documentation Specialists appreciate your assistance in clarifying documentation, maintaining compliance with coding guidelines, accurately documenting patients condition and capturing severity of illness. The fact that a question is asked does not imply that any particular answer is desired or expected. Communication forms are a method of clarifying documentation and are not made part of the Legal Health Record. Thank you in advance for your clarification. Last Revision, August 2015 Natalie Padilla [address] [facility] [place] [address] Documentation Clarification Form Date: 01/02/2017 9:24:00 AM From: Nalini Pena Admit Date: 12/14/2016 9:58:00 PM Patient Name: Cat Overton Visit Number: [id number] Discharge Date: Dr. Caleb Gordon/Mayi Lindsay [facility] Decrease intake, poor appetite is in the progress notes. History/Risk Factors: Bowel resection, Breast Cancer, hypertension, Clinical Indicators: decreased appetite, anorexia with nausea and vomiting, refusing meals, refusing PEG tube. She has fatigue and lethargy. Labs: Albumin admission: 2.7 01/02/17: 1.6, Total Protein on admission 5.8, 01/02: 4.1 Current BMI: 29.3 Insufficient energy intake: inadequate oral intake Weight Loss: Yes, amount not noted Treatment: Protonix PO Orphan IV PRN EGD: antral gastritis with prominent pre-pyloric folds. Dietary Consult: Yes Lab monitoring: Monitor I/O In your professional opinion, can you please clarify if these findings signify one of the following conditions? Mild Protein Malnutrition Mild Protein-Calorie Malnutrition Moderate Protein Malnutrition Moderate Protein-Calorie Malnutrition Severe Protein Malnutrition Severe Protein-Calorie Malnutrition Malnutrition following GI surgery Other condition, please specify Unable to determine Please document in your progress notes and discharge summary in order to capture severity of illness and risk of mortality. Include clinical findings that support your diagnosis. FYI: Press F11 to launch patient chart. Place X here if this finding has no clinical significance, is not applicable or if you are not able to provide any additional documentation. MTDD
[2017-01-02 10:24] LABS: ALT 49 U/L (9-52); AST 45 U/L (14-36); Alkaline Phosphatase 62 U/L (38-126); Anion Gap 5 mmol/L; Blood Urea Nitrogen 8 mg/dL (7-17); Calcium 7.8 mg/dL (8.4-10.2); Carbon Dioxide 21 mmol/L (22-30); Chloride 116 mmol/L (98-107); Glucose 82 mg/dL (74-99); Magnesium 1.9 mg/dL (1.6-2.3); Non-African American GFR(MDRD) >60 (>60 ml/min/1.73 sqM); Phosphorous 2.8 mg/dL (2.5-4.5); Potassium 4.4 mmol/L (3.5-5.1); Sodium 142 mmol/L (137-145); Total Bilirubin 0.7 mg/dL (0.2-1.3); Total Protein 4.1 g/dL (6.3-8.2)
--- NOTE | 2017-01-02 10:36 | P.PN ---
Subjective Patient is seen in follow-up for acute kidney injury. Renal injury resolved with creatinine at 0.61. Currently resting in bed. No vomiting or diarrhea. Oral intake is poor. Has a Jewell catheter (reinserted due to urinary retention ) in place and is nonoliguric. Patient doesn't respond much to verbal commands. Denies chest pain or shortness of breath. Vital signs are stable. General: The patient appeared well nourished and normally developed. HEENT: Head exam is unremarkable. Neck is without jugular venous distension. LUNGS: Lungs are clear to auscultation and percussion. Breath sounds decreased. HEART: Rate and Rhythm are regular. First and second heart sounds normal. No murmurs, rubs or gallops. ABDOMEN: Abdominal exam reveals normal bowel sounds. Non-tender and non- distended. No evidence of peritonitis. EXTREMITITES: Trace edema. Objective - Vital Signs Vital signs: Vital Signs Temp 97.0 F L 01/02/17 07:00 Pulse 73 01/02/17 07:00 Resp 16 01/02/17 07:00 BP 131/58 01/02/17 07:00 Pulse Ox 98 01/02/17 07:00 Intake & Output 01/01/17 01/02/17 01/02/17 18:59 06:59 18:59 Intake Total 630 Output Total 350 Balance 630 -350 Weight 85 kg Intake: Intake, IV Titration 380 Amount D5-0.45% NaCl with KCl 180 20Meq/l 1,000 ml @ 20 mls /hr IV .Q24H [facility] Rx#: [id number] Potassium Chloride 20 meq 200 Lidocaine 2% Inj 20 mg In Sodium Chloride 0.9% 100 ml @ 55.5 mls/hr IVPB Q2HR [facility] Rx#:[id number] Oral 250 Output: Urine 350 Other: Voiding Method Indwelling Catheter Indwelling Catheter Indwelling Catheter - Labs CBC & Chem 7: 01/02/17 08:33 01/02/17 08:33 Labs: Abnormal Lab Results - Last 24 Hours (Table) 01/01/17 01/01/17 01/02/17 Range/Units 08:27 20:42 00:54 RBC 2.54 L (3.80-5.40) m/uL Hgb 7.9 L (11.4-16.0) gm/dL Hct 23.9 L (34.0-46.0) % RDW 18.9 H (11.5-15.5) % Potassium 6.0 H (3.5-5.1) mmol/L Chloride (98-107) mmol/L Carbon Dioxide (22-30) mmol/L POC Glucose (mg/dL) 113 H (75-99) mg/dL Calcium (8.4-10.2) mg/dL AST (14-36) U/L Total Protein (6.3-8.2) g/dL Albumin (3.5-5.0) g/dL 01/02/17 01/02/17 Range/Units 08:33 08:33 RBC 2.56 L (3.80-5.40) m/uL Hgb 8.0 L (11.4-16.0) gm/dL Hct 24.1 L (34.0-46.0) % RDW 19.0 H (11.5-15.5) % Potassium (3.5-5.1) mmol/L Chloride 116 H (98-107) mmol/L Carbon Dioxide 21 L (22-30) mmol/L POC Glucose (mg/dL) (75-99) mg/dL Calcium 7.8 L (8.4-10.2) mg/dL AST 45 H (14-36) U/L Total Protein 4.1 L (6.3-8.2) g/dL Albumin 1.6 L (3.5-5.0) g/dL Assessment and Plan Plan: Assessment: #1. Nonoliguric acute kidney injury mostly prerenal in nature secondary to poor oral intake and vomiting. Resolved. Creatinine was 3.5 on admission and down to 0.6. #2. Hyperchloremic metabolic acidosis secondary to IV fluids. Improved. #3. Recent urinary tract infection with urine culture positive for enterococcus status post antibiotics. #4. Anemia. Iron replete. #5. Hypokalemia due to poor nutritional status and diuresis. Magnesium replete. Resolved. #6. Protein calorie malnutrition. Plan: Encourage oral intake. Discontinue Aldactone. Avoid nephrotoxic agents and hypotensive episodes. Maintain Jewell catheter for now. Consider urology evaluation due to persistent urinary retention. Pt refusing PEG tube placement. Potential discharge to ECF.
[2017-01-02] MEDS: SENNOSIDES-DOCUSATE SODIUM 1 EACH TAB PO SCH (10:37)
[2017-01-02 11:29] LABS: Glucose,Whole Blood 100 mg/dL (75-99)
[2017-01-02] MEDS: FERROUS SULFATE 325 MG TAB PO SCH (12:20)
[2017-01-02] MEDS: CYANOCOBALAMIN 500 MCG TAB PO SCH (12:20)
--- NOTE | 2017-01-02 12:21 | P.DS ---
Providers Date of admission: 12/14/16 21:58 Expected date of discharge: 01/02/17 Attending physician: Caleb Gordon Consults: 12/14/16 22:47 Consult Physician Urgent Consulting Provider: Shaun Penaloza Consult Reason/Comments: Acute renal failure Do you want consulting provider notified?: Yes 12/15/16 11:47 Consult Physician Routine Consulting Provider: Caleb Martinez Consult Reason/Comments: MDR uti Do you want consulting provider notified?: Yes 12/18/16 14:55 Consult Physician Routine Consulting Provider: Xiomy Mendoza Consult Reason/Comments: significant mental decline since August Do you want consulting provider notified?: Yes 12/25/16 14:24 Consult Physician Routine Consulting Provider: Justino Garcia Consult Reason/Comments: can amiodarone b discontinued? dysgeusia Do you want consulting provider notified?: Yes 12/26/16 13:35 Consult Physician Routine Consulting Provider: Chandrakant Rondon Consult Reason/Comments: vomiting, hx breast ca, rule out paraneoplastic syn Do you want consulting provider notified?: Yes 12/28/16 07:58 Consult Physician Routine Consulting Provider: Emelyn Zamora Consult Reason/Comments: psych evaluation Do you want consulting provider notified?: Already Contacted 12/29/16 12:05 Consult Physician Routine Consulting Provider: Coleen Ellsworth Consult Reason/Comments: biliary dyskinesia Do you want consulting provider notified?: Yes Primary care physician: Luisana Quintanilla [facility] Course: 76-year-old female was hospitalized in to to 11/25/2016 for acute blood loss anemia with hemoglobin of 5.0 with intractable nausea with no vomiting she had recent hemicolectomy at [facility] she was hospitalized had blood transfusion her hemoglobin was stabilized and ended up going back to [facility] on the [place] which she seen Dr. Quintanilla a regular basis. Earlier last year in September patient was transferred to [facility] for severe abdominal pain and severe anemia and end up going for exploratory laparotomy with SVR for ischemic bowel on 09/29/2016 and return to the OR for closure Handswen anastomosis 2 at [facility] on 09/30/2016. She had 2 different occasions in October when she presented to [facility] complaining of nausea and vomiting along with no bowel movement for several day she ended up going for EGD on November 27 was negative and colonoscopy was scheduled as an outpatient hemoglobin was pain above 7 did not require any further transfusion and did well going back to [facility] on the [place] her anticoagulation was resumed was doing better with it. Patient presented to [facility] in 12/14/2016 with change mental status worsening confusion dehydration significantly elevated creatinine BUN with stage III chronic kidney disease along with acute kidney injury possible ATN. Patient found to have UTI as well was started on IV antibiotics with Levaquin hydration and admitted to the hospital. Surprisingly continue complain of worsening abdominal pain along with worsening lower back pain and right sided hip pain with no recent injury. 12/16: Patient is continued on IV fluids at 100 mL per hour. Repeat BUN is 24 1.77. Patient's nausea is better but continues and scopolamine patch ordered. Patient has had very little urine output and Jewell catheter has been ordered. 12/17: Patient status appears to be much improved but she does continue to have concerns about nausea. Consult is in place with GI. Nephrology is following for acute kidney injury and continued on IV fluids at 100 mL per hour. She is continued on Zyvox for VRE urinary tract infection. Anticipate discharge back to snf on Sunday or Sunday. 12/18: Patient has been seen by Dr. Gonzalez with possibility of central etiology for her nausea especially with her positional symptoms and visual field issues. Dr. Negro has cleared for discharge. Repeat BUN 13 and creatinine 1.07. patient's daughter is concerned about her change in overall health and mental status since September when all her illnesses started. Patient appears to be somewhat paranoid today. Marinol decreased to 2.5 mg twice daily. 12/19: Patient has been seen by neurology. MRI showed mild diffuse age-related cerebral atrophy and moderate chronic small vessel ischemic change. Persistent right-sided paranasal sinus disease possibly acute sinusitis. Electrolytes are improved from yesterday. Attempted to determine when Marinol was started. It appears that was started at [facility] on her last hospitalization in November. Patient is able to state the city, month and year. 12/20: patient's mental status is slightly improved today. She is complaining of feeling that things are getting stuck in her esophagus. She was evaluated by speech therapy. GI has signed off but spoke with Dr. Guzman and she will reevaluate. Esophagram was ordered. IV fluids changed to saline lock and Lasix 1 ordered. 12/21: Patient has been seen by Dr. Julien Guzman. Esophagram was negative with no plan for any intervention at this time. Plan to encourage oral intake, dietitian consult for protein supplement BUN 10 and creatinine 0.96. Nephrology is following. Hemoglobin is stable at 8.8. Anticipate discharge back to [facility] tomorrow. 12/22: patient continues to have gangrenous in his food is put in her mouth. She states she has not had a bowel movement for greater than 1 week. Dulcolax suppository added. Marinol decreased to 2.5 mg daily. 12/25: Over the weekend, family was requesting information about PEG tube placement deferred to GI service as patient continued to have retching and unable to take in food. Patient refused PEG. Patient complains that she can not taste normal. Consult with Dr. Garcia if amiodarone could be causing/contribution to dysgeusia. Zyvox has been discontinued by Dr. Martinez. 12/26: patient continues to have significant retching. Hemoglobin is at 7.3. Consults added for psychiatry for psychiatric reasons for retching as well as patient has stated to her nurse to tell her family to let her . Consult added with Dr. Rondon to rule out paraneoplastic syndrome. Ultrasound of the abdomen right upper quadrant ordered. 12/27: Right upper quadrant ultrasound was negative. Patient has been seen by Dr. Lopez. Echocardiogram is pending. TSH. He does not feel swallowing difficulty is due to amiodarone. H. pylori ordered. Dr. Gonzalez he is scheduled patient for EGD on December 28. This is on hold. HIDA scan has been ordered. Patient is more confused today. 12/28: Patient has been seen by oncology with plan for tumor markers. [place] 2729 is normal at 25.8 and CA 153 is 20.1 within normal limits. She has been seen by psychiatry the patient was unable to participate. CAT scan of the chest was negative for pulmonary embolism. There are pleural effusions and cardiomegaly could be related to congestive heart failure. Pleural fluid is new compared to recent CAT scan on 12/15/2016. Any cardiology, echo reports have been requested from [facility]. EGD and biopsy was performed by Dr. Gonzalez finding some mottling and erythema diffusely in the prepyloric area with multiple prominent folds of uncertain clinical significance. Multiple biopsies were obtained from the area. H. pylori was negative. Esophagus biopsy shows chronic esophagitis, gastric biopsy shows chronic gastritis. 12/29:patient underwent HIDA scan that showed 20% EF. potassium of 3.1 will be replaced IV, hemoglobin 7.0 for which one unit of packed RBCs ordered. Patient has no IV access for this and PICC line has been ordered. 12/30: Patient is very drowsy, opens her eyes in response to verbal, however she is not participating or eating much. 12/31: Patient is more awake today, she still not eating much, discussed the case with , and the patient was diagnosed with potassium wasting without any evidence of any multiple myeloma, already sarcoidosis or mixed connective tissue disorder. Her potassium is much better today at 3.3, we'll discontinue potassium replacement and continue with spironolactone for now. We will order venous Doppler of both upper extremities because of increased swelling and a PIC line in the right upper extremity. 01/01: Patient continues to have very poor oral intake. Plan to encourage lunch and other meals today. Possible discharge back to [facility] tomorrow. Surgery is not planning any intervention. hemoglobin 7.9. Potassium 3.3 and will be replaced. 328: Patient denies having any nausea or vomiting today. She continues to need very little oral intake. No testing pending. Patient will be discharged back to [facility] today and stable condition.. Discharge Diagnoses: 1.refractory and intractable nausea and vomiting secondary to recurring abdominal pain with recent abdominal surgery and gastroparesis 2.metabolic encephalopathy secondary to infection, anemia, lower back pain, side effect medication along with UTI. 3. sepsis with UTI with no growth on urine culture 4. acute kidney injury most likely ATN with chronic kidney disease 3 5. recurrent abdominal pain with no significant abnormalities on CAT scan. 6. right-sided hip pain with no clear evidence of trauma recently with x-ray showing osteoarthrosis 7. recurrent anemia status post transfusion 1 unit of packed RBCs. 8. chronic edema 9. A. fib with RVR with history of paroxysmal atrial fibrillation 10. hyperlipidemia 11. lower back pain 12. recent history of hemicolectomy with complication 13. metabolic acidosis. 14.dysphagia with lack of appetite and dysgeusia. 15. Severe hypokalemia 16. urinary retention requiring Jewell 17. Severe protein calorie malnutrition Discharge plan: Return to [facility] Impression and plan of care have been directed as dictated by the signing physician. Mayi Lindsay nurse practitioner acting as scribe for signing physician. Patient Condition at Discharge: Good Plan - Discharge Summary New Discharge Prescriptions: ALPRAZolam [Xanax] 0.25 mg PO BID PRN #60 tab PRN Reason: Anxiety Mirtazapine [Remeron] 15 mg PO HS #30 tab Discharge Medication List Atorvastatin [Lipitor] 10 mg PO HS@2100 07/31/16 [History] Omeprazole 20 mg PO DAILY 07/31/16 [History] Apixaban [Eliquis] 5 mg PO BID 11/24/16 [History] Ferrous Sulfate [Feosol] 325 mg PO DAILY 11/24/16 [History] Sennosides-Docusate Sodium [Senokot-S] 1 tab PO BID 11/24/16 [History] Acetaminophen Tab [Tylenol] 650 mg PO Q4H PRN 12/14/16 [History] Cholecalciferol [Vitamin D3] 2,000 unit PO HS 12/14/16 [History] Cyanocobalamin [Vitamin B-12] 500 mcg PO DAILY 12/14/16 [History] Darbepoetin Matty [Aranesp] 40 mcg SQ Q30D 12/14/16 [History] Furosemide [Lasix] 40 mg PO MOWEFR 12/14/16 [History] Lactose-Reduced Food [Ensure Plus] 1 can PO TID BETWEEN MEALS 12/14/16 [History] Melatonin 6 mg PO HS 12/14/16 [History] Potassium Chloride [Klor-Con] 20 meq PO DAILY 12/14/16 [History] ALPRAZolam [Xanax] 0.25 mg PO BID PRN #60 tab 01/02/17 [Rx] Amiodarone [Cordarone] 100 mg PO DAILY tab 01/02/17 [Rx] Escitalopram [Lexapro] 10 mg PO DAILY #0 tab 01/02/17 [Rx] Metoprolol Succinate (ER) [Toprol XL] 50 mg PO DAILY tab.er.24h 01/02/17 [Rx] Mirtazapine [Remeron] 15 mg PO HS #30 tab 01/02/17 [Rx] Follow up Appointment(s)/Referral(s): Luisana Quintanilla MD [Primary Care Provider] - 1-2 days [facility] [place], [NON-STAFF] - 1 Week Patient Instructions/Handouts: Urinary Tract Infection in Women (DC) Activity/Diet/Wound Care/Special Instructions: Jewell on discharge Discharge Disposition: TRANSFER TO SNF/ECF
--- NOTE | 2017-01-02 14:22 | P.PN ---
Subjective PATIENT WAS SEEN FOR PSYCHIATRIC FOLLOW_UP AND I DISCUSSED HER CASE WITH HER RN: Interval history: The patient is laying in her bed ,looked tired ,no motivation ,refusing to eat even non-compliant with oral supplement ,she refused gastric tube,I tried to discuss with her how her poor intake will affect her however she replied "I AM ALRIGHT PHYSICALLY AND MENTALLY". She reports that she will be discharged today to return to rehab. Mental status exam: The patient is a disheveled female appearing stated age. She is lying awake in bed eye contact is intermittent. Speech is non spontaneous but he provides brief answers to questions asked. She is not invested in the interview process. Insight to her need to follow recomendation and to extend of her physical condition is limited .She is reporting no auditory or visual hallucinations. She is reporting no suicidal or homicidal ideation. She would not answer orientation questions today. Plan: Increase Lexapro 20 mg ,continue Remeron ,SW to discuss with family possibility pursuing guardianship Objective - Vital Signs Vital signs: Vital Signs Temp 97.0 F L 01/02/17 07:00 Pulse 73 01/02/17 07:00 Resp 16 01/02/17 07:00 BP 131/58 01/02/17 07:00 Pulse Ox 98 01/02/17 07:00 Intake & Output 01/01/17 01/02/17 01/02/17 18:59 06:59 18:59 Intake Total 630 Output Total 350 400 Balance 630 -350 -400 Weight 85 kg Intake: Intake, IV Titration 380 Amount D5-0.45% NaCl with KCl 180 20Meq/l 1,000 ml @ 20 mls /hr IV .Q24H AZEEM Rx#: [id number] Potassium Chloride 20 meq 200 Lidocaine 2% Inj 20 mg In Sodium Chloride 0.9% 100 ml @ 55.5 mls/hr IVPB Q2HR AZEEM Rx#:[id number] Oral 250 Output: Urine 350 400 Other: Voiding Method Indwelling Catheter Indwelling Catheter Indwelling Catheter # Voids 1 - Labs CBC & Chem 7: 01/02/17 08:33 01/02/17 08:33 Labs: Abnormal Lab Results - Last 24 Hours (Table) 01/01/17 01/02/17 01/02/17 Range/Units 20:42 00:54 08:33 RBC 2.56 L (3.80-5.40) m/uL Hgb 8.0 L (11.4-16.0) gm/dL Hct 24.1 L (34.0-46.0) % RDW 19.0 H (11.5-15.5) % Potassium 6.0 H (3.5-5.1) mmol/L Chloride (98-107) mmol/L Carbon Dioxide (22-30) mmol/L POC Glucose (mg/dL) 113 H (75-99) mg/dL Calcium (8.4-10.2) mg/dL AST (14-36) U/L Total Protein (6.3-8.2) g/dL Albumin (3.5-5.0) g/dL 01/02/17 01/02/17 Range/Units 08:33 11:26 RBC (3.80-5.40) m/uL Hgb (11.4-16.0) gm/dL Hct (34.0-46.0) % RDW (11.5-15.5) % Potassium (3.5-5.1) mmol/L Chloride 116 H (98-107) mmol/L Carbon Dioxide 21 L (22-30) mmol/L POC Glucose (mg/dL) 100 H (75-99) mg/dL Calcium 7.8 L (8.4-10.2) mg/dL AST 45 H (14-36) U/L Total Protein 4.1 L (6.3-8.2) g/dL Albumin 1.6 L (3.5-5.0) g/dL
[2017-01-02] MEDS: D5-0.45% NACL WITH KCL 20MEQ/L 1,000 ML IV SCH (14:24)
--- NOTE | 2017-01-02 21:51 | P.PN ---
Subjective Patient now presents from [facility] to [facility] emergency center by EMS for dehydration and elevated creatinine. CAT scan of the brain showed cerebral atrophy with right-sided maxillary and ethmoid sinusitis and no change compared to prior. Chest x-ray shows no acute cardiopulmonary disease. On recent blood draw her BUN was 35 and creatinine 3.10 and repeat here is 39 and 3.50. Patient is complaining of pain all over especially in the back and the hips right more so than left. Apparently she has had falls at [facility]. Blood pressure was low with a heart rate of 47. Apparently patient has not been eating and drinking and had worsening confusion. Patient does complain of nausea without vomiting and complains of dizziness with movement. White count 6.7, hemoglobin 9.7. BUN 39 and creatinine 3.5. Urinalysis was turbid, blood trace, leukoesterase large, WBC 75, WBC clumps many, bacteria many. Urine drug screen was positive for marijuana and patient is on Marinol. Patient was started on Levaquin and admitted to the [facility] floor. Antibiotic was subsequently changed to Zyvox as her last urine culture done on November 24 was enterococcus gallinarum, multidrug resistant. Right hip x-ray was done that showed osteoarthrosis with no acute abnormality. CAT scan of the abdomen and pelvis without contrast has been done and report is pending. Patient has been seen by Dr. Penaloza for non-oliguric acute kidney injury. the nausea and retching are further improved. Still not eating. Patient's family is concerned. Relates that the mother's been ill since September with similar symptoms. Upper GI without obstruction with a history of stricture. Echo has been performed. There is abnormality into the stomach and biopsies have been obtained. Objective - Vital Signs Vital signs: Vital Signs Temp 97.0 F L 01/02/17 07:00 Pulse 73 01/02/17 07:00 Resp 16 01/02/17 07:00 BP 131/58 01/02/17 07:00 Pulse Ox 98 01/02/17 07:00 Intake & Output 01/02/17 01/02/17 01/03/17 06:59 18:59 06:59 Intake Total 20 Output Total 350 400 Balance -350 -380 Weight 85 kg Intake: Oral 20 Output: Urine 350 400 Other: Voiding Method Indwelling Catheter Indwelling Catheter # Voids 1 - Exam en: This is a 76-year-old female. HEENT: Head is atraumatic, normocephalic. Pupils equal, round. Sclerae is anicteric. NECK: Supple. No JVD. No lymphadenopathy. No thyromegaly. LUNGS: Clear to auscultation. No wheezes or rhonchi. No intercostal retractions. HEART: Regular rate and rhythm. No murmur. ABDOMEN: Soft. Bowel sounds are present. No masses. Generalized tenderness. EXTREMITIES: Positive bilateral pedal edema. No calf tenderness. NEUROLOGICAL: Patient is awake, alert and oriented x2 much brighter than the last few days - Labs CBC & Chem 7: 01/02/17 08:33 01/02/17 08:33 Labs: Abnormal Lab Results - Last 24 Hours (Table) 01/02/17 01/02/17 01/02/17 Range/Units 00:54 08:33 08:33 RBC 2.56 L (3.80-5.40) m/uL Hgb 8.0 L (11.4-16.0) gm/dL Hct 24.1 L (34.0-46.0) % RDW 19.0 H (11.5-15.5) % Potassium 6.0 H (3.5-5.1) mmol/L Chloride 116 H (98-107) mmol/L Carbon Dioxide 21 L (22-30) mmol/L POC Glucose (mg/dL) (75-99) mg/dL Calcium 7.8 L (8.4-10.2) mg/dL AST 45 H (14-36) U/L Total Protein 4.1 L (6.3-8.2) g/dL Albumin 1.6 L (3.5-5.0) g/dL 01/02/17 Range/Units 11:26 RBC (3.80-5.40) m/uL Hgb (11.4-16.0) gm/dL Hct (34.0-46.0) % RDW (11.5-15.5) % Potassium (3.5-5.1) mmol/L Chloride (98-107) mmol/L Carbon Dioxide (22-30) mmol/L POC Glucose (mg/dL) 100 H (75-99) mg/dL Calcium (8.4-10.2) mg/dL AST (14-36) U/L Total Protein (6.3-8.2) g/dL Albumin (3.5-5.0) g/dL Laboratory Results WBC 4.3 k/uL (3.8-10.6) 01/02/17 08:33 RBC 2.56 m/uL (3.80-5.40) L 01/02/17 08:33 Hgb 8.0 gm/dL (11.4-16.0) L 01/02/17 08:33 Hct 24.1 % (34.0-46.0) L 01/02/17 08:33 MCV 94.3 fL (80.0-100.0) 01/02/17 08:33 MCH 31.3 pg (25.0-35.0) 01/02/17 08:33 MCHC 33.2 g/dL (31.0-37.0) 01/02/17 08:33 RDW 19.0 % (11.5-15.5) H 01/02/17 08:33 Plt Count 210 k/uL (150-450) 01/02/17 08:33 Neutrophils % 54 % 01/01/17 08:27 Lymphocytes % 33 % 01/01/17 08:27 Monocytes % 7 % 01/01/17 08:27 Eosinophils % 4 % 01/01/17 08:27 Basophils % 1 % 01/01/17 08:27 Neutrophils # 2.2 k/uL (1.3-7.7) 01/01/17 08:27 Lymphocytes # 1.4 k/uL (1.0-4.8) 01/01/17 08:27 Monocytes # 0.3 k/uL (0-1.0) 01/01/17 08:27 Eosinophils # 0.2 k/uL (0-0.7) 01/01/17 08:27 Basophils # 0.0 k/uL (0-0.2) 01/01/17 08:27 Manual Slide Review Performed 01/01/17 08:27 Hypochromasia Slight 01/02/17 08:33 Poikilocytosis Slight 01/02/17 08:33 Anisocytosis Slight 01/02/17 08:33 Macrocytosis Slight 01/02/17 08:33 PT 15.3 sec (9.0-12.0) H 12/14/16 20:54 INR 1.6 (<1.1) 12/14/16 20:54 APTT 28.0 sec (22.0-30.0) 12/14/16 20:54 Sodium 142 mmol/L (137-145) 01/02/17 08:33 Potassium 4.4 mmol/L (3.5-5.1) 01/02/17 08:33 Chloride 116 mmol/L (98-107) H 01/02/17 08:33 Carbon Dioxide 21 mmol/L (22-30) L 01/02/17 08:33 Anion Gap 5 mmol/L 01/02/17 08:33 BUN 8 mg/dL (7-17) 01/02/17 08:33 Creatinine 0.62 mg/dL (0.52-1.04) 01/02/17 08:33 Est GFR (MDRD) Af Amer >60 (>60 ml/min/1.73 sqM) 01/02/17 08:33 Est GFR (MDRD) Non-Af >60 (>60 ml/min/1.73 sqM) 01/02/17 08:33 Glucose 82 mg/dL (74-99) 01/02/17 08:33 POC Glucose (mg/dL) 100 mg/dL (75-99) H 01/02/17 11:26 POC Glu Electronic Wirer ID Anna Mays 01/02/17 11:26 Plasma Lactic Acid Deion 1.9 mmol/L (0.7-2.0) 12/14/16 20:54 Calcium 7.8 mg/dL (8.4-10.2) L 01/02/17 08:33 Phosphorus 2.8 mg/dL (2.5-4.5) 01/02/17 08:33 Magnesium 1.9 mg/dL (1.6-2.3) 01/02/17 08:33 Iron 33 ug/dL (37-170) L 12/14/16 20:54 TIBC 155 ug/dL (265-497) L 12/14/16 20:54 % Saturation 21.3 % (20-50) 12/14/16 20:54 Ferritin 298 ng/mL (11-264) H 12/14/16 20:54 Total Bilirubin 0.7 mg/dL (0.2-1.3) 01/02/17 08:33 AST 45 U/L (14-36) H 01/02/17 08:33 ALT 49 U/L (9-52) 01/02/17 08:33 Alkaline Phosphatase 62 U/L (38-126) 01/02/17 08:33 Total Creatine Kinase 76 U/L (30-135) 12/14/16 20:54 CK-MB (CK-2) 0.6 ng/mL (0.0-2.4) 12/14/16 20:54 CK-MB (CK-2) Rel Index 0.8 12/14/16 20:54 Troponin I 0.022 ng/mL (0.000-0.034) 12/14/16 20:54 Total Protein 4.1 g/dL (6.3-8.2) L 01/02/17 08:33 Albumin 1.6 g/dL (3.5-5.0) L 01/02/17 08:33 Lipase 70 U/L (23-300) 12/26/16 07:52 CA 15-3 Antigen 20.1 U/mL (<35.1) 12/26/16 07:52 CA 27-29 25.8 U/mL (0.0-38.5) 12/25/16 08:36 TSH 0.936 mIU/L (0.465-4.680) 12/26/16 07:52 Urine Color Yellow 12/14/16 20:52 Urine Appearance Turbid (Clear) H 12/14/16 20:52 Urine pH 5.0 (5.0-8.0) 12/14/16 20:52 Ur Specific [place] 1.014 (1.001-1.035) 12/14/16 20:52 Urine Protein 1+ (Negative) H 12/14/16 20:52 Urine Glucose (UA) Negative (Negative) 12/14/16 20:52 Urine Ketones Negative (Negative) 12/14/16 20:52 Urine Blood Trace (Negative) H 12/14/16 20:52 Urine Nitrate Negative (Negative) 12/14/16 20:52 Urine Bilirubin 1+ (Negative) H 12/14/16 20:52 Urine Urobilinogen 2.0 mg/dL (<2.0) 12/14/16 20:52 Ur Leukocyte Esterase Large (Negative) H 12/14/16 20:52 Urine WBC 75 /hpf (0-5) H 12/14/16 20:52 Urine WBC Clumps Many /hpf (None) H 12/14/16 20:52 Ur Squamous Epith Cells 2 /hpf (0-4) 12/14/16 20:52 Urine Bacteria Many /hpf (None) H 12/14/16 20:52 Hyaline Casts 631 /lpf (0-2) H 12/14/16 20:52 Urine Osmolality 493 mosm/kg (50-1400) 12/30/16 11:18 Ur Random Creatinine 105.2 mg/dL 12/30/16 11:18 U Random Total Protein 37 mg/dL (<12) H 12/30/16 11:18 Ur Random Sodium 133 mmol/L (30-90) H 12/30/16 11:18 Ur Random Potassium 38.9 mmol/L 12/30/16 11:18 Urine Opiates Screen Not Detected (NotDetected) 12/14/16 20:52 Ur Oxycodone Screen Not Detected (NotDetected) 12/14/16 20:52 Urine Methadone Screen Not Detected (NotDetected) 12/14/16 20:52 Ur Propoxyphene Screen Not Detected (NotDetected) 12/14/16 20:52 Ur Barbiturates Screen Not Detected (NotDetected) 12/14/16 20:52 U Tricyclic Antidepress Not Detected (NotDetected) 12/14/16 20:52 Ur Phencyclidine Scrn Not Detected (NotDetected) 12/14/16 20:52 Ur Amphetamines Screen Not Detected (NotDetected) 12/14/16 20:52 U Methamphetamines Scrn Not Detected (NotDetected) 12/14/16 20:52 U Benzodiazepines Scrn Not Detected (NotDetected) 12/14/16 20:52 Urine Cocaine Screen Not Detected (NotDetected) 12/14/16 20:52 U Marijuana (THC) Screen Detected (NotDetected) H 12/14/16 20:52 Miscellaneous Test Urine TP, Random 12/30/16 11:18 Misc Test Result See comment 12/30/16 11:18 Blood Type O Negative 12/29/16 11:54 Blood Type Recheck No 12/29/16 11:54 Antibody Screen NEGATIVE 12/29/16 11:54 Crossmatch See Detail 12/29/16 11:54 Spec Expiration Date 01/01/2017 - 235312/29/16 11:54 Microbiology 12/14/16 21:06 Blood Blood Culture - Final No Growth after 144 hours 12/15/16 13:15 Urine,Catheterized Urine Culture - Final Assessment and Plan (1) Acute renal failure Narrative/Plan: 76-year-old woman with multiple medical troubles presents to Hospital acutely ill. Has acute renal failure showing some improvement. Urinary infection. Recent urine infection with vancomycin-resistant enterococci. Currently receiving Zyvox and being monitored. The significant somewhat better today with hydration and control of her nausea. Does have much less nausea and emesis today. She over still quite miserable. Receiving anxiolytics and some pain control. Laboratories being followed. Her nutritional supplementation when able. Patient's son was present. Relates that in September before the mother became ill. She was independent. Driving. Doing her own shopping preparing her own meals. Constantly they are quite concerned about her drastic overall decline. Has been seen by gastroenterology. Plan for EGD today to further evaluate for the refractory nausea and retching. Neurologic consult performed, work up negative so far. Marinol to be held Discontinue Zyvox negative urine cultures, no change since she's been off antibiotic therapy. There has been a mild improvement of her status since Marinol has been held. But still not doing well overall. We'll not need antibiotic therapy or discharge White to rehab today. With overall goal to improve her status. The patient's been seen by cardiology and echocardiogram without vegetation. Also be seen by psychiatry for the possibility of a neurogenic etiology of her retching. EGD is performed. No malignancy was found Patient this evening is doing a bit better will do further amounts of soft foods and the Ensure which she seems to be tolerating. The patient seems to be aware that she needs to improve her oral intake if she decides to increase her strength to go home. Status: Acute (2) Altered mental status Status: Acute (3) Urinary tract infection Status: Acute
[2017-01-03] MEDS ORDERED: ESCITALOPRAM 20 MG TAB PO SCH (09:00)
== END 2017-01-02 16:20 | DRG 871 ==
LOC: EC 20:23 → 4MS4W 21:58
PROVIDERS: ADMIT Internal Medicine Geriatric Medicine; ATTEND Internal Medicine Geriatric Medicine
PROC: 0T9B70Z Drainage of Bladder with Drainage Device, Via Natural or Artificial Opening (ICD-10-PCS; 2016-12-16)
PROC: 0DB68ZX Excision of Stomach, Via Natural or Artificial Opening Endoscopic, Diagnostic (ICD-10-PCS; 2016-12-28)
PROC: 0DB58ZX Excision of Esophagus, Via Natural or Artificial Opening Endoscopic, Diagnostic (ICD-10-PCS; 2016-12-28)
PROC: 0DB98ZX Excision of Duodenum, Via Natural or Artificial Opening Endoscopic, Diagnostic (ICD-10-PCS; principal; 2016-12-28 11:30)
PROC: 02HV33Z Insertion of Infusion Device into Superior Vena Cava, Percutaneous Approach (ICD-10-PCS; 2016-12-29)
PROC: 30243N1 Transfusion of Nonautologous Red Blood Cells into Central Vein, Percutaneous Approach (ICD-10-PCS; 2016-12-29)
DX: A41.9 Sepsis, unspecified organism (principal); E43 Unspecified severe protein-calorie malnutrition; N17.0 Acute kidney failure with tubular necrosis; G92 Toxic encephalopathy; E87.2 Acidosis; J90 Pleural effusion, not elsewhere classified; D62 Acute posthemorrhagic anemia; I13.0 Hypertensive heart and chronic kidney disease with heart failure and stage 1 through stage 4 chronic kidney disease, or unspecified chronic kidney disease; I48.0 Paroxysmal atrial fibrillation; N39.0 Urinary tract infection, site not specified; R44.3 Hallucinations, unspecified; N18.3 Chronic kidney disease, stage 3 (moderate); K31.84 Gastroparesis; E86.0 Dehydration; E87.8 Other disorders of electrolyte and fluid balance, not elsewhere classified; K76.0 Fatty (change of) liver, not elsewhere classified; R13.10 Dysphagia, unspecified; E87.6 Hypokalemia; K44.9 Diaphragmatic hernia without obstruction or gangrene; D63.8 Anemia in other chronic diseases classified elsewhere; T50.905A Adverse effect of unspecified drugs, medicaments and biological substances, initial encounter; R60.1 Generalized edema; R33.9 Retention of urine, unspecified; I67.9 Cerebrovascular disease, unspecified; R80.9 Proteinuria, unspecified; K29.60 Other gastritis without bleeding; M16.11 Unilateral primary osteoarthritis, right hip; K82.8 Other specified diseases of gallbladder; F32.9 Major depressive disorder, single episode, unspecified; F41.9 Anxiety disorder, unspecified; E78.5 Hyperlipidemia, unspecified; J32.2 Chronic ethmoidal sinusitis; J32.0 Chronic maxillary sinusitis; M54.5 Low back pain; R43.2 Parageusia; R29.6 Repeated falls; F43.25 Adjustment disorder with mixed disturbance of emotions and conduct; K29.50 Unspecified chronic gastritis without bleeding; K21.0 Gastro-esophageal reflux disease with esophagitis; N39.46 Mixed incontinence; M25.552 Pain in left hip; R53.1 Weakness; H53.9 Unspecified visual disturbance; K59.00 Constipation, unspecified; E87.5 Hyperkalemia; S40.022A Contusion of left upper arm, initial encounter; S40.021A Contusion of right upper arm, initial encounter; E66.01 Morbid (severe) obesity due to excess calories; D50.9 Iron deficiency anemia, unspecified; R10.9 Unspecified abdominal pain; R11.2 Nausea with vomiting, unspecified; Z79.01 Long term (current) use of anticoagulants; Z85.3 Personal history of malignant neoplasm of breast; Z79.899 Other long term (current) drug therapy; Z90.49 Acquired absence of other specified parts of digestive tract; Z98.890 Other specified postprocedural states; Z87.19 Personal history of other diseases of the digestive system; Z63.4 Disappearance and death of family member; Z96.89 Presence of other specified functional implants; Z90.13 Acquired absence of bilateral breasts and nipples; Z87.891 Personal history of nicotine dependence; Z74.01 Bed confinement status; Z91.19 Patient's noncompliance with other medical treatment and regimen; Z96.0 Presence of urogenital implants; Z16.24 Resistance to multiple antibiotics; Z87.440 Personal history of urinary (tract) infections; Z16.21 Resistance to vancomycin; Z68.29 Body mass index [BMI] 29.0-29.9, adult; Z71.3 Dietary counseling and surveillance; Z91.81 History of falling
CPT/HCPCS: 36415; 36569; 43239; 70450; 70553; 71020; 71260; 72125; 73502; 74000; 74176; 74240; 76705; 76937; 77001; 78226; 80048; 80053; 80306; 81001; 82550; 82553; 82570; 82728; 83540; 83550; 83605; 83690; 83735; 83935; 84100; 84132; 84133; 84156; 84300; 84443; 84484; 85025; 85027; 85610; 85730; 86300; 86850; 86900; 86901; 86920; 87040; 87086; 88305; 88342; 93005; 93306; 93970; 95816; 96361; 96365; 99285

== ENCOUNTER 2017-01-15 12:19 | Emergency (ER) | payer MEDICARE, BC ==
--- NOTE | 2017-01-15 12:37 | ED ---
General Adult HPI - General Chief complaint: Recheck/Abnormal Lab/Rx Stated complaint: Being transfer Time Seen by Provider: 01/15/17 12:32 Source: patient, family, RN notes reviewed Mode of arrival: EMS Limitations: altered mental status - History of Present Illness Initial comments: Patient is a pleasant 76-year-old female presenting to the emergency department after failed PEG tube placement. Patient had surgery done on her small intestine several months ago secondary to ischemic bowel. This was following bilateral mastectomy for breast cancer. Patient has not ate well since that time. Patient was here for PEG tube placement. This was unable to be done. Surgeon recommended open placement however family request patient transferred. Family is not present at this time however Dr. Quintanilla believe the surgery previously was done at [facility]. - Related Data Home Medications Medication Instructions Recorded Confirmed Atorvastatin [Lipitor] 10 mg PO HS@2100 07/31/16 01/15/17 Omeprazole 20 mg PO DAILY 07/31/16 01/15/17 Apixaban [Eliquis] 5 mg PO BID 11/24/16 01/15/17 Ferrous Sulfate [Feosol] 325 mg PO DAILY 11/24/16 01/15/17 Sennosides-Docusate Sodium 1 tab PO BID 11/24/16 01/15/17 [Senokot-S] Acetaminophen Tab [Tylenol] 650 mg PO Q4H PRN 12/14/16 01/15/17 Cholecalciferol [Vitamin D3] 2,000 unit PO HS 12/14/16 01/15/17 Cyanocobalamin [Vitamin B-12] 500 mcg PO DAILY 12/14/16 01/15/17 Darbepoetin Matty [Aranesp] 40 mcg SQ Q30D 12/14/16 01/15/17 Furosemide [Lasix] 40 mg PO MOWEFR 12/14/16 01/15/17 Lactose-Reduced Food [Ensure Plus] 1 can PO TID BETWEEN MEALS 12/14/16 01/15/17 Melatonin 6 mg PO HS 12/14/16 01/15/17 Potassium Chloride [Klor-Con] 20 meq PO DAILY 12/14/16 01/15/17 Amiodarone [Cordarone] 100 mg PO QAM 01/12/17 01/15/17 Escitalopram [Lexapro] 10 mg PO QAM 01/12/17 01/15/17 Metoprolol Succinate (ER) [Toprol 50 mg PO QAM 01/12/17 01/15/17 XL] Previous Rx's Medication Instructions Recorded ALPRAZolam [Xanax] 0.25 mg PO BID PRN #60 tab 01/02/17 Mirtazapine [Remeron] 15 mg PO HS #30 tab 01/02/17 Allergies Allergy/AdvReac Type Severity Reaction Status Date / Time No Known Allergies Allergy Verified 01/12/17 09:02 Review of Systems ROS Statement: Those systems with pertinent positive or pertinent negative responses have been documented in the HPI. ROS Other: All systems not noted in ROS Statement are negative. Constitutional: Denies: fever Eyes: Denies: eye pain ENT: Denies: ear pain Respiratory: Denies: cough Cardiovascular: Denies: chest pain Endocrine: Reports: fatigue Gastrointestinal: Reports: other (Anorexia). Denies: abdominal pain Genitourinary: Denies: dysuria Musculoskeletal: Denies: back pain Skin: Denies: rash Neurological: Denies: weakness Past Medical History Past Medical History: Atrial Fibrillation, Cancer, GERD/Reflux, Hyperlipidemia, Hypertension Additional Past Medical History / Comment(s): Breast CA status post bilateral mastectomy and implant placement September 2016, ischemic bowel status post exploratory laparotomy,PICC line rt arm [facility] History of Any Multi-Drug Resistant Organisms: Other MDRO Past Surgical History: Bowel Resection, Breast Surgery, Orthopedic Surgery Additional Past Surgical History / Comment(s): LEFT SHOULDER. LEFT FOOT. 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 Past Psychological History: No Psychological Hx Reported Smoking Status: Former smoker Past Alcohol Use History: None Reported Additional Past Alcohol Use History / Comment(s): Quit in 1984, smoked less than 1/2 PPD for 25 yrs. Past Drug Use History: None Reported - Past Family History Mother Family Medical History: No Reported History Father Family Medical History: Myocardial Infarction ([place]) Additional Family Medical History / Comment(s): heart problems General Exam Limitations: altered mental status General appearance: alert, in no apparent distress Head exam: Present: atraumatic Eye exam: Present: normal appearance, PERRL ENT exam: Present: mucous membranes dry Neck exam: Present: normal inspection Respiratory exam: Present: normal lung sounds bilaterally Cardiovascular Exam: Present: regular rate, normal rhythm GI/Abdominal exam: Present: soft. Absent: tenderness Extremities exam: Present: normal inspection Neurological exam: Present: alert Psychiatric exam: Present: normal affect, normal mood Skin exam: Absent: rash Course Vital Signs 01/15/17 12:22 Temperature 97.6 F Pulse Rate 82 Respiratory 20 Rate Blood Pressure 127/81 Medical Decision Making - Medical Decision Making Family is now present and confirms Magdy Cheney. Case was discussed with Dr. Osborn who will accept transfer. Disposition Clinical Impression: Malnutrition Disposition: OTHER INSTITUTION NOT DEFINED - Out of Hospital Transfer - Req. Specs Out of Hospital Transfer - Requested Specifics: Other Emergency Center
[2017-01-15 14:09] VITALS: BP 121/59; PULSE 85; RESP 18
[2017-01-15 14:39] VITALS: TEMP 96.9
== END 2017-01-15 14:44 | disposition other institution (70) ==
LOC: EC 12:19
DX: E46 Unspecified protein-calorie malnutrition (principal); K21.9 Gastro-esophageal reflux disease without esophagitis; I10 Essential (primary) hypertension; E78.5 Hyperlipidemia, unspecified; I48.91 Unspecified atrial fibrillation; Z85.3 Personal history of malignant neoplasm of breast; Z87.891 Personal history of nicotine dependence; Z90.13 Acquired absence of bilateral breasts and nipples; Z79.01 Long term (current) use of anticoagulants; Z79.899 Other long term (current) drug therapy
CPT/HCPCS: 99284

== ENCOUNTER → 2017-01-15 | Day surgery (SDC) | payer MEDICARE, BC ==
[2017-01-12 09:21] VITALS: BMI 35.9
[~2017-01-15] MED LIST: LACTATED RINGERS 1,000 ML IV SCH; LIDOCAINE 1% INJ 10MG/ML (20 ML MDV) ONE; PROPOFOL 10 MG/ML 20 ML VIAL IV ONE
[2017-01-15 08:14] VITALS: RESP 18; TEMP 97.1
--- NOTE | 2017-01-15 11:00 | P.GSHP ---
History of Present Illness H&P Date: 01/15/17 Chief Complaint: Dysphagia 76 years old female presented with poor oral intake, dysphagia and poor appetite. She is status post bilateral mastectomy with reconstruction for breast cancer. She underwent exploratory laparotomy with bowel resection at [facility] in September 2016. Patient had poor oral intake since. She is currently living in group home. Past Medical History Past Medical History: Atrial Fibrillation, Cancer, GERD/Reflux, Hyperlipidemia, Hypertension Additional Past Medical History / Comment(s): Breast CA status post bilateral mastectomy and implant placement September 2016, ischemic bowel status post exploratory laparotomy,PICC line rt arm History of Any Multi-Drug Resistant Organisms: Other MDRO Past Surgical History: Bowel Resection, Breast Surgery, Orthopedic Surgery Additional Past Surgical History / Comment(s): LEFT SHOULDER. LEFT FOOT. 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 Past Psychological History: No Psychological Hx Reported Smoking Status: Former smoker Past Alcohol Use History: None Reported Additional Past Alcohol Use History / Comment(s): Quit in 1984, smoked less than 1/2 PPD for 25 yrs. Past Drug Use History: None Reported - Past Family History Mother Family Medical History: No Reported History Father Family Medical History: Myocardial Infarction ([place]) Additional Family Medical History / Comment(s): heart problems Medications and Allergies Home Medications Medication Instructions Recorded Confirmed Type Atorvastatin [Lipitor] 10 mg PO HS@2100 07/31/16 01/15/17 History Omeprazole 20 mg PO DAILY 07/31/16 01/15/17 History Apixaban [Eliquis] 5 mg PO BID 11/24/16 01/15/17 History Ferrous Sulfate [Feosol] 325 mg PO DAILY 11/24/16 01/15/17 History Sennosides-Docusate Sodium 1 tab PO BID 11/24/16 01/15/17 History [Senokot-S] Acetaminophen Tab [Tylenol] 650 mg PO Q4H PRN 12/14/16 01/15/17 History Cholecalciferol [Vitamin D3] 2,000 unit PO HS 12/14/16 01/15/17 History Cyanocobalamin [Vitamin B-12] 500 mcg PO DAILY 12/14/16 01/15/17 History Darbepoetin Amtty [Aranesp] 40 mcg SQ Q30D 12/14/16 01/15/17 History Furosemide [Lasix] 40 mg PO MOWEFR 12/14/16 01/15/17 History Lactose-Reduced Food [Ensure Plus] 1 can PO TID BETWEEN MEALS 12/14/16 01/15/17 History Melatonin 6 mg PO HS 12/14/16 01/15/17 History Potassium Chloride [Klor-Con] 20 meq PO DAILY 12/14/16 01/15/17 History Amiodarone [Cordarone] 100 mg PO QAM 01/12/17 01/15/17 History Escitalopram [Lexapro] 10 mg PO QAM 01/12/17 01/15/17 History Metoprolol Succinate (ER) [Toprol 50 mg PO QAM 01/12/17 01/15/17 History XL] Allergies Allergy/AdvReac Type Severity Reaction Status Date / Time No Known Allergies Allergy Verified 01/12/17 09:02 Surgical - Exam Vital Signs Temp Pulse Resp BP Pulse Ox 97.1 F L 79 18 106/61 99 01/15/17 08:10 01/15/17 08:10 01/15/17 08:10 01/15/17 08:10 01/15/17 08:10 Assessment and Plan (1) Malnutrition Status: Acute (2) S/P mastectomy, bilateral Status: Acute (3) Breast cancer Status: Chronic Plan: 1. Plan for EGD and PEG tube placement
[2017-01-15 11:47] VITALS: BP 137/66; PULSE 64
--- NOTE | 2017-02-12 18:40 | P.OP ---
Date of Procedure: 01/15/17 Preoperative Diagnosis: H/O breast cancer H/O bowel resection Poor oral intake MAlnutrition Weight loss Postoperative Diagnosis: Same Procedure(s) Performed: EGD Anesthesia: MAC Surgeon: Nadja Rodríguez Pathology: none sent Condition: stable Disposition: PACU Indications for Procedure: 76 yrs old female S/P mastectomy with reconstruction for breast cancer. S/P xlap , bowel resection at [facility] ( details unknown) with non healing abdominal wound. Poor appetite , limited oral intake and malnutrition. Patient presents for EGD and PEG tube placemet. Informed consent obtained . Operative Findings: NO light reflex seen on anterior abdominal wall. Hence PEG tube was not inserted. Description of Procedure: A timeout was performed to verify the correct patient and correct procedure. Patient was on continuous vitals and pulse ox monitoring throughout the procedure. She was placed in lateral decubitus position and an oral bite block was inserted. A well-lubricated Olympus upper endoscope was passed orally. The esophagus was intubated without difficulty. The vocal cords were visualised and protected at all times. The endoscope was passed beyond the pylorus into the first and second portion of the duodenum. No abnormality is noted in the duodenum mucosa. No mass, active ulcer or bleeding stigmata noted within the gastric lumen. The GE junction is measured at 38 cm from the incisors . No evidence of reflux esophagitis. No light reflex could be visualised along anterior abdominal wall inspite of dimming the room light. Hence, no PEG tube insertion was attempted. The endoscope was gradually withdrawn. No abnormality identified in the esophagus. Patient tolerated the procedure well and was taken to post anesthesia care unit in stable condition. Dr. Quintanilla notified. Plan for transfer to [facility] for open feeding tube placement.
== END ==
LOC: ORWHC2ENDO 07:34
PROVIDERS: ATTEND Surgery
DX: E46 Unspecified protein-calorie malnutrition (principal); R13.10 Dysphagia, unspecified; R63.0 Anorexia; R63.4 Abnormal weight loss; Z90.13 Acquired absence of bilateral breasts and nipples; Z85.3 Personal history of malignant neoplasm of breast; Z90.49 Acquired absence of other specified parts of digestive tract; I48.91 Unspecified atrial fibrillation; K21.9 Gastro-esophageal reflux disease without esophagitis; E78.5 Hyperlipidemia, unspecified; I10 Essential (primary) hypertension; Z79.01 Long term (current) use of anticoagulants; Z79.899 Other long term (current) drug therapy; Z87.891 Personal history of nicotine dependence
CPT/HCPCS: 99284; 43235; J2001; J2704

== ENCOUNTER → 2017-11-05 | Outpatient (CLI) | payer MEDICARE ==
[~2017-11-05] MED LIST changes: +AMINOPHYLLINE 500 MG/20 ML VIAL IV ONE; -LACTATED RINGERS 1,000 ML IV SCH; -LIDOCAINE 1% INJ 10MG/ML (20 ML MDV) ONE; -PROPOFOL 10 MG/ML 20 ML VIAL IV ONE; +REGADENOSON 0.4 MG/5 ML SYRINGE IV ONE
--- NOTE | 2017-11-05 11:43 | EST ---
EXERCISE STRESS AGE: 76 SEX: F HT: 57" WT: 199 PROTOCOL: Lexiscan Cardiolite Stress Test HEART RATE REST: 54 BLOOD PRESSURE REST: 157/79 MAXIMUM HEART RATE ACHIEVED: 73 MAXIMUM BLOOD PRESSURE: 150/78 85% MPHR: 122 100% MPHR: 143 INDICATIONS: Chest pain. CLINICAL INFORMATION: STRESS DATA: Pretesting physical examination showed a heart rate of 54, pressure is 157/70 Hg. Baseline EKG showed sinus mechanism; 0.4 mg of Lexiscan was given to the patient at 15 seconds per protocol. Max heart rate was 73 beats per minute and maximum pressure was 150/78 mmHg. Clinically, the patient did not have any symptoms of chest pain or discomfort and the EKG did not show any significant ST or T-wave abnormalities consistent with ischemia. CONCLUSION: 1. Nondiagnostic electrocardiogram stress testing in response to Lexiscan. 2. Please follow up on the Cardiolite portion on separate report from the Radiology Department. MMODL / IJN: [id number] /
--- NOTE | 2017-11-05 12:34 | NM ---
EXAMINATION TYPE: NM stress lexiscan cardiolite DATE OF EXAM: 11/05/2017 COMPARISON: CT chest December 27, 2016 HISTORY: History of hypertension and personal history of tobacco use in the past quit 22 years ago wi th family history of heart attack presents with chest pain, palpitations, and difficulty in breathing TECHNIQUE: After the intravenous administration of 10.2 mCi Tc 99m Sestamibi - Cardiolite resting SP ECT images acquired 45 minutes post injection. The patient received 0.4mg Lexiscan, 30 mCi Tc 99m Sestamibi - Stress images obtained 30 minutes post injection FINDINGS: Comparison chest CT shows severe 3 vessel coronary artery calcification. Review of stress and rest SPECT images demonstrates poor uptake involving the anteroseptal wall more prominent near apex that shows some improved uptake on rest images. 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 Gated analysis shows overall left fraction of 34 %, diminished from the normal range with some hypokinesis in the i nferiorly and septal wall noted. IMPRESSION: Abnormal study, cannot exclude reversible ischemia. Further investigation with direct catheter angiog kimi should be considered.
--- NOTE | 2017-11-06 10:52 | ECHOF ---
Referral Reason:R07.9 Chest pain MEASUREMENTS -------- HEIGHT: 170.2 cm WEIGHT: 90.3 kg BP: 151/79 RVIDd: 3.5 cm (< 3.3) IVSd: 1.2 cm (0.6 - 1.1) LVIDd: 4.9 cm (3.9 - 5.3) LVPWd: 1.2 cm (0.6 - 1.1) IVSs: 1.6 cm LVIDs: 3.1 cm LVPWs: 1.8 cm LA Diam: 3.9 cm (2.7 - 3.8) LAESV Index (A-L): 39.32 ml/m Ao Diam: 3.3 cm (2.0 - 3.7) MV EXCURSION: 8.330 mm (> 18.000) MV EF SLOPE: 52 mm/s (70 - 150) EPSS: 1.7 cm MV E Konrad: 1.22 m/s MV DecT: 133 ms MV A Konrad: 0.84 m/s MV E/A Ratio: 1.45 RAP: 5.00 mmHg RVSP: 39.79 mmHg FINDINGS -------- Sinus rhythm. This was a technically adequate study. The left ventricular size is normal. There is borderline concentric left ventricular hypertrophy. Overall left ventricular systolic function is normal with, an EF between 55 - 60 %. The right ventricle is mildly enlarged. LA is moderately dilated 34-39 ml/m2 The right atrium is normal in size. There is mild aortic valve sclerosis. The mitral valve leaflets are mildly thickened. Mild mitral annular calcification present. Mild tricuspid regurgitation present. There is mild pulmonary hypertension. The right ventricular systolic pressure, as measured by Doppler, is 39.79mmHg. The pulmonic valve was not well visualized. The aortic root size is normal. Normal inferior vena cava with normal inspiratory collapse consistent with estimated right atrial pre ssure of 5 mmHg. There is no pericardial effusion. CONCLUSIONS -------- 1. Sinus rhythm. 2. This was a technically adequate study. 3. The left ventricular size is normal. 4. There is borderline concentric left ventricular hypertrophy. 5. Overall left ventricular systolic function is normal with, an EF between 55 - 60 %. 6. The right ventricle is mildly enlarged. 7. LA is moderately dilated 34-39 ml/m2 8. The right atrium is normal in size. 9. There is mild aortic valve sclerosis. 10. The mitral valve leaflets are mildly thickened. 11. Mild mitral annular calcification present. 12. Mild tricuspid regurgitation present. 13. There is mild pulmonary hypertension. 14. The right ventricular systolic pressure, as measured by Doppler, is 39.79mmHg. 15. The pulmonic valve was not well visualized. 16. The aortic root size is normal. 17. Normal inferior vena cava with normal inspiratory collapse consistent with estimated right atrial pressure of 5 mmHg. 18. There is no pericardial effusion. ARCHITECTURE DRAFTER: Joselin Funk RDCS
== END | disposition home or self-care (01) ==
LOC: RADNMMAIN 08:29
PROVIDERS: ATTEND Family Medicine
DX: R07.9 Chest pain, unspecified (principal); I50.33 Acute on chronic diastolic (congestive) heart failure
CPT/HCPCS: 93017; 93306; 78452; A9500; J2785

== ENCOUNTER 2017-12-13 06:13 | Day surgery (SDC) | payer MEDICARE ==
[2017-12-11 11:19] VITALS: BMI 31.0
[2017-12-13] MEDS ORDERED: ALPRAZolam 0.25 MG TAB PO PRN ×2 (06:29→08:38)
[2017-12-13] MEDS ORDERED: SODIUM CHLORIDE 0.9% 1,000 ML in EMPTY BAG 1 BAG IV ONE (06:29)
[2017-12-13] MEDS ORDERED: NITROGLYCERIN SL TABS 0.4 MG TAB SUBLINGUAL PRN (06:29)
[2017-12-13] MEDS ORDERED: ALPRAZolam 0.5 MG TAB PO PRN (06:29)
[2017-12-13] MEDS ORDERED: ASPIRIN 325 MG TAB PO STA (06:29)
[2017-12-13] MEDS ORDERED: LIDOCAINE 2% INJ 20 MG/ML (20 ML MDV) ONE (07:13)
[2017-12-13] MEDS ORDERED: diphenhydrAMINE 50 MG/ML 1 ML VIAL ONE (07:13)
[2017-12-13] MEDS ORDERED: fentaNYL (PF) 50 MCG/ML 2 ML AMP ONE (07:13)
[2017-12-13] MEDS ORDERED: MIDAZOLAM 2 MG/2 ML VIAL ONE (07:13)
[2017-12-13 07:20] VITALS: RESP 16; TEMP 97.6
[2017-12-13] MEDS ORDERED: fentaNYL (PF) 50 MCG/ML 2 ML AMP IVP ONE (07:45)
[2017-12-13] MEDS ORDERED: diphenhydrAMINE 50 MG/ML 1 ML VIAL IVP ONE (07:45)
[2017-12-13] MEDS ORDERED: LIDOCAINE 2% INJ 20 MG/ML SQ ONE ×2 (07:49→07:52)
[2017-12-13] MEDS ORDERED: NITROGLYCERIN SL TABS 0.4 MG TAB SUBLINGUAL ONE ×2 (07:55)
[2017-12-13] MEDS ORDERED: IOHEXOL 350 MG/ML 125ML BOTTLE INJ ONE (08:16)
[2017-12-13 08:18] LABS: O2 Sat Blood Gas 61.4 %
[2017-12-13 08:20] LABS: O2 Sat Blood Gas 91.7 %
[2017-12-13 08:22] LABS: O2 Sat Blood Gas 56.5 %
[2017-12-13] MEDS ORDERED: RX INFO: IV CONTRAST WAS GIVEN 1 EACH MISC MISCELLANE PRN (08:37)
[2017-12-13] MEDS ORDERED: ACETAMINOPHEN TAB 325 MG TAB PO PRN (08:38)
[2017-12-13] MEDS ORDERED: SODIUM CHLORIDE 0.9% 1,000 ML IV SCH (08:45)
[2017-12-13] MEDS ORDERED: SENNOSIDES-DOCUSATE SODIUM 1 EACH TAB PO SCH (09:00)
[2017-12-13] MEDS ORDERED: THIAMINE 100 MG TAB PO SCH (09:00)
[2017-12-13] MEDS ORDERED: LOSARTAN 50 MG TAB PO SCH (09:00)
[2017-12-13] MEDS ORDERED: POTASSIUM CHLORIDE 10 MEQ PO SCH (09:00)
[2017-12-13] MEDS ORDERED: AMIODARONE 100 MG TAB PO SCH (09:00)
[2017-12-13] MEDS ORDERED: METOPROLOL SUCCINATE (ER) 50 MG TAB.ER.24H PO SCH (09:00)
[2017-12-13] MEDS ORDERED: MIDODRINE 5 MG TAB PO SCH (09:00)
[2017-12-13] MEDS ORDERED: ESCITALOPRAM 10 MG TAB PO SCH (09:00)
[2017-12-13] MEDS ORDERED: FOLIC ACID 1 MG TAB PO SCH (09:00)
[2017-12-13] MEDS ORDERED: MECLIZINE 25 MG TAB PO SCH (09:00)
[2017-12-13] MEDS ORDERED: NON-FORMULARY DRUG (Omeprazole [Omeprazole] 20 MG) PO SCH (09:00)
--- NOTE | 2017-12-13 09:02 | CC ---
CARDIAC CATHETERIZATION REPORT Mrs. Overton is a 77-year-old female with a history of hypertension, hyperlipidemia who presented with symptoms of progressive dyspnea on exertion and occasional episode of chest discomfort. She had an abnormal myocardial perfusion imaging with anteroseptal ischemia. In view of that, recommendation was made regarding cardiac catheterization. The procedure as well as the risks and complications were discussed with the patient who is in full understanding and agreement. PROCEDURE: Patient was brought to the labor mediator in a fasting semi-sedated state after receiving fentanyl and Benadryl and achieving moderate conscious sedated state. Using Xylocaine anesthesia in the Seldinger technique, a 6-Angolan sheath was introduced in the right femoral artery and an 8-Angolan sheath in the right femoral vein. Right heart catheterization was performed using Charlotte-Marybeth catheter. Multiple pressure samples were obtained. Cardiac output by thermodilution was calculated. Following that, selective right and left coronary angiography were performed with 6-Angolan, 4 bend right and left Mila catheter. Multiple views of the coronary artery including hemiaxial views were obtained. Following that, a 6-Angolan tight pigtail catheter was introduced into the left ventricle and a 30-degree PARKS view of the left ventricle was obtained. Following that, the catheter and sheaths were removed. Hemostasis was obtained with deployment of an Angio-Seal in the right femoral artery and compression of the right femoral vein. There was no immediate complication. Patient was returned to her room in stable condition. FINDINGS: HEMODYNAMICS: The cardiac output by thermodilution of 4.8 L/minute and by Haylie 4.2 L/minute. Right atrial saturation 57%. Pulmonary artery saturation 61%. Femoral artery saturation 92%. Pulmonary artery systolic pressure of 48 with a diastolic of 11 and a mean of 27 mmHg. Pulmonary capillary wedge pressure A-wave of 20, V-wave of 25 with a mean of 60 mmHg. Right ventricular systolic pressure of 50 with an end- diastolic of 6. Right atrial A-wave of 7, V-wave of 8 with a mean of 5 mmHg. Left ventricular end-diastolic pressure was 12 to 14 mmHg. There was no gradient across the aortic valve. FLUOROSCOPY: There was severe calcification involving the mitral annulus as well as calcification involving the coronary arteries. LEFT MAIN: This is a large-sized vessel bifurcating in left circumflex and left anterior descending artery. Left main coronary artery without any significant obstructive coronary artery disease. LEFT ANTERIOR DESCENDING ARTERY: This is a large-sized vessel reaching to the apex with a wraparound apex segment giving rise to 2 diagonal branches. The left anterior descending artery as well as branches have no evidence of high-grade stenosis. LEFT CIRCUMFLEX: This is a nondominant vessel, large in caliber giving rise to a large obtuse marginal branch. The left circumflex proximally has a 20% plaque. The rest of the vessel has no high-grade stenosis. RIGHT CORONARY ARTERY: This is a large dominant vessel, calcified, bifurcating distally PDA and posterolateral segment and branches. The right coronary artery as well as branches have no evidence of obstructive coronary artery disease. LEFT VENTRICULOGRAM: Left ventriculogram is performed in 30-degree PARKS view and revealed normal left ventricular size and systolic function. The ejection fraction is 60%. There was arrhythmia induced mitral regurgitation. CONCLUSION: 1. Mild coronary arteries. 2. Mild pulmonary hypertension. 3. Normal left ventricular size and systolic function. RECOMMENDATION: In view of finding anatomy, I recommend to continue medical therapy with aggressive coronary risk modification that has been initiated. Those findings and recommendations were discussed with the patient and her family and they are in full understanding and agreement. Duration of procedure 33 minutes. MMODL / IJN: [id number] /
--- NOTE | 2017-12-13 09:05 | LTR ---
December 13, 2017 Re: Cat Overton Dear Dr. Quintanilla: I had an opportunity to perform cardiac catheterization on Mrs. Overton at [facility] on the 13 of December and a full copy of the procedure note will be forwarded to you. In brief, she was found to have mild obstructive coronary artery disease with preserved left ventricular size and systolic function and evidence of mild pulmonary hypertension. Based on those findings, I recommend to continue medical therapy with the aggressive coronary risk modification that has been initiated. Thank you again for allowing me the opportunity to participate in her care. Please feel free to call for any questions. Sincerely yours, Edward Lopez MD MMERINL / JUSTINN: [id number] /
[2017-12-13 13:18] VITALS: BP 172/72; PULSE 52
[2017-12-13] MEDS ORDERED: MIRTAZAPINE 15 MG TAB PO SCH (21:00)
[2017-12-13] MEDS ORDERED: ATORVASTATIN 10 MG TAB PO SCH (21:00)
[2017-12-13] MEDS ORDERED: MELATONIN 3 MG TABLET PO SCH (21:00)
== END 2017-12-13 13:18 | disposition home or self-care (01) ==
LOC: CATHCVL 06:13
PROVIDERS: ATTEND Internal Medicine Interventional Cardiology
DX: I25.10 Atherosclerotic heart disease of native coronary artery without angina pectoris (principal); I25.84 Coronary atherosclerosis due to calcified coronary lesion; I10 Essential (primary) hypertension; I27.20 Pulmonary hypertension, unspecified; Z87.891 Personal history of nicotine dependence; I48.0 Paroxysmal atrial fibrillation; E78.2 Mixed hyperlipidemia; Z82.49 Family history of ischemic heart disease and other diseases of the circulatory system; Z79.899 Other long term (current) drug therapy
CPT/HCPCS: 93460; 85018; 82810; C1760; C1894 ×4; C1769; J2001; J1200; J3010; Q9967

== ENCOUNTER 2017-12-14 19:44 | Emergency (ER) | payer MEDICARE ==
[2017-12-14] MEDS ORDERED: HYDROcodone/APAP 5-325MG 1 EACH TAB PO STA (20:17)
[2017-12-14 20:37] LABS: Basophils % (A) 0 %; Eosinophils # (A) 0.2 k/uL (0-0.7); Eosinophils % (A) 2 %; HCT 29.8 % (34.0-46.0); HGB 9.7 gm/dL (11.4-16.0); Lymphocytes % (A) 10 %; MCH 30.2 pg (25.0-35.0); MCHC 32.6 g/dL (31.0-37.0); MCV 92.6 fL (80.0-100.0); Mean Platelet Volume 8.1; Monocytes # (A) 0.5 k/uL (0-1.0); Monocytes % (A) 5 %; Neutrophils # (A) 8.6 k/uL (1.3-7.7); Neutrophils % (A) 83 %; Platelet Count 243 k/uL (150-450); RBC 3.22 m/uL (3.80-5.40); RDW 13.8 % (11.5-15.5); WBC 10.4 k/uL (3.8-10.6)
--- NOTE | 2017-12-14 21:06 | XR ---
EXAMINATION TYPE: XR chest 2V DATE OF EXAM: 12/14/2017 COMPARISON: 12/14/2016 HISTORY: Chest pain TECHNIQUE: Frontal and lateral views of the chest are obtained. FINDINGS: There is no heart failure nor confluent pneumonic infiltrate. Costophrenic angles are tramaine r. There are bilateral breast implants. There are chest leads. Heart size is normal. There is 25% ant erior wedging of T8 vertebra. IMPRESSION: No active cardiac pulmonary disease. There is compression fracture of T8 that is increas ed compared to old exam.
--- NOTE | 2017-12-14 21:54 | US ---
EXAMINATION TYPE: US lower ext pseudo artery RT DATE OF EXAM: 12/14/2017 COMPARISON: NONE CLINICAL HISTORY: Right groin pain and swelling after heart cath yesterday. EXAM PERFORMED: Grayscale and color Doppler duplex imaging performed of the groin, post cardiac alta ter to assess for pseudoaneurysm. SIDE PERFORMED: Right Color and Waveform Doppler performed to assess for the presence of pseudoaneurysm; Is there ultrasound evidence of a pseudoaneurysm: No Is there evidence of AV shunting: No Is there a fluid collection present: Yes, measuring 7.6 x 2.7 x 9.5 cm IMPRESSION: There is an elongated complex fluid collection that measures 7.6 x 3 cm and consistent wi th hematoma. No evidence of pseudoaneurysm.
--- NOTE | 2017-12-14 22:01 | ED ---
General Adult HPI - General Chief complaint: Chest Pain Stated complaint: Groin Pain/Nausea Time Seen by Provider: 12/14/17 20:16 Source: EMS Mode of arrival: EMS Limitations: no limitations - History of Present Illness Initial comments: This is a 77-year-old female who presents emergency department for right inguinal pain. She states that she had a cardiac cath done yesterday. She noticed some swelling in the right inguinal region and pain today so she decided come emergency room. On the way and she did develop some left-sided chest wall discomfort. She states that she's had this before and believes that it's related to "metal plates in her chest from previous breast surgery". She states that she was given 2 morphine in the ambulance and had improvement in her symptoms. She denies any numbness, tingling, or weakness in her lower extremity. Denies any trauma to the area. No other acute complaints. - Related Data Home Medications Medication Instructions Recorded Confirmed Omeprazole 20 mg PO DAILY 07/31/16 12/14/17 Apixaban [Eliquis] 5 mg PO BID 11/24/16 12/14/17 Escitalopram [Lexapro] 10 mg PO DAILY 01/12/17 12/14/17 Losartan [Cozaar] 50 mg PO DAILY 12/13/17 12/14/17 Meclizine [Antivert] 25 mg PO TID 12/13/17 12/14/17 Amiodarone HCl [Pacerone] 200 mg PO DAILY 12/14/17 12/14/17 Aspirin [Adult Low Dose Aspirin EC] 324 mg PO DAILY PRN 12/14/17 12/14/17 Ferrous Sulfate [Feosol] 325 mg PO DAILY 12/14/17 12/14/17 HYDROcodone/APAP 5-325MG [Ennice 1 tab PO Q8HR PRN 12/14/17 12/14/17 5-325] Metoprolol Succinate (ER) [Toprol 100 mg PO DAILY 12/14/17 12/14/17 Xl] Previous Rx's Medication Instructions Recorded Hydrocodone/Acetaminophen [Ennice 1 tab PO Q6HR PRN #6 tab 12/14/17 5-325] Allergies Allergy/AdvReac Type Severity Reaction Status Date / Time No Known Allergies Allergy Verified 12/14/17 20:40 Review of Systems ROS Statement: Those systems with pertinent positive or pertinent negative responses have been documented in the HPI. ROS Other: All systems not noted in ROS Statement are negative. 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 Bilateral mastectomy 09/22, ex-lap with SBR for ischemic bowel on BOWEL SURGERY OCT 2016-BOWEL'RUPTURE', tiff. cataract with lens implants Past Anesthesia/Blood Transfusion Reactions: Motion Sickness, Postoperative Nausea & Vomiting (PONV) Additional Past Anesthesia/Blood Transfusion Reaction / Comment(s): PATIENT STATES HER TEETH IMPLANTS WERE DISLODGED DURING INTUBATION AND SHE SWALLOWED A TOOTH. Past Psychological History: Depression Smoking Status: Former smoker - Past Family History Mother Family Medical History: Diabetes Mellitus Father Family Medical History: Myocardial Infarction ([place]) Additional Family Medical History / Comment(s): heart problems General Exam - General Exam Comments Initial Comments: Constitutional: Awake alert Appears comfortable Head: Normocephalic atraumatic Eyes: no conjunctival injection No scleral icterus EOMI Neck: No JVD Supple Heart: Regular rate rhythm normal S1-S2 no murmurs Lungs: Clear to auscultation bilaterally No wheezing No rales, tenderness to palpation along the left chest wall just under the left breast Abdomen: Soft nondistended nontender Extremities: Non edematous DP pulses intact Radial pulses intact, there is swelling and tenderness to palpation the right inguinal region with some mild ecchymosis. 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 There is no abnormal ST segment changes. There are T-wave inversions in lead V3 V4 and V5 with some flattening in V6. Also a T-wave inversion in V2 and aVF. QTC is 461. Other intervals normal. No ectopy. Medical Decision Making - Medical Decision Making This is a 77-year-old female who presents emergency department for right groin pain. She had a cath performed yesterday. She did have some swelling in the right groin. She is neurovascularly intact distal to this area. She had warm extremities. Ultrasound showed what appeared to be a hematoma. No pseudoaneurysm. The patient felt improved after pain medications. We'll send the patient home at this time. Her hemoglobin was stable. I told her to hold her L Artur dose tomorrow and resume it the next day. 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 I instructed her to return if the swelling worsened at all or she develops any numbness or weakness in her extremity. All questions were answered. Son was at bedside and agreed with this as well. - Lab Data Result diagrams: 12/14/17 20:20 Lab Results 12/14/17 Range/Units 20:20 WBC 10.4 (3.8-10.6) k/uL RBC 3.22 L (3.80-5.40) m/uL Hgb 9.7 L (11.4-16.0) gm/dL Hct 29.8 L (34.0-46.0) % MCV 92.6 (80.0-100.0) fL MCH 30.2 (25.0-35.0) pg MCHC 32.6 (31.0-37.0) g/dL RDW 13.8 (11.5-15.5) % Plt Count 243 (150-450) k/uL Neutrophils % 83 % Lymphocytes % 10 % Monocytes % 5 % Eosinophils % 2 % Basophils % 0 % Neutrophils # 8.6 H (1.3-7.7) k/uL Lymphocytes # 1.0 (1.0-4.8) k/uL Monocytes # 0.5 (0-1.0) k/uL Eosinophils # 0.2 (0-0.7) k/uL Basophils # 0.0 (0-0.2) k/uL Disposition Clinical Impression: Groin hematoma Disposition: HOME SELF-CARE Condition: Stable Instructions: Hematoma (ED) Additional Instructions: Hold Eliquis tomorrow. Call your doctor tomorrow. Return if the swelling is worse. Prescriptions: Hydrocodone/Acetaminophen [Ennice 5-325] 1 tab PO Q6HR PRN #6 tab PRN Reason: Pain Referrals: Luisana Quintanilla MD [Primary Care Provider] - 1-2 days
[2017-12-14 23:28] VITALS: BP 132/78; PULSE 65; RESP 20; TEMP 96.8
== END 2017-12-14 23:30 | disposition home or self-care (01) ==
LOC: EC 19:44
DX: S30.1XXA Contusion of abdominal wall, initial encounter (principal); I48.91 Unspecified atrial fibrillation; K21.9 Gastro-esophageal reflux disease without esophagitis; E78.5 Hyperlipidemia, unspecified; I10 Essential (primary) hypertension; F32.9 Major depressive disorder, single episode, unspecified; Z95.3 Presence of xenogenic heart valve; Z95.9 Presence of cardiac and vascular implant and graft, unspecified; Z87.891 Personal history of nicotine dependence; Z79.01 Long term (current) use of anticoagulants; Z79.82 Long term (current) use of aspirin; Z79.899 Other long term (current) drug therapy
CPT/HCPCS: 36415; 71046; 85025; 93005; 93975; 99285

== ENCOUNTER → 2018-01-09 | Outpatient (CLI) | payer MEDICARE ==
--- NOTE | 2018-01-09 13:37 | XR ---
EXAMINATION TYPE: XR chest 2V DATE OF EXAM: 01/09/2018 COMPARISON: 12/14/2017 HISTORY: 77-year-old female preprocedural exam, history of breast cancer TECHNIQUE: Frontal and lateral views FINDINGS: Heart normal size. Mild elongation thoracic aorta. Arch calcifications. Mild interstitial prominence appears chronic. Mild anterior wedging of a midthoracic vertebral body unchanged from 12/14/2017. Breas t expanders are present on both sides. IMPRESSION: Chronic changes, possible chronic bronchitis/asthma. No acute process seen. 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 Mild anterior wedging of a midthoracic vertebral body stable from 12/14/2017.
--- NOTE | 2018-01-09 13:39 | CT ---
EXAMINATION TYPE: CT brain wo con DATE OF EXAM: 01/09/2018 COMPARISON: 12/14/2016 HISTORY: 77-year-old female Concussion without loss of consciousness. Fall 3 with ago with impact to the right parietal region. TECHNIQUE: Examination was done in axial plane without intravenous contrast. Coronal and sagittal r econstructions performed. CT DLP: 1054.2 mGycm Automated exposure control for dose reduction was used. FINDINGS: There is no evidence of acute intracranial hemorrhage, acute ischemic changes, mass, mass-effect, or extra-axial fluid collection. There is no effacement of cerebral sulci or basal subarachnoid cister ns. There is no hydrocephalus. There is no midline shift. Bledsoe-white matter distinction is preserv ed. Moderate generalized supratentorial volume loss and mild patchy white matter hypodensities cortical a nd periventricular regions. Continued severe opacification right ethmoid air cells and right maxillary sinus. Orbits and globes a re intact. No calvarial fracture. IMPRESSION: 1. No acute intracranial abnormality seen. Stable mild atrophy and mild changes of chronic small vess el ischemic disease. 2. Continued severe chronic right ethmoid and maxillary sinus disease.
== END | disposition home or self-care (01) ==
LOC: RADCTMAIN 12:49
PROVIDERS: ATTEND Family Medicine
DX: Z01.818 Encounter for other preprocedural examination (principal); G31.9 Degenerative disease of nervous system, unspecified; I67.82 Cerebral ischemia
CPT/HCPCS: 70450; 71046

== ENCOUNTER → 2018-01-15 | Day surgery (SDC) | payer MEDICARE ==
[2018-01-08 08:22] VITALS: BMI 28.1
[~2018-01-15] MED LIST changes: -AMINOPHYLLINE 500 MG/20 ML VIAL IV ONE; +DEXAMETHASONE SOD PHOSPHATE 10 MG/ML 1 ML VIAL IV ONE; +ENOXAPARIN 40 MG/0.4 ML SYRINGE SQ STA; +GLYCOPYRROLATE 0.2 MG/ML 2 ML VIAL ONE; +HYDROcodone/APAP 7.5-325MG 1 EACH TAB PO PRN; +LACTATED RINGERS 1,000 ML IV ONE; +LACTATED RINGERS 1,000 ML IV SCH; +LIDOCAINE 1% INJ 10MG/ML (20 ML MDV) ONE; +MIDAZOLAM 2 MG/2 ML VIAL ONE; +MORPHINE SULFATE 10 MG/ML SYRINGE IVP ONE; +MORPHINE SULFATE 4MG/4ML SYRG IV PRN; +NEOSTIGMINE 1 MG/ML 10 ML VIAL ONE; +ONDANSETRON 4 MG/2 ML VIAL IVP ONE; +PROPOFOL 10 MG/ML 20 ML VIAL IV ONE; -REGADENOSON 0.4 MG/5 ML SYRINGE IV ONE; +ROCURONIUM BROMIDE 10 MG/ML 10 ML VIAL IV ONE; +SUCCINYLCHOLINE CHLORIDE 100 MG/5 ML SYR IV ONE; +ceFAZolin IN SWFI 2 GM/20 ML SYRINGE IVP ONE; +diphenhydrAMINE 50 MG/ML 1 ML VIAL IVP ONE; +fentaNYL (PF) 50 MCG/ML 2 ML AMP IVP ONE; +fentaNYL (PF) 50 MCG/ML 2 ML AMP ONE; +hydrALAZINE HCL 20 MG/ML 1 ML VIAL IVP ONE; +hydrALAZINE HCL 20 MG/ML 1 ML VIAL ONE
[2018-01-15 10:01] LABS: Basophils % (A) 1 %; Eosinophils # (A) 0.1 k/uL (0-0.7); Eosinophils % (A) 2 %; HCT 33.6 % (34.0-46.0); HGB 10.8 gm/dL (11.4-16.0); Hypochromasia Slight; Lymphocytes # (A) 1.8 k/uL (1.0-4.8); Lymphocytes % (A) 27 %; MCH 30.4 pg (25.0-35.0); MCHC 32.3 g/dL (31.0-37.0); MCV 94.1 fL (80.0-100.0); Mean Platelet Volume 7.1; Monocytes # (A) 0.5 k/uL (0-1.0); Monocytes % (A) 7 %; Neutrophils # (A) 4.1 k/uL (1.3-7.7); Neutrophils % (A) 62 %; Platelet Count 366 k/uL (150-450); RBC 3.57 m/uL (3.80-5.40); RDW 14.3 % (11.5-15.5); WBC 6.6 k/uL (3.8-10.6)
[2018-01-15 10:15] LABS: Potassium 4.8 mmol/L (3.5-5.1)
[2018-01-15 11:54] VITALS: TEMP 96.8
[2018-01-15 12:16] VITALS: RESP 16
[2018-01-15 13:10] VITALS: BP 163/71; PULSE 52
--- NOTE | 2018-01-15 22:33 | OP ---
OPERATIVE REPORT DATE OF SURGERY: 01/15/2018 PREOPERATIVE DIAGNOSES: 1. Acquired loss, right and left breasts. 2. Personal history of breast cancer. 3. Personal history of bilateral mastectomy. POSTOPERATIVE DIAGNOSES: 1. Acquired loss, right and left breasts. 2. Personal history of breast cancer. 3. Personal history of bilateral mastectomy. OPERATIVE PROCEDURES: 1. Removal of right breast tissue roller setter without insertion of permanent prosthesis. 2. Removal of left breast tissue roller setter without insertion of permanent prosthesis. OPERATIVE INDICATIONS: The patient is a 77-year-old female with multiple medical comorbidities and a past history of breast cancer treated with bilateral mastectomy and immediate reconstruction via tissue roller setter technique. Following these procedures, the patient had other severe health concerns and was unable to follow up initially as she required surgery for other critical conditions. She then followed up in delayed fashion, completed the expansion process, although as the expansion process was delayed several months from the surgery, there had been shifting of the expanders; although expansion proceeded in normal fashion, expanders were also malpositioned and this did not improve with increasing volumes. The patient was counseled in my office that either her expanders needed repositioning to optimize ability to reconstruct or removal. A long discussion was held with the patient, reviewing potential options, including the possibility of placing implants at this time. In the end, the patient desired if implants could be placed to proceed with that, and if the implants could not be placed, she desired removal of the expanders so she could discontinue her reconstruction. She has had multiple changes in her health care status, including cardiac problems that make not only surgery more risky but have affected her health in general terms. She understands the potential risks and complications with the surgery and that outcomes cannot be guaranteed. Potential risks and complications include seroma, hematoma, wound infection, wound healing problems, among others. She has requested I perform the surgery today. OPERATIVE PROCEDURE SUMMARY: The patient was seen in the presurgical area, procedure reviewed, all questions answered. She was transported to the operating room, where she was placed in supine position. Following induction of general endotracheal anesthesia, the patient was prepped and draped in the usual fashion. The surgery was initiated on the left side. A transverse diagram was drawn with a skin marker for incision including the patient's prior mastectomy scar. Incision was made through the tissue with a 10 blade scalpel, dividing the skin in full-thickness fashion and then using cauterization to divide subcutaneous tissue. There was an area quite hard, firm seen in the irregular scar tissue at this point that was excised and sent for frozen section analysis. While awaiting frozen, skin and subcutaneous tissue flap was elevated off the muscle flap tissue. Extensive dissection was required to release contour irregularities. An incision was then made through the muscle flap tissue in a transverse fashion over the inferior one third of the expanded area offsetting the incision from the skin incision. The roller setter was exposed and removed intact. The expansion cavity appeared normal. The expansion capsule was now released with the capsulotomy incision where the base of the capsule joined the chest wall with multiple cruciate incisions through the capsule. The patient's inframammary folds on the left and right side were both effaced. The fold was not reconstructed at this point, as attempt was made to insert several temporary breast implant sizers to determine if there was a possibility of obtaining an acceptable result. However, it was not possible after trying several implants to obtain any reasonable result for the purposes of breast reconstruction. At this point, the procedure plan proceeded with removal of the expanders on both sides. Since the left roller setter had been removed, the cavity was irrigated. Hemostasis was maintained with cautery and the cavity packed open with laparotomy pads. The right-sided roller setter was now removed. Incision was made through the mastectomy scar, dividing skin in full- thickness fashion, followed by cauterization to divide skin and subcutaneous tissue, exposing muscle flap tissue. A skin and subcutaneous tissue flap was raised inferiorly so the muscle flap tissue incision over the roller setter could be offset from the skin incision. Once this was completed, a transverse incision was made through the exposed muscle flap tissue area, exposing the roller setter. The roller setter was removed intact on the right side. Both expanders were ultimately discarded. There was no abnormal scar tissue on the right side. The frozen pathology evaluation of the scar tissue biopsy sent down was reported as scar tissue and no evidence of malignancy. The right- sided expansion capsule area was irrigated. Capsulotomy incision was made through the capsule as well as several cruciate incisions to release the tightness of the capsular structure. 19 round Melo channel drains were opened on the field, one for each side. They were inserted into the surgical field and brought out through separate stab incisions to the right and left anterolateral chest wall and sutured in place with 2-0 Prolene. The muscle flap tissue was then loosely approximated to the chest wall to help adhere this layer using interrupted 3-0 Vicryl sutures, and then the skin incisions on each side were closed in layers, approximating deep dermis using inverted interrupted 4-0 Monocryl followed by closure of superficial dermis and epidermis with running 5-0 Prolene. Drains were connected to closed bulb suction and patent at the end of the procedure. The surgical field was cleansed with saline. Postoperative bandages were placed using Kerlix gauze secured with 3M Medipore tape and positioning a size 4 mammary support with additional gauze padding to the anterior aspect. Applied gentle pressure over the closure sites. The patient was then awakened from her anesthetic, extubated and transferred to the recovery room in good condition with stable vital signs. The estimated blood loss was 50 mL. There were no complications. SHAGUFTA / RAPHAEL: [id number] / MARCE
== END | disposition home or self-care (01) ==
LOC: OR 08:12
PROVIDERS: ATTEND Plastic Surgery
DX: Z42.1 Encounter for breast reconstruction following mastectomy (principal); N64.1 Fat necrosis of breast; N61.0 Mastitis without abscess; Z85.3 Personal history of malignant neoplasm of breast; I10 Essential (primary) hypertension; I25.10 Atherosclerotic heart disease of native coronary artery without angina pectoris; Q21.1 Atrial septal defect; I48.0 Paroxysmal atrial fibrillation; E78.2 Mixed hyperlipidemia; K21.9 Gastro-esophageal reflux disease without esophagitis; Z82.49 Family history of ischemic heart disease and other diseases of the circulatory system; F17.200 Nicotine dependence, unspecified, uncomplicated; Z79.01 Long term (current) use of anticoagulants; Z79.899 Other long term (current) drug therapy; Z79.891 Long term (current) use of opiate analgesic
CPT/HCPCS: 88305; 80051; 85025; 88331; 11971; J0360; J1200; J1100; J2270; J2405; J1650; J3010; J0690

== ENCOUNTER 2018-03-19 15:15 | Inpatient (IN) | payer MEDICARE ==
[2018-03-19] MEDS ORDERED: ACETAMINOPHEN TAB 500 MG TAB PO STA (16:32)
[2018-03-19] MEDS ORDERED: PIPERACILLIN-TAZOBACTAM 3.375 GM in DEXTROSE/WATER 1 50ML.BAG IVPB STA (16:32)
[2018-03-19] MEDS ORDERED: IBUPROFEN 600 MG TAB PO STA (16:32)
--- NOTE | 2018-03-19 16:38 | ED ---
General Adult HPI - General Chief complaint: Fever Stated complaint: post surgical infection Time Seen by Provider: 03/19/18 15:15 Source: patient, EMS, RN notes reviewed Mode of arrival: EMS Limitations: no limitations - History of Present Illness Initial comments: This is a 77-year-old female presents emergency Department with previous bilateral mastectomies back in 2016 patient states the left side has an open wound which is been dressed regularly by a nurse. Patient states today she started not feeling well felt a little pain around the breast area but the wound itself did not look any worse than normal according to her nurse. Patient states she started having the chills because she was having a fever and decided to come emergency department. Patient denies any headache patient denies numbness weakness. Patient denies any lightheadedness or dizziness. Patient states she's not short of breath and aside from the pain around the open wound she is not having any chest pain. Patient denies any recent cough. Patient denies abdominal pain patient denies nausea vomiting diarrhea. Patient denies any dysuria hematuria urinary frequency. Patient denies any other lesions or redness or rashes on her body. - Related Data Home Medications Medication Instructions Recorded Confirmed Apixaban [Eliquis] 5 mg PO BID 11/24/16 03/19/18 Escitalopram [Lexapro] 10 mg PO DAILY 01/12/17 03/19/18 Losartan [Cozaar] 50 mg PO DAILY 12/13/17 03/19/18 Ferrous Sulfate [Feosol] 325 mg PO DAILY 12/14/17 03/19/18 Metoprolol Succinate (ER) [Toprol 100 mg PO DAILY 12/14/17 03/19/18 Xl] Atorvastatin Calcium [Lipitor] 10 mg PO HS 03/19/18 03/19/18 Fluticasone Nasal [place] [Flonase 1 spray EA NOSTRIL DAILY 03/19/18 03/19/18 Nasal [place]] Furosemide [Lasix] 20 mg PO DAILY 03/19/18 03/19/18 Allergies Allergy/AdvReac Type Severity Reaction Status Date / Time No Known Allergies Allergy Verified 03/19/18 15:45 Review of Systems ROS Statement: Those systems with pertinent positive or pertinent negative responses have been documented in the HPI. ROS Other: All systems not noted in ROS Statement are negative. 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 Bilateral mastectomy 09/22, bowel resection 10/2016, heart cath 12/13/17, tiff cataracts Past Anesthesia/Blood Transfusion Reactions: Previous Problems w/ Anesthesia, Postoperative Nausea & Vomiting (PONV) Additional Past Anesthesia/Blood Transfusion Reaction / Comment(s): PATIENT STATES HER TEETH IMPLANTS WERE DISLODGED DURING INTUBATION AND SHE SWALLOWED A TOOTH. Past Psychological History: No Psychological Hx Reported Smoking Status: Former smoker Past Alcohol Use History: None Reported Past Drug Use History: None Reported - Past Family History Mother Family Medical History: Diabetes Mellitus Father Family Medical History: Myocardial Infarction ([place]) Additional Family Medical History / Comment(s): heart problems Brother(s) Family Medical History: Cancer General Exam - General Exam Comments Initial Comments: GENERAL: Patient is well-developed and well-nourished. Patient is nontoxic and well- hydrated and is in mild distress. ENT: Neck is soft and supple. No significant lymphadenopathy is noted. Oropharynx is clear. Moist mucous membranes. Neck has full range of motion without eliciting any pain. EYES: The sclera were anicteric and conjunctiva were pink and moist. Extraocular movements were intact and pupils were equal round and reactive to light. Eyelids were unremarkable. PULMONARY: Unlabored respirations. Good breath sounds bilaterally. No audible rales rhonchi or wheezing was noted. CARDIOVASCULAR: There is a regular rate and rhythm without any murmurs gallops or rubs. ABDOMEN: Soft and nontender with normal bowel sounds. No palpable organomegaly was noted. There is no palpable pulsatile mass. SKIN: There is a small open wound on the left breast area which has packing coming out of it the area is mildly erythematous but according to the patient that's normal. NEUROLOGIC: Patient is alert and oriented x3. Cranial nerves II through XII are grossly intact. Motor and sensory are also intact. Normal speech, volume and content. Symmetrical smile. MUSCULOSKELETAL: Normal extremities with adequate strength and full range of motion. No lower extremity swelling or edema. No calf tenderness. LYMPHATICS: No significant lymphadenopathy is noted PSYCHIATRIC: Normal psychiatric evaluation. Limitations: no limitations Course Vital Signs 03/19/18 03/19/18 03/19/18 15:45 17:29 18:22 Temperature 102.5 F H 100.9 F H 98.8 F Pulse Rate 77 67 65 Respiratory 18 18 18 Rate Blood Pressure 142/64 101/53 109/57 O2 Sat by Pulse 89 L 93 L 98 Oximetry Medical Decision Making - Medical Decision Making EKG shows normal sinus rhythm at 66 bpm IN interval 150 QRS 110 QT interval 3: 30 QTC is 354. EKG shows no ST segment elevation Patient's troponin was mildly elevated. Patient was experiencing left-sided chest pain that was initially thought to be secondary to the infection but because of the elevated troponin she will be To cardiology will see her. I spoke with Dr. Patrick he agreed to admit the patient I wrote admitting orders. Chest x-ray shows no acute abnormality. CT of the chest shows no acute abnormality I spoke with Dr. Peterson she agreed to admit the patient admitted the patient wrote admitting orders - Lab Data Result diagrams: 03/19/18 16:10 03/19/18 16:10 Lab Results 03/19/18 03/19/18 03/19/18 Range/Units 16:10 16:10 16:10 WBC 9.2 (3.8-10.6) k/uL RBC 3.80 (3.80-5.40) m/uL Hgb 11.0 L (11.4-16.0) gm/dL Hct 34.1 (34.0-46.0) % MCV 89.6 (80.0-100.0) fL MCH 28.9 (25.0-35.0) pg MCHC 32.3 (31.0-37.0) g/dL RDW 15.3 (11.5-15.5) % Plt Count 274 (150-450) k/uL Neutrophils % 89 % Lymphocytes % 6 % Monocytes % 4 % Eosinophils % 1 % Basophils % 0 % Neutrophils # 8.2 H (1.3-7.7) k/uL Lymphocytes # 0.5 L (1.0-4.8) k/uL Monocytes # 0.4 (0-1.0) k/uL Eosinophils # 0.1 (0-0.7) k/uL Basophils # 0.0 (0-0.2) k/uL PT (9.0-12.0) sec INR (<1.2) APTT (22.0-30.0) sec Sodium 143 (137-145) mmol/L Potassium 4.3 (3.5-5.1) mmol/L Chloride 107 (98-107) mmol/L Carbon Dioxide 21 L (22-30) mmol/L Anion Gap 15 mmol/L BUN 13 (7-17) mg/dL Creatinine 1.00 (0.52-1.04) mg/dL Est GFR (CKD-EPI)AfAm 63 (>60 ml/min/1.73 sqM) Est GFR (CKD-EPI)NonAf 54 (>60 ml/min/1.73 sqM) Glucose 101 H (74-99) mg/dL Plasma Lactic Acid Deion 1.3 (0.7-2.0) mmol/L Calcium 9.1 (8.4-10.2) mg/dL Total Bilirubin 0.5 (0.2-1.3) mg/dL AST 24 (14-36) U/L ALT 27 (9-52) U/L Alkaline Phosphatase 101 (38-126) U/L Troponin I (0.000-0.034) ng/mL Total Protein 7.0 (6.3-8.2) g/dL Albumin 3.8 (3.5-5.0) g/dL Urine Color Urine Appearance (Clear) Urine pH (5.0-8.0) Ur Specific [place] (1.001-1.035) Urine Protein (Negative) Urine Glucose (UA) (Negative) Urine Ketones (Negative) Urine Blood (Negative) Urine Nitrite (Negative) Urine Bilirubin (Negative) Urine Urobilinogen (<2.0) mg/dL Ur Leukocyte Esterase (Negative) Urine RBC (0-5) /hpf Urine WBC (0-5) /hpf Ur Squamous Epith Cells (0-4) /hpf Urine Bacteria (None) /hpf Hyaline Casts (0-2) /lpf 03/19/18 03/19/18 03/19/18 Range/Units 16:10 16:10 16:10 WBC (3.8-10.6) k/uL RBC (3.80-5.40) m/uL Hgb (11.4-16.0) gm/dL Hct (34.0-46.0) % MCV (80.0-100.0) fL MCH (25.0-35.0) pg MCHC (31.0-37.0) g/dL RDW (11.5-15.5) % Plt Count (150-450) k/uL Neutrophils % % Lymphocytes % % Monocytes % % Eosinophils % % Basophils % % Neutrophils # (1.3-7.7) k/uL Lymphocytes # (1.0-4.8) k/uL Monocytes # (0-1.0) k/uL Eosinophils # (0-0.7) k/uL Basophils # (0-0.2) k/uL PT 10.6 (9.0-12.0) sec INR 1.1 (<1.2) APTT 26.2 (22.0-30.0) sec Sodium (137-145) mmol/L Potassium (3.5-5.1) mmol/L Chloride (98-107) mmol/L Carbon Dioxide (22-30) mmol/L Anion Gap mmol/L BUN (7-17) mg/dL Creatinine (0.52-1.04) mg/dL Est GFR (CKD-EPI)AfAm (>60 ml/min/1.73 sqM) Est GFR (CKD-EPI)NonAf (>60 ml/min/1.73 sqM) Glucose (74-99) mg/dL Plasma Lactic Acid [place] (0.7-2.0) mmol/L Calcium (8.4-10.2) mg/dL Total Bilirubin (0.2-1.3) mg/dL AST (14-36) U/L ALT (9-52) U/L Alkaline Phosphatase (38-126) U/L Troponin I 0.084 H* (0.000-0.034) ng/mL Total Protein (6.3-8.2) g/dL Albumin (3.5-5.0) g/dL Urine Color Light Yellow Urine Appearance Clear (Clear) Urine pH 6.5 (5.0-8.0) Ur Specific [place] 1.008 (1.001-1.035) Urine Protein Negative (Negative) Urine Glucose (UA) Negative (Negative) Urine Ketones Negative (Negative) Urine Blood Trace H (Negative) Urine Nitrite Negative (Negative) Urine Bilirubin Negative (Negative) Urine Urobilinogen <2.0 (<2.0) mg/dL Ur Leukocyte Esterase Negative (Negative) Urine RBC 7 H (0-5) /hpf Urine WBC 3 (0-5) /hpf Ur Squamous Epith Cells 1 (0-4) /hpf Urine Bacteria Few H (None) /hpf Hyaline Casts 3 H (0-2) /lpf Disposition Clinical Impression: Cellulitis of breast, Chest pain, Elevated troponin Disposition: ADMITTED IP TO THIS HOSP Referrals: Luisana Quintanilla MD [Primary Care Provider] - 1-2 days Time of Disposition: 19:57
[2018-03-19 16:47] LABS: Basophils % (A) 0 %; Eosinophils # (A) 0.1 k/uL (0-0.7); Eosinophils % (A) 1 %; HCT 34.1 % (34.0-46.0); Lymphocytes # (A) 0.5 k/uL (1.0-4.8); Lymphocytes % (A) 6 %; MCH 28.9 pg (25.0-35.0); MCHC 32.3 g/dL (31.0-37.0); MCV 89.6 fL (80.0-100.0); Mean Platelet Volume 6.6; Monocytes # (A) 0.4 k/uL (0-1.0); Monocytes % (A) 4 %; Neutrophils # (A) 8.2 k/uL (1.3-7.7); Neutrophils % (A) 89 %; Platelet Count 274 k/uL (150-450); RDW 15.3 % (11.5-15.5); WBC 9.2 k/uL (3.8-10.6)
[2018-03-19 16:53] LABS: Appearance,Urine Clear (Clear); Bacteria,Urine Few /hpf; Bilirubin,Urine Negative (Negative); Blood,Urine Trace (Negative); Color,Urine Light Yellow; Glucose,Urine (UA) Negative (Negative); Hyaline Casts,Urine 3 /lpf (0-2); Ketones,Urine Negative (Negative); Leukocyte Esterase,Urine Negative (Negative); Nitrite,Urine Negative (Negative); PH, Urine 6.5 (5.0-8.0); Protein,Urine Negative (Negative); RBC,Urine 7 /hpf (0-5); Specific Gravity,Urine 1.008 (1.001-1.035); Squamous Epithelial Cell,Urine 1 /hpf (0-4); Urobilinogen,Urine <2.0 mg/dL (<2.0); WBC,Urine 3 /hpf (0-5)
[2018-03-19 16:55] LABS: INR 1.1 (<1.2); Partial Thromboplastin Time 26.2 sec (22.0-30.0); Prothrombin Time 10.6 sec (9.0-12.0)
--- NOTE | 2018-03-19 16:59 | XR ---
EXAMINATION TYPE: XR chest 2V DATE OF EXAM: 03/19/2018 COMPARISON: 01/09/2018 HISTORY: Chest pain TECHNIQUE: Frontal and lateral views of the chest are obtained. FINDINGS: There is no heart failure nor confluent pneumonic infiltrate. Thoracic aorta is atheromato us. There is no pleural effusion. Bony thorax is intact. There is slight anterior wedging of one or 2 mid thoracic vertebra. IMPRESSION: No active cardiopulmonary disease. No change.
[2018-03-19 17:01] LABS: Albumin 3.8 g/dL (3.5-5.0); Calcium 9.1 mg/dL (8.4-10.2); Potassium 4.3 mmol/L (3.5-5.1); Total Bilirubin 0.5 mg/dL (0.2-1.3)
[2018-03-19] MEDS: SODIUM CHLORIDE 0.9% 500 ML IV SCH (17:30)
[2018-03-19] MEDS ORDERED: RX INFO: IV CONTRAST WAS GIVEN 1 EACH MISC MISCELLANE PRN (17:45)
--- NOTE | 2018-03-19 19:18 | CT ---
EXAMINATION TYPE: CT chest w con DATE OF EXAM: 03/19/2018 COMPARISON: 12/27/2016 HISTORY: Fever, Breast Sx x1 month ago CT DLP: 720 mGycm Automated exposure control for dose reduction was used. CONTRAST: CT scan of the chest is performed with IV Contrast, patient injected with 100 mL of Isovue 300. FINDINGS: There is mild linear density at the lung bases. There is no evidence of a pulmonary mass. There is no pleural effusion. There is no pericardial effusion. Thoracic aorta is atheromatous. There is soft ti ssue air bubbles related to left breast surgery. There are no hilar masses. There is no mediastinal a denopathy. There is anterior wedging of T9 and T8 vertebra with up to 40% loss of height. There is cl earing of pleural fluid compared to old exam. This probably relates to osteoporosis. IMPRESSION: Left breast surgery. There is been removal of the left breast implant compared to old ex am. Right breast implant is also removed. Atherosclerotic vascular disease. There are new compression fractures in the thoracic spine compared to old exam. No evidence of an abscess. Cardiomegaly. Minimal subsegmental atelectasis at the lung bases.
[2018-03-19] MEDS ORDERED: ASPIRIN 81 MG PO STA (19:57)
[2018-03-19] MEDS ORDERED: NITROGLYCERIN SL TABS 0.4 MG TAB SUBLINGUAL PRN (19:57)
[2018-03-19] MEDS: ATORVASTATIN 10 MG TAB PO SCH (22:05)
[2018-03-19] MEDS: APIXABAN 5 MG TAB PO SCH (22:24)
[2018-03-19 23:40] LABS: Creatine Kinase MB 0.6 ng/mL (0.0-2.4)
[2018-03-19 23:47] VITALS: BMI 29.0
[2018-03-19 23:49] LABS: Troponin I 0.315 ng/mL (0.000-0.034)
[2018-03-19] MEDS: NITROGLYCERIN OINT 1 INCH/GM PACKET TOPICAL SCH (23:53)
[2018-03-20 05:13] LABS: Cholesterol 100 mg/dL (<200); HDL Cholesterol 46 mg/dL (40-60); LDL Cholesterol,Calculated 41 mg/dL (0-99); Triglycerides 66 mg/dL (<150)
[2018-03-20 05:46] LABS: Creatine Kinase MB 0.7 ng/mL (0.0-2.4)
[2018-03-20 05:50] LABS: Troponin I 0.154 ng/mL (0.000-0.034)
[2018-03-20] MEDS ORDERED: VANCOMYCIN 1,500 MG in SODIUM CHLORIDE 0.9% 250 ML IVPB SCH (06:00)
[2018-03-20] MEDS: NITROGLYCERIN OINT 1 INCH/GM PACKET TOPICAL SCH (06:14)
[2018-03-20] MEDS: SODIUM CHLORIDE 0.9% 1,000 ML IV SCH ×2 (06:15→12:51)
--- NOTE | 2018-03-20 08:24 | P.CRDCN ---
History of Present Illness Consult date: 03/20/18 Requesting physician: Stu Peterson Consult reason: chest pain Chief complaint: Chills History of present illness: This is a 77-year-old female who follows with Dr. Lopez in the office. She has a history of hypertension, family history of coronary artery disease, hyperlipidemia, percutaneous closure of ASD in 2005 at [facility], paroxysmal atrial fibrillation, patient also underwent a cardiac catheterization in December of this year which revealed mild coronary artery disease with mild pulmonary hypertension and normal left ventricular systolic function, history of a GI bleed, patient also has breast cancer for which she recently underwent removal of expanders in both of her breasts, visiting nurse has been coming out to her house to change the dressings. Patient states that she had been experiencing severe chills and shaking, with some sharp atypical chest pains and for this reason was advised to come to the hospital for further evaluation. Temperature on arrival here 102.5, 89% on room air, blood pressure 142/60 with a heart rate in the 70s. Pressure this morning 116/50 with a heart rate in the 50s, temperature 90.7, she is 99% on 2 L of oxygen. White blood cell count is normal, hemoglobin 11, platelet count 274. Sodium 143, potassium 4.3, BUN 13, creatinine 1.0. Troponins 0.08, 0.31, 0.15. Cholesterol 100, triglycerides 66, LDL 41, HDL 46. EKG on arrival here showed a normal sinus rhythm with incomplete right bundle branch block pattern and nonspecific ST-T wave changes. Chest x-ray did not reveal any active cardiopulmonary disease. 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 No evidence of any abscess. No pulmonary mass, no pleural effusion, no pericardial effusion. At the time of my examination this morning, patient feels tired, denies any chest discomfort in her breathing is stable. 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 Bilateral mastectomy 09/22, bowel resection 10/2016, heart cath 12/13/17, tiff cataracts Past Anesthesia/Blood Transfusion Reactions: Previous Problems w/ Anesthesia, Postoperative Nausea & Vomiting (PONV) Additional Past Anesthesia/Blood Transfusion Reaction / Comment(s): PATIENT STATES HER TEETH IMPLANTS WERE DISLODGED DURING INTUBATION AND SHE SWALLOWED A TOOTH. Past Psychological History: No Psychological Hx Reported Smoking Status: Former smoker Past Alcohol Use History: None Reported Additional Past Alcohol Use History / Comment(s): Quit in 1984, smoked less than 1/2 PPD for 25 yrs. Past Drug Use History: None Reported - Past Family History Mother Family Medical History: Diabetes Mellitus Father Family Medical History: Myocardial Infarction ([place]) Additional Family Medical History / Comment(s): heart problems Brother(s) Family Medical History: Cancer Medications and Allergies Home Medications Medication Instructions Recorded Confirmed Type Apixaban [Eliquis] 5 mg PO BID 11/24/16 03/19/18 History Escitalopram [Lexapro] 10 mg PO DAILY 01/12/17 03/19/18 History Losartan [Cozaar] 50 mg PO DAILY 12/13/17 03/19/18 History Ferrous Sulfate [Feosol] 325 mg PO DAILY 12/14/17 03/19/18 History Metoprolol Succinate (ER) [Toprol 100 mg PO DAILY 12/14/17 03/19/18 History Xl] Atorvastatin Calcium [Lipitor] 10 mg PO HS 03/19/18 03/19/18 History Fluticasone Nasal [place] [Flonase 1 spray EA NOSTRIL DAILY 03/19/18 03/19/18 History Nasal [place]] Furosemide [Lasix] 20 mg PO DAILY 03/19/18 03/19/18 History Allergies Allergy/AdvReac Type Severity Reaction Status Date / Time No Known Allergies Allergy Verified 03/19/18 15:45 Physical Exam Vitals: Vital Signs Temp Pulse Pulse Resp BP BP Pulse Ox 03/20/18 04:00 97.0 F L 52 L 18 116/55 99 03/19/18 23:30 96.9 F L 50 L 18 101/51 99 03/19/18 23:00 97.7 F 03/19/18 22:54 50 L 18 100/59 98 03/19/18 22:25 97.6 F 53 L 18 95/54 99 03/19/18 21:20 54 L 18 98/48 98 03/19/18 20:17 56 L 18 97/49 98 03/19/18 18:22 98.8 F 65 18 109/57 98 03/19/18 17:29 100.9 F H 67 18 101/53 93 L 03/19/18 15:45 102.5 F H 77 18 142/64 89 L Intake and Output 03/19/18 03/20/18 03/20/18 22:59 06:59 14:59 Other: Voiding Method Toilet # Voids 1 Weight 86.636 kg 94.3 kg PHYSICAL EXAMINATION: GENERAL: 77-year-old female in no apparent distress at this time of examination. HEENT: Head is atraumatic, normocephalic. Pupils equal, round. Sclera anicteric. Conjunctiva are clear. Mucous membranes of the mouth are moist. Neck is supple. There is no elevated jugular venous pressure.] bruit is heard. HEART EXAMINATION: Heart S1, S2 normal. No murmur or gallop heard. CHEST EXAMINATION: Lungs are clear to auscultation and precussion. No chest wall tenderness is noted on palpation or with deep breathing. Dressings in place to right and left breast areas, dry and intact ABDOMEN: Soft, nontender. Bowel sounds are heard. No organomegaly noted. EXTREMITIES:[ 2+ peripheral pulses with no evidence of peripheral edema and no calf tenderness noted]. NEUROLOGIC [patient is awake, alert and oriented -3.] . Results 03/19/18 16:10 03/19/18 16:10 Cardiac Enzymes 03/19/18 03/19/18 03/19/18 Range/Units 16:10 16:10 22:24 AST 24 (14-36) U/L CK-MB (CK-2) 0.6 (0.0-2.4) ng/mL Troponin I 0.084 H* 0.315 H* (0.000-0.034) ng/mL 03/20/18 Range/Units 04:41 AST (14-36) U/L CK-MB (CK-2) 0.7 (0.0-2.4) ng/mL Troponin I 0.154 H* (0.000-0.034) ng/mL Coagulation 03/19/18 Range/Units 16:10 PT 10.6 (9.0-12.0) sec APTT 26.2 (22.0-30.0) sec Lipids 03/20/18 Range/Units 04:41 Triglycerides 66 (<150) mg/dL Cholesterol 100 (<200) mg/dL HDL Cholesterol 46 (40-60) mg/dL CBC 03/19/18 Range/Units 16:10 WBC 9.2 (3.8-10.6) k/uL RBC 3.80 (3.80-5.40) m/uL Hgb 11.0 L (11.4-16.0) gm/dL Hct 34.1 (34.0-46.0) % Plt Count 274 (150-450) k/uL Comprehensive Metabolic Panel 03/19/18 Range/Units 16:10 Sodium 143 (137-145) mmol/L Potassium 4.3 (3.5-5.1) mmol/L Chloride 107 (98-107) mmol/L Carbon Dioxide 21 L (22-30) mmol/L BUN 13 (7-17) mg/dL Creatinine 1.00 (0.52-1.04) mg/dL Glucose 101 H (74-99) mg/dL Calcium 9.1 (8.4-10.2) mg/dL AST 24 (14-36) U/L ALT 27 (9-52) U/L Alkaline Phosphatase 101 (38-126) U/L Total Protein 7.0 (6.3-8.2) g/dL Albumin 3.8 (3.5-5.0) g/dL Current Medications Generic Name Dose Route Start Last Admin Trade Name Freq PRN Reason Stop Dose Admin Apixaban 5 mg 03/19/18 21:00 03/19/18 22:24 Eliquis PO 5 mg BID AZEEM Administration Aspirin 325 mg 03/20/18 09:00 Aspirin PO DAILY AZEEM Atorvastatin Calcium 10 mg 03/19/18 21:00 03/19/18 22:05 Lipitor PO 10 mg HS AZEEM Administration Escitalopram Oxalate 10 mg 03/20/18 09:00 Lexapro PO DAILY [facility] Ferrous Sulfate 325 mg 03/20/18 09:00 Feosol PO DAILY [facility] Fluticasone Propionate 1 spray 03/20/18 09:00 Flonase Nasal [place] EA NOSTRIL DAILY [facility] Furosemide 20 mg 03/20/18 09:00 Lasix PO DAILY AZEEM Sodium Chloride 1,000 mls @ 100 mls/hr 03/20/18 05:45 03/20/18 06:15 Saline 0.9% IV 100 mls/hr .Q10H AZEEM Administration Vancomycin HCl 1,500 mg/ 250 mls @ 125 mls/hr 03/20/18 06:00 03/20/18 06:15 Sodium Chloride IVPB 125 mls/hr Q24H AZEEM Administration Losartan Potassium 50 mg 03/20/18 09:00 Cozaar PO DAILY AZEEM Metoprolol Succinate 100 mg 03/20/18 09:00 Toprol Xl PO DAILY [facility] Miscellaneous Information 1 each 03/19/18 17:45 03/19/18 22:25 Rx Info: Iv Contrast Was Given MISCELLANE 03/21/18 17:48 1 each DAILY PRN Administration Per Protocol Nitroglycerin 1 inch 03/20/18 00:00 03/20/18 06:14 Nitro-Bid Oint TOPICAL Not Given Q6HR [facility] Nitroglycerin 0.4 mg 03/19/18 19:57 Nitrostat SUBLINGUAL Q5M PRN Chest Pain Intake and Output 03/19/18 03/20/18 03/20/18 22:59 06:59 14:59 Other: Voiding Method Toilet # Voids 1 Weight 86.636 kg 94.3 kg 03/19/18 16:10 03/19/18 16:10 EKG Interpretations (text) EKG normal sinus rhythm with right bundle branch block pattern nonspecific ST-T wave changes Assessment and Plan Plan: Assessment and plan #1 symptoms of chills and shaking, evidence of either on admission with temperature of 102.5. Sepsis. Blood culture positive for gram-positive cocci. #2 recent surgery for removal of expanders in the right and left breast #3 hypertension #4 hyperlipidemia 3. Percutaneous closure of ASD in 2005 #6 history of prior paroxysmal atrial fibrillation #7 history of severe GI bleed with subsequent colectomy at [facility] #8 atypical chest pain, sharp stabbing in nature, troponins 0.084, 0.31, 0.15. Patient did undergo a cardiac catheterization in December of this year which revealed mild coronary artery disease with normal LV function Plan Repeat echocardiogram with Doppler study has been requested. Patient has also been started on IV antibiotics. We will decrease her aspirin to 81 mg daily, continue Eliquis, Lipitor, metoprolol, losartan. Further recommendations to follow. DNP note has been reviewed, I agree with a documented findings and plan of care. Patient was seen and examined.
[2018-03-20] MEDS ORDERED: ASPIRIN 325 MG TAB PO SCH (09:00)
[2018-03-20] MEDS: ESCITALOPRAM 10 MG TAB PO SCH (09:27)
[2018-03-20] MEDS: FUROSEMIDE 20 MG TAB PO SCH (09:27)
[2018-03-20] MEDS: METOPROLOL SUCCINATE (ER) 100 MG TAB.ER.24H PO SCH (09:28)
[2018-03-20] MEDS: FERROUS SULFATE 325 MG TAB PO SCH (09:28)
[2018-03-20] MEDS: LOSARTAN 50 MG TAB PO SCH (09:28)
[2018-03-20] MEDS ORDERED: VANCOMYCIN IV PER PHARMACY 1 EACH MISC MISCELLANE ONE (09:30)
[2018-03-20] MEDS: APIXABAN 5 MG TAB PO SCH ×2 (09:33→22:11)
[2018-03-20] MEDS: FLUTICASONE 50MCG/SPRAY NASAL 16GM EA NOSTRIL SCH (09:33)
[2018-03-20] MEDS: ASPIRIN 81 MG PO SCH (09:33)
[2018-03-20] MEDS: ACETAMINOPHEN TAB 325 MG TAB PO PRN ×2 (11:04→22:11)
--- NOTE | 2018-03-20 11:25 | ECHOF ---
Referral Reason:Chest pain MEASUREMENTS -------- HEIGHT: 172.7 cm WEIGHT: 86.2 kg BP: 116/55 IVSd: 1.5 cm (0.6 - 1.1) LVIDd: 4.4 cm (3.9 - 5.3) LVPWd: 1.7 cm (0.6 - 1.1) IVSs: 1.6 cm LVIDs: 2.1 cm LVPWs: 2.5 cm Ao Diam: 3.6 cm (2.0 - 3.7) AV Cusp: 2.4 cm (1.5 - 2.6) LA Diam: 4.1 cm (2.7 - 3.8) MV EXCURSION: 23.124 mm (> 18.000) MV EF SLOPE: 49 mm/s (70 - 150) EPSS: 0.6 cm MV E Konrad: 0.47 m/s MV DecT: 215 ms MV A Konrad: 0.42 m/s MV E/A Ratio: 1.14 RAP: 5.00 mmHg RVSP: 60.39 mmHg FINDINGS -------- Sinus rhythm. This was a technically difficult study with suboptimal views. Pt has breast removed and has infecti on. Study taken from subcoastals. The left ventricular size is normal. There is moderate concentric left ventricular hypertrophy. O verall left ventricular systolic function is normal with, an EF between 55 - 60 %. The right ventricle is normal in size and function. The left atrium is normal in size. The right atrium is normal in size. The aortic valve is trileaflet, and appears structurally normal. No aortic stenosis or regurgitation. The mitral valve leaflets are mildly thickened. Mild mitral annular calcification present. Mild m itral regurgitation is present. Moderate tricuspid regurgitation present. There is moderate pulmonary hypertension. The right maryellen tricular systolic pressure, as measured by Doppler, is 60.39mmHg. Pulmonic valve appears structurally normal. The aortic root, ascending aorta and aortic arch are normal. Normal inferior vena cava with normal inspiratory collapse consistent with estimated right atrial pre ssure of 5 mmHg. There is no pericardial effusion. CONCLUSIONS -------- 1. Sinus rhythm. 2. This was a technically difficult study with suboptimal views. 3. Pt has breast removed and has infection. Study taken from subcoastals. 4. The left ventricular size is normal. 5. There is moderate concentric left ventricular hypertrophy. 6. Overall left ventricular systolic function is normal with, an EF between 55 - 60 %. 7. The right ventricle is normal in size and function. 8. The left atrium is normal in size. 9. The right atrium is normal in size. 10. The aortic valve is trileaflet, and appears structurally normal. No aortic stenosis or regurgitat ion. 11. The mitral valve leaflets are mildly thickened. 12. Mild mitral annular calcification present. 13. Mild mitral regurgitation is present. 14. Moderate tricuspid regurgitation present. 15. There is moderate pulmonary hypertension. 16. The right ventricular systolic pressure, as measured by Doppler, is 60.39mmHg. 17. Pulmonic valve appears structurally normal. 18. The aortic root, ascending aorta and aortic arch are normal. 19. Normal inferior vena cava with normal inspiratory collapse consistent with estimated right atrial pressure of 5 mmHg. 20. There is no pericardial effusion. VP PRODUCT: Kelly Anderson RDCS
--- NOTE | 2018-03-20 11:42 | P.HPIM ---
History of Present Illness H&P Date: 03/20/18 Chief Complaint: Chills, sharp left-sided chest pain This is a 77-year-old female patient of Dr. 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 Patient states she had breast surgery done by Dr. Hoffmann at [facility]. (She does not know surgeon's full name) . She states one pavilion cutter did not work and both expanders have been removed. She states that it all started after she had a fall in her laundry room at home and the drain came out on the left breast and it has been packed ever since. She has had ongoing wound on the left side that is been packed for at least the past month and maybe 2 months. She has a slight pink yellow drainage that has been chronic and she states unchanged and the wound has closed to not being very small. She has home care in place and the wound is packed every other day. Her nurse apparently has not noticed any change in her wound. She developed chills yesterday after her nurse left. She also had left-sided sharp chest pain. She came into [facility] emergency center for evaluation. She was found to have a temperature of 102.5, normal pulse and blood pressure. White count was 9.2. EKG was a sinus rhythm with no acute ST changes. Lactic acid was 1.3, initial troponin 0.084. Urinalysis was clear with nitrate and leukoesterase negative. Chest x-ray showed no acute cardiopulmonary process. CT of the chest revealed left breast surgery. There has been removal of the left breast implant compared to old exam. Right breast implant is also removed. Atherosclerotic vascular disease. There are new compression fractures in the thoracic spine compared to old exam. No evidence of abscess. Cardiomegaly. Minimal subsegmental atelectasis at the lung bases. Patient was started on Zosyn and vancomycin, serial troponins ordered and cardiology consult and patient was admitted to the selective care unit. Subsequently, patient has been seen by cardiology. She has had a recent heart catheterization in December of this year that revealed mild coronary artery disease with normal LV function. Repeat troponins were 0.31 and 0.15. Echocardiogram has been ordered. Patient has 3 sets of blood cultures obtained on March 19 that are positive for gram-positive cocci. A consult has been added with Dr. Martinez. Her chest pain has been completely gone since presentation. Review of Systems All systems: negative Constitutional: Reports chills, Reports fever, Reports poor appetite Eyes: denies blurred vision, denies pain Ears, nose, mouth and throat: Denies dental pain, Denies headache, Denies mouth pain, Denies sore throat Breasts: left: skin changes Cardiovascular: Denies chest pain, Denies decreased exercise tolerance, Denies dyspnea on exertion, Denies edema, Denies leg edema, Denies lightheadedness, Denies shortness of breath, Denies syncope Respiratory: Denies cough Gastrointestinal: Denies abdominal pain, Denies diarrhea, Denies nausea, Denies vomiting Genitourinary: Denies dysuria, Denies hematuria, Denies urgency, Denies urinary frequency Musculoskeletal: Denies gait dysfunction, Denies myalgias Integumentary: Reports darkening of skin, Reports wounds, Denies pruritus, Denies rash Neurological: Denies confusion, Denies numbness, Denies weakness Psychiatric: Denies anxiety, Denies depression Endocrine: Denies fatigue, Denies weight change Past Medical History Past Medical History: Atrial Fibrillation, Cancer, GERD/Reflux, Hyperlipidemia, Hypertension Additional Past Medical History / Comment(s): Hx Breast Cancer 09/22, hx ischemic bowel with bowel rupture 10/24 History of Any Multi-Drug Resistant Organisms: Other MDRO Past Surgical History: Bowel Resection, Breast Surgery, Heart Catheterization, Orthopedic Surgery Additional Past Surgical History / Comment(s): LEFT rotator cuff repair,. Bilateral mastectomy 09/22, bowel resection 10/2016, heart cath 12/13/17, tiff cataracts Past Anesthesia/Blood Transfusion Reactions: Previous Problems w/ Anesthesia, Postoperative Nausea & Vomiting (PONV) Additional Past Anesthesia/Blood Transfusion Reaction / Comment(s): PATIENT STATES HER TEETH IMPLANTS WERE DISLODGED DURING INTUBATION AND SHE SWALLOWED A TOOTH. Past Psychological History: No Psychological Hx Reported Smoking Status: Former smoker Past Alcohol Use History: None Reported Additional Past Alcohol Use History / Comment(s): Quit in 1984, smoked less than 1/2 PPD for 25 yrs. Patient is currently residing at home but previous to that received rehab at [facility]. Past Drug Use History: None Reported - Past Family History Mother Family Medical History: Diabetes Mellitus Father Family Medical History: Myocardial Infarction ([place]) Additional Family Medical History / Comment(s): heart problems Brother(s) Family Medical History: Cancer Medications and Allergies Home Medications Medication Instructions Recorded Confirmed Type Apixaban [Eliquis] 5 mg PO BID 11/24/16 03/19/18 History Escitalopram [Lexapro] 10 mg PO DAILY 01/12/17 03/19/18 History Losartan [Cozaar] 50 mg PO DAILY 12/13/17 03/19/18 History Ferrous Sulfate [Feosol] 325 mg PO DAILY 12/14/17 03/19/18 History Metoprolol Succinate (ER) [Toprol 100 mg PO DAILY 12/14/17 03/19/18 History Xl] Atorvastatin Calcium [Lipitor] 10 mg PO HS 03/19/18 03/19/18 History Fluticasone Nasal [place] [Flonase 1 spray EA NOSTRIL DAILY 03/19/18 03/19/18 History Nasal [place]] Furosemide [Lasix] 20 mg PO DAILY 03/19/18 03/19/18 History Allergies Allergy/AdvReac Type Severity Reaction Status Date / Time No Known Allergies Allergy Verified 03/19/18 15:45 Physical Exam Vitals: Vital Signs Temp Pulse Pulse Resp BP BP Pulse Ox 03/20/18 04:00 97.0 F L 52 L 18 116/55 99 03/19/18 23:30 96.9 F L 50 L 18 101/51 99 03/19/18 23:00 97.7 F 03/19/18 22:54 50 L 18 100/59 98 03/19/18 22:25 97.6 F 53 L 18 95/54 99 03/19/18 21:20 54 L 18 98/48 98 03/19/18 20:17 56 L 18 97/49 98 03/19/18 18:22 98.8 F 65 18 109/57 98 03/19/18 17:29 100.9 F H 67 18 101/53 93 L 03/19/18 15:45 102.5 F H 77 18 142/64 89 L Intake and Output 03/19/18 03/20/18 03/20/18 22:59 06:59 14:59 Other: Voiding Method Toilet # Voids 1 Weight 86.636 kg 94.3 kg Gen: This is a 77-year-old female. She is in bed and appears to be comfortable and in no acute distress. HEENT: Head is atraumatic, normocephalic. Pupils equal, round. Sclerae is anicteric. Conjunctiva pink. Mucous members of the mouth are moist. NECK: Supple. No JVD. No lymphadenopathy. No thyromegaly. LUNGS: Clear to auscultation. No wheezes or rhonchi. No intercostal retractions. HEART: Regular rate and rhythm. No murmur. BREAST: To the left breast, dressing was removed. Noted to have serosanguineous with slight yellow tinge on the dressing. There is packing in place. She has a small open area to the medial side. There is surrounding erythema to the breast tissue and extends under what would be the breast fold and into the axilla area. Right breast has healed surgical wound. There is a small dressing in place that is just a dry type. No open area. There is mild erythema just at the site but no tenderness. ABDOMEN: Soft. Bowel sounds are present. No masses. No tenderness. EXTREMITIES: No pedal edema. No calf tenderness. NEUROLOGICAL: Patient is awake, alert and oriented x3. Cranial nerves 2 through 12 are grossly intact. Results CBC & Chem 7: 03/19/18 16:10 03/19/18 16:10 Labs: Abnormal Lab Results - Last 24 Hours (Table) 03/19/18 03/19/18 03/19/18 Range/Units 16:10 16:10 16:10 Hgb 11.0 L (11.4-16.0) gm/dL Neutrophils # 8.2 H (1.3-7.7) k/uL Lymphocytes # 0.5 L (1.0-4.8) k/uL Carbon Dioxide 21 L (22-30) mmol/L Glucose 101 H (74-99) mg/dL Troponin I (0.000-0.034) ng/mL Urine Blood Trace H (Negative) Urine RBC 7 H (0-5) /hpf Urine Bacteria Few H (None) /hpf Hyaline Casts 3 H (0-2) /lpf 03/19/18 03/19/18 03/20/18 Range/Units 16:10 22:24 04:41 Hgb (11.4-16.0) gm/dL Neutrophils # (1.3-7.7) k/uL Lymphocytes # (1.0-4.8) k/uL Carbon Dioxide (22-30) mmol/L Glucose (74-99) mg/dL Troponin I 0.084 H* 0.315 H* 0.154 H* (0.000-0.034) ng/mL Urine Blood (Negative) Urine RBC (0-5) /hpf Urine Bacteria (None) /hpf Hyaline Casts (0-2) /lpf Microbiology - Last 24 Hours (Table) 03/19/18 16:00 Blood Culture Gram Stain - Preliminary Blood 03/19/18 16:34 Blood Culture Gram Stain - Preliminary Blood 03/19/18 16:00 Blood Culture - Final Blood 03/19/18 16:10 Blood Culture - Final Blood 03/19/18 16:10 Urine Culture - Preliminary Urine,Voided Thrombosis Risk Factor Assmnt - DVT/VTE Prophylaxis DVT/VTE Prophylaxis: Pharmacologic Prophylaxis ordered - Choose All That Apply Any of the Below Risk Factors Present?: Yes Each Factor Represents 1 point: Obesity (BMI >25) Other Risk Factors: Yes Each Risk Factor Represents 3 Points: Age 75 years or older Thrombosis Risk Factor Assessment Total Risk Factor Score: 4 Thrombosis Risk Factor Assessment Level: Moderate Risk Assessment and Plan Plan: 1. Sepsis secondary to left breast cellulitis. No abscess was seen on CAT scan. Patient is currently on IV antibiotics the form of vancomycin and Zosyn. Consult with Dr. Martinez. Patient's surgeon is at [facility]. 2. Sharp left-sided chest pain possibly related to left breast cellulitis. Cardiology consult is appreciated. Echocardiogram is pending. No plan for any further intervention as patient had a recent heart catheterization that showed minimal coronary artery disease done in December of this year. 3. Hypertension. Continue losartan 50 mg daily and Toprol-XL 100 mg daily. 4. Hyperlipidemia. Continue atorvastatin 10 mg daily at bedtime. 5. Paroxysmal atrial fibrillation. Continue eliquis 5 mg twice daily, aspirin 81 mg daily, Toprol-XL 100 mg daily. 6. History of ischemic bowel status post exploratory laparotomy and hemicolectomy at [facility], stable. 7. History of atrial septal defect with closure in 2006 at [facility]. 8. DVT prophylaxis. Patient is on eliquis. 9. Gastrointestinal prophylaxis. Pepcid. 10. Pulmonary prophylaxis. Incentive spirometry. Patient will be admitted to the hospital for a minimum of 3 night stay. Discharge plan: To be determined. We will add in PT and OT evaluations. Patient has been at [facility] in the past. Impression and plan of care have been directed as dictated by the signing physician. Mayi Lindsay nurse practitioner acting as scribe for signing physician.
--- NOTE | 2018-03-20 11:50 | P.CONS ---
History of Present Illness - Reason for Consult Consult date: 03/20/18 Cellulitis left breast - History of Present Illness This is a 77-year-old female patient with past medical history significant for breast cancer status post bilateral mastectomy and placement of expanders subsequently removed. Patient states she had breast surgery done by Dr. Hoffmann at [facility]. (She does not know surgeon's full name). She states one specification manager did not work and both expanders have been subsequently removed. She states that it all started after she had a fall in her laundry room at home and the drain came out on the left breast and it has been packed ever since. She has had ongoing wound on the left side that is been packed for at least the past month and maybe 2 months. She has a slight pink yellow drainage that has been chronic and she states unchanged and the wound has closed to not being very small. She has home care in place and the wound is packed every other day. Her nurse apparently has not noticed any change in her wound. She developed chills yesterday after her nurse left. She also had left-sided sharp chest pain. She came into [facility] emergency center for evaluation. She was found to have a temperature of 102.5, normal pulse and blood pressure. White count was 9.2. EKG was a sinus rhythm with no acute ST changes. Lactic acid was 1.3, initial troponin 0.084. Urinalysis was clear with nitrate and leukoesterase negative. Chest x-ray showed no acute cardiopulmonary process. CT of the chest revealed left breast surgery. There has been removal of the left breast implant compared to old exam. Right breast implant is also removed. Atherosclerotic vascular disease. There are new compression fractures in the thoracic spine compared to old exam. No evidence of abscess. Cardiomegaly. Minimal subsegmental atelectasis at the lung bases. Patient was started on Zosyn and vancomycin, serial troponins ordered and cardiology consult and patient was admitted to the selective care unit. Patient was evaluated by cardiology and she had a recent heart catheterization in December of this year that revealed mild coronary artery disease with normal LV function. Repeat troponins were 0.31 and 0.15. Echocardiogram has been ordered. Patient has 3 sets of blood cultures obtained on March 19 that are positive for gram-positive cocci. Review of Systems All systems: negative Constitutional: Reports chills, Reports fever, Reports poor appetite Eyes: denies blurred vision, denies pain Ears, nose, mouth and throat: Denies dental pain, Denies headache, Denies mouth pain, Denies sore throat, Denies vertigo Breasts: left: skin changes, absent: pain Cardiovascular: Denies chest pain, Denies decreased exercise tolerance, Denies dyspnea on exertion, Denies edema, Denies leg edema, Denies lightheadedness, Denies shortness of breath, Denies syncope Respiratory: Denies cough, Denies cough with sputum, Denies dyspnea, Denies excessive sputum, Denies hemoptysis, Denies home oxygen, Denies wheezing Gastrointestinal: Reports loss of appetite, Denies abdominal pain, Denies diarrhea, Denies nausea, Denies vomiting Genitourinary: Denies dysuria, Denies hematuria, Denies urgency, Denies urinary frequency Musculoskeletal: Denies myalgias Integumentary: Reports color changes, Reports darkening of skin, Reports wounds , Denies pruritus, Denies rash Neurological: Denies numbness, Denies weakness Psychiatric: Denies anxiety, Denies depression Endocrine: Denies fatigue, Denies weight change Past Medical History Past Medical History: Atrial Fibrillation, Cancer, GERD/Reflux, Hyperlipidemia, Hypertension Additional Past Medical History / Comment(s): Hx Breast Cancer 09/22, hx ischemic bowel with bowel rupture 10/24 History of Any Multi-Drug Resistant Organisms: Other MDRO Past Surgical History: Bowel Resection, Breast Surgery, Heart Catheterization, Orthopedic Surgery Additional Past Surgical History / Comment(s): LEFT rotator cuff repair,. Bilateral mastectomy 09/22, bowel resection 10/2016, heart cath 12/13/17, tiff cataracts Past Anesthesia/Blood Transfusion Reactions: Previous Problems w/ Anesthesia, Postoperative Nausea & Vomiting (PONV) Additional Past Anesthesia/Blood Transfusion Reaction / Comm: PATIENT STATES HER TEETH IMPLANTS WERE DISLODGED DURING INTUBATION AND SHE SWALLOWED A TOOTH. Past Psychological History: No Psychological Hx Reported Smoking Status: Former smoker Past Alcohol Use History: None Reported Additional Past Alcohol Use History / Comment(s): Quit in 1984, smoked less than 1/2 PPD for 25 yrs. Past Drug Use History: None Reported - Past Family History Mother Family Medical History: Diabetes Mellitus Father Family Medical History: Myocardial Infarction ([place]) Additional Family Medical History / Comment(s): heart problems Brother(s) Family Medical History: Cancer Medications and Allergies Home Medications Medication Instructions Recorded Confirmed Type RX: Apixaban [Eliquis] 5 mg PO BID 11/24/16 03/19/18 History RX: Escitalopram [Lexapro] 10 mg PO DAILY 01/12/17 03/19/18 History Losartan [Cozaar] 50 mg PO DAILY 12/13/17 03/19/18 History Ferrous Sulfate [Feosol] 325 mg PO DAILY 12/14/17 03/19/18 History Metoprolol Succinate (ER) [Toprol 100 mg PO DAILY 12/14/17 03/19/18 History Xl] Atorvastatin Calcium [Lipitor] 10 mg PO HS 03/19/18 03/19/18 History Fluticasone Nasal [place] [Flonase 1 spray EA NOSTRIL DAILY 03/19/18 03/19/18 History Nasal [place]] Furosemide [Lasix] 20 mg PO DAILY 03/19/18 03/19/18 History Allergies Allergy/AdvReac Type Severity Reaction Status Date / Time No Known Allergies Allergy Verified 03/19/18 15:45 Physical Exam Vitals: Vital Signs Temp Pulse Pulse Resp BP BP Pulse Ox 03/20/18 04:00 97.0 F L 52 L 18 116/55 99 03/19/18 23:30 96.9 F L 50 L 18 101/51 99 03/19/18 23:00 97.7 F 03/19/18 22:54 50 L 18 100/59 98 03/19/18 22:25 97.6 F 53 L 18 95/54 99 03/19/18 21:20 54 L 18 98/48 98 03/19/18 20:17 56 L 18 97/49 98 03/19/18 18:22 98.8 F 65 18 109/57 98 03/19/18 17:29 100.9 F H 67 18 101/53 93 L 03/19/18 15:45 102.5 F H 77 18 142/64 89 L Intake and Output 03/19/18 03/20/18 03/20/18 22:59 06:59 14:59 Other: Voiding Method Toilet # Voids 1 Weight 86.636 kg 94.3 kg Gen: This is a 77-year-old female. She is in bed and appears to be comfortable and in no acute distress. HEENT: Head is atraumatic, normocephalic. Pupils equal, round. Sclerae is anicteric. Conjunctiva pink. Mucous members of the mouth are moist. NECK: Supple. No JVD. No lymphadenopathy. No thyromegaly. LUNGS: Clear to auscultation. No wheezes or rhonchi. No intercostal retractions. HEART: Regular rate and rhythm. No murmur. BREAST: To the left breast, dressing was removed. Noted to have serosanguineous with slight yellow tinge on the dressing. There is packing in place. She has a small open area to the medial side. There is surrounding erythema to the breast tissue and extends under what would be the breast fold and into the axilla area. Right breast has healed surgical wound. There is a small dressing in place that is just a dry type. No open area. There is mild erythema just at the site but no tenderness. ABDOMEN: Soft. Bowel sounds are present. No masses. No tenderness. EXTREMITIES: No pedal edema. No calf tenderness. NEUROLOGICAL: Patient is awake, alert and oriented x3. Cranial nerves 2 through 12 are grossly intact. Results Results: Laboratory Results WBC 9.2 k/uL (3.8-10.6) 03/19/18 16:10 RBC 3.80 m/uL (3.80-5.40) 03/19/18 16:10 Hgb 11.0 gm/dL (11.4-16.0) L 03/19/18 16:10 Hct 34.1 % (34.0-46.0) 03/19/18 16:10 MCV 89.6 fL (80.0-100.0) 03/19/18 16:10 MCH 28.9 pg (25.0-35.0) 03/19/18 16:10 MCHC 32.3 g/dL (31.0-37.0) 03/19/18 16:10 RDW 15.3 % (11.5-15.5) 03/19/18 16:10 Plt Count 274 k/uL (150-450) 03/19/18 16:10 Neutrophils % 89 % 03/19/18 16:10 Lymphocytes % 6 % 03/19/18 16:10 Monocytes % 4 % 03/19/18 16:10 Eosinophils % 1 % 03/19/18 16:10 Basophils % 0 % 03/19/18 16:10 Neutrophils # 8.2 k/uL (1.3-7.7) H 03/19/18 16:10 Lymphocytes # 0.5 k/uL (1.0-4.8) L 03/19/18 16:10 Monocytes # 0.4 k/uL (0-1.0) 03/19/18 16:10 Eosinophils # 0.1 k/uL (0-0.7) 03/19/18 16:10 Basophils # 0.0 k/uL (0-0.2) 03/19/18 16:10 PT 10.6 sec (9.0-12.0) 03/19/18 16:10 INR 1.1 (<1.2) 03/19/18 16:10 APTT 26.2 sec (22.0-30.0) 03/19/18 16:10 Sodium 143 mmol/L (137-145) 03/19/18 16:10 Potassium 4.3 mmol/L (3.5-5.1) 03/19/18 16:10 Chloride 107 mmol/L (98-107) 03/19/18 16:10 Carbon Dioxide 21 mmol/L (22-30) L 03/19/18 16:10 Anion Gap 15 mmol/L 03/19/18 16:10 BUN 13 mg/dL (7-17) 03/19/18 16:10 Creatinine 1.00 mg/dL (0.52-1.04) 03/19/18 16:10 Est GFR (CKD-EPI)AfAm 63 (>60 ml/min/1.73 sqM) 03/19/18 16:10 Est GFR (CKD-EPI)NonAf 54 (>60 ml/min/1.73 sqM) 03/19/18 16:10 Glucose 101 mg/dL (74-99) H 03/19/18 16:10 Plasma Lactic Acid [place] 1.3 mmol/L (0.7-2.0) 03/19/18 16:10 Calcium 9.1 mg/dL (8.4-10.2) 03/19/18 16:10 Total Bilirubin 0.5 mg/dL (0.2-1.3) 03/19/18 16:10 AST 24 U/L (14-36) 03/19/18 16:10 ALT 27 U/L (9-52) 03/19/18 16:10 Alkaline Phosphatase 101 U/L (38-126) 03/19/18 16:10 Total Creatine Kinase 34 U/L (30-135) 03/20/18 04:41 CK-MB (CK-2) 0.7 ng/mL (0.0-2.4) 03/20/18 04:41 CK-MB (CK-2) Rel Index 2.1 03/20/18 04:41 Troponin I 0.154 ng/mL (0.000-0.034) H* 03/20/18 04:41 Total Protein 7.0 g/dL (6.3-8.2) 03/19/18 16:10 Albumin 3.8 g/dL (3.5-5.0) 03/19/18 16:10 Triglycerides 66 mg/dL (<150) 03/20/18 04:41 Cholesterol 100 mg/dL (<200) 03/20/18 04:41 LDL Cholesterol, Calc 41 mg/dL (0-99) 03/20/18 04:41 HDL Cholesterol 46 mg/dL (40-60) 03/20/18 04:41 Urine Color Light Yellow 03/19/18 16:10 Urine Appearance Clear (Clear) 03/19/18 16:10 Urine pH 6.5 (5.0-8.0) 03/19/18 16:10 Ur Specific [place] 1.008 (1.001-1.035) 03/19/18 16:10 Urine Protein Negative (Negative) 03/19/18 16:10 Urine Glucose (UA) Negative (Negative) 03/19/18 16:10 Urine Ketones Negative (Negative) 03/19/18 16:10 Urine Blood Trace (Negative) H 03/19/18 16:10 Urine Nitrite Negative (Negative) 03/19/18 16:10 Urine Bilirubin Negative (Negative) 03/19/18 16:10 Urine Urobilinogen <2.0 mg/dL (<2.0) 03/19/18 16:10 Ur Leukocyte Esterase Negative (Negative) 03/19/18 16:10 Urine RBC 7 /hpf (0-5) H 03/19/18 16:10 Urine WBC 3 /hpf (0-5) 03/19/18 16:10 Ur Squamous Epith Cells 1 /hpf (0-4) 03/19/18 16:10 Urine Bacteria Few /hpf (None) H 03/19/18 16:10 Hyaline Casts 3 /lpf (0-2) H 03/19/18 16:10 CBC & Chem 7: 03/21/18 07:16 03/21/18 07:16 Labs: Abnormal Lab Results - Last 24 Hours (Table) 03/19/18 03/19/18 03/19/18 Range/Units 16:10 16:10 16:10 Hgb 11.0 L (11.4-16.0) gm/dL Neutrophils # 8.2 H (1.3-7.7) k/uL Lymphocytes # 0.5 L (1.0-4.8) k/uL Carbon Dioxide 21 L (22-30) mmol/L Glucose 101 H (74-99) mg/dL Troponin I (0.000-0.034) ng/mL Urine Blood Trace H (Negative) Urine RBC 7 H (0-5) /hpf Urine Bacteria Few H (None) /hpf Hyaline Casts 3 H (0-2) /lpf 03/19/18 03/19/18 03/20/18 Range/Units 16:10 22:24 04:41 Hgb (11.4-16.0) gm/dL Neutrophils # (1.3-7.7) k/uL Lymphocytes # (1.0-4.8) k/uL Carbon Dioxide (22-30) mmol/L Glucose (74-99) mg/dL Troponin I 0.084 H* 0.315 H* 0.154 H* (0.000-0.034) ng/mL Urine Blood (Negative) Urine RBC (0-5) /hpf Urine Bacteria (None) /hpf Hyaline Casts (0-2) /lpf Microbiology - Last 24 Hours (Table) 03/19/18 16:00 Blood Culture Gram Stain - Preliminary Blood 03/19/18 16:34 Blood Culture Gram Stain - Preliminary Blood 03/19/18 16:00 Blood Culture - Final Blood 03/19/18 16:10 Blood Culture - Final Blood 03/19/18 16:10 Urine Culture - Preliminary Urine,Voided Assessment and Plan Plan: This is a 77-year-old female patient who presented to a [facility] emergency center with signs of sepsis, septic bacteremia or mass secondary to cellulitis of the left breast status post removal of expanders from previous mastectomy. Patient is currently on Zosyn and vancomycin changed to Rocephin to cover for streptococcal infection. Local wound care is with Aquacel silver dressing to the left breast with AVD pads to absorb drainage. Continue supportive care. Further recommendations as patient progresses. The above dictated assessment and findings were discussed with Dr. Martinez. The impression and plan of care have been directed as dictated. Mayi Lindsay nurse practitioner acting as scribe for Dr. Martinez.
--- NOTE | 2018-03-20 12:41 | P.CRDCN ---
History of Present Illness History of present illness: Patient interviewed and examined. Chest wall discomfort in relation to her incisions on her breast. She is septic. Positive blood cultures, febrile with chills. Borderline troponins. No sedatives and coronary artery disease by coronary angiography. Months back. May go to the medical floor for IV antibiotics. No further cardiac workup at this point. 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 Bilateral mastectomy 09/22, bowel resection 10/2016, heart cath 12/13/17, tiff cataracts Past Anesthesia/Blood Transfusion Reactions: Previous Problems w/ Anesthesia, Postoperative Nausea & Vomiting (PONV) Additional Past Anesthesia/Blood Transfusion Reaction / Comment(s): PATIENT STATES HER TEETH IMPLANTS WERE DISLODGED DURING INTUBATION AND SHE SWALLOWED A TOOTH. Past Psychological History: No Psychological Hx Reported Smoking Status: Former smoker Past Alcohol Use History: None Reported Additional Past Alcohol Use History / Comment(s): Quit in 1984, smoked less than 1/2 PPD for 25 yrs. Past Drug Use History: None Reported - Past Family History Mother Family Medical History: Diabetes Mellitus Father Family Medical History: Myocardial Infarction ([place]) Additional Family Medical History / Comment(s): heart problems Brother(s) Family Medical History: Cancer Medications and Allergies Home Medications Medication Instructions Recorded Confirmed Type Apixaban [Eliquis] 5 mg PO BID 11/24/16 03/19/18 History Escitalopram [Lexapro] 10 mg PO DAILY 01/12/17 03/19/18 History Losartan [Cozaar] 50 mg PO DAILY 12/13/17 03/19/18 History Ferrous Sulfate [Feosol] 325 mg PO DAILY 12/14/17 03/19/18 History Metoprolol Succinate (ER) [Toprol 100 mg PO DAILY 12/14/17 03/19/18 History Xl] Atorvastatin Calcium [Lipitor] 10 mg PO HS 03/19/18 03/19/18 History Fluticasone Nasal [place] [Flonase 1 spray EA NOSTRIL DAILY 03/19/18 03/19/18 History Nasal [place]] Furosemide [Lasix] 20 mg PO DAILY 03/19/18 03/19/18 History Allergies Allergy/AdvReac Type Severity Reaction Status Date / Time No Known Allergies Allergy Verified 03/19/18 15:45 Physical Exam Vitals: Vital Signs Temp Pulse Pulse Resp BP BP Pulse Ox 03/20/18 10:58 66 18 03/20/18 10:57 98.3 F 66 18 123/87 99 03/20/18 09:55 98.3 F 68 18 118/56 99 03/20/18 09:53 52 L 18 03/20/18 04:00 97.0 F L 52 L 18 116/55 99 03/19/18 23:30 96.9 F L 50 L 18 101/51 99 03/19/18 23:00 97.7 F 03/19/18 22:54 50 L 18 100/59 98 03/19/18 22:25 97.6 F 53 L 18 95/54 99 03/19/18 21:20 54 L 18 98/48 98 03/19/18 20:17 56 L 18 97/49 98 03/19/18 18:22 98.8 F 65 18 109/57 98 03/19/18 17:29 100.9 F H 67 18 101/53 93 L 03/19/18 15:45 102.5 F H 77 18 142/64 89 L Intake and Output 03/19/18 03/20/18 03/20/18 22:59 06:59 14:59 Intake Total 1450 Output Total 425 Balance 1025 Intake: Intake, IV Titration 1450 Amount Sodium Chloride 0.9% 1, 1200 000 ml @ 100 mls/hr IV . Q10H [facility] Rx#:[id number] Vancomycin 1,500 mg In 250 Sodium Chloride 0.9% 250 ml @ 125 mls/hr IVPB Q16H [facility] Rx#:[id number] Output: Urine 425 Other: Voiding Method Toilet Toilet # Voids 1 1 Weight 86.636 kg 94.3 kg Results 03/19/18 16:10 03/19/18 16:10 Cardiac Enzymes 03/19/18 03/19/18 03/19/18 Range/Units 16:10 16:10 22:24 AST 24 (14-36) U/L CK-MB (CK-2) 0.6 (0.0-2.4) ng/mL Troponin I 0.084 H* 0.315 H* (0.000-0.034) ng/mL 03/20/18 Range/Units 04:41 AST (14-36) U/L CK-MB (CK-2) 0.7 (0.0-2.4) ng/mL Troponin I 0.154 H* (0.000-0.034) ng/mL Coagulation 03/19/18 Range/Units 16:10 PT 10.6 (9.0-12.0) sec APTT 26.2 (22.0-30.0) sec Lipids 03/20/18 Range/Units 04:41 Triglycerides 66 (<150) mg/dL Cholesterol 100 (<200) mg/dL HDL Cholesterol 46 (40-60) mg/dL CBC 03/19/18 Range/Units 16:10 WBC 9.2 (3.8-10.6) k/uL RBC 3.80 (3.80-5.40) m/uL Hgb 11.0 L (11.4-16.0) gm/dL Hct 34.1 (34.0-46.0) % Plt Count 274 (150-450) k/uL Comprehensive Metabolic Panel 03/19/18 Range/Units 16:10 Sodium 143 (137-145) mmol/L Potassium 4.3 (3.5-5.1) mmol/L Chloride 107 (98-107) mmol/L Carbon Dioxide 21 L (22-30) mmol/L BUN 13 (7-17) mg/dL Creatinine 1.00 (0.52-1.04) mg/dL Glucose 101 H (74-99) mg/dL Calcium 9.1 (8.4-10.2) mg/dL AST 24 (14-36) U/L ALT 27 (9-52) U/L Alkaline Phosphatase 101 (38-126) U/L Total Protein 7.0 (6.3-8.2) g/dL Albumin 3.8 (3.5-5.0) g/dL Current Medications Generic Name Dose Route Start Last Admin Trade Name Freq PRN Reason Stop Dose Admin Acetaminophen 650 mg 03/20/18 10:57 03/20/18 11:04 Tylenol Tab PO 650 mg Q6HR PRN Administration Fever and/ or MILD Pain Apixaban 5 mg 03/19/18 21:00 03/20/18 09:33 Eliquis PO 5 mg BID [facility] Administration Aspirin 81 mg 03/20/18 09:00 03/20/18 09:33 Aspirin PO 81 mg DAILY [facility] Administration Atorvastatin Calcium 10 mg 03/19/18 21:00 03/19/18 22:05 Lipitor PO 10 mg HS [facility] Administration Escitalopram Oxalate 10 mg 03/20/18 09:00 03/20/18 09:27 Lexapro PO 10 mg DAILY [facility] Administration Famotidine 20 mg 03/21/18 09:00 Pepcid PO DAILY [facility] Ferrous Sulfate 325 mg 03/20/18 09:00 03/20/18 09:28 Feosol PO 325 mg DAILY [facility] Administration Fluticasone Propionate 1 spray 03/20/18 09:00 03/20/18 09:33 Flonase Nasal [place] EA NOSTRIL 1 spray DAILY [facility] Administration Furosemide 20 mg 03/20/18 09:00 03/20/18 09:27 Lasix PO 20 mg DAILY [facility] Administration Sodium Chloride 1,000 mls @ 100 mls/hr 03/20/18 05:45 03/20/18 06:15 Saline 0.9% IV 100 mls/hr .Q10H [facility] Administration Vancomycin HCl 1,500 mg/ 250 mls @ 125 mls/hr 03/20/18 22:00 Sodium Chloride IVPB Q16H [facility] Losartan Potassium 50 mg 03/20/18 09:00 03/20/18 09:28 Cozaar PO 50 mg DAILY [facility] Administration Metoprolol Succinate 100 mg 03/20/18 09:00 03/20/18 09:28 Toprol Xl PO 100 mg DAILY [facility] Administration Miscellaneous Information 1 each 03/19/18 17:45 03/19/18 22:25 Rx Info: Iv Contrast Was Given MISCELLANE 03/21/18 17:48 1 each DAILY PRN Administration Per Protocol Nitroglycerin 0.4 mg 03/19/18 19:57 Nitrostat SUBLINGUAL Q5M PRN Chest Pain Intake and Output 03/19/18 03/20/18 03/20/18 22:59 06:59 14:59 Intake Total 1450 Output Total 425 Balance 1025 Intake: Intake, IV Titration 1450 Amount Sodium Chloride 0.9% 1, 1200 000 ml @ 100 mls/hr IV . Q10H [facility] Rx#:[id number] Vancomycin 1,500 mg In 250 Sodium Chloride 0.9% 250 ml @ 125 mls/hr IVPB Q16H [facility] Rx#:[id number] Output: Urine 425 Other: Voiding Method Toilet Toilet # Voids 1 1 Weight 86.636 kg 94.3 kg 03/19/18 16:10 03/19/18 16:10
[2018-03-20] MEDS ORDERED: cefTRIAXone 2,000 MG in SODIUM CHLORIDE 0.9% 100 ML IVPB SCH (19:15)
[2018-03-20] MEDS: cefTRIAXone IN SWFI 2,000 MG/20 ML SYRINGE IVP SCH (20:46)
[2018-03-20] MEDS: VANCOMYCIN 1,500 MG in SODIUM CHLORIDE 0.9% 250 ML IVPB SCH (22:11)
[2018-03-20] MEDS: ATORVASTATIN 10 MG TAB PO SCH (22:11)
--- NOTE | 2018-03-20 22:34 | P.CON ---
Consult Note - . Consult date: 03/20/18 Assessment/Plan:: This is a 77-year-old female patient with past medical history significant for breast cancer status post bilateral mastectomy and placement of expanders subsequently removed. Patient states she had breast surgery done by Dr. Hoffmann at [facility]. (She does not know surgeon's full name). She states one eeg tech did not work and both expanders have been subsequently removed. She states that it all started after she had a fall in her laundry room at home and the drain came out on the left breast and it has been packed ever since. She has had ongoing wound on the left side that is been packed for at least the past month and maybe 2 months. She has a slight pink yellow drainage that has been chronic and she states unchanged and the wound has closed to not being very small. She has home care in place and the wound is packed every other day. Her nurse apparently has not noticed any change in her wound. She developed chills yesterday after her nurse left. She also had left-sided sharp chest pain. She came into [facility] emergency center for evaluation. She was found to have a temperature of 102.5, normal pulse and blood pressure. White count was 9.2. EKG was a sinus rhythm with no acute ST changes. Lactic acid was 1.3, initial troponin 0.084. Urinalysis was clear with nitrate and leukoesterase negative. Chest x-ray showed no acute cardiopulmonary process. CT of the chest revealed left breast surgery. There has been removal of the left breast implant compared to old exam. Right breast implant is also removed. Atherosclerotic vascular disease. There are new compression fractures in the thoracic spine compared to old exam. No evidence of abscess. Cardiomegaly. Minimal subsegmental atelectasis at the lung bases. Patient was started on Zosyn and vancomycin, serial troponins ordered and cardiology consult and patient was admitted to the selective care unit. Patient was evaluated by cardiology and she had a recent heart catheterization in December of this year that revealed mild coronary artery disease with normal LV function. Repeat troponins were 0.31 and 0.15. Echocardiogram has been ordered. Patient has 3 sets of blood cultures obtained on March 19 that are positive for gram-positive cocci. Please see the consult note as dictated by nurse practitioner Mrs. Mayi Lindsay. Pleasant 6-year-old woman is known to the infectious disease service from prior significant abdominal infection in the past. Now has evidence of significant infection to her left breast with the situation as noted with the removed infected eeg tech. She barely is much more awake and interactive than when she was having high-grade fever of 102.5. He has noted the patient has evidence of high-grade bacteremia on the basis of significant infection to the left anterior chest wall with significant amounts of drainage, cultures obtained of this drainage. Blood cultures already however have gram-positive cocci in chains highly suggestive of an extensive streptococcal infection. Antibiotic therapy with vancomycin has been started and will add and Rocephin until we have further culture data. Follow blood cultures are requested. Local wound care with the Aquacel silver dressing has been requested to the left breast and ABD pads to absorb the drainage. Bacteremia clears will need IV access for outpatient intravenous antibiotic therapy which potentially could be done at the hospital which is close to her home. I agree with evaluation, assessment and plan as dictated by nurse practitioner Mayi Lindsay.
[2018-03-21 07:40] LABS: HCT 27.7 % (34.0-46.0); Hypochromasia Slight; MCH 28.9 pg (25.0-35.0); MCHC 31.5 g/dL (31.0-37.0); MCV 91.9 fL (80.0-100.0); Mean Platelet Volume 6.5; Platelet Count 224 k/uL (150-450); RBC 3.01 m/uL (3.80-5.40); RDW 15.4 % (11.5-15.5); WBC 5.1 k/uL (3.8-10.6)
[2018-03-21 07:50] LABS: HGB 8.7 gm/dL (11.4-16.0)
[2018-03-21 07:55] LABS: Calcium 8.1 mg/dL (8.4-10.2); Potassium 3.9 mmol/L (3.5-5.1)
[2018-03-21] MEDS: SODIUM CHLORIDE 0.9% 1,000 ML IV SCH ×2 (08:29→08:38)
[2018-03-21] MEDS: ASPIRIN 81 MG PO SCH (08:37)
[2018-03-21] MEDS: FAMOTIDINE 20 MG TAB PO SCH (08:37)
[2018-03-21] MEDS: FERROUS SULFATE 325 MG TAB PO SCH (08:37)
[2018-03-21] MEDS: ESCITALOPRAM 10 MG TAB PO SCH (08:37)
[2018-03-21] MEDS: FLUTICASONE 50MCG/SPRAY NASAL 16GM EA NOSTRIL SCH (08:37)
[2018-03-21] MEDS: METOPROLOL SUCCINATE (ER) 100 MG TAB.ER.24H PO SCH (08:37)
[2018-03-21] MEDS: LOSARTAN 50 MG TAB PO SCH (08:37)
[2018-03-21] MEDS: FUROSEMIDE 20 MG TAB PO SCH (08:37)
[2018-03-21] MEDS: APIXABAN 5 MG TAB PO SCH (08:37)
[2018-03-21] MEDS: ACETAMINOPHEN TAB 325 MG TAB PO PRN ×2 (08:42→21:44)
[2018-03-21 13:21] LABS: Basophils % (A) 0 %; Eosinophils # (A) 0.3 k/uL (0-0.7); Eosinophils % (A) 6 %; HCT 29.4 % (34.0-46.0); Hypochromasia Moderate; Lymphocytes # (A) 0.9 k/uL (1.0-4.8); Lymphocytes % (A) 17 %; MCH 28.6 pg (25.0-35.0); MCHC 30.7 g/dL (31.0-37.0); MCV 93.4 fL (80.0-100.0); Mean Platelet Volume 6.7; Monocytes # (A) 0.3 k/uL (0-1.0); Monocytes % (A) 7 %; Neutrophils # (A) 3.5 k/uL (1.3-7.7); Neutrophils % (A) 69 %; Platelet Count 221 k/uL (150-450); RBC 3.14 m/uL (3.80-5.40); WBC 5.1 k/uL (3.8-10.6)
[2018-03-21 13:33] LABS: INR 1.2 (<1.2); Partial Thromboplastin Time 30.1 sec (22.0-30.0); Prothrombin Time 11.2 sec (9.0-12.0)
--- NOTE | 2018-03-21 13:50 | P.PN ---
Subjective Progress Note Date: 03/21/18 This is a 77-year-old female patient of Dr. Quintanilla with past medical history for ischemic bowel in 2016 status post hemicolectomy done at [facility] as well as return to the OR for closure handsewn anastomosis 2, breast cancer status post bilateral mastectomy and placement of expanders subsequently removed, hypertension, hyperlipidemia, paroxysmal atrial fibrillation on chronic eliquis, ASD closure in 2005 at [facility], gastroesophageal reflux disease. Patient states she had breast surgery done by Dr. Hoffmann at [facility]. (She does not know surgeon's full name) . She states one extruding machine operator did not work and both expanders have been removed. She states that it all started after she had a fall in her laundry room at home and the drain came out on the left breast and it has been packed ever since. She has had ongoing wound on the left side that is been packed for at least the past month and maybe 2 months. She has a slight pink yellow drainage that has been chronic and she states unchanged and the wound has closed to not being very small. She has home care in place and the wound is packed every other day. Her nurse apparently has not noticed any change in her wound. She developed chills yesterday after her nurse left. She also had left-sided sharp chest pain. She came into [facility] emergency center for evaluation. She was found to have a temperature of 102.5, normal pulse and blood pressure. White count was 9.2. EKG was a sinus rhythm with no acute ST changes. Lactic acid was 1.3, initial troponin 0.084. Urinalysis was clear with nitrate and leukoesterase negative. Chest x-ray showed no acute cardiopulmonary process. CT of the chest revealed left breast surgery. There has been removal of the left breast implant compared to old exam. Right breast implant is also removed. Atherosclerotic vascular disease. There are new compression fractures in the thoracic spine compared to old exam. No evidence of abscess. Cardiomegaly. Minimal subsegmental atelectasis at the lung bases. Patient was started on Zosyn and vancomycin, serial troponins ordered and cardiology consult and patient was admitted to the selective care unit. Subsequently, patient has been seen by cardiology. She has had a recent heart catheterization in December of this year that revealed mild coronary artery disease with normal LV function. Repeat troponins were 0.31 and 0.15. Echocardiogram has been ordered. Patient has 3 sets of blood cultures obtained on March 19 that are positive for gram-positive cocci. A consult has been added with Dr. Martinez. Her chest pain has been completely gone since presentation. 03/21: Blood cultures positive for strep agalactiae group B and repeat blood culture was drawn this morning. Urine culture is showing to gram-negative bacilli organisms. Patient has been seen by Dr. Martinez and antibiotics changed to ceftriaxone and vancomycin was continued. Patient will require most likely midline placement once blood cultures are clear. Eliquis will need to be held for this procedure and patient started on low dose and heparin drip which was start on this evening and continue until patient has her line placed. Patient states that she does not want to go to rehab and is planning to return home with homecare. IV fluids will be discontinued. Patient will be transferred to the [facility] floor.. Objective - Vital Signs Vital signs: Vital Signs Temp 97.2 F L 03/21/18 08:43 Pulse 62 03/21/18 08:44 Resp 16 03/21/18 08:44 BP 133/71 03/21/18 08:43 Pulse Ox 94 L 03/21/18 08:43 Intake & Output 03/20/18 03/21/18 03/21/18 18:59 06:59 18:59 Intake Total 1895 1600 180 Output Total 425 Balance 1470 1600 180 Weight 95.7 kg Intake: Intake, IV Titration 1450 1600 Amount Sodium Chloride 0.9% 1, 1200 1600 000 ml @ 100 mls/hr IV . Q10H [facility] Rx#:[id number] Vancomycin 1,500 mg In 250 Sodium Chloride 0.9% 250 ml @ 125 mls/hr IVPB Q16H [facility] Rx#:[id number] Oral 445 180 Output: Urine 425 Other: Voiding Method Toilet Toilet Toilet # Voids 1 1 - Exam Gen: This is a 77-year-old female. She is in bed and appears to be comfortable and in no acute distress. HEENT: Head is atraumatic, normocephalic. Pupils equal, round. Sclerae is anicteric. Conjunctiva pink. Mucous members of the mouth are moist. NECK: Supple. No JVD. No lymphadenopathy. No thyromegaly. LUNGS: Clear to auscultation. No wheezes or rhonchi. No intercostal retractions. HEART: Regular rate and rhythm. No murmur. BREAST: Dressing in place. Patient denies tenderness. ABDOMEN: Soft. Bowel sounds are present. No masses. No tenderness. EXTREMITIES: No pedal edema. No calf tenderness. NEUROLOGICAL: Patient is awake, alert and oriented x3. Cranial nerves 2 through 12 are grossly intact. - Labs CBC & Chem 7: 03/21/18 13:06 03/21/18 07:16 Labs: Abnormal Lab Results - Last 24 Hours (Table) 03/21/18 03/21/18 Range/Units 07:16 07:16 RBC 3.01 L (3.80-5.40) m/uL Hgb 8.7 L D (11.4-16.0) gm/dL Hct 27.7 L (34.0-46.0) % Chloride 111 H (98-107) mmol/L Calcium 8.1 L (8.4-10.2) mg/dL Microbiology - Last 24 Hours (Table) 03/20/18 18:00 Gram Stain - Preliminary Breast - Left Wound Culture - Preliminary 03/19/18 16:10 Urine Culture - Preliminary Urine,Voided Gram Neg Bacilli Gram Neg Bacilli#2 03/20/18 18:00 Anaerobic Culture - Preliminary Breast - Left 03/19/18 16:34 Blood Culture Gram Stain - Preliminary Blood Blood Culture - Preliminary Strep agalactiae - (group b) 03/19/18 16:00 Blood Culture Gram Stain - Preliminary Blood Blood Culture - Preliminary Strep agalactiae - (group b) Assessment and Plan Plan: 1. Sepsis secondary to left breast cellulitis with Streptococcus bacteremia. No abscess was seen on CAT scan. Patient is currently on IV antibiotics the form of vancomycin and ceftriaxone. Consult with Dr. Martinez. Patient's surgeon is at [facility]. Patient will need midline or PICC line placed once blood cultures are negative. 2. Sharp left-sided chest pain possibly related to left breast cellulitis. Cardiology consult is appreciated. Echocardiogram is pending. No plan for any further intervention as patient had a recent heart catheterization that showed minimal coronary artery disease done in December of this year. 3. Hypertension. Continue losartan 50 mg daily and Toprol-XL 100 mg daily. 4. Hyperlipidemia. Continue atorvastatin 10 mg daily at bedtime. 5. Paroxysmal atrial fibrillation. Eliquis 5 mg twice daily placed on hold and patient started on heparin drip until PICC line can be placed. Continue aspirin 81 mg daily, Toprol-XL 100 mg daily. 6. History of ischemic bowel status post exploratory laparotomy and hemicolectomy at [facility], stable. 7. History of atrial septal defect with closure in 2005 at [facility]. 8. DVT prophylaxis. Patient is on eliquis. 9. Gastrointestinal prophylaxis. Pepcid. 10. Pulmonary prophylaxis. Incentive spirometry. Discharge plan: Home with home care with IV antibiotics Impression and plan of care have been directed as dictated by the signing physician. Mayi Lindsay nurse practitioner acting as scribe for signing physician.
[2018-03-21] MEDS: VANCOMYCIN 1,500 MG in SODIUM CHLORIDE 0.9% 250 ML IVPB SCH (15:31)
[2018-03-21] MEDS: cefTRIAXone IN SWFI 2,000 MG/20 ML SYRINGE IVP SCH (20:07)
[2018-03-21] MEDS ORDERED: HEPARIN SODIUM,PORCINE 5,000 UNIT/ML 1 ML VIAL IV PRN (21:00)
[2018-03-21] MEDS: ATORVASTATIN 10 MG TAB PO SCH (21:43)
[2018-03-21] MEDS: HEPARIN SODIUM,PORCINE/D5W PMX 25,000 UNIT in DEXTROSE/WATER 1 500ML.BAG IV SCH (22:25)
[2018-03-22] MEDS: VANCOMYCIN 1,500 MG in SODIUM CHLORIDE 0.9% 250 ML IVPB SCH ×2 (05:14→23:25)
[2018-03-22] MEDS: ACETAMINOPHEN TAB 325 MG TAB PO PRN (07:18)
[2018-03-22] MEDS: ASPIRIN 81 MG PO SCH (07:19)
[2018-03-22] MEDS: FERROUS SULFATE 325 MG TAB PO SCH (07:19)
[2018-03-22] MEDS: FAMOTIDINE 20 MG TAB PO SCH (07:19)
[2018-03-22] MEDS: ESCITALOPRAM 10 MG TAB PO SCH (07:19)
[2018-03-22] MEDS: LOSARTAN 50 MG TAB PO SCH (07:21)
[2018-03-22] MEDS: METOPROLOL SUCCINATE (ER) 100 MG TAB.ER.24H PO SCH (07:21)
[2018-03-22] MEDS: FUROSEMIDE 20 MG TAB PO SCH (07:21)
[2018-03-22] MEDS: FLUTICASONE 50MCG/SPRAY NASAL 16GM EA NOSTRIL SCH (07:21)
[2018-03-22 07:29] LABS: Basophils % (A) 0 %; Eosinophils # (A) 0.3 k/uL (0-0.7); Eosinophils % (A) 4 %; HCT 31.7 % (34.0-46.0); Hypochromasia Moderate; Lymphocytes # (A) 0.9 k/uL (1.0-4.8); Lymphocytes % (A) 13 %; MCH 29.3 pg (25.0-35.0); MCHC 31.4 g/dL (31.0-37.0); MCV 93.3 fL (80.0-100.0); Mean Platelet Volume 6.6; Monocytes # (A) 0.4 k/uL (0-1.0); Monocytes % (A) 6 %; Neutrophils # (A) 5.5 k/uL (1.3-7.7); Neutrophils % (A) 76 %; Platelet Count 224 k/uL (150-450); RDW 15.4 % (11.5-15.5); WBC 7.3 k/uL (3.8-10.6)
[2018-03-22 07:41] LABS: Calcium 8.7 mg/dL (8.4-10.2); Potassium 3.9 mmol/L (3.5-5.1)
--- NOTE | 2018-03-22 12:00 | P.PN ---
Subjective Progress Note Date: 03/22/18 This is a 77-year-old female patient of Dr. 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 Patient states she had breast surgery done by Dr. Hoffmann at [facility]. (She does not know surgeon's full name) . 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 She states that it all started after she had a fall in her laundry room at home and the drain came out on the left breast and it has been packed ever since. She has had ongoing wound on the left side that is been packed for at least the past month and maybe 2 months. She has a slight pink yellow drainage that has been chronic and she states unchanged and the wound has closed to not being very small. She has home care in place and the wound is packed every other day. Her nurse apparently has not noticed any change in her wound. She developed chills yesterday after her nurse left. She also had left-sided sharp chest pain. She came into [facility] emergency center for evaluation. She was found to have a temperature of 102.5, normal pulse and blood pressure. White count was 9.2. EKG was a sinus rhythm with no acute ST changes. Lactic acid was 1.3, initial troponin 0.084. Urinalysis was clear with nitrate and leukoesterase negative. Chest x-ray showed no acute cardiopulmonary process. CT of the chest revealed left breast surgery. There has been removal of the left breast implant compared to old exam. Right breast implant is also removed. Atherosclerotic vascular disease. There are new compression fractures in the thoracic spine compared to old exam. No evidence of abscess. Cardiomegaly. Minimal subsegmental atelectasis at the lung bases. Patient was started on Zosyn and vancomycin, serial troponins ordered and cardiology consult and patient was admitted to the selective care unit. Subsequently, patient has been seen by cardiology. She has had a recent heart catheterization in December of this year that revealed mild coronary artery disease with normal LV function. Repeat troponins were 0.31 and 0.15. Echocardiogram has been ordered. Patient has 3 sets of blood cultures obtained on March 19 that are positive for gram-positive cocci. A consult has been added with Dr. Martinez. Her chest pain has been completely gone since presentation. 03/21: Blood cultures positive for strep agalactiae group B and repeat blood culture was drawn this morning. Urine culture is showing to gram-negative bacilli organisms. Patient has been seen by Dr. Martinez and antibiotics changed to ceftriaxone and vancomycin was continued. Patient will require most likely PICC placement once blood cultures are clear. Eliquis will need to be held for this procedureand patient started on low dose and heparin drip which was start on this evening and continue until patient has her line placed. Patient states that she does not want to go to rehab and is planning to return home with homecare. IV fluids will be discontinued. Patient will be transferred to the [facility] floor.. 03/22: Patient denies having any fever or chills. She denies pain to the chest. She is requesting something for sleep and melatonin will be added. Plan is for patient to obtain PICC line on Sunday. Her last dose of eliquis was on morning. Repeat blood cultures from March 21 are negative. Objective - Vital Signs Vital signs: Vital Signs Temp 96.9 F L 03/22/18 05:00 Pulse 68 03/22/18 05:00 Resp 16 03/22/18 05:00 BP 161/92 03/22/18 05:00 Pulse Ox 98 03/22/18 07:42 Intake & Output 03/21/18 03/22/18 03/22/18 18:59 06:59 18:59 Intake Total 1800 2260 188.333 Output Total 300 Balance 1500 2260 188.333 Weight 95.7 kg Intake: Intake, IV Titration 1200 1300 188.333 Amount Heparin Sodium,Porcine/ 150 188.333 D5w Pmx 25,000 unit In Dextrose/Water 1 500ml. bag @ 10.45 UNITS/KG/HR 20 mls/hr IV .Q24H [facility] Rx #:[id number] Sodium Chloride 0.9% 1, 1200 900 000 ml @ 100 mls/hr IV . Q10H [facility] Rx#:[id number] Vancomycin 1,500 mg In 250 Sodium Chloride 0.9% 250 ml @ 125 mls/hr IVPB Q16H [facility] Rx#:[id number] Oral 600 960 Output: Urine 300 Other: Voiding Method Toilet Toilet # Voids 1 2 # Bowel Movements 1 - Exam Gen: This is a 77-year-old female. She is in bed and appears to be comfortable and in no acute distress. HEENT: Head is atraumatic, normocephalic. Pupils equal, round. Sclerae is anicteric. Conjunctiva pink. Mucous members of the mouth are moist. NECK: Supple. No JVD. No lymphadenopathy. No thyromegaly. LUNGS: Clear to auscultation. No wheezes or rhonchi. No intercostal retractions. HEART: Regular rate and rhythm. No murmur. BREAST: Dressing in place. Patient denies tenderness. ABDOMEN: Soft. Bowel sounds are present. No masses. No tenderness. EXTREMITIES: No pedal edema. No calf tenderness. NEUROLOGICAL: Patient is awake, alert and oriented x3. Cranial nerves 2 through 12 are grossly intact. - Labs CBC & Chem 7: 03/22/18 06:53 03/22/18 06:53 Labs: Abnormal Lab Results - Last 24 Hours (Table) 03/21/18 03/21/18 03/22/18 Range/Units 13:06 13:06 06:53 RBC 3.14 L (3.80-5.40) m/uL Hgb 9.0 L (11.4-16.0) gm/dL Hct 29.4 L (34.0-46.0) % MCHC 30.7 L (31.0-37.0) g/dL Lymphocytes # 0.9 L (1.0-4.8) k/uL INR 1.2 H (<1.2) APTT 30.1 H (22.0-30.0) sec Chloride 108 H (98-107) mmol/L Carbon Dioxide 20 L (22-30) mmol/L Glucose 108 H (74-99) mg/dL 03/22/18 03/22/18 Range/Units 06:53 07:08 RBC 3.40 L (3.80-5.40) m/uL Hgb 10.0 L (11.4-16.0) gm/dL Hct 31.7 L (34.0-46.0) % MCHC (31.0-37.0) g/dL Lymphocytes # 0.9 L (1.0-4.8) k/uL INR (<1.2) APTT 35.7 H (22.0-30.0) sec Chloride (98-107) mmol/L Carbon Dioxide (22-30) mmol/L Glucose (74-99) mg/dL Microbiology - Last 24 Hours (Table) 03/19/18 16:10 Urine Culture - Final Urine,Voided Escherichia coli Klebsiella pneumoniae 03/19/18 16:00 Blood Culture Gram Stain - Final Blood Blood Culture - Final Strep agalactiae - (group b) 03/19/18 16:34 Blood Culture Gram Stain - Final Blood Blood Culture - Final Strep agalactiae - (group b) 03/20/18 18:00 Gram Stain - Preliminary Breast - Left Wound Culture - Preliminary Assessment and Plan Plan: 1. Sepsis secondary to left breast cellulitis with Streptococcus bacteremia. No abscess was seen on CAT scan. Patient is currently on IV antibiotics the form of vancomycin and ceftriaxone. Consult with Dr. Martinez. Patient's surgeon is at [facility]. Patient will need PICC line placed once blood cultures are negative. Plan is for Sunday due to eliquis. 2. Sharp left-sided chest pain possibly related to left breast cellulitis. Cardiology consult is appreciated. Echocardiogram is pending. No plan for any further intervention as patient had a recent heart catheterization that showed minimal coronary artery disease done in December of this year. 3. Hypertension. Continue losartan 50 mg daily and Toprol-XL 100 mg daily. 4. Hyperlipidemia. Continue atorvastatin 10 mg daily at bedtime. 5. Paroxysmal atrial fibrillation. Eliquis 5 mg twice daily placed on hold and patient started on heparin drip until PICC line can be placed. Continue aspirin 81 mg daily, Toprol-XL 100 mg daily. 6. History of ischemic bowel status post exploratory laparotomy and hemicolectomy at [facility], [facility]. 7. History of atrial septal defect with closure in 2005 at [facility]. 8. DVT prophylaxis. Patient is on eliquis. 9. Gastrointestinal prophylaxis. Pepcid. 10. Pulmonary prophylaxis. Incentive spirometry. Discharge plan: Home with home care with IV antibiotics Impression and plan of care have been directed as dictated by the signing physician. Mayi Lindsay nurse practitioner acting as scribe for signing physician.
[2018-03-22] MEDS: cefTRIAXone IN SWFI 2,000 MG/20 ML SYRINGE IVP SCH (19:49)
[2018-03-22] MEDS: HEPARIN SODIUM,PORCINE/D5W PMX 25,000 UNIT in DEXTROSE/WATER 1 500ML.BAG IV SCH (19:50)
[2018-03-22] MEDS: MELATONIN 5 MG TABLET PO SCH (20:01)
[2018-03-22] MEDS: ATORVASTATIN 10 MG TAB PO SCH (20:01)
[2018-03-22] MEDS ORDERED: VANCOMYCIN TROUGH DUE 1 EACH MISC MISCELLANE ONE (21:00)
[2018-03-23] MEDS: FAMOTIDINE 20 MG TAB PO SCH (07:24)
[2018-03-23] MEDS: FUROSEMIDE 20 MG TAB PO SCH (07:24)
[2018-03-23] MEDS: LOSARTAN 50 MG TAB PO SCH (07:24)
[2018-03-23] MEDS: FERROUS SULFATE 325 MG TAB PO SCH (07:24)
[2018-03-23] MEDS: METOPROLOL SUCCINATE (ER) 100 MG TAB.ER.24H PO SCH (07:24)
[2018-03-23] MEDS: ASPIRIN 81 MG PO SCH (07:24)
[2018-03-23] MEDS: ESCITALOPRAM 10 MG TAB PO SCH (07:25)
[2018-03-23] MEDS: FLUTICASONE 50MCG/SPRAY NASAL 16GM EA NOSTRIL SCH (07:25)
[2018-03-23 07:42] LABS: Basophils % (A) 1 %; Eosinophils # (A) 0.2 k/uL (0-0.7); Eosinophils % (A) 4 %; HCT 25.9 % (34.0-46.0); Lymphocytes # (A) 1.3 k/uL (1.0-4.8); Lymphocytes % (A) 24 %; MCH 28.9 pg (25.0-35.0); MCV 90.3 fL (80.0-100.0); Mean Platelet Volume 6.4; Monocytes # (A) 0.3 k/uL (0-1.0); Monocytes % (A) 6 %; Neutrophils # (A) 3.4 k/uL (1.3-7.7); Neutrophils % (A) 64 %; Platelet Count 215 k/uL (150-450); RBC 2.86 m/uL (3.80-5.40); RDW 15.3 % (11.5-15.5); WBC 5.4 k/uL (3.8-10.6)
[2018-03-23 07:46] LABS: HGB 8.3 gm/dL (11.4-16.0)
[2018-03-23 09:40] LABS: Calcium 8.4 mg/dL (8.4-10.2); Potassium 3.3 mmol/L (3.5-5.1)
--- NOTE | 2018-03-23 11:30 | P.PN ---
Subjective Progress Note Date: 03/23/18 This is a 77-year-old female patient of Dr. 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 Patient states she had breast surgery done by Dr. Hoffmann at [facility]. (She does not know surgeon's full name) . 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 She states that it all started after she had a fall in her laundry room at home and the drain came out on the left breast and it has been packed ever since. She has had ongoing wound on the left side that is been packed for at least the past month and maybe 2 months. She has a slight pink yellow drainage that has been chronic and she states unchanged and the wound has closed to not being very small. She has home care in place and the wound is packed every other day. Her nurse apparently has not noticed any change in her wound. She developed chills yesterday after her nurse left. She also had left-sided sharp chest pain. She came into [facility] emergency center for evaluation. She was found to have a temperature of 102.5, normal pulse and blood pressure. White count was 9.2. EKG was a sinus rhythm with no acute ST changes. Lactic acid was 1.3, initial troponin 0.084. Urinalysis was clear with nitrate and leukoesterase negative. Chest x-ray showed no acute cardiopulmonary process. CT of the chest revealed left breast surgery. There has been removal of the left breast implant compared to old exam. Right breast implant is also removed. Atherosclerotic vascular disease. There are new compression fractures in the thoracic spine compared to old exam. No evidence of abscess. Cardiomegaly. Minimal subsegmental atelectasis at the lung bases. Patient was started on Zosyn and vancomycin, serial troponins ordered and cardiology consult and patient was admitted to the selective care unit. Subsequently, patient has been seen by cardiology. She has had a recent heart catheterization in December of this year that revealed mild coronary artery disease with normal LV function. Repeat troponins were 0.31 and 0.15. Echocardiogram has been ordered. Patient has 3 sets of blood cultures obtained on March 19 that are positive for gram-positive cocci. A consult has been added with Dr. Martinez. Her chest pain has been completely gone since presentation. 03/21: Blood cultures positive for strep agalactiae group B and repeat blood culture was drawn this morning. Urine culture is showing to gram-negative bacilli organisms. Patient has been seen by Dr. Martinez and antibiotics changed to ceftriaxone and vancomycin was continued. Patient will require most likely PICC placement once blood cultures are clear. Eliquis will need to be held for this procedureand patient started on low dose and heparin drip which was start on this evening and continue until patient has her line placed. Patient states that she does not want to go to rehab and is planning to return home with homecare. IV fluids will be discontinued. Patient will be transferred to the [facility] floor.. 03/22: Patient denies having any fever or chills. She denies pain to the chest. She is requesting something for sleep and melatonin will be added. Plan is for patient to obtain PICC line on Sunday. Her last dose of eliquis was on morning. Repeat blood cultures from March 21 are negative. 03/23: Patient states that left breast is less red. She denies any chest pain, shortness of breath. No fever or chills. She states she slept better with the melatonin last night. We are still planning for PICC line placement on Sunday and discharge later that day. Objective - Vital Signs Vital signs: Vital Signs Temp 97.8 F 03/23/18 05:36 Pulse 58 L 03/23/18 05:36 Resp 16 03/23/18 05:36 BP 139/96 03/23/18 05:36 Pulse Ox 94 L 03/23/18 05:36 Intake & Output 03/22/18 03/23/18 03/23/18 18:59 06:59 18:59 Intake Total 299.252 1460.88 Balance 432.720 3427.88 Intake: Intake, IV Titration 188.333 558.88 Amount Heparin Sodium,Porcine/ 188.333 308.88 D5w Pmx 25,000 unit In Dextrose/Water 1 500ml. bag @ 10.45 UNITS/KG/HR 20 mls/hr IV .Q24H [facility] Rx #:[id number] Vancomycin 1,500 mg In 250 Sodium Chloride 0.9% 250 ml @ 125 mls/hr IVPB Q16H [facility] Rx#:[id number] Oral 940 Other: Voiding Method Toilet Toilet Toilet # Voids 3 1 - Exam Gen: This is a 77-year-old female. She is in bed and appears to be comfortable and in no acute distress. HEENT: Head is atraumatic, normocephalic. Pupils equal, round. Sclerae is anicteric. Conjunctiva pink. Mucous members of the mouth are moist. NECK: Supple. No JVD. No lymphadenopathy. No thyromegaly. LUNGS: Clear to auscultation. No wheezes or rhonchi. No intercostal retractions. HEART: Regular rate and rhythm. + Systolic murmur (POA). BREAST: Dressing in place. Patient denies tenderness. ABDOMEN: Soft. Bowel sounds are present. No masses. No tenderness. EXTREMITIES: No pedal edema. No calf tenderness. NEUROLOGICAL: Patient is awake, alert and oriented x3. Cranial nerves 2 through 12 are grossly intact. - Labs CBC & Chem 7: 03/23/18 06:58 03/23/18 06:58 Labs: Abnormal Lab Results - Last 24 Hours (Table) 03/22/18 03/23/1818 Range/Units 13:34 06:58 06:58 RBC 2.86 L (3.80-5.40) m/uL Hgb 8.3 L D (11.4-16.0) gm/dL Hct 25.9 L (34.0-46.0) % APTT 58.7 H 51.3 H (22.0-30.0) sec Microbiology - Last 24 Hours (Table) 03/20/18 18:00 Gram Stain - Final Breast - Left Wound Culture - Final 03/21/18 07:58 Blood Culture - Preliminary Blood No Growth after 24 hours 03/21/18 07:16 Blood Culture - Preliminary Blood No Growth after 24 hours Assessment and Plan Plan: 1. Sepsis secondary to left breast cellulitis with Streptococcus bacteremia. No abscess was seen on CAT scan. Patient is currently on IV antibiotics the form of vancomycin and ceftriaxone. Consult with Dr. Martinez. Patient's surgeon is at [facility]. Patient will need PICC line placed once blood cultures are negative. Plan is for Sunday due to eliquis. 2. Sharp left-sided chest pain possibly related to left breast cellulitis. Cardiology consult is appreciated. Echocardiogram is pending. No plan for any further intervention as patient had a recent heart catheterization that showed minimal coronary artery disease done in December of this year. 3. Hypertension. Continue losartan 50 mg daily and Toprol-XL 100 mg daily. 4. Hyperlipidemia. Continue atorvastatin 10 mg daily at bedtime. 5. Paroxysmal atrial fibrillation. Eliquis 5 mg twice daily placed on hold and patient started on heparin drip until PICC line can be placed. Continue aspirin 81 mg daily, Toprol-XL 100 mg daily. 6. History of ischemic bowel status post exploratory laparotomy and hemicolectomy at [facility], [facility]. 7. History of atrial septal defect with closure in 2005 at [facility]. 8. DVT prophylaxis. Patient is on eliquis. 9. Gastrointestinal prophylaxis. Pepcid. 10. Pulmonary prophylaxis. Incentive spirometry. Discharge plan: Home with home care with IV antibiotics Impression and plan of care have been directed as dictated by the signing physician. Mayi Lindsay nurse practitioner acting as scribe for signing physician.
[2018-03-23] MEDS ORDERED: POTASSIUM CHLORIDE ER 20 MEQ TAB.ER PO STA (11:46)
[2018-03-23] MEDS: HEPARIN SODIUM,PORCINE/D5W PMX 25,000 UNIT in DEXTROSE/WATER 1 500ML.BAG IV SCH (13:50)
[2018-03-23] MEDS: VANCOMYCIN 1,500 MG in SODIUM CHLORIDE 0.9% 250 ML IVPB SCH (13:50)
[2018-03-23] MEDS ORDERED: hydrALAZINE HCL 10 MG TAB PO PRN (17:41)
[2018-03-23] MEDS ORDERED: LOSARTAN 50 MG TAB PO STA (17:50)
--- NOTE | 2018-03-23 18:43 | P.PN ---
Subjective Progress Note Date: 03/23/18 This is a 77-year-old female patient with past medical history significant for breast cancer status post bilateral mastectomy and placement of expanders subsequently removed. Patient states she had breast surgery done by Dr. Hoffmann at [facility]. (She does not know surgeon's full name). She states one packaging technician did not work and both expanders have been subsequently removed. She states that it all started after she had a fall in her laundry room at home and the drain came out on the left breast and it has been packed ever since. She has had ongoing wound on the left side that is been packed for at least the past month and maybe 2 months. She has a slight pink yellow drainage that has been chronic and she states unchanged and the wound has closed to not being very small. She has home care in place and the wound is packed every other day. Her nurse apparently has not noticed any change in her wound. She developed chills yesterday after her nurse left. She also had left-sided sharp chest pain. She came into [facility] emergency center for evaluation. She was found to have a temperature of 102.5, normal pulse and blood pressure. White count was 9.2. EKG was a sinus rhythm with no acute ST changes. Lactic acid was 1.3, initial troponin 0.084. Urinalysis was clear with nitrate and leukoesterase negative. Chest x-ray showed no acute cardiopulmonary process. CT of the chest revealed left breast surgery. There has been removal of the left breast implant compared to old exam. Right breast implant is also removed. Atherosclerotic vascular disease. There are new compression fractures in the thoracic spine compared to old exam. No evidence of abscess. Cardiomegaly. Minimal subsegmental atelectasis at the lung bases. Patient was started on Zosyn and vancomycin, serial troponins ordered and cardiology consult and patient was admitted to the selective care unit. Patient was evaluated by cardiology and she had a recent heart catheterization in December of this year that revealed mild coronary artery disease with normal LV function. Repeat troponins were 0.31 and 0.15. Echocardiogram has been ordered. Patient has 3 sets of blood cultures obtained on March 19 that are positive for gram-positive cocci. 03/23/2018 finds the patient be doing considerably better. She continues to have some waxing and waning of her mental status but mostly she is quite clear. Her comfort is improved. Drainage in order have improved. She has no further fevers or chills. He is pleased that she is improving. Her children are present and they're updated on her status. the family's questions are answered. Objective - Vital Signs Vital signs: Vital Signs Temp 98.0 F 03/23/18 14:28 Pulse 57 L 03/23/18 14:28 Resp 18 03/23/18 14:28 BP 180/74 03/23/18 14:28 Pulse Ox 97 03/23/18 14:28 Intake & Output 03/22/18 03/23/18 03/23/18 18:59 06:59 18:59 Intake Total 243.052 4275.88 463.32 Balance 424.746 7447.88 463.32 Intake: Intake, IV Titration 188.333 558.88 463.32 Amount Heparin Sodium,Porcine/ 188.333 308.88 463.32 D5w Pmx 25,000 unit In Dextrose/Water 1 500ml. bag @ 10.45 UNITS/KG/HR 20 mls/hr IV .Q24H [facility] Rx #:[id number] Vancomycin 1,500 mg In 250 Sodium Chloride 0.9% 250 ml @ 125 mls/hr IVPB Q16H [facility] Rx#:[id number] Oral 940 Other: Voiding Method Toilet Toilet Toilet # Voids 3 1 2 - Exam Gen: This is a 77-year-old female. She is in bed and appears to be comfortable and in no acute distress. HEENT: Head is atraumatic, normocephalic. Pupils equal, round. Sclerae is anicteric. Conjunctiva pink. Mucous members of the mouth are moist. NECK: Supple. No JVD. No lymphadenopathy. No thyromegaly. LUNGS: Clear to auscultation. No wheezes or rhonchi. No intercostal retractions. HEART: Regular rate and rhythm. No murmur. BREAST: To the left breast, dressing was removed. Noted to have serosanguineous with slight yellow tinge on the dressing. There is packing in place. She has a small open area to the medial side. there is no improvement in the erythema. Amount of drainage is markedly improved per the nursing staff and she's done well with the current packing and highly absorptive pads that are being utilized. She has less tenderness. ABDOMEN: Soft. Bowel sounds are present. No masses. No tenderness. EXTREMITIES: No pedal edema. No calf tenderness. NEUROLOGICAL: Patient is awake, alert and oriented x3. - Labs CBC & Chem 7: 18 06:58 18 06:58 Labs: Abnormal Lab Results - Last 24 Hours (Table) 03/23/18 03/23/18 03/23/18 Range/Units 06:58 06:58 06:58 RBC 2.86 L (3.80-5.40) m/uL Hgb 8.3 L D (11.4-16.0) gm/dL Hct 25.9 L (34.0-46.0) % APTT 51.3 H (22.0-30.0) sec Potassium 3.3 L (3.5-5.1) mmol/L Chloride 108 H (98-107) mmol/L Carbon Dioxide 21 L (22-30) mmol/L Microbiology - Last 24 Hours (Table) 03/21/18 07:58 Blood Culture - Preliminary Blood No Growth after 48 hours 03/21/18 07:16 Blood Culture - Preliminary Blood No Growth after 48 hours 03/20/18 18:00 Gram Stain - Final Breast - Left Wound Culture - Final Laboratory Results WBC 5.4 k/uL (3.8-10.6) 03/23/18 06:58 RBC 2.86 m/uL (3.80-5.40) L 03/23/18 06:58 Hgb 8.3 gm/dL (11.4-16.0) L D 03/23/18 06:58 Hct 25.9 % (34.0-46.0) L 03/23/18 06:58 MCV 90.3 fL (80.0-100.0) 03/23/18 06:58 MCH 28.9 pg (25.0-35.0) 03/23/18 06:58 MCHC 32.0 g/dL (31.0-37.0) 03/23/18 06:58 RDW 15.3 % (11.5-15.5) 03/23/18 06:58 Plt Count 215 k/uL (150-450) 03/23/18 06:58 Neutrophils % 64 % 03/23/18 06:58 Lymphocytes % 24 % 03/23/18 06:58 Monocytes % 6 % 03/23/18 06:58 Eosinophils % 4 % 03/23/18 06:58 Basophils % 1 % 03/23/18 06:58 Neutrophils # 3.4 k/uL (1.3-7.7) 03/23/18 06:58 Lymphocytes # 1.3 k/uL (1.0-4.8) 03/23/18 06:58 Monocytes # 0.3 k/uL (0-1.0) 03/23/18 06:58 Eosinophils # 0.2 k/uL (0-0.7) 03/23/18 06:58 Basophils # 0.0 k/uL (0-0.2) 03/23/18 06:58 Hypochromasia Moderate 03/22/18 06:53 PT 11.2 sec (9.0-12.0) 03/21/18 13:06 INR 1.2 (<1.2) H 03/21/18 13:06 APTT 51.3 sec (22.0-30.0) H 03/23/18 06:58 Sodium 140 mmol/L (137-145) 03/23/18 06:58 Potassium 3.3 mmol/L (3.5-5.1) L 03/23/18 06:58 Chloride 108 mmol/L (98-107) H 03/23/18 06:58 Carbon Dioxide 21 mmol/L (22-30) L 03/23/18 06:58 Anion Gap 11 mmol/L 03/23/18 06:58 BUN 9 mg/dL (7-17) 03/23/18 06:58 Creatinine 0.85 mg/dL (0.52-1.04) 03/23/18 06:58 Est GFR (CKD-EPI)AfAm 76 (>60 ml/min/1.73 sqM) 03/23/18 06:58 Est GFR (CKD-EPI)NonAf 66 (>60 ml/min/1.73 sqM) 03/23/18 06:58 Glucose 90 mg/dL (74-99) 03/23/18 06:58 Plasma Lactic Acid Deion 1.3 mmol/L (0.7-2.0) 03/19/18 16:10 Calcium 8.4 mg/dL (8.4-10.2) 03/23/18 06:58 Magnesium 2.0 mg/dL (1.6-2.3) 03/21/18 07:16 Total Bilirubin 0.5 mg/dL (0.2-1.3) 03/19/18 16:10 AST 24 U/L (14-36) 03/19/18 16:10 ALT 27 U/L (9-52) 03/19/18 16:10 Alkaline Phosphatase 101 U/L (38-126) 03/19/18 16:10 Total Creatine Kinase 34 U/L (30-135) 03/20/18 04:41 CK-MB (CK-2) 0.7 ng/mL (0.0-2.4) 03/20/18 04:41 CK-MB (CK-2) Rel Index 2.1 03/20/18 04:41 Troponin I 0.154 ng/mL (0.000-0.034) H* 03/20/18 04:41 Total Protein 7.0 g/dL (6.3-8.2) 03/19/18 16:10 Albumin 3.8 g/dL (3.5-5.0) 03/19/18 16:10 Triglycerides 66 mg/dL (<150) 03/20/18 04:41 Cholesterol 100 mg/dL (<200) 03/20/18 04:41 LDL Cholesterol, Calc 41 mg/dL (0-99) 03/20/18 04:41 HDL Cholesterol 46 mg/dL (40-60) 03/20/18 04:41 Urine Color Light Yellow 03/19/18 16:10 Urine Appearance Clear (Clear) 03/19/18 16:10 Urine pH 6.5 (5.0-8.0) 03/19/18 16:10 Ur Specific [place] 1.008 (1.001-1.035) 03/19/18 16:10 Urine Protein Negative (Negative) 03/19/18 16:10 Urine Glucose (UA) Negative (Negative) 03/19/18 16:10 Urine Ketones Negative (Negative) 03/19/18 16:10 Urine Blood Trace (Negative) H 03/19/18 16:10 Urine Nitrite Negative (Negative) 03/19/18 16:10 Urine Bilirubin Negative (Negative) 03/19/18 16:10 Urine Urobilinogen <2.0 mg/dL (<2.0) 03/19/18 16:10 Ur Leukocyte Esterase Negative (Negative) 03/19/18 16:10 Urine RBC 7 /hpf (0-5) H 03/19/18 16:10 Urine WBC 3 /hpf (0-5) 03/19/18 16:10 Ur Squamous Epith Cells 1 /hpf (0-4) 03/19/18 16:10 Urine Bacteria Few /hpf (None) H 03/19/18 16:10 Hyaline Casts 3 /lpf (0-2) H 03/19/18 16:10 Vancomycin Trough 17.0 ug/mL 03/22/18 21:02 Microbiology 03/21/18 07:58 Blood Blood Culture - Preliminary No Growth after 48 hours 03/21/18 07:16 Blood Blood Culture - Preliminary No Growth after 48 hours 03/20/18 18:00 Breast - Left Gram Stain - Final 03/20/18 18:00 Breast - Left Wound Culture - Final 03/19/18 16:10 Urine,Voided Urine Culture - Final Escherichia coli Klebsiella pneumoniae 03/19/18 16:00 Blood Blood Culture Gram Stain - Final 03/19/18 16:00 Blood Blood Culture - Final Strep agalactiae - (group b) 03/19/18 16:34 Blood Blood Culture Gram Stain - Final 03/19/18 16:34 Blood Blood Culture - Final Strep agalactiae - (group b) 03/20/18 18:00 Breast - Left Anaerobic Culture - Preliminary 03/19/18 16:00 Blood Blood Culture - Final 03/19/18 16:10 Blood Blood Culture - Final Assessment and Plan (1) Cellulitis of breast Narrative/Plan: Pleasant 77-year-old woman is known to the infectious disease service from prior significant abdominal infection in the past. Now has evidence of significant infection to her left breast with the situation as noted with the removed infected packaging technician. She barely is much more awake and interactive than when she was having high-grade fever of 102.5. He has noted the patient has evidence of high-grade bacteremia on the basis of significant infection to the left anterior chest wall with significant amounts of drainage, cultures obtained of this drainage. Blood cultures already however have gram-positive cocci in chains highly suggestive of an extensive streptococcal infection. Antibiotic therapy with vancomycin has been started and will add and Rocephin until we have further culture data. Follow blood cultures are requested. Local wound care with the Aquacel silver dressing has been requested to the left breast and ABD pads to absorb the drainage. Bacteremia clears will need IV access for outpatient intravenous antibiotic therapy which potentially could be done at the hospital which is close to her home. 03/23/2018 patient started to show some recovery. She is definitely feeling better is not quite yet at her baseline. The patient does have evidence of possible cauterization admission with group B strep cultures and one they are now negative. It is planned at this time for PICC line replaced Sunday for blood cultures remain negative, her outlook was was placed on hold till then. Plan at this time will be for the patient to utilize an outpatient intravenous antibiotic therapy. In the home setting where the local hospital to her home. Her leukocytosis has improved. Her altered mental status is also improved. it would twice a day over have home care so that the ulceration on her breast can be packed and monitored in the setting with follow-up in the office. Current Visit: Yes Status: Acute Code(s): N61.0 - MASTITIS WITHOUT ABSCESS SNOMED Code(s): 33546716 (2) Breast cancer Current Visit: No Status: Chronic Priority: Medium Code(s): C50.919 - MALIGNANT NEOPLASM OF UNSP SITE OF UNSPECIFIED FEMALE BREAST SNOMED Code(s): 591361750
[2018-03-23] MEDS: cefTRIAXone IN SWFI 2,000 MG/20 ML SYRINGE IVP SCH (19:20)
[2018-03-23] MEDS: ACETAMINOPHEN TAB 325 MG TAB PO PRN (19:27)
[2018-03-23] MEDS: ATORVASTATIN 10 MG TAB PO SCH (20:56)
[2018-03-23] MEDS: MELATONIN 5 MG TABLET PO SCH (20:56)
[2018-03-23] MEDS: hydrALAZINE HCL 20 MG/ML 1 ML VIAL IVP PRN (23:19)
[2018-03-24] MEDS: hydrALAZINE HCL 20 MG/ML 1 ML VIAL IVP PRN (05:25)
[2018-03-24] MEDS: VANCOMYCIN 1,500 MG in SODIUM CHLORIDE 0.9% 250 ML IVPB SCH ×2 (05:25→21:52)
[2018-03-24] MEDS: ACETAMINOPHEN TAB 325 MG TAB PO PRN ×2 (06:17→17:22)
[2018-03-24 07:12] LABS: Basophils # (A) 0.1 k/uL (0-0.2); Basophils % (A) 1 %; Eosinophils # (A) 0.3 k/uL (0-0.7); Eosinophils % (A) 4 %; HCT 29.2 % (34.0-46.0); HGB 9.3 gm/dL (11.4-16.0); Hypochromasia Slight; Lymphocytes # (A) 1.1 k/uL (1.0-4.8); Lymphocytes % (A) 16 %; MCH 29.1 pg (25.0-35.0); MCHC 31.9 g/dL (31.0-37.0); MCV 91.1 fL (80.0-100.0); Mean Platelet Volume 6.6; Monocytes # (A) 0.5 k/uL (0-1.0); Monocytes % (A) 6 %; Neutrophils # (A) 5.1 k/uL (1.3-7.7); Neutrophils % (A) 71 %; Platelet Count 240 k/uL (150-450); RDW 15.5 % (11.5-15.5); WBC 7.1 k/uL (3.8-10.6)
[2018-03-24 07:25] LABS: Calcium 8.9 mg/dL (8.4-10.2); Potassium 3.5 mmol/L (3.5-5.1)
[2018-03-24] MEDS: ESCITALOPRAM 10 MG TAB PO SCH (07:29)
[2018-03-24] MEDS: FAMOTIDINE 20 MG TAB PO SCH (07:29)
[2018-03-24] MEDS: FERROUS SULFATE 325 MG TAB PO SCH (07:29)
[2018-03-24] MEDS: FLUTICASONE 50MCG/SPRAY NASAL 16GM EA NOSTRIL SCH (07:30)
[2018-03-24] MEDS: FUROSEMIDE 20 MG TAB PO SCH (07:30)
[2018-03-24] MEDS: METOPROLOL SUCCINATE (ER) 100 MG TAB.ER.24H PO SCH (07:31)
[2018-03-24] MEDS: LOSARTAN 50 MG TAB PO SCH (07:31)
[2018-03-24] MEDS: HEPARIN SODIUM,PORCINE/D5W PMX 25,000 UNIT in DEXTROSE/WATER 1 500ML.BAG IV SCH (07:45)
[2018-03-24] MEDS ORDERED: FUROSEMIDE 20 MG TAB PO STA (10:16)
[2018-03-24] MEDS: NIFEdipine 10 MG CAP PO SCH ×3 (10:48→21:52)
--- NOTE | 2018-03-24 11:48 | P.PN ---
Subjective Progress Note Date: 03/24/18 This is a 77-year-old female patient of Dr. 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 Patient states she had breast surgery done by Dr. Hoffmann at [facility]. (She does not know surgeon's full name) . She states one technical operations manager did not work and both expanders have been removed. She states that it all started after she had a fall in her laundry room at home and the drain came out on the left breast and it has been packed ever since. She has had ongoing wound on the left side that is been packed for at least the past month and maybe 2 months. She has a slight pink yellow drainage that has been chronic and she states unchanged and the wound has closed to not being very small. She has home care in place and the wound is packed every other day. Her nurse apparently has not noticed any change in her wound. She developed chills yesterday after her nurse left. She also had left-sided sharp chest pain. She came into [facility] emergency center for evaluation. She was found to have a temperature of 102.5, normal pulse and blood pressure. White count was 9.2. EKG was a sinus rhythm with no acute ST changes. Lactic acid was 1.3, initial troponin 0.084. Urinalysis was clear with nitrate and leukoesterase negative. Chest x-ray showed no acute cardiopulmonary process. CT of the chest revealed left breast surgery. There has been removal of the left breast implant compared to old exam. Right breast implant is also removed. Atherosclerotic vascular disease. There are new compression fractures in the thoracic spine compared to old exam. No evidence of abscess. Cardiomegaly. Minimal subsegmental atelectasis at the lung bases. Patient was started on Zosyn and vancomycin, serial troponins ordered and cardiology consult and patient was admitted to the selective care unit. Subsequently, patient has been seen by cardiology. She has had a recent heart catheterization in December of this year that revealed mild coronary artery disease with normal LV function. Repeat troponins were 0.31 and 0.15. Echocardiogram has been ordered. Patient has 3 sets of blood cultures obtained on March 19 that are positive for gram-positive cocci. A consult has been added with Dr. Martinez. Her chest pain has been completely gone since presentation. 03/21: Blood cultures positive for strep agalactiae group B and repeat blood culture was drawn this morning. Urine culture is showing to gram-negative bacilli organisms. Patient has been seen by Dr. Martinez and antibiotics changed to ceftriaxone and vancomycin was continued. Patient will require most likely PICC placement once blood cultures are clear. Eliquis will need to be held for this procedureand patient started on low dose and heparin drip which was start on this evening and continue until patient has her line placed. Patient states that she does not want to go to rehab and is planning to return home with homecare. IV fluids will be discontinued. Patient will be transferred to the [facility] floor.. 03/22: Patient denies having any fever or chills. She denies pain to the chest. She is requesting something for sleep and melatonin will be added. Plan is for patient to obtain PICC line on Sunday. Her last dose of eliquis was on morning. Repeat blood cultures from March 21 are negative. 03/23: Patient states that left breast is less red. She denies any chest pain, shortness of breath. No fever or chills. She states she slept better with the melatonin last night. We are still planning for PICC line placement on Sunday and discharge later that day. 03/24: Patient is scheduled for PICC line placement on Sunday and plan for IV antibiotics at home and patient will follow-up in the office with Dr. Martinez. Patient had elevated blood pressure readings during the night and was given additional dose of losartan 50 mg and daily dose was increased to 100 mg. Patient was also given a dose of oral hydralazine 10 mg and 2 doses of hydralazine 20 mg IV push. Procardia has been added. Blood pressure is improving this morning. Objective - Vital Signs Vital signs: Vital Signs Temp 98.2 F 03/24/18 05:09 Pulse 63 03/24/18 07:00 Resp 16 03/24/18 05:09 BP 165/70 03/24/18 07:00 Pulse Ox 93 L 03/24/18 05:09 Intake & Output 03/23/18 03/24/18 03/24/18 18:59 06:59 18:59 Intake Total 463.32 461.175 Balance 463.32 461.175 Intake: Intake, IV Titration 463.32 461.175 Amount Heparin Sodium,Porcine/ 463.32 461.175 D5w Pmx 25,000 unit In Dextrose/Water 1 500ml. bag @ 10.45 UNITS/KG/HR 20 mls/hr IV .Q24H [facility] Rx #:[id number] Other: Voiding Method Toilet Toilet # Voids 2 2 - Exam Gen: This is a 77-year-old female. She is in bed and appears to be comfortable and in no acute distress. HEENT: Head is atraumatic, normocephalic. Pupils equal, round. Sclerae is anicteric. Conjunctiva pink. Mucous members of the mouth are moist. NECK: Supple. No JVD. No lymphadenopathy. No thyromegaly. LUNGS: Clear to auscultation. No wheezes or rhonchi. No intercostal retractions. HEART: Regular rate and rhythm. + Systolic murmur (POA). BREAST: Dressing in place. Patient denies tenderness. ABDOMEN: Soft. Bowel sounds are present. No masses. No tenderness. EXTREMITIES: No pedal edema. No calf tenderness. NEUROLOGICAL: Patient is awake, alert and oriented x3. Cranial nerves 2 through 12 are grossly intact. - Labs CBC & Chem 7: 03/24/18 06:32 03/24/18 06:32 Labs: Abnormal Lab Results - Last 24 Hours (Table) 03/23/18 03/24/18 03/24/18 Range/Units 06:58 06:32 06:32 RBC 3.20 L (3.80-5.40) m/uL Hgb 9.3 L (11.4-16.0) gm/dL Hct 29.2 L (34.0-46.0) % APTT (22.0-30.0) sec Potassium 3.3 L (3.5-5.1) mmol/L Chloride 108 H 108 H (98-107) mmol/L Carbon Dioxide 21 L 20 L (22-30) mmol/L Glucose 101 H (74-99) mg/dL 03/24/18 Range/Units 06:32 RBC (3.80-5.40) m/uL Hgb (11.4-16.0) gm/dL Hct (34.0-46.0) % APTT 52.6 H (22.0-30.0) sec Potassium (3.5-5.1) mmol/L Chloride (98-107) mmol/L Carbon Dioxide (22-30) mmol/L Glucose (74-99) mg/dL Microbiology - Last 24 Hours (Table) 03/21/18 07:16 Blood Culture - Preliminary Blood No Growth after 72 hours 03/21/18 07:58 Blood Culture - Preliminary Blood No Growth after 48 hours Assessment and Plan Plan: 1. Sepsis secondary to left breast cellulitis with Streptococcus bacteremia. No abscess was seen on CAT scan. Patient is currently on IV antibiotics the form of vancomycin and ceftriaxone. Consult with Dr. Martinez. Patient's surgeon is at [facility]. Patient will need PICC line placed once blood cultures are negative. Plan is for Sunday due to eliquis. 2. Sharp left-sided chest pain possibly related to left breast cellulitis. Cardiology consult is appreciated. Echocardiogram is pending. No plan for any further intervention as patient had a recent heart catheterization that showed minimal coronary artery disease done in December of this year. 3. Emergent Hypertension requiring oral dose of hydralazine and 2 doses of IV hydralazine, increase losartan to 100 mg daily, continue Toprol-XL at 100 mg daily and added nifedipine 10 mg 3 times daily. 4. Hyperlipidemia. Continue atorvastatin 10 mg daily at bedtime. 5. Paroxysmal atrial fibrillation. Eliquis 5 mg twice daily placed on hold and patient started on heparin drip until PICC line can be placed. Continue aspirin 81 mg daily, Toprol-XL 100 mg daily. 6. History of ischemic bowel status post exploratory laparotomy and hemicolectomy at [facility], stable. 7. History of atrial septal defect with closure in 2005 at [facility]. 8. DVT prophylaxis. Patient is on eliquis. 9. Gastrointestinal prophylaxis. Pepcid. 10. Pulmonary prophylaxis. Incentive spirometry. Discharge plan: Home with home care with IV antibiotics on Sunday Impression and plan of care have been directed as dictated by the signing physician. Mayi Lindsay nurse practitioner acting as scribe for signing physician.
[2018-03-24] MEDS: cefTRIAXone IN SWFI 2,000 MG/20 ML SYRINGE IVP SCH (19:36)
[2018-03-24] MEDS: MELATONIN 5 MG TABLET PO SCH (21:52)
[2018-03-24] MEDS: ATORVASTATIN 10 MG TAB PO SCH (21:52)
[2018-03-25] MEDS: HEPARIN SODIUM,PORCINE/D5W PMX 25,000 UNIT in DEXTROSE/WATER 1 500ML.BAG IV SCH (03:20)
[2018-03-25 05:56] VITALS: BP 115/60; PULSE 62; RESP 16; TEMP 98
[2018-03-25 07:42] LABS: Basophils % (A) 1 %; Eosinophils # (A) 0.4 k/uL (0-0.7); Eosinophils % (A) 7 %; HCT 29.7 % (34.0-46.0); HGB 9.5 gm/dL (11.4-16.0); Hypochromasia Slight; Lymphocytes # (A) 1.2 k/uL (1.0-4.8); Lymphocytes % (A) 21 %; MCH 28.8 pg (25.0-35.0); MCHC 31.9 g/dL (31.0-37.0); MCV 90.3 fL (80.0-100.0); Mean Platelet Volume 6.8; Monocytes # (A) 0.4 k/uL (0-1.0); Monocytes % (A) 7 %; Neutrophils # (A) 3.6 k/uL (1.3-7.7); Neutrophils % (A) 63 %; Platelet Count 295 k/uL (150-450); RBC 3.29 m/uL (3.80-5.40); RDW 15.8 % (11.5-15.5); WBC 5.6 k/uL (3.8-10.6)
[2018-03-25 07:59] LABS: Calcium 8.8 mg/dL (8.4-10.2); Potassium 3.3 mmol/L (3.5-5.1)
[2018-03-25] MEDS ORDERED: POTASSIUM CHLORIDE ER 20 MEQ TAB.ER PO STA (08:41)
[2018-03-25] MEDS ORDERED: ERTAPENEM 1 GM in SODIUM CHLORIDE 0.9% 50 ML IVPB SCH (09:00)
[2018-03-25] MEDS ORDERED: FUROSEMIDE 40 MG TAB PO SCH (09:00)
[2018-03-25] MEDS ORDERED: FUROSEMIDE 20 MG TAB PO SCH (09:00)
[2018-03-25] MEDS: FLUTICASONE 50MCG/SPRAY NASAL 16GM EA NOSTRIL SCH (09:04)
[2018-03-25] MEDS: FAMOTIDINE 20 MG TAB PO SCH (09:04)
[2018-03-25] MEDS: NIFEdipine 10 MG CAP PO SCH ×2 (09:04→17:30)
[2018-03-25] MEDS: FERROUS SULFATE 325 MG TAB PO SCH (09:05)
[2018-03-25] MEDS: LOSARTAN 50 MG TAB PO SCH (09:06)
[2018-03-25] MEDS: METOPROLOL SUCCINATE (ER) 100 MG TAB.ER.24H PO SCH (09:06)
[2018-03-25] MEDS: ESCITALOPRAM 10 MG TAB PO SCH (09:06)
--- NOTE | 2018-03-25 10:53 | P.DS ---
Providers Date of admission: 03/19/18 19:57 Expected date of discharge: 03/25/18 Attending physician: Stu Peterson MD Consults: 03/19/18 19:57 Consult Physician Urgent Consulting Provider: [facility] Consult Reason/Comments: Elevated troponin, chest pain Do you want consulting provider notified?: Yes 03/20/18 09:21 Consult Physician Routine Consulting Provider: Caleb Martinez Consult Reason/Comments: left breast cellulitis, bacteremia Do you want consulting provider notified?: Yes Primary care physician: Luisana Quintanilla [place] [facility] Course: This is a 77-year-old female patient of Dr. 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 Patient states she had breast surgery done by Dr. Hoffmann at [facility]. (She does not know surgeon's full name) . She states one geophysical prospector did not work and both expanders have been removed. She states that it all started after she had a fall in her laundry room at home and the drain came out on the left breast and it has been packed ever since. She has had ongoing wound on the left side that is been packed for at least the past month and maybe 2 months. She has a slight pink yellow drainage that has been chronic and she states unchanged and the wound has closed to not being very small. She has home care in place and the wound is packed every other day. Her nurse apparently has not noticed any change in her wound. She developed chills yesterday after her nurse left. She also had left-sided sharp chest pain. She came into [facility] emergency center for evaluation. She was found to have a temperature of 102.5, normal pulse and blood pressure. White count was 9.2. EKG was a sinus rhythm with no acute ST changes. Lactic acid was 1.3, initial troponin 0.084. Urinalysis was clear with nitrate and leukoesterase negative. Chest x-ray showed no acute cardiopulmonary process. CT of the chest revealed left breast surgery. There has been removal of the left breast implant compared to old exam. Right breast implant is also removed. Atherosclerotic vascular disease. There are new compression fractures in the thoracic spine compared to old exam. No evidence of abscess. Cardiomegaly. Minimal subsegmental atelectasis at the lung bases. Patient was started on Zosyn and vancomycin, serial troponins ordered and cardiology consult and patient was admitted to the selective care unit. Subsequently, patient has been seen by cardiology. She has had a recent heart catheterization in December of this year that revealed mild coronary artery disease with normal LV function. Repeat troponins were 0.31 and 0.15. Echocardiogram has been ordered. Patient has 3 sets of blood cultures obtained on March 19 that are positive for gram-positive cocci. A consult has been added with Dr. Martinez. Her chest pain has been completely gone since presentation. 03/21: Blood cultures positive for strep agalactiae group B and repeat blood culture was drawn this morning. Urine culture is showing to gram-negative bacilli organisms. Patient has been seen by Dr. Martinez and antibiotics changed to ceftriaxone and vancomycin was continued. Patient will require most likely PICC placement once blood cultures are clear. Eliquis will need to be held for this procedureand patient started on low dose and heparin drip which was start on this evening and continue until patient has her line placed. Patient states that she does not want to go to rehab and is planning to return home with homecare. IV fluids will be discontinued. Patient will be transferred to the [facility] floor.. 03/22: Patient denies having any fever or chills. She denies pain to the chest. She is requesting something for sleep and melatonin will be added. Plan is for patient to obtain PICC line on Sunday. Her last dose of eliquis was on morning. Repeat blood cultures from March 21 are negative. 03/23: Patient states that left breast is less red. She denies any chest pain, shortness of breath. No fever or chills. She states she slept better with the melatonin last night. We are still planning for PICC line placement on Sunday and discharge later that day. 03/24: Patient is scheduled for PICC line placement on Sunday and plan for IV antibiotics at home and patient will follow-up in the office with Dr. Martinez. Patient had elevated blood pressure readings during the night and was given additional dose of losartan 50 mg and daily dose was increased to 100 mg. Patient was also given a dose of oral hydralazine 10 mg and 2 doses of hydralazine 20 mg IV push. Procardia has been added. Blood pressure is improving this morning. 03/25: Today hemoglobin is 9.5, potassium 3.3 will be replaced. She is scheduled for PICC line placement today. Anaerobic wound culture from the left breast is showing anaerobic gram-negative bacilli. Dr. Martinez has chosen Invanz for 2 week course. This will be changed here and Rocephin and vancomycin discontinued. Patient will be discharged later today once all arrangements are made. Her plan is to go to [facility] for IV antibiotics. Discharge diagnoses: 1. Sepsis secondary to left breast cellulitis with Streptococcus bacteremia. 2. Sharp left-sided chest pain possibly related to left breast cellulitis. 3. Emergent Hypertension 4. Hyperlipidemia. 5. Paroxysmal atrial fibrillation. 6. History of ischemic bowel status post exploratory laparotomy and hemicolectomy at [facility], [facility]. 7. History of atrial septal defect with closure in 2005 at [facility]. Discharge plan: IV antibiotics at [facility] as OP Impression and plan of care have been directed as dictated by the signing physician. Mayi Lindsay nurse practitioner acting as scribe for signing physician. Patient Condition at Discharge: Good Plan - Discharge Summary New Discharge Prescriptions: New Ertapenem [INVanz] 1 gm IVPB Q24H #14 bag Losartan [Cozaar] 100 mg PO DAILY #30 tab Melatonin 10 mg PO HS tablet NIFEdipine [Procardia] 10 mg PO TID #60 cap Continue Apixaban [Eliquis] 5 mg PO BID Escitalopram [Lexapro] 10 mg PO DAILY Metoprolol Succinate (ER) [Toprol XL] 100 mg PO DAILY Ferrous Sulfate [Iron (65 MG Elemental)] 325 mg PO DAILY Atorvastatin Calcium [Lipitor] 10 mg PO HS Furosemide [Lasix] 20 mg PO DAILY Fluticasone Nasal Hastings [Flonase Nasal Hastings] 1 spray EA NOSTRIL DAILY Discontinued Losartan [Cozaar] 50 mg PO DAILY Discharge Medication List Apixaban [Eliquis] 5 mg PO BID 11/24/16 [History] Escitalopram [Lexapro] 10 mg PO DAILY 01/12/17 [History] Ferrous Sulfate [Iron (65 MG Elemental)] 325 mg PO DAILY 12/14/17 [History] Metoprolol Succinate (ER) [Toprol XL] 100 mg PO DAILY 12/14/17 [History] Atorvastatin Calcium [Lipitor] 10 mg PO HS 03/19/18 [History] Fluticasone Nasal Hastings [Flonase Nasal [place]] 1 spray EA NOSTRIL DAILY 03/19/18 [History] Furosemide [Lasix] 20 mg PO DAILY 03/19/18 [History] Ertapenem [INVanz] 1 gm IVPB Q24H #14 bag 03/25/18 [Rx] Losartan [Cozaar] 100 mg PO DAILY #30 tab 03/25/18 [Rx] Melatonin 10 mg PO HS tablet 03/25/18 [Rx] NIFEdipine [Procardia] 10 mg PO TID #60 cap 03/25/18 [Rx] Follow up Appointment(s)/Referral(s): Luisana Quintanilla MD [Primary Care Provider] - 03/29/18 2:00 pm (Sunday) Caleb Martinez MD [STAFF PHYSICIAN] - 2 Weeks Ambulatory/Diagnostic Orders: Basic Metabolic Panel [LAB.AMB] Location: Determined By Patient Complete Blood Count w/diff [LAB.AMB] Location: Determined By Patient Discharge Disposition: HOME SELF-CARE
[2018-03-25] MEDS: ACETAMINOPHEN TAB 325 MG TAB PO PRN (12:15)
[2018-03-25] MEDS ORDERED: APIXABAN 5 MG TAB PO SCH (13:30)
--- NOTE | 2018-03-25 14:11 | IR ---
PICC LINE PLACEMENT: HISTORY: Infection requiring long-term antibiotic therapy PROCEDURE: Ultrasound and fluoroscopic guidance of PICC line placement. COMPLICATIONS: None ANESTHESIA: 1. 1% Lidocaine locally. FINDINGS/TECHNIQUE: The procedure was explained to the patient. The risks, complications, benefits and alternatives were discussed and any questions were answered. Informed consent was obtained. The patient was placed supine on the fluoroscopic table and prepped and draped in the usual sterile [facility] ion. Utilizing a 21 gauge needle and sonographic and fluoroscopic guidance, access in the vein was achieved and there is placement of a 0.018 guidewire. The vein is patent. A 4-F sheath was placed o nupur the guidewire. The guidewire and dilator were removed and a 4-F. PICC line was placed through th e sheath with the tip at the level of the SVC. The sheath was removed, the catheter was flushed and sutured into position. The patient was stable throughout the procedure and remained stable upon disc harge from the Department of Radiology. The vein puncture was patent under ultrasound. A mon scale image was obtained to document patency of the vein punctured. All elements of the maximal barrier technique were utilized. FLUOROSCOPY TIME: 0.1 minute, one image submitted IMPRESSION: Successful PICC line placement under ultrasound and fluoroscopic guidance.
--- NOTE | 2018-03-25 20:17 | P.PN ---
Subjective Progress Note Date: 03/25/18 This is a 77-year-old female patient with past medical history significant for breast cancer status post bilateral mastectomy and placement of expanders subsequently removed. Patient states she had breast surgery done by Dr. Hoffmann at [facility]. (She does not know surgeon's full name). She states one dishwashing machine operator did not work and both expanders have been subsequently removed. She states that it all started after she had a fall in her laundry room at home and the drain came out on the left breast and it has been packed ever since. She has had ongoing wound on the left side that is been packed for at least the past month and maybe 2 months. She has a slight pink yellow drainage that has been chronic and she states unchanged and the wound has closed to not being very small. She has home care in place and the wound is packed every other day. Her nurse apparently has not noticed any change in her wound. She developed chills yesterday after her nurse left. She also had left-sided sharp chest pain. She came into [facility] emergency center for evaluation. She was found to have a temperature of 102.5, normal pulse and blood pressure. White count was 9.2. EKG was a sinus rhythm with no acute ST changes. Lactic acid was 1.3, initial troponin 0.084. Urinalysis was clear with nitrate and leukoesterase negative. Chest x-ray showed no acute cardiopulmonary process. CT of the chest revealed left breast surgery. There has been removal of the left breast implant compared to old exam. Right breast implant is also removed. Atherosclerotic vascular disease. There are new compression fractures in the thoracic spine compared to old exam. No evidence of abscess. Cardiomegaly. Minimal subsegmental atelectasis at the lung bases. Patient was started on Zosyn and vancomycin, serial troponins ordered and cardiology consult and patient was admitted to the selective care unit. Patient was evaluated by cardiology and she had a recent heart catheterization in December of this year that revealed mild coronary artery disease with normal LV function. Repeat troponins were 0.31 and 0.15. Echocardiogram has been ordered. Patient has 3 sets of blood cultures obtained on March 19 that are positive for gram-positive cocci. 03/23/2018 finds the patient be doing considerably better. She continues to have some waxing and waning of her mental status but mostly she is quite clear. Her comfort is improved. Drainage in order have improved. She has no further fevers or chills. He is pleased that she is improving. Her children are present and they're updated on her status. the family's questions are answered. 03/25/2018 the patient continues to have significant improvement. Her mental status is now back to her baseline. She is ready for discharge to home this afternoon. Denies other new symptoms. No fevers or chills. Pain is under better control. No difficulties with her antibiotic therapy. Objective - Vital Signs Vital signs: Vital Signs Temp 98 F 03/25/18 05:00 Pulse 62 03/25/18 05:00 Resp 16 03/25/18 05:00 BP 115/60 03/25/18 05:00 Pulse Ox 96 03/25/18 05:00 Intake & Output 03/25/18 03/25/18 03/26/18 06:59 18:59 06:59 Intake Total 750 331.156 Balance 750 331.156 Intake: IV 175 Ertapenem 1 gm In Sodium 50 Chloride 0.9% 50 ml @ 100 mls/hr IVPB DAILY [facility] Rx #:[id number] Heparin Sodium,Porcine/ 125 D5w Pmx 25,000 unit In Dextrose/Water 1 500ml. bag @ 10.45 UNITS/KG/HR 20 mls/hr IV .Q24H [facility] Rx #:[id number] Intake, IV Titration 750 156.156 Amount Heparin Sodium,Porcine/ 500 156.156 D5w Pmx 25,000 unit In Dextrose/Water 1 500ml. bag @ 10.45 UNITS/KG/HR 20 mls/hr IV .Q24H [facility] Rx #:[id number] Vancomycin 1,500 mg In 250 Sodium Chloride 0.9% 250 ml @ 125 mls/hr IVPB Q16H [facility] Rx#:[id number] Other: Voiding Method Toilet Toilet # Voids 1 - Exam Gen: This is a 77-year-old female. She is in bed and appears to be comfortable and in no acute distress. HEENT: Head is atraumatic, normocephalic. Pupils equal, round. Sclerae is anicteric. Conjunctiva pink. Mucous members of the mouth are moist. NECK: Supple. No JVD. No lymphadenopathy. No thyromegaly. LUNGS: Clear to auscultation. No wheezes or rhonchi. No intercostal retractions. HEART: Regular rate and rhythm. No murmur. BREAST: To the left breast, dressing was removed. Noted to have serosanguineous with slight yellow tinge on the dressing. There is packing in place. She has a small open area to the medial side. there is no improvement in the erythema. Amount of drainage is markedly improved per the nursing staff and she's done well with the current packing and highly absorptive pads that are being utilized. She has less tenderness. ABDOMEN: Soft. Bowel sounds are present. No masses. No tenderness. EXTREMITIES: No pedal edema. No calf tenderness. NEUROLOGICAL: Patient is awake, alert and oriented x3. - Labs CBC & Chem 7: 03/25/18 07:14 03/25/18 07:14 Labs: Abnormal Lab Results - Last 24 Hours (Table) 03/25/18 03/25/18 03/25/18 Range/Units 07:14 07:14 07:14 RBC 3.29 L (3.80-5.40) m/uL Hgb 9.5 L (11.4-16.0) gm/dL Hct 29.7 L (34.0-46.0) % RDW 15.8 H (11.5-15.5) % APTT 49.7 H (22.0-30.0) sec Potassium 3.3 L (3.5-5.1) mmol/L Carbon Dioxide 20 L (22-30) mmol/L Glucose 102 H (74-99) mg/dL Microbiology - Last 24 Hours (Table) 03/21/18 07:58 Blood Culture - Preliminary Blood No Growth after 96 hours 03/21/18 07:16 Blood Culture - Preliminary Blood No Growth after 96 hours 03/20/18 18:00 Anaerobic Culture - Final Breast - Left Anaerobic Gm Negative Bacilli Laboratory Results WBC 5.6 k/uL (3.8-10.6) 03/25/18 07:14 RBC 3.29 m/uL (3.80-5.40) L 03/25/18 07:14 Hgb 9.5 gm/dL (11.4-16.0) L 03/25/18 07:14 Hct 29.7 % (34.0-46.0) L 03/25/18 07:14 MCV 90.3 fL (80.0-100.0) 03/25/18 07:14 MCH 28.8 pg (25.0-35.0) 03/25/18 07:14 MCHC 31.9 g/dL (31.0-37.0) 03/25/18 07:14 RDW 15.8 % (11.5-15.5) H 03/25/18 07:14 Plt Count 295 k/uL (150-450) 03/25/18 07:14 Neutrophils % 63 % 03/25/18 07:14 Lymphocytes % 21 % 03/25/18 07:14 Monocytes % 7 % 03/25/18 07:14 Eosinophils % 7 % 03/25/18 07:14 Basophils % 1 % 03/25/18 07:14 Neutrophils # 3.6 k/uL (1.3-7.7) 03/25/18 07:14 Lymphocytes # 1.2 k/uL (1.0-4.8) 03/25/18 07:14 Monocytes # 0.4 k/uL (0-1.0) 03/25/18 07:14 Eosinophils # 0.4 k/uL (0-0.7) 03/25/18 07:14 Basophils # 0.0 k/uL (0-0.2) 03/25/18 07:14 Hypochromasia Slight 03/25/18 07:14 PT 11.2 sec (9.0-12.0) 03/21/18 13:06 INR 1.2 (<1.2) H 03/21/18 13:06 APTT 49.7 sec (22.0-30.0) H 03/25/18 07:14 Sodium 140 mmol/L (137-145) 03/25/18 07:14 Potassium 3.3 mmol/L (3.5-5.1) L 03/25/18 07:14 Chloride 107 mmol/L (98-107) 03/25/18 07:14 Carbon Dioxide 20 mmol/L (22-30) L 03/25/18 07:14 Anion Gap 13 mmol/L 03/25/18 07:14 BUN 8 mg/dL (7-17) 03/25/18 07:14 Creatinine 0.80 mg/dL (0.52-1.04) 03/25/18 07:14 Est GFR (CKD-EPI)AfAm 82 (>60 ml/min/1.73 sqM) 03/25/18 07:14 Est GFR (CKD-EPI)NonAf 71 (>60 ml/min/1.73 sqM) 03/25/18 07:14 Glucose 102 mg/dL (74-99) H 03/25/18 07:14 Plasma Lactic Acid Deion 1.3 mmol/L (0.7-2.0) 03/19/18 16:10 Calcium 8.8 mg/dL (8.4-10.2) 03/25/18 07:14 Magnesium 2.0 mg/dL (1.6-2.3) 03/21/18 07:16 Total Bilirubin 0.5 mg/dL (0.2-1.3) 03/19/18 16:10 AST 24 U/L (14-36) 03/19/18 16:10 ALT 27 U/L (9-52) 03/19/18 16:10 Alkaline Phosphatase 101 U/L (38-126) 03/19/18 16:10 Total Creatine Kinase 34 U/L (30-135) 03/20/18 04:41 CK-MB (CK-2) 0.7 ng/mL (0.0-2.4) 03/20/18 04:41 CK-MB (CK-2) Rel Index 2.1 03/20/18 04:41 Troponin I 0.154 ng/mL (0.000-0.034) H* 03/20/18 04:41 Total Protein 7.0 g/dL (6.3-8.2) 03/19/18 16:10 Albumin 3.8 g/dL (3.5-5.0) 03/19/18 16:10 Triglycerides 66 mg/dL (<150) 03/20/18 04:41 Cholesterol 100 mg/dL (<200) 03/20/18 04:41 LDL Cholesterol, Calc 41 mg/dL (0-99) 03/20/18 04:41 HDL Cholesterol 46 mg/dL (40-60) 03/20/18 04:41 Urine Color Light Yellow 03/19/18 16:10 Urine Appearance Clear (Clear) 03/19/18 16:10 Urine pH 6.5 (5.0-8.0) 03/19/18 16:10 Ur Specific [place] 1.008 (1.001-1.035) 03/19/18 16:10 Urine Protein Negative (Negative) 03/19/18 16:10 Urine Glucose (UA) Negative (Negative) 03/19/18 16:10 Urine Ketones Negative (Negative) 03/19/18 16:10 Urine Blood Trace (Negative) H 03/19/18 16:10 Urine Nitrite Negative (Negative) 03/19/18 16:10 Urine Bilirubin Negative (Negative) 03/19/18 16:10 Urine Urobilinogen <2.0 mg/dL (<2.0) 03/19/18 16:10 Ur Leukocyte Esterase Negative (Negative) 03/19/18 16:10 Urine RBC 7 /hpf (0-5) H 03/19/18 16:10 Urine WBC 3 /hpf (0-5) 03/19/18 16:10 Ur Squamous Epith Cells 1 /hpf (0-4) 03/19/18 16:10 Urine Bacteria Few /hpf (None) H 03/19/18 16:10 Hyaline Casts 3 /lpf (0-2) H 03/19/18 16:10 Stool Occult Blood Negative (Negative) 03/24/18 00:35 Vancomycin Trough 17.0 ug/mL 03/22/18 21:02 Microbiology 03/21/18 07:58 Blood Blood Culture - Preliminary No Growth after 96 hours 03/21/18 07:16 Blood Blood Culture - Preliminary No Growth after 96 hours 03/20/18 18:00 Breast - Left Anaerobic Culture - Final Anaerobic Gm Negative Bacilli 03/20/18 18:00 Breast - Left Gram Stain - Final 03/20/18 18:00 Breast - Left Wound Culture - Final 03/19/18 16:10 Urine,Voided Urine Culture - Final Escherichia coli Klebsiella pneumoniae 03/19/18 16:00 Blood Blood Culture Gram Stain - Final 03/19/18 16:00 Blood Blood Culture - Final Strep agalactiae - (group b) 03/19/18 16:34 Blood Blood Culture Gram Stain - Final 03/19/18 16:34 Blood Blood Culture - Final Strep agalactiae - (group b) 03/19/18 16:00 Blood Blood Culture - Final 03/19/18 16:10 Blood Blood Culture - Final Assessment and Plan (1) Cellulitis of breast Narrative/Plan: Pleasant 77-year-old woman is known to the infectious disease service from prior significant abdominal infection in the past. Now has evidence of significant infection to her left breast with the situation as noted with the removed infected dishwashing machine operator. She barely is much more awake and interactive than when she was having high-grade fever of 102.5. He has noted the patient has evidence of high-grade bacteremia on the basis of significant infection to the left anterior chest wall with significant amounts of drainage, cultures obtained of this drainage. Blood cultures already however have gram-positive cocci in chains highly suggestive of an extensive streptococcal infection. Antibiotic therapy with vancomycin has been started and will add and Rocephin until we have further culture data. Follow blood cultures are requested. Local wound care with the Aquacel silver dressing has been requested to the left breast and ABD pads to absorb the drainage. Bacteremia clears will need IV access for outpatient intravenous antibiotic therapy which potentially could be done at the hospital which is close to her home. 03/23/2018 patient started to show some recovery. She is definitely feeling better is not quite yet at her baseline. The patient does have evidence of possible cauterization admission with group B strep cultures and one they are now negative. It is planned at this time for PICC line replaced Sunday for blood cultures remain negative, her outlook was was placed on hold till then. Plan at this time will be for the patient to utilize an outpatient intravenous antibiotic therapy. In the home setting where the local hospital to her home. Her leukocytosis has improved. Her altered mental status is also improved. have home care so that the ulceration on her breast can be packed and monitored in the setting with follow-up in the office. 03/25/2018 patient has had a significant improvement in the last couple of days. She is ready for discharge home today. The blood cultures finalize with evidence of the group B strep that clear with antibiotic therapy. Urine cultured evidence of E. coli and klebsiella pneumoniae. Breasts cultured with anaerobic gram-negative bacilli. With the many positive cultures and her current good response would plan on utilizing ertapenem 1 g IV piggyback daily at home at least for the next 2 weeks because of the positive blood cultures related to the significant infection of her left breast after her multiple surgeries. She understands it is imperative that she follows up with her plastic surgeon in the future. She does not have the luxury not to continue to follow-up with them at this time especially since she's had such difficulties. He must be able to see how she is doing and offer further follow-up especially if any further surgical debridements will be needed. Patient is instructed other surgeons would not want to flower picker the care at this time. She will follow in the office at the end of her antibiotic therapy. Family will be helping her at home Status: Acute Code(s): N61.0 - MASTITIS WITHOUT ABSCESS SNOMED Code(s): 25314558 (2) Breast cancer Status: Chronic Priority: Medium Code(s): C50.919 - MALIGNANT NEOPLASM OF UNSP SITE OF UNSPECIFIED FEMALE BREAST SNOMED Code(s): 518369699
--- NOTE | 2018-03-26 15:42 | CDI ---
Last Revision, September 2017 Documentation Clarification Form Date: 03/26/19 From: Carlota Sabino Andree Dana, [place] Hours-8:30 am & 5 pm Jose Admit Date: 03/19/2018 Patient Name: Cat Overton Visit Number: [id number] Discharge Date: 03/25/18 ATTENTION: The Clinical Documentation Specialists (CDI) and [facility] Coding Staff appreciate your assistance in clarifying documentation. Please respond to the clarification below the line at the bottom and electronically sign. The CDI & [facility] Coding staff will review the response and follow-up if needed. Please note: Queries are made part of the Legal Health Record. If you have any questions, please contact the author of this message via ITS. Dr. Caleb Martinez Altered mental status was documented in the 03/23 & 03/25 progress note. Patient history/risk factors: Sepsis, breast cellulitis Clinical Indicators: "She barely is much more awake and interactive than when she was having high-grade fever of 102.5." see 03/23 PN Labs: blood cultures- strept group B Treatment: IV Vanco & Rocephin In your professional opinion, please clarify the etiology of the altered mental status, if known. Delirium (specify cause): Dementia (if know, specify Type and if with/without Behavioral Disturbance) Encephalopathy (specify Type and Underlying Medical Illness) Other condition (please specify) Unable to determine MTDD
== END 2018-03-25 18:40 | disposition home health service (06) | DRG 872 ==
LOC: EC 15:15 → 6SEL 19:57 → 5MS5E 03-21 12:43
PROVIDERS: ADMIT Internal Medicine; ATTEND Internal Medicine
PROC: 02HV33Z Insertion of Infusion Device into Superior Vena Cava, Percutaneous Approach (ICD-10-PCS; principal; 2018-03-25 13:45)
DX: A40.1 Sepsis due to streptococcus, group B (principal); M48.54XA Collapsed vertebra, not elsewhere classified, thoracic region, initial encounter for fracture; I48.0 Paroxysmal atrial fibrillation; I27.20 Pulmonary hypertension, unspecified; N61.0 Mastitis without abscess; I45.10 Unspecified right bundle-branch block; I25.10 Atherosclerotic heart disease of native coronary artery without angina pectoris; I10 Essential (primary) hypertension; E78.5 Hyperlipidemia, unspecified; R77.9 Abnormality of plasma protein, unspecified; K21.9 Gastro-esophageal reflux disease without esophagitis; Z79.01 Long term (current) use of anticoagulants; Z79.51 Long term (current) use of inhaled steroids; Z79.899 Other long term (current) drug therapy; Z85.3 Personal history of malignant neoplasm of breast; Z90.49 Acquired absence of other specified parts of digestive tract; Z98.42 Cataract extraction status, left eye; Z90.13 Acquired absence of bilateral breasts and nipples; Z98.86 Personal history of breast implant removal; Z98.41 Cataract extraction status, right eye; Z97.2 Presence of dental prosthetic device (complete) (partial); Z87.891 Personal history of nicotine dependence; Z87.74 Personal history of (corrected) congenital malformations of heart and circulatory system; Z83.3 Family history of diabetes mellitus; Z82.49 Family history of ischemic heart disease and other diseases of the circulatory system; Z80.9 Family history of malignant neoplasm, unspecified
CPT/HCPCS: 36415; 36569; 71046; 71260; 76937; 77001; 80048; 80053; 80061; 80202; 81001; 82272; 82550; 82553; 83605; 83735; 84484; 85025; 85027; 85610; 85730; 87040; 87070; 87075; 87077; 87086; 87186; 87205; 93005; 93306; 94760; 96365; 96366; 99285

== ENCOUNTER 2018-05-29 05:58 | Day surgery (SDC) | payer MEDICARE ==
[2018-05-20 16:15] VITALS: BMI 29.3
[~2018-05-29 05:58] MED LIST changes: -ENOXAPARIN 40 MG/0.4 ML SYRINGE SQ STA; -GLYCOPYRROLATE 0.2 MG/ML 2 ML VIAL ONE; -HYDROcodone/APAP 7.5-325MG 1 EACH TAB PO PRN; -LACTATED RINGERS 1,000 ML IV ONE; -LIDOCAINE 1% INJ 10MG/ML (20 ML MDV) ONE; +MIDAZOLAM 2 MG/2 ML VIAL IV PRN; -MIDAZOLAM 2 MG/2 ML VIAL ONE; -MORPHINE SULFATE 10 MG/ML SYRINGE IVP ONE; -MORPHINE SULFATE 4MG/4ML SYRG IV PRN; -NEOSTIGMINE 1 MG/ML 10 ML VIAL ONE; -PROPOFOL 10 MG/ML 20 ML VIAL IV ONE; -ROCURONIUM BROMIDE 10 MG/ML 10 ML VIAL IV ONE; -SUCCINYLCHOLINE CHLORIDE 100 MG/5 ML SYR IV ONE; -diphenhydrAMINE 50 MG/ML 1 ML VIAL IVP ONE; -fentaNYL (PF) 50 MCG/ML 2 ML AMP IVP ONE; -fentaNYL (PF) 50 MCG/ML 2 ML AMP ONE; -hydrALAZINE HCL 20 MG/ML 1 ML VIAL IVP ONE; -hydrALAZINE HCL 20 MG/ML 1 ML VIAL ONE
[2018-05-29 06:43] VITALS: RESP 16
[2018-05-29] MEDS ORDERED: LIDOCAINE 1% 20 ML VIAL (10MG/ML) FOR IV START INTRADERMA ONE (06:49)
[2018-05-29 07:27] LABS: INR 1.2 (<1.2); Prothrombin Time 11.1 sec (9.0-12.0)
[2018-05-29] MEDS ORDERED: LIDOCAINE 1% INJ 10MG/ML (20 ML MDV) ONE (07:40)
[2018-05-29] MEDS ORDERED: GLYCOPYRROLATE 0.2 MG/ML 2 ML VIAL ONE (07:40)
[2018-05-29] MEDS ORDERED: PROPOFOL 10 MG/ML 20 ML VIAL IV ONE (07:40)
[2018-05-29] MEDS ORDERED: NEOSTIGMINE 1 MG/ML 10 ML VIAL ONE (07:40)
[2018-05-29] MEDS ORDERED: SUCCINYLCHOLINE CHLORIDE 100 MG/5 ML SYR IV ONE (07:40)
[2018-05-29] MEDS ORDERED: ROCURONIUM BROMIDE 10 MG/ML 10 ML VIAL IV ONE (07:40)
[2018-05-29] MEDS ORDERED: MIDAZOLAM 2 MG/2 ML VIAL ONE (07:40)
[2018-05-29] MEDS ORDERED: fentaNYL (PF) 50 MCG/ML 2 ML AMP ONE (07:40)
[2018-05-29] MEDS ORDERED: LACTATED RINGERS 1,000 ML IV ONE (09:23)
[2018-05-29 11:34] VITALS: TEMP 96.8
[2018-05-29] MEDS: fentaNYL (PF) 50 MCG/ML 2 ML AMP IV PRN ×2 (11:37→11:53)
[2018-05-29] MEDS: HYDROmorphone 1 MG/ML 1 ML SYRINGE IVP ONE ×4 (12:02→12:54)
[2018-05-29] MEDS ORDERED: HYDROcodone/APAP 5-325MG 1 EACH TAB PO ONE (14:10)
[2018-05-29 16:30] VITALS: BP 127/55; PULSE 54
--- NOTE | 2018-05-29 21:51 | OP ---
OPERATIVE REPORT DATE OF PROCEDURE: May 29, 2018. SURGEON: Dr. Gerardo Christianson. PREOPERATIVE DIAGNOSES:: 1. 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 2. Acquired deformity left reconstructed breast and left chest wall. POSTOPERATIVE DIAGNOSES:: 1. 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 2. Acquired deformity of left reconstructed breast and left chest wall. OPERATION:: Excision of right and left reconstructed breast and chest wall deformities with closure via local advancement flap, 317 cm2. ESTIMATED BLOOD LOSS:: 150 mL. SPECIMEN TAKEN:: OPERATIVE INDICATIONS: The patient is a 77-year-old female who has undergone bilateral mastectomy for treatment of breast cancer with immediate reconstruction via tissue rail car mechanic technique. The patient's postoperative course was complicated by other severe comorbidities requiring additional surgeries unrelated to her breast cancer. Ultimately, once she recovered from those problems, she proceeded with expansion. Expansion was also complicated which required placement of rail car mechanic, completed expansion, but was unable to proceed with placement of tissue expanders and therefore the expanders were removed. The patient's healing process was then complicated by wound healing problems. She has been left with a significant scar and contour deformities of the right and left reconstructed breasts and chest wall associated with pain, discomfort and intertrigo due to the creasing of the scar formation. She was counseled as to potential options of management for her situation, including living with her condition, but elected to proceed with further surgery for excision of the deformities of the reconstructed breast and chest wall bilaterally with immediate closure via advancement flaps. The patient understands the potential risks and complications are present including, but not limited to, wound healing problems, infection, hematoma, seroma, among others. She has requested to perform the surgery. NARRATIVE:: The patient is seen, presurgical area markings made, procedure reviewed. All questions were answered. She was transported to the operating room, where general tracheal anesthesia was established. She was then positioned lateral with the left side down using positioning auguste bag. Axillary roll, foam and gel pads were positioned and she was prepped and draped in the usual fashion. The right chest wall reconstructed breast deformity markings were now re-outlined using a skin marker. Following the diagram that was placed, full-thickness skin incisions were made, dividing the skin in full- thickness fashion followed by cauterization to divide subcutaneous tissue to maintain hemostasis. Subcutaneous tissue was then divided down to muscle fascial layers of the chest wall and reconstructed breast area. Scar deformity, redundant skin and subcutaneous tissue in this area as well were excised off the fascial layer using cauterization. Due to the patient's position and body habitus, the entire area involving the right chest wall could not be excised, as it measured 38 x 4 cm2. However, the portion accessible through this approach was excised and reserved on the back table for later tissue weights. Irrigation was performed, hemostasis maintained with cauterization. The wound was temporarily closed with cindy after extensive dissection, creating a cephalad base flap of skin and subcutaneous tissue. The very posterior extent of this area along the posterior chest wall was closed, approximating Taz's layer using inverted interrupted 4-0 Monocryl alternating with 2-0 Vicryl in the deep layer followed by approximating deep dermis using inverted interrupted 4-0 Monocryl and then placed cindy of interrupted skin. This was approximating this portion only for the areas that could not be accessed for closure once the patient was repositioned supine. A Vi-Drape was now used to cover the surgical field and wound site present. She was repositioned on right decubitus, again using same position method. We prepped and draped and the left-sided deformity and scar tissue were excised. Again, the preoperative markings were re-confirmed with a skin marker. The defect on the left side was slightly different in size, measuring 37 x 5 cm2. Incision made following diagrams placed, dividing skin in full-thickness fashion with a 10 blade scalpel followed by use of cauterization to maintain hemostasis. Incision was continued until reaching the muscle fascial layer. The scar tissue deformity, redundant skin and subcutaneous tissue were now excised off the chest wall, as much as could be excised through this positioning and the excised tissue from left side was reserved on the back table. Extensive dissection was required to elevate a skin and subcutaneous tissue flap based in cephalad fashion as was done on the right side. This was done with cauterization. The flap was deep to Taz's piano player muscle fascia of the chest wall. The very posterior section on the left side was closed as it was done on the right, approximating Taz's layer using inverted interrupted 2-0 Vicryl alternating with 4-0 Monocryl for the deep fascial layer, followed by approximation of the deep dermis using inverted interrupted 4-0 Monocryl and then placement of cindy. The patient was repositioned supine. The portion of the deformity now and the reconstructed right and left breasts visible through this positioning were now excised. Returning to the right side, the the remaining defect was excised following the diagrams placed preoperatively, making a full-thickness skin incision with a 10 blade scalpel, dividing the skin in full-thickness fashion followed by the use of cauterization to incise the subcutaneous tissue down to muscle fascial layers. Scar tissue was thicker in this area. Once the deformity on the right side was excised, the tissue from the right side was weighed and measured at 680 g. This tissue was sent to Pathology for permanent evaluation. Hemostasis was maintained with cautery. Irrigation was performed. The left-sided deformity excision was now completed following the diagram placed. Incision made with a 10 blade scalpel, dividing the skin in full-thickness fashion, followed by the use of cauterization to maintain hemostasis. Incised the subcutaneous tissue layer down to the muscle fascia and excised the deforming scar tissue present. This tissue was combined with the first specimen taken from the left side and also weighed, measuring 550 g. This tissue was also sent to Pathology, labeled left reconstructed breast and chest wall tissue. Hemostasis maintained with cautery. Irrigation was performed on each side. Cephalad base advancement flaps were now developed on each side off the chest wall by dissecting skin and subcutaneous tissue just off the muscle fascia. Again, the defect for the right side measured 38.4 cm2 and the left side 37 x 5 cm2. Once the advancement flaps were developed, the cephalad advancement flaps were advanced in an inferior fashion and secured at Taz's layer after first placing some drains on each side. 19 round Melo channel drains were placed in the surgical field and brought out through separate stab incisions in the epigastric area on each side and suture placed with 2-0 Prolene. The drains were guided into the surgical field and flaps, being kept at appropriate length. The advancement flaps were now inset at Taz's layer using inverted interrupted 2-0 Vicryl alternating with 4-0 Monocryl followed by approximation of the deep dermis using inverted interrupted 4-0 Monocryl and then closure of the skin with interrupted cindy. The surgical craven were now cleansed with saline, dried. Postoperative bandages placed using Kerlix squares, ABD pad secured with 3M Medipore tape. The drains were connected to closed bulb suction and patent. The patient was then awakened from her anesthetic, extubated and transferred to the recovery room in good condition with stable vital signs. There were no complications. SHAGUFTA / JUSTINN: [id number] /
[2018-05-30] MEDS ORDERED: LOSARTAN 50 MG TAB PO SCH (09:00)
== END 2018-05-29 16:18 | disposition home or self-care (01) ==
LOC: OR 05:58
PROVIDERS: ATTEND Plastic Surgery
DX: N65.0 Deformity of reconstructed breast (principal); M95.4 Acquired deformity of chest and rib; B37.2 Candidiasis of skin and nail; C50.112 Malignant neoplasm of central portion of left female breast; I25.10 Atherosclerotic heart disease of native coronary artery without angina pectoris; I10 Essential (primary) hypertension; I27.20 Pulmonary hypertension, unspecified; E78.5 Hyperlipidemia, unspecified; E53.1 Pyridoxine deficiency; Z87.891 Personal history of nicotine dependence; I48.0 Paroxysmal atrial fibrillation; Z79.01 Long term (current) use of anticoagulants; K44.9 Diaphragmatic hernia without obstruction or gangrene; Z79.82 Long term (current) use of aspirin; Z79.51 Long term (current) use of inhaled steroids; Z79.899 Other long term (current) drug therapy
CPT/HCPCS: 14301; 14302 ×8; 84132; 85610; J2250; J1100; J2710; J2405; J2001; J3010; J1170; J0330; J2704; J0690; 88305

== ENCOUNTER 2018-06-20 17:35 | Inpatient (IN) | payer MEDICARE ==
[2018-06-20] MEDS ORDERED: PIPERACILLIN-TAZOBACTAM 3.375 GM in DEXTROSE/WATER 1 50ML.BAG IVPB STA (17:51)
[2018-06-20] MEDS ORDERED: MORPHINE SULFATE 2 MG/ML SYRINGE IVP STA (17:52)
--- NOTE | 2018-06-20 18:03 | ED ---
General Adult HPI - General Chief complaint: Recheck/Abnormal Lab/Rx Stated complaint: ABNORMAL LABS Time Seen by Provider: 06/20/18 17:45 Source: patient, RN notes reviewed Mode of arrival: wheelchair Limitations: no limitations - History of Present Illness Initial comments: This is a 77-year-old female presents emergency Department complaining of having a positive blood culture. Patient states she had a mastectomy by Dr. Ramandeep Moura and then had spacers placed for implants at a later date. Patient states the spacers did not work so they remove them about 4 weeks ago and the area around the cindy is extremely red swollen and tender and she had blood cultures drawn recently and was told today that they were positive to get to the hospital for antibiotics. Patient states the pain near the staple sites bilaterally is red and draining a little and is very tender to palpation. Patient denies any fever or chills. Patient denies chest pain difficult to breathing. Patient denies any abdominal pain. - Related Data Home Medications Medication Instructions Recorded Confirmed Apixaban [Eliquis] 5 mg PO BID 11/24/16 06/20/18 Escitalopram [Lexapro] 10 mg PO QAM 01/12/17 06/20/18 Ferrous Sulfate [Iron (65 MG 325 mg PO DAILY 12/14/17 06/20/18 Elemental)] Metoprolol Succinate (ER) [Toprol 100 mg PO QAM 12/14/17 06/20/18 XL] Atorvastatin Calcium [Lipitor] 10 mg PO HS 03/19/18 06/20/18 Fluticasone Nasal [place] [Flonase 1 spray EA NOSTRIL DAILY PRN 03/19/18 06/20/18 Nasal [place]] Furosemide [Lasix] 20 mg PO DAILY 03/19/18 06/20/18 Losartan [Cozaar] 100 mg PO QAM 05/20/18 06/20/18 Fluconazole [Diflucan] 100 mg PO DAILY 05/24/18 06/20/18 Nystatin [Nystop] 1 applic TOPICAL TID 05/24/18 06/20/18 Previous Rx's Medication Instructions Recorded Melatonin 10 mg PO HS tablet 03/25/18 NIFEdipine [Procardia] 10 mg PO TID #60 cap 03/25/18 HYDROcodone/APAP 7.5-325MG [[place] 2 tab PO Q4H PRN 3 Days #30 tab 05/29/18 7.5-325] Allergies Allergy/AdvReac Type Severity Reaction Status Date / Time No Known Allergies Allergy Verified 06/20/18 18:36 Review of Systems ROS Statement: Those systems with pertinent positive or pertinent negative responses have been documented in the HPI. ROS Other: All systems not noted in ROS Statement are negative. 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 Bilateral mastectomy 09/22, bowel resection 10/2016, heart cath 12/13/17, tiff cataracts Past Anesthesia/Blood Transfusion Reactions: Previous Problems w/ Anesthesia, Postoperative Nausea & Vomiting (PONV) Additional Past Anesthesia/Blood Transfusion Reaction / Comment(s): PATIENT STATES HER TEETH IMPLANTS WERE DISLODGED DURING INTUBATION AND SHE SWALLOWED A TOOTH 2015 Past Psychological History: No Psychological Hx Reported Smoking Status: Former smoker Past Alcohol Use History: None Reported Past Drug Use History: None Reported - Past Family History Mother Family Medical History: Diabetes Mellitus Father Family Medical History: Myocardial Infarction (VT) Additional Family Medical History / Comment(s): heart problems Brother(s) Family Medical History: Cancer General Exam - General Exam Comments Initial Comments: GENERAL: Patient is well-developed and well-nourished. Patient is nontoxic and well- hydrated and is in mild distress. ENT: Neck is soft and supple. No significant lymphadenopathy is noted. Oropharynx is clear. Moist mucous membranes. Neck has full range of motion without eliciting any pain. EYES: The sclera were anicteric and conjunctiva were pink and moist. Extraocular movements were intact and pupils were equal round and reactive to light. Eyelids were unremarkable. PULMONARY: Unlabored respirations. Good breath sounds bilaterally. No audible rales rhonchi or wheezing was noted. CARDIOVASCULAR: There is a regular rate and rhythm without any murmurs gallops or rubs. Patient has cindy on the bilateral chest area around the cindy a very erythematous warm and tender to palpation there is some areas especially on the left that has some purulent drainage. ABDOMEN: Soft and nontender with normal bowel sounds. SKIN: Skin is clear with no lesions or rashes and otherwise unremarkable. NEUROLOGIC: Patient is alert and oriented x3. Cranial nerves II through XII are grossly intact. Motor and sensory are also intact. Normal speech, volume and content. Symmetrical smile. MUSCULOSKELETAL: Normal extremities with adequate strength and full range of motion. LYMPHATICS: No significant lymphadenopathy is noted PSYCHIATRIC: Normal psychiatric evaluation. Limitations: no limitations Course Vital Signs 06/20/18 06/20/18 17:42 19:01 Temperature 98.3 F Pulse Rate 70 74 Respiratory 18 16 Rate Blood Pressure 139/69 151/68 O2 Sat by Pulse 96 Oximetry Medical Decision Making - Medical Decision Making EKG shows normal sinus rhythm at 70 bpm MI interval 134 QRS is 92 QT interval 410 QTC is 442. Patient's EKG shows no ST segment elevation or depression I spoke with Dr. Socorro Quintanilla wanted the patient admitted I will be consulting Dr. Juan Wilson. I will be giving the patient Librado. - Lab Data Result diagrams: 06/20/18 18:49 06/20/18 18:49 Lab Results 06/20/18 06/20/18 06/20/18 Range/Units 18:49 18:49 18:49 WBC 8.1 (3.8-10.6) k/uL RBC 3.25 L (3.80-5.40) m/uL Hgb 9.7 L (11.4-16.0) gm/dL Hct 30.5 L (34.0-46.0) % MCV 93.8 (80.0-100.0) fL MCH 29.8 (25.0-35.0) pg MCHC 31.8 (31.0-37.0) g/dL RDW 14.2 (11.5-15.5) % Plt Count 284 (150-450) k/uL Neutrophils % 74 % Lymphocytes % 10 % Monocytes % 8 % Eosinophils % 7 % Basophils % 0 % Neutrophils # 5.9 (1.3-7.7) k/uL Lymphocytes # 0.8 L (1.0-4.8) k/uL Monocytes # 0.6 (0-1.0) k/uL Eosinophils # 0.5 (0-0.7) k/uL Basophils # 0.0 (0-0.2) k/uL Hypochromasia Slight PT 10.5 (9.0-12.0) sec INR 1.1 (<1.2) APTT 31.3 H (22.0-30.0) sec Sodium 136 L (137-145) mmol/L Potassium 4.3 (3.5-5.1) mmol/L Chloride 103 (98-107) mmol/L Carbon Dioxide 19 L (22-30) mmol/L Anion Gap 14 mmol/L BUN 31 H (7-17) mg/dL Creatinine 1.32 H (0.52-1.04) mg/dL Est GFR (CKD-EPI)AfAm 45 (>60 ml/min/1.73 sqM) Est GFR (CKD-EPI)NonAf 39 (>60 ml/min/1.73 sqM) Glucose 93 (74-99) mg/dL Plasma Lactic Acid Deion (0.7-2.0) mmol/L Calcium 9.0 (8.4-10.2) mg/dL Total Bilirubin 0.6 (0.2-1.3) mg/dL AST 33 (14-36) U/L ALT 46 (9-52) U/L Alkaline Phosphatase 150 H (38-126) U/L Total Protein 7.1 (6.3-8.2) g/dL Albumin 3.6 (3.5-5.0) g/dL Urine Color Urine Appearance (Clear) Urine pH (5.0-8.0) Ur Specific [place] (1.001-1.035) Urine Protein (Negative) Urine Glucose (UA) (Negative) Urine Ketones (Negative) Urine Blood (Negative) Urine Nitrite (Negative) Urine Bilirubin (Negative) Urine Urobilinogen (<2.0) mg/dL Ur Leukocyte Esterase (Negative) Urine RBC (0-5) /hpf Urine WBC (0-5) /hpf Ur Squamous Epith Cells (0-4) /hpf Hyaline Casts (0-2) /lpf 06/20/18 06/20/18 Range/Units 18:49 19:37 WBC (3.8-10.6) k/uL RBC (3.80-5.40) m/uL Hgb (11.4-16.0) gm/dL Hct (34.0-46.0) % MCV (80.0-100.0) fL MCH (25.0-35.0) pg MCHC (31.0-37.0) g/dL RDW (11.5-15.5) % Plt Count (150-450) k/uL Neutrophils % % Lymphocytes % % Monocytes % % Eosinophils % % Basophils % % Neutrophils # (1.3-7.7) k/uL Lymphocytes # (1.0-4.8) k/uL Monocytes # (0-1.0) k/uL Eosinophils # (0-0.7) k/uL Basophils # (0-0.2) k/uL Hypochromasia PT (9.0-12.0) sec INR (<1.2) APTT (22.0-30.0) sec Sodium (137-145) mmol/L Potassium (3.5-5.1) mmol/L Chloride (98-107) mmol/L Carbon Dioxide (22-30) mmol/L Anion Gap mmol/L BUN (7-17) mg/dL Creatinine (0.52-1.04) mg/dL Est GFR (CKD-EPI)AfAm (>60 ml/min/1.73 sqM) Est GFR (CKD-EPI)NonAf (>60 ml/min/1.73 sqM) Glucose (74-99) mg/dL Plasma Lactic Acid Deion 1.7 (0.7-2.0) mmol/L Calcium (8.4-10.2) mg/dL Total Bilirubin (0.2-1.3) mg/dL AST (14-36) U/L ALT (9-52) U/L Alkaline Phosphatase (38-126) U/L Total Protein (6.3-8.2) g/dL Albumin (3.5-5.0) g/dL Urine Color Yellow Urine Appearance Clear (Clear) Urine pH 5.5 (5.0-8.0) Ur Specific [place] 1.014 (1.001-1.035) Urine Protein 1+ H (Negative) Urine Glucose (UA) Negative (Negative) Urine Ketones Negative (Negative) Urine Blood Trace H (Negative) Urine Nitrite Negative (Negative) Urine Bilirubin Negative (Negative) Urine Urobilinogen 2.0 (<2.0) mg/dL Ur Leukocyte Esterase Moderate H (Negative) Urine RBC 2 (0-5) /hpf Urine WBC 8 H (0-5) /hpf Ur Squamous Epith Cells <1 (0-4) /hpf Hyaline Casts 7 H (0-2) /lpf Disposition Clinical Impression: Postoperative infection of breast incision Disposition: ADMITTED IP TO THIS HOSP Referrals: Luisana Quintanilla MD [Primary Care Provider] - 1-2 days Time of Disposition: 20:19
[2018-06-20 18:56] LABS: Basophils % (A) 0 %; Eosinophils # (A) 0.5 k/uL (0-0.7); Eosinophils % (A) 7 %; HCT 30.5 % (34.0-46.0); HGB 9.7 gm/dL (11.4-16.0); Hypochromasia Slight; Lymphocytes # (A) 0.8 k/uL (1.0-4.8); Lymphocytes % (A) 10 %; MCH 29.8 pg (25.0-35.0); MCHC 31.8 g/dL (31.0-37.0); MCV 93.8 fL (80.0-100.0); Mean Platelet Volume 6.6; Monocytes # (A) 0.6 k/uL (0-1.0); Monocytes % (A) 8 %; Neutrophils # (A) 5.9 k/uL (1.3-7.7); Neutrophils % (A) 74 %; Platelet Count 284 k/uL (150-450); RBC 3.25 m/uL (3.80-5.40); RDW 14.2 % (11.5-15.5); WBC 8.1 k/uL (3.8-10.6)
[2018-06-20] MEDS: SODIUM CHLORIDE 0.9% 500 ML 500 ML IV SCH ×2 (18:57→18:58)
[2018-06-20 19:12] LABS: Albumin 3.6 g/dL (3.5-5.0); Potassium 4.3 mmol/L (3.5-5.1); Total Bilirubin 0.6 mg/dL (0.2-1.3); Total Protein 7.1 g/dL (6.3-8.2)
[2018-06-20 19:17] LABS: INR 1.1 (<1.2); Partial Thromboplastin Time 31.3 sec (22.0-30.0); Prothrombin Time 10.5 sec (9.0-12.0)
[2018-06-20 19:51] LABS: Appearance,Urine Clear (Clear); Bilirubin,Urine Negative (Negative); Blood,Urine Trace (Negative); Color,Urine Yellow; Glucose,Urine (UA) Negative (Negative); Hyaline Casts,Urine 7 /lpf (0-2); Ketones,Urine Negative (Negative); Leukocyte Esterase,Urine Moderate (Negative); Nitrite,Urine Negative (Negative); PH, Urine 5.5 (5.0-8.0); Protein,Urine 1+ (Negative); RBC,Urine 2 /hpf (0-5); Specific Gravity,Urine 1.014 (1.001-1.035); Squamous Epithelial Cell,Urine <1 /hpf (0-4); WBC,Urine 8 /hpf (0-5)
[2018-06-20] MEDS ORDERED: VANCOMYCIN IV PER PHARMACY 1 EACH MISC MISCELLANE PRN (20:22)
[2018-06-20] MEDS ORDERED: VANCOMYCIN 1,500 MG in SODIUM CHLORIDE 0.9% 250 ML IVPB ONE (21:00)
[2018-06-20] MEDS ORDERED: HYDROmorphone 1 MG/ML 1 ML SYRINGE IVP PRN (22:02)
[2018-06-20] MEDS: SODIUM CHLORIDE 0.9% 1,000 ML IV ONE (22:18)
[2018-06-20] MEDS: APIXABAN 5 MG TAB PO SCH (23:27)
[2018-06-20] MEDS: MELATONIN 5 MG TABLET PO SCH (23:27)
[2018-06-20] MEDS: NIFEdipine 10 MG CAP PO SCH (23:27)
[2018-06-21] MEDS: APIXABAN 5 MG TAB PO SCH ×2 (09:39→20:00)
[2018-06-21] MEDS: ESCITALOPRAM 10 MG TAB PO SCH (09:39)
[2018-06-21] MEDS: LOSARTAN 50 MG TAB PO SCH (09:39)
[2018-06-21] MEDS: FUROSEMIDE 20 MG TAB PO SCH (09:39)
[2018-06-21] MEDS: METOPROLOL SUCCINATE (ER) 100 MG TAB.ER.24H PO SCH (09:39)
[2018-06-21] MEDS: NIFEdipine 10 MG CAP PO SCH ×3 (09:39→21:21)
[2018-06-21] MEDS: HYDROcodone/APAP 7.5-325MG 1 EACH TAB PO PRN ×2 (09:42→15:30)
--- NOTE | 2018-06-21 10:09 | P.CONS ---
History of Present Illness - Reason for Consult Consult date: 06/21/18 Breast infection - History of Present Illness This is a 77-year-old female patient known to ID service as she was seen in March of this year with past medical history significant for breast cancer status post bilateral mastectomy and placement of expanders subsequently removed. Patient states she had breast surgery done by Dr. Christianson at [facility]. She states one patrol community service officer did not work and both expanders have been subsequently removed. She states that it all started after she had a fall in her laundry room at home and the drain came out on the left breast and it has been packed ever since. She has had ongoing wound on the left side. She was hospitalized March 19 through March 25 and was discharged on Invanz for 14 days done at [facility]. On May 29, patient underwent excision of right and left reconstructed breast and chest wall deformities with closure via local advancement flap with Dr. Christianson at [facility]. She states the cindy are still in. She saw Dr. Christianson on Sunday and was told everything was okay and 2 drains were removed. She states she wasn't feeling well at home and her home care nurse decided to draw some blood and including blood cultures which were processed at [facility]. She was then called that her blood culture was positive and she needed to come in the hospital for evaluation. Patient states that she just has not been feeling well for some time but now documented fever or chills. She feels weak generalized malaise and lightheaded. She has had ongoing drainage from her breast wounds that his saturated through the dressing into her gown. Patient presented with a white count of 8.1, temperature max 100.2, creatinine 1.32 and baseline is 0.8. Alkaline phosphatase 150. Urinalysis was clear with leukoesterase moderate, WBCs 8 in [place] casts 7. Patient denies urinary symptoms. She was recently placed on Diflucan by Dr. Quintanilla the patient does not know why. She has been started on Rocephin and vancomycin and admitted to the Medr floor and has consult in place with Dr. Steve Moura as well. Wound culture is in progress and blood culture is status received. Review of Systems All systems: negative Constitutional: Reports fatigue, Reports lethargy, Reports malaise, Reports poor appetite, Reports weakness, Denies chills, Denies fever, Denies sweats Eyes: denies blurred vision, denies pain Ears, nose, mouth and throat: Denies dental pain, Denies dysphagia, Denies headache, Denies mouth pain, Denies sore throat, Denies vertigo Breasts: Reports as per HPI Cardiovascular: Reports lightheadedness, Denies chest pain, Denies decreased exercise tolerance, Denies dyspnea on exertion, Denies edema, Denies leg edema, Denies shortness of breath, Denies syncope Respiratory: Denies cough, Denies cough with sputum, Denies dyspnea, Denies excessive sputum, Denies hemoptysis, Denies home oxygen, Denies wheezing Gastrointestinal: Reports loss of appetite, Denies abdominal pain, Denies diarrhea, Denies nausea, Denies vomiting Genitourinary: Denies dysuria, Denies hematuria, Denies urgency, Denies urinary frequency Musculoskeletal: Denies myalgias Integumentary: Denies pruritus, Denies rash Neurological: Denies numbness, Denies weakness Psychiatric: Denies anxiety, Denies depression Endocrine: Denies fatigue, Denies weight change Past Medical History Past Medical History: Atrial Fibrillation, Cancer, GERD/Reflux, Hyperlipidemia, Hypertension Additional Past Medical History / Comment(s): anemia,sepsis admitted to [facility] 2017,Hx Breast Cancer 09/22, 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 History of Any Multi-Drug Resistant Organisms: Other MDRO Past Surgical History: Bowel Resection, Breast Surgery, Heart Catheterization, Orthopedic Surgery, Tubal Ligation Additional Past Surgical History / Comment(s): LEFT rotator cuff repair,. Bilateral mastectomy 09/22, had reconstruction sx w/tissue expanders. may 2018 had excision rt and lt reconstructred breast/chest wall deformities. bowel resection 10/2016, heart cath 12/13/17, tiff cataracts,lower dental implants. Past Anesthesia/Blood Transfusion Reactions: Previous Problems w/ Anesthesia, Postoperative Nausea & Vomiting (PONV) Additional Past Anesthesia/Blood Transfusion Reaction / Comm: PATIENT STATES HER TEETH IMPLANTS WERE DISLODGED DURING INTUBATION AND SHE SWALLOWED A TOOTH 2016. pt stated she has recieved blood transfusion in past. no reaction to it. Smoking Status: Former smoker - Past Family History Mother Family Medical History: Myocardial Infarction ([place]) Additional Family Medical History / Comment(s): in her 80's Father Family Medical History: Myocardial Infarction ([place]) Additional Family Medical History / Comment(s): age 56 from mi Brother(s) Family Medical History: Cancer Medications and Allergies Home Medications Medication Instructions Recorded Confirmed Type Apixaban [Eliquis] 5 mg PO BID 11/24/16 06/20/18 History Escitalopram [Lexapro] 10 mg PO QAM 01/12/17 06/20/18 History Ferrous Sulfate [Iron (65 MG 325 mg PO DAILY 12/14/17 06/20/18 History Elemental)] Metoprolol Succinate (ER) [Toprol 100 mg PO QAM 12/14/17 06/20/18 History XL] Atorvastatin Calcium [Lipitor] 10 mg PO HS 03/19/18 06/20/18 History Fluticasone Nasal [place] [Flonase 1 spray EA NOSTRIL DAILY PRN 03/19/18 06/20/18 History Nasal [place]] Furosemide [Lasix] 20 mg PO DAILY 03/19/18 06/20/18 History Melatonin 10 mg PO HS tablet 03/25/18 06/20/18 Rx NIFEdipine [Procardia] 10 mg PO TID #60 cap 03/25/18 06/20/18 Rx Losartan [Cozaar] 100 mg PO QAM 05/20/18 06/20/18 History Fluconazole [Diflucan] 100 mg PO DAILY 05/24/18 06/20/18 History Nystatin [Nystop] 1 applic TOPICAL TID 05/24/18 06/20/18 History HYDROcodone/APAP 7.5-325MG [[place] 2 tab PO Q4H PRN 3 Days #30 tab 05/29/1806/20 Rx 7.5-325] Allergies Allergy/AdvReac Type Severity Reaction Status Date / Time No Known Allergies Allergy Verified 06/20/18 18:36 Physical Exam Vitals: Vital Signs Temp Pulse Pulse Resp BP BP Pulse Ox 06/21/18 05:58 100.2 F H 84 16 109/61 93 L 06/20/18 23:15 98.8 F 79 16 132/74 95 06/20/18 20:53 99.6 F 77 18 156/70 97 09/13/18 19:01 74 16 151/68 09/13/18 17:42 98.3 F 70 18 139/69 96 Intake and Output 06/20/18 06/21/18 06/21/18 22:59 06:59 14:59 Intake Total 240 Balance 240 Intake: Oral 240 Other: # Voids 1 # Bowel Movements 0 Weight 90.718 kg 94 kg Gen: This is a 77-year-old female. She is in bed and appears to be comfortable and in no acute distress. HEENT: Head is atraumatic, normocephalic. Pupils equal, round. Sclerae is anicteric. Conjunctiva pink. Mucous members of the mouth are moist. NECK: Supple. No JVD. No lymphadenopathy. No thyromegaly. LUNGS: Clear to auscultation. No wheezes or rhonchi. No intercostal retractions. HEART: Regular rate and rhythm. No murmur. BREAST: Dressings in place on the bilateral breasts. There is serous drainage bilaterally, extensive cindy under breast. Follow odor. There is edema and slight redness. 2 puncture sites from previous drains in the sternal area. ABDOMEN: Soft. Bowel sounds are present. No masses. No tenderness. EXTREMITIES: No pedal edema. No calf tenderness. NEUROLOGICAL: Patient is awake, alert and oriented x3. Cranial nerves 2 through 12 are grossly intact. Results Results: Laboratory Results WBC 8.1 k/uL (3.8-10.6) 06/20/18 18:49 RBC 3.25 m/uL (3.80-5.40) L 06/20/18 18:49 Hgb 9.7 gm/dL (11.4-16.0) L 18 18:49 Hct 30.5 % (34.0-46.0) L 18 18:49 MCV 93.8 fL (80.0-100.0) 06/20/18 18:49 MCH 29.8 pg (25.0-35.0) 18 18:49 MCHC 31.8 g/dL (31.0-37.0) 18 18:49 RDW 14.2 % (11.5-15.5) 18 18:49 Plt Count 284 k/uL (150-450) 09/13/18 18:49 Neutrophils % 74 % 06/20/18 18:49 Lymphocytes % 10 % 06/20/18 18:49 Monocytes % 8 % 06/20/18 18:49 Eosinophils % 7 % 06/20/18 18:49 Basophils % 0 % 06/20/18 18:49 Neutrophils # 5.9 k/uL (1.3-7.7) 06/20/18 18:49 Lymphocytes # 0.8 k/uL (1.0-4.8) L 06/20/18 18:49 Monocytes # 0.6 k/uL (0-1.0) 06/20/18 18:49 Eosinophils # 0.5 k/uL (0-0.7) 06/20/18 18:49 Basophils # 0.0 k/uL (0-0.2) 06/20/18 18:49 Hypochromasia Slight 06/20/18 18:49 PT 10.5 sec (9.0-12.0) 06/20/18 18:49 INR 1.1 (<1.2) 06/20/18 18:49 APTT 31.3 sec (22.0-30.0) H 06/20/18 18:49 Sodium 136 mmol/L (137-145) L 06/20/18 18:49 Potassium 4.3 mmol/L (3.5-5.1) 06/20/18 18:49 Chloride 103 mmol/L (98-107) 06/20/18 18:49 Carbon Dioxide 19 mmol/L (22-30) L 06/20/18 18:49 Anion Gap 14 mmol/L 06/20/18 18:49 BUN 31 mg/dL (7-17) H 06/20/18 18:49 Creatinine 1.32 mg/dL (0.52-1.04) H 06/20/18 18:49 Est GFR (CKD-EPI)AfAm 45 (>60 ml/min/1.73 sqM) 06/20/18 18:49 Est GFR (CKD-EPI)NonAf 39 (>60 ml/min/1.73 sqM) 06/20/18 18:49 Glucose 93 mg/dL (74-99) 06/20/18 18:49 Plasma Lactic Acid Deion 1.7 mmol/L (0.7-2.0) 06/20/18 18:49 Calcium 9.0 mg/dL (8.4-10.2) 06/20/18 18:49 Total Bilirubin 0.6 mg/dL (0.2-1.3) 06/20/18 18:49 AST 33 U/L (14-36) 06/20/18 18:49 ALT 46 U/L (9-52) 06/20/18 18:49 Alkaline Phosphatase 150 U/L (38-126) H 06/20/18 18:49 Total Protein 7.1 g/dL (6.3-8.2) 06/20/18 18:49 Albumin 3.6 g/dL (3.5-5.0) 06/20/18 18:49 Urine Color Yellow 06/20/18 19:37 Urine Appearance Clear (Clear) 06/20/18 19:37 Urine pH 5.5 (5.0-8.0) 06/20/18 19:37 Ur Specific [place] 1.014 (1.001-1.035) 06/20/18 19:37 Urine Protein 1+ (Negative) H 06/20/18 19:37 Urine Glucose (UA) Negative (Negative) 06/20/18 19:37 Urine Ketones Negative (Negative) 06/20/18 19:37 Urine Blood Trace (Negative) H 06/20/18 19:37 Urine Nitrite Negative (Negative) 06/20/18 19:37 Urine Bilirubin Negative (Negative) 06/20/18 19:37 Urine Urobilinogen 2.0 mg/dL (<2.0) 06/20/18 19:37 Ur Leukocyte Esterase Moderate (Negative) H 06/20/18 19:37 Urine RBC 2 /hpf (0-5) 06/20/18 19:37 Urine WBC 8 /hpf (0-5) H 06/20/18 19:37 Ur Squamous Epith Cells <1 /hpf (0-4) 06/20/18 19:37 Hyaline Casts 7 /lpf (0-2) H 06/20/18 19:37 CBC & Chem 7: 06/20/18 18:49 06/21/18 11:37 Labs: Abnormal Lab Results - Last 24 Hours (Table) 06/20/18 06/20/18 06/20/18 Range/Units 18:49 18:49 18:49 RBC 3.25 L (3.80-5.40) m/uL Hgb 9.7 L (11.4-16.0) gm/dL Hct 30.5 L (34.0-46.0) % Lymphocytes # 0.8 L (1.0-4.8) k/uL APTT 31.3 H (22.0-30.0) sec Sodium 136 L (137-145) mmol/L Carbon Dioxide 19 L (22-30) mmol/L BUN 31 H (7-17) mg/dL Creatinine 1.32 H (0.52-1.04) mg/dL Alkaline Phosphatase 150 H (38-126) U/L Urine Protein (Negative) Urine Blood (Negative) Ur Leukocyte Esterase (Negative) Urine WBC (0-5) /hpf Hyaline Casts (0-2) /lpf 06/20/18 Range/Units 19:37 RBC (3.80-5.40) m/uL Hgb (11.4-16.0) gm/dL Hct (34.0-46.0) % Lymphocytes # (1.0-4.8) k/uL APTT (22.0-30.0) sec Sodium (137-145) mmol/L Carbon Dioxide (22-30) mmol/L BUN (7-17) mg/dL Creatinine (0.52-1.04) mg/dL Alkaline Phosphatase (38-126) U/L Urine Protein 1+ H (Negative) Urine Blood Trace H (Negative) Ur Leukocyte Esterase Moderate H (Negative) Urine WBC 8 H (0-5) /hpf Hyaline Casts 7 H (0-2) /lpf Microbiology - Last 24 Hours (Table) 06/20/18 19:00 Gram Stain - Preliminary Breast - Right Wound Culture - Preliminary Assessment and Plan Plan: This is a 77-year-old female patient who with bacteremia secondary to cellulitis and surgical wound infection of the breasts status post recent excision of right and left reconstructed breast and chest wall deformities with closure with Dr. Wiggins. Nursing will obtain blood culture report done at [facility]. Patient is currently on Zosyn and vancomycin. Patient presented with JAYSHREE with worsening kidney function thus vancomycin will be changed to Daptomycin until culture reports are obtained. Repeat blood culture has been obtained here and wound culture is in progress. Local wound care will be addressed. Continue supportive care. Further recommendations as patient progresses. The above dictated assessment and findings were discussed with Dr. Martinez. The impression and plan of care have been directed as dictated. Mayi Lindsay nurse practitioner acting as scribe for Dr. Martinez.
[2018-06-21] MEDS ORDERED: RX INFO: IV CONTRAST WAS GIVEN 1 EACH MISC MISCELLANE PRN (11:11)
[2018-06-21] MEDS ORDERED: HYDROmorphone 1 MG/ML 1 ML SYRINGE IVP PRN (11:22)
[2018-06-21] MEDS: PIPERACILLIN-TAZOBACTAM 3.375 GM in DEXTROSE/WATER 1 50ML.BAG IVPB SCH ×2 (12:20→20:14)
[2018-06-21 12:24] LABS: Calcium 8.2 mg/dL (8.4-10.2); Potassium 4.2 mmol/L (3.5-5.1)
[2018-06-21] MEDS ORDERED: SODIUM CHLORIDE 0.9% 500 ML 500 ML IV ONE (12:32)
[2018-06-21] MEDS: SODIUM CHLORIDE 0.9% 1,000 ML IV ONE (13:11)
[2018-06-21] MEDS: DAPTOmycin 500 MG in SODIUM CHLORIDE 0.9% 50 ML IVPB SCH (13:22)
--- NOTE | 2018-06-21 13:40 | P.GSHP ---
History of Present Illness H&P Date: 06/21/18 The patient is a 77-year-old white female who was recently admitted with a complaint of erythema and drainage from bilateral chest wall incisions secondary to surgery performed to remove excess chest wall skin on [id number]. Of significance is the fact that the patient underwent a bilateral mastectomy in September 2016. At that time the patient had expanders placed for immediate reconstruction. The patient after discharge but in close proximity to her bilateral mastectomies developed ischemic bowel and required bowel resection at [facility]. She subsequently required rehab and physical therapy services. The patient's reconstruction was therefore not immediately undertaken. The patient subsequently reports trauma to the chest wall and the implants were subsequently removed. They were removed in February 2018 with the hope of putting in permanent implants. However the permanent implants were unable to be placed. The patient subsequently was admitted to the hospital in March with sepsis and left chest wall cellulitis. She was discharged home at that time with IV antibiotics. The patient's most recent surgical intervention has been in 05/29/2018 for removal of redundant tissue on the chest wall. She subsequently developed inflammation of her incisions bilaterally and was sent to [facility] for treatment. The patient states that since she has been here and on IV antibiotics the area of erythema has decreased. Past surgical history: 1. 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 Tissue expanders removed 3. Excessive skin chest wall removed Past medical history: 1. Atrial fibrillation 2. Hypertension Social history: Smoking: Negative Alcohol: Negative Drugs: Negative - Constitutional Constitutional: Denies chills, Denies fever - EENT Eyes: denies blurred vision, denies pain Ears: deny: decreased hearing Ears, nose, mouth and throat: Denies headache, Denies sore throat - Breasts Breasts: bilateral: as per HPI - Cardiovascular Comment: Atrial fibrillation, hypertension Cardiovascular: Reports as per HPI - Respiratory Respiratory: Denies cough, Denies 7 - Gastrointestinal Comment: Bowel resection secondary to ischemia - Genitourinary (Female) Comment: History of urinary tract infections - Menstruation Menstruation: Reports postmenopausal - Musculoskeletal Comment: Weakness related to prior illnesses - Integumentary Integumentary: Reports as per HPI - Neurological Comment: No tremor, no CVA Neurological: Reports as per HPI - Endocrine Endocrine: Reports fatigue - Hematologic/Lymphatic Comment: taking eliquis - Allergic/Immunologic Allergic/Immunologic: Reports as per HPI Past Medical History Past Medical History: Atrial Fibrillation, Cancer, GERD/Reflux, Hyperlipidemia, Hypertension Additional Past Medical History / Comment(s): anemia,sepsis admitted to [facility] 2017,Hx Breast Cancer 09/22, 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 History of Any Multi-Drug Resistant Organisms: Other MDRO Past Surgical History: Bowel Resection, Breast Surgery, Heart Catheterization, Orthopedic Surgery, Tubal Ligation Additional Past Surgical History / Comment(s): LEFT rotator cuff repair,. Bilateral mastectomy 09/22, had reconstruction sx w/tissue expanders. may 2018 had excision rt and lt reconstructred breast/chest wall deformities. bowel resection 10/2016, heart cath 12/13/17, tiff cataracts,lower dental implants. Past Anesthesia/Blood Transfusion Reactions: Previous Problems w/ Anesthesia, Postoperative Nausea & Vomiting (PONV) Additional Past Anesthesia/Blood Transfusion Reaction / Comment(s): PATIENT STATES HER TEETH IMPLANTS WERE DISLODGED DURING INTUBATION AND SHE SWALLOWED A TOOTH 2015. pt stated she has recieved blood transfusion in past. no reaction to it. Smoking Status: Former smoker - Past Family History Mother Family Medical History: Myocardial Infarction ([place]) Additional Family Medical History / Comment(s): in her 80's Father Family Medical History: Myocardial Infarction ([place]) Additional Family Medical History / Comment(s): age 56 from [place] Brother(s) Family Medical History: Cancer Medications and Allergies Home Medications Medication Instructions Recorded Confirmed Type Apixaban [Eliquis] 5 mg PO BID 11/24/16 06/20/18 History Escitalopram [Lexapro] 10 mg PO QAM 01/12/17 06/20/18 History Ferrous Sulfate [Iron (65 MG 325 mg PO DAILY 12/14/17 06/20/18 History Elemental)] Metoprolol Succinate (ER) [Toprol 100 mg PO QAM 12/14/17 06/20/18 History XL] Atorvastatin Calcium [Lipitor] 10 mg PO HS 03/19/18 06/20/18 History Fluticasone Nasal [place] [Flonase 1 spray EA NOSTRIL DAILY PRN 03/19/18 06/20/18 History Nasal [place]] Furosemide [Lasix] 20 mg PO DAILY 03/19/18 06/20/18 History Melatonin 10 mg PO HS tablet 03/25/18 06/20/18 Rx NIFEdipine [Procardia] 10 mg PO TID #60 cap 03/25/18 06/20/18 Rx Losartan [Cozaar] 100 mg PO QAM 05/20/18 06/20/18 History Fluconazole [Diflucan] 100 mg PO DAILY 05/24/18 06/20/18 History Nystatin [Nystop] 1 applic TOPICAL TID 05/24/18 06/20/18 History HYDROcodone/APAP 7.5-325MG [[place] 2 tab PO Q4H PRN 3 Days #30 tab 05/29/1806/20 Rx 7.5-325] Allergies Allergy/AdvReac Type Severity Reaction Status Date / Time No Known Allergies Allergy Verified 06/20/18 18:36 Surgical - Exam Vital Signs Temp Pulse Resp BP Pulse Ox 98.3 F 70 18 139/69 96 06/20/18 17:42 06/20/18 17:42 06/20/18 17:42 06/20/18 17:42 06/20/18 17:42 - General obese - Eyes normal ocular movement - ENT no hearing loss, no congestion - Neck no masses, trachea midline - Respiratory Decreased breath sounds at the bases normal respiratory effort, clear to auscultation - Cardiovascular Heart Sounds: normal: S1, S2 - Abdomen Well-healed scar from prior surgery Soft no guarding or rebound Abdomen: soft, non tender, no guarding, no rigid, no rebound - Integumentary Examination of the chest wall reveals incision on the right with cindy intact approximately 46 cm in length the midportion of the incision has some seropurulent drainage with opening of the skin at the site of the cindy and some erythema Left chest wall incision approximately 46 cm in length in the midportion the cindy are pulling apart from the skin with some increased erythema - Musculoskeletal Patient in bed - Psychiatric oriented to time, oriented to person, oriented to place, speech is normal, memory intact [place] [id number], blood cultures [id number] Strep Agalactiae Left chest wall site gram-negative anaerobes, Urine culture: E. coli, Klebsiella pneumonia - Labs 06/20/18 18:49 06/21/18 11:37 Abnormal Lab Results - Last 24 Hours (Table) 06/20/18 06/20/1818 Range/Units 18:49 18:49 18:49 RBC 3.25 L (3.80-5.40) m/uL Hgb 9.7 L (11.4-16.0) gm/dL Hct 30.5 L (34.0-46.0) % Lymphocytes # 0.8 L (1.0-4.8) k/uL APTT 31.3 H (22.0-30.0) sec Sodium 136 L (137-145) mmol/L Chloride (98-107) mmol/L Carbon Dioxide 19 L (22-30) mmol/L BUN 31 H (7-17) mg/dL Creatinine 1.32 H (0.52-1.04) mg/dL Glucose (74-99) mg/dL Calcium (8.4-10.2) mg/dL Alkaline Phosphatase 150 H (38-126) U/L Urine Protein (Negative) Urine Blood (Negative) Ur Leukocyte Esterase (Negative) Urine WBC (0-5) /hpf Hyaline Casts (0-2) /lpf 06/20/18 06/21/18 Range/Units 19:37 11:37 RBC (3.80-5.40) m/uL Hgb (11.4-16.0) gm/dL Hct (34.0-46.0) % Lymphocytes # (1.0-4.8) k/uL APTT (22.0-30.0) sec Sodium (137-145) mmol/L Chloride 108 H (98-107) mmol/L Carbon Dioxide 18 L (22-30) mmol/L BUN 32 H (7-17) mg/dL Creatinine 1.57 H (0.52-1.04) mg/dL Glucose 109 H (74-99) mg/dL Calcium 8.2 L (8.4-10.2) mg/dL Alkaline Phosphatase (38-126) U/L Urine Protein 1+ H (Negative) Urine Blood Trace H (Negative) Ur Leukocyte Esterase Moderate H (Negative) Urine WBC 8 H (0-5) /hpf Hyaline Casts 7 H (0-2) /lpf Microbiology - Last 24 Hours (Table) 06/20/18 19:37 Urine Culture - Preliminary Urine,Voided 06/20/18 19:00 Gram Stain - Preliminary Breast - Right Wound Culture - Preliminary Diabetes panel 06/20/18 06/21/18 Range/Units 18:49 11:37 Sodium 136 L 138 (137-145) mmol/L Potassium 4.3 4.2 (3.5-5.1) mmol/L Chloride 103 108 H (98-107) mmol/L Carbon Dioxide 19 L 18 L (22-30) mmol/L BUN 31 H 32 H (7-17) mg/dL Creatinine 1.32 H 1.57 H (0.52-1.04) mg/dL Glucose 93 109 H (74-99) mg/dL Calcium 9.0 8.2 L (8.4-10.2) mg/dL AST 33 (14-36) U/L ALT 46 (9-52) U/L Alkaline Phosphatase 150 H (38-126) U/L Total Protein 7.1 (6.3-8.2) g/dL Albumin 3.6 (3.5-5.0) g/dL Calcium panel 06/20/18 06/21/18 Range/Units 18:49 11:37 Calcium 9.0 8.2 L (8.4-10.2) mg/dL Albumin 3.6 (3.5-5.0) g/dL Pituitary panel 06/20/18 06/21/18 Range/Units 18:49 11:37 Sodium 136 L 138 (137-145) mmol/L Potassium 4.3 4.2 (3.5-5.1) mmol/L Chloride 103 108 H (98-107) mmol/L Carbon Dioxide 19 L 18 L (22-30) mmol/L BUN 31 H 32 H (7-17) mg/dL Creatinine 1.32 H 1.57 H (0.52-1.04) mg/dL Glucose 93 109 H (74-99) mg/dL Calcium 9.0 8.2 L (8.4-10.2) mg/dL Adrenal panel 06/20/18 06/21/18 Range/Units 18:49 11:37 Sodium 136 L 138 (137-145) mmol/L Potassium 4.3 4.2 (3.5-5.1) mmol/L Chloride 103 108 H (98-107) mmol/L Carbon Dioxide 19 L 18 L (22-30) mmol/L BUN 31 H 32 H (7-17) mg/dL Creatinine 1.32 H 1.57 H (0.52-1.04) mg/dL Glucose 93 109 H (74-99) mg/dL Calcium 9.0 8.2 L (8.4-10.2) mg/dL Total Bilirubin 0.6 (0.2-1.3) mg/dL AST 33 (14-36) U/L ALT 46 (9-52) U/L Alkaline Phosphatase 150 H (38-126) U/L Total Protein 7.1 (6.3-8.2) g/dL Albumin 3.6 (3.5-5.0) g/dL Assessment and Plan Assessment: Impression/plan: 1. Sepsis secondary to left chest wall cellulitis patient on IV antibiotics in the form of daptomycin and Zosyn 2. Hypertension 3. Hyperlipidemia 4. Atrial fibrillation 5. History of ischemic bowel 6. History of atrial septal defect with closure in 2005 at [facility] Plan: 1. The patient at this time does not require any surgical intervention 2. Consultation with Dr. Lazaro/plastci surgery 3. Would consider removing cindy in the midportion of the incisions 4. Await Dr. Martinez consult
--- NOTE | 2018-06-21 13:48 | P.HPIM ---
History of Present Illness H&P Date: 06/21/18 Chief Complaint: Bacteremia This is a 77-year-old female patient of Dr. 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 Patient states she had breast surgery done by Dr. Christianson at [facility]. (She does not know surgeon's full name). She states one deck engine operator did not work and both expanders have been removed. She states that it all started after she had a fall in her laundry room at home and the drain came out on the left breast and had ongoing nonhealing wound on the left side. She was hospitalized March 19 through March 25 and was discharged on Invanz for 14 days as recommended by Dr. Martinez. On May 29, patient underwent excision of right and left reconstructed breast and chest wall deformities with closure via local advancement flap with Dr. Christianson at [facility]. She states the cindy are still in from that procedure. She saw Dr. Christianson on Sunday and was told everything was okay and 2 drains were removed. She states she wasn't feeling well at home and her home care nurse decided to draw some blood including blood cultures which were processed at [facility]. She was then called that her blood culture was positive and she needed to come in the hospital for evaluation. Patient states that she just has not been feeling well for some time but no documented fever or chills. She feels weak, generalized malaise and lightheaded. She has had ongoing drainage from her breast wounds that has saturated through the dressing into her gown. Patient presented with a white count of 8.1, temperature max 100.2, creatinine 1.32 and baseline is 0.8. Alkaline phosphatase 150. Urinalysis was clear with leukoesterase moderate, WBCs 8 in hyaline casts 7. Patient denies urinary symptoms. She was recently placed on Diflucan by Dr. Quintanilla the patient does not know why. She has been started on Rocephin and vancomycin and admitted to the [facility] floor and consults requested with Dr. Martinez and Dr. Steve Moura as well. Wound culture is in progress and blood culture is status received. We will attempt to contact Dr. Christianson and add a consult for him. Antibiotics changed to Zosyn and vancomycin. CT of the chest will be ordered with contrast and patient will receive 500 mL fluid bolus prior to study. Review of Systems All systems: negative Constitutional: Reports fatigue, Reports lethargy, Reports malaise, Reports poor appetite, Reports weakness, Denies chills, Denies fever, Denies sweats Eyes: denies blurred vision, denies pain Ears, nose, mouth and throat: Denies dental pain, Denies dysphagia, Denies headache, Denies mouth pain, Denies sore throat Breasts: Reports as per HPI Cardiovascular: Denies chest pain, Denies shortness of breath Respiratory: Denies cough, Denies cough with sputum, Denies dyspnea, Denies excessive sputum, Denies hemoptysis, Denies home oxygen Gastrointestinal: Reports loss of appetite, Denies abdominal pain, Denies diarrhea, Denies nausea, Denies vomiting Genitourinary: Denies dysuria, Denies hematuria Musculoskeletal: Reports muscle weakness, Denies frequent falls, Denies myalgias Integumentary: Reports wounds, Denies pruritus, Denies rash Neurological: Denies numbness, Denies weakness Psychiatric: Denies anxiety, Denies depression Endocrine: Denies fatigue, Denies weight change Past Medical History Past Medical History: Atrial Fibrillation, Cancer, GERD/Reflux, Hyperlipidemia, Hypertension Additional Past Medical History / Comment(s): anemia,sepsis admitted to [facility] 2017,Hx Breast Cancer 09/22, 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 History of Any Multi-Drug Resistant Organisms: Other MDRO Past Surgical History: Bowel Resection, Breast Surgery, Heart Catheterization, Orthopedic Surgery, Tubal Ligation Additional Past Surgical History / Comment(s): LEFT rotator cuff repair,. Bilateral mastectomy 09/22, had reconstruction sx w/tissue expanders. may 2018 had excision rt and lt reconstructred breast/chest wall deformities. bowel resection 10/2016, heart cath 12/13/17, tiff cataracts,lower dental implants. Past Anesthesia/Blood Transfusion Reactions: Previous Problems w/ Anesthesia, Postoperative Nausea & Vomiting (PONV) Additional Past Anesthesia/Blood Transfusion Reaction / Comment(s): PATIENT STATES HER TEETH IMPLANTS WERE DISLODGED DURING INTUBATION AND SHE SWALLOWED A TOOTH 2016. pt stated she has recieved blood transfusion in past. no reaction to it. Smoking Status: Former smoker - Past Family History Mother Family Medical History: Myocardial Infarction (VT) Additional Family Medical History / Comment(s): in her 80's Father Family Medical History: Myocardial Infarction (VT) Additional Family Medical History / Comment(s): age 56 from [place] Brother(s) Family Medical History: Cancer Medications and Allergies Home Medications Medication Instructions Recorded Confirmed Type Apixaban [Eliquis] 5 mg PO BID 11/24/16 06/20/18 History Escitalopram [Lexapro] 10 mg PO QAM 01/12/17 06/20/18 History Ferrous Sulfate [Iron (65 MG 325 mg PO DAILY 12/14/17 06/20/18 History Elemental)] Metoprolol Succinate (ER) [Toprol 100 mg PO QAM 12/14/17 06/20/18 History XL] Atorvastatin Calcium [Lipitor] 10 mg PO HS 03/19/18 06/20/18 History Fluticasone Nasal [place] [Flonase 1 spray EA NOSTRIL DAILY PRN 03/19/18 06/20/18 History Nasal [place]] Furosemide [Lasix] 20 mg PO DAILY 03/19/18 06/20/18 History Melatonin 10 mg PO HS tablet 03/25/18 06/20/18 Rx NIFEdipine [Procardia] 10 mg PO TID #60 cap 03/25/18 06/20/18 Rx Losartan [Cozaar] 100 mg PO QAM 05/20/18 06/20/18 History Fluconazole [Diflucan] 100 mg PO DAILY 05/24/18 06/20/18 History Nystatin [Nystop] 1 applic TOPICAL TID 05/24/18 06/20/18 History HYDROcodone/APAP 7.5-325MG [[place] 2 tab PO Q4H PRN 3 Days #30 tab 05/29/1806/20 Rx 7.5-325] Allergies Allergy/AdvReac Type Severity Reaction Status Date / Time No Known Allergies Allergy Verified 06/20/18 18:36 Physical Exam Vitals: Vital Signs Temp Pulse Pulse Resp BP BP Pulse Ox 06/21/18 05:58 100.2 F H 84 16 109/61 93 L 06/20/18 23:15 98.8 F 79 16 132/74 95 06/20/18 20:53 99.6 F 77 18 156/70 97 06/20/18 19:01 74 16 151/68 06/20/18 17:42 98.3 F 70 18 139/69 96 Intake and Output 06/20/18 06/21/18 06/21/18 22:59 06:59 14:59 Intake Total 240 Balance 240 Intake: Oral 240 Other: Voiding Method Toilet # Voids 1 # Bowel Movements 0 Weight 90.718 kg 94 kg Gen: This is a 77-year-old female. She is in bed and appears to be comfortable and in no acute distress. HEENT: Head is atraumatic, normocephalic. Pupils equal, round. Sclerae is anicteric. Conjunctiva pink. Mucous members of the mouth are moist. NECK: Supple. No JVD. No lymphadenopathy. No thyromegaly. LUNGS: Clear to auscultation. No wheezes or rhonchi. No intercostal retractions. HEART: Regular rate and rhythm. No murmur. BREAST: Dressings in place on the bilateral breasts. There is serous drainage bilaterally, extensive cindy under breast. Follow odor. There is edema and slight redness. 2 puncture sites from previous drains in the sternal area. ABDOMEN: Soft. Bowel sounds are present. No masses. No tenderness. EXTREMITIES: No pedal edema. No calf tenderness. NEUROLOGICAL: Patient is awake, alert and oriented x3. Cranial nerves 2 through 12 are grossly intact. Results CBC & Chem 7: 06/20/18 18:49 06/21/18 11:37 Labs: Abnormal Lab Results - Last 24 Hours (Table) 06/20/18 06/20/18 06/20/18 Range/Units 18:49 18:49 18:49 RBC 3.25 L (3.80-5.40) m/uL Hgb 9.7 L (11.4-16.0) gm/dL Hct 30.5 L (34.0-46.0) % Lymphocytes # 0.8 L (1.0-4.8) k/uL APTT 31.3 H (22.0-30.0) sec Sodium 136 L (137-145) mmol/L Carbon Dioxide 19 L (22-30) mmol/L BUN 31 H (7-17) mg/dL Creatinine 1.32 H (0.52-1.04) mg/dL Alkaline Phosphatase 150 H (38-126) U/L Urine Protein (Negative) Urine Blood (Negative) Ur Leukocyte Esterase (Negative) Urine WBC (0-5) /hpf Hyaline Casts (0-2) /lpf 06/20/18 Range/Units 19:37 RBC (3.80-5.40) m/uL Hgb (11.4-16.0) gm/dL Hct (34.0-46.0) % Lymphocytes # (1.0-4.8) k/uL APTT (22.0-30.0) sec Sodium (137-145) mmol/L Carbon Dioxide (22-30) mmol/L BUN (7-17) mg/dL Creatinine (0.52-1.04) mg/dL Alkaline Phosphatase (38-126) U/L Urine Protein 1+ H (Negative) Urine Blood Trace H (Negative) Ur Leukocyte Esterase Moderate H (Negative) Urine WBC 8 H (0-5) /hpf Hyaline Casts 7 H (0-2) /lpf Microbiology - Last 24 Hours (Table) 06/20/18 19:00 Gram Stain - Preliminary Breast - Right Wound Culture - Preliminary Thrombosis Risk Factor Assmnt - DVT/VTE Prophylaxis DVT/VTE Prophylaxis: Pharmacologic Prophylaxis ordered - Choose All That Apply Any of the Below Risk Factors Present?: Yes Each Factor Represents 1 point: Obesity (BMI >25) Other Risk Factors: Yes Each Risk Factor Represents 3 Points: Age 75 years or older Other congenital or acquired thrombophilia - If yes, enter type in comment: No Thrombosis Risk Factor Assessment Total Risk Factor Score: 4 Thrombosis Risk Factor Assessment Level: Moderate Risk Assessment and Plan Plan: 1. Bacteremia with bilateral breast cellulitis and wound infection status post recent excision of right and left reconstructed breast and chest wall deformities with closure with Dr. Christianson on May 29. Patient is currently on IV antibiotics the form of daptomycin and Zosyn. Consult with Dr. Martinez and Dr. Steve Moura. Dr. Christianson consult it as well. CAT scan of the chest with contrast ordered. 2. Acute kidney injury with chronic kidney disease stage III. Baseline creatinine 0.8. Patient will be given IV fluid bolus of 500 mL. Continue IV fluids at 75 mL per hour. 3. Hypertension. Continue losartan 50 mg daily and Toprol-XL 100 mg daily. 4. Hyperlipidemia. Continue atorvastatin 10 mg daily at bedtime. 5. Paroxysmal atrial fibrillation. Continue eliquis 5 mg twice daily, aspirin 81 mg daily, Toprol-XL 100 mg daily. 6. History of ischemic bowel status post exploratory laparotomy and hemicolectomy at [facility], [facility]. 7. History of atrial septal defect with closure in 2005 at [facility]. 8. DVT prophylaxis. Patient is on eliquis. 9. Gastrointestinal prophylaxis. Pepcid. 10. Pulmonary prophylaxis. Incentive spirometry. Patient will be admitted to the hospital for a minimum of 3 night stay. Discharge plan: To be determined. We will add in PT and OT evaluations. Patient has been at [facility] in the past. Impression and plan of care have been directed as dictated by the signing physician. Mayi Lindsay nurse practitioner acting as scribe for signing physician.
[2018-06-21] MEDS: SODIUM CHLORIDE 0.9% 1,000 ML IV SCH (13:57)
--- NOTE | 2018-06-21 14:59 | CT ---
EXAMINATION TYPE: CT chest wo con DATE OF EXAM: 06/21/2018 COMPARISON: Chest CT March 19, 2018 HISTORY: Post op breast surgery. CT DLP: 611 mGycm. Automated Exposure Control for Dose Reduction was Utilized. TECHNIQUE: CT scan of the thorax is performed without IV contrast. FINDINGS: LUNGS: Mild linear scarring anteriorly right upper lobe is redemonstrated axial image 19. There is l inear scarring and/or atelectasis posteriorly in both lower lobes most prominent near diaphragms. The re is no new suspicious nodule or mass identified. No new suspicious consolidation is seen. There is no pleural effusion or pneumothorax seen bilaterally. The tracheobronchial tree is patent. MEDIASTINUM: Lack of IV contrast is noted to limit evaluation for mediastinal and especially hilar ad enopathy. There are no definitive greater than 1 cm hilar or mediastinal lymph nodes. No or signifi cant pericardial effusion is seen. Stable mild cardiomegaly is present. Suspect septal closure device at ASD. Moderate to severe 3 vessel coronary artery calcification is redemonstrated which is noted m alexandra for coronary artery disease. OTHER: There are new horizontal skin cindy overlying both breasts with moderate ill-defined fluid s een bilaterally.. There are thin-walled bilateral fluid collections containing foci of air noted bila terally above the pectoralis muscles. There is a larger thin-walled fluid collection deep to right pe ctoralis muscle axial image 27 also nonspecific measuring 6.0 x 2.0 cm axial image 26 x 8 cm cranioca udal dimension coronal image 26. There is moderate calcified plaque of the descending aorta. IMPRESSION: Interval bilateral breast surgery with moderate ill-defined fluid and nonspecific thin-wa lled fluid collections seen bilaterally including a deeper thin-walled fluid collection in the right breast. Cannot exclude infectious process in appropriate clinical setting. No new suspicious acute pu lmonary process or infiltrate identified.
--- NOTE | 2018-06-21 17:07 | P.CON ---
Consult Note - . Consult date: 06/21/18 Assessment/Plan:: This is a 77-year-old female patient known to ID service as she was seen in March of this year with past medical history significant for breast cancer status post bilateral mastectomy and placement of expanders subsequently removed. Patient states she had breast surgery done by Dr. Christianson at [facility]. She states one die sizer did not work and both expanders have been subsequently removed. She states that it all started after she had a fall in her laundry room at home and the drain came out on the left breast and it has been packed ever since. She has had ongoing wound on the left side. She was hospitalized March 19 through March 25 and was discharged on Invanz for 14 days done at [facility]. On May 29, patient underwent excision of right and left reconstructed breast and chest wall deformities with closure via local advancement flap with Dr. Christianson at [facility]. She states the cindy are still in. She saw Dr. Christianson on Sunday and was told everything was okay and 2 drains were removed. She states she wasn't feeling well at home and her home care nurse decided to draw some blood and including blood cultures which were processed at [facility]. She was then called that her blood culture was positive and she needed to come in the hospital for evaluation. Patient states that she just has not been feeling well for some time but now documented fever or chills. She feels weak generalized malaise and lightheaded. She has had ongoing drainage from her breast wounds that his saturated through the dressing into her gown. Patient presented with a white count of 8.1, temperature max 100.2, creatinine 1.32 and baseline is 0.8. Alkaline phosphatase 150. Urinalysis was clear with leukoesterase moderate, WBCs 8 in [place] casts 7. Patient denies urinary symptoms. She was recently placed on Diflucan by Dr. Quintanilla the patient does not know why. She has been started on Rocephin and vancomycin and admitted to the Medr floor and has consult in place with Dr. Steve Moura as well. Wound culture is in progress and blood culture is status received. Please see the consult note is dictated by nurse practitioner Mrs. Mayi Alcocer. With the patient's history and some acute renal failure antibiotic therapy at this time will be with Zosyn and daptomycin any culture results. Approximately 120s cindy are removed and a large surgical line. There is some drainage was sent to the laboratory for culture. Blood cultures are also in process. The patient might require outpatient antibiotic therapy. His intravenous was determined once cultures are available. Hopefully can be seen by her plastic surgeon next week. The local breast surgeon did evaluate and requested the staple removal. I reviewed evaluation, assessment and plan as dictated by nurse practitioner Mrs. Mayi Alcocer.
[2018-06-21] MEDS: ATORVASTATIN 10 MG TAB PO SCH (20:00)
[2018-06-21] MEDS: MELATONIN 5 MG TABLET PO SCH (20:00)
[2018-06-21] MEDS ORDERED: VANCOMYCIN 1,500 MG in SODIUM CHLORIDE 0.9% 250 ML IVPB SCH (21:00)
[2018-06-22] MEDS: PIPERACILLIN-TAZOBACTAM 3.375 GM in DEXTROSE/WATER 1 50ML.BAG IVPB SCH ×3 (03:23→21:22)
[2018-06-22] MEDS: SODIUM CHLORIDE 0.9% 1,000 ML IV SCH ×2 (03:23→16:43)
[2018-06-22] MEDS: ESCITALOPRAM 10 MG TAB PO SCH (08:51)
[2018-06-22] MEDS: APIXABAN 5 MG TAB PO SCH ×2 (08:51→21:22)
[2018-06-22] MEDS: FAMOTIDINE 20 MG TAB PO SCH (08:51)
[2018-06-22] MEDS: NIFEdipine 10 MG CAP PO SCH ×3 (08:52→21:22)
[2018-06-22] MEDS: FUROSEMIDE 20 MG TAB PO SCH (08:52)
[2018-06-22] MEDS: LOSARTAN 50 MG TAB PO SCH (08:52)
[2018-06-22] MEDS: METOPROLOL SUCCINATE (ER) 100 MG TAB.ER.24H PO SCH (08:52)
[2018-06-22 09:27] LABS: Calcium 8.3 mg/dL (8.4-10.2); Hypochromasia Moderate; MCH 29.5 pg (25.0-35.0); MCHC 31.7 g/dL (31.0-37.0); MCV 93.2 fL (80.0-100.0); Mean Platelet Volume 7.2; Platelet Count 278 k/uL (150-450); Potassium 3.9 mmol/L (3.5-5.1); RBC 2.58 m/uL (3.80-5.40); RDW 14.7 % (11.5-15.5); WBC 6.8 k/uL (3.8-10.6)
[2018-06-22 09:33] LABS: HGB 7.6 gm/dL (11.4-16.0)
[2018-06-22] MEDS: HYDROcodone/APAP 7.5-325MG 1 EACH TAB PO PRN (12:28)
--- NOTE | 2018-06-22 13:47 | P.PN ---
Subjective Progress Note Date: 06/22/18 This is a 77-year-old female patient of Dr. 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 Patient states she had breast surgery done by Dr. Christianson at [facility]. (She does not know surgeon's full name). She states one organizational development consultant did not work and both expanders have been removed. She states that it all started after she had a fall in her laundry room at home and the drain came out on the left breast and had ongoing nonhealing wound on the left side. She was hospitalized March 19 through March 25 and was discharged on Invanz for 14 days as recommended by Dr. Martinez. On May 29, patient underwent excision of right and left reconstructed breast and chest wall deformities with closure via local advancement flap with Dr. Christianson at [facility]. She states the cindy are still in from that procedure. She saw Dr. Christianson on Sunday and was told everything was okay and 2 drains were removed. She states she wasn't feeling well at home and her home care nurse decided to draw some blood including blood cultures which were processed at [facility]. She was then called that her blood culture was positive and she needed to come in the hospital for evaluation. Patient states that she just has not been feeling well for some time but no documented fever or chills. She feels weak, generalized malaise and lightheaded. She has had ongoing drainage from her breast wounds that has saturated through the dressing into her gown. Patient presented with a white count of 8.1, temperature max 100.2, creatinine 1.32 and baseline is 0.8. Alkaline phosphatase 150. Urinalysis was clear with leukoesterase moderate, WBCs 8 in hyaline casts 7. Patient denies urinary symptoms. She was recently placed on Diflucan by Dr. Quintanilla the patient does not know why. She has been started on Rocephin and vancomycin and admitted to the Med floor and consults requested with Dr. Martinez and Dr. Steve Moura as well. Wound culture is in progress and blood culture is status received. We will attempt to contact Dr. Christianson and add a consult for him. Antibiotics changed to Zosyn and vancomycin. CT of the chest will be ordered with contrast and patient will receive 500 mL fluid bolus prior to study. 06/22: Patient is feeling better today she denies any fever or chills, she has been seen by infectious disease, she was started on IV antibiotic in the form of Cubicin and Zosyn, she has no complaints today. Objective - Vital Signs Vital signs: Vital Signs Temp 99.5 F 06/21/18 23:00 Pulse 79 06/21/18 23:00 Resp 18 06/21/18 23:00 BP 106/48 06/21/18 23:00 Pulse Ox 93 L 06/21/18 23:00 Intake & Output 06/21/18 06/22/18 06/22/18 18:59 06:59 18:59 Intake Total 480 Balance 480 Weight 94 kg Intake: Oral 480 Other: Voiding Method Toilet Toilet # Voids 1 2 # Bowel Movements 0 - Exam Gen: This is a 77-year-old female. She is in bed and appears to be comfortable and in no acute distress. HEENT: Head is atraumatic, normocephalic. Pupils equal, round. Sclerae is anicteric. Conjunctiva pink. Mucous members of the mouth are moist. NECK: Supple. No JVD. No lymphadenopathy. No thyromegaly. LUNGS: Clear to auscultation. No wheezes or rhonchi. No intercostal retractions. HEART: Regular rate and rhythm. No murmur. BREAST: Dressings in place on the bilateral breasts. There is serous drainage bilaterally, extensive cindy under breast. Follow odor. There is edema and slight redness. 2 puncture sites from previous drains in the sternal area. ABDOMEN: Soft. Bowel sounds are present. No masses. No tenderness. EXTREMITIES: No pedal edema. No calf tenderness. NEUROLOGICAL: Patient is awake, alert and oriented x3. Cranial nerves 2 through 12 are grossly intact. - Labs CBC & Chem 7: 06/22/18 08:37 06/22/18 08:37 Labs: Abnormal Lab Results - Last 24 Hours (Table) 06/21/18 Range/Units 11:37 Chloride 108 H (98-107) mmol/L Carbon Dioxide 18 L (22-30) mmol/L BUN 32 H (7-17) mg/dL Creatinine 1.57 H (0.52-1.04) mg/dL Glucose 109 H (74-99) mg/dL Calcium 8.2 L (8.4-10.2) mg/dL Microbiology - Last 24 Hours (Table) 06/21/18 16:19 Anaerobic Culture - Preliminary Chest 06/21/18 16:19 Wound Culture - Preliminary Chest 06/20/18 18:49 Blood Culture - Preliminary Blood No Growth after 24 hours 06/20/18 19:00 Gram Stain - Preliminary Breast - Right Wound Culture - Preliminary Presumptive Staph aureus 06/20/18 19:37 Urine Culture - Preliminary Urine,Voided Assessment and Plan Assessment: Assessment and Plan Plan: 1. Bacteremia with bilateral breast cellulitis and wound infection status post recent excision of right and left reconstructed breast and chest wall deformities with closure with Dr. Christianson on May 29. Patient is currently on IV antibiotics the form of daptomycin and Zosyn. Consult with Dr. Martinez and Dr. Steve Moura. Dr. Christianson consult it as well. CAT scan of the chest with contrast ordered. 2. Acute kidney injury with chronic kidney disease stage III. Baseline creatinine 0.8. Patient will be given IV fluid bolus of 500 mL. Continue IV fluids at 75 mL per hour. 3. Hypertension. Continue losartan 50 mg daily and Toprol-XL 100 mg daily. 4. Hyperlipidemia. Continue atorvastatin 10 mg daily at bedtime. 5. Paroxysmal atrial fibrillation. Continue eliquis 5 mg twice daily, aspirin 81 mg daily, Toprol-XL 100 mg daily. 6. History of ischemic bowel status post exploratory laparotomy and hemicolectomy at [facility], [facility]. 7. History of atrial septal defect with closure in 2005 at [facility]. 8. DVT prophylaxis. Patient is on eliquis. 9. Gastrointestinal prophylaxis. Pepcid. 10. Pulmonary prophylaxis. Incentive spirometry. 11. We will follow the patient very closely.
[2018-06-22] MEDS: DAPTOmycin 500 MG in SODIUM CHLORIDE 0.9% 50 ML IVPB SCH (15:09)
[2018-06-22] MEDS: ATORVASTATIN 10 MG TAB PO SCH (21:22)
[2018-06-22] MEDS: MELATONIN 5 MG TABLET PO SCH (21:22)
[2018-06-23] MEDS ORDERED: QUEtiapine 25 MG TAB PO STA ×2 (04:01→14:23)
[2018-06-23] MEDS: PIPERACILLIN-TAZOBACTAM 3.375 GM in DEXTROSE/WATER 1 50ML.BAG IVPB SCH ×3 (04:15→20:16)
[2018-06-23] MEDS: SODIUM CHLORIDE 0.9% 1,000 ML IV SCH ×2 (04:36→20:17)
[2018-06-23] MEDS: ESCITALOPRAM 10 MG TAB PO SCH (07:29)
[2018-06-23] MEDS: FAMOTIDINE 20 MG TAB PO SCH (07:29)
[2018-06-23] MEDS: LOSARTAN 50 MG TAB PO SCH (07:29)
[2018-06-23] MEDS: METOPROLOL SUCCINATE (ER) 100 MG TAB.ER.24H PO SCH (07:29)
[2018-06-23] MEDS: FUROSEMIDE 20 MG TAB PO SCH (07:30)
[2018-06-23] MEDS: NIFEdipine 10 MG CAP PO SCH ×3 (07:30→20:17)
[2018-06-23] MEDS: APIXABAN 5 MG TAB PO SCH ×2 (07:30→20:17)
[2018-06-23 08:42] LABS: Basophils % (A) 1 %; Eosinophils # (A) 0.4 k/uL (0-0.7); Eosinophils % (A) 5 %; HCT 26.6 % (34.0-46.0); HGB 8.4 gm/dL (11.4-16.0); Hypochromasia Slight; Lymphocytes % (A) 13 %; MCH 28.9 pg (25.0-35.0); MCHC 31.5 g/dL (31.0-37.0); MCV 91.7 fL (80.0-100.0); Mean Platelet Volume 6.7; Monocytes # (A) 0.5 k/uL (0-1.0); Monocytes % (A) 7 %; Neutrophils # (A) 5.7 k/uL (1.3-7.7); Neutrophils % (A) 73 %; Platelet Count 346 k/uL (150-450); RDW 14.5 % (11.5-15.5); WBC 7.8 k/uL (3.8-10.6)
[2018-06-23 08:56] LABS: Calcium 8.7 mg/dL (8.4-10.2); Potassium 3.9 mmol/L (3.5-5.1); Total Bilirubin 0.5 mg/dL (0.2-1.3); Total Protein 6.3 g/dL (6.3-8.2)
--- NOTE | 2018-06-23 09:50 | P.PN ---
Subjective Progress Note Date: 06/23/18 This is a 77-year-old female patient of Dr. 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 Patient states she had breast surgery done by Dr. Christianson at [facility]. (She does not know surgeon's full name). She states one chief steward/stewardess did not work and both expanders have been removed. She states that it all started after she had a fall in her laundry room at home and the drain came out on the left breast and had ongoing nonhealing wound on the left side. She was hospitalized March 19 through March 25 and was discharged on Invanz for 14 days as recommended by Dr. Martinez. On May 29, patient underwent excision of right and left reconstructed breast and chest wall deformities with closure via local advancement flap with Dr. Christianson at [facility]. She states the cindy are still in from that procedure. She saw Dr. Christianson on Sunday and was told everything was okay and 2 drains were removed. She states she wasn't feeling well at home and her home care nurse decided to draw some blood including blood cultures which were processed at [facility]. She was then called that her blood culture was positive and she needed to come in the hospital for evaluation. Patient states that she just has not been feeling well for some time but no documented fever or chills. She feels weak, generalized malaise and lightheaded. She has had ongoing drainage from her breast wounds that has saturated through the dressing into her gown. Patient presented with a white count of 8.1, temperature max 100.2, creatinine 1.32 and baseline is 0.8. Alkaline phosphatase 150. Urinalysis was clear with leukoesterase moderate, WBCs 8 in hyaline casts 7. Patient denies urinary symptoms. She was recently placed on Diflucan by Dr. Quintanilla the patient does not know why. She has been started on Rocephin and vancomycin and admitted to the Med floor and consults requested with Dr. Martinez and Dr. Steve Moura as well. Wound culture is in progress and blood culture is status received. We will attempt to contact Dr. Christianson and add a consult for him. Antibiotics changed to Zosyn and vancomycin. CT of the chest will be ordered with contrast and patient will receive 500 mL fluid bolus prior to study. 06/22: Patient is feeling better today she denies any fever or chills, she has been seen by infectious disease, she was started on IV antibiotic in the form of Cubicin and Zosyn, she has no complaints today. 06/23: Patient became confused and delirious yesterday she was quite agitated wanted to leave the hospital, patient was seen and evaluated today by myself she continues to be somewhat confused however she is more alert she is awake alert and oriented 2 she remembered that she saw me yesterday she knows the date she knows the name of the president, patient does have episode of confusion with she is in the hospital however this encephalopathy would be evaluated further we will send the patient for computed tomography scan of the brain to rule out any acute abnormalities, we will obtain neurology consultation. Objective - Vital Signs Vital signs: Vital Signs Temp 98.5 F 06/23/18 07:00 Pulse 87 06/23/18 07:00 Resp 18 06/23/18 07:00 BP 124/58 06/23/18 07:00 Pulse Ox 96 06/23/18 07:00 Intake & Output 06/22/18 06/23/18 06/23/18 18:59 06:59 18:59 Intake Total 1200 250 Balance 1200 250 Intake: Oral 1200 250 Other: Voiding Method Toilet # Voids 1 1 - Exam Gen: This is a 77-year-old female. She is in bed and appears to be comfortable and in no acute distress. HEENT: Head is atraumatic, normocephalic. Pupils equal, round. Sclerae is anicteric. Conjunctiva pink. Mucous members of the mouth are moist. NECK: Supple. No JVD. No lymphadenopathy. No thyromegaly. LUNGS: Clear to auscultation. No wheezes or rhonchi. No intercostal retractions. HEART: Regular rate and rhythm. No murmur. BREAST: Dressings in place on the bilateral breasts. There is serous drainage bilaterally, extensive cindy under breast. Follow odor. There is edema and slight redness. 2 puncture sites from previous drains in the sternal area. ABDOMEN: Soft. Bowel sounds are present. No masses. No tenderness. EXTREMITIES: No pedal edema. No calf tenderness. NEUROLOGICAL: Patient is awake, alert and oriented x3. Cranial nerves 2 through 12 are grossly intact. - Labs CBC & Chem 7: 06/23/18 08:02 06/23/18 08:02 Labs: Abnormal Lab Results - Last 24 Hours (Table) 06/22/18 06/22/18 Range/Units 08:37 08:37 RBC 2.58 L (3.80-5.40) m/uL Hgb 7.6 L D (11.4-16.0) gm/dL Hct 24.0 L (34.0-46.0) % Chloride 111 H (98-107) mmol/L Carbon Dioxide 17 L (22-30) mmol/L BUN 31 H (7-17) mg/dL Creatinine 1.44 H (0.52-1.04) mg/dL Glucose 106 H (74-99) mg/dL Calcium 8.3 L (8.4-10.2) mg/dL Microbiology - Last 24 Hours (Table) 06/21/18 16:19 Gram Stain - Preliminary Chest Wound Culture - Preliminary Presumptive MRSA Group D Enterococcus 06/20/18 19:00 Gram Stain - Final Breast - Right Wound Culture - Final Staphylococcus aureus 06/20/18 18:49 Blood Culture - Preliminary Blood No Growth after 48 hours 06/20/18 19:37 Urine Culture - Final Urine,Voided Assessment and Plan Assessment: Assessment and Plan Plan: 1. Bacteremia with bilateral breast cellulitis and wound infection status post recent excision of right and left reconstructed breast and chest wall deformities with closure with Dr. Christianson on May 29. Patient is currently on IV antibiotics the form of daptomycin and Zosyn. Consult with Dr. Martinez and Dr. Steve Moura. Dr. Christianson consult it as well. CAT scan of the chest with contrast ordered. 2. Acute kidney injury with chronic kidney disease stage III. Baseline creatinine 0.8. Patient will be given IV fluid bolus of 500 mL. Continue IV fluids at 75 mL per hour. 3. Acute delirium with encephalopathy thought to be due 2 metabolic encephalopathy however the possibility of the skin even still need to be investigated. Computed tomography scan of the brain will be done without contrast, continue patient on Eliquis, obtain neurology consultation, check ammonia level. 4. Hypertension. Continue losartan 50 mg daily and Toprol-XL 100 mg daily. 5. Hyperlipidemia. Continue atorvastatin 10 mg daily at bedtime. 6. Paroxysmal atrial fibrillation. Continue eliquis 5 mg twice daily, aspirin 81 mg daily, Toprol-XL 100 mg daily. 7. History of ischemic bowel status post exploratory laparotomy and hemicolectomy at [facility], [facility]. 8. History of atrial septal defect with closure in 2005 at [facility]. 9. DVT prophylaxis. Patient is on eliquis. 10. Gastrointestinal prophylaxis. Pepcid. 11. Pulmonary prophylaxis. Incentive spirometry. 12. We will follow the patient very closely.
--- NOTE | 2018-06-23 10:54 | CT ---
EXAMINATION TYPE: CT brain wo con DATE OF EXAM: 06/23/2018 COMPARISON: Previous study dated 01/09/2018. HISTORY: Patient poor historian. CT DLP: 1017.9 mGycm Automated exposure control for dose reduction was used. FINDINGS: There are generalized changes of sulcal prominence and ventriculomegaly, compatible with atrophic jeannette nge. There is diffuse periventricular white matter lucency, compatible with chronic white matter isch emic change. There is no acute focal lesion, mass effect or midline shift identified. I do not see ev idence of intracranial blood. Visualized portions of the paranasal sinuses and mastoids are clear. The bony calvarium is intact. IMPRESSION: 1. NO ACUTE INTRACRANIAL ABNORMALITY. 2. MILD DEGENERATIVE CHANGE.
[2018-06-23] MEDS: DAPTOmycin 500 MG in SODIUM CHLORIDE 0.9% 50 ML IVPB SCH (14:49)
[2018-06-23] MEDS: MELATONIN 5 MG TABLET PO SCH (20:17)
[2018-06-23] MEDS: ATORVASTATIN 10 MG TAB PO SCH (20:17)
[2018-06-23] MEDS ORDERED: QUEtiapine 25 MG TAB PO SCH (21:00)
[2018-06-23] MEDS ORDERED: risperiDONE 0.25 MG TAB PO ONE (21:00)
--- NOTE | 2018-06-23 22:46 | P.CNNES ---
History of Present Illness Consult date: 06/23/18 History of Present Illness: Patient is a 77-year-old right-handed white female presented to the emergency room due to positive blood culture. She was admitted through [facility] with postoperative infection of breast incision. She had had a mastectomy done and had spacers placed for implants at later date. Spacers were removed several weeks ago and the area around the cindy had become swollen and tender. She has been on antibiotics and when she was called and told she had a positive blood Culture she came to the emergency room. She was admitted to the hospital on June 20, 2018 and at that time she was awake alert and oriented 3. Patient apparently became confused and delirious yesterday and neurology is requested to see the patient today for confusion. She did have a CAT scan of the brain today which showed atrophy and there was no acute findings. The patient has multiple medical comorbidities including history of bilateral breast cancer this postmastectomy, atrial fibrillation, GERD, hyperlipidemia, hypertension, anemia, sepsis, atrial septal defect status post closure, Review of Systems ROS unobtainable: due to mental status Past Medical History Past Medical History: Atrial Fibrillation, Cancer, GERD/Reflux, Hyperlipidemia, Hypertension Additional Past Medical History / Comment(s): anemia,sepsis admitted to [facility] 2017,Hx Breast Cancer 09/22, 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 History of Any Multi-Drug Resistant Organisms: Other MDRO Past Surgical History: Bowel Resection, Breast Surgery, Heart Catheterization, Orthopedic Surgery, Tubal Ligation Additional Past Surgical History / Comment(s): LEFT rotator cuff repair,. Bilateral mastectomy 09/22, had reconstruction sx w/tissue expanders. may 2018 had excision rt and lt reconstructred breast/chest wall deformities. bowel resection 10/2016, heart cath 12/13/17, tiff cataracts,lower dental implants. Past Anesthesia/Blood Transfusion Reactions: Previous Problems w/ Anesthesia, Postoperative Nausea & Vomiting (PONV) Additional Past Anesthesia/Blood Transfusion Reaction / Comment(s): PATIENT STATES HER TEETH IMPLANTS WERE DISLODGED DURING INTUBATION AND SHE SWALLOWED A TOOTH 2016. pt stated she has recieved blood transfusion in past. no reaction to it. Smoking Status: Former smoker - Past Family History Mother Family Medical History: Myocardial Infarction (NE) Additional Family Medical History / Comment(s): in her 80's Father Family Medical History: Myocardial Infarction ([place]) Additional Family Medical History / Comment(s): age 56 from [place] Brother(s) Family Medical History: Cancer Medications and Allergies Home Medications Medication Instructions Recorded Confirmed Type Apixaban [Eliquis] 5 mg PO BID 11/24/16 06/20/18 History Escitalopram [Lexapro] 10 mg PO QAM 01/12/17 06/20/18 History Ferrous Sulfate [Iron (65 MG 325 mg PO DAILY 12/14/17 06/20/18 History Elemental)] Metoprolol Succinate (ER) [Toprol 100 mg PO QAM 12/14/17 06/20/18 History XL] Atorvastatin Calcium [Lipitor] 10 mg PO HS 03/19/18 06/20/18 History Fluticasone Nasal Christiana [Flonase 1 spray EA NOSTRIL DAILY PRN 03/19/18 06/20/18 History Nasal Christiana] Furosemide [Lasix] 20 mg PO DAILY 03/19/18 06/20/18 History Melatonin 10 mg PO HS tablet 03/25/18 06/20/18 Rx NIFEdipine [Procardia] 10 mg PO TID #60 cap 03/25/18 06/20/18 Rx Losartan [Cozaar] 100 mg PO QAM 05/20/18 06/20/18 History Fluconazole [Diflucan] 100 mg PO DAILY 05/24/18 06/20/18 History Nystatin [Nystop] 1 applic TOPICAL TID 05/24/18 06/20/18 History HYDROcodone/APAP 7.5-325MG [[place] 2 tab PO Q4H PRN 3 Days #30 tab 05/29/1806/20 Rx 7.5-325] Allergies Allergy/AdvReac Type Severity Reaction Status Date / Time No Known Allergies Allergy Verified 06/20/18 18:36 Physical Examination - Vital Signs Vital Signs: Vital Signs Temp Pulse Resp BP Pulse Ox 06/23/18 15:00 99.4 F 93 18 153/66 92 L 06/23/18 08:42 95 06/23/18 07:00 98.5 F 87 18 124/58 96 06/22/18 23:00 98.7 F 91 20 117/68 95 Intake and Output 06/23/18 06/23/18 06/23/18 06:59 14:59 22:59 Intake Total 50 Balance 50 Intake: Oral 50 Other: # Voids 1 5 - Constitutional General appearance: average body habitus - EENT EENT: PERRL, hearing intact, vision intact - Respiratory Respiratory: lungs clear - Cardiovascular Cardiovascular: regular rate - Neurologic Neurologic examination: Mental status: She was awake she was alert she was oriented to person she knew she was in [facility] she thought the city was [place] the year was 2019 the month was June the date was the she knew it was Sunday. He is disoriented as to how long she has been in the hospital. She thought she had come into the hospital today. She knew her address and her phone number. He is able to give some information such as the fact that she lives alone and has 5 children and she was able to name her doctors. He had no specific complaints. Speech was fluent there was no a aphasia. She was able to spell world forward and backward. She was able to do simple additions but had some difficulty with subtraction. Speech examination: intact Detailed motor examination: grossly full strength in all extremities Detailed sensory examination: intact Reflexes: 2+: knee - Psychiatric Psychiatric: cooperative Results - Laboratory Findings CBC and BMP: 06/23/18 08:02 06/23/18 08:02 Abnormal Lab Findings: Abnormal Labs 06/20/18 06/20/18 06/20/18 18:49 18:49 18:49 RBC 3.25 L Hgb 9.7 L Hct 30.5 L Lymphocytes # 0.8 L APTT 31.3 H Sodium 136 L Chloride Carbon Dioxide 19 L BUN 31 H Creatinine 1.32 H Glucose Calcium Alkaline Phosphatase 150 H Albumin Urine Protein Urine Blood Ur Leukocyte Esterase Urine WBC Hyaline Casts 06/20/18 06/21/18 06/22/18 19:37 11:37 08:37 RBC Hgb Hct Lymphocytes # APTT Sodium Chloride 108 H 111 H Carbon Dioxide 18 L 17 L BUN 32 H 31 H Creatinine 1.57 H 1.44 H Glucose 109 H 106 H Calcium 8.2 L 8.3 L Alkaline Phosphatase Albumin Urine Protein 1+ H Urine Blood Trace H Ur Leukocyte Esterase Moderate H Urine WBC 8 H Hyaline Casts 7 H 06/22/18 06/23/18 06/23/18 08:37 08:02 08:02 RBC 2.58 L 2.90 L Hgb 7.6 L D 8.4 L Hct 24.0 L 26.6 L Lymphocytes # APTT Sodium Chloride 110 H Carbon Dioxide 19 L BUN Creatinine Glucose 104 H Calcium Alkaline Phosphatase Albumin 3.0 L Urine Protein Urine Blood Ur Leukocyte Esterase Urine WBC Hyaline Casts Assessment and Plan (1) Metabolic encephalopathy Current Visit: Yes Status: Acute SNOMED Code(s): 09785700 (2) Postoperative infection of breast incision Current Visit: Yes Status: Acute SNOMED Code(s): 405585631 Plan: The patient is a 77-year-old woman admitted to the hospital with wound infection and positive blood culture. She has a history of bilateral breast cancer status post mastectomy with spacers placed and later removed. He has been confused since yesterday. Neurology is requested to see the patient for evaluation of confusion. On neurologic assessment the patient is pleasantly confused. She has a mild metabolic encephalopathy. CT of the brain did not show any acute findings. Will check EEG and thyroid and B12 and magnesium level
[2018-06-24] MEDS: PIPERACILLIN-TAZOBACTAM 3.375 GM in DEXTROSE/WATER 1 50ML.BAG IVPB SCH ×2 (03:19→11:34)
--- NOTE | 2018-06-24 08:26 | P.PN ---
Subjective Progress Note Date: 06/24/18 The patient is a 77-year-old white female admitted with bilateral cellulitis of the chest wall following revision of bilateral mastectomy incisions and closure with advancement flaps. The most recent surgery was done May 29, 2018. The patient had cultures performed and the culture of the wound site revealed methicillin resistant staph aureus and E. coli. The patient has been seen by Dr. Martinez is presently on Zosyn. The patient was noted to have some increasing confusion yesterday and has been seen by neurology. The patient this morning appears to be somewhat confused but is alert and realizes she has an infection of her mastectomy incision sites. Objective - Vital Signs Vital signs: Vital Signs Temp 98.8 F 06/23/18 23:00 Pulse 90 06/23/18 23:00 Resp 18 06/23/18 23:00 BP 119/69 06/23/18 23:00 Pulse Ox 98 06/23/18 23:00 Intake & Output 06/23/18 06/24/18 06/24/18 18:59 06:59 18:59 Other: # Voids 5 3 - Constitutional General appearance: Present: obese - EENT Eyes: Present: EOMI - Neck Neck: Present: normal ROM - Respiratory Details: Diminished breath sounds bilaterally at the bases - Cardiovascular Heart sounds: normal: S1, S2 - Integumentary Integumentary Comment(s): Some persistent erythema of the right chest wall decreased from admission, resolving cellulitis Decreased seropurulent drainage cindy are removed Left chest wall decreased erythema, cindy removed - Labs CBC & Chem 7: 06/23/18 08:02 06/23/18 08:02 Labs: Abnormal Lab Results - Last 24 Hours (Table) 06/23/18 06/23/18 Range/Units 08:02 08:02 RBC 2.90 L (3.80-5.40) m/uL Hgb 8.4 L (11.4-16.0) gm/dL Hct 26.6 L (34.0-46.0) % Chloride 110 H (98-107) mmol/L Carbon Dioxide 19 L (22-30) mmol/L Glucose 104 H (74-99) mg/dL Albumin 3.0 L (3.5-5.0) g/dL Microbiology - Last 24 Hours (Table) 06/21/18 16:19 Gram Stain - Final Chest Wound Culture - Final Methicillin resist S. aureus Enterococcus faecalis 06/20/18 18:49 Blood Culture - Preliminary Blood No Growth after 72 hours - Imaging and Cardiology CT scan - chest: report reviewed Assessment and Plan Assessment: Impression/plan: 1. left chest wall cellulitis patient on IV antibiotics in the form of Zosyn 2. Hypertension 3. Hyperlipidemia 4. Atrial fibrillation 5. History of ischemic bowel 6. History of atrial septal defect with closure in 2005 at [facility] 7. Confusion/neurology consult head CT obtained Plan: 1. The patient at this time does not require any surgical intervention 2. Consultation with Dr. Lazaro/plastic surgery 3. cindy removed 4. will review chest CT scan
[2018-06-24 09:19] LABS: Basophils % (A) 0 %; Eosinophils # (A) 0.3 k/uL (0-0.7); Eosinophils % (A) 4 %; HGB 8.5 gm/dL (11.4-16.0); Lymphocytes # (A) 0.9 k/uL (1.0-4.8); Lymphocytes % (A) 10 %; MCH 29.2 pg (25.0-35.0); MCHC 32.7 g/dL (31.0-37.0); MCV 89.4 fL (80.0-100.0); Mean Platelet Volume 6.9; Monocytes # (A) 0.5 k/uL (0-1.0); Monocytes % (A) 6 %; Neutrophils # (A) 6.9 k/uL (1.3-7.7); Neutrophils % (A) 79 %; Platelet Count 373 k/uL (150-450); RBC 2.91 m/uL (3.80-5.40); RDW 14.5 % (11.5-15.5); WBC 8.7 k/uL (3.8-10.6)
[2018-06-24] MEDS: METOPROLOL SUCCINATE (ER) 100 MG TAB.ER.24H PO SCH (09:22)
[2018-06-24] MEDS: LOSARTAN 50 MG TAB PO SCH (09:22)
[2018-06-24] MEDS: APIXABAN 5 MG TAB PO SCH (09:22)
[2018-06-24] MEDS: NIFEdipine 10 MG CAP PO SCH ×2 (09:22→16:24)
[2018-06-24] MEDS: ESCITALOPRAM 10 MG TAB PO SCH (09:22)
[2018-06-24] MEDS: SODIUM CHLORIDE 0.9% 1,000 ML IV SCH (09:23)
[2018-06-24] MEDS: FAMOTIDINE 20 MG TAB PO SCH (09:23)
[2018-06-24 09:31] LABS: Calcium 8.6 mg/dL (8.4-10.2); Potassium 3.5 mmol/L (3.5-5.1)
[2018-06-24] MEDS: FUROSEMIDE 20 MG TAB PO SCH (09:42)
[2018-06-24 12:20] LABS: T4, Free (Free Thyroxine) 1.75 ng/dL (0.78-2.19)
--- NOTE | 2018-06-24 13:27 | P.DS ---
Providers Date of admission: 06/20/18 20:20 Attending physician: Luisana Quintanilla Consults: 06/20/18 20:20 Consult Physician Urgent Consulting Provider: Caleb Martinez Consult Reason/Comments: Breast infection Do you want consulting provider notified?: Yes Consult Physician Urgent Consulting Provider: Coleen Ellsworth Consult Reason/Comments: Postoperative breast Do you want consulting provider notified?: Yes 06/21/18 11:17 Consult Physician Routine Consulting Provider: Gerardo Christianson Consult Reason/Comments: wound infection Do you want consulting provider notified?: Yes 06/23/18 09:44 Consult Physician Routine Consulting Provider: Eduardo Hernandez Consult Reason/Comments: acute confusion Do you want consulting provider notified?: Yes Primary care physician: Luisana Quintanilla [facility] Course: This is a 77-year-old female patient of Dr. 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 Patient states she had breast surgery done by Dr. Christianson at [facility]. (She does not know surgeon's full name). She states one shoe repairman did not work and both expanders have been removed. She states that it all started after she had a fall in her laundry room at home and the drain came out on the left breast and had ongoing nonhealing wound on the left side. She was hospitalized March 19 through March 25 and was discharged on Invanz for 14 days as recommended by Dr. Martinez. On May 29, patient underwent excision of right and left reconstructed breast and chest wall deformities with closure via local advancement flap with Dr. Christianson at [facility]. She states the cindy are still in from that procedure. She saw Dr. Christianson on Sunday and was told everything was okay and 2 drains were removed. She states she wasn't feeling well at home and her home care nurse decided to draw some blood including blood cultures which were processed at [facility]. She was then called that her blood culture was positive and she needed to come in the hospital for evaluation. Patient states that she just has not been feeling well for some time but no documented fever or chills. She feels weak, generalized malaise and lightheaded. She has had ongoing drainage from her breast wounds that has saturated through the dressing into her gown. Patient presented with a white count of 8.1, temperature max 100.2, creatinine 1.32 and baseline is 0.8. Alkaline phosphatase 150. Urinalysis was clear with leukoesterase moderate, WBCs 8 in hyaline casts 7. Patient denies urinary symptoms. She was recently placed on Diflucan by Dr. Quintanilla the patient does not know why. She has been started on Rocephin and vancomycin and admitted to the [facility] floor and consults requested with Dr. Martinez and Dr. Steve Moura as well. Wound culture is in progress and blood culture is status received. We will attempt to contact Dr. Christianson and add a consult for him. Antibiotics changed to Zosyn and vancomycin. CT of the chest will be ordered with contrast and patient will receive 500 mL fluid bolus prior to study. 06/22: Patient is feeling better today she denies any fever or chills, she has been seen by infectious disease, she was started on IV antibiotic in the form of Cubicin and Zosyn, she has no complaints today. 06/23: Patient became confused and delirious yesterday she was quite agitated wanted to leave the hospital, patient was seen and evaluated today by myself she continues to be somewhat confused however she is more alert she is awake alert and oriented 2 she remembered that she saw me yesterday she knows the date she knows the name of the president, patient does have episode of confusion with she is in the hospital however this encephalopathy would be evaluated further we will send the patient for computed tomography scan of the brain to rule out any acute abnormalities, we will obtain neurology consultation. 06/24: Patient evaluated today, confusion has resolved. Patient underwent head CT yesterday for her confusion, CT showed no acute intracranial abnormalities and mild degenerative changes. Neurology is on consult, they have requested and EEG, feels confusion is mostly due to mild metabolic encephalopathy. Wound cultures show methicillin-resistant S. aureus and enterococcus faecalis, right breast culture is positive for staphylococcus aureus, blood cultures show no growth to date, urine culture is negative. Infectious disease is on consult, she remains on Daptomycin and Zosyn for now. Vital signs are stable, she remains afebrile. She will be discharged home today, PICC line will be placed, awaiting on ID recommendation on antibiotic choice. Patient reports she wants to be discharged home, offered ECF, patient declined. Discharge diagnoses 1. Bacteremia with bilateral breast cellulitis and wound infection status post recent excision of right and left reconstructed breast and chest wall deformities with closure with Dr. Christianson on May 29. 2. Acute kidney injury with chronic kidney disease stage III. 3. Acute delirium with encephalopathy thought to be due 2 metabolic encephalopathy 4. Hypertension. 5. Hyperlipidemia. 6. Paroxysmal atrial fibrillation. 7. History of ischemic bowel status post exploratory laparotomy and hemicolectomy at [facility]. 8. History of atrial septal defect with closure in 2005 at [facility]. The above impression and plan of care have been discussed and directed by signing physician. Teodora Berman nurse practitioner acting as scribe for signing physician. Patient Condition at Discharge: Good Plan - Discharge Summary Discharge Rx Participant: Yes New Discharge Prescriptions: No Action Apixaban [Eliquis] 5 mg PO BID Escitalopram [Lexapro] 10 mg PO QAM Metoprolol Succinate (ER) [Toprol XL] 100 mg PO QAM Ferrous Sulfate [Iron (65 MG Elemental)] 325 mg PO DAILY Atorvastatin Calcium [Lipitor] 10 mg PO HS Furosemide [Lasix] 20 mg PO DAILY Fluticasone Nasal [place] [Flonase Nasal [place]] 1 spray EA NOSTRIL DAILY PRN PRN Reason: Congestion Melatonin 10 mg PO HS tablet NIFEdipine [Procardia] 10 mg PO TID #60 cap Losartan [Cozaar] 100 mg PO QAM Nystatin [Nystop] 1 applic TOPICAL TID Fluconazole [Diflucan] 100 mg PO DAILY HYDROcodone/APAP 7.5-325MG [[place] 7.5-325] 2 tab PO Q4H PRN 3 Days #30 tab PRN Reason: Pain Discharge Medication List Apixaban [Eliquis] 5 mg PO BID 11/24/16 [History] Escitalopram [Lexapro] 10 mg PO QAM 01/12/17 [History] Ferrous Sulfate [Iron (65 MG Elemental)] 325 mg PO DAILY 12/14/17 [History] Metoprolol Succinate (ER) [Toprol XL] 100 mg PO QAM 12/14/17 [History] Atorvastatin Calcium [Lipitor] 10 mg PO HS 03/19/18 [History] Fluticasone Nasal [place] [Flonase Nasal [place]] 1 spray EA NOSTRIL DAILY PRN 03/19 [History] Furosemide [Lasix] 20 mg PO DAILY 03/19/18 [History] Melatonin 10 mg PO HS tablet 03/25/18 [Rx] NIFEdipine [Procardia] 10 mg PO TID #60 cap 03/25/18 [Rx] Losartan [Cozaar] 100 mg PO QAM 05/20/18 [History] Fluconazole [Diflucan] 100 mg PO DAILY 05/24/18 [History] Nystatin [Nystop] 1 applic TOPICAL TID 05/24/18 [History] HYDROcodone/APAP 7.5-325MG [[place] 7.5-325] 2 tab PO Q4H PRN 3 Days #30 tab 05/29 [Rx] Follow up Appointment(s)/Referral(s): Gerardo Christianson MD [STAFF PHYSICIAN] - 1 Week Luisana Quintanilla MD [Primary Care Provider] - 1-2 days Coleen Ellsworth MD [STAFF PHYSICIAN] - 1 Week Patient Instructions/Handouts: Surgical Site Infections (DC) Activity/Diet/Wound Care/Special Instructions: Cardiac diet. Activity as tolerated. [facility] [phone].
[2018-06-24 14:40] VITALS: BP 127/71; PULSE 92; RESP 18; TEMP 98.6
[2018-06-24] MEDS: DAPTOmycin 500 MG in SODIUM CHLORIDE 0.9% 50 ML IVPB SCH (14:43)
--- NOTE | 2018-06-24 22:32 | P.PN ---
Subjective Progress Note Date: 06/24/18 This is a 77-year-old female patient known to ID service as she was seen in March of this year with past medical history significant for breast cancer status post bilateral mastectomy and placement of expanders subsequently removed. Patient states she had breast surgery done by Dr. Christianson at [facility]. She states one senior manager mmcoe did not work and both expanders have been subsequently removed. She states that it all started after she had a fall in her laundry room at home and the drain came out on the left breast and it has been packed ever since. She has had ongoing wound on the left side. She was hospitalized March 19 through March 25 and was discharged on Invanz for 14 days done at [facility]. On May 29, patient underwent excision of right and left reconstructed breast and chest wall deformities with closure via local advancement flap with Dr. Christianson at [facility]. She states the cindy are still in. She saw Dr. Christianson on Sunday and was told everything was okay and 2 drains were removed. She states she wasn't feeling well at home and her home care nurse decided to draw some blood and including blood cultures which were processed at [facility]. She was then called that her blood culture was positive and she needed to come in the hospital for evaluation. Patient states that she just has not been feeling well for some time but now documented fever or chills. She feels weak generalized malaise and lightheaded. She has had ongoing drainage from her breast wounds that his saturated through the dressing into her gown. Patient presented with a white count of 8.1, temperature max 100.2, creatinine 1.32 and baseline is 0.8. Alkaline phosphatase 150. Urinalysis was clear with leukoesterase moderate, WBCs 8 in [place] casts 7. Patient denies urinary symptoms. She was recently placed on Diflucan by Dr. Quintanilla the patient does not know why. She has been started on Rocephin and vancomycin and admitted to the [facility] floor and has consult in place with Dr. Steve Moura as well. Wound culture is in progress and blood culture is status received. 06/24/2018 patient is improved and is being readied for discharge to home. She' s feeling better especially after all the cindy were removed. Minimal drainage is noted. Denies further fevers or chills. Wound culture with MRSA and enterococcus. Objective - Vital Signs Vital signs: Vital Signs Temp 98.6 F 06/24/18 14:39 Pulse 92 06/24/18 14:39 Resp 18 06/24/18 14:39 BP 127/71 06/24/18 14:39 Pulse Ox 96 06/24/18 14:39 Intake & Output 06/24/18 06/24/18 06/25/18 06:59 18:59 06:59 Intake Total 250 Balance 250 Intake: Intake, IV Titration 50 Amount Piperacillin-Tazobactam 3 50 .375 gm In Dextrose/Water 1 50ml.bag @ 12.5 mls/hr IVPB Q8H [facility] Rx#: [id number] Oral 200 Other: Voiding Method Toilet # Voids 3 2 # Bowel Movements 0 - Exam en: This is a 77-year-old female. She is in bed and appears to be comfortable and in no acute distress. HEENT: Head is atraumatic, normocephalic. Pupils equal, round. Sclerae is anicteric. Conjunctiva pink. Mucous members of the mouth are moist. NECK: Supple. No JVD. No lymphadenopathy. No thyromegaly. LUNGS: Clear to auscultation. No wheezes or rhonchi. No intercostal retractions. HEART: Regular rate and rhythm. No murmur. BREAST: [place] are all removed. There is improvement to the drainage to the right and left surgical wounds at the anterior axillary line bilaterally patient is more comfortable ABDOMEN: Soft. Bowel sounds are present. No masses. No tenderness. EXTREMITIES: No pedal edema. No calf tenderness. NEUROLOGICAL: Patient is awake, alert and oriented x3. Cranial nerves 2 through 12 are grossly intac - Labs CBC & Chem 7: 06/24/18 08:43 06/24/18 08:43 Labs: Abnormal Lab Results - Last 24 Hours (Table) 06/24/18 06/24/18 06/24/18 Range/Units 08:43 08:43 08:43 RBC 2.91 L (3.80-5.40) m/uL Hgb 8.5 L (11.4-16.0) gm/dL Hct 26.0 L (34.0-46.0) % Lymphocytes # 0.9 L (1.0-4.8) k/uL Chloride 109 H (98-107) mmol/L Carbon Dioxide 21 L (22-30) mmol/L Glucose 100 H (74-99) mg/dL TSH 0.226 L (0.465-4.680) mIU/L Microbiology - Last 24 Hours (Table) 06/21/18 16:19 Anaerobic Culture - Final Chest Anaerobic Gram Positive Cocci 06/20/18 18:49 Blood Culture - Preliminary Blood No Growth after 96 hours 06/21/18 16:19 Gram Stain - Final Chest Wound Culture - Final Methicillin resist S. aureus Enterococcus faecalis Laboratory Results WBC 8.7 k/uL (3.8-10.6) 06/24/18 08:43 RBC 2.91 m/uL (3.80-5.40) L 06/24/18 08:43 Hgb 8.5 gm/dL (11.4-16.0) L 06/24/18 08:43 Hct 26.0 % (34.0-46.0) L 06/24/18 08:43 MCV 89.4 fL (80.0-100.0) 06/24/18 08:43 MCH 29.2 pg (25.0-35.0) 06/24/18 08:43 MCHC 32.7 g/dL (31.0-37.0) 06/24/18 08:43 RDW 14.5 % (11.5-15.5) 06/24/18 08:43 Plt Count 373 k/uL (150-450) 06/24/18 08:43 Neutrophils % 79 % 06/24/18 08:43 Lymphocytes % 10 % 06/24/18 08:43 Monocytes % 6 % 06/24/18 08:43 Eosinophils % 4 % 06/24/18 08:43 Basophils % 0 % 06/24/18 08:43 Neutrophils # 6.9 k/uL (1.3-7.7) 06/24/18 08:43 Lymphocytes # 0.9 k/uL (1.0-4.8) L 06/24/18 08:43 Monocytes # 0.5 k/uL (0-1.0) 06/24/18 08:43 Eosinophils # 0.3 k/uL (0-0.7) 06/24/18 08:43 Basophils # 0.0 k/uL (0-0.2) 06/24/18 08:43 Hypochromasia Slight 06/23/18 08:02 PT 10.5 sec (9.0-12.0) 18 18:49 INR 1.1 (<1.2) 06/20/18 18:49 APTT 31.3 sec (22.0-30.0) H 06/20/18 18:49 Sodium 143 mmol/L (137-145) 06/24/18 08:43 Potassium 3.5 mmol/L (3.5-5.1) 06/24/18 08:43 Chloride 109 mmol/L (98-107) H 06/24/18 08:43 Carbon Dioxide 21 mmol/L (22-30) L 06/24/18 08:43 Anion Gap 13 mmol/L 06/24/18 08:43 BUN 8 mg/dL (7-17) 06/24/18 08:43 Creatinine 0.87 mg/dL (0.52-1.04) 06/24/18 08:43 Est GFR (CKD-EPI)AfAm 74 (>60 ml/min/1.73 sqM) 06/24/18 08:43 Est GFR (CKD-EPI)NonAf 64 (>60 ml/min/1.73 sqM) 06/24/18 08:43 Glucose 100 mg/dL (74-99) H 06/24/18 08:43 Plasma Lactic Acid Deion 0.8 mmol/L (0.7-2.0) 06/23/18 08:02 Calcium 8.6 mg/dL (8.4-10.2) 06/24/18 08:43 Magnesium 2.0 mg/dL (1.6-2.3) 06/24/18 08:43 Total Bilirubin 0.5 mg/dL (0.2-1.3) 06/23/18 08:02 AST 17 U/L (14-36) 06/23/18 08:02 ALT 29 U/L (9-52) 06/23/18 08:02 Alkaline Phosphatase 111 U/L (38-126) 06/23/18 08:02 Ammonia <9 umol/L (<30) 06/23/18 08:02 Total Protein 6.3 g/dL (6.3-8.2) 06/23/18 08:02 Albumin 3.0 g/dL (3.5-5.0) L 06/23/18 08:02 Vitamin B12 846.0 pg/mL (200.0-944.0) 06/24/18 08:43 TSH 0.226 mIU/L (0.465-4.680) L 06/24/18 08:43 Free T4 1.75 ng/dL (0.78-2.19) 06/24/18 08:43 Urine Color Yellow 06/20/18 19:37 Urine Appearance Clear (Clear) 06/20/18 19:37 Urine pH 5.5 (5.0-8.0) 06/20/18 19:37 Ur Specific [place] 1.014 (1.001-1.035) 06/20/18 19:37 Urine Protein 1+ (Negative) H 06/20/18 19:37 Urine Glucose (UA) Negative (Negative) 06/20/18 19:37 Urine Ketones Negative (Negative) 06/20/18 19:37 Urine Blood Trace (Negative) H 06/20/18 19:37 Urine Nitrite Negative (Negative) 06/20/18 19:37 Urine Bilirubin Negative (Negative) 06/20/18 19:37 Urine Urobilinogen 2.0 mg/dL (<2.0) 06/20/18 19:37 Ur Leukocyte Esterase Moderate (Negative) H 06/20/18 19:37 Urine RBC 2 /hpf (0-5) 06/20/18 19:37 Urine WBC 8 /hpf (0-5) H 06/20/18 19:37 Ur Squamous Epith Cells <1 /hpf (0-4) 06/20/18 19:37 Hyaline Casts 7 /lpf (0-2) H 06/20/18 19:37 Microbiology 06/21/18 16:19 Chest Anaerobic Culture - Final Anaerobic Gram Positive Cocci 06/20/18 18:49 Blood Blood Culture - Preliminary No Growth after 96 hours 06/21/18 16:19 Chest Gram Stain - Final 06/21/18 16:19 Chest Wound Culture - Final Methicillin resist S. aureus Enterococcus faecalis 06/20/18 19:00 Breast - Right Gram Stain - Final 06/20/18 19:00 Breast - Right Wound Culture - Final Staphylococcus aureus 06/20/18 19:37 Urine,Voided Urine Culture - Final Assessment and Plan (1) Postoperative infection of breast incision Narrative/Plan: With the patient's history and some acute renal failure antibiotic therapy at this time will be with Zosyn and daptomycin any culture results. Approximately 120s cindy are removed and a large surgical line. There is some drainage was sent to the laboratory for culture. Blood cultures are also in process. The patient might require outpatient antibiotic therapy. His intravenous was determined once cultures are available. Hopefully can be seen by her plastic surgeon next week. The local breast surgeon did evaluate and requested the staple removal. 06/24/2018 on the last visit the cindy were all removed. She tolerated it well. Culture now has evidence of MRSA as well as enterococcus. We'll arrange for outpatient intravenous antibiotic therapy with daptomycin for follow-up in the office at the end of her antibiotic therapy. Local wound care is with nonstick dressing should absorb any drainage. Patient's IV access was ordered today and midline has been placed and patient be discharged home today. Status: Acute Code(s): T81.4XXA - INFECTION FOLLOWING A PROCEDURE, INITIAL ENCOUNTER SNOMED Code(s): 483428481
--- NOTE | 2018-06-27 09:27 | CDI ---
Last Revision, September 2017 Documentation Clarification Form Date: 06/27/18 From: Carlota Gallo Andree Cortez, Line Service Technician Hours-8:30 am & 5 pm M-F Admit Date: 06/20/2018 8:20:00 PM Patient Name: Cat Overton Visit Number: [id number] Discharge Date: 06/24/18 ATTENTION: The Clinical Documentation Specialists (CDI) and [facility] Coding Staff appreciate your assistance in clarifying documentation. Please respond to the clarification below the line at the bottom and electronically sign. The CDI & [facility] Coding staff will review the response and follow-up if needed. Please note: Queries are made part of the Legal Health Record. If you have any questions, please contact the author of this message via ITS. Aníbal Sagastume MD Bacteremia is documented in the H&P, Dr Martinez consult, your prg notes on 06/22 & 06/23 and your Dischrg Summary. Per H&P by Dr Ellsworth "Sepsis secondary to left chest wall cellulitis" Patient history/risk factors: bilateral breast cellulitis and wound infection s/ p recent excision of right and left reconstucted breast and chest wall. WBC: 8.1 Left Shift: 5.9 Blood Culture: recent BC reported positive and go to hospital for antibiotics Consult: Dr. Martinez Treatment: IV Daptomycin and Zosyn Bacteremia is considered a lab finding. There is conflicting documentation re: sepsis vs bacteremia as final diagnosis. Please clarify if the lab finding/bacteremia is clinical indicator of a more definitive medical diagnosis such as: Sepsis due to cellulitis Sepsis ruled out Bacteremia due to Other, please specify Unable to determine Bacteremia due to cellulitis of the chest wall. MARCE
== END 2018-06-24 18:31 | disposition home health service (06) | DRG 862 ==
LOC: EC 17:35 → 4MS4W 20:20
PROVIDERS: ADMIT Family Medicine; ATTEND Family Medicine
PROC: 05HD33Z Insertion of Infusion Device into Right Cephalic Vein, Percutaneous Approach (ICD-10-PCS; principal; 2018-06-24 15:15)
PROC: B54MZZA Ultrasonography of Right Upper Extremity Veins, Guidance (ICD-10-PCS; 2018-06-24 15:15)
DX: T81.4XXA Infection following a procedure, initial encounter (principal); G93.41 Metabolic encephalopathy; L03.313 Cellulitis of chest wall; N17.9 Acute kidney failure, unspecified; I48.0 Paroxysmal atrial fibrillation; N18.3 Chronic kidney disease, stage 3 (moderate); I12.9 Hypertensive chronic kidney disease with stage 1 through stage 4 chronic kidney disease, or unspecified chronic kidney disease; K21.9 Gastro-esophageal reflux disease without esophagitis; E78.5 Hyperlipidemia, unspecified; E66.9 Obesity, unspecified; Z68.32 Body mass index [BMI] 32.0-32.9, adult; Z79.01 Long term (current) use of anticoagulants; Z79.51 Long term (current) use of inhaled steroids; Z79.899 Other long term (current) drug therapy; Z90.13 Acquired absence of bilateral breasts and nipples; Z90.49 Acquired absence of other specified parts of digestive tract; Z87.891 Personal history of nicotine dependence; Z85.3 Personal history of malignant neoplasm of breast; Z87.440 Personal history of urinary (tract) infections; Z97.2 Presence of dental prosthetic device (complete) (partial); Z98.51 Tubal ligation status; Z87.74 Personal history of (corrected) congenital malformations of heart and circulatory system; Z98.42 Cataract extraction status, left eye; Z98.41 Cataract extraction status, right eye; Z82.49 Family history of ischemic heart disease and other diseases of the circulatory system; Z80.9 Family history of malignant neoplasm, unspecified; Z83.3 Family history of diabetes mellitus; D64.9 Anemia, unspecified
CPT/HCPCS: 36415; 36569; 70450; 71250; 76937; 80048; 80053; 81001; 82140; 82607; 83605; 83735; 84439; 84443; 85025; 85027; 85610; 85730; 87040; 87070; 87075; 87077; 87086; 87186; 87205; 93005; 94760; 95819; 96365; 96366; 96375; 99284

== ENCOUNTER → 2018-06-28 | Outpatient (CLI) | payer MEDICARE ==
[~2018-06-28] MED LIST changes: +ALTEPLASE 2 MG VIAL (CATHFLO) IV NR; +ALTEPLASE 2 MG VIAL (CATHFLO) IV ONE; +DAPTOmycin 500 MG in SODIUM CHLORIDE 0.9% 50 ML IVPB NR; -DEXAMETHASONE SOD PHOSPHATE 10 MG/ML 1 ML VIAL IV ONE; -LACTATED RINGERS 1,000 ML IV SCH; -MIDAZOLAM 2 MG/2 ML VIAL IV PRN; -ONDANSETRON 4 MG/2 ML VIAL IVP ONE; +SODIUM CHLORIDE 0.9% 500 ML in EMPTY BAG 1 BAG IV PRN; -ceFAZolin IN SWFI 2 GM/20 ML SYRINGE IVP ONE
[2018-06-28 09:32] VITALS: BP 189/81; PULSE 60; RESP 16; TEMP 97.7
== END | disposition home or self-care (01) ==
LOC: PROCWHC3 09:19
PROVIDERS: ATTEND Internal Medicine Infectious Disease
DX: N61.1 Abscess of the breast and nipple (principal); R78.81 Bacteremia
CPT/HCPCS: 96365; 36593; J0878; J2997; G0463; 99213

== ENCOUNTER 2018-06-29 13:15 | Emergency (ER) | payer MEDICARE ==
--- NOTE | 2018-06-29 14:14 | ED ---
Recheck HPI - General Chief Complaint: Recheck/Abnormal Lab/Rx Stated Complaint: Picc Line Fell out Time Seen by Provider: 06/29/18 13:37 Source: patient Mode of arrival: ambulatory Limitations: no limitations - History of Present Illness Initial Comments: This a 77-year-old female with past medical history of breast cancer with masectomy 1 year ago with multiple surgical site infections including current MRSA infection. Pt presents today for CC of my midline fell out this morning Patient has had chronic infecton/issues with dihiscence since procedure including a current MRSA infection at surgical site. She is following Dr. Martinez with infectious disease and had a midline placed in the right arm just distal to the AC. She stated that at the time of placement she was told it was too small and it would need to be replaced Sunday at 2:00PM. Pt states that she had her morning dose of antibiotics at 10AM as scheduled without difficulty. However when showering an hour later it fell out while in the shower. She presents today for midline replacement. Upon arrival pt denies any symptoms states she feels great just needs line placement so she can dose her antibiotics tmrw. Patient denies any recent fever, chills, shortness of breath, chest pain, back pain, abdominal pain, nausea or vomiting, numbness or tingling , dysuria or hematuria, constipation or diarrhea, headaches or visual changes, or any other complaints. - Related Data Home Medications Medication Instructions Recorded Confirmed Apixaban [Eliquis] 5 mg PO BID 11/24/16 06/28/18 Escitalopram [Lexapro] 10 mg PO QAM 01/12/17 06/28/18 Ferrous Sulfate [Iron (65 MG 325 mg PO DAILY 12/14/17 06/28/18 Elemental)] Metoprolol Succinate (ER) [Toprol 100 mg PO QAM 12/14/17 06/28/18 XL] Atorvastatin Calcium [Lipitor] 10 mg PO HS 03/19/18 06/28/18 Fluticasone Nasal [place] [Flonase 1 spray EA NOSTRIL DAILY PRN 03/19/18 06/28/18 Nasal [place]] Furosemide [Lasix] 20 mg PO DAILY 03/19/18 06/28/18 Losartan [Cozaar] 100 mg PO QAM 05/20/18 06/28/18 Fluconazole [Diflucan] 100 mg PO DAILY 05/24/18 06/28/18 Nystatin [Nystop] 1 applic TOPICAL TID 05/24/18 06/28/18 Previous Rx's Medication Instructions Recorded Melatonin 10 mg PO HS tablet 03/25/18 NIFEdipine [Procardia] 10 mg PO TID #60 cap 03/25/18 HYDROcodone/APAP 7.5-325MG [[place] 2 tab PO Q4H PRN 3 Days #30 tab 05/29/18 7.5-325] DAPTOmycin [Daptomycin] 500 mg IV DAILY #14 vial 06/24/18 Allergies Allergy/AdvReac Type Severity Reaction Status Date / Time No Known Allergies Allergy Verified 06/29/18 13:23 Review of Systems ROS Statement: Those systems with pertinent positive or pertinent negative responses have been documented in the HPI. ROS Other: All systems not noted in ROS Statement are negative. Constitutional: Denies: fever, chills, night sweats Eyes: Denies: vision change ENT: Denies: ear pain, throat pain Respiratory: Denies: cough, dyspnea, wheezes, hemoptysis, stridor Cardiovascular: Denies: chest pain, palpitations, dyspnea on exertion Endocrine: Denies: fatigue Gastrointestinal: Denies: abdominal pain, nausea, vomiting, diarrhea, constipation, hematemesis, melena Genitourinary: Denies: urgency, dysuria, frequency, hematuria, discharge Musculoskeletal: Denies: back pain Skin: Reports: as per HPI (There is surgical site where masectomy performed across chest b/l). 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 History of Any Multi-Drug Resistant Organisms: MRSA, Other MDRO Date of last positivie culture/infection: 06/21/18 MDRO Source:: MRSA CHEST Past Surgical History: Bowel Resection, Breast Surgery, Heart Catheterization, Orthopedic Surgery, Tubal Ligation Additional Past Surgical History / Comment(s): LEFT rotator cuff repair,. Bilateral mastectomy 09/22, had reconstruction sx w/tissue expanders. may 2018 had excision rt and lt reconstructred breast/chest wall deformities. bowel resection 10/2016, heart cath 12/13/17, tiff cataracts,lower dental implants. Past Anesthesia/Blood Transfusion Reactions: Previous Problems w/ Anesthesia, Postoperative Nausea & Vomiting (PONV) Additional Past Anesthesia/Blood Transfusion Reaction / Comment(s): PATIENT STATES HER TEETH IMPLANTS WERE DISLODGED DURING INTUBATION AND SHE SWALLOWED A TOOTH 2015. pt stated she has recieved blood transfusion in past. no reaction to it. Past Psychological History: No Psychological Hx Reported Smoking Status: Former smoker Past Alcohol Use History: None Reported Past Drug Use History: None Reported - Past Family History Mother Family Medical History: Myocardial Infarction ([place]) Additional Family Medical History / Comment(s): in her 80's Father Family Medical History: Myocardial Infarction ([place]) Additional Family Medical History / Comment(s): age 56 from [place] Brother(s) Family Medical History: Cancer General Exam - General Exam Comments Initial Comments: General: The patient is awake and alert, in no distress, and does not appear acutely ill. Eye: Pupils are equal, round and reactive to light, extra-ocular movements are intact. No nystagmus. There is normal conjunctiva bilaterally. No signs of icterus. Cardiovascular: There is a regular rate and rhythm. No murmur, rub or gallop is appreciated. Respiratory: Lungs are clear to auscultation, respirations are non-labored, breath sounds are equal. No wheezes, stridor, rales, or rhonchi. Gastrointestinal: Large surgical incision vertical below umbilicalSoft, non- distended, non-tender abdomen without masses or organomegaly noted. Musculoskeletal: Normal ROM, no tenderness. Strength 5/5. Sensation intact. Pulses equal bilaterally 2+. Neurological: A&O x 3. CN II-XII intact, There are no obvious motor or sensory deficits. Coordination appears grossly intact. Speech is normal. Skin: Skin is warm and dry and no rashes or lesions are noted. C/D/I badges over anterior chest, incisions appear nonerythematous and no evidence of active drainge. No surrounding erythema. Psychiatric: Cooperative, appropriate mood & affect, normal judgment. Limitations: no limitations Course Vital Signs 06/29/18 06/29/18 13:21 17:13 Temperature 98.2 F 97.8 F Pulse Rate 57 L 60 Respiratory 16 18 Rate Blood Pressure 159/79 211/86 O2 Sat by Pulse 98 100 Oximetry Medical Decision Making - Medical Decision Making Pt initially insisted she had a midline placed. Radiology was paged for on-call interventional radiologist for midline placement as we do not have an IV team available in house for midline placement. After discussing case with Dr. Simmons we decided that the need to immediate midline placement was not warranted. Pt had received dose of antibiotics today at home prior to line falling out. Dr. Martinez was paged, pt was urging discharge and it was decided pt was to return to the ER for dose of IV antibiotics tmrw around 10-11am. Pt appears to be a compliant pt. Dr Martinez returned page, I spoke with him directly - he stated that they attempted to get a midline yesterday however a peripheral IV was placed instead, that is why she was scheduled Sunday for midline placement. He stated she was with [facility] and I could call to have them place a peripheral line to avoid another ER visit. However [facility] was notified and Mrs. Overton is not a patient of theirs. At this time we are having patient return for IV antibiotic/peripheral line placement in the ER tmrw and pt instructed to keep appointment Sunday for midline placement on Sunday. Pt agreed with plan and d/c in stable condition. Wounds were assessed prior to d/c there was no noted erythema or purulent drainage, clean/dry/intact bandages in place. Pt BP elevated, however pt refused any BP medication she states she will take her home medications and thinks it is elevated because she is aggravated from being here so long. Pt denies symptoms of EOD. Disposition Clinical Impression: Normal exam, Status post PICC central line placement Disposition: HOME SELF-CARE Condition: Good Instructions: Peripherally Inserted Central Catheters and Midline Catheters in... (DC) Additional Instructions: Please return to the emergency room as discussed, tomorrow for administration of IV antibiotics. . Is patient prescribed a controlled substance at d/c from ED?: No Referrals: Luisana Quintanilla MD [Primary Care Provider] - 1-2 days Time of Disposition: 16:36
[2018-06-29 17:16] VITALS: BP 211/86; PULSE 60; RESP 18; TEMP 97.8
== END 2018-06-29 17:15 | disposition home or self-care (01) ==
LOC: EC 13:15
DX: Z45.2 Encounter for adjustment and management of vascular access device (principal); I48.91 Unspecified atrial fibrillation; E78.5 Hyperlipidemia, unspecified; I10 Essential (primary) hypertension; Z85.3 Personal history of malignant neoplasm of breast; Z90.13 Acquired absence of bilateral breasts and nipples; Z86.14 Personal history of Methicillin resistant Staphylococcus aureus infection; Z95.818 Presence of other cardiac implants and grafts; Z87.891 Personal history of nicotine dependence; Z82.49 Family history of ischemic heart disease and other diseases of the circulatory system; Z79.01 Long term (current) use of anticoagulants; Z79.899 Other long term (current) drug therapy; Z53.29 Procedure and treatment not carried out because of patient's decision for other reasons
CPT/HCPCS: 99282

== ENCOUNTER 2018-06-30 12:34 | Emergency (ER) | payer MEDICARE ==
[2018-06-30] MEDS ORDERED: DAPTOmycin 500 MG in SODIUM CHLORIDE 0.9% 50 ML IVPB STA (12:49)
--- NOTE | 2018-06-30 14:08 | ED ---
Recheck HPI - General Chief Complaint: Recheck/Abnormal Lab/Rx Stated Complaint: IV Antibiotics Time Seen by Provider: 06/30/18 12:43 Source: patient Mode of arrival: ambulatory Limitations: no limitations - History of Present Illness Initial Comments: 77-year-old female with current MRSA infection who returns today for administration of IV antibiotics following failure of peripheral line for outpatient line for antibiotic use. Pt recently diagnosed with MRSA infection at surgical site from masectomy in 2017, followed Dr. Martinez. Pt denies any symptoms today stating she simply needs her antibiotics. Patient denies any recent fever, chills, shortness of breath, chest pain, back pain, abdominal pain , nausea or vomiting, numbness or tingling, dysuria or hematuria, constipation or diarrhea, headaches or visual changes, or any other complaints. - Related Data Home Medications Medication Instructions Recorded Confirmed Apixaban [Eliquis] 5 mg PO BID 11/24/16 06/28/18 Escitalopram [Lexapro] 10 mg PO QAM 01/12/17 06/28/18 Ferrous Sulfate [Iron (65 MG 325 mg PO DAILY 12/14/17 06/28/18 Elemental)] Metoprolol Succinate (ER) [Toprol 100 mg PO QAM 12/14/17 06/28/18 XL] Atorvastatin Calcium [Lipitor] 10 mg PO HS 03/19/18 06/28/18 Fluticasone Nasal [place] [Flonase 1 spray EA NOSTRIL DAILY PRN 03/19/18 06/28/18 Nasal [place]] Furosemide [Lasix] 20 mg PO DAILY 03/19/18 06/28/18 Losartan [Cozaar] 100 mg PO QAM 05/20/18 06/28/18 Fluconazole [Diflucan] 100 mg PO DAILY 05/24/18 06/28/18 Nystatin [Nystop] 1 applic TOPICAL TID 05/24/18 06/28/18 Previous Rx's Medication Instructions Recorded Melatonin 10 mg PO HS tablet 03/25/18 NIFEdipine [Procardia] 10 mg PO TID #60 cap 03/25/18 HYDROcodone/APAP 7.5-325MG [[place] 2 tab PO Q4H PRN 3 Days #30 tab 05/29/18 7.5-325] DAPTOmycin [Daptomycin] 500 mg IV DAILY #14 vial 06/24/18 Allergies Allergy/AdvReac Type Severity Reaction Status Date / Time No Known Allergies Allergy Verified 06/30/18 12:42 Review of Systems ROS Statement: Those systems with pertinent positive or pertinent negative responses have been documented in the HPI. ROS Other: All systems not noted in ROS Statement are negative. Constitutional: Denies: fever, chills, night sweats ENT: Denies: ear pain Respiratory: Denies: cough, dyspnea, wheezes, hemoptysis, stridor Cardiovascular: Denies: chest pain, palpitations, dyspnea on exertion Gastrointestinal: Denies: abdominal pain, nausea, vomiting Genitourinary: Denies: urgency, dysuria, frequency, hematuria Musculoskeletal: Denies: back pain Skin: Denies: rash, lesions Neurological: Denies: headache, weakness, numbness, paresthesias, confusion Past Medical History Past Medical History: Atrial Fibrillation, Cancer, GERD/Reflux, Hyperlipidemia, Hypertension Additional Past Medical History / Comment(s): anemia,sepsis admitted to [facility] 2017,Hx Breast Cancer 09/22, 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 History of Any Multi-Drug Resistant Organisms: MRSA, Other MDRO Date of last positivie culture/infection: 06/21/18 MDRO Source:: MRSA CHEST Past Surgical History: Bowel Resection, Breast Surgery, Heart Catheterization, Orthopedic Surgery, Tubal Ligation Additional Past Surgical History / Comment(s): LEFT rotator cuff repair,. Bilateral mastectomy 09/22, had reconstruction sx w/tissue expanders. may 2018 had excision rt and lt reconstructred breast/chest wall deformities. bowel resection 10/2016, heart cath 12/13/17, tiff cataracts,lower dental implants. Past Anesthesia/Blood Transfusion Reactions: Previous Problems w/ Anesthesia, Postoperative Nausea & Vomiting (PONV) Additional Past Anesthesia/Blood Transfusion Reaction / Comment(s): PATIENT STATES HER TEETH IMPLANTS WERE DISLODGED DURING INTUBATION AND SHE SWALLOWED A TOOTH 2016. pt stated she has recieved blood transfusion in past. no reaction to it. Past Psychological History: No Psychological Hx Reported Smoking Status: Former smoker Past Alcohol Use History: None Reported Past Drug Use History: None Reported - Past Family History Mother Family Medical History: Myocardial Infarction ([place]) Additional Family Medical History / Comment(s): in her 80's Father Family Medical History: Myocardial Infarction ([place]) Additional Family Medical History / Comment(s): age 56 from [place] Brother(s) Family Medical History: Cancer General Exam - General Exam Comments Initial Comments: General: The patient is awake and alert, in no distress, and does not appear acutely ill. Eye: Pupils are equal, round and reactive to light, extra-ocular movements are intact. No nystagmus. There is normal conjunctiva bilaterally. No signs of icterus. Cardiovascular: There is a regular rate and rhythm. No murmur, rub or gallop is appreciated. Respiratory: Lungs are clear to auscultation, respirations are non-labored, breath sounds are equal. No wheezes, stridor, rales, or rhonchi.. Neurological: A&O x 3. CN II-XII intact, There are no obvious motor or sensory deficits. Coordination appears grossly intact. Speech is normal. Skin: Skin is warm and dry and no rashes or lesions are noted. Bandage over surgical site C/D/I Psychiatric: Cooperative, appropriate mood & affect, normal judgment. Limitations: no limitations Course Vital Signs 06/30/18 06/30/18 12:40 14:20 Temperature 97.9 F 97.5 F L Pulse Rate 57 L 68 Respiratory 18 20 Rate Blood Pressure 156/73 146/73 O2 Sat by Pulse 100 97 Oximetry Medical Decision Making - Medical Decision Making Pt received outpt dose of 500mg of daptomycin. Denies symptoms. Pt instructed to keep appointment for midline placement tmrw here at [facility]. Pt states that she will dose antibiotics at home following midline placement tomorrow. At this time I feel pt is stable for d/c with follow up and scheduled with PCP and midline placement. Disposition Clinical Impression: Receiving intravenous antibiotic treatment as outpatient Disposition: HOME SELF-CARE Condition: Good Additional Instructions: Please use home medication as discussed. Please follow-up Sunday for midline placement as previously scheduled, taking antibiotics immediately following the appointment, if you do not attend this appointment you need to present for IV antibiotics that day in the ED. Please return to emergency room if the symptoms increase or worsen or for any other concerns. Is patient prescribed a controlled substance at d/c from ED?: No Referrals: Luisana Quintanilla MD [Primary Care Provider] - 1-2 days Time of Disposition: 14:08
[2018-06-30 14:26] VITALS: BP 146/73; PULSE 68; RESP 20; TEMP 97.5
== END 2018-06-30 14:25 | disposition home or self-care (01) ==
LOC: EC 12:34
DX: T81.4XXA Infection following a procedure, initial encounter (principal); A49.02 Methicillin resistant Staphylococcus aureus infection, unspecified site; I48.91 Unspecified atrial fibrillation; E78.5 Hyperlipidemia, unspecified; I10 Essential (primary) hypertension; D64.9 Anemia, unspecified; Z87.891 Personal history of nicotine dependence; Z79.01 Long term (current) use of anticoagulants; Z79.899 Other long term (current) drug therapy; Z85.3 Personal history of malignant neoplasm of breast; Z90.13 Acquired absence of bilateral breasts and nipples
CPT/HCPCS: 99281; 96365; J0878

== ENCOUNTER 2018-07-01 13:18 | Day surgery (SDC) | payer MEDICARE ==
[2018-07-01 13:38] VITALS: TEMP 97.6
[2018-07-01 13:50] VITALS: BP 203/88; PULSE 54; RESP 18
== END 2018-07-01 14:15 | disposition home or self-care (01) ==
LOC: CATHCVL 13:18
PROVIDERS: ATTEND Radiology Diagnostic Radiology
DX: T81.4XXA Infection following a procedure, initial encounter (principal); B95.62 Methicillin resistant Staphylococcus aureus infection as the cause of diseases classified elsewhere; B95.2 Enterococcus as the cause of diseases classified elsewhere; N61.1 Abscess of the breast and nipple; R78.81 Bacteremia; N17.9 Acute kidney failure, unspecified; Z85.3 Personal history of malignant neoplasm of breast; Z90.13 Acquired absence of bilateral breasts and nipples
CPT/HCPCS: 36569; 76937; C1751

== ENCOUNTER → 2018-07-15 | Outpatient (CLI) | payer MEDICARE ==
[2018-07-15 14:40] VITALS: BP 179/80; PULSE 54; RESP 14; TEMP 96.2; BMI 32.1
--- NOTE | 2018-07-15 15:04 | P.GSHP ---
History of Present Illness H&P Date: 07/15/18 The patient is a 77-year-old white female who has a very extensive history with respect to a right breast malignancy. In approximately September 2016 she was noted to have an abnormal mammogram and underwent excisional biopsy of 2 areas of concern in the right breast. On the biopsy specimen which was sent to 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 She therefore after discussion with her family opted to undergo bilateral mastectomy with immediate reconstruction. This was also performed September 2016. She subsequently did well and was discharged from the hospital. Her pathology at that time on a sentinel node from the right breast did reveal an area of microinvasion and she was therefore classified as a pathologic [id number]. The patient approximately 2 weeks after discharge was noted to have a severe abdominal pain and was seen in [facility] where it was felt that she had developed sepsis secondary to infarcted small bowel; and she was sent to [facility] where emergency surgery and bowel resection was performed. Following discharge from there she was very weak and was in a halfway facility. She underwent rehabilitation but had multiple episodes of sepsis and medical problems including placement of a feeding tube to facilitate her nutrition. Throughout this time she had the expandable implants in place. She also was seen by Dr. Lazaro intermittently throughout this time where the implants were expanded. In approximately February he attempted to remove the expanders in place permanent implants. However at that procedure he felt that the skin was not expanding well and he took the implants out without doing any replacement. After the surgery with Dr. Lazaro she developed infection at the port site where the implants had been expanded. She subsequently developed sepsis and was hospitalized, she had an IV treatment for 6 weeks at home. Subsequently in May 2018 she was seen by Dr. Lazaro where he attempted to remove excess skin related to her prior mastectomies. Several days after that she again developed an infection. The patient was seen by Dr. Martinez approximately 1 week ago at this time she is off IV antibiotics and she has no evidence of infection. She has blood cultures which are negative as per the patient and her family. The patient is not having any fever or chills. The patient now is doing well. She has no evidence of infection. She has no fever or chills. She has no complaints. The patient did not have any chemo/ hormonal/radiation therapy. The patient states she did follow up with medical oncology in 2017. Family History: 1. brother: skin Hormonal History: menarche:14 : 5, 5 children, breast fed: none, age at first 17 menopause: 40's BCP: 10 years hormones: estrogen 10 years Past surgical history: 1. Bilateral mastectomy 2. Bilateral removal of breast implants 3. Bilateral revision of scars chest wall 4. Exploratory laparotomy small bowel resection 5. Tubal ligation Past Medical History: 1. decreased memory Social History: smoke: 1/2 PPD for 20 years, stopped 20 years ago Alcohol: Negative Drugs:negative - Constitutional Constitutional: Denies chills, Denies fever - EENT Eyes: denies blurred vision, denies pain Ears: deny: decreased hearing, tinnitus Ears, nose, mouth and throat: Denies headache, Denies sore throat - Breasts Breasts: bilateral: as per HPI - Cardiovascular Cardiovascular: Reports high blood pressure, Denies chest pain, Denies shortness of breath - Respiratory Respiratory: Denies cough, Denies 7 - Gastrointestinal Comment: Dissection small bowel secondary to ischemia, cause of ischemia unknown - Genitourinary (Female) Genitourinary: Denies dysuria, Denies hematuria - Menstruation Menstruation: Reports postmenopausal - Musculoskeletal Comment: arthritis in hands - Integumentary Integumentary: Reports pruritus - Neurological Neurological: Denies numbness, Denies weakness - Psychiatric Psychiatric: Reports depression - Endocrine Endocrine: Denies fatigue, Denies weight change - Hematologic/Lymphatic Comment: eliquis - Allergic/Immunologic Comment: none Past Medical History Past Medical History: Atrial Fibrillation, Cancer, GERD/Reflux, Hyperlipidemia, Hypertension Additional Past Medical History / Comment(s): anemia,sepsis admitted to [facility] 2017,Hx Breast Cancer 09/22, 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 History of Any Multi-Drug Resistant Organisms: MRSA, Other MDRO Date of last positivie culture/infection: 06/21/18 MDRO Source:: MRSA CHEST Past Surgical History: Bowel Resection, Breast Surgery, Heart Catheterization, Orthopedic Surgery, Tubal Ligation Additional Past Surgical History / Comment(s): LEFT rotator cuff repair,. Bilateral mastectomy 09/22, had reconstruction sx w/tissue expanders. may 2018 had excision rt and lt reconstructred breast/chest wall deformities. bowel resection 10/2016, heart cath 12/13/17, tiff cataracts,lower dental implants. Past Anesthesia/Blood Transfusion Reactions: Previous Problems w/ Anesthesia, Postoperative Nausea & Vomiting (PONV) Additional Past Anesthesia/Blood Transfusion Reaction / Comment(s): PATIENT STATES HER TEETH IMPLANTS WERE DISLODGED DURING INTUBATION AND SHE SWALLOWED A TOOTH 2016. pt stated she has recieved blood transfusion in past. no reaction to it. Past Psychological History: No Psychological Hx Reported Smoking Status: Former smoker Past Alcohol Use History: None Reported Past Drug Use History: None Reported - Past Family History Mother Family Medical History: Myocardial Infarction (PR) Additional Family Medical History / Comment(s): in her 80's Father Family Medical History: Myocardial Infarction (PR) Additional Family Medical History / Comment(s): age 56 from [place] Brother(s) Family Medical History: Cancer Medications and Allergies Home Medications Medication Instructions Recorded Confirmed Type Apixaban [Eliquis] 5 mg PO BID 11/24/16 07/01/18 History Escitalopram [Lexapro] 10 mg PO HS 01/12/17 07/01/18 History Ferrous Sulfate [Iron (65 MG 325 mg PO DAILY 12/14/17 07/01/18 History Elemental)] Metoprolol Succinate (ER) [Toprol 100 mg PO QAM 12/14/17 07/01/18 History XL] Atorvastatin Calcium [Lipitor] 10 mg PO HS 03/19/18 07/01/18 History Fluticasone Nasal [place] [Flonase 1 spray EA NOSTRIL DAILY PRN 03/19/18 07/01/18 History Nasal [place]] Furosemide [Lasix] 20 mg PO DAILY 03/19/18 07/01/18 History Melatonin 10 mg PO HS tablet 03/25/18 07/01/18 Rx NIFEdipine [Procardia] 10 mg PO TID #60 cap 03/25/18 07/01/18 Rx Losartan [Cozaar] 100 mg PO QAM 05/20/18 07/01/18 History HYDROcodone/APAP 7.5-325MG [[place] 2 tab PO Q4H PRN 3 Days #30 tab 05/29/1807/01 Rx 7.5-325] DAPTOmycin [Daptomycin] 500 mg IV DAILY #14 vial 06/24/18 07/01/18 Rx Allergies Allergy/AdvReac Type Severity Reaction Status Date / Time No Known Allergies Allergy Verified 07/15/18 14:27 Surgical - Exam BMI: 32.1 BP: 179/80 HR: 54 RR: 14 T: 96.2 O2: 98% - General obese - Eyes normal ocular movement - ENT no hearing loss, no congestion - Neck no no masses, no no bruits, no trachea midline, no no lymphadectomy, no no venous distension, no deviated trachea, no diffuse goiter, no limited ROM, no other - Respiratory normal respiratory effort, clear to auscultation - Cardiovascular Rhythm: regular Heart Sounds: normal: S1, S2 - Abdomen Abdomen: soft, non tender, no guarding, no rigid, no rebound - Integumentary Examination of the chest wall reveals no evidence of infection Right chest wall incision is clean and dry there is a 2.5 centimeter by 8 mm open area in the lateral aspect of the incision no evidence of recurrent cancer Left chest wall incision is clean and dry there is an 8 mm x 6 mm open area in the lateral aspect of the incision - Neurologic no disoriented, no combative - Musculoskeletal normal gait, normal posture - Psychiatric oriented to time, oriented to person, oriented to place, speech is normal, memory intact Incisions as noted above Assessment and Plan Assessment: Impression: 1. Patient status post bilateral mastectomy for multiple areas of invasive lobular carcinoma in the left breast the patient also had T1N0i+Mo breast cancer , The patient was seen by medical oncology as per the patient and not recommended to have any hormonal or chemotherapy 2. Patient status post treatment for multiple episodes of sepsis at this time no evidence of infection 3. Bilateral incisions with 2 areas which are granulating at this time in the right chest wall incision approximately 2.5 x 8 mm and in the left chest wall site 8 mm x 6 mm 4. Patient status post history of ischemic bowel requiring resection 5. Hypertension Plan: 1. At this time patient is doing well with no evidence of recurrent cancer of the breast 2. Follow-up with medical oncology 3. Follow-up here for wound healing of the right and left incision sites 4. Medical management of medical condition 5. follow up in 3 weeks 6. Conservative management of wounds 7. Wound care as per maddison Mejia and neosporin CC: Dr. Quintanilla
--- NOTE | 2018-07-15 15:07 | P.PN ---
Progress Note - Text Progress Note Date: 07/15/18 Procedure: Silver nitrate cauterization of area of granulation right and left chest wall incisions Indications: Patient is a 77-year-old white female status post bilateral mastectomy, bilateral implant removal, bilateral revision of incisions by plastic surgery after which she developed bilateral wound infections. At this time the patient was noted to have 2 open areas one in the right and one on the left with granulation tissue. That on the right is 2.5 cm x 8 mm and that on the left is 0 8 mm x 6 mm Surgeon: Seng Procedure: The area of concern in both the right and left chest wall was prepped using alcohol. That in the right chest wall was approximately 2.5 cm x 8 mm and then on the left chest wall was 8 mm x 6 mm. After both areas were prepped a silver nitrate stick was used to cauterize granulation tissue in the base of each. Sterile dressing was then applied. The patient tolerated the procedure in stable condition. The patient will follow-up in 3 weeks. cc: Dr. Quintanilla
== END ==
LOC: WWCWWP 14:07
PROVIDERS: ATTEND Surgery
DX: Z53.9 Procedure and treatment not carried out, unspecified reason (principal)

== ENCOUNTER → 2018-08-02 | Outpatient (CLI) | payer MEDICARE ==
[2018-08-02 13:23] VITALS: BP 154/87; PULSE 55; RESP 16; TEMP 97.4; BMI 32.1
--- NOTE | 2018-08-02 13:54 | P.GSHP ---
History of Present Illness H&P Date: 08/02/18 Chief Complaint: granulating wound right chest wall The patient is a 77-year-old white female who is status post bilateral mastectomy with immediate reconstruction in 2016. Several weeks after her initial surgery she developed acute abdominal pain and was noted to have ischemic/gangrenous bowel. This required multiple bowel operations and admission to [facility] where she was an inpatient for 6-7 months between in-hospital admission and rehabilitation. Secondary to this illness she did not have completion of her reconstruction and had the bilateral breast implants remain in place during this time. After she recovered from this illness she had an attempt at removal of the expandable implants with placement of permanent implants. However at the time it was noted that this was not possible and the implants were simply removed. She subsequently developed cellulitis of bilateral chest mendez and was treated with IV antibiotics. Following this it was determined that she would not have reconstruction but that she would have revision of the skin on the chest mendez secondary to the redundant tissue. This was performed in January 2018. Following this she again developed some colitis of the chest wall and was treated with IV antibiotics. She is doing well but comes in because she has a persistent area in the right chest wall incision the lateral aspect which is granulating. In the most lateral aspect there is an area which is approximately 2 cm x 4 mm and just medial to this an area which is 4 cm x 1 cm. These areas are granulating and it also appears that she has some fungal infection and proximity believed to be secondary to moisture in the area. Physical examination: Lungs: Clear Heart: Regular rate and rhythm Abdomen: Well-healed scar soft Left chest wall: Clean and dry with some small amount of open in the wound and the very lateral aspect but this appears to be healing well Right chest wall incision lateral aspect probable fungal infection superficially with 2 areas of open granulation tissue, the most lateral areas approximately 2 cm x 4 mm in the more medial areas 4 cm x 1 cm. Impression: 1. Bilateral mastectomy with delayed wound healing of the right chest wall incision 2. Questionable fungal infection right chest wall Plan: 1. Silver nitrate stick was used to cauterize the granulation tissue in the base of the wound 2. Sterile dressing applied 3. Limited mobility of the right shoulder would recommend physical therapy 4. Patient brings to our attention a abrasion on the left forearm dressing is changed at this site 6. Consider appointment at wound clinic depending on healing 7. Antifungal agent to right chest wall 8. follow up after trip Please note the area of the right chest which has granulation tissue was cauterized using silver nitrate stick. A sterile dressing was then applied. cc: Dr. 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 History of Any Multi-Drug Resistant Organisms: MRSA, Other MDRO Date of last positivie culture/infection: 06/21/18 MDRO Source:: MRSA CHEST Past Surgical History: Bowel Resection, Breast Surgery, Heart Catheterization, Orthopedic Surgery, Tubal Ligation Additional Past Surgical History / Comment(s): LEFT rotator cuff repair,. Bilateral mastectomy 09/22, had reconstruction sx w/tissue expanders. may 2018 had excision rt and lt reconstructred breast/chest wall deformities. bowel resection 10/2016, heart cath 12/13/17, tiff cataracts,lower dental implants. Past Anesthesia/Blood Transfusion Reactions: Previous Problems w/ Anesthesia, Postoperative Nausea & Vomiting (PONV) Additional Past Anesthesia/Blood Transfusion Reaction / Comment(s): PATIENT STATES HER TEETH IMPLANTS WERE DISLODGED DURING INTUBATION AND SHE SWALLOWED A TOOTH 2016. pt stated she has recieved blood transfusion in past. no reaction to it. Past Psychological History: No Psychological Hx Reported Additional Psychological History / Comment(s): pt lives alone in 2 story home that has 1 proch steps.has 1 pet cat and 1 dog, pt drives. currently has home care nurse since sx. daughter lives 6 miles from pt. Smoking Status: Former smoker Past Alcohol Use History: None Reported Additional Past Alcohol Use History / Comment(s): started smoking 1968 smoked 1/ 2 ppd until quiting 1984. Past Drug Use History: None Reported - Past Family History Mother Family Medical History: Myocardial Infarction (CT) Additional Family Medical History / Comment(s): in her 80's Father Family Medical History: Myocardial Infarction (CT) Additional Family Medical History / Comment(s): age 56 from [place] Brother(s) Family Medical History: Cancer Medications and Allergies Home Medications Medication Instructions Recorded Confirmed Type Apixaban [Eliquis] 5 mg PO BID 11/24/16 08/02/18 History Escitalopram [Lexapro] 10 mg PO HS 01/12/17 08/02/18 History Ferrous Sulfate [Iron (65 MG 10 mg PO QAM 12/14/17 08/02/18 History Elemental)] Metoprolol Succinate (ER) [Toprol 100 mg PO QAM 12/14/17 08/02/18 History XL] Atorvastatin Calcium [Lipitor] 10 mg PO HS 03/19/18 08/02/18 History Fluticasone Nasal [place] [Flonase 1 spray EA NOSTRIL DAILY PRN 03/19/18 08/02/18 History Nasal [place]] Furosemide [Lasix] 20 mg PO QAM 03/19/18 08/02/18 History Melatonin 10 mg PO HS tablet 03/25/18 08/02/18 Rx Losartan [Cozaar] 100 mg PO QAM 05/20/18 08/02/18 History Fluconazole [Diflucan] 100 mg PO QAM 08/02/18 08/02/18 History Allergies Allergy/AdvReac Type Severity Reaction Status Date / Time No Known Allergies Allergy Verified 08/02/18 13:08 Surgical - Exam Vital Signs Temp Pulse Resp BP Pulse Ox 97.4 F L 55 L 16 154/87 99 08/02/18 13:16 08/02/18 13:16 08/02/18 13:16 08/02/18 13:16 08/02/18 13:16
== END | disposition home or self-care (01) ==
LOC: WWCWWP 12:43
PROVIDERS: ATTEND Surgery
DX: Z53.9 Procedure and treatment not carried out, unspecified reason (principal)

== ENCOUNTER → 2018-08-22 | Outpatient (CLI) | payer MEDICARE ==
[2018-08-22 15:06] VITALS: BP 132/78; PULSE 90; TEMP 97; BMI 32.4
--- NOTE | 2018-08-22 15:25 | P.PN ---
Subjective Progress Note Date: 08/22/18 Principal diagnosis: Abscess under left arm Cat is a 77-year-old white female who is status post bilateral mastectomies with immediate reconstruction in 2016. Several weeks after her initial surgery she developed acute abdominal pain and was noted to have ischemic/gangrenous bowel. This required multiple bowel operations at admission to [facility] where she was an inpatient for 6-7 months between hospital admission and rehabilitation. Secondary to this illness she did not have completion of her reconstruction had bilateral breast implants removed main in place during this time. After she recovered from the ulnar she had an attempt at removal of the expandable implants with placement of permanent implants. However at the time it was noted this was not possible and the implants were simply removed. She subsequently developed cellulitis of bilateral chest mendez was treated with IV antibiotics. Following this it was determined that she would not have reconstruction but that she would have revision of the skin on the chest wall secondary to the redundant tissue. This was performed in January 2018. Following that she again developed some cellulitis of the chest wall was treated with IV antibiotics. She most recently was seen in the office where she was doing well but had some areas of granulation tissue and persistent drainage in the lateral aspect of the right chest wall incision. She was treated conservatively and presents today for examination. On today's examination the incisions from the bilateral chest wall revision are healed completely with no evidence of infection at the incision sites. However approximately 3 days ago she noted an area of increased swelling in the left axilla. She additionally had an area of swelling in the vagina vaginal area and the right vulva. The patient states the area on the vulva drain spontaneously. She was seen by her primary care doctor and started on oral antibiotics as well as an IM injection. The patient has not had any fevers. The patient states the area in the left axilla is tender. She is unsure as to anything that she may have been exposed to. Cultures were not obtained. Past Surgical History: 1. bilateral mastectomy 2. Bilateral removal of breast implants 3. Revision of mastectomy incision sites 4. Multiple abdominal operations related to ischemic bowel Past Medical History: atrial Fibrillation GERD Hyperlipidemia Hypertension History of ischemic bowel History of MRSA ROS: HEENT: Negative Lungs: Negative Heart: Atrial fibrillation GI: Ischemic bowel with bowel resections in the past : Negative Musculoskeletal: Arthritis Social History: smoke: none alcohol: none drugs: none Objective - Constitutional General appearance: Present: obese - EENT Eyes: Present: EOMI ENT: Present: hearing grossly normal - Neck Neck: Present: normal ROM - Respiratory Respiratory: bilateral: CTA - Cardiovascular Rhythm: regular Heart sounds: normal: S1, S2 - Gastrointestinal Gastrointestinal Comment(s): incision well healed General gastrointestinal: Present: normal bowel sounds, soft - Integumentary Integumentary Comment(s): Incision chest wall bilateral well healed with no evidence of infection no stitch abscesses at this time In the left axilla there is approximately a 4 x 3 cm area of increased firmness which is erythematous and tender, this appears to be consistent with an evolving abscess The patient additionally has in the right vulvar area of very small area approximately 8 mm in size of firmness which the patient states ruptured and drained bloody purulent discharge - Psychiatric Psychiatric: Present: A&O x's 3, appropriate affect Assessment and Plan Assessment: Impression: 1. Bilateral mastectomy with delayed wound healing of the right chest wall incision which is now resolved 2. Probable abscess left axilla which is evolving 3. Possible abscess right vulvar area 4. Atrial fibrillation/on eliquis 5. Hyperlipidemia 6. Hypertension 7. Questionable history of MRSA in the past Plan: 1. Patient has been instructed to use warm compresses over the areas of abscess 2. Oral antibiotics 3. We will obtain medical clearance in the case that we need to drain this in the operating room 4. The patient will need to stop her Elliquis for drainage if necessary CC: Dr. Quintanilla
--- NOTE | 2018-08-22 15:32 | P.PN ---
Progress Note - Text Progress Note Date: 08/22/18 I discussed with Cat the surgical treatment that may be necessary if incision and drainage of the left axillary area. She understands that if we do drain this that may be remained open and she may need to have home care for packing.
== END | disposition home or self-care (01) ==
LOC: WWCWWP 14:48
PROVIDERS: ATTEND Surgery
DX: Z53.9 Procedure and treatment not carried out, unspecified reason (principal)

== ENCOUNTER → 2018-09-06 | Outpatient (CLI) | payer MEDICARE ==
[2018-09-06 12:40] VITALS: BP 168/82; PULSE 67; RESP 20; TEMP 97.3; BMI 32.1
--- NOTE | 2018-09-06 12:58 | P.PN ---
Progress Note - Text Progress Note Date: 09/06/18 Cat is a 77-year-old white female who is status post bilateral mastectomy with immediate reconstruction in 2016. Several weeks after her initial surgery she developed an acute abdominal pain and developed ischemic/gangrenous bowel. This required multiple bowel operations at admission to [facility] where she was an inpatient for 6-7 months. The this was between and hospital admission and rehabilitation. Secondary to this illness she did not have completion of her reconstruction and had the bilateral breast implants remain in place during this time. After she recovered from this illness there was an attempt at removal of the it the expanders with placement of the implants. However at that time it was noted that this was not possible in the implants were simply removed. She subsequently developed cellulitis of bilateral chest mendez was treated with IV antibiotics. Following this it was determined that she would not have reconstruction but she would have revision of the skin on the chest wall secondary to redundant tissue. This was performed in January 2018. Following that she again developed some cellulitis of the chest wall was treated with IV antibiotics. At this time she is doing well and a persistent area of opening on the bilateral incisions has healed completely on both sides. When she came last time she had developed an area in the lateral aspect of the left chest wall consistent with an abscess. She was actually scheduled for incision and drainage in the operating room however she was given oral antibiotics and this area has largely resolved. At this time Cat has no complaints of fever or chills. The area of concern in the left chest wall has markedly decreased in size. She has no drainage from this site. She is completed her antibiotics which she took for [address] Quintanilla today who concurred that this is much improved. Physical examination Lungs: Clear Heart: Regular rate and rhythm Chest wall bilateral well-healed scars no evidence of any infection Superior to the left chest wall incision there is approximately a 3 x 4 mm area of induration with no drainage at this time nothing which would warrant interventional incision and drainage in the operating room Abdomen: Soft Impression: 1. Status post mastectomy right breast cancer 2. Healing area of abscess/cyst left chest wall 3. Patient has not seen medical oncology Plan: 1. Continued present therapy of left chest wall abscess/cyst 2. Primary with medical oncology 3. Follow-up here in 1 month CC: Dr. Quintanilla
== END ==
LOC: WWCWWP 11:56
PROVIDERS: ATTEND Surgery
DX: Z53.9 Procedure and treatment not carried out, unspecified reason (principal)

== ENCOUNTER → 2018-10-11 | Outpatient (CLI) | payer MEDICARE ==
[2018-10-11 15:58] VITALS: BP 182/82; PULSE 65; RESP 18; TEMP 97.3; BMI 32.1
--- NOTE | 2018-10-11 16:20 | P.PN ---
Arlette Shelton is a 77-year-old white female who is status post bilateral mastectomy with immediate reconstruction in 2015. Several weeks after her initial surgery she developed an acute abdominal pain and developed ischemic/gangrenous bowel. This required multiple bowel operations at admission to [facility] where she was an inpatient for 6-7 months. This was between and hospital admission and rehabilitation. Secondary to this illness she did not have completion of her reconstruction and had the bilateral breast implants remained in place during this time. After she recovered from this illness there was an attempt at removal of the expanders with placement of the implants. However at that time it was noted that this was not possible and the expanders were simply removed. She subsequently developed cellulitis of bilateral chest mendez which was treated with IV antibiotics. Following this it was determined that she would not have reconstruction but she would have revision of the skin on the chest wall secondary to redundant tissue. This was performed in January 2018. Following that she again developed some cellulitis of the chest wall which was treated with IV antibiotics. At this time she is doing well the bilateral incisions have healed completely on both sides. She than developed an area in the lateral aspect of the left chest wall consistent with an abscess. She was actually scheduled for incision and drainage in the operating room however she was given oral antibiotics and this area has resolved. At this time Cat has no complaints of fever or chills. She has no drainage from this site. Objective - Vital Signs Vital signs: Vital Signs Temp 97.3 F L 10/11/18 15:55 Pulse 65 10/11/18 15:55 Resp 18 10/11/18 15:55 BP 182/82 10/11/18 15:55 Pulse Ox 97 10/11/18 15:55 Intake & Output 10/10/18 10/11/18 10/11/18 18:59 06:59 18:59 Weight 92.986 kg - Constitutional General appearance: Present: obese - EENT Eyes: Present: EOMI ENT: Present: hearing grossly normal - Respiratory Respiratory: bilateral: CTA - Cardiovascular Rhythm: regular Heart sounds: normal: S1, S2 - Integumentary Integumentary Comment(s): Bilateral chest wall incisions clean and dry with no evidence of infection or recurrent cancer - Psychiatric Psychiatric: Present: A&O x's 3, appropriate affect, intact judgment & insight Assessment and Plan Assessment: Impression: 1. Patient status post bilateral mastectomies for a right breast cancer 2. Patient with no evidence of recurrent disease at this time she is following up with medical oncology 3. Patient did not have any radiation therapy Plan: 1. Continue surveillance follow-up, in 6 months time 2. Follow-up with medical oncology CC: [place]
== END ==
LOC: WWCWWP 15:21
PROVIDERS: ATTEND Surgery
DX: Z53.9 Procedure and treatment not carried out, unspecified reason (principal)

== ENCOUNTER → 2019-01-27 | Outpatient (CLI) | payer MEDICARE ==
--- NOTE | 2019-01-27 14:46 | XR ---
EXAMINATION TYPE: XR cervical spine comp DATE OF EXAM: 01/27/2019 CLINICAL HISTORY: pain COMPARISON: NONE TECHNIQUE: Frontal, lateral, oblique, swimmers, and open mouth view of the cervical spine are obtaine d. FINDINGS: The cervical spine is visualized in its entirety from C1 thru the top of T1 level. It is s atisfactory in alignment without evidence of acute fracture or dislocation. The pre-vertebral soft t issue appears within normal limits. Moderate degenerative disc space narrowing and spondylosis. The C 1-C2 articulation is unremarkable on the open mouth view. The oblique images are within normal limit s. IMPRESSION: No acute fracture or dislocation is seen in the cervical spine.ICD 10 NO FRACTURE, INITI AL EVALUATION
--- NOTE | 2019-01-27 14:47 | XR ---
EXAMINATION TYPE: XR wrist complete RT DATE OF EXAM: 01/27/2019 CLINICAL HISTORY: pain TECHNIQUE: Frontal, lateral and oblique images of the right wrist are obtained. Navicular view also obtained. COMPARISON: None. FINDINGS: There is no acute fracture/dislocation evident. The joint spaces appear within normal limits. The o verlying soft tissue appears unremarkable. IMPRESSION: There is no acute fracture or dislocation seen. ICD 10 NO FRACTURE, INITIAL EVALUATION
--- NOTE | 2019-01-27 14:50 | XR ---
EXAMINATION TYPE: XR shoulder complete RT DATE OF EXAM: 01/27/2019 CLINICAL HISTORY: pain TECHNIQUE: Three views of the right shoulder are obtained. COMPARISON: None FINDINGS: There is no acute fracture/dislocation evident. Focal calcification compatible calcific t endinopathy. The acromioclavicular and glenohumeral joint spaces appear within normal limits. The vi sualized ribs are intact and unremarkable. IMPRESSION: 1. There is no acute fracture or dislocation. ICD 10 NO FRACTURE, INITIAL EVALUATION
[2019-01-27 15:13] LABS: Basophils # (A) 0.1 k/uL (0-0.2); Basophils % (A) 1 %; Eosinophils # (A) 0.3 k/uL (0-0.7); Eosinophils % (A) 4 %; HCT 36.3 % (34.0-46.0); HGB 11.8 gm/dL (11.4-16.0); Lymphocytes # (A) 1.7 k/uL (1.0-4.8); Lymphocytes % (A) 25 %; MCH 29.9 pg (25.0-35.0); MCHC 32.6 g/dL (31.0-37.0); MCV 91.8 fL (80.0-100.0); Monocytes # (A) 0.4 k/uL (0-1.0); Monocytes % (A) 5 %; Neutrophils # (A) 4.3 k/uL (1.3-7.7); Neutrophils % (A) 63 %; Platelet Count 310 k/uL (150-450); RBC 3.95 m/uL (3.80-5.40); RDW 13.8 % (11.5-15.5); WBC 6.9 k/uL (3.8-10.6)
[2019-01-27 15:19] LABS: Albumin 4.7 g/dL (3.5-5.0); Calcium 10.2 mg/dL (8.4-10.2); Potassium 4.4 mmol/L (3.5-5.1); Total Bilirubin 0.6 mg/dL (0.2-1.3); Uric Acid 6.2 mg/dL (3.7-7.4)
[2019-01-27 15:35] LABS: T4, Free (Free Thyroxine) 1.06 ng/dL (0.78-2.19)
[2019-01-27 21:41] LABS: Hemoglobin A1C 5.4 % (4.0-6.0)
[2019-01-28 00:59] LABS: Vitamin D 25 Hydroxy 15.4 ng/mL (30.0-100.0)
== END | disposition home or self-care (01) ==
LOC: RADXRMAIN 13:58
PROVIDERS: ATTEND Family Medicine
DX: S40.011A Contusion of right shoulder, initial encounter (principal); S10.83XA Contusion of other specified part of neck, initial encounter; S60.211A Contusion of right wrist, initial encounter; N18.2 Chronic kidney disease, stage 2 (mild); I12.9 Hypertensive chronic kidney disease with stage 1 through stage 4 chronic kidney disease, or unspecified chronic kidney disease; R73.03 Prediabetes; E78.5 Hyperlipidemia, unspecified; M81.0 Age-related osteoporosis without current pathological fracture
CPT/HCPCS: 36415; 72050; 80053; 82306; 82607; 83036; 84439; 84443; 84550; 85025

== ENCOUNTER → 2019-05-13 | Outpatient (CLI) | payer MEDICARE ==
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
== END | disposition home or self-care (01) ==
LOC: RADXRMAIN 13:05
PROVIDERS: ATTEND Family Medicine
DX: M17.11 Unilateral primary osteoarthritis, right knee (principal); S80.01XS Contusion of right knee, sequela

== ENCOUNTER → 2019-05-29 | Outpatient (CLI) | payer MEDICARE ==
--- NOTE | 2019-05-29 11:35 | CT ---
EXAMINATION TYPE: CT abdomen pelvis w con DATE OF EXAM: 05/29/2019 HISTORY: Microscopic hematuria CT DLP: 1699.2mGycm Automated Exposure Control for Dose Reduction was Utilized. CONTRAST: CT scan of the abdomen and pelvis is performed without oral but with IV Contrast, patient injected wi th 100 mL of Isovue 300. COMPARISON: CT abdomen and pelvis December 15, 2016. FINDINGS: LUNG BASES: Heart size is mildly enlarged. Mitral valve calcifications redemonstrated. Right coronary artery calcification and/or stents again seen. Slightly elevated left hemidiaphragm on current study . LIVER/GB: Dependent small gallstones in gallbladder axial image 28 . PANCREAS: No significant abnormality is seen. SPLEEN: No significant abnormality is seen. ADRENALS: No significant abnormality is seen. KIDNEYS: There is 2 mm nonobstructing calculus lower pole right kidney coronal image 56. There are sy mmetric corticomedullary uptake and excretion without hydronephrosis seen bilaterally. There is 2.1 c m simple appearing cyst anteriorly upper pole of the left kidney series 7 image 20. BOWEL: Stomach is poorly distended and thus suboptimally evaluated. No suspicious small or large gely l dilatation. Surgical change small bowel loop anterior right upper to mid abdomen with sutures ident ified near axial image 33. Additional surgical changes or sutures left mid bowel loop near umbilicus coronal image 25. UTERUS/ADNEXA: Slightly retroverted uterus. Adjacent pelvic phleboliths. Both ovaries within normal l imits in size axial image 62. LYMPH NODES: No greater than 1cm abdominal or pelvic lymph nodes are appreciated. OSSEOUS STRUCTURES: Moderate to advanced disc space narrowing with vacuum disc phenomenon L5-S1 level . Facet arthropathy lower lumbar spine. OTHER: No significant additional abnormality is seen. IMPRESSION: There is 2 mm nonobstructing lower pole right renal calculus may be accounting for patien t's symptoms of microscopic hematuria appears new from prior CT 2017.
== END | disposition home or self-care (01) ==
LOC: RADCTMAIN 10:10
PROVIDERS: ATTEND Family Medicine
DX: N20.0 Calculus of kidney (principal); R31.29 Other microscopic hematuria
CPT/HCPCS: 82565; 84520; 74177; 36415; Q9967

== ENCOUNTER → 2019-07-11 | Outpatient (CLI) | payer MEDICARE ==
--- NOTE | 2019-07-11 15:32 | XR ---
EXAMINATION TYPE: XR abdomen 1V DATE OF EXAM: 07/11/2019 COMPARISON: 12/22/2016 INDICATION: Abdomen pain x1.5 months TECHNIQUE: Single view abdomen supine view FINDINGS: There is a normal bowel gas pattern. Fecal debris is within the colon Psoas margins are normal. No organomegaly is present. IMPRESSION: 1. Unremarkable Abdomen
== END ==
LOC: RADXRMAIN 12:14
PROVIDERS: ATTEND Family Medicine
DX: R10.9 Unspecified abdominal pain (principal)
CPT/HCPCS: 74018

== ENCOUNTER → 2019-07-30 | Outpatient (CLI) | payer MEDICARE ==
--- NOTE | 2019-07-31 08:28 | US ---
EXAMINATION TYPE: US transvaginal DATE OF EXAM: 07/30/2019 COMPARISON: CT 2019 CLINICAL HISTORY: R10.2 Pelvic pain. Dull pelvic pain x 2 months. . TECHNIQUE: Transvaginal (TV). Date of LMP: Unknown EXAM MEASUREMENTS: Uterus: 6.1 x 4.1 x 2.4 cm Endometrial Stripe: 0.37 cm Right Ovary: not seen Left Ovary: not seen 1. Uterus: Anteverted Hyperechoic areas with posterior shadowing seen throughout the uterus. Appea rs heterogeneous. 2. Endometrium: Hypoechoic area within upper endometrium, possible fluid measurin.8 x 1.2 x 0.2 cm. 3. Right Ovary: not seen 4. Left Ovary: not seen 5. Bilateral Adnexa: appear wnl 6. Posterior cul-de-sac: fluid seen IMPRESSION: 1. Uterine myometrial calcifications of uncertain etiology. 2. Focal fluid within the endometrium.
== END | disposition home or self-care (01) ==
LOC: RADUSWWP 15:33
PROVIDERS: ATTEND Family Medicine
DX: N85.8 Other specified noninflammatory disorders of uterus (principal)
CPT/HCPCS: 76830

== ENCOUNTER → 2019-10-21 | Outpatient (CLI) | payer MEDICARE ==
--- NOTE | 2019-10-21 12:07 | FL ---
EXAMINATION TYPE: FL barium enema DATE OF EXAM: 10/21/2019 CLINICAL HISTORY: R10.2 pevic and perinal pain TECHNIQUE: A single contrast barium enema study is performed. COMPARISON: None. FINDINGS: Machine Try Out Setter view of the abdomen shows overall non-obstructive bowel gas pattern.No evidence of a ny mass or polyp, obstructing or constricting lesion throughout the colon. A few scattered diverticul a are noted. Appendix was filled and appeared normal. The terminal ileum was refluxed and appears wi thin normal limits. IMPRESSION: No evidence for mass or inflammatory change. No colovaginal fistula identified.
== END | disposition home or self-care (01) ==
LOC: RADFLMAIN 09:14
PROVIDERS: ATTEND Family Medicine
DX: R10.2 Pelvic and perineal pain (principal)
CPT/HCPCS: 74270

== ENCOUNTER → 2019-12-01 | Day surgery (SDC) | payer MEDICARE ==
[2019-11-28 12:37] VITALS: BMI 33.7
[~2019-12-01] MED LIST changes: -ALTEPLASE 2 MG VIAL (CATHFLO) IV NR; -ALTEPLASE 2 MG VIAL (CATHFLO) IV ONE; -DAPTOmycin 500 MG in SODIUM CHLORIDE 0.9% 50 ML IVPB NR; -SODIUM CHLORIDE 0.9% 500 ML in EMPTY BAG 1 BAG IV PRN; +VANCOMYCIN 1,000 MG in SODIUM CHLORIDE 0.9% 250 ML IVPB ONE; +VANCOMYCIN 1,500 MG in SODIUM CHLORIDE 0.9% 250 ML IVPB STA
[2019-12-01 14:10] VITALS: BP 159/81; PULSE 60; RESP 18; TEMP 98.2
--- NOTE | 2019-12-01 15:24 | IR ---
EXAMINATION TYPE: IR cvc insert >=5 years DATE OF EXAM: 12/01/2019 COMPARISON: NONE CLINICAL HISTORY: Urinary tract infection Needs long-term intravenous access for antibiotics. PROCEDURE: Hand hygiene obtained with soap and water and alcohol-based hand rub. After informed consent, the skin overlying the left brachial vein was localized with ultrasound and n oted to be compressible and patent. An ultrasound image was obtained and submitted on the patient's chart. The overlying skin was prepped and draped and Lidocaine was used for local anesthesia. A ski n maicol was made with a scalpel. Access was gained to the vein under ultrasound guidance with a 21 ga uge needle and a 0.018 inch wire was advanced. Access site was dilated with Peel-Away sheath and cat heter tailored to the appropriate length and advanced such that the distal tip is at the cavoatrial j unction. Spot image was obtained verifying placement. Catheter was fixed to the skin and a sterile dressing was placed following hemostasis. Catheter was aspirated and flushed with saline. Patient w as discharged in stable condition without complication.Maximal barrier technique is utilized. Ultras ound image is documented on the chart. Ultrasound used with sterile technique. Fluoro time and fluoroscopic images submitted to document procedure: 31 intraoperative images documen t the procedure, 0.2 minutes fluoroscopy time IMPRESSION: STATUS POST ULTRASOUND AND FLUOROSCOPIC GUIDED PICC LINE PLACEMENT, READY FOR USE. THIS PROCEDURE WAS PERFORMED BY THE UNDERSIGNED.
== END ==
LOC: CATHCVL 13:49
PROVIDERS: ATTEND Radiology Diagnostic Radiology
DX: N39.0 Urinary tract infection, site not specified (principal); I12.9 Hypertensive chronic kidney disease with stage 1 through stage 4 chronic kidney disease, or unspecified chronic kidney disease; N18.3 Chronic kidney disease, stage 3 (moderate); K21.9 Gastro-esophageal reflux disease without esophagitis; E78.5 Hyperlipidemia, unspecified; E66.9 Obesity, unspecified; Z68.33 Body mass index [BMI] 33.0-33.9, adult; Z78.0 Asymptomatic menopausal state; Z87.891 Personal history of nicotine dependence; Z79.899 Other long term (current) drug therapy; Z79.01 Long term (current) use of anticoagulants; Z79.2 Long term (current) use of antibiotics
CPT/HCPCS: 36573; C1751; C1769; J3370

== ENCOUNTER → 2020-02-25 | Outpatient (CLI) | payer MEDICARE ==
--- NOTE | 2020-02-25 13:11 | XR ---
EXAMINATION TYPE: XR finger RT DATE OF EXAM: 02/25/2020 COMPARISON: NONE HISTORY: Falling injury yesterday with pain. TECHNIQUE: 3 views right thumb. FINDINGS: Osseous structures are demineralized. Metallic ring overlies the distal diaphysis of the fi rst middle phalanx. No acute fracture or dislocation is seen. Oyzp-vz-[id number] narrowing involving fi rst metacarpal phalangeal and interphalangeal joints. Mild to moderate narrowing and spurring base of first metacarpal. IMPRESSION: As above.
== END | disposition home or self-care (01) ==
LOC: RADXRMAIN 12:45
PROVIDERS: ATTEND Family Medicine
DX: M25.841 Other specified joint disorders, right hand (principal)

== ENCOUNTER → 2020-08-27 | Outpatient (CLI) | payer MEDICARE ==
--- NOTE | 2020-08-28 01:28 | CT ---
EXAMINATION TYPE: CT angio chest DATE OF EXAM: 08/27/2020 5:46 PM COMPARISON: 06/21/2018. HISTORY: Shortness of breath. CT DLP: 473 mGycm Automated exposure control for dose reduction was used. CONTRAST: CTA scan of the thorax is performed with IV Contrast, patient injected with 80ml mL of Isovue 300, pu lmonary embolism protocol. MIP images are created and reviewed. FINDINGS: LUNGS: There is mild bibasilar atelectasis. Otherwise the lungs are grossly clear, there is no concer mackenzie parenchymal mass or nodule identified. There is no pleural effusion or pneumothorax seen. The tracheobronchial tree is patent. MEDIASTINUM: There is satisfactory enhancement of the pulmonary artery and its branches, there is no CT evidence for pulmonary embolism. There are no greater than 1 cm hilar or mediastinal lymph nodes. No pericardial effusion is seen. There is moderate thoracic aorta and coronary atherosclerotic dis ease. OTHER: No additional significant abnormality is seen. No acute osseous abnormality. Chronic moderate compression deformity of T8 and T9. Multilevel moderate thoracic spondylosis. IMPRESSION: NO EVIDENCE OF ACUTE PULMONARY EMBOLUS OR OTHER CARDIOPULMONARY ABNORMALITY.
== END | disposition home or self-care (01) ==
LOC: RADCTMAIN 16:36
PROVIDERS: ATTEND Internal Medicine Hematology & Oncology
DX: R06.02 Shortness of breath (principal)
CPT/HCPCS: 82565; 84520; 71275; 36415; Q9967

== ENCOUNTER 2020-09-09 10:51 | Inpatient (IN) | payer MEDICARE ==
[2020-09-09] MEDS ORDERED: SODIUM CHLORIDE 0.9% 1,000 ML IV STA ×2 (11:14)
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
[2020-09-09 11:50] LABS: Anisocytosis Slight; Basophils # (A) 0.1 k/uL (0-0.2); Basophils % (A) 1 %; Eosinophils # (A) 0.1 k/uL (0-0.7); Eosinophils % (A) 0 %; HCT 24.3 % (34.0-46.0); HGB 8.1 gm/dL (11.4-16.0); Lymphocytes # (A) 1.4 k/uL (1.0-4.8); Lymphocytes % (A) 8 %; MCHC 33.5 g/dL (31.0-37.0); MCV 98.6 fL (80.0-100.0); Macrocytosis Slight; Mean Platelet Volume 8.4; Monocytes # (A) 0.9 k/uL (0-1.0); Monocytes % (A) 5 %; Neutrophils # (A) 15.2 k/uL (1.3-7.7); Neutrophils % (A) 85 %; Platelet Count 128 k/uL (150-450); Poikilocytosis Slight; RBC 2.46 m/uL (3.80-5.40)
[2020-09-09] MEDS ORDERED: ONDANSETRON 4 MG/2 ML VIAL IVP STA (12:04)
[2020-09-09 12:05] LABS: Albumin 4.1 g/dL (3.5-5.0); Calcium 9.4 mg/dL (8.4-10.2); Potassium 3.6 mmol/L (3.5-5.1); Total Bilirubin 0.5 mg/dL (0.2-1.3)
[2020-09-09 12:45] LABS: Appearance,Urine Cloudy (Clear); Bacteria,Urine Rare /hpf; Bilirubin,Urine Negative (Negative); Blood,Urine Small (Negative); Color,Urine Yellow; Glucose,Urine (UA) Negative (Negative); Hyaline Casts,Urine 16 /lpf (0-2); Ketones,Urine Negative (Negative); Leukocyte Esterase,Urine Large (Negative); Mucus,Urine Rare /hpf; Nitrite,Urine Negative (Negative); Protein,Urine Trace (Negative); RBC,Urine 12 /hpf (0-5); Specific Gravity,Urine 1.011 (1.001-1.035); Squamous Epithelial Cell,Urine 10 /hpf (0-4); Transitional Epi Cells,Urine <1 /hpf (0-1); Urobilinogen,Urine <2.0 mg/dL (<2.0); WBC,Urine >182 /hpf (0-5)
[2020-09-09] MEDS ORDERED: cefTRIAXone IN SWFI 1,000 MG/10 ML SYRINGE IVP STA (12:46)
[2020-09-09] MEDS ORDERED: NALOXONE 0.4 MG/ML 1 ML VIAL IV PRN (12:58)
[2020-09-09] MEDS ORDERED: ONDANSETRON 4 MG/2 ML VIAL IVP PRN (12:58)
[2020-09-09] MEDS ORDERED: ONDANSETRON 4 MG TAB PO PRN (13:50)
[2020-09-09] MEDS ORDERED: HYDROcodone/APAP 5-325MG 1 EACH TAB PO PRN (13:50)
[2020-09-09] MEDS: METOPROLOL SUCCINATE (ER) 100 MG TAB.ER.24H PO SCH (17:34)
[2020-09-09] MEDS: SODIUM CHLORIDE 0.9% 1,000 ML IV SCH ×2 (20:19→20:53)
[2020-09-09] MEDS ORDERED: ZOLPIDEM 5 MG TAB PO PRN (20:43)
[2020-09-09] MEDS: ATORVASTATIN 10 MG TAB PO SCH (20:54)
[2020-09-09] MEDS: MEMANTINE 10 MG TAB PO SCH (20:54)
[2020-09-09] MEDS ORDERED: APIXABAN 5 MG TAB PO SCH (21:00)
--- NOTE | 2020-09-09 23:58 | P.HPIM ---
History of Present Illness H&P Date: 09/09/20 Chief Complaint: Acute renal failure, sepsis with UTI, acute anemia, bladder cancer 79-year-old female one of Dr. Quintanilla's patient with past medical history of atrophy fibrillation, hypertension, hyperlipidemia, chronic kidney disease, breast cancer, ischemic bowel with bowel resection, recurrent UTI was diagnosed with bladder cancer has been treated by oncology with chemotherapy. Patient had her last chemotherapy 2 weeks ago she was sent to the emergency department today by her oncologist because of severe abnormal kidney function with creatinine of 3.6 with baseline around 1.0 was diagnosed with acute kidney failure, patient has been slightly bit dehydrated also has been having sign and symptom of UTI with mild hematuria or burning discomfort frequency and urgency. At the time was seen at the emergency department her UA was positive with many WBC clumps along with large leukocyte esterase and some RBC. Culture was done Covid testing came back negative, patient had severe leukocytosis with WBC of 18,000 hemoglobin of 8.1 slightly bit down compared to before mild thrombocytopenia. Also had mild hyponatremia at 133 with BUN of 24 and creatinine of 3.18. Patient was started on hydration Rocephin 1 g was giving patient was admitted to the hospital will be seen oncology and urology. Review of Systems CONSTITUTIONAL: Well-developed no acute respiratory distress. EYES: No icterus sclerae, no conjunctivitis. EARS, NOSE, MOUTH, THROAT, and FACE: No sore throat, lymphadenopathy, carotid bruits or deformity. RESPIRATORY: No SOB cough or wheezes. CARDIOVASCULAR: No CP, Palpitation, PND, Orthopnea, or angina. History of A. fib. GASTROINTESTINAL: Abdominal discomfort with nausea no vomiting slight lower abdominal discomfort with frequency and urgency. No diarrhea GENITOURINARY: Bladder cancer with frequency emergency hematuria and recurrent UTI. Also patient has acute kidney failure at this point. INTEGUMENT/BREAST: Negative for any muscular injury with mild osteoarthritis.. HEMATOLOGIC/LYMPHATIC: Negative for bleed or purpura. Recurrent anemia. MUSCULOSKELTAL: Negative for Myalgia or arthralgia. NEURLOGICAL: No LOC, Sz or syncope, blurred vision dizziness or abnormality.. BEHAVIORAL/PSYCH: Negative. ENDOCRINE: Negative. 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 Mild memory changes. upper denture, lower dental implants. perineal/pelvic pain, freq uti, currently resistant to outpatient AB Rx. History of Any Multi-Drug Resistant Organisms: MRSA, Other MDRO Date of last positivie culture/infection: 06/21/18 MDRO Source:: MRSA CHEST Past Surgical History: Bowel Resection, Breast Surgery, Heart Catheterization, Orthopedic Surgery, Tubal Ligation Additional Past Surgical History / Comment(s): R rotator cuff repair. Bilateral mastectomy 09/22, had failed reconstruction. May 2018 had excision rt and lt reconstructred breast/chest wall deformities. bowel resection 10/2016, heart cath 12/13/17, tiff cataracts, lower dental implants. Past Anesthesia/Blood Transfusion Reactions: Previous Problems w/ Anesthesia, Postoperative Nausea & Vomiting (PONV) Additional Past Anesthesia/Blood Transfusion Reaction / Comment(s): PATIENT STATES HER TEETH IMPLANTS WERE DISLODGED DURING INTUBATION AND SHE SWALLOWED A TOOTH 2016. pt stated she has recieved blood transfusion in past, no reaction to it. Past Psychological History: No Psychological Hx Reported Smoking Status: Former smoker Past Alcohol Use History: None Reported Past Drug Use History: None Reported - Past Family History Mother Family Medical History: Myocardial Infarction ([place]) Additional Family Medical History / Comment(s): in her 80's Father Family Medical History: Myocardial Infarction (SD) Additional Family Medical History / Comment(s): age 56 from [place] Brother(s) Family Medical History: Cancer Medications and Allergies Home Medications Medication Instructions Recorded Confirmed Type Apixaban [Eliquis] 5 mg PO BID 11/24/16 09/09/20 History Escitalopram [Lexapro] 10 mg PO DAILY 01/12/17 09/09/20 History Metoprolol Succinate (ER) [Toprol 100 mg PO QAM 12/14/17 09/09/20 History XL] Atorvastatin Calcium [Lipitor] 10 mg PO HS 03/19/18 09/09/20 History Furosemide [Lasix] 20 mg PO QAM 03/19/18 09/09/20 History Memantine [Namenda] 10 mg PO BID 11/28/19 09/09/20 History rOPINIRole HCL [Requip] 0.5 mg PO BID 11/28/19 09/09/20 History Anastrozole 1 mg PO DAILY 09/09/20 09/09/20 History HYDROcodone/APAP 5-325MG [[place] 1 tab PO QID PRN 09/09/20 09/09/20 History 5-325] Losartan Potassium 100 mg PO DAILY 09/09/20 09/09/20 History Ondansetron [Zofran] 4 mg PO TID PRN 09/09/20 09/09/20 History Allergies Allergy/AdvReac Type Severity Reaction Status Date / Time codeine AdvReac Reaction Verified 09/09/20 11:38 to Tylenol #3 Physical Exam Vitals: Vital Signs Temp Pulse Resp BP Pulse Ox 09/09/20 17:00 97.4 F L 68 16 124/57 97 09/09/20 15:11 60 16 127/65 95 09/09/20 13:58 98.3 F 55 L 16 148/78 95 09/09/20 12:21 58 L 16 154/93 99 09/09/20 10:59 98 F 58 L 18 154/71 100 Intake and Output 09/09/20 09/09/20 09/09/20 06:59 14:59 22:59 Other: Weight 95.708 kg General Appearance: Alert, cooperative, no distress, appears stated age. Neck HEENT: Supple, no lymphadenopathy, no thyroid enlargement, no carotid bruits. Lungs: Clear to auscultation without crackles or wheezes no rhonchi, no deformity. Chest Wall: Decrease expansion with deep inspiration no tenderness and no deformity was found on exam, no costochondral pain or discomfort. Heart: Irregular rate and rhythm, S1, S2 normal, no murmur, rub or gallop. Back: Symmetric, no curvature, ROM normal, no CVA tenderness. Abdomen: Soft, non-tender, bowel sounds active all four quadrants, no masses, no organomegaly. Significant discomfort lower abdominal region area. Extremities: Extremities normal, atraumatic, no cyanosis or edema. Pulses: 2+ and symmetric. Skin: Skin color, texture, tugor normal, no rashes or lesions. Neurologic: Alert oriented x3 cranial nerves II through XII intact, no motor deficit, no abnormal balance or gait. Results CBC & Chem 7: 09/09/20 11:33 09/09/20 11:33 Labs: Abnormal Lab Results - Last 24 Hours (Table) 09/09/20 09/09/20 09/09/20 Range/Units 11:33 11:33 11:33 WBC 18.0 H (3.8-10.6) k/uL RBC 2.46 L (3.80-5.40) m/uL Hgb 8.1 L (11.4-16.0) gm/dL Hct 24.3 L (34.0-46.0) % RDW 18.0 H (11.5-15.5) % Plt Count 128 L (150-450) k/uL Neutrophils # 15.2 H (1.3-7.7) k/uL Sodium 133 L (137-145) mmol/L BUN 24 H (7-17) mg/dL Creatinine 3.18 H (0.52-1.04) mg/dL Glucose 118 H (74-99) mg/dL Urine Appearance Cloudy H (Clear) Urine Protein Trace H (Negative) Urine Blood Small H (Negative) Ur Leukocyte Esterase Large H (Negative) Urine RBC 12 H (0-5) /hpf Urine WBC >182 H (0-5) /hpf Urine WBC Clumps Many H (None) /hpf Ur Squamous Epith Cells 10 H (0-4) /hpf Urine Bacteria Rare H (None) /hpf Hyaline Casts 16 H (0-2) /lpf Urine Mucus Rare H (None) /hpf Thrombosis Risk Factor Assmnt - DVT/VTE Prophylaxis DVT/VTE Prophylaxis: Pharmacologic Prophylaxis ordered, Mechanical Prophylaxis ordered Assessment and Plan Assessment: 1 acute kidney failure: Secondary to severe dehydration, effect of chemotherapy, possible UTI and possible obstructive uropathy, patient will be admitted to the hospital continue hydration consult oncology also consult urology at this point. 2 sepsis and UTI: Her UA was very positive with significant leukocytosis and thrombocytopenia lactic acid was not done patient was giving 1 g of Rocephin we'll continue current management of the cultures back. 3. Diagnosis of bladder cancer: Patient is seen oncology and has been on chemotherapy. 4 acute anemia: With hemoglobin is down to 8.1 no blood transfusion require yet continue iron supplement and infusion if needed if hemoglobin dropped below 7 transfusion be done or if patient becomes symptomatic transfusion Be done if hemoglobin is below 8. 5 A. fib with RVR: Patient has been on Eliquis along with metoprolol pulse rates under control currently. 6 hyperlipidemia: Remain on atorvastatin 10 mg a day. 7 depression: Patient has been on citalopram 10 mg a day. 8 restless leg syndrome: Remain on Requip 0.5 mg twice a day. 9 history of breast cancer: Patient still on Arimidex daily resume medication. 10 mild memory loss: Patient is not on any medication currently. DVT prophylaxis: Remain on anticoagulation. GI prophylaxis: Patient will be on Pepcid 20 mg daily. CODE STATUS: Full code. Admit patient to inpatient status for more than 2 night stay.
[2020-09-10] MEDS: SODIUM CHLORIDE 0.9% 1,000 ML IV SCH ×3 (04:47→20:33)
[2020-09-10 06:26] LABS: Anisocytosis Slight; Basophils # (A) 0.1 k/uL (0-0.2); Basophils % (A) 1 %; Eosinophils # (A) 0.1 k/uL (0-0.7); Eosinophils % (A) 1 %; HCT 20.1 % (34.0-46.0); Hypochromasia Slight; Lymphocytes # (A) 1.5 k/uL (1.0-4.8); Lymphocytes % (A) 11 %; MCH 32.3 pg (25.0-35.0); MCHC 32.1 g/dL (31.0-37.0); MCV 100.9 fL (80.0-100.0); Macrocytosis Slight; Mean Platelet Volume 7.9; Monocytes # (A) 0.6 k/uL (0-1.0); Monocytes % (A) 5 %; Neutrophils # (A) 11.1 k/uL (1.3-7.7); Neutrophils % (A) 81 %; Platelet Count 127 k/uL (150-450); WBC 13.7 k/uL (3.8-10.6)
[2020-09-10 06:46] LABS: HGB 6.5 gm/dL (11.4-16.0)
[2020-09-10] MEDS: METOPROLOL SUCCINATE (ER) 100 MG TAB.ER.24H PO SCH (07:15)
[2020-09-10] MEDS: FAMOTIDINE 20 MG TAB PO SCH (07:15)
[2020-09-10] MEDS: ESCITALOPRAM 10 MG TAB PO SCH (07:15)
[2020-09-10] MEDS: MEMANTINE 10 MG TAB PO SCH ×2 (07:16→20:31)
[2020-09-10] MEDS: ANASTROZOLE 1 MG TAB PO SCH (07:16)
[2020-09-10] MEDS: SODIUM FERRIC GLUCONAT-SUCROSE 125 MG in SODIUM CHLORIDE 0.9% 100 ML IVPB SCH (08:51)
[2020-09-10 09:30] LABS: African American GFR (CKD) 26.7 (60.0-200.0); Albumin 3.5 g/dL (3.80-4.90); Albumin/Globulin Ratio 1.75 (1.60-3.17); Anion Gap 9.9 mmol/L (4.00-12.00); BUN/Creat Ratio 10.5 Ratio (12.00-20.00); Calcium 8.5 mg/dL (8.7-10.3); Carbon Dioxide 22.1 mmol/L (21.6-31.8); Potassium 3.7 mmol/L (3.5-5.5); Total Bilirubin 0.2 mg/dL (0.2-1.2); Total Protein 5.5 g/dL (6.2-8.2)
--- NOTE | 2020-09-10 10:07 | P.NPCON ---
History of Present Illness - Reason for Consult acute renal failure - History of Present Illness Reason for consultation: Acute kidney injury History of present illness: Patient is a 79-year-old female seen in renal consultation for acute kidney injury. Patient's creatinine on admission was 3.6 and is down to 2.0 this morning. Her baseline creatinine is near 1. Patient presented to the hospital due to abnormal labs. Patient states she has history of bladder cancer and was last treated with chemotherapy about 2 weeks ago. She was noted to be in renal failure and was sent to the hospital. Patient states her appetite has been fair but from the ER notes it appears that she has not been eating and drinking much and thinks urine. She is currently maintained on IV fluids. Additionally and her hemoglobin is also noted to be low at 6.5 as of this morning. She denies any melena or hematochezia. No hematuria. No vomiting or diarrhea. No fever or chills. Blood pressure stable. She denies regular use of nonsteroidals. She was on valsartan as well as Lasix at home which are both currently held. She was also on eliquis which is also held. She denies chest pain or shortness of breath. No edema. Denies family history of renal disease. Vital signs are stable. General: The patient appeared well nourished and normally developed. HEENT: Head exam is unremarkable. Neck is without jugular venous distension. LUNGS: Breath sounds decreased. HEART: Rate and Rhythm are regular. ABDOMEN: Soft, nontender. EXTREMITITES: No edema. 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 Mild memory changes. upper denture, lower dental implants. perineal/pelvic pain, freq uti, currently resistant to outpatient AB Rx. History of Any Multi-Drug Resistant Organisms: MRSA, Other MDRO Date of last positivie culture/infection: 06/21/18 MDRO Source:: MRSA CHEST Past Surgical History: Bowel Resection, Breast Surgery, Heart Catheterization, Orthopedic Surgery, Tubal Ligation Additional Past Surgical History / Comment(s): R rotator cuff repair. Bilateral mastectomy 09/22, had failed reconstruction. May 2018 had excision rt and lt reconstructred breast/chest wall deformities. bowel resection 10/2016, heart cath 12/13/17, tiff cataracts, lower dental implants. Past Anesthesia/Blood Transfusion Reactions: Previous Problems w/ Anesthesia, Postoperative Nausea & Vomiting (PONV) Additional Past Anesthesia/Blood Transfusion Reaction / Comment(s): PATIENT STATES HER TEETH IMPLANTS WERE DISLODGED DURING INTUBATION AND SHE SWALLOWED A TOOTH 2016. pt stated she has recieved blood transfusion in past, no reaction to it. Past Psychological History: No Psychological Hx Reported Smoking Status: Former smoker Past Alcohol Use History: None Reported Past Drug Use History: None Reported - Past Family History Mother Family Medical History: Myocardial Infarction ([place]) Additional Family Medical History / Comment(s): in her 80's Father Family Medical History: Myocardial Infarction ([place]) Additional Family Medical History / Comment(s): age 56 from [place] Brother(s) Family Medical History: Cancer Medications and Allergies Home Medications Medication Instructions Recorded Confirmed Type Apixaban [Eliquis] 5 mg PO BID 11/24/16 09/09/20 History Escitalopram [Lexapro] 10 mg PO DAILY 01/12/17 09/09/20 History Metoprolol Succinate (ER) [Toprol 100 mg PO QAM 12/14/17 09/09/20 History XL] Atorvastatin Calcium [Lipitor] 10 mg PO HS 03/19/18 09/09/20 History Furosemide [Lasix] 20 mg PO QAM 03/19/18 09/09/20 History Memantine [Namenda] 10 mg PO BID 11/28/19 09/09/20 History rOPINIRole HCL [Requip] 0.5 mg PO BID 11/28/19 09/09/20 History Anastrozole 1 mg PO DAILY 09/09/20 09/09/20 History HYDROcodone/APAP 5-325MG [[place] 1 tab PO QID PRN 09/09/20 09/09/20 History 5-325] Losartan Potassium 100 mg PO DAILY 09/09/20 09/09/20 History Ondansetron [Zofran] 4 mg PO TID PRN 09/09/20 09/09/20 History Allergies Allergy/AdvReac Type Severity Reaction Status Date / Time codeine AdvReac Reaction Verified 09/09/20 11:38 to Tylenol #3 Physical Exam Vitals: Vital Signs Temp Pulse Pulse Resp BP BP Pulse Ox 09/10/20 07:00 71 18 09/10/20 02:35 97.8 F 89 18 119/57 98 09/10/20 02:15 18 09/09/20 20:57 72 18 156/72 96 09/09/20 20:00 97.9 F 71 16 137/63 93 L 09/09/20 18:48 97.6 F 75 16 133/86 95 09/09/20 17:00 97.4 F L 68 16 124/57 97 09/09/20 15:11 60 16 127/65 95 09/09/20 13:58 98.3 F 55 L 16 148/78 95 09/09/20 12:21 58 L 16 154/93 99 09/09/20 10:59 98 F 58 L 18 154/71 100 Intake and Output 09/09/20 09/10/20 09/10/20 22:59 06:59 14:59 Other: Voiding Method Toilet Toilet Results - Lab Results Most recent lab results Calcium 8.5 mg/dL (8.7-10.3) L 09/10/20 05:32 09/10/20 05:32 09/10/20 05:32 Assessment and Plan Plan: Assessment: 1. Acute kidney injury mostly prerenal secondary to hypovolemia improving with IV hydration. Creatinine was 3.6 as of yesterday and is down to 2.0 today. Baseline creatinine near 1. Urinalysis suggestive of UTI. 2. Acute GI bleed. Hemoglobin 6.5 this morning. GI consulted. 3. Hypovolemic hyponatremia. 4. Benign hypertension. Controlled. 5. UTI. Urine culture pending. Plan: Decrease normal saline to 75 mL an hour. Hold diuretics and losartan. Scheduled to receive 2 units of blood today. Continue to monitor renal function and urine output. Follow-up cultures. Thank you for the consultation. I will continue to follow the patient with you during her hospital stay.
--- NOTE | 2020-09-10 13:45 | P.PN ---
Subjective Progress Note Date: 09/10/20 HISTORY OF PRESENT ILLNESS 79-year-old female one of Dr. Quintanilla's patient with past medical history of atrophy fibrillation, hypertension, hyperlipidemia, chronic kidney disease, [place] ast cancer, ischemic bowel with bowel resection, recurrent UTI was diagnosed with bladder cancer has been treated by oncology with chemotherapy. Patient had her last chemotherapy 2 weeks ago she was sent to the emergency department today by her oncologist because of severe abnormal kidney function with creatinine of 3.6 with baseline around 1.0 was diagnosed with acute kidney failure, patient has been slightly bit dehydrated also has been having sign and symptom of UTI with mild hematuria or burning discomfort frequency and urgency. At the time was seen at the emergency department her UA was positive with many WBC clumps along with large leukocyte esterase and some RBC. Culture was done Covid testing came back negative, patient had severe leukocytosis with WBC of 18,000 hemoglobin of 8.1 slightly bit down compared to before mild thrombocytopenia. Also had mild hyponatremia at 133 with BUN of 24 and creatinine of 3.18. Patient was started on hydration Rocephin 1 g was giving patient was admitted to the hospital will be seen oncology and urology. 09/10: Patient is seen today in the emergency center, waiting for Med[facility] bed. Hemogl patient has been seen by nephrology and decreased IV fluids to 75 mL per hour, diuretics and losartan are on hold. Hemoglobin today is at 6.5 and patient is ordered for 2 units packed RBCs. White count is at 13.7, platelet count 127. Creatinine is down to 2.0 with BUN of 21. Potassium 3.7. Urine culture is in progress. She denies abdominal pain. No blood in her urine. Consults are in place with oncology and add a consult for urology. REVIEW OF SYSTEMS CONSTITUTIONAL: Well-developed no acute respiratory distress. Denies fever. Denies chills. EYES: No icterus sclerae, no conjunctivitis. EARS, NOSE, MOUTH, THROAT, and FACE: No sore throat, lymphadenopathy, carotid bruits or deformity. RESPIRATORY: No SOB cough or wheezes. CARDIOVASCULAR: No CP, Palpitation, PND, Orthopnea, or angina. History of A. fib. GASTROINTESTINAL: Abdominal discomfort with nausea no vomiting slight lower abdominal discomfort with frequency and urgency. No diarrhea GENITOURINARY: Bladder cancer with frequency emergency hematuria and recurrent UTI. Also patient has acute kidney failure at this point. INTEGUMENT/BREAST: Negative for any muscular injury with mild osteoarthritis.. HEMATOLOGIC/LYMPHATIC: Negative for bleed or purpura. Recurrent anemia. MUSCULOSKELTAL: Negative for Myalgia or arthralgia. NEURLOGICAL: No LOC, Sz or syncope, blurred vision dizziness or abnormality.. BEHAVIORAL/PSYCH: Negative. ENDOCRINE: Negative. PHYSICAL EXAMINATION General Appearance: Alert, cooperative, no distress, appears stated age. Neck HEENT: Supple, no lymphadenopathy, no thyroid enlargement, no carotid bruits. Lungs: Clear to auscultation without crackles or wheezes no rhonchi, no deformity. Chest Wall: Decrease expansion with deep inspiration no tenderness and no deformity was found on exam, no costochondral pain or discomfort. Heart: Irregular rate and rhythm, S1, S2 normal, no murmur, rub or gallop. Back: Symmetric, no curvature, ROM normal, no CVA tenderness. Abdomen: Soft, non-tender, bowel sounds active all four quadrants, no masses, no organomegaly. Significant discomfort lower abdominal region area. Extremities: Extremities normal, atraumatic, no cyanosis or edema. Pulses: 2+ and symmetric. Skin: Skin color, texture, tugor normal, no rashes or lesions. Neurologic: Alert oriented x3 cranial nerves II through XII intact, no motor deficit, no abnormal balance or gait. ASSESSMENT AND PLAN 1 acute kidney failure secondary to dehydration, hypovolemia. IV fluids decreased to 75 mL per hour. Continue to hold diuretics and losartan. Consult for urology for bladder cancer with possible obstructive uropathy. 2 sepsis and UTI: Her UA was very positive with significant leukocytosis and thrombocytopenia lactic acid was not done patient was giving 1 g of Rocephin we'll continue current management of the cultures back. Urine culture and blood culture in progress. 3. Diagnosis of bladder cancer: Patient is seen oncology and has been on chemotherapy. 4 acute anemia possibly related to chemotherapy and cancer. Patient be trans fused 2 units packed RBCs. Recheck hemoglobin in the morning. Monitor for active bleeding. 5 paroxysmal atrial fibrillation. Eliquis is on hold. Continue metoprolol. 6 hyperlipidemia: Remain on atorvastatin 10 mg a day. 7 depression: Patient has been on citalopram 10 mg a day. 8 restless leg syndrome: Remain on Requip 0.5 mg twice a day. 9 history of breast cancer: Patient still on Arimidex daily resume medication. 10 mild memory loss: Patient is not on any medication currently. DVT prophylaxis: Remain on anticoagulation. GI prophylaxis: Patient will be on Pepcid 20 mg daily. CODE STATUS: Full code. DISCHARGE PLAN Most likely return home with homecare. To be determined. Impression and plan of care have been directed as dictated by the signing physi cian. Mayi Lindsay nurse practitioner acting as scribe for signing physician. Objective - Vital Signs Vital signs: Vital Signs Temp 97.8 F 09/10/20 02:35 Pulse 71 09/10/20 07:00 Resp 18 09/10/20 07:00 BP 119/57 09/10/20 02:35 Pulse Ox 98 09/10/20 02:35 Intake & Output 09/09/20 09/10/20 09/10/20 18:59 06:59 18:59 Weight 95.708 kg Other: Voiding Method Toilet Toilet - Labs CBC & Chem 7: 09/10/20 05:32 09/10/20 05:32 Labs: Abnormal Lab Results - Last 24 Hours (Table) 09/09/20 09/09/20 09/09/20 Range/Units 11:33 11:33 11:33 WBC 18.0 H (3.8-10.6) k/uL RBC 2.46 L (3.80-5.40) m/uL Hgb 8.1 L (11.4-16.0) gm/dL Hct 24.3 L (34.0-46.0) % MCV (80.0-100.0) fL RDW 18.0 H (11.5-15.5) % Plt Count 128 L (150-450) k/uL Neutrophils # 15.2 H (1.3-7.7) k/uL Sodium 133 L (137-145) mmol/L Ch[place] (96-109) mmol/L BUN 24 H (7-17) mg/dL Creatinine 3.18 H (0.52-1.04) mg/dL Est GFR (CKD-EPI)AfAm (60.0-200.0) Est GFR (CKD-EPI)NonAf (60.0-200.0) BUN/Creatinine Ratio (12.00-20.00) Ratio Glucose 118 H (74-99) mg/dL Calcium (8.7-10.3) mg/dL Total Protein (6.2-8.2) g/dL Albumin (3.80-4.90) g/dL Urine Appearance Cloudy H (Clear) Urine Protein Trace H (Negative) Urine Blood Small H (Negative) Ur Leukocyte Esterase Large H (Negative) Urine RBC 12 H (0-5) /hpf Urine WBC >182 H (0-5) /hpf Urine WBC Clumps Many H (None) /hpf Ur Squamous Epith Cells 10 H (0-4) /hpf Urine Bacteria Rare H (None) /hpf Hyaline Casts 16 H (0-2) /lpf Urine Mucus Rare H (None) /hpf 09/10/20 09/10/20 Range/Units 05:32 05:32 WBC 13.7 H (3.8-10.6) k/uL RBC 2.00 L (3.80-5.40) m/uL Hgb 6.5 L* D (11.4-16.0) gm/dL Hct 20.1 L (34.0-46.0) % MCV 100.9 H (80.0-100.0) fL RDW 18.0 H (11.5-15.5) % Plt Count 127 L (150-450) k/uL Neutrophils # 11.1 H (1.3-7.7) k/uL Sodium (137-145) mmol/L Chloride 111 H (96-109) mmol/L BUN (7-17) mg/dL Creatinine 2.0 H (0.52-1.04) mg/dL Est GFR (CKD-EPI)AfAm 26.7 L (60.0-200.0) Est GFR (CKD-EPI)NonAf 23.0 L (60.0-200.0) BUN/Creatinine Ratio 10.50 L (12.00-20.00) Ratio Glucose (74-99) mg/dL Calcium 8.5 L (8.7-10.3) mg/dL Total Protein 5.5 L (6.2-8.2) g/dL Albumin 3.50 L (3.80-4.90) g/dL Urine Appearance (Clear) Urine Protein (Negative) Urine Blood (Negative) Ur Leukocyte Esterase (Negative) Urine RBC (0-5) /hpf Urine WBC (0-5) /hpf Urine WBC Clumps (None) /hpf Ur Squamous Epith Cells (0-4) /hpf Urine Bacteria (None) /hpf Hyaline Casts (0-2) /lpf Urine Mucus (None) /hpf Microbiology - Last 24 Hours (Table) 09/09/20 11:33 Urine Culture - Preliminary Urine,Voided
--- NOTE | 2020-09-10 15:43 | P.CONS ---
History of Present Illness - Reason for Consult Consult date: 09/10/20 Oncologic care Requesting physician: Félix Dos Santos - Chief Complaint Weakness - History of Present Illness Ms Overton is a pleasant WF, initially seen in consult at [facility] on 12/27/16. She had been admitted with persistent n/v and dehydration, associated with intermittent confusion and hallucinations. She was found to have abnormal findings in the right breast on mammogram in 07/23. She had a stereotactic core biopsy of one area on 07/25/16, revealing ALH. She then had right medial lumpectomy and rt posterior lumpectomy on 08/01/16. The medial specimen revealed a 0.3 cm invasive lobular carcinoma, ER/WI +ve , Her -2 1+ ( -ve), in a background of LCIS and ALH. The posterior specimen showed LCIS and ALH. She had a b/l mastectomy on 09/19/16 with residual low and high grade DCIS on the right and ALH/LCIS on the left. SNB on the right showed isolated tumor cells, with additional 6 nodes negative. She had a bowel resection for ischemic bowel at [facility] later in 09/22. The concern , in the 12/22 admission, was for a paraneoplastic syndrome or recurrence. This was felt to be highly unlikely, given the very early stage of her cancer. She had a CT CAP, tumor markers and MRI brain, all negative for any evidence of malignancy. She had a PEG placement in 01/22 as well as endoscopies at [facility], with the latter also negative. The pt did improve slowly. The n/v and MS changes were ultimately felt to be medication related and resolved with adjustment of the same. She was transferrred to [facility] and discharged home in mid 03/24. Her PO intake gradually improved, and she stopped using the PEG in early 03/24. She was seen for her 1st OV on 03/26/17. Due to the early stage, marker status and pt's age, as well b/l mastectomies, it was felt that any benefit from adjuvant hormonal therapy would be quite low. After discussion of risks and benefits, the pt decided against the same, which was felt to be reasonable. She was thus recommended f/u with her PCP and surgery The pt developed recurrent infections in her chest wall subsequently, including an admission in 07/25 for MRSA, requiring Iv antibiotics inpt and outpt. She had to have her implants removed and was not felt to be a candidate for further reconstruction. She had revision for redundant tissue in her chest wall in 05/25 with pathology showing no obvious malignancy She was referred back by Surgery in 10/26 It was felt that any benefit from AI would be low. however the pt then decided to take the AI, and started in 11/26. Baseline BMD in 12/24 was normal. She had an accidental fall in 01/24 and suffered trauma to the rt shoulder and chest wall. No fractures occurred. when seen in 07/26 she reported that she had not taken the AI for a few months, as she did not refill her prescription for the previous one. she had also missed her previous scheduled appointment. She reported having progressive issues with memory. She has been deaing with recurrent UTIs since about early fall of 2018. She was starting IV antibiotics for 10 days, and had a PICC placed, when seen in 11/27. the patient had urine cytology done in 04/26 which was positive for high-grade urothelial carcinoma. she then proceeded to cystoscopy by Dr. Chavez on 05/05/20. She had biopsies done from about 5 sites with 4 showing urothelial carcinoma in situ. 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 The patient was referred to urology at [facility]. She had a CT urogram on 06/02/20 that showed no obvious metastatic disease in the abdomen or pelvis. She was recommended chemotherapy prior to surgical evaluation, and was referred back here and seen on 06/15/20 PET and MRI showed no metastatic disease. The patient was then started on PERSON INVESTIGATOR-16 and carboplatin on 06/23/20 and is status post 4 cycles with neulasta on 08/30/20 She was scheduled for CTA on 08/[address] abdomen and Pelvis on 09/09 for restaging. She is now presenting to ED with weakness and acute kidney injury. Creatinine on admission 3.6, today 2. Nephrology following CT abdomen and pelvis without contrast yesterday shows no progression of disease, new masses or new adenopathy. She was treated for UTI, culture negative this far and blood cultures negative. Review of Systems All systems: negative Constitutional: Reports as per HPI Past Medical History Past Medical History: Atrial Fibrillation, Cancer, GERD/Reflux, Hyperlipidemia, Hypertension, Memory Impairment, Osteoarthritis (OA), Renal Disease Additional Past Medical History / Comment(s): Hx of anemia, sepsis, Breast Cancer 09/2016, 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 Mild memory changes. upper denture, lower dental implants. perineal/pelvic pain, freq uti, currently resistant to outpatient AB Rx. History of Any Multi-Drug Resistant Organisms: MRSA, Other MDRO Year Discovered:: 06/21/18 MDRO Source:: MRSA CHEST Past Surgical History: Bowel Resection, Breast Surgery, Heart Catheterization, Orthopedic Surgery, Tubal Ligation Additional Past Surgical History / Comment(s): R rotator cuff repair. Bilateral mastectomy 09/22, had failed reconstruction. May 2018 had excision rt and lt reconstructred breast/chest wall deformities. bowel resection 10/2016, heart cath 12/13/17, tiff cataracts, lower dental implants. Past Anesthesia/Blood Transfusion Reactions: Previous Problems w/ Anesthesia, Postoperative Nausea & Vomiting (PONV) Additional Past Anesthesia/Blood Transfusion Reaction / Comm: PATIENT STATES HER TEETH IMPLANTS WERE DISLODGED DURING INTUBATION AND SHE SWALLOWED A TOOTH 2016. pt stated she has recieved blood transfusion in past, no reaction to it. Past Psychological History: No Psychological Hx Reported Smoking Status: Former smoker Past Alcohol Use History: None Reported Past Drug Use History: None Reported - Past Family History Mother Family Medical History: Myocardial Infarction ([place]) Additional Family Medical History / Comment(s): in her 80's Father Family Medical History: Myocardial Infarction ([place]) Additional Family Medical History / Comment(s): age 56 from [place] Brother(s) Family Medical History: Cancer Medications and Allergies Home Medications Medication Instructions Recorded Confirmed Type Apixaban [Eliquis] 5 mg PO BID 11/24/16 09/09/20 History Escitalopram [Lexapro] 10 mg PO DAILY 01/12/17 09/09/20 History Metoprolol Succinate (ER) [Toprol 100 mg PO QAM 12/14/17 09/09/20 History XL] Atorvastatin Calcium [Lipitor] 10 mg PO HS 03/19/18 09/09/20 History Furosemide [Lasix] 20 mg PO QAM 03/19/18 09/09/20 History Memantine [Namenda] 10 mg PO BID 11/28/19 09/09/20 History rOPINIRole HCL [Requip] 0.5 mg PO BID 11/28/19 09/09/20 History Anastrozole 1 mg PO DAILY 09/09/20 09/09/20 History HYDROcodone/APAP 5-325MG [[place] 1 tab PO QID PRN 09/09/20 09/09/20 History 5-325] Losartan Potassium 100 mg PO DAILY 09/09/20 09/09/20 History Ondansetron [Zofran] 4 mg PO TID PRN 09/09/20 09/09/20 History Allergies Allergy/AdvReac Type Severity Reaction Status Date / Time codeine AdvReac Reaction Verified 09/09/20 11:38 to Tylenol #3 Physical Exam Vitals: Vital Signs Temp Pulse Pulse Resp BP BP Pulse Ox 09/10/20 15:29 98.0 F 127/62 09/10/20 14:47 98.2 F 127/53 09/10/20 14:17 97.7 F 128/58 09/10/20 14:07 97.7 F 63 126/57 09/10/20 13:16 97.5 F L 68 18 149/61 96 09/10/20 07:00 71 18 09/10/20 02:35 97.8 F 89 18 119/57 98 09/10/20 02:15 18 09/09/20 20:57 72 18 156/72 96 09/09/20 20:00 97.9 F 71 16 137/63 93 L 09/09/20 18:48 97.6 F 75 16 133/86 95 09/09/20 17:00 97.4 F L 68 16 124/57 97 Intake and Output 09/10/20 09/10/20 09/10/20 06:59 14:59 22:59 Intake Total 0 Balance 0 Intake: Blood Product 0 Rc As-1 Unit 0 [id number] Other: Voiding Method Toilet Toilet - Constitutional General appearance: cooperative, no acute distress - EENT Eyes: EOMI, PERRLA ENT: hard of hearing, NA/AT, normal oropharynx - Neck Neck: normal ROM - Respiratory Respiratory: bilateral: CTA - Cardiovascular Rhythm: regular - Gastrointestinal General gastrointestinal: normal bowel sounds, soft - Integumentary Integumentary: pale - Neurologic Neurologic: CNII-XII intact - Musculoskeletal Musculoskeletal: generalized weakness, strength equal bilaterally - Psychiatric Psychiatric: A&O x's 3, appropriate affect, intact judgment & insight Results CBC & Chem 7: 09/10/20 22:22 09/10/20 05:32 Labs: Abnormal Lab Results - Last 24 Hours (Table) 09/10/20 09/10/20 09/10/20 Range/Units 05:32 05:32 09:33 WBC 13.7 H (3.8-10.6) k/uL RBC 2.00 L (3.80-5.40) m/uL Hgb 6.5 L* D (11.4-16.0) gm/dL Hct 20.1 L (34.0-46.0) % MCV 100.9 H (80.0-100.0) fL RDW 18.0 H (11.5-15.5) % Plt Count 127 L (150-450) k/uL Neutrophils # 11.1 H (1.3-7.7) k/uL Chloride 111 H (96-109) mmol/L Creatinine 2.0 H (0.6-1.5) mg/dL Est GFR (CKD-EPI)AfAm 26.7 L (60.0-200.0) Est GFR (CKD-EPI)NonAf 23.0 L (60.0-200.0) BUN/Creatinine Ratio 10.50 L (12.00-20.00) Ratio Calcium 8.5 L (8.7-10.3) mg/dL Total Protein 5.5 L (6.2-8.2) g/dL Albumin 3.50 L (3.80-4.90) g/dL Crossmatch See Detail Microbiology - Last 24 Hours (Table) 09/09/20 11:33 Urine Culture - Preliminary Urine,Voided CT scan - abdomen: report reviewed CT scan - chest: report reviewed CT scan - pelvis: report reviewed Assessment and Plan (1) Macrocytic anemia Narrative/Plan: - Transfusion support hemoglobin less than 7 - Anemia secondary to dilution and chemotherapy - Transfuse PRBC today Current Visit: Yes Status: Acute Code(s): D53.9 - NUTRITIONAL ANEMIA, UNSPECIFIED SNOMED Code(s): 03437348 (2) Bladder cancer Narrative/Plan: - Details in HPI - Status Post Carbo/vp16 11.23 (4 cycles) with neulasta Current Visit: Yes Status: Acute Code(s): C67.9 - MALIGNANT NEOPLASM OF BLADDER, UNSPECIFIED SNOMED Code(s): 650942604 (3) History of breast cancer Current Visit: Yes Status: Acute Code(s): Z85.3 - PERSONAL HISTORY OF MALIGNANT NEOPLASM OF BREAST SNOMED Code(s): 807844817 (4) Acute renal failure Current Visit: Yes Status: Acute Code(s): N17.9 - ACUTE KIDNEY FAILURE, UNSPECIFIED SNOMED Code(s): 15839157 Plan: Transfuse one unit of PRBC today Reviewed CT with patient - Evidence of treatment response Continue fluids and monitoring renal function Avoid nephrotoxins Physician attest: I have completed full history and physical and agree with above dictation, dictated as a scribe
[2020-09-10] MEDS: ATORVASTATIN 10 MG TAB PO SCH (20:02)
[2020-09-10 22:43] LABS: Anisocytosis Slight; HCT 24.9 % (34.0-46.0); MCH 33.1 pg (25.0-35.0); MCHC 33.9 g/dL (31.0-37.0); MCV 97.6 fL (80.0-100.0); Macrocytosis Slight; Mean Platelet Volume 7.7; Platelet Count 132 k/uL (150-450); RBC 2.55 m/uL (3.80-5.40); RDW 17.2 % (11.5-15.5); WBC 16.1 k/uL (3.8-10.6)
[2020-09-10 22:56] LABS: HGB 8.4 gm/dL (11.4-16.0)
[2020-09-11 05:29] VITALS: BP 154/89; PULSE 79; RESP 16; TEMP 97.9
[2020-09-11 06:45] LABS: Anisocytosis Slight; HCT 25.6 % (34.0-46.0); HGB 8.7 gm/dL (11.4-16.0); Hypochromasia Slight; MCH 33.6 pg (25.0-35.0); MCHC 34.1 g/dL (31.0-37.0); MCV 98.5 fL (80.0-100.0); Macrocytosis Slight; Mean Platelet Volume 7.9; Platelet Count 128 k/uL (150-450); RDW 17.2 % (11.5-15.5); WBC 14.3 k/uL (3.8-10.6)
[2020-09-11 07:20] LABS: Band Neutrophils % 7 %; Lymphocytes # (M) 2.15 k/uL (1.0-4.8); Metamyelocytes # (M) 0.43 k/uL (0); Metamyelocytes % 3 %; Myelocytes # (M) 0.14 k/uL (0); Myelocytes % 1 %; Neutrophils % (M) 67 %; Nucleated Red Blood Cells 0 /100 WBC (0-0); Total Cells Counted 100
[2020-09-11 07:21] LABS: Polychromasia Present; Tear Drop Cells Present
[2020-09-11] MEDS: FAMOTIDINE 20 MG TAB PO SCH (08:36)
[2020-09-11] MEDS: ANASTROZOLE 1 MG TAB PO SCH (08:36)
[2020-09-11] MEDS: ESCITALOPRAM 10 MG TAB PO SCH (08:36)
[2020-09-11] MEDS: MEMANTINE 10 MG TAB PO SCH (08:36)
[2020-09-11] MEDS: METOPROLOL SUCCINATE (ER) 100 MG TAB.ER.24H PO SCH (08:36)
[2020-09-11 09:06] LABS: Albumin 3.5 g/dL (3.80-4.90); Albumin/Globulin Ratio 1.84 (1.60-3.17); Anion Gap 10.9 mmol/L (4.00-12.00); BUN/Creat Ratio 11.43 Ratio (12.00-20.00); Calcium 8.8 mg/dL (8.7-10.3); Carbon Dioxide 21.1 mmol/L (21.6-31.8); Globulin 1.9 g/dL (1.6-3.3); Non-African American GFR(CKD) 35.4 (60.0-200.0); Potassium 4.1 mmol/L (3.5-5.5); Total Bilirubin 0.3 mg/dL (0.2-1.2); Total Protein 5.4 g/dL (6.2-8.2)
[2020-09-11] MEDS: SODIUM FERRIC GLUCONAT-SUCROSE 125 MG in SODIUM CHLORIDE 0.9% 100 ML IVPB SCH (09:21)
[2020-09-11 09:23] VITALS: BMI 33.0
[2020-09-11] MEDS: SODIUM CHLORIDE 0.9% 1,000 ML IV SCH (10:32)
--- NOTE | 2020-09-11 10:46 | P.DS ---
Providers Date of admission: 09/09/20 13:17 Expected date of discharge: 09/11/20 Attending physician: Luisaan Quintanilla Consults: 09/09/20 13:16 Consult Physician Urgent Consulting Provider: Chandrakant Rondon Consult Reason/Comments: Oncological care Do you want consulting provider notified?: Yes 09/09/20 13:50 Consult Physician Routine Consulting Provider: Shaun Penaloza Consult Reason/Comments: JAYSHREE Do you want consulting provider notified?: Yes 09/10/20 09:51 Consult Physician Routine Consulting Provider: Alex Chavez Consult Reason/Comments: bladder ca Do you want consulting provider notified?: Yes Primary care physician: Luisana Quintanilla [facility] Course: HISTORY OF PRESENT ILLNESS 79-year-old female one of Dr. Quintanilla's patient with past medical history of atrophy fibrillation, hypertension, hyperlipidemia, chronic kidney disease, breast cancer, ischemic bowel with bowel resection, recurrent UTI was diagnosed with bladder cancer has been treated by oncology with chemotherapy. Patient had her last chemotherapy 2 weeks ago she was sent to the emergency department today by her oncologist because of severe abnormal kidney function with creatinine of 3.6 with baseline around 1.0 was diagnosed with acute kidney failure, patient has been slightly bit dehydrated also has been having sign and symptom of UTI with mild hematuria or burning discomfort frequency and urgency. At the time was seen at the emergency department her UA was positive with many WBC clumps along with large leukocyte esterase and some RBC. Culture was done Covid testing came back negative, patient had severe leukocytosis with WBC of 18,000 hemoglobin of 8.1 slightly bit down compared to before mild thrombocytopenia. Also had mild hyponatremia at 133 with BUN of 24 and creatinine of 3.18. Patient was started on hydration Rocephin 1 g was giving patient was admitted to the hospital will be seen oncology and urology. 09/10: Patient is seen today in the emergency center, waiting for [facility] bed. Hemogl patient has been seen by nephrology and decreased IV fluids to 75 mL per hour, diuretics and losartan are on hold. Hemoglobin today is at 6.5 and patient is ordered for 2 units packed RBCs. White count is at 13.7, platelet count 127. Creatinine is down to 2.0 with BUN of 21. Potassium 3.7. Urine culture is in progress. She denies abdominal pain. No blood in her urine. Consults are in place with oncology and add a consult for urology. 09/11: Patient denies any new complaints today. She has been afebrile, heart rate 79, blood pressure 154/89, pulse ox 97% on room air. She was started on Ferrlecit yesterday and will receive her second dose today. She is status post 2 units of packed RBCs. WBC 14.3, hemoglobin 8.7 and platelet count 128. Florentin eugene has not been seen by urology but discussed case with Dr. Villagran he expects that urine will look as if she has a urinary tract infection but if we are going to treat anything only do it for 3 days. Patient will be given a prescription for 7 days of ciprofloxacin with plan to follow-up in the office on Sunday next week for blood work and evaluate if antibiotics are completed at that time. Patient denies having any abdominal pain, no nausea or vomiting. No diarrhea. Eliquis will be resumed at the time of discharge. Patient will be discharged home today in stable condition. ASSESSMENT AND PLAN 1 acute kidney failure secondary to dehydration, hypovolemia. 2 sepsis and UTI 3 Diagnosis of bladder cancer 4 acute anemia possibly related to chemotherapy and cancer. 5 paroxysmal atrial fibrillation. 6 hyperlipidemia 7 recurrent depression 8 restless leg syndrome 9 history of breast cancer 10 mild memory loss DISCHARGE PLAN home Impression and plan of care have been directed as dictated by the signing physician. Mayi Lindsay nurse practitioner acting as scribe for signing physician. Patient Condition at Discharge: Good Plan - Discharge Summary Discharge Rx Participant: No New Discharge Prescriptions: New Ciprofloxacin HCl [Cipro] 500 mg PO Q12HR #14 tablet Famotidine [Pepcid] 20 mg PO DAILY tab Continue Apixaban [Eliquis] 5 mg PO BID Escitalopram [Lexapro] 10 mg PO DAILY Metoprolol Succinate (ER) [Toprol XL] 100 mg PO QAM Atorvastatin Calcium [Lipitor] 10 mg PO HS Furosemide [Lasix] 20 mg PO QAM rOPINIRole HCL [Requip] 0.5 mg PO BID Memantine [Namenda] 10 mg PO BID Anastrozole 1 mg PO DAILY HYDROcodone/APAP 5-325MG [[place] 5-325] 1 tab PO QID PRN PRN Reason: Pain Losartan Potassium 100 mg PO DAILY Ondansetron [Zofran] 4 mg PO TID PRN PRN Reason: Nausea Discharge Medication List Apixaban [Eliquis] 5 mg PO BID 11/24/16 [History] Escitalopram [Lexapro] 10 mg PO DAILY 01/12/17 [History] Metoprolol Succinate (ER) [Toprol XL] 100 mg PO QAM 12/14/17 [History] Atorvastatin Calcium [Lipitor] 10 mg PO HS 03/19/18 [History] Furosemide [Lasix] 20 mg PO QAM 03/19/18 [History] Memantine [Namenda] 10 mg PO BID 11/28/19 [History] rOPINIRole HCL [Requip] 0.5 mg PO BID 11/28/19 [History] Anastrozole 1 mg PO DAILY 09/09/20 [History] HYDROcodone/APAP 5-325MG [[place] 5-325] 1 tab PO QID PRN 09/09/20 [History] Losartan Potassium 100 mg PO DAILY 09/09/20 [History] Ondansetron [Zofran] 4 mg PO TID PRN 09/09/20 [History] Ciprofloxacin HCl [Cipro] 500 mg PO Q12HR #14 tablet 09/11/20 [Rx] Famotidine [Pepcid] 20 mg PO DAILY tab 09/11/20 [Rx] Follow up Appointment(s)/Referral(s): Chandrakant Rondon MD [STAFF PHYSICIAN] - 1 Week Luisana Quintanilla MD [Primary Care Provider] - 1 Week (Sunday or Sunday of next week for lab work and evaluation of patient is continue antibiotics.) Alex Chavez MD [STAFF PHYSICIAN] - 1 Week Patient Instructions/Handouts: Urinary Tract Infection in Women (DC) Discharge Disposition: HOME SELF-CARE
--- NOTE | 2020-09-13 10:02 | CDI ---
Documentation Clarification Form Date: 09/13/20 From: Nallely Logan CCS Phone: If you have a question about this query, please contact Andree Cortez, Dx Board Operator at [phone] between 8am and 5pm. Admit Date: 09/09/20 Discharge Date:09/11/20 Patient Name: Cat Overton Visit Number: [id number] ATTENTION: The Clinical Documentation Specialists (CDI) and [facility] Coding Staff appreciate your assistance in clarifying documentation. Please respond to the clarification below the line at the bottom and electronically sign. The CDI & [facility] Coding staff will review the response and follow-up if needed. Please note: Queries are made part of the Legal Health Record. If you have any questions, please contact the author of this message via ITS. Dear Dr. Gordon, CKD is documented in the H&P, PN, DS . History/Risk Factors: HTN, Bladder CA, UTI, Anemia due to Chemo, AFIB Clinical Indicators: Acute on chronic renal failure Current BUN: 24, 21 CR: 3.18, 2.0 GFR: 13, 23, 35.4 Treatment: Monitor Consult: Tremaine In order to capture the severity of condition, please clarify the stage of the CKD, if known: CKD Stage 1 (GFR > 90) CKD Stage 2 (GFR 60-89) CKD Stage 3a (GFR 45-59) CKD Stage 3b (GFR 30-44) CKD Stage 4 (GFR 15-29) CKD Stage 5 (GFR <15) ESRD Other, please specify Unable to determine MTDD
== END 2020-09-11 12:00 | disposition home or self-care (01) | DRG 872 ==
LOC: EC 10:51 → 4SSUR 13:17 → 5NMEDONC 09-10 14:57
PROVIDERS: ADMIT Family Medicine; ATTEND Family Medicine
PROC: 30233N1 Transfusion of Nonautologous Red Blood Cells into Peripheral Vein, Percutaneous Approach (ICD-10-PCS; principal; 2020-09-10)
DX: A41.9 Sepsis, unspecified organism (principal); N17.9 Acute kidney failure, unspecified; E87.1 Hypo-osmolality and hyponatremia; F33.9 Major depressive disorder, recurrent, unspecified; N39.0 Urinary tract infection, site not specified; D69.6 Thrombocytopenia, unspecified; D63.1 Anemia in chronic kidney disease; C67.9 Malignant neoplasm of bladder, unspecified; I48.0 Paroxysmal atrial fibrillation; Z20.828 Contact with and (suspected) exposure to other viral communicable diseases; D63.0 Anemia in neoplastic disease; K21.9 Gastro-esophageal reflux disease without esophagitis; I12.9 Hypertensive chronic kidney disease with stage 1 through stage 4 chronic kidney disease, or unspecified chronic kidney disease; E86.0 Dehydration; E78.5 Hyperlipidemia, unspecified; M19.90 Unspecified osteoarthritis, unspecified site; G25.81 Restless legs syndrome; R41.3 Other amnesia; D64.81 Anemia due to antineoplastic chemotherapy; E86.1 Hypovolemia; N18.9 Chronic kidney disease, unspecified; T45.1X5A Adverse effect of antineoplastic and immunosuppressive drugs, initial encounter; Z71.3 Dietary counseling and surveillance; Z79.01 Long term (current) use of anticoagulants; Z79.899 Other long term (current) drug therapy; Z79.811 Long term (current) use of aromatase inhibitors; Z97.2 Presence of dental prosthetic device (complete) (partial); Z87.19 Personal history of other diseases of the digestive system; Z87.440 Personal history of urinary (tract) infections; Z98.890 Other specified postprocedural states; Z98.42 Cataract extraction status, left eye; Z98.41 Cataract extraction status, right eye; Z98.51 Tubal ligation status; Z87.891 Personal history of nicotine dependence; Z85.3 Personal history of malignant neoplasm of breast; Z90.13 Acquired absence of bilateral breasts and nipples; Z90.49 Acquired absence of other specified parts of digestive tract; Z88.5 Allergy status to narcotic agent; Z82.49 Family history of ischemic heart disease and other diseases of the circulatory system; Z80.9 Family history of malignant neoplasm, unspecified
CPT/HCPCS: 36415; 36430; 80053; 81001; 83735; 85025; 85027; 86850; 86900; 86901; 86920; 87040; 87086; 87635; 96361; 96365; 96366; 96375; 99285

== ENCOUNTER → 2020-09-09 | Outpatient (CLI) | payer MEDICARE ==
--- NOTE | 2020-09-09 11:15 | CT ---
EXAMINATION TYPE: CT abdomen pelvis wo con DATE OF EXAM: 09/09/2020 HISTORY: bladder cancer. hx breast cancer CT DLP: 1087.7 mGycm. Automated Exposure Control for Dose Reduction was Utilized. TECHNIQUE: CT scan of the abdomen and pelvis is performed with oral but without IV contrast. IV cont rast could not be given due to diminished renal function today. COMPARISON: CT abdomen and pelvis May 29, 2019 FINDINGS: Within the limitations of a non-contrast study, the following observations are made. LUNG BASES: [id number]-[id number] scattered fibrotic and atelectatic changes at both bases left greater th an right is redemonstrated. Right coronary artery stent and/or calcification again seen. Calcificatio n at level mitral valve redemonstrated. Slightly elevated left hemidiaphragm redemonstrated. LIVER/GB: Contracted gallbladder on current study. Stable small intraluminal gallstone on image 28. PANCREAS: No significant abnormality is seen. SPLEEN: No significant abnormality is seen. ADRENALS: No significant abnormality is seen. KIDNEYS: There is simple appearing 2.3 cm thin-walled cyst anteriorly upper pole left kidney axial im age 20 redemonstrated. No renal stones or hydronephrosis identified on current study. No intraluminal calculi poorly distended bladder. Scattered bilateral pelvic phleboliths redemonstrated. Renal sizes are stable and within normal limits. BOWEL: Low-lying cecum into the right pelvis redemonstrated. Oral contrast reaches level of the dista l transverse colon. No suspicious small or large bowel dilatation. GENITAL ORGANS: Anteverted uterus. LYMPH NODES: No greater than 1cm abdominal or pelvic lymph nodes are appreciated. OSSEOUS STRUCTURES: Moderate to severe disc space narrowing and vacuum disc phenomenon L5-S1 level re demonstrated. Moderate disc space narrowing with endplate sclerosis T12-L1 level redemonstrated. Mult ilevel facet arthropathy mid to lower lumbar spine redemonstrated. Moderate axial joint space loss solange th hips again seen. OTHER: Moderate calcified plaque of the aorta extends into branch vessels. IMPRESSION: No suspicious new mass or adenopathy identified on noncontrast CT.
== END | disposition home or self-care (01) ==
LOC: RADCTMAIN 08:33
PROVIDERS: ATTEND Internal Medicine Hematology & Oncology
DX: C67.9 Malignant neoplasm of bladder, unspecified (principal)
CPT/HCPCS: 36415; 74176; 82565; 84520

== ENCOUNTER → 2020-12-17 | Outpatient (CLI) | payer MEDICARE ==
--- NOTE | 2020-12-20 07:06 | PE ---
EXAMINATION TYPE: PET CT fusion skull to thigh DATE OF EXAM: 12/17/2020 COMPARISON: CT abdomen and pelvis September 09, 2020 and older CTs HISTORY: Bladder cancer diagnosed last year completed chemotherapy 2 months ago. TECHNIQUE: Following the intravenous administration of 10.26 mCi of F-18 FDG, whole body images are performed from the skull base to the midthigh. Images are reviewed on the computer in the coronal, a xial, and sagittal planes. Reconstructed rotating images are created on independent workstation and reviewed on the computer. A localization and attenuation correction CT is performed in conjunction with the PET scan. Blood glucose level was 89 SCAN: Subsequent Scan FINDINGS: SKULL BASE AND NECK: No suspicious hypermetabolic uptake. CHEST, MEDIASTINUM, AND HILAR REGION: No suspicious hypermetabolic uptake. ABDOMEN AND PELVIS: Uptake throughout bladder is present. Some nonspecific bowel uptake in lower abdo niraj bowel loops. No abnormal hypermetabolic uptake clearly seen. OSSEOUS STRUCTURES: No abnormal hypermetabolic uptake. OTHER CT: Mild to moderate underlying emphysematous change. Mild/moderate bilateral lower lung scarri ng and/or atelectasis. Enlarged pulmonary arteries, CT findings consistent with underlying pulmonary artery hypertension. Surgical change at level of the atrial septum. Calcification at level of the estrellita ral valve. Moderate to severe three-vessel coronary artery calcification and/or stents. Surgical peña ge to the bilateral breasts. Small dependent calcified gallstone. Moderate calcified plaque abdominal aorta extends into distal br anches. Multiple scattered bilateral pelvic phleboliths. Surgical changes to anterior bowel loop mid abdomen axial image 160. Moderate to severe disc space narrowing with vacuum disc phenomenon L5-S1 level. IMPRESSION: No suspicious hypermetabolic uptake to suggest active neoplasm.
== END | disposition home or self-care (01) ==
LOC: RADPETMAIN 17:56
PROVIDERS: ATTEND Radiology Radiation Oncology
DX: C67.1 Malignant neoplasm of dome of bladder (principal); C50.219 Malignant neoplasm of upper-inner quadrant of unspecified female breast; Z85.3 Personal history of malignant neoplasm of breast
CPT/HCPCS: 78815; A9552

== ENCOUNTER → 2020-12-30 | Outpatient (CLI) | payer MEDICARE ==
[2020-12-30 14:26] LABS: Appearance,Urine Clear (Clear); Bilirubin,Urine Negative (Negative); Blood,Urine Negative (Negative); Color,Urine Light Yellow; Glucose,Urine (UA) Negative (Negative); Ketones,Urine Negative (Negative); Leukocyte Esterase,Urine Moderate (Negative); Mucus,Urine Rare /hpf; Nitrite,Urine Negative (Negative); PH, Urine 5.5 (5.0-8.0); Protein,Urine Negative (Negative); RBC,Urine 1 /hpf (0-5); Specific Gravity,Urine 1.009 (1.001-1.035); Squamous Epithelial Cell,Urine <1 /hpf (0-4); Urobilinogen,Urine <2.0 mg/dL (<2.0); WBC,Urine 13 /hpf (0-5)
[2020-12-30 18:36] LABS: HCT 34.4 % (37.2-46.3); HGB 10.7 g/dL (12.0-15.0); MCH 30.9 pg (27.0-32.0); MCHC 31.1 g/dL (32.0-37.0); MCV 99.4 fL (80.0-97.0); Mean Platelet Volume 10.3 fL (9.5-12.2); Platelet Count 189 X 10*3/uL (140-440); RBC 3.46 X 10*6/uL (4.10-5.20); RDW 13.2 % (11.5-14.5); WBC 7.45 X 10*3/uL (4.50-10.00)
[2020-12-30 21:55] LABS: Ferritin 170.2 ng/mL (10.0-291.0)
[2020-12-30 22:21] LABS: % Iron Saturation 98.7 (12.00-45.00); African American GFR (CKD) 49.1 (60.0-200.0); Albumin 4.5 g/dL (3.80-4.90); Albumin/Globulin Ratio 1.88 (1.60-3.17); Anion Gap 11.8 mmol/L (4.00-12.00); Calcium 9.4 mg/dL (8.7-10.3); Carbon Dioxide 22.2 mmol/L (21.6-31.8); Globulin 2.4 g/dL (1.6-3.3); Magnesium 2.3 mg/dL (1.5-2.4); Non-African American GFR(CKD) 42.3 (60.0-200.0); Phosphorus 3.3 mg/dL (2.4-5.1); Potassium 4.4 mmol/L (3.5-5.5); Total Protein 6.9 g/dL (6.2-8.2); Uric Acid 7.8 mg/dL (2.9-7.7)
== END | disposition home or self-care (01) ==
LOC: LABWHC1 13:31
PROVIDERS: ATTEND Nurse Practitioner Family
DX: N18.32 Chronic kidney disease, stage 3b (principal); D64.9 Anemia, unspecified; N39.0 Urinary tract infection, site not specified; N25.81 Secondary hyperparathyroidism of renal origin; E55.9 Vitamin D deficiency, unspecified; M10.9 Gout, unspecified
CPT/HCPCS: 36415; 80053; 81001; 82306; 82728; 83540; 83550; 83735; 83970; 84100; 84550; 85027; 87086

== ENCOUNTER 2021-01-25 12:50 | Inpatient (IN) | payer MEDICARE ==
[2021-01-25] MEDS ORDERED: SODIUM CHLORIDE 0.9% 1,000 ML IV ONE ×2 (13:07→17:14)
[2021-01-25] MEDS ORDERED: ONDANSETRON 4 MG/2 ML VIAL IVP STA (13:07)
[2021-01-25] MEDS ORDERED: ACETAMINOPHEN TAB 500 MG TAB PO STA (13:09)
--- NOTE | 2021-01-25 13:12 | ED ---
General Adult HPI - General Chief complaint: Nausea/Vomiting/Diarrhea Stated complaint: dehydration Time Seen by Provider: 01/25/21 12:50 Source: patient, EMS, RN notes reviewed, old records reviewed Mode of arrival: EMS Limitations: no limitations - History of Present Illness Initial comments: This is an 80-year-old female who presents emergency department with past medical history significant for bladder cancer. Patient states had chemotherapy yesterday. Patient comes in today because she's becoming weaker over the last few days. According to the daughter the patient had quite a bit diarrhea over the last week. Patient states she is too weak to walk today. Patient also complains of abdominal pain but it seems worse in the suprapubic region. Patient denies any nausea vomiting. Patient denies any chest pain palpitations difficulty breathing shortest breath. Patient denies any recent fever chills or cough. Patient has any leg swelling or calf tenderness. Patient denies any recent injury or trauma. - Related Data Home Medications Medication Instructions Recorded Confirmed Apixaban [Eliquis] 5 mg PO BID 11/24/16 01/25/21 Escitalopram [Lexapro] 10 mg PO DAILY 01/12/17 01/25/21 Metoprolol Succinate (ER) [Toprol 100 mg PO DAILY 12/14/17 01/25/21 XL] Atorvastatin Calcium [Lipitor] 10 mg PO HS 03/19/18 01/25/21 Furosemide [Lasix] 20 mg PO DAILY 03/19/18 01/25/21 Memantine [Namenda] 10 mg PO BID 11/28/19 01/25/21 rOPINIRole HCL [Requip] 0.5 mg PO BID 11/28/19 01/25/21 Anastrozole 1 mg PO DAILY 09/09/20 01/25/21 Losartan Potassium 100 mg PO DAILY 09/09/20 01/25/21 Ondansetron [Zofran] 4 mg PO TID PRN 09/09/20 01/25/21 Diphenoxylate HCl/Atropine 1 - 2 tab PO TID PRN 01/25/21 01/25/21 [Lomotil 2.5-0.025 mg Tablet] Galantamine HBr [Galantamine ER] 16 mg PO DAILY 01/25/21 01/25/21 Prazosin HCl 2 mg PO DAILY 01/25/21 01/25/21 Previous Rx's Medication Instructions Recorded Famotidine [Pepcid] 20 mg PO DAILY tab 09/11/20 Allergies Allergy/AdvReac Type Severity Reaction Status Date / Time codeine AdvReac Reaction Verified 01/25/21 14:05 to Tylenol #3 Review of Systems ROS Statement: Those systems with pertinent positive or pertinent negative responses have been documented in the HPI. ROS Other: All systems not noted in ROS Statement are negative. 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 Mild memory changes. upper denture, lower dental implants. perineal/pelvic pain, freq uti, currently resistant to outpatient AB Rx. History of Any Multi-Drug Resistant Organisms: MRSA, Other MDRO Date of last positivie culture/infection: 06/21/18 MDRO Source:: MRSA CHEST Past Surgical History: Bowel Resection, Breast Surgery, Heart Catheterization, Orthopedic Surgery, Tubal Ligation Additional Past Surgical History / Comment(s): R rotator cuff repair. Bilateral mastectomy 09/22, had failed reconstruction. May 2018 had excision rt and lt reconstructred breast/chest wall deformities. bowel resection 10/2016, heart cath 12/13/17, tiff cataracts, lower dental implants. Past Anesthesia/Blood Transfusion Reactions: Previous Problems w/ Anesthesia, Postoperative Nausea & Vomiting (PONV) Additional Past Anesthesia/Blood Transfusion Reaction / Comment(s): PATIENT STATES HER TEETH IMPLANTS WERE DISLODGED DURING INTUBATION AND SHE SWALLOWED A TOOTH 2016. pt stated she has recieved blood transfusion in past, no reaction to it. Past Psychological History: No Psychological Hx Reported Smoking Status: Former smoker Past Alcohol Use History: None Reported Past Drug Use History: None Reported - Past Family History Mother Family Medical History: Myocardial Infarction ([place]) Additional Family Medical History / Comment(s): in her 80's Father Family Medical History: Myocardial Infarction ([place]) Additional Family Medical History / Comment(s): age 56 from [place] Brother(s) Family Medical History: Cancer General Exam - General Exam Comments Initial Comments: GENERAL: Patient is well-developed and well-nourished. Patient is nontoxic and well- hydrated and is in mild distress. ENT: Neck is soft and supple. No significant lymphadenopathy is noted. Oropharynx is clear. Moist mucous membranes. Neck has full range of motion without eliciting any pain. EYES: The sclera were anicteric and conjunctiva were pink and moist. Extraocular movements were intact and pupils were equal round and reactive to light. Eyelids were unremarkable. PULMONARY: Unlabored respirations. Good breath sounds bilaterally. No audible rales rhonchi or wheezing was noted. CARDIOVASCULAR: There is a regular rate and rhythm without any murmurs gallops or rubs. ABDOMEN: Abdominal pain in the upper quadrants as well as suprapubic region SKIN: Skin is clear with no lesions or rashes and otherwise unremarkable. NEUROLOGIC: Patient is alert and oriented x3. Cranial nerves II through XII are grossly intact. Motor and sensory are also intact. Normal speech, volume and content. Symmetrical smile. MUSCULOSKELETAL: Normal extremities with adequate strength and full range of motion. LYMPHATICS: No significant lymphadenopathy is noted PSYCHIATRIC: Normal psychiatric evaluation. Limitations: no limitations Course Vital Signs 01/25/21 01/25/21 12:51 13:05 Temperature 98.2 F 99.9 F H Pulse Rate 75 Respiratory 18 Rate Blood Pressure 146/64 O2 Sat by Pulse 96 Oximetry Medical Decision Making - Lab Data Result diagrams: 01/25/21 13:20 01/25/21 13:20 Lab Results 01/25/21 01/25/21 01/25/21 Range/Units 13:20 13:20 13:20 WBC 0.2 L* (3.8-10.6) k/uL RBC 3.13 L (3.80-5.40) m/uL Hgb 10.0 L (11.4-16.0) gm/dL Hct 28.8 L (34.0-46.0) % MCV 92.0 (80.0-100.0) fL MCH 32.0 (25.0-35.0) pg MCHC 34.8 (31.0-37.0) g/dL RDW 13.4 (11.5-15.5) % Plt Count 85 L (150-450) k/uL MPV 7.6 Differential Comment P Manual Slide Review Performed Poikilocytosis (manual Present Anisocytosis (manual) Present APTT 22.4 (22.0-30.0) sec Sodium 132 L (137-145) mmol/L Potassium 4.5 (3.5-5.1) mmol/L Chloride 102 (98-107) mmol/L Carbon Dioxide 19 L (22-30) mmol/L Anion Gap 11 mmol/L BUN 17 (7-17) mg/dL Creatinine 1.05 H (0.52-1.04) mg/dL Est GFR (CKD-EPI)AfAm 58 (>60 ml/min/1.73 sqM) Est GFR (CKD-EPI)NonAf 50 (>60 ml/min/1.73 sqM) Glucose 151 H (74-99) mg/dL Lactic Ac Sepsis Rflx Plasma Lactic Acid Deion (0.7-2.0) mmol/L Calcium 8.6 (8.4-10.2) mg/dL Total Bilirubin 1.6 H (0.2-1.3) mg/dL AST 22 (14-36) U/L ALT 21 (4-34) U/L Alkaline Phosphatase 55 (38-126) U/L Troponin I (0.000-0.034) ng/mL Total Protein 6.5 (6.3-8.2) g/dL Albumin 3.5 (3.5-5.0) g/dL Amylase 43 (30-110) U/L Lipase <10 L (23-300) U/L Urine Color Urine Appearance (Clear) Urine pH (5.0-8.0) Ur Specific [place] (1.001-1.035) Urine Protein (Negative) Urine Glucose (UA) (Negative) Urine Ketones (Negative) Urine Blood (Negative) Urine Nitrite (Negative) Urine Bilirubin (Negative) Urine Urobilinogen (<2.0) mg/dL Ur Leukocyte Esterase (Negative) Urine RBC (0-5) /hpf Urine WBC (0-5) /hpf Ur Squamous Epith Cells (0-4) /hpf Amorphous Sediment (None) /hpf Urine Bacteria (None) /hpf Hyaline Casts (0-2) /lpf Urine Mucus (None) /hpf Coronavirus (PCR) (Not Detectd) Blood Type Blood Type Recheck Bld Type Recheck Status Antibody Screen Spec Expiration Date 01/25/21 01/25/21 01/25/21 Range/Units 13:20 13:20 14:06 WBC (3.8-10.6) k/uL RBC (3.80-5.40) m/uL Hgb (11.4-16.0) gm/dL Hct (34.0-46.0) % MCV (80.0-100.0) fL MCH (25.0-35.0) pg MCHC (31.0-37.0) g/dL RDW (11.5-15.5) % Plt Count (150-450) k/uL MPV Differential Comment Manual Slide Review Poikilocytosis (manual Anisocytosis (manual) APTT (22.0-30.0) sec Sodium (137-145) mmol/L Potassium (3.5-5.1) mmol/L Chloride (98-107) mmol/L Carbon Dioxide (22-30) mmol/L Anion Gap mmol/L BUN (7-17) mg/dL Creatinine (0.52-1.04) mg/dL Est GFR (CKD-EPI)AfAm (>60 ml/min/1.73 sqM) Est GFR (CKD-EPI)NonAf (>60 ml/min/1.73 sqM) Glucose (74-99) mg/dL Lactic Ac Sepsis Rflx Y Plasma Lactic Acid Deion 3.7 H* (0.7-2.0) mmol/L Calcium (8.4-10.2) mg/dL Total Bilirubin (0.2-1.3) mg/dL AST (14-36) U/L ALT (4-34) U/L Alkaline Phosphatase (38-126) U/L Troponin I <0.012 (0.000-0.034) ng/mL Total Protein (6.3-8.2) g/dL Albumin (3.5-5.0) g/dL Amylase (30-110) U/L Lipase (23-300) U/L Urine Color Urine Appearance (Clear) Urine pH (5.0-8.0) Ur Specific Wright (1.001-1.035) Urine Protein (Negative) Urine Glucose (UA) (Negative) Urine Ketones (Negative) Urine Blood (Negative) Urine Nitrite (Negative) Urine Bilirubin (Negative) Urine Urobilinogen (<2.0) mg/dL Ur Leukocyte Esterase (Negative) Urine RBC (0-5) /hpf Urine WBC (0-5) /hpf Ur Squamous Epith Cells (0-4) /hpf Amorphous Sediment (None) /hpf Urine Bacteria (None) /hpf Hyaline Casts (0-2) /lpf Urine Mucus (None) /hpf Coronavirus (PCR) (Not Detectd) Blood Type Blood Type Recheck Bld Type Recheck Status Antibody Screen Spec Expiration Date 01/25/21 01/25/21 01/25/21 Range/Units 14:27 15:07 15:23 WBC (3.8-10.6) k/uL RBC (3.80-5.40) m/uL Hgb (11.4-16.0) gm/dL Hct (34.0-46.0) % MCV (80.0-100.0) fL MCH (25.0-35.0) pg MCHC (31.0-37.0) g/dL RDW (11.5-15.5) % Plt Count (150-450) k/uL MPV Differential Comment Manual Slide Review Poikilocytosis (manual Anisocytosis (manual) APTT (22.0-30.0) sec Sodium (137-145) mmol/L Potassium (3.5-5.1) mmol/L Chloride (98-107) mmol/L Carbon Dioxide (22-30) mmol/L Anion Gap mmol/L BUN (7-17) mg/dL Creatinine (0.52-1.04) mg/dL Est GFR (CKD-EPI)AfAm (>60 ml/min/1.73 sqM) Est GFR (CKD-EPI)NonAf (>60 ml/min/1.73 sqM) Glucose (74-99) mg/dL Lactic Ac Sepsis Rflx Plasma Lactic Acid Deion (0.7-2.0) mmol/L Calcium (8.4-10.2) mg/dL Total Bilirubin (0.2-1.3) mg/dL AST (14-36) U/L ALT (4-34) U/L Alkaline Phosphatase (38-126) U/L Troponin I (0.000-0.034) ng/mL Total Protein (6.3-8.2) g/dL Albumin (3.5-5.0) g/dL Amylase (30-110) U/L Lipase (23-300) U/L Urine Color Light [place] Urine Appearance Cloudy H (Clear) Urine pH 5.5 (5.0-8.0) Ur Specific Wright 1.025 (1.001-1.035) Urine Protein 2+ H (Negative) Urine Glucose (UA) 1+ H (Negative) Urine Ketones Negative (Negative) Urine Blood Moderate H (Negative) Urine Nitrite Negative (Negative) Urine Bilirubin 1+ H (Negative) Urine Urobilinogen 2.0 (<2.0) mg/dL Ur Leukocyte Esterase Negative (Negative) Urine RBC 27 H (0-5) /hpf Urine WBC 2 (0-5) /hpf Ur Squamous Epith Cells 1 (0-4) /hpf Amorphous Sediment Rare H (None) /hpf Urine Bacteria Occasional H (None) /hpf Hyaline Casts 1 (0-2) /lpf Urine Mucus Few H (None) /hpf Coronavirus (PCR) Not Detected (Not Detectd) Blood Type O Negative Blood Type Recheck O Neg Bld Type Recheck Status No Antibody Screen NEGATIVE Spec Expiration Date 01/28/2021 - 232201/25/21 Range/Units 16:21 WBC (3.8-10.6) k/uL RBC (3.80-5.40) m/uL Hgb (11.4-16.0) gm/dL Hct (34.0-46.0) % MCV (80.0-100.0) fL MCH (25.0-35.0) pg MCHC (31.0-37.0) g/dL RDW (11.5-15.5) % Plt Count (150-450) k/uL MPV Differential Comment Manual Slide Review Poikilocytosis (manual Anisocytosis (manual) APTT (22.0-30.0) sec Sodium (137-145) mmol/L Potassium (3.5-5.1) mmol/L Chloride (98-107) mmol/L Carbon Dioxide (22-30) mmol/L Anion Gap mmol/L BUN (7-17) mg/dL Creatinine (0.52-1.04) mg/dL Est GFR (CKD-EPI)AfAm (>60 ml/min/1.73 sqM) Est GFR (CKD-EPI)NonAf (>60 ml/min/1.73 sqM) Glucose (74-99) mg/dL Lactic Ac Sepsis Rflx Plasma Lactic Acid Deion 1.8 (0.7-2.0) mmol/L Calcium (8.4-10.2) mg/dL Total Bilirubin (0.2-1.3) mg/dL AST (14-36) U/L ALT (4-34) U/L Alkaline Phosphatase (38-126) U/L Troponin I (0.000-0.034) ng/mL Total Protein (6.3-8.2) g/dL Albumin (3.5-5.0) g/dL Amylase (30-110) U/L Lipase (23-300) U/L Urine Color Urine Appearance (Clear) Urine pH (5.0-8.0) Ur Specific Wright (1.001-1.035) Urine Protein (Negative) Urine Glucose (UA) (Negative) Urine Ketones (Negative) Urine Blood (Negative) Urine Nitrite (Negative) Urine Bilirubin (Negative) Urine Urobilinogen (<2.0) mg/dL Ur Leukocyte Esterase (Negative) Urine RBC (0-5) /hpf Urine WBC (0-5) /hpf Ur Squamous Epith Cells (0-4) /hpf Amorphous Sediment (None) /hpf Urine Bacteria (None) /hpf Hyaline Casts (0-2) /lpf Urine Mucus (None) /hpf Coronavirus (PCR) (Not Detectd) Blood Type Blood Type Recheck Bld Type Recheck Status Antibody Screen Spec Expiration Date Disposition Clinical Impression: Diarrhea, Febrile neutropenia, Generalized weakness Disposition: ADMITTED IP TO THIS HOSP Referrals: Luisana Quintanilla MD [Primary Care Provider] - 1-2 days Time of Disposition: 17:14
[2021-01-25 13:37] LABS: HCT 28.8 % (34.0-46.0); MCHC 34.8 g/dL (31.0-37.0); Mean Platelet Volume 7.6; RBC 3.13 m/uL (3.80-5.40); RDW 13.4 % (11.5-15.5)
[2021-01-25 13:58] LABS: ALT 21 U/L (4-34); African American GFR (CKD) 58 (>60 ml/min/1.73 sqM); Albumin 3.5 g/dL (3.5-5.0); Amylase 43 U/L (30-110); Anion Gap 11 mmol/L; Blood Urea Nitrogen 17 mg/dL (7-17); Calcium 8.6 mg/dL (8.4-10.2); Carbon Dioxide 19 mmol/L (22-30); Chloride 102 mmol/L (98-107); Glucose 151 mg/dL (74-99); Lipase <10 U/L (23-300); Non-African American GFR(CKD) 50 (>60 ml/min/1.73 sqM); Sodium 132 mmol/L (137-145); Total Bilirubin 1.6 mg/dL (0.2-1.3); Total Protein 6.5 g/dL (6.3-8.2)
[2021-01-25 14:04] LABS: AST 22 U/L (14-36); Alkaline Phosphatase 55 U/L (38-126); Potassium 4.5 mmol/L (3.5-5.1)
[2021-01-25 14:28] LABS: WBC 0.2 k/uL (3.8-10.6)
[2021-01-25 14:48] LABS: Platelet Count 85 k/uL (150-450)
[2021-01-25 14:49] LABS: Anisocytosis (M) Present; Poikilocytosis (M) Present
[2021-01-25 15:26] LABS: Amorphous Sediment,Urine Rare /hpf; Appearance,Urine Cloudy (Clear); Bacteria,Urine Occasional /hpf; Bilirubin,Urine 1+ (Negative); Blood,Urine Moderate (Negative); Color,Urine Light Orange; Glucose,Urine (UA) 1+ (Negative); Hyaline Casts,Urine 1 /lpf (0-2); Ketones,Urine Negative (Negative); Leukocyte Esterase,Urine Negative (Negative); Mucus,Urine Few /hpf; Nitrite,Urine Negative (Negative); PH, Urine 5.5 (5.0-8.0); Protein,Urine 2+ (Negative); RBC,Urine 27 /hpf (0-5); Specific Gravity,Urine 1.025 (1.001-1.035); Squamous Epithelial Cell,Urine 1 /hpf (0-4); WBC,Urine 2 /hpf (0-5)
[2021-01-25] MEDS ORDERED: CEFEPIME 2 GM in SODIUM CHLORIDE 0.9% 100 ML IVPB STA (15:47)
[2021-01-25] MEDS ORDERED: VANCOMYCIN IV PER PHARMACY 1 EACH MISC MISCELLANE PRN (16:16)
--- NOTE | 2021-01-25 18:36 | XR ---
EXAMINATION TYPE: XR chest 2V DATE OF EXAM: 01/25/2021 CLINICAL HISTORY: Difficulty breathing . TECHNIQUE: Frontal and lateral view of the chest. COMPARISON: 03/19/2018 chest radiograph FINDINGS: The cardiomediastinal silhouette is within normal limits for size. Pulmonary vasculature i s normal. There is no focal air space opacity, pleural effusion, or pneumothorax seen. Redemonstrated mild compression deformities of the mid to inferior thoracic spine. IMPRESSION: Unchanged radiographic appearance of the chest. No acute cardiopulmonary process.
[2021-01-25] MEDS: FILGRASTIM-SNDZ 480 MCG/0.8 ML SYRINGE SQ SCH (20:40)
[2021-01-25] MEDS: VANCOMYCIN 1,250 MG in SODIUM CHLORIDE 0.9% 250 ML IVPB SCH (21:42)
[2021-01-25] MEDS ORDERED: DIPHENOX-ATROP 2.5-0.025 MG 1 EACH TAB PO PRN (23:05)
[2021-01-26] MEDS: ONDANSETRON 4 MG/2 ML VIAL IVP PRN (04:31)
[2021-01-26] MEDS: ACETAMINOPHEN TAB 325 MG TAB PO PRN (04:31)
[2021-01-26] MEDS: CEFEPIME 2 GM in SODIUM CHLORIDE 0.9% 100 ML IVPB SCH ×3 (05:08→23:53)
[2021-01-26 06:47] LABS: INR 1.3 (<1.2); Partial Thromboplastin Time 31.7 sec (22.0-30.0)
[2021-01-26 06:52] LABS: Basophils % (A) 0 %; Eosinophils % (A) 5 %; HCT 20.4 % (34.0-46.0); Lymphocytes % (A) 7 %; MCH 31.2 pg (25.0-35.0); MCHC 33.5 g/dL (31.0-37.0); Mean Platelet Volume 7.9; Monocytes % (A) 14 %; Neutrophils % (A) 57 %; RBC 2.19 m/uL (3.80-5.40); RDW 14.2 % (11.5-15.5)
[2021-01-26 06:53] LABS: WBC 0.1 k/uL (3.8-10.6)
[2021-01-26 06:55] LABS: HGB 6.8 gm/dL (11.4-16.0)
[2021-01-26 06:56] LABS: Neutrophils # (A) 0.1 k/uL (1.3-7.7); Platelet Count 50 k/uL (150-450)
[2021-01-26] MEDS: METOPROLOL SUCCINATE (ER) 100 MG TAB.ER.24H PO SCH (08:09)
[2021-01-26] MEDS: MEMANTINE 10 MG TAB PO SCH ×2 (08:09→21:02)
[2021-01-26] MEDS: LOSARTAN 50 MG TAB PO SCH (08:09)
[2021-01-26] MEDS: ESCITALOPRAM 10 MG TAB PO SCH (08:09)
[2021-01-26] MEDS: PRAZOSIN 1 MG CAP PO SCH (08:09)
[2021-01-26] MEDS: DONEPEZIL 10 MG TAB PO SCH (08:09)
[2021-01-26] MEDS: FAMOTIDINE 20 MG TAB PO SCH (08:09)
[2021-01-26] MEDS: ANASTROZOLE 1 MG TAB PO SCH (08:09)
[2021-01-26 08:23] LABS: Anisocytosis (M) Present; Poikilocytosis (M) Present
[2021-01-26] MEDS ORDERED: APIXABAN 5 MG TAB PO SCH (09:00)
[2021-01-26 09:01] LABS: MCH 31.1 pg (25.0-35.0); MCHC 33.2 g/dL (31.0-37.0); MCV 93.7 fL (80.0-100.0); Mean Platelet Volume 7.6; RBC 2.07 m/uL (3.80-5.40); RDW 14.4 % (11.5-15.5)
[2021-01-26 09:34] LABS: HGB 6.4 gm/dL (11.4-16.0); WBC 0.1 k/uL (3.8-10.6)
[2021-01-26 09:35] LABS: Platelet Count 41 k/uL (150-450)
[2021-01-26 09:40] LABS: HCT 19.4 % (34.0-46.0)
--- NOTE | 2021-01-26 10:28 | P.CONS ---
History of Present Illness - Reason for Consult Consult date: 01/25/21 Urothelial Requesting physician: Nicolas Hamilton - Chief Complaint Dirrhea Weakness - History of Present Illness Ms Overton is a pleasant WF, initially seen in consult at [facility] on 12/27/16. She had been admitted with persistent n/v and dehydration, associated with intermit tent confusion and hallucinations. She was found to have abnormal findings in the right breast on mammogram in 07/23. She had a stereotactic core biopsy of one area on 07/25/16, revealing ALH. She then had right medial lumpectomy and rt posterior lumpectomy on 08/01/16. The medial specimen revealed a 0.3 cm invasive lobular carcinoma, ER/[place] +ve , Her -2 1+ ( -ve), in a background of LCIS and ALH. The posterior specimen showed LCIS and ALH. She had a b/l mastectomy on 09/19/16 with residual low and high grade DCIS on the right and ALH/LCIS on the left. SNB on the right showed isolated tumor cells, with additional 6 nodes negative. She had a bowel resection for ischemic bowel at [facility] later in 09/22. The concern , in the 12/22 admission, was for a paraneoplastic syndrome or recurrence. This was felt to be highly unlikely, given the very early stage of her cancer. She had a CT CAP, tumor markers and MRI brain, all negative for any evidence of malignancy. She had a PEG placement in 01/22 as well as endoscopies at [facility], with the latter also negative. The pt did improve slowly. The n/v and MS changes were ultimately felt to be medication related and resolved with adjustment of the same. She was transferrred to [facility] and discharged home in mid 03/24. Her PO intake gradually improved, and she stopped using the PEG in early 03/24. She was seen for her 1st OV on 03/26/17. Due to the early stage, marker status and pt's age, as well b/l mastectomies, it was felt that any benefit from adjuvant hormonal therapy would be quite low. After discussion of risks and benefits, the pt decided against the same, which was felt to be reasonable. She was thus recommended f/u with her PCP and surgery The pt developed recurrent infections in her chest wall subsequently, including an admission in 07/25 for MRSA, requiring Iv antibiotics inpt and outpt. She had to have her implants removed and was not felt to be a candidate for further reconstruction. She had revision for redundant tissue in her chest wall in 05/25 with pathology showing no obvious malignancy She was referred back by Surgery in 10/26 It was felt that any benefit from AI would be low. however the pt then decided to take the AI, and started in 11/26. Baseline BMD in 12/24 was normal. She had an accidental fall in 01/24 and suffered trauma to the rt shoulder and chest wall. No fractures occurred. when seen in 07/26 she reported that she had not taken the AI for a few months, as she did not refill her prescription for the previous one. she had also missed her previous scheduled appointment. She reported having progressive issues with memory. She has been deaing with recurrent UTIs since about early fall of 2018. She was starting IV antibiotics for 10 days, and had a PICC placed, when seen in 11/27. the patient had urine cytology done in 04/26 which was positive for high-grade urothelial carcinoma. she then proceeded to cystoscopy by Dr. Chavez on 05/05/20. She had biopsies done from about 5 sites with 4 showing urothelial carcinoma in situ. 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 The patient was referred to urology at [facility]. She had a CT urogram on 06/02/20 that showed no obvious metastatic disease in the abdomen or pelvis. She was recommended chemotherapy prior to surgical evaluation, and was referred back here and seen on 06/15/20 PET and MRI showed no metastatic disease. The patient was then started on [employer]ICIAN-16 and carboplatin on 06/23/20 and is status post 3 cycles She denied any f/c/v/LAD/abdominal pain. SHe does have intermittent nausea lasting up to 2 wks post chemo. She has had mouth sores, with decreased appetite, responsive to Cool's solution. She reports nodular inflammation on her scalp. She reports decreased endurance, and family feels she may be SOB on exertion. Dopplers after C 2 were negative. She reports intermittent crampy pain in her LE. She had 1 episode, where she thought her stool was black. She still has some redundant tissue in b/l axillary areas. No significant UE swelling , or limitation of ROM at shoulders. Her ROS is otherwise as per HPI and negative out of 10. 09/16/20-Pt here today s/p 4/4 cycles of adj carbo/[employer]ASS [employer]CHNICIAN for bladder ca. She is following up at [facility] in [place]. Eyes hurt, neck hurts, generalized fatigue, appetite/taste poor, wt stable. No other c/o. 01/05/21-Pt here today s/p 1/2 additional cycles of carbo/[employer]ASS [employer]CH[employer]ICIAN with XRT, 33 planned, she has had around 7 at this time-it was decided no surgery. Her eyes are hurting, blurry vision, left eye, mouth is very dry, not feeling too bad otherwise. No other c/o today. 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 She now presents to emergency with frequent diarrhea, weakness, and low grade fever 100. Review of Systems All systems: negative Constitutional: Reports as per HPI Past Medical History Past Medical History: Atrial Fibrillation, Cancer, GERD/Reflux, Hyperlipidemia, Hypertension, Memory Impairment, Osteoarthritis (OA), Renal Disease Additional Past Medical History / Comment(s): Hx of anemia, sepsis, Breast Cancer 09/2016, 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 Mild memory changes. upper denture, lower dental implants. perineal/pelvic pain, freq uti, currently resistant to outpatient AB Rx. History of Any Multi-Drug Resistant Organisms: MRSA, Other MDRO Year Discovered:: 06/21/18 MDRO Source:: MRSA CHEST Past Surgical History: Bowel Resection, Breast Surgery, Heart Catheterization, Orthopedic Surgery, Tubal Ligation Additional Past Surgical History / Comment(s): R rotator cuff repair. Bilateral mastectomy 09/22, had failed reconstruction. May 2018 had excision rt and lt reconstructred breast/chest wall deformities. bowel resection 10/2016, heart cath 12/13/17, tiff cataracts, lower dental implants. Past Anesthesia/Blood Transfusion Reactions: Previous Problems w/ Anesthesia, Postoperative Nausea & Vomiting (PONV) Additional Past Anesthesia/Blood Transfusion Reaction / Comm: PATIENT STATES HER TEETH IMPLANTS WERE DISLODGED DURING INTUBATION AND SHE SWALLOWED A TOOTH 2016. pt stated she has recieved blood transfusion in past, no reaction to it. Past Psychological History: No Psychological Hx Reported Smoking Status: Former smoker Past Alcohol Use History: None Reported Past Drug Use History: None Reported - Past Family History Mother Family Medical History: Myocardial Infarction (MD) Additional Family Medical History / Comment(s): in her 80's Father Family Medical History: Myocardial Infarction (MD) Additional Family Medical History / Comment(s): age 56 from [place] Brother(s) Family Medical History: Cancer Medications and Allergies Home Medications Medication Instructions Recorded Confirmed Type Apixaban [Eliquis] 5 mg PO BID 11/24/16 01/25/21 History Escitalopram [Lexapro] 10 mg PO DAILY 01/12/17 01/25/21 History Metoprolol Succinate (ER) [Toprol 100 mg PO DAILY 12/14/17 01/25/21 History XL] Atorvastatin Calcium [Lipitor] 10 mg PO HS 03/19/18 01/25/21 History Furosemide [Lasix] 20 mg PO DAILY 03/19/18 01/25/21 History Memantine [Namenda] 10 mg PO BID 11/28/19 01/25/21 History rOPINIRole HCL [Requip] 0.5 mg PO BID 11/28/19 01/25/21 History Anastrozole 1 mg PO DAILY 09/09/20 01/25/21 History Losartan Potassium 100 mg PO DAILY 09/09/20 01/25/21 History Ondansetron [Zofran] 4 mg PO TID PRN 09/09/20 01/25/21 History Famotidine [Pepcid] 20 mg PO DAILY tab 09/11/20 01/25/21 Rx Diphenoxylate HCl/Atropine 1 - 2 tab PO TID PRN 01/25/21 01/25/21 History [Lomotil 2.5-0.025 mg Tablet] Galantamine HBr [Galantamine ER] 16 mg PO DAILY 01/25/21 01/25/21 History Prazosin HCl 2 mg PO DAILY 01/25/21 01/25/21 History Allergies Allergy/AdvReac Type Severity Reaction Status Date / Time codeine AdvReac Reaction Verified 01/25/21 14:05 to Tylenol #3 Physical Exam Vitals: Vital Signs Temp Pulse Resp BP Pulse Ox 01/25/21 18:03 92 18 125/42 94 L 01/25/21 13:05 99.9 F H 01/25/21 12:51 98.2 F 75 18 146/64 96 Intake and Output 01/25/21 01/25/21 01/25/21 06:59 14:59 22:59 Other: Weight 72.575 kg Appears weak and ill Head: NCNNT Dry mucus membrames Lungs: Increased effort Abdomen: Tenderness to palpation Heart: Tachy, ir Ext: Trace BLE Edema Results CBC & Chem 7: 01/26/21 08:10 01/26/21 05:45 Labs: Abnormal Lab Results - Last 24 Hours (Table) 01/25/21 01/25/21 01/25/21 Range/Units 13:20 13:20 13:20 WBC 0.2 L* (3.8-10.6) k/uL RBC 3.13 L (3.80-5.40) m/uL Hgb 10.0 L (11.4-16.0) gm/dL Hct 28.8 L (34.0-46.0) % Plt Count 85 L (150-450) k/uL Sodium 132 L (137-145) mmol/L Carbon Dioxide 19 L (22-30) mmol/L Creatinine 1.05 H (0.52-1.04) mg/dL Glucose 151 H (74-99) mg/dL Plasma Lactic Acid Deion 3.7 H* (0.7-2.0) mmol/L Total Bilirubin 1.6 H (0.2-1.3) mg/dL Lipase <10 L (23-300) U/L Urine Appearance (Clear) Urine Protein (Negative) Urine Glucose (UA) (Negative) Urine Blood (Negative) Urine Bilirubin (Negative) Urine RBC (0-5) /hpf Amorphous Sediment (None) /hpf Urine Bacteria (None) /hpf Urine Mucus (None) /hpf 01/25/21 Range/Units 15:07 WBC (3.8-10.6) k/uL RBC (3.80-5.40) m/uL Hgb (11.4-16.0) gm/dL Hct (34.0-46.0) % Plt Count (150-450) k/uL Sodium (137-145) mmol/L Carbon Dioxide (22-30) mmol/L Creatinine (0.52-1.04) mg/dL Glucose (74-99) mg/dL Plasma Lactic Acid Deion (0.7-2.0) mmol/L Total Bilirubin (0.2-1.3) mg/dL Lipase (23-300) U/L Urine Appearance Cloudy H (Clear) Urine Protein 2+ H (Negative) Urine Glucose (UA) 1+ H (Negative) Urine Blood Moderate H (Negative) Urine Bilirubin 1+ H (Negative) Urine RBC 27 H (0-5) /hpf Amorphous Sediment Rare H (None) /hpf Urine Bacteria Occasional H (None) /hpf Urine Mucus Few H (None) /hpf CT scan - abdomen: report reviewed CT scan - pelvis: report reviewed Assessment and Plan (1) Neutropenic colitis Current Visit: Yes Status: Acute Code(s): D70.9 - NEUTROPENIA, UNSPECIFIED; K52.89 - OTHER SPECIFIED NONINFECTIVE GASTROENTERITIS AND COLITIS SNOMED Code(s): 046962223 (2) Thrombocytopenia Current Visit: Yes Status: Acute Code(s): D69.6 - THROMBOCYTOPENIA, UNSPECI FIED SNOMED Code(s): 242326954 (3) Normochromic anemia Current Visit: Yes Status: Acute Code(s): D64.9 - ANEMIA, UNSPECIFIED SNOMED Code(s): 72454952 (4) Bacteremia Current Visit: Yes Status: Acute Code(s): R78.81 - BACTEREMIA SNOMED Cod e(s): 8792774 (5) Bacteremia due to Klebsiella pneumoniae Current Visit: Yes Status: Acute Code(s): R78.81 - BACTEREMIA; B96.1 - KLEBSIELLA PNEUMONIAE THE CAUSE OF DISEASES CLASSD [facility] SNOMED Code(s): 003752811951 (6) Febrile neutropenia Current Visit: Yes Status: Acute Code(s): D70.9 - NEUTROPENIA, UNSPECIFIED; R50.81 - FEVER PRESENTING WITH CONDITIONS CLASSIFIED ELSEWHERE SNOMED Code(s): 087497631 Plan: Febrile Neutropenia: -Torres Cultures - Broad spectrum Antibiotics Neutropenic Colitis: - NPO - Please wait until resolution of neutropenia and symptoms prior to advancing diet - Abdominal imaging reveals inflammatory etiology Thrombocytopenia: - Hold Eliquis PLatelets 50K - NO NSAIDS (Tordol and Ibuprofen D/C's), ASA, Anticoagulation at this time Anemia: Secondary to chemo/Radiation: - Transfuse one unit PRBC today Bacteremia: - Blood Cultures POsitive for Klebsiella Pneumonae - Dr. Childs is following from [place] Urothelial Carcinoma: - Recently completed Chemotherapy - Almost completed with radiation therapy History of Breast Cancer: - COntinues on Arimidex Physician Attest: I have completed the full history and physical and agree with above dictation, dictated as a scribe.
[2021-01-26 10:42] LABS: African American GFR (CKD) 44.6 (60.0-200.0); Albumin 3.1 g/dL (3.80-4.90); Albumin/Globulin Ratio 1.82 (1.60-3.17); Anion Gap 7.5 mmol/L (4.00-12.00); BUN/Creat Ratio 20.77 Ratio (12.00-20.00); Calcium 7.7 mg/dL (8.7-10.3); Carbon Dioxide 20.5 mmol/L (21.6-31.8); Globulin 1.7 g/dL (1.6-3.3); Magnesium 1.7 mg/dL (1.5-2.4); Non-African American GFR(CKD) 38.4 (60.0-200.0); Phosphorus 3.6 mg/dL (2.4-5.1); Potassium 4.2 mmol/L (3.5-5.5); Total Bilirubin 2.8 mg/dL (0.3-1.2); Total Protein 4.8 g/dL (6.2-8.2)
[2021-01-26] MEDS: IOPAMIDOL CONTRAST (ORAL USE) VIAL PO PRN ×2 (11:16→12:33)
--- NOTE | 2021-01-26 12:42 | P.HPIM ---
History of Present Illness H&P Date: 01/26/21 Chief Complaint: Weakness, diarrhea HISTORY OF PRESENT ILLNESS This is an 80-year-old female patient of Dr. 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 Patient presented to [facility] emergency center after undergoing chemotherapy yesterday. Patient has had increasing weakness over the past couple of days as well as diarrhea. She denies any blood in her stools. Patient continues to have worsening weakness, mild mental status changes and generalized abdominal pain. No nausea or vomiting. No chest pain. No shortness of breath. No fever or chills. Patient was afebrile, heart rate 75, blood pressure 146/64, pulse ox 96% on room air. WBC 0.2. Hemoglobin 10, platelet count 85. Sodium 132, potassium 4.5, chloride 102, CO2 19, BUN 17 and creatinine 1.05. Blood sugar 151. Total bilirubin 1.6, AST 22, ALT 21, alkaline phosphatase 55. Lipase less than 1010. Lactic acid 3.7 and repeat 1.8. Troponin negative. Urinalysis cloudy, moderate blood. Coronavirus PCR not detected. Chest x-ray reveals unchanged appearance. No acute cardiopulmonary process. Patient was started on cefepime, vancomycin, adm itted to the oncology unit with consult for infectious disease and oncology. CAT scan of the abdomen and pelvis has been ordered as patient does have history of ischemic bowel. Stool specimen to be sent for C. difficile toxin and other stool studies. REVIEW OF SYSTEMS Constitutional: No fever, no chills, no night sweats. No weight change. Reports weakness, reports fatigue Reports lethargy. No daytime sleepiness. EENT: No headache. No blurred vision or double vision, no loss of vision. No loss of Hearing, no ringing in the ears, no dizziness. No nasal drainage or congestion. No epistaxis. No sore throat. Lungs: No shortness of breath, cough, no sputum production. No wheezing. Cardiovascular: No chest pain, no lower extremity edema. No palpitations. No paroxysmal nocturnal dyspnea. No orthopnea. No lightheadedness or dizziness. No syncopal episodes. Abdominal: Reports abdominal pain. No nausea, vomiting. Reportsdiarrhea. No constipation. No bloody or tarry stools.. No loss of appetite. Genitourinary: No dysuria, increased frequency, urgency. No urinary retention. Musculoskeletal: Reports myalgias. Reports muscle weakness, Reports gait dysfunction, no frequent falls. No back pain. No neck pain. Integumentary: No wounds, no lesions. No rash or pruritus. No unusual bruising. Neurologic: No aphasia. No facial droop. No change in mentation. No head injury. No headache. No paralysis. No paresthesia. Psychiatric: No depression. No anxiety. No mood swings. Endocrine: No abnormal blood sugars. SOCIAL HISTORY Patient was a smoker of half a pack a day for 25 years and quit in 1984. No alcohol use, no illicit drug use. Patient lives at home alone. She is normally independent. FAMILY HISTORY Mother in her 80s from myocardial infarction. Father at age 56 from myocardial infarction. Unable to obtain further detail from the patient. PHYSICAL EXAMINATION Gen: This is an 80-year-old female. Patient is resting in bed. She is slightly confused. HEENT: Head is atraumatic, normocephalic. Pupils equal, round. Sclerae is an icteric. NECK: Supple. No JVD. No lymphadenopathy. No thyromegaly. LUNGS: Clear to auscultation. No wheezes or rhonchi. No intercostal retractions. HEART: Irregular rate and rhythm. No murmur. ABDOMEN: Soft. Bowel sounds are present. No masses. Mild generalized tenderness. EXTREMITIES: No pedal edema. No calf tenderness. Dorsalis pedis palpable bilaterally. NEUROLOGICAL: Patient is awake, alert and oriented to person and place. Cranial nerves 2 through 12 are grossly intact. Generalized weakness noted. ASSESSMENT AND PLAN 1. Neutropenic sepsis. Patient is on cefepime and vancomycin. Stool specimen to be sent for C. diff and culture, oncology consult, infectious disease consult, blood cultures. 2. Klebsiella pneumoniae bacteremia from preliminary report. Continue current antibiotics. Consult with infectious disease. 3. Abdominal pain and diarrhea on the rule out ischemic bowel. CAT scan of the abdomen and pelvis with contrast. Continue Questran 4 g twice daily, Lomotil 3 times daily as needed. 4. Pancytopenia secondary to bladder cancer and chemotherapy. Patient has been started on Zarxio oncology. 5. Dehydration secondary to diarrhea. Continue IV fluids 0.9 normal saline at 75 mL per hour. 6. Bladder cancer receiving chemotherapy. Oncology consult appreciated. 7. Infectious encephalopathy. Continue above treatment. 8. Lactic acidosis secondary to sepsis. Continue protocol. 9. Hypertension. Continue losartan 100 mg daily, Minipress 2 mg daily 10. Hyperlipidemia. Continue Lipitor 10 mg at bedtime. 11. Paroxysmal atrial fibrillation. Continue Toprol-XL 100 mg daily, eliquis on hold due to thrombocytopenia. 12. History of breast cancer. Continue Arimidex 1 mg daily. 13. Gastroesophageal reflux disease and GI prophylaxis. Continue famotidine 20 mg daily. 14. Mild dementia. Continue Aricept 10 mg daily and Namenda 10 mg twice daily 15. Restless leg syndrome. Continue Requip 0.5 mg twice daily. 16. COVID-19 testing negative. Patient has been hospitalized during a pandemic. Patient will be admitted to the hospital for a minimum of 2 night stay. DISCHARGE PLAN TBD. Likely return home. PT and OT consults added. Impression and plan of care have been directed as dictated by the signing physician. Mayi Lindsay nurse practitioner acting as scribe for signing p osvaldo. 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 Mild memory changes. upper denture, lower dental implants. perineal/pelvic pain, freq uti, currently resistant to outpatient AB Rx. History of Any Multi-Drug Resistant Organisms: MRSA, Other MDRO Date of last positivie culture/infection: 06/21/18 MDRO Source:: MRSA CHEST Past Surgical History: Bowel Resection, Breast Surgery, Heart Catheterization, Orthopedic Surgery, Tubal Ligation Additional Past Surgical History / Comment(s): R rotator cuff repair. Bilateral mastectomy 09/22, had failed reconstruction. May 2018 had excision rt and lt reconstructred breast/chest wall deformities. bowel resection 10/2016, heart cath 12/13/17, tiff cataracts, lower dental implants. Past Anesthesia/Blood Transfusion Reactions: Previous Problems w/ Anesthesia, Postoperative Nausea & Vomiting (PONV) Additional Past Anesthesia/Blood Transfusion Reaction / Comment(s): PATIENT STATES HER TEETH IMPLANTS WERE DISLODGED DURING INTUBATION AND SHE SWALLOWED A TOOTH 2016. pt stated she has recieved blood transfusion in past, no reaction to it. Past Psychological History: No Psychological Hx Reported Smoking Status: Former smoker Past Alcohol Use History: None Reported Past Drug Use History: None Reported - Past Family History Mother Family Medical History: Myocardial Infarction (PR) Additional Family Medical History / Comment(s): in her 80's Father Family Medical History: Myocardial Infarction (PR) Additional Family Medical History / Comment(s): age 56 from mi Brother(s) Family Medical History: Cancer Medications and Allergies Home Medications Medication Instructions Recorded Confirmed Type Apixaban [Eliquis] 5 mg PO BID 11/24/16 01/25/21 History Escitalopram [Lexapro] 10 mg PO DAILY 01/12/17 01/25/21 History Metoprolol Succinate (ER) [Toprol 100 mg PO DAILY 12/14/17 01/25/21 History XL] Atorvastatin Calcium [Lipitor] 10 mg PO HS 03/19/18 01/25/21 History Furosemide [Lasix] 20 mg PO DAILY 03/19/18 01/25/21 History Memantine [Namenda] 10 mg PO BID 11/28/19 01/25/21 History rOPINIRole HCL [Requip] 0.5 mg PO BID 11/28/19 01/25/21 History Anastrozole 1 mg PO DAILY 09/09/20 01/25/21 History Losartan Potassium 100 mg PO DAILY 09/09/20 01/25/21 History Ondansetron [Zofran] 4 mg PO TID PRN 09/09/20 01/25/21 History Famotidine [Pepcid] 20 mg PO DAILY tab 09/11/20 01/25/21 Rx Diphenoxylate HCl/Atropine 1 - 2 tab PO TID PRN 01/25/21 01/25/21 History [Lomotil 2.5-0.025 mg Tablet] Galantamine HBr [Galantamine ER] 16 mg PO DAILY 01/25/21 01/25/21 History Prazosin HCl 2 mg PO DAILY 01/25/21 01/25/21 History Allergies Allergy/AdvReac Type Severity Reaction Status Date / Time codeine AdvReac Reaction Verified 01/25/21 14:05 to Tylenol #3 Physical Exam Vitals: Vital Signs Temp Pulse Pulse Resp BP BP Pulse Ox 01/26/21 04:58 99.6 F 104 H 127/73 99 01/25/21 22:46 98.9 F 117 H 107/59 98 01/25/21 20:28 100 19 129/59 97 01/25/21 18:03 92 18 125/42 94 L 01/25/21 13:05 99.9 F H 01/25/21 12:51 98.2 F 75 18 146/64 96 Intake and Output 01/25/21 01/26/21 01/26/21 22:59 06:59 14:59 Intake Total 1080 Balance 1080 Intake: Intake, IV Titration 600 Amount Sodium Chloride 0.9% 1, 600 000 ml @ 75 mls/hr IV . [id number] ONE Rx#:[id number] Oral 480 Other: Voiding Method Bedside Commode Bedpan Bedpan # Voids 1 Weight 72.575 kg Results CBC & Chem 7: 01/26/21 08:10 01/26/21 05:45 Labs: Abnormal Lab Results - Last 24 Hours (Table) 01/25/21 01/25/21 01/25/21 Range/Units 13:20 13:20 13:20 WBC 0.2 L* (3.8-10.6) k/uL RBC 3.13 L (3.80-5.40) m/uL Hgb 10.0 L (11.4-16.0) gm/dL Hct 28.8 L (34.0-46.0) % Plt Count 85 L (150-450) k/uL Neutrophils # (1.3-7.7) k/uL Lymphocytes # (1.0-4.8) k/uL PT (9.0-12.0) sec INR (<1.2) APTT (22.0-30.0) sec Sodium 132 L (137-145) mmol/L Carbon Dioxide 19 L (22-30) mmol/L Creatinine 1.05 H (0.52-1.04) mg/dL Glucose 151 H (74-99) mg/dL Plasma Lactic Acid Deion 3.7 H* (0.7-2.0) mmol/L Total Bilirubin 1.6 H (0.2-1.3) mg/dL Lipase <10 L (23-300) U/L Urine Appearance (Clear) Urine Protein (Negative) Urine Glucose (UA) (Negative) Urine Blood (Negative) Urine Bilirubin (Negative) Urine RBC (0-5) /hpf Amorphous Sediment (None) /hpf Urine Bacteria (None) /hpf Urine Mucus (None) /hpf Crossmatch 01/25/21 01/25/21 01/26/21 Range/Units 15:07 15:23 05:45 WBC 0.1 L* (3.8-10.6) k/uL RBC 2.19 L (3.80-5.40) m/uL Hgb 6.8 L* D (11.4-16.0) gm/dL Hct 20.4 L (34.0-46.0) % Plt Count 50 L (150-450) k/uL Neutrophils # 0.1 L* (1.3-7.7) k/uL Lymphocytes # 0.0 L (1.0-4.8) k/uL PT (9.0-12.0) sec INR (<1.2) APTT (22.0-30.0) sec Sodium (137-145) mmol/L Carbon Dioxide (22-30) mmol/L Creatinine (0.52-1.04) mg/dL Glucose (74-99) mg/dL Plasma Lactic Acid Deion (0.7-2.0) mmol/L Total Bilirubin (0.2-1.3) mg/dL Lipase (23-300) U/L Urine Appearance Cloudy H (Clear) Urine Protein 2+ H (Negative) Urine Glucose (UA) 1+ H (Negative) Urine Blood Moderate H (Negative) Urine Bilirubin 1+ H (Negative) Urine RBC 27 H (0-5) /hpf Amorphous Sediment Rare H (None) /hpf Urine Bacteria Occasional H (None) /hpf Urine Mucus Few H (None) /hpf Crossmatch See Detail 01/26/21 01/26/21 Range/Units 05:45 08:10 WBC 0.1 L* (3.8-10.6) k/uL RBC 2.07 L (3.80-5.40) m/uL Hgb 6.4 L* (11.4-16.0) gm/dL Hct 19.4 L* (34.0-46.0) % Plt Count (150-450) k/uL Neutrophils # (1.3-7.7) k/uL Lymphocytes # (1.0-4.8) k/uL PT 13.0 H (9.0-12.0) sec INR 1.3 H (<1.2) APTT 31.7 H (22.0-30.0) sec Sodium (137-145) mmol/L Carbon Dioxide (22-30) mmol/L Creatinine (0.52-1.04) mg/dL Glucose (74-99) mg/dL Plasma Lactic Acid Deion (0.7-2.0) mmol/L Total Bilirubin (0.2-1.3) mg/dL Lipase (23-300) U/L Urine Appearance (Clear) Urine Protein (Negative) Urine Glucose (UA) (Negative) Urine Blood (Negative) Urine Bilirubin (Negative) Urine RBC (0-5) /hpf Amorphous Sediment (None) /hpf Urine Bacteria (None) /hpf Urine Mucus (None) /hpf Crossmatch Microbiology - Last 24 Hours (Table) 01/25/21 16:07 Blood Culture - Final Blood Thrombosis Risk Factor Assmnt - Choose All That Apply Other Risk Factors: Yes Each Risk Factor Represents 3 Points: Age 75 years or older Thrombosis Risk Factor Assessment Total Risk Factor Score: 3 Thrombosis Risk Factor Assessment Level: Moderate Risk
[2021-01-26 12:59] LABS: Anisocytosis (M) Present; Poikilocytosis (M) Present
[2021-01-26] MEDS ORDERED: KETOROLAC 15 MG/ML 1 ML VIAL IVP SCH (13:15)
--- NOTE | 2021-01-26 13:46 | CT ---
EXAMINATION TYPE: CT abdomen pelvis w con DATE OF EXAM: 01/26/2021 HISTORY: Abdominal pain with diarrhea, history of bladder and breast cancer. CT DLP: 1594.7mGycm Automated Exposure Control for Dose Reduction was Utilized. CONTRAST: CT scan of the abdomen and pelvis is performed with oral and with IV Contrast, patient injected with 100 mL of Isovue 300. COMPARISON: Prior PET/CT December 17, 2020. Most recent CT abdomen and pelvis study September 09, 2020. FINDINGS: LUNG BASES: [id number] scattered fibrotic and atelectatic changes in both bases is redemonstrat ed. Tiny bilateral pleural effusions on current study. Right coronary artery stent and/or calcificati on again seen. Calcification at level mitral valve redemonstrated. Slightly elevated left hemidiaphra gm redemonstrated. Stable mild cardiomegaly. LIVER/GB: Stable small intraluminal gallstone on image 27. PANCREAS: No significant abnormality is seen. SPLEEN: No significant abnormality is seen. ADRENALS: No significant abnormality is seen. KIDNEYS: There is simple appearing 2.2 .3 cm thin-walled cyst anteriorly upper pole left kidney axial image 26 series 5 redemonstrated. No renal stones or hydronephrosis identified on current study. No intraluminal calculi in poorly distended bladder. Scattered bilateral pelvic phleboliths redemonstrat ed. Renal sizes are stable and within normal limits. BOWEL: Low-lying cecum into the right pelvis redemonstrated. Oral contrast reaches level of the rectu m. No suspicious small or large bowel dilatation. There is new severe concentric wall thickening in t he distal ileum extending through the terminal ileum over roughly 15 cm segment in the pelvis. There is moderate to severe wall thickening in the right colon extending contiguously through the transvers e and left colon extending contiguously into the sigmoid colon with relative sparing of the distal si gmoid colon and rectum. There is additional small bowel loop in the left lower quadrant and upper pel vis that has focal moderate concentric wall thickening. There is mild to moderate mesenteric fluid an d fat stranding in the upper pelvis noted. No free air is seen. No new mesenteric air identified. Inc idental small duodenal diverticulum axial image 30 in the second portion redemonstrated. GENITAL ORGANS: Anteverted uterus redemonstrated. Normal-sized ovaries in the pelvis. LYMPH NODES: No new greater than 1cm abdominal or pelvic lymph nodes are appreciated. OSSEOUS STRUCTURES: Moderate disc space narrowing and right lateral spurring L5-S1 level redemonstrat ed. Moderate disc space narrowing with endplate sclerosis T12-L1 level redemonstrated. Multilevel fac et arthropathy mid to lower lumbar spine redemonstrated. Moderate axial joint space loss both hips ag ain seen. OTHER: Moderate calcified plaque of the aorta extends into branch vessels. IMPRESSION: New multifocal severe enterocolitis, differential includes inflammatory, infectious, and ischemic etiologies. Correlate clinically.
[2021-01-26] MEDS: VANCOMYCIN 1,250 MG in SODIUM CHLORIDE 0.9% 250 ML IVPB SCH (16:08)
[2021-01-26] MEDS: FILGRASTIM-SNDZ 480 MCG/0.8 ML SYRINGE SQ SCH (18:15)
[2021-01-26] MEDS: CHOLESTYRAMINE (WITH SUGAR) 4 GM PACKET PO SCH (18:16)
[2021-01-26] MEDS: ATORVASTATIN 10 MG TAB PO SCH (21:02)
[2021-01-26] MEDS: metroNIDAZOLE-NS PMX 500 MG in SALINE 1 100ML.BAG IVPB SCH (23:53)
[2021-01-27 06:33] LABS: D-Dimer 3.22 mg/L FEU (<0.60); INR 1.1 (<1.2); Partial Thromboplastin Time 29.4 sec (22.0-30.0); Prothrombin Time 11.7 sec (9.0-12.0)
[2021-01-27 06:41] LABS: HGB 6.4 gm/dL (11.4-16.0); MCH 31.8 pg (25.0-35.0); MCHC 34.5 g/dL (31.0-37.0); MCV 92.3 fL (80.0-100.0); Mean Platelet Volume 8.9; RBC 2.02 m/uL (3.80-5.40); RDW 13.3 % (11.5-15.5); WBC 0.1 k/uL (3.8-10.6)
[2021-01-27 06:42] LABS: HCT 18.7 % (34.0-46.0); Platelet Count 28 k/uL (150-450)
[2021-01-27 06:50] LABS: Anisocytosis (M) Present
[2021-01-27] MEDS: metroNIDAZOLE-NS PMX 500 MG in SALINE 1 100ML.BAG IVPB SCH ×3 (07:25→23:55)
--- NOTE | 2021-01-27 07:44 | CONS ---
CONSULTATION DATE OF SERVICE: 01/26/2021 REASON FOR CONSULTATION: Febrile neutropenia. HISTORY OF PRESENT ILLNESS: The patient is an 80-year-old female with past medical history significant for ischemic colitis status post hemicolectomy, history of breast cancer status post mastectomy and bladder cancer for which the patient is currently undergoing chemotherapy. The patient presented to [facility] ER yesterday for evaluation of generalized weakness and mental status changes. The patient was complaining of abdominal pain, which apparently started the day she presented to the hospital. The patient's abdominal pain is mostly diffused in intensity, moderate with no radiation. No associated nausea, vomiting or diarrhea. The patient did have some chills. With these symptoms, the patient presented to hospital. On arrival to the ER the patient did have a low-grade fever of 99.9. The patient was noticed to be leukopenic as well with neutropenic. The patient did have a of creatinine 1.3. Liver enzymes have been normal. The patient did have stool for C difficile which came back negative. Blood cultures obtained now showing Gram-negative bacilli. The patient did have a CT of abdomen and pelvis completed which did show some new multifocal severe enterocolitis and differential includes inflammatory infectious and ischemic etiologies. The patient has been treated with cefepime and vancomycin. Infectious Disease was consulted for further management of antibiotic therapy. REVIEW OF SYSTEMS: Positive points have been mentioned in HPI. Rest of systems are negative. PAST MEDICAL HISTORY: Atrial fibrillation, hyperlipidemia, hypertension, osteoarthritis, history of breast cancer, ischemic colitis and bladder cancer. PAST SURGICAL HISTORY: Bowel resection, bilateral mastectomy, heart catheterization, rotator cuff repair, tubal ligation. SOCIAL HISTORY: Remote history of smoking. No drinking or drug use. FAMILY HISTORY: Mother with history of ID. Father with history of ID. ALLERGIES: CODEINE. MEDICATIONS: The patient is currently on cefepime 2 grams q.12, the patient is on vancomycin, Pharmacy to dose, Tylenol, Arimidex, Lipitor, Questran, Lomotil, Aricept, Lexapro, Pepcid, Zaroxolyn, Cozaar, Toprol-XL, Zofran, Requip. PHYSICAL EXAMINATION: VITAL SIGNS: Blood pressure 114/68 with a pulse of 70, temperature 98.4, she is 99% on 2 L nasal cannula. GENERAL DESCRIPTION: Patient is an elderly female lying in bed in no distress. No tachypnea or accessory muscles of respiration use. HEENT: Examination shows pallor, no scleral icterus. Oral mucous membrane is dry. No pharyngeal erythema or thrush. NECK: Trachea central, no thyromegaly. LUNGS: Unlabored breathing, decreased intensity of breath sounds, no wheezes or crackles. HEART: S1-S2, regular rate and rhythm. ABDOMEN: Soft. Patient did have slight distention and tenderness and minimal guarding. EXTREMITIES: No edema of the feet. SKIN: No rash or mass palpable. NEUROLOGICAL: Patient is awake, alert, oriented times three. Mood and affect normal. LABS: Hemoglobin 6.4, white count 0.1, BUN of 27, creatinine 1.3. CT of abdomen and pelvis report as mentioned above. DIAGNOSTIC IMPRESSION: Patient with febrile neutropenia, now with evidence of Gram-negative bacteremia, source is likely abdominal with concern for possible ischemic versus infectious colitis with significant neutropenia. Typhilitis will be likely consideration, especially with involvement of the terminal ileum and associated area. PLAN: 1. Discontinue the vancomycin. 2. We will increase the dose of cefepime to 2 grams q.8 hours. 3. Add Flagyl 500 mg q.8 hours. 4. IV fluid. 5. Surgery evaluation. 6. We will follow on clinical condition and culture to further adjust medication if needed. Thank you for this consultation. Will follow this patient along with you. MMODL / IJN: [id number] /
[2021-01-27] MEDS: CEFEPIME 2 GM in SODIUM CHLORIDE 0.9% 100 ML IVPB SCH ×3 (08:33→23:54)
[2021-01-27] MEDS: CHOLESTYRAMINE (WITH SUGAR) 4 GM PACKET PO SCH ×2 (09:18→18:31)
[2021-01-27] MEDS: FAMOTIDINE 20 MG TAB PO SCH (09:18)
[2021-01-27] MEDS: METOPROLOL SUCCINATE (ER) 100 MG TAB.ER.24H PO SCH (09:18)
[2021-01-27] MEDS: PRAZOSIN 1 MG CAP PO SCH (09:18)
[2021-01-27] MEDS: LOSARTAN 50 MG TAB PO SCH (09:18)
[2021-01-27] MEDS: ESCITALOPRAM 10 MG TAB PO SCH (09:18)
[2021-01-27] MEDS: ANASTROZOLE 1 MG TAB PO SCH (09:19)
[2021-01-27] MEDS: MEMANTINE 10 MG TAB PO SCH ×2 (09:19→20:17)
[2021-01-27] MEDS: DONEPEZIL 10 MG TAB PO SCH (09:25)
[2021-01-27 11:13] LABS: Folate, Serum 3.9 ng/mL
[2021-01-27 11:28] LABS: African American GFR (CKD) 54.5 (60.0-200.0); Albumin 2.8 g/dL (3.80-4.90); Albumin/Globulin Ratio 1.75 (1.60-3.17); Anion Gap 9.1 mmol/L (4.00-12.00); BUN/Creat Ratio 28.18 Ratio (12.00-20.00); Calcium 7.4 mg/dL (8.7-10.3); Carbon Dioxide 18.9 mmol/L (21.6-31.8); Globulin 1.6 g/dL (1.6-3.3); Magnesium 1.9 mg/dL (1.5-2.4); Potassium 3.2 mmol/L (3.5-5.5); Total Bilirubin 0.9 mg/dL (0.2-1.2); Total Protein 4.4 g/dL (6.2-8.2)
[2021-01-27] MEDS: MORPHINE SULFATE 2 MG/ML SYRINGE IVP PRN (13:55)
[2021-01-27] MEDS ORDERED: POTASSIUM CHLORIDE ER 20 MEQ TAB.ER PO STA (15:54)
--- NOTE | 2021-01-27 15:58 | P.PN ---
Subjective Progress Note Date: 01/27/21 This is an 80-year-old female patient of Dr. 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 Patient presented to [facility] emergency center after undergoing chemotherapy yesterday. Patient has had increasing weakness over the past couple of days as well as diarrhea. She denies any blood in her stools. Patient continues to have worsening weakness, mild mental status changes and generalized abdominal pain. No nausea or vomiting. No chest pain. No shortness of breath. No fever or chills. Patient was afebrile, heart rate 75, blood pressure 146/64, pulse ox 96% on room air. WBC 0.2. Hemoglobin 10, platelet count 85. Sodium 132, potassium 4.5, chloride 102, CO2 19, BUN 17 and creatinine 1.05. Blood sugar 151. Total bilirubin 1.6, AST 22, ALT 21, alkaline phosphatase 55. Lipase less than 1010. Lactic acid 3.7 and repeat 1.8. Troponin negative. Urinalysis cloudy, moderate blood. Coronavirus PCR not detected. Chest x-ray reveals unchanged appearance. No acute cardiopulmonary process. Patient was started on cefepime, vancomycin, admitted to the oncology unit with consult for infectious disease and oncology. CAT scan of the abdomen and pelvis has been ordered as patient does have history of ischemic bowel. Stool specimen to be sent for C. difficile toxin and other stool studies. 01/27 patient examined bedside. Is much alert and answering questions appropriately. Diarrhea has improved. Fecal occult was negative for blood. C. diff is negative. Fresh patient continues to have significant tenderness in the abdomen. CT abdomen is positive for severe enterocolitis. Infectious disease recommended switching antibiotics to cefepime and Flagyl. Oncology evaluated the patient and initiated patient on filgrastim daily. GI consult placed to rule out IBD. yersenia stool cultures, lactoferrin, CALPROTECTIN levels ordered. Continue to remain an nothing by mouth diet. Status post 1 unit PRBC today as patient's hemoglobin remains low at 6.4, WBC remains a 0.1, platelet 2815 was in 19 5 d-dimer 3.22, potassium 3.2 chloride 110 bicarb 18.9. We'll replete patient's potassium. Start patient on D5NS at 75 mL per hour as patient remains nothing by mouth. REVIEW OF SYSTEMS Constitutional: No fever, no chills, no night sweats. No weight change. Reports weakness, reports fatigue Reports lethargy. No daytime sleepiness. EENT: No headache. No blurred vision or double vision, no loss of vision. No loss of Hearing, no ringing in the ears, no dizziness. No nasal drainage or congestion. No epistaxis. No sore throat. Lungs: No shortness of breath, cough, no sputum production. No wheezing. Cardiovascular: No chest pain, no lower extremity edema. No palpitations. No paroxysmal nocturnal dyspnea. No orthopnea. No lightheadedness or dizziness. No syncopal episodes. Abdominal: Reports abdominal pain. No nausea, vomiting. Reports diarrhea improved. No constipation. No bloody or tarry stools.. No loss of appetite. Genitourinary: No dysuria, increased frequency, urgency. No urinary retention. Musculoskeletal: Reports myalgias. Reports muscle weakness, Reports gait dysfunction, no frequent falls. No back pain. No neck pain. Integumentary: No wounds, no lesions. No rash or pruritus. No unusual bruising. Neurologic: No aphasia. No facial droop. No change in mentation. No head injury. No headache. No paralysis. No paresthesia. Psychiatric: No depression. No anxiety. No mood swings. Endocrine: No abnormal blood sugars. Objective - Vital Signs Vital signs: Vital Signs Temp 97.9 F 01/27/21 11:49 Pulse 78 01/27/21 11:49 Resp 20 01/27/21 11:49 BP 112/70 01/27/21 11:49 Pulse Ox 100 01/27/21 11:49 Intake & Output 01/26/21 01/27/21 01/27/21 18:59 06:59 18:59 Intake Total 1210 500 310 Output Total 3 3 Balance 1207 497 310 Intake: Intake, IV Titration 900 500 Amount Cefepime 2 gm In Sodium 100 Chloride 0.9% 100 ml @ 25 mls/hr IVPB Q8H [facility] Rx#: [id number] Sodium Chloride 0.9% 1, 900 300 000 ml @ 75 mls/hr IV . [id number] [facility] Rx#:[id number] metroNIDAZOLE-NS PMX 500 100 mg In Saline 1 100ml.bag @ 100 mls/hr IVPB Q8HR [facility] Rx#:[id number] Oral 0 Blood Product 310 310 Rc As-1 Unit 310 [id number] Rc As-1 Unit 310 [id number] Output: Stool 3 Urine/Stool Mix 3 Other: Voiding Method Bedpan Incontinent Bedpan Diaper # Voids 2 # Bowel Movements 1 - Exam PHYSICAL EXAMINATION Gen: This is an 80-year-old female. Patient is resting in bed. She is slightly confused. HEENT: Head is atraumatic, normocephalic. Pupils equal, round. Sclerae is anicteric. NECK: Supple. No JVD. No lymphadenopathy. No thyromegaly. LUNGS: Clear to auscultation. No wheezes or rhonchi. No intercostal retractions. HEART: Irregular rate and rhythm. No murmur. ABDOMEN: Soft. Bowel sounds are present. No masses. Mild generalized tendern ess. EXTREMITIES: No pedal edema. No calf tenderness. Dorsalis pedis palpable bilaterally. NEUROLOGICAL: Patient is awake, alert and oriented to person and place. Cranial nerves 2 through 12 are grossly intact. Generalized weakness noted. - Labs CBC & Chem 7: 01/27/21 05:40 01/27/21 05:40 Labs: Abnormal Lab Results - Last 24 Hours (Table) 01/25/21 01/26/21 01/27/21 Range/Units 15:23 17:25 05:40 WBC 0.1 L* (3.8-10.6) k/uL RBC 2.02 L (3.80-5.40) m/uL Hgb 6.4 L* (11.4-16.0) gm/dL Hct 18.7 L* (34.0-46.0) % Plt Count 28 L (150-450) k/uL Fibrinogen 897 H (200-500) mg/dL D-Dimer (<0.60) mg/L FEU Potassium (3.5-5.5) mmol/L Chloride (96-109) mmol/L Carbon Dioxide (21.6-31.8) mmol/L BUN (9.0-27.0) mg/dL Est GFR (CKD-EPI)AfAm (60.0-200.0) Est GFR (CKD-EPI)NonAf (60.0-200.0) BUN/Creatinine Ratio (12.00-20.00) Ratio Calcium (8.7-10.3) mg/dL Total Protein (6.2-8.2) g/dL Albumin (3.80-4.90) g/dL Crossmatch See Detail 01/27/21 01/27/21 Range/Units 05:40 05:40 WBC (3.8-10.6) k/uL RBC (3.80-5.40) m/uL Hgb (11.4-16.0) gm/dL Hct (34.0-46.0) % Plt Count (150-450) k/uL Fibrinogen 935 H (200-500) mg/dL D-Dimer 3.22 H (<0.60) mg/L FEU Potassium 3.2 L (3.5-5.5) mmol/L Chloride 110 H (96-109) mmol/L Carbon Dioxide 18.9 L (21.6-31.8) mmol/L BUN 31.0 H (9.0-27.0) mg/dL Est GFR (CKD-EPI)AfAm 54.5 L (60.0-200.0) Est GFR (CKD-EPI)NonAf 47.0 L (60.0-200.0) BUN/Creatinine Ratio 28.18 H (12.00-20.00) Ratio Calcium 7.4 L (8.7-10.3) mg/dL Total Protein 4.4 L (6.2-8.2) g/dL Albumin 2.80 L (3.80-4.90) g/dL Crossmatch Microbiology - Last 24 Hours (Table) 01/25/21 13:10 Stool Culture - Preliminary Stool 01/25/21 16:07 Blood Culture Gram Stain - Preliminary Blood Blood Culture - Preliminary Klebsiella pneumoniae Assessment and Plan Plan: ASSESSMENT AND PLAN 1. Neutropenic sepsis. Patient is on cefepime and Flagyl. C. diff discontinued by infectious disease. C. diff negative and culture, oncology consult, infectious disease consult, blood cultures. 2. Klebsiella pneumoniae bacteremia from preliminary report. Continue current antibiotics. Consult with infectious disease. 3. Abdominal pain and diarrhea secondary to severe enterocolitis rule out IBD fecal occult negative CAT scan of the abdomen and pelvis with contrast. Continue Questran 4 g twice daily, Lomotil 3 times daily as needed. 4. Pancytopenia secondary to bladder cancer and chemotherapy. Patient has been started on Zarxio oncology. 5. Dehydration secondary to diarrhea. Continue IV fluids DEXTROSE 0.9 normal saline at 75 mL per hour. 6. Bladder cancer receiving chemotherapy. Oncology consult appreciated. 7. Infectious encephalopathy. Improved Continue above treatment. 8. Lactic acidosis secondary to sepsis. Continue protocol. 9. Hypertension. Continue losartan 100 mg daily, Minipress 2 mg daily 10. Hyperlipidemia. Continue Lipitor 10 mg at bedtime. 11. Paroxysmal atrial fibrillation. Continue Toprol-XL 100 mg daily, eliquis on hold due to thrombocytopenia. 12. History of breast cancer. Continue Arimidex 1 mg daily. 13. Gastroesophageal reflux disease and GI prophylaxis. Continue famotidine 20 mg daily. 14. Mild dementia. Continue Aricept 10 mg daily and Namenda 10 mg twice daily 15. Restless leg syndrome. Continue Requip 0.5 mg twice daily. 16. COVID-19 testing negative. Patient has been hospitalized during a pandemic. DISCHARGE PLAN TBD. Likely return home. PT and OT consults added.
[2021-01-27] MEDS ORDERED: DIPHENOX-ATROP 2.5-0.025 MG 1 EACH TAB PO SCH (16:00)
[2021-01-27] MEDS: DIPHENOX-ATROP 2.5-0.025 MG 1 EACH TAB PO PRN (16:04)
--- NOTE | 2021-01-27 16:35 | PN ---
PROGRESS NOTE DATE OF SERVICE: 01/27/2021 REASON FOR FOLLOWUP: Klebsiella pneumoniae bacteremia secondary to enteritis/colitis. INTERVAL HISTORY: The patient is afebrile. The patient is slightly more awake and alert today. She is breathing comfortably. Complaining of abdominal pain though has decreased intensity. No chest pain, shortness of breath or cough. PHYSICAL EXAMINATION: Blood pressure 112/70 with a pulse of 78, temperature is 97.9. She is 100% on 3 L nasal cannula. General description is an elderly female lying in bed in no distress. RESPIRATORY SYSTEM: Unlabored breathing, clear to auscultation anteriorly. HEART: S1, S2. Regular rate and rhythm. ABDOMEN: Soft, mildly tender. No guarding or rigidity. LABS: Hemoglobin 6.4, white count 0.1, BUN of 31, creatinine 1.1. DIAGNOSTIC IMPRESSION AND PLAN: Patient with Klebsiella pneumoniae bacteremia. Source is likely abdominal with evidence of enteritis and colitis. The patient is covered cefepime and Flagyl to continue while monitor clinical course closely. Continue supportive care. MMODL / IJN: [id number] /
[2021-01-27 17:45] LABS: ALT 17 U/L (4-34); AST 18 U/L (14-36); African American GFR (CKD) 62 (>60 ml/min/1.73 sqM); Albumin 2.4 g/dL (3.5-5.0); Alkaline Phosphatase 53 U/L (38-126); Anion Gap 7 mmol/L; Blood Urea Nitrogen 26 mg/dL (7-17); Calcium 7.8 mg/dL (8.4-10.2); Carbon Dioxide 17 mmol/L (22-30); Chloride 111 mmol/L (98-107); Globulin 2.4 g/dL; Glucose 93 mg/dL (74-99); Non-African American GFR(CKD) 53 (>60 ml/min/1.73 sqM); Potassium 3.3 mmol/L (3.5-5.1); Sodium 135 mmol/L (137-145); Total Bilirubin 0.9 mg/dL (0.2-1.3); Total Protein 4.8 g/dL (6.3-8.2)
[2021-01-27 17:55] LABS: Basophils % (A) 2 %; Eosinophils % (A) 10 %; HCT 23.6 % (34.0-46.0); HGB 7.7 gm/dL (11.4-16.0); Lymphocytes % (A) 5 %; MCH 30.3 pg (25.0-35.0); MCHC 32.6 g/dL (31.0-37.0); MCV 92.7 fL (80.0-100.0); Mean Platelet Volume 9.4; Monocytes % (A) 24 %; RBC 2.54 m/uL (3.80-5.40); RDW 14.5 % (11.5-15.5)
[2021-01-27 17:58] LABS: Neutrophils # (A) 0.1 k/uL (1.3-7.7); Platelet Count 26 k/uL (150-450)
[2021-01-27 18:00] LABS: Neutrophils % (A) 46 %
[2021-01-27 18:01] LABS: WBC 0.2 k/uL (3.8-10.6)
[2021-01-27] MEDS: FILGRASTIM-SNDZ 480 MCG/0.8 ML SYRINGE SQ SCH (18:31)
[2021-01-27] MEDS: D5-0.9% NACL WITH KCL 20 MEQ/L 1,000 ML IV SCH (19:44)
[2021-01-27] MEDS: ACETAMINOPHEN TAB 325 MG TAB PO PRN (20:17)
[2021-01-27] MEDS: ATORVASTATIN 10 MG TAB PO SCH (20:18)
--- NOTE | 2021-01-27 20:24 | P.PN ---
Subjective Progress Note Date: 01/27/21 Principal diagnosis: Bacteremia and DIarrhea and neutropenia Still Weak and ill. Hemoglobin 6.4, PRBC ordered. Klebsiella positive blood cultures, ID following and IV antibiotics continue. Growth factor continued as she is still neutropenia. Abdomen is diffusely tender and remains NPO Objective - Vital Signs Vital signs: Vital Signs Temp 97.9 F 01/27/21 11:49 Pulse 78 01/27/21 11:49 Resp 20 01/27/21 11:49 BP 112/70 01/27/21 11:49 Pulse Ox 100 01/27/21 11:49 Intake & Output 01/27/21 01/27/21 01/28/21 06:59 18:59 06:59 Intake Total 500 310 Output Total 3 Balance 497 310 Intake: Intake, IV Titration 500 Amount Cefepime 2 gm In Sodium 100 Chloride 0.9% 100 ml @ 25 mls/hr IVPB Q8H [facility] Rx#: [id number] Sodium Chloride 0.9% 1, 300 000 ml @ 75 mls/hr IV . [id number] [facility] Rx#:[id number] metroNIDAZOLE-NS PMX 500 100 mg In Saline 1 100ml.bag @ 100 mls/hr IVPB Q8HR [facility] Rx#:[id number] Oral 0 Blood Product 310 Rc As-1 Unit 310 [id number] Output: Urine/Stool Mix 3 Other: Voiding Method Incontinent Bedpan Diaper # Voids 2 1 # Bowel Movements 1 1 - Exam Appears weak and ill Head: NCNNT Dry mucus membrames Lungs: Increased effort Abdomen: Tenderness to palpation Heart: Tachy, ir Ext: Trace BLE Edema - Labs CBC & Chem 7: 01/27/21 16:41 01/27/21 16:41 Labs: Abnormal Lab Results - Last 24 Hours (Table) 01/25/21 01/27/21 01/27/21 Range/Units 15:23 05:40 05:40 WBC 0.1 L* (3.8-10.6) k/uL RBC 2.02 L (3.80-5.40) m/uL Hgb 6.4 L* (11.4-16.0) gm/dL Hct 18.7 L* (34.0-46.0) % Plt Count 28 L (150-450) k/uL Neutrophils # (1.3-7.7) k/uL Lymphocytes # (1.0-4.8) k/uL Fibrinogen 935 H (200-500) mg/dL D-Dimer 3.22 H (<0.60) mg/L FEU Sodium (137-145) mmol/L Potassium (3.5-5.5) mmol/L Chloride (96-109) mmol/L Carbon Dioxide (21.6-31.8) mmol/L BUN (9.0-27.0) mg/dL Est GFR (CKD-EPI)AfAm (60.0-200.0) Est GFR (CKD-EPI)NonAf (60.0-200.0) BUN/Creatinine Ratio (12.00-20.00) Ratio Calcium (8.7-10.3) mg/dL Total Protein (6.2-8.2) g/dL Albumin (3.80-4.90) g/dL Crossmatch See Detail 01/27/21 01/27/21 01/27/21 Range/Units 05:40 16:41 16:41 WBC 0.2 L* (3.8-10.6) k/uL RBC 2.54 L (3.80-5.40) m/uL Hgb 7.7 L (11.4-16.0) gm/dL Hct 23.6 L (34.0-46.0) % Plt Count 26 L (150-450) k/uL Neutrophils # 0.1 L* (1.3-7.7) k/uL Lymphocytes # 0.0 L (1.0-4.8) k/uL Fibrinogen (200-500) mg/dL D-Dimer (<0.60) mg/L FEU Sodium 135 L (137-145) mmol/L Potassium 3.2 L 3.3 L (3.5-5.5) mmol/L Chloride 110 H 111 H (96-109) mmol/L Carbon Dioxide 18.9 L 17 L (21.6-31.8) mmol/L BUN 31.0 H 26 H (9.0-27.0) mg/dL Est GFR (CKD-EPI)AfAm 54.5 L (60.0-200.0) Est GFR (CKD-EPI)NonAf 47.0 L (60.0-200.0) BUN/Creatinine Ratio 28.18 H (12.00-20.00) Ratio Calcium 7.4 L 7.8 L (8.7-10.3) mg/dL Total Protein 4.4 L 4.8 L (6.2-8.2) g/dL Albumin 2.80 L 2.4 L (3.80-4.90) g/dL Crossmatch Microbiology - Last 24 Hours (Table) 01/25/21 13:10 Stool Culture - Preliminary Stool 01/25/21 16:07 Blood Culture Gram Stain - Preliminary Blood Blood Culture - Preliminary Klebsiella pneumoniae Assessment and Plan (1) Neutropenic colitis Current Visit: Yes Status: Acute Code(s): D70.9 - NEUTROPENIA, UNSPECIFIED; K52.89 - OTHER SPECIFIED NONINFECTIVE GASTROENTERITIS AND COLITIS SNOMED Code(s): 168890905 (2) Thrombocytopenia Current Visit: Yes Status: Acute Code(s): D69.6 - THROMBOCYTOPENIA, UNSPECIFIED SNOMED Code(s): 722617931 (3) Normochromic anemia Current Visit: Yes Status: Acute Code(s): D64.9 - ANEMIA, UNSPECIFIED SN OMED Code(s): 49788217 (4) Bacteremia Current Visit: Yes Status: Acute Code(s): R78.81 - BACTEREMIA SNOMED Code(s): 0102001 (5) Bacteremia due to Klebsiella pneumoniae Current Visit: Yes Status: Acute Code(s): R78.81 - BACTEREMIA; B96.1 - KLEBSIELLA PNEUMONIAE THE CAUSE OF DISEASES [facility]ASSD [facility] SNOMED Code(s): 286155730415 (6) Febrile neutropenia Current Visit: Yes Status: Acute Code(s): D70.9 - NEUTROPENIA, UNSPECIFIED; R50.81 - FEVER PRESENTING WITH CONDITIONS CLASSIFIED ELSEWHERE SNOMED Code(s): 105468771 Plan: Febrile Neutropenia: -Torres Cultures - Broad spectrum Antibiotics Neutropenic Colitis: - NPO - Please wait until resolution of neutropenia and symptoms prior to advancing diet - Abdominal imaging reveals inflammatory etiology Thrombocytopenia: - Hold Eliquis PLatelets 50K - NO NSAIDS (Tordol and Ibuprofen D/C's), ASA, Anticoagulation at this time Anemia: Secondary to chemo/Radiation: - Transfuse one unit PRBC today Bacteremia: - Blood Cultures POsitive for Klebsiella Pneumonae - Dr. Childs is following from [facility] Urothelial Carcinoma: - Recently completed Chemotherapy - Almost completed with radiation therapy History of Breast Cancer: - COntinues on Arimidex Plan: - DO NOT advance with clinical symptoms and neutropenia - PRBC today - CBC, CMP in am Physician Attest: I have completed the full history and physical and agree with above dictation, dictated as a scribe.
[2021-01-28 06:04] LABS: HCT 23.3 % (34.0-46.0); HGB 7.9 gm/dL (11.4-16.0); MCH 31.4 pg (25.0-35.0); MCHC 33.9 g/dL (31.0-37.0); MCV 92.7 fL (80.0-100.0); Mean Platelet Volume 9.5; RBC 2.52 m/uL (3.80-5.40); RDW 14.3 % (11.5-15.5)
[2021-01-28 06:05] LABS: WBC 0.2 k/uL (3.8-10.6)
[2021-01-28 06:06] LABS: Platelet Count 26 k/uL (150-450)
[2021-01-28 06:15] LABS: Prothrombin Time 10.8 sec (9.0-12.0)
--- NOTE | 2021-01-28 06:36 | P.CONS ---
History of Present Illness - Reason for Consult Consult date: 01/27/21 Enterocolitis Requesting physician: Stu Peterson - Chief Complaint Diarrhea - History of Present Illness 80-year-old female with multiple medical comorbidities including chronic anemia, hypertension, hyperlipidemia, GERD, paroxysmal atrial fibrillation, medical history significant for breast cancer status post bilateral mastectomy, prior ischemic colitis requiring hemicolectomy and subsequently reanastomosis, and current treatment of bladder cancer for which she is receiving chemotherapy who presented to the hospital due to diarrhea. The patient's reported increasing frequency of loose watery bowel movements prior to presentation. She denies any signs or symptoms of GI bleeding. She reported increasing weakness in association with her symptoms. Previously the patient has undergone endoscopic evaluation.12/22 with EGD with a small hiatal hernia and antral gastritis noted. Last colonoscopy per the patient's report was 2-3 years ago. The patient has had testing for Clostridium difficile which was negative with other stool studies pending. Computed tomography scan of the abdomen performed in evaluation showed a new multifocal severe enterocolitis with differential including inflammatory, infectious or ischemic etiology. Patient was also found to be pancytopenic on presentation and is currently receiving treatment for a neutropenic fever on broad-spectrum antibiotic therapy, and a Klebsiella urinary tract infection. Laboratory evaluation significant for WBC 0.1, hemoglobin 6.4, platelet count 28,000, total bilirubin 0.9, alkaline phosphatase 47, AST 14 and ALT 18. Review of Systems REVIEW OF SYSTEMS: CONSTITUTIONAL: Denies any chills or weight change however the patient has had fevers after presentation and had been complaining of fatigue and weakness. CARDIOVASCULAR: Denies any chest pain, palpitations high or low blood pressures, she does have a known history of atrial fibrillation. RESPIRATORY: Denies any shortness of breath, hemoptysis or cough. GENITOURINARY: No dysuria or hematuria. MUSCULOSKELETAL: No weakness reported. SKIN: Denies any new rashes or lesions, jaundice or pallor. PSYCHIATRIC: Denies any depression or anxiety. NEUROLOGY: Denies headache, denies any new focal deficits. EARS/NOSE/THROAT: No recent hearing change, congestion, nasal discharge or sore throat. EYES: No pain in eyes, discharge or change in vision. GASTROINTESTINAL: As per HPI. 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 Mild memory changes. upper denture, lower dental implants. perineal/pelvic pain, freq uti, currently resistant to outpatient AB Rx. History of Any Multi-Drug Resistant Organisms: MRSA, Other MDRO Year Discovered:: 06/21/18 MDRO Source:: MRSA CHEST Past Surgical History: Bowel Resection, Breast Surgery, Heart Catheterization, Orthopedic Surgery, Tubal Ligation Additional Past Surgical History / Comment(s): R rotator cuff repair. Bilateral mastectomy 09/22, had failed reconstruction. May 2018 had excision rt and lt reconstructred breast/chest wall deformities. bowel resection 10/2016, heart cath 12/13/17, tiff cataracts, lower dental implants. Past Anesthesia/Blood Transfusion Reactions: Previous Problems w/ Anesthesia, Postoperative Nausea & Vomiting (PONV) Additional Past Anesthesia/Blood Transfusion Reaction / Comm: PATIENT STATES HER TEETH IMPLANTS WERE DISLODGED DURING INTUBATION AND SHE SWALLOWED A TOOTH 2015. pt stated she has recieved blood transfusion in past, no reaction to it. Past Psychological History: No Psychological Hx Reported Smoking Status: Former smoker Past Alcohol Use History: None Reported Past Drug Use History: None Reported - Past Family History Mother Family Medical History: Myocardial Infarction ([place]) Additional Family Medical History / Comment(s): in her 80's Father Family Medical History: Myocardial Infarction ([place]) Additional Family Medical History / Comment(s): age 56 from [place] Brother(s) Family Medical History: Cancer Medications and Allergies Home Medications Medication Instructions Recorded Confirmed Type Apixaban [Eliquis] 5 mg PO BID 11/24/16 01/25/21 History Escitalopram [Lexapro] 10 mg PO DAILY 01/12/17 01/25/21 History Metoprolol Succinate (ER) [Toprol 100 mg PO DAILY 12/14/17 01/25/21 History XL] Atorvastatin Calcium [Lipitor] 10 mg PO HS 03/19/18 01/25/21 History Furosemide [Lasix] 20 mg PO DAILY 03/19/18 01/25/21 History Memantine [Namenda] 10 mg PO BID 11/28/19 01/25/21 History rOPINIRole HCL [Requip] 0.5 mg PO BID 11/28/19 01/25/21 History Anastrozole 1 mg PO DAILY 09/09/20 01/25/21 History Losartan Potassium 100 mg PO DAILY 09/09/20 01/25/21 History Ondansetron [Zofran] 4 mg PO TID PRN 09/09/20 01/25/21 History Famotidine [Pepcid] 20 mg PO DAILY tab 09/11/20 01/25/21 Rx Diphenoxylate HCl/Atropine 1 - 2 tab PO TID PRN 01/25/21 01/25/21 History [Lomotil 2.5-0.025 mg Tablet] Galantamine HBr [Galantamine ER] 16 mg PO DAILY 01/25/21 01/25/21 History Prazosin HCl 2 mg PO DAILY 01/25/21 01/25/21 History Allergies Allergy/AdvReac Type Severity Reaction Status Date / Time codeine AdvReac Reaction Verified 01/25/21 14:05 to Tylenol #3 Physical Exam Vitals: Vital Signs Temp Pulse Pulse Resp BP BP Pulse Ox 01/27/21 11:49 97.9 F 78 20 112/70 100 01/27/21 09:39 98.3 F 75 18 127/75 100 01/27/21 09:09 97.4 F L 81 18 126/71 100 01/27/21 08:59 97.7 F 82 18 122/72 100 01/27/21 05:00 98.5 F 81 20 123/69 100 01/26/21 19:30 98.4 F 78 20 114/68 99 01/26/21 17:09 98.5 F 73 18 108/65 100 01/26/21 15:13 98.3 F 75 18 91/57 100 01/26/21 14:43 98.2 F 74 16 96/59 100 01/26/21 14:33 98.5 F 78 18 90/56 100 Intake and Output 01/26/21 01/27/21 01/27/21 22:59 06:59 14:59 Intake Total 1210 500 310 Output Total 3 3 Balance 1207 497 310 Intake: Intake, IV Titration 900 500 Amount Cefepime 2 gm In Sodium 100 Chloride 0.9% 100 ml @ 25 mls/hr IVPB Q8H [facility] Rx#: [id number] Sodium Chloride 0.9% 1, 900 300 000 ml @ 75 mls/hr IV . [id number] ONE Rx#:[id number] metroNIDAZOLE-NS PMX 500 100 mg In Saline 1 100ml.bag @ 100 mls/hr IVPB Q8HR [facility] Rx#:[id number] Oral 0 Blood Product 310 310 Rc As-1 Unit 310 [id number] Rc As-1 Unit 310 [id number] Output: Stool 3 Urine/Stool Mix 3 Other: Voiding Method Incontinent Bedpan Diaper # Voids 2 # Bowel Movements 1 On physical examination, patient appears comfortable in no apparent distress. HEAD: Normocephalic, atraumatic. EYES: No scleral icterus. No conjunctival injection. MOUTH: No lesions, tongue midline. NECK: Trachea midline, no gross abnormalities. CHEST: Decreased air entry in all lung craven. HEART: S1-S2 appreciated. ABDOMEN: Soft, obese, mildly tender to palpation. Bowel sounds are positive. No organomegaly. No guarding or rigidity. EXTREMITIES: No pedal edema. SKIN: No rashes, no jaundice. NEUROLOGIC: Alert and oriented x3. No focal deficits. Results CBC & Chem 7: 01/28/21 05:21 01/27/21 16:41 Labs: Abnormal Lab Results - Last 24 Hours (Table) 01/25/21 01/26/21 01/27/21 Range/Units 15:23 17:25 05:40 WBC 0.1 L* (3.8-10.6) k/uL RBC 2.02 L (3.80-5.40) m/uL Hgb 6.4 L* (11.4-16.0) gm/dL Hct 18.7 L* (34.0-46.0) % Plt Count 28 L (150-450) k/uL Fibrinogen 897 H (200-500) mg/dL D-Dimer (<0.60) mg/L FEU Potassium (3.5-5.5) mmol/L Chloride (96-109) mmol/L Carbon Dioxide (21.6-31.8) mmol/L BUN (9.0-27.0) mg/dL Est GFR (CKD-EPI)AfAm (60.0-200.0) Est GFR (CKD-EPI)NonAf (60.0-200.0) BUN/Creatinine Ratio (12.00-20.00) Ratio Calcium (8.7-10.3) mg/dL Total Protein (6.2-8.2) g/dL Albumin (3.80-4.90) g/dL Crossmatch See Detail 01/27/21 01/27/21 Range/Units 05:40 05:40 WBC (3.8-10.6) k/uL RBC (3.80-5.40) m/uL Hgb (11.4-16.0) gm/dL Hct (34.0-46.0) % Plt Count (150-450) k/uL Fibrinogen 935 H (200-500) mg/dL D-Dimer 3.22 H (<0.60) mg/L FEU Potassium 3.2 L (3.5-5.5) mmol/L Chloride 110 H (96-109) mmol/L Carbon Dioxide 18.9 L (21.6-31.8) mmol/L BUN 31.0 H (9.0-27.0) mg/dL Est GFR (CKD-EPI)AfAm 54.5 L (60.0-200.0) Est GFR (CKD-EPI)NonAf 47.0 L (60.0-200.0) BUN/Creatinine Ratio 28.18 H (12.00-20.00) Ratio Calcium 7.4 L (8.7-10.3) mg/dL Total Protein 4.4 L (6.2-8.2) g/dL Albumin 2.80 L (3.80-4.90) g/dL Crossmatch Microbiology - Last 24 Hours (Table) 01/25/21 13:10 Stool Culture - Preliminary Stool 01/25/21 16:07 Blood Culture Gram Stain - Preliminary Blood Blood Culture - Preliminary Klebsiella pneumoniae CT scan - abdomen: report reviewed (Computed tomography scan of the abdomen and pelvis with findings of a new multifocal enterocolitis with differential including inflammatory, infectious or ischemic etiology.) Assessment and Plan (1) Neutropenic colitis Narrative/Plan: 80-year-old female with multiple medical comorbidities including current treatment of bladder cancer on chemotherapy who presented to complaints of weakness and diarrhea. Patient found to be severely neutropenic with urinary tract infection currently receiving broad-spectrum antibiotic therapy. Patient also been complaining of profuse watery nonbloody diarrhea. Computed tomography scan of the abdomen and pelvis performed in evaluation with findings of a severe multifocal enterocolitis with differential including inflammatory, infectious or ischemic etiology. 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 Currently testing for Clostridium difficile has been negative with other stool cultures pending. Current Visit: Yes Status: Acute Code(s): D70.9 - NEUTROPENIA, UNSPECIFIED; K52.89 - OTHER SPECIFIED NONINFECTIVE GASTROENTERITIS AND COLITIS SNOMED Code(s): 478991419 (2) Febrile neutropenia Current Visit: Yes Status: Acute Code(s): D70.9 - NEUTROPENIA, UNSPECIFIED; R50.81 - FEVER PRESENTING WITH CONDITIONS CLASSIFIED ELSEWHERE SNOMED Code(s): 024633922 (3) S/P mastectomy, bilateral Current Visit: No Status: Acute Code(s): Z90.13 - ACQUIRED ABSENCE OF BILATERAL BREASTS AND NIPPLES SNOMED Code(s): 601689024 Plan: Supportive care Nothing by mouth except for ice chips Continue broad-spectrum antibiotic therapy Stool cultures/studies pending Testing for Clostridium difficile negative Continue twice a day cholestyramine Continue treatment with antidiarrheals/Lomotil Continue to monitor stool output Thank you for allowing us to participate in the care of the patient
[2021-01-28 06:55] LABS: Anisocytosis (M) Present; Poikilocytosis (M) Present; Rouleaux Present
[2021-01-28 07:26] LABS: ALT 16 U/L (4-34); AST 15 U/L (14-36); African American GFR (CKD) 66 (>60 ml/min/1.73 sqM); Albumin 2.4 g/dL (3.5-5.0); Albumin/Globulin Ratio 0.9; Alkaline Phosphatase 51 U/L (38-126); Anion Gap 6 mmol/L; Blood Urea Nitrogen 21 mg/dL (7-17); Carbon Dioxide 17 mmol/L (22-30); Chloride 115 mmol/L (98-107); Globulin 2.6 g/dL; Glucose 111 mg/dL (74-99); Non-African American GFR(CKD) 57 (>60 ml/min/1.73 sqM); Potassium 3.5 mmol/L (3.5-5.1); Sodium 138 mmol/L (137-145); Total Bilirubin 0.8 mg/dL (0.2-1.3)
[2021-01-28] MEDS: CEFEPIME 2 GM in SODIUM CHLORIDE 0.9% 100 ML IVPB SCH ×3 (09:22→23:37)
[2021-01-28] MEDS: metroNIDAZOLE-NS PMX 500 MG in SALINE 1 100ML.BAG IVPB SCH ×3 (09:22→23:37)
[2021-01-28] MEDS: LOSARTAN 50 MG TAB PO SCH (09:23)
[2021-01-28] MEDS: ANASTROZOLE 1 MG TAB PO SCH (09:23)
[2021-01-28] MEDS: DONEPEZIL 10 MG TAB PO SCH (09:23)
[2021-01-28] MEDS: ESCITALOPRAM 10 MG TAB PO SCH (09:23)
[2021-01-28] MEDS: FAMOTIDINE 20 MG TAB PO SCH (09:23)
[2021-01-28] MEDS: METOPROLOL SUCCINATE (ER) 100 MG TAB.ER.24H PO SCH (09:23)
[2021-01-28] MEDS: MEMANTINE 10 MG TAB PO SCH ×2 (09:23→22:00)
[2021-01-28] MEDS: CHOLESTYRAMINE (WITH SUGAR) 4 GM PACKET PO SCH ×2 (09:24→17:13)
[2021-01-28] MEDS: PRAZOSIN 1 MG CAP PO SCH (09:24)
[2021-01-28] MEDS: D5-0.9% NACL WITH KCL 20 MEQ/L 1,000 ML IV SCH (09:27)
[2021-01-28] MEDS ORDERED: DICYCLOMINE 10 MG CAP PO PRN (10:05)
--- NOTE | 2021-01-28 11:48 | P.PN ---
Subjective Progress Note Date: 01/28/21 Principal diagnosis: Bacteremia and DIarrhea and neutropenia Labs are stable, not much change. Objective - Vital Signs Vital signs: Vital Signs Temp 98.7 F 01/28/21 11:22 Pulse 79 01/28/21 11:22 Resp 18 01/28/21 11:22 BP 132/75 01/28/21 11:22 Pulse Ox 98 01/28/21 11:22 Intake & Output 01/27/21 01/28/21 01/28/21 18:59 06:59 18:59 Intake Total 310 1120 Balance 310 1120 Intake: Intake, IV Titration 1100 Amount Cefepime 2 gm In Sodium 100 Chloride 0.9% 100 ml @ 25 mls/hr IVPB Q8H [facility] Rx#: [id number] D5-0.9% NaCl with KCl 20 900 Meq/l 1,000 ml @ 75 mls/ hr IV .[id number] [facility] Rx#: [id number] metroNIDAZOLE-NS PMX 500 100 mg In Saline 1 100ml.bag @ 100 mls/hr IVPB Q8HR [facility] Rx#:[id number] Oral 20 Blood Product 310 Rc As-1 Unit 310 [id number] Other: Voiding Method Bedpan Toilet Toilet Diaper Bedpan Diaper Diaper # Voids 1 2 1 # Bowel Movements 1 1 - Exam Appears weak and ill Head: NCNNT Dry mucus membrames Lungs: Increased effort Abdomen: Tenderness to palpation Heart: Tachy, ir Ext: Trace BLE Edema - Labs CBC & Chem 7: 01/28/21 05:21 01/28/21 05:21 Labs: Abnormal Lab Results - Last 24 Hours (Table) 01/25/21 01/27/21 01/27/21 Range/Units 15:23 16:41 16:41 WBC 0.2 L* (3.8-10.6) k/uL RBC 2.54 L (3.80-5.40) m/uL Hgb 7.7 L (11.4-16.0) gm/dL Hct 23.6 L (34.0-46.0) % Plt Count 26 L (150-450) k/uL Neutrophils # 0.1 L* (1.3-7.7) k/uL Lymphocytes # 0.0 L (1.0-4.8) k/uL Sodium 135 L (137-145) mmol/L Potassium 3.3 L (3.5-5.1) mmol/L Chloride 111 H (98-107) mmol/L Carbon Dioxide 17 L (22-30) mmol/L BUN 26 H (7-17) mg/dL Glucose (74-99) mg/dL Calcium 7.8 L (8.4-10.2) mg/dL Total Protein 4.8 L (6.3-8.2) g/dL Albumin 2.4 L (3.5-5.0) g/dL Crossmatch See Detail 01/28/21 01/28/21 Range/Units 05:21 05:21 WBC 0.2 L* (3.8-10.6) k/uL RBC 2.52 L (3.80-5.40) m/uL Hgb 7.9 L (11.4-16.0) gm/dL Hct 23.3 L (34.0-46.0) % Plt Count 26 L (150-450) k/uL Neutrophils # (1.3-7.7) k/uL Lymphocytes # (1.0-4.8) k/uL Sodium (137-145) mmol/L Potassium (3.5-5.1) mmol/L Chloride 115 H (98-107) mmol/L Carbon Dioxide 17 L (22-30) mmol/L BUN 21 H (7-17) mg/dL Glucose 111 H (74-99) mg/dL Calcium 8.0 L (8.4-10.2) mg/dL Total Protein 5.0 L (6.3-8.2) g/dL Albumin 2.4 L (3.5-5.0) g/dL Crossmatch Microbiology - Last 24 Hours (Table) 01/27/21 16:00 Stool Culture - Preliminary Stool 01/25/21 16:07 Blood Culture Gram Stain - Final Blood Blood Culture - Final Klebsiella pneumoniae Assessment and Plan (1) Neutropenic colitis Current Visit: Yes Status: Acute Code(s): D70.9 - NEUTROPENIA, UNSPECIFIED; K52.89 - OTHER SPECIFIED NONINFECTIVE GASTROENTERITIS AND COLITIS SNOMED Code(s): 765934532 (2) Thrombocytopenia Current Visit: Yes Status: Acute Code(s): D69.6 - THROMBOCYTOPENIA, UNSPECIFIED SNOMED Code(s): 744471436 (3) Normochromic anemia Current Visit: Yes Status: Acute Code(s): D64.9 - ANEMIA, UNSPECIFIED SNOMED Code(s): 98256986 (4) Bacteremia Current Visit: Yes Status: Acute Code(s): R78.81 - BACTEREMIA SNOMED Code(s): 5203016 (5) Bacteremia due to Klebsiella pneumoniae Current Visit: Yes Status: Acute Code(s): R78.81 - BACTEREMIA; B96.1 - KLEBSIELLA PNEUMONIAE THE [facility]ES [facility] SNOMED Code(s): 452640266257 (6) Febrile neutropenia Current Visit: Yes Status: Acute Code(s): D70.9 - NEUTROPENIA, UNSPECIFIED; R50.81 - FEVER PRESENTING WITH CONDITIONS CLASSIFIED ELSEWHERE SNOMED Code(s): 920057741 Plan: Febrile Neutropenia: -Torres Cultures - Broad spectrum Antibiotics Neutropenic Colitis: - NPO - Please wait until resolution of neutropenia and symptoms prior to advancing diet - Abdominal imaging reveals inflammatory etiology Thrombocytopenia: - Hold EliG3 PLatelets 50K - NO NSAIDS (Tordol and Ibuprofen D/C's), ASA, Anticoagulation at this time Anemia: Secondary to chemo/Radiation: - Transfuse one unit PRBC today Bacteremia: - Blood Cultures POsitive for Klebsiella Pneumonae - Dr. Childs is following from [place] Urothelial Carcinoma: - Recently completed Chemotherapy - Almost completed with radiation therapy History of Breast Cancer: - COntinues on Arimidex Plan: - PRBC today - CBC, CMP in am Physician Attest: I have completed the full history and physical and agree with above dictation, dictated as a scribe.
--- NOTE | 2021-01-28 13:42 | P.PN ---
Subjective Progress Note Date: 01/28/21 This is an 80-year-old female patient of Dr. Quintanilla with past medical history for ischemic bowel in 2016 status post hemicolectomy done at [facility] as well as return to the OR for closure handsewn anastomosis 2, breast cancer status post bilateral mastectomy, bladder cancer undergoing chemotherapy, chronic anemia, hypertension, hyperlipidemia, paroxysmal atrial fibrillation on chronic eliquis, ASD closure in 2005 at [facility], gastroesophageal reflux disease. Patient presented to [facility] emergency center after undergoing chemotherapy yesterday. Patient has had increasing weakness over the past couple of days as well as diarrhea. She denies any blood in her stools. Patient continues to have worsening weakness, mild mental status changes and generalized abdominal pain. No nausea or vomiting. No chest pain. No shortness of breath. No fever or chills. Patient was afebrile, heart rate 75, blood pressure 146/64, pulse ox 96% on room air. WBC 0.2. Hemoglobin 10, platelet count 85. Sodium 132, potassium 4.5, chloride 102, CO2 19, BUN 17 and creatinine 1.05. Blood sugar 151. Total bilirubin 1.6, AST 22, ALT 21, alkaline phosphatase 55. Lipase less than 1010. Lactic acid 3.7 and repeat 1.8. Troponin negative. Urinalysis cloudy, moderate blood. Coronavirus PCR not detected. Chest x-ray reveals unchanged appearance. No acute cardiopulmonary process. Patient was started on cefepime, vancomycin, admitted to the oncology unit with consult for infectious disease and oncology. CAT scan of the abdomen and pelvis has been ordered as patient does have history of ischemic bowel. Stool specimen to be sent for C. difficile toxin and other stool studies. 01/27 patient examined bedside. Is much alert and answering questions appropriately. Diarrhea has improved. Fecal occult was negative for blood. C. diff is negative. Fresh patient continues to have significant tenderness in the abdomen. CT abdomen is positive for severe enterocolitis. Infectious disease recommended switching antibiotics to cefepime and Flagyl. Oncology evaluated the patient and initiated patient on filgrastim daily. GI consult placed to rule out IBD. yersenia stool cultures, lactoferrin, CALPROTECTIN levels ordered. Continue to remain an nothing by mouth diet. Status post 1 unit PRBC today as patient's hemoglobin remains low at 6.4, WBC remains a 0.1, platelet 2815 was in 19 5 d-dimer 3.22, potassium 3.2 chloride 110 bicarb 18.9. We'll replete patient's potassium. Start patient on D5NS at 75 mL per hour as patient remains nothing by mouth. 01/28 patient examined bedside. Appears more comfortable but endorses fatigue and tiredness. She does have significant abdominal pain and continues to have multiple bowel movements though they're getting softer as compared to on admission. Patient continues to remain on D5NS for hydration. Vitals this morning suggests a temp of 98.7 pulse 79 and respiratory rate 18 blood pressure 132/75. On evaluation of patient's blood work patient continues to remain leukopenic with WBC 0.2 hemoglobin improved to 7.9 with no need for transfusion today. CMP suggests a sodium 138 chloride 1:15 CO2 17 BUN 21 and creatinine 0.94 glucose 111 calcium 8 stool culture is pending. Blood culture from 01/25 suggests Klebsiella final report is not finalized. Patient continued to remain nothing by mouth and supportive care need to be provided. REVIEW OF SYSTEMS Constitutional: No fever, no chills, no night sweats. No weight change. Reports weakness, reports fatigue Reports lethargy. No daytime sleepiness. EENT: No headache. No blurred vision or double vision, no loss of vision. No loss of Hearing, no ringing in the ears, no dizziness. No nasal drainage or congestion. No epistaxis. No sore throat. Lungs: No shortness of breath, cough, no sputum production. No wheezing. Cardiovascular: No chest pain, no lower extremity edema. No palpitations. No paroxysmal nocturnal dyspnea. No orthopnea. No lightheadedness or dizziness. No syncopal episodes. Abdominal: Reports abdominal pain. No nausea, vomiting. Reports diarrhea improved. No constipation. No bloody or tarry stools.. No loss of appetite. Genitourinary: No dysuria, increased frequency, urgency. No urinary retention. Musculoskeletal: Reports myalgias. Reports muscle weakness, Reports gait dysfunction, no frequent falls. No back pain. No neck pain. Integumentary: No wounds, no lesions. No rash or pruritus. No unusual bruising. Neurologic: No aphasia. No facial droop. No change in mentation. No head injury. No headache. No paralysis. No paresthesia. Psychiatric: No depression. No anxiety. No mood swings. Endocrine: No abnormal blood sugars. Objective - Vital Signs Vital signs: Vital Signs Temp 98.7 F 01/28/21 11:22 Pulse 79 01/28/21 11:22 Resp 18 01/28/21 11:22 BP 132/75 01/28/21 11:22 Pulse Ox 98 01/28/21 11:22 Intake & Output 01/27/21 01/28/21 01/28/21 18:59 06:59 18:59 Intake Total 310 1120 Balance 310 1120 Intake: Intake, IV Titration 1100 Amount Cefepime 2 gm In Sodium 100 Chloride 0.9% 100 ml @ 25 mls/hr IVPB Q8H AZE[facility] Rx#: [id number] D5-0.9% NaCl with KCl 20 900 Meq/l 1,000 ml @ 75 mls/ hr IV .[id number] AZE[facility] Rx#: [id number] metroNIDAZOLE-NS PMX 500 100 mg In Saline 1 100ml.bag @ 100 mls/hr IVPB Q8HR AZEEM Rx#:[id number] Oral 20 Blood Product 310 Rc As-1 Unit 310 [id number] Other: Voiding Method Bedpan Toilet Toilet Diaper Bedpan Diaper Diaper # Voids 1 2 1 # Bowel Movements 1 1 - Exam PHYSICAL EXAMINATION Gen: This is an 80-year-old female. Patient is resting in bed. She is slightly confused. HEENT: Head is atraumatic, normocephalic. Pupils equal, round. Sclerae is anicteric. NECK: Supple. No JVD. No lymphadenopathy. No thyromegaly. LUNGS: Clear to auscultation. No wheezes or rhonchi. No intercostal retractions. HEART: regular rate and rhythm. No murmur. ABDOMEN: Soft. Bowel sounds are present. No masses. Mild generalized tenderness. EXTREMITIES: No pedal edema. No calf tenderness. Dorsalis pedis palpable bila terally. NEUROLOGICAL: Patient is awake, alert and oriented to person and place. Cranial nerves 2 through 12 are grossly intact. Generalized weakness noted. - Labs CBC & Chem 7: 01/28/21 05:21 01/28/21 05:21 Labs: Abnormal Lab Results - Last 24 Hours (Table) 01/27/21 01/27/21 01/28/21 Range/Units 16:41 16:41 05:21 WBC 0.2 L* (3.8-10.6) k/uL RBC 2.54 L (3.80-5.40) m/uL Hgb 7.7 L (11.4-16.0) gm/dL Hct 23.6 L (34.0-46.0) % Plt Count 26 L (150-450) k/uL Neutrophils # 0.1 L* (1.3-7.7) k/uL Lymphocytes # 0.0 L (1.0-4.8) k/uL Sodium 135 L (137-145) mmol/L Potassium 3.3 L (3.5-5.1) mmol/L Chloride 111 H 115 H (98-107) mmol/L Carbon Dioxide 17 L 17 L (22-30) mmol/L BUN 26 H 21 H (7-17) mg/dL Glucose 111 H (74-99) mg/dL Calcium 7.8 L 8.0 L (8.4-10.2) mg/dL Total Protein 4.8 L 5.0 L (6.3-8.2) g/dL Albumin 2.4 L 2.4 L (3.5-5.0) g/dL 01/28/21 Range/Units 05:21 WBC 0.2 L* (3.8-10.6) k/uL RBC 2.52 L (3.80-5.40) m/uL Hgb 7.9 L (11.4-16.0) gm/dL Hct 23.3 L (34.0-46.0) % Plt Count 26 L (150-450) k/uL Neutrophils # (1.3-7.7) k/uL Lymphocytes # (1.0-4.8) k/uL Sodium (137-145) mmol/L Potassium (3.5-5.1) mmol/L Chloride (98-107) mmol/L Carbon Dioxide (22-30) mmol/L BUN (7-17) mg/dL Glucose (74-99) mg/dL Calcium (8.4-10.2) mg/dL Total Protein (6.3-8.2) g/dL Albumin (3.5-5.0) g/dL Microbiology - Last 24 Hours (Table) 01/27/21 16:00 Stool Culture - Preliminary Stool 01/25/21 16:07 Blood Culture Gram Stain - Final Blood Blood Culture - Final Klebsiella pneumoniae Assessment and Plan Plan: ASSESSMENT AND PLAN 1. Neutropenic sepsis. Patient is on cefepime and Flagyl. C. diff discontinued by infectious disease. C. diff negative and culture, oncology consult, infectious disease consult, blood cultures. 2. Klebsiella pneumoniae bacteremia from preliminary report. Continue current antibiotics. Consult with infectious disease. 3. Abdominal pain and diarrhea secondary to severe infectious enterocolitis rule out IBD fecal occult negative CAT scan of the abdomen and pelvis with contrast severe enterocolitis. Fecal occult negative ruled out ischemic bowel disease. Continue Questran 4 g twice daily, Lomotil 3 times daily as needed. 4. Pancytopenia secondary to bladder cancer and chemotherapy. Patient has been started on Zarxio oncology. 5. Dehydration secondary to diarrhea. Continue IV fluids DEXTROSE 0.9 normal saline at 75 mL per hour. 6. Bladder cancer receiving chemotherapy. Oncology consult appreciated. 7. Infectious encephalopathy. Improved Continue above treatment. 8. Lactic acidosis secondary to sepsis. Continue protocol. 9. Hypertension. Continue losartan 100 mg daily, Minipress 2 mg daily 10. Hyperlipidemia. Continue Lipitor 10 mg at bedtime. 11. Paroxysmal atrial fibrillation. Continue Toprol-XL 100 mg daily, eliquis on hold due to thrombocytopenia. 12. History of breast cancer. Continue Arimidex 1 mg daily. 13. Gastroesophageal reflux disease and GI prophylaxis. Continue famotidine 20 mg daily. 14. Mild dementia. Continue Aricept 10 mg daily and Namenda 10 mg twice daily 15. Restless leg syndrome. Continue Requip 0.5 mg twice daily. 16. COVID-19 testing negative. Patient has been hospitalized during a pandemic. DISCHARGE PLAN TBD. Likely return home. PT and OT consults added.
[2021-01-28] MEDS: DIPHENOX-ATROP 2.5-0.025 MG 1 EACH TAB PO PRN (14:36)
--- NOTE | 2021-01-28 14:58 | P.PN ---
Subjective Progress Note Date: 01/28/21 Principal diagnosis: Persistent diarrhea She was seen and examined lying in bed this morning. She seems somewhat confused today compared to yesterday. She states she thought she had 4 bowel movements this morning, however after discussing with her nurse she has not had any. Her seeing states that bowel movements have slowed down significantly, however she still has diarrhea. The patient states she is now having abdominal cramping, no nausea or vomiting. He remains nothing by mouth with ice chips. Objective - Vital Signs Vital signs: Vital Signs Temp 97.7 F 01/28/21 05:00 Pulse 73 01/28/21 05:00 Resp 18 01/28/21 05:00 BP 109/57 01/28/21 05:00 Pulse Ox 97 01/28/21 05:00 Intake & Output 01/27/21 01/28/21 01/28/21 18:59 06:59 18:59 Intake Total 310 1120 Balance 310 1120 Intake: Intake, IV Titration 1100 Amount Cefepime 2 gm In Sodium 100 Chloride 0.9% 100 ml @ 25 mls/hr IVPB Q8H [facility] Rx#: [id number] D5-0.9% NaCl with KCl 20 900 Meq/l 1,000 ml @ 75 mls/ hr IV .[id number] [facility] Rx#: [id number] metroNIDAZOLE-NS PMX 500 100 mg In Saline 1 100ml.bag @ 100 mls/hr IVPB Q8HR [facility] Rx#:[id number] Oral 20 Blood Product 310 Rc As-1 Unit 310 [id number] Other: Voiding Method Bedpan Toilet Toilet Diaper Bedpan Diaper Diaper # Voids 1 2 1 # Bowel Movements 1 1 - Exam General appearance: The patient is alert, confused, appears in no acute distress. HET: Head is normocephalic and atraumatic. Conjunctiva pink. Sclera anicteric. Neck: Supple without lymphadenopathy. Abdomen: Soft, diffuse tenderness, nondistended with bowel sounds. No guarding or rigidity. Extremities: Normal skin color and turgor. No pedal edema Skin: No rashes, no jaundice Neurological: Pleasantly confused. - Labs CBC & Chem 7: 01/28/21 05:21 01/28/21 05:21 Labs: Abnormal Lab Results - Last 24 Hours (Table) 0401/27/21 01/27/21 Range/Units 15:23 05:40 16:41 WBC 0.2 L* (3.8-10.6) k/uL RBC 2.54 L (3.80-5.40) m/uL Hgb 7.7 L (11.4-16.0) gm/dL Hct 23.6 L (34.0-46.0) % Plt Count 26 L (150-450) k/uL Neutrophils # 0.1 L* (1.3-7.7) k/uL Lymphocytes # 0.0 L (1.0-4.8) k/uL Sodium (137-145) mmol/L Potassium 3.2 L (3.5-5.5) mmol/L Chloride 110 H (96-109) mmol/L Carbon Dioxide 18.9 L (21.6-31.8) mmol/L BUN 31.0 H (9.0-27.0) mg/dL Est GFR (CKD-EPI)AfAm 54.5 L (60.0-200.0) Est GFR (CKD-EPI)NonAf 47.0 L (60.0-200.0) BUN/Creatinine Ratio 28.18 H (12.00-20.00) Ratio Glucose (74-99) mg/dL Calcium 7.4 L (8.7-10.3) mg/dL Total Protein 4.4 L (6.2-8.2) g/dL Albumin 2.80 L (3.80-4.90) g/dL Crossmatch See Detail 01/27/21 01/28/21 01/28/21 Range/Units 16:41 05:21 05:21 WBC 0.2 L* (3.8-10.6) k/uL RBC 2.52 L (3.80-5.40) m/uL Hgb 7.9 L (11.4-16.0) gm/dL Hct 23.3 L (34.0-46.0) % Plt Count 26 L (150-450) k/uL Neutrophils # (1.3-7.7) k/uL Lymphocytes # (1.0-4.8) k/uL Sodium 135 L (137-145) mmol/L Potassium 3.3 L (3.5-5.5) mmol/L Chloride 111 H 115 H (96-109) mmol/L Carbon Dioxide 17 L 17 L (21.6-31.8) mmol/L BUN 26 H 21 H (9.0-27.0) mg/dL Est GFR (CKD-EPI)AfAm (60.0-200.0) Est GFR (CKD-EPI)NonAf (60.0-200.0) BUN/Creatinine Ratio (12.00-20.00) Ratio Glucose 111 H (74-99) mg/dL Calcium 7.8 L 8.0 L (8.7-10.3) mg/dL Total Protein 4.8 L 5.0 L (6.2-8.2) g/dL Albumin 2.4 L 2.4 L (3.80-4.90) g/dL Crossmatch Microbiology - Last 24 Hours (Table) 01/27/21 16:00 Stool Culture - Preliminary Stool 01/25/21 16:07 Blood Culture Gram Stain - Final Blood Blood Culture - Final Klebsiella pneumoniae Assessment and Plan (1) Neutropenic colitis Narrative/Plan: 80-year-old female with multiple medical comorbidities including current treatment of bladder cancer on chemotherapy who presented to complaints of weakness and diarrhea. Patient found to be severely neutropenic with urinary tract infection currently receiving broad-spectrum antibiotic therapy. Patient also been complaining of profuse watery nonbloody diarrhea. Computed tomography scan of the abdomen and pelvis performed in evaluation with findings of a severe multifocal enterocolitis with differential including inflammatory, infectious or ischemic etiology. 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 Currently testing for Clostridium difficile has been negative with other stool cultures pending. Current Visit: Yes Status: Acute Code(s): D70.9 - NEUTROPENIA, UNSPECIFIED; K52.89 - OTHER SPECIFIED NONINFECTIVE GASTROENTERITIS AND COLITIS SNOMED Code(s): 173975526 (2) Febrile neutropenia Current Visit: Yes Status: Acute Code(s): D70.9 - NEUTROPENIA, UNSPECIFIED; R50.81 - FEVER PRESENTING WITH CONDITIONS CLASSIFIED ELSEWHERE SNOMED Code(s): 534768997 (3) Bladder cancer Current Visit: No Status: Acute Code(s): C67.9 - MALIGNANT NEOPLASM OF BLADDER, UNSPECIFIED SNOMED Code(s): 187211934 (4) History of breast cancer Current Visit: No Status: Acute Code(s): Z85.3 - PERSONAL HISTORY OF MALIGNANT NEOPLASM OF BREAST SNOMED Code(s): 738235603 Plan: Supportive care Nothing by mouth except for ice chips Continue broad-spectrum antibiotic therapy Stool cultures/studies pending Testing for Clostridium difficile negative Continue twice a day cholestyramine Continue treatment with antidiarrheals/Lomotil Will add dicyclomine 10 mg 3 times a day as needed Continue to monitor stool output Thank you for allowing us to participate in the care of the patient, we will continue to follow Dr. Negrete I agree with the dictator's note, documented as a scribe by Teresa Batista.
[2021-01-28] MEDS: FILGRASTIM-SNDZ 480 MCG/0.8 ML SYRINGE SQ SCH (17:12)
[2021-01-28] MEDS: ATORVASTATIN 10 MG TAB PO SCH (22:00)
[2021-01-29] MEDS: MORPHINE SULFATE 2 MG/ML SYRINGE IVP PRN ×3 (02:18→14:20)
[2021-01-29] MEDS: D5-0.9% NACL WITH KCL 20 MEQ/L 1,000 ML IV SCH ×3 (04:22→22:05)
[2021-01-29 05:34] LABS: Appearance,Urine Clear (Clear); Bacteria,Urine Rare /hpf; Bilirubin,Urine Negative (Negative); Blood,Urine Moderate (Negative); Color,Urine Yellow; Glucose,Urine (UA) Negative (Negative); Granular Casts,Urine 1 /lpf (0); Hyaline Casts,Urine 4 /lpf (0-2); Ketones,Urine Negative (Negative); Leukocyte Esterase,Urine Negative (Negative); Mucus,Urine Occasional /hpf; Nitrite,Urine Negative (Negative); PH, Urine 5.5 (5.0-8.0); Protein,Urine 1+ (Negative); RBC,Urine 29 /hpf (0-5); Specific Gravity,Urine 1.022 (1.001-1.035); Squamous Epithelial Cell,Urine 1 /hpf (0-4); Urobilinogen,Urine <2.0 mg/dL (<2.0); WBC,Urine 2 /hpf (0-5)
[2021-01-29 07:06] LABS: HCT 24.5 % (34.0-46.0); HGB 8.7 gm/dL (11.4-16.0); MCH 32.7 pg (25.0-35.0); MCHC 35.4 g/dL (31.0-37.0); MCV 92.4 fL (80.0-100.0); RBC 2.65 m/uL (3.80-5.40); RDW 13.8 % (11.5-15.5)
--- NOTE | 2021-01-29 07:08 | PN ---
PROGRESS NOTE DATE OF SERVICE: 01/28/2021 REASON FOR FOLLOWUP: Klebsiella pneumoniae bacteremia, abdominal source. INTERVAL HISTORY: Patient is currently afebrile. The patient is feeling slightly better. No chest pain, shortness of breath or cough. Abdominal pain has improved. No vomiting or diarrhea. PHYSICAL EXAMINATION: Blood pressure 147/59, pulse 82, temperature is 97.9. She is 98% on room air. General description: The patient is an elderly female lying in bed in no distress. Respiratory: Unlabored breathing, clear to auscultation anteriorly. Heart S1, S2. Regular rate and rhythm. Abdomen soft, no tenderness. No guarding, no rigidity. LABS: Hemoglobin 7.1, white count 0.2, BUN of 21, creatinine 0.94. DIAGNOSTIC IMPRESSION AND PLAN: Patient with Klebsiella pneumoniae bacteremia, abdominal source. This patient does have febrile neutropenia, evidence of colitis. Patient to continue with cefepime and Flagyl while monitoring clinical course closely. Continue supportive care. MMODL / IJN: [id number] /
[2021-01-29 07:16] LABS: INR 1.2 (<1.2); Prothrombin Time 12.2 sec (9.0-12.0)
[2021-01-29 07:20] LABS: Platelet Count 38 k/uL (150-450); WBC 0.7 k/uL (3.8-10.6)
[2021-01-29 07:39] LABS: Poikilocytosis (M) Present; Tear Drop Cells Present
[2021-01-29] MEDS: ONDANSETRON 4 MG/2 ML VIAL IVP PRN ×3 (08:20→22:23)
[2021-01-29] MEDS: CEFEPIME 2 GM in SODIUM CHLORIDE 0.9% 100 ML IVPB SCH ×2 (08:21→16:28)
[2021-01-29 08:28] LABS: ALT 12 U/L (4-34); AST 12 U/L (14-36); African American GFR (CKD) 78 (>60 ml/min/1.73 sqM); Albumin 2.4 g/dL (3.5-5.0); Albumin/Globulin Ratio 0.9; Alkaline Phosphatase 51 U/L (38-126); Anion Gap 7 mmol/L; Blood Urea Nitrogen 12 mg/dL (7-17); Calcium 8.3 mg/dL (8.4-10.2); Carbon Dioxide 17 mmol/L (22-30); Chloride 114 mmol/L (98-107); Globulin 2.6 g/dL; Glucose 107 mg/dL (74-99); Non-African American GFR(CKD) 67 (>60 ml/min/1.73 sqM); Potassium 3.6 mmol/L (3.5-5.1); Sodium 138 mmol/L (137-145); Total Bilirubin 0.7 mg/dL (0.2-1.3)
[2021-01-29] MEDS: MEMANTINE 10 MG TAB PO SCH ×2 (08:31→22:04)
[2021-01-29] MEDS: ANASTROZOLE 1 MG TAB PO SCH (08:31)
[2021-01-29] MEDS: DONEPEZIL 10 MG TAB PO SCH (08:31)
[2021-01-29] MEDS: LOSARTAN 50 MG TAB PO SCH (08:31)
[2021-01-29] MEDS: METOPROLOL SUCCINATE (ER) 100 MG TAB.ER.24H PO SCH (08:31)
[2021-01-29] MEDS: FAMOTIDINE 20 MG TAB PO SCH (08:31)
[2021-01-29] MEDS: ESCITALOPRAM 10 MG TAB PO SCH (08:31)
[2021-01-29] MEDS: PRAZOSIN 1 MG CAP PO SCH (08:32)
[2021-01-29] MEDS: CHOLESTYRAMINE (WITH SUGAR) 4 GM PACKET PO SCH ×2 (08:32→16:29)
--- NOTE | 2021-01-29 11:23 | P.PN ---
Subjective Progress Note Date: 01/29/21 This is an 80-year-old female patient of Dr. Quintanilla with past medical history for ischemic bowel in 2016 status post hemicolectomy done at [facility] as well as return to the OR for closure handsewn anastomosis 2, breast cancer status post bilateral mastectomy, bladder cancer undergoing chemotherapy, chronic anemia, hypertension, hyperlipidemia, paroxysmal atrial fibrillation on chronic eliquis, ASD closure in 2005 at [facility], gastroesophageal reflux disease. Patient presented to [facility] emergency center after undergoing chemotherapy yesterday. Patient has had increasing weakness over the past couple of days as well as diarrhea. She denies any blood in her stools. Patient continues to have worsening weakness, mild mental status changes and generalized abdominal pain. No nausea or vomiting. No chest pain. No shortness of breath. No fever or chills. Patient was afebrile, heart rate 75, blood pressure 146/64, pulse ox 96% on room air. WBC 0.2. Hemoglobin 10, platelet count 85. Sodium 132, potassium 4.5, chloride 102, CO2 19, BUN 17 and creatinine 1.05. Blood sugar 151. Total bilirubin 1.6, AST 22, ALT 21, alkaline phosphatase 55. Lipase less than 1010. Lactic acid 3.7 and repeat 1.8. Troponin negative. Urinalysis cloudy, moderate blood. Coronavirus PCR not detected. Chest x-ray reveals unchanged appearance. No acute cardiopulmonary process. Patient was started on cefepime, vancomycin, admitted to the oncology unit with consult for infectious disease and oncology. CAT scan of the abdomen and pelvis has been ordered as patient does have history of ischemic bowel. Stool specimen to be sent for C. difficile toxin and other stool studies. 01/27 patient examined bedside. Is much alert and answering questions appropriately. Diarrhea has improved. Fecal occult was negative for blood. C. diff is negative. Fresh patient continues to have significant tenderness in the abdomen. CT abdomen is positive for severe enterocolitis. Infectious disease recommended switching antibiotics to cefepime and Flagyl. Oncology evaluated the patient and initiated patient on filgrastim daily. GI consult placed to rule out IBD. yersenia stool cultures, lactoferrin, CALPROTECTIN levels ordered. Continue to remain an nothing by mouth diet. Status post 1 unit PRBC today as patient's hemoglobin remains low at 6.4, WBC remains a 0.1, platelet 2815 was in 19 5 d-dimer 3.22, potassium 3.2 chloride 110 bicarb 18.9. We'll replete patient's potassium. Start patient on D5NS at 75 mL per hour as patient remains nothing by mouth. 01/28 patient examined bedside. Appears more comfortable but endorses fatigue and tiredness. She does have significant abdominal pain and continues to have multiple bowel movements though they're getting softer as compared to on admission. Patient continues to remain on D5NS for hydration. Vitals this morning suggests a temp of 98.7 pulse 79 and respiratory rate 18 blood pressure 132/75. On evaluation of patient's blood work patient continues to remain leukopenic with WBC 0.2 hemoglobin improved to 7.9 with no need for transfusion today. CMP suggests a sodium 138 chloride 1:15 CO2 17 BUN 21 and creatinine 0.94 glucose 111 calcium 8 stool culture is pending. Blood culture from 01/25 suggests Klebsiella final report is not finalized. Patient continued to remain nothing by mouth and supportive care need to be provided. 01/29: Examined at the bedside. She is able to answer questions and is alert to self and place. Nursing does state that the patient was quite confused this morning and pulled out both of her IVs. She is complaining of vaginal pressure and discomfort. A repeat UA was sent which was negative. She continues to have diarrhea. Patient remains afebrile, heart rate 84, respirations 18, blood pressure 151/63 pulse ox 98% on room air. WC is increased to 0.7, RBC 2.65, hemoglobin 8.7, platelets 38, potassium 3.6, BUN 12, creatinine 0.82. REVIEW OF SYSTEMS Constitutional: No fever, no chills, no night sweats. No weight change. Reports weakness, reports fatigue Reports lethargy. No daytime sleepiness. EENT: No headache. No blurred vision or double vision, no loss of vision. No loss of Hearing, no ringing in the ears, no dizziness. No nasal drainage or congestion. No epistaxis. No sore throat. Lungs: No shortness of breath, cough, no sputum production. No wheezing. Cardiovascular: No chest pain, no lower extremity edema. No palpitations. No paroxysmal nocturnal dyspnea. No orthopnea. No lightheadedness or dizziness. No syncopal episodes. Abdominal: Reports abdominal pain. No nausea, vomiting. Reports diarrhea improved. No constipation. No bloody or tarry stools.. No loss of appetite. Genitourinary: No dysuria, increased frequency, urgency. No urinary retention. Musculoskeletal: Reports myalgias. Reports muscle weakness, Reports gait dysfunction, no frequent falls. No back pain. No neck pain. Integumentary: No wounds, no lesions. No rash or pruritus. No unusual bruising. Neurologic: No aphasia. No facial droop. No change in mentation. No head injury. No headache. No paralysis. No paresthesia. Psychiatric: No depression. No anxiety. No mood swings. Endocrine: No abnormal blood sugars. PHYSICAL EXAMINATION Gen: This is an 80-year-old female. Patient is resting in bed. She is slightly confused. HEENT: Head is atraumatic, normocephalic. Pupils equal, round. Sclerae is anicteric. NECK: Supple. No JVD. No lymphadenopathy. No thyromegaly. LUNGS: Clear to auscultation. No wheezes or rhonchi. No intercostal retractions. HEART: regular rate and rhythm. No murmur. ABDOMEN: Soft. Bowel sounds are present. No masses. Mild generalized tenderness. EXTREMITIES: No pedal edema. No calf tenderness. Dorsalis pedis palpable bilaterally. NEUROLOGICAL: Patient is awake, alert and oriented to person and place. Cranial nerves 2 through 12 are grossly intact. Generalized weakness noted. ASSESSMENT AND PLAN 1. Neutropenic sepsis. Patient is on cefepime and Flagyl. C. diff discontinued by infectious disease. C. diff negative and culture, oncology consult appreciated, infectious disease consult appreciated, blood cultures n oted above. 2. Klebsiella pneumoniae bacteremia from preliminary report. Continue current antibiotics. Consult with infectious disease. 3. Abdominal pain and diarrhea secondary to severe infectious enterocolitis rule out IBD fecal occult negative CAT scan of the abdomen and pelvis with contrast severe enterocolitis. Fecal occult negative ruled out ischemic bowel disease. Continue Questran 4 g twice daily, Lomotil 3 times daily as needed. 4. Pancytopenia secondary to bladder cancer and chemotherapy. Patient has been started on Zarxio oncology. 5. Dehydration secondary to diarrhea. Continue IV fluids DEXTROSE 0.9 normal saline at 75 mL per hour. 6. Bladder cancer receiving chemotherapy. Oncology consult appreciated. 7. Infectious encephalopathy. Improved Continue above treatment. 8. Lactic acidosis secondary to sepsis. Continue protocol. 9. Hypertension. Continue losartan 100 mg daily, Minipress 2 mg daily 10. Hyperlipidemia. Continue Lipitor 10 mg at bedtime. 11. Paroxysmal atrial fibrillation. Continue Toprol-XL 100 mg daily, eliquis on hold due to thrombocytopenia. 12. History of breast cancer. Continue Arimidex 1 mg daily. 13. Gastroesophageal reflux disease and GI prophylaxis. Continue famotidine 20 mg daily. 14. Mild dementia. Continue Aricept 10 mg daily and Namenda 10 mg twice daily 15. Restless leg syndrome. Continue Requip 0.5 mg twice daily. 16. COVID-19 testing negative. Patient has been hospitalized during a pandemic. 17. GI prophylaxis Pepcid 20 mg by mouth daily 18. DVT prophylaxis: Sequential compression garments DISCHARGE PLAN TBD. Likely return home. PT and OT consults added. Impression and plan of care have been directed as dictated by the signing physician. Luz Vega nurse practitioner acting as scribe for signing physician. Objective - Vital Signs Vital signs: Vital Signs Temp 97.6 F 01/29/21 04:20 Pulse 84 01/29/21 04:20 Resp 18 01/29/21 04:20 BP 149/75 01/29/21 11:02 Pulse Ox 98 01/29/21 04:20 Intake & Output 01/28/21 01/29/21 01/29/21 18:59 06:59 18:59 Intake Total 1150 1100 Balance 1150 1100 Intake: Intake, IV Titration 1150 1100 Amount Cefepime 2 gm In Sodium 200 100 Chloride 0.9% 100 ml @ 25 mls/hr IVPB Q8H [facility] Rx#: [id number] D5-0.9% NaCl with KCl 20 750 900 Meq/l 1,000 ml @ 75 mls/ hr IV .[id number] [facility] Rx#: [id number] metroNIDAZOLE-NS PMX 500 200 100 mg In Saline 1 100ml.bag @ 100 mls/hr IVPB Q8HR [facility] Rx#:[id number] Other: Voiding Method Toilet Diaper Diaper # Voids 1 2 # Bowel Movements 1 - Labs CBC & Chem 7: 01/29/21 06:36 01/29/21 06:36 Labs: Abnormal Lab Results - Last 24 Hours (Table) 01/29/21 01/29/21 01/29/21 Range/Units 05:00 06:36 06:36 WBC 0.7 L* (3.8-10.6) k/uL RBC 2.65 L (3.80-5.40) m/uL Hgb 8.7 L (11.4-16.0) gm/dL Hct 24.5 L (34.0-46.0) % Plt Count 38 L (150-450) k/uL PT (9.0-12.0) sec INR (<1.2) Chloride 114 H (98-107) mmol/L Carbon Dioxide 17 L (22-30) mmol/L Glucose 107 H (74-99) mg/dL Calcium 8.3 L (8.4-10.2) mg/dL AST 12 L (14-36) U/L Total Protein 5.0 L (6.3-8.2) g/dL Albumin 2.4 L (3.5-5.0) g/dL Urine Protein 1+ H (Negative) Urine Blood Moderate H (Negative) Urine RBC 29 H (0-5) /hpf Urine Bacteria Rare H (None) /hpf Hyaline Casts 4 H (0-2) /lpf Urine Mucus Occasional H (None) /hpf 01/29/21 Range/Units 06:36 WBC (3.8-10.6) k/uL RBC (3.80-5.40) m/uL Hgb (11.4-16.0) gm/dL Hct (34.0-46.0) % Plt Count (150-450) k/uL PT 12.2 H (9.0-12.0) sec INR 1.2 H (<1.2) Chloride (98-107) mmol/L Carbon Dioxide (22-30) mmol/L Glucose (74-99) mg/dL Calcium (8.4-10.2) mg/dL AST (14-36) U/L Total Protein (6.3-8.2) g/dL Albumin (3.5-5.0) g/dL Urine Protein (Negative) Urine Blood (Negative) Urine RBC (0-5) /hpf Urine Bacteria (None) /hpf Hyaline Casts (0-2) /lpf Urine Mucus (None) /hpf Microbiology - Last 24 Hours (Table) 01/25/21 13:10 Stool Culture - Preliminary Stool
[2021-01-29] MEDS: metroNIDAZOLE-NS PMX 500 MG in SALINE 1 100ML.BAG IVPB SCH ×2 (12:53→22:05)
[2021-01-29] MEDS: ACETAMINOPHEN TAB 325 MG TAB PO PRN (15:20)
[2021-01-29] MEDS: HYDROmorphone 1 MG/ML 1 ML SYRINGE IVP PRN (17:00)
[2021-01-29] MEDS: FILGRASTIM-SNDZ 480 MCG/0.8 ML SYRINGE SQ SCH (17:36)
--- NOTE | 2021-01-29 19:02 | PN ---
PROGRESS NOTE DATE OF SERVICE: 01/29/2021 REASON FOR FOLLOWUP: Febrile neutropenia with Klebsiella bacteremia. INTERVAL HISTORY: Patient is currently afebrile. She has been complaining of feeling nauseous and complaining of abdominal pain. Normal stool. No chest pain or shortness of breath. No cough and no diarrhea. PHYSICAL EXAMINATION: Blood pressure 125/80 with a pulse of 70, temperature 99.2. She is 96% on room air. GENERAL DESCRIPTION: An elderly female lying in bed in no distress. RESPIRATORY SYSTEM: Unlabored breathing, clear to auscultation anteriorly. HEART: S1, S2. Regular rate and rhythm. ABDOMEN: Soft, mildly distended. No guarding or rigidity. LABS: Hemoglobin is 8.6, white count 0.7, BUN of 12, creatinine 0.82. DIAGNOSTIC IMPRESSION AND PLAN: Patient with febrile neutropenia and Klebsiella bacteremia secondary to abdominal source, possible colitis and cholangitis. The patient is currently on cefepime and Flagyl. Continue with supportive treatment. Prognosis remains to be guarded. Continue supportive care. MMODL / IJN: [id number] /
[2021-01-29] MEDS: ATORVASTATIN 10 MG TAB PO SCH (22:03)
[2021-01-30] MEDS: CEFEPIME 2 GM in SODIUM CHLORIDE 0.9% 100 ML IVPB SCH ×3 (00:59→15:27)
[2021-01-30] MEDS: HYDROmorphone 1 MG/ML 1 ML SYRINGE IVP PRN (00:59)
[2021-01-30] MEDS: metroNIDAZOLE-NS PMX 500 MG in SALINE 1 100ML.BAG IVPB SCH ×3 (05:14→20:39)
[2021-01-30 06:42] LABS: HCT 25.2 % (34.0-46.0); HGB 8.9 gm/dL (11.4-16.0); MCH 32.4 pg (25.0-35.0); MCHC 35.3 g/dL (31.0-37.0); MCV 91.7 fL (80.0-100.0); Mean Platelet Volume 8.7; RBC 2.75 m/uL (3.80-5.40); RDW 13.9 % (11.5-15.5); WBC 2.7 k/uL (3.8-10.6)
[2021-01-30 06:51] LABS: Platelet Count 47 k/uL (150-450)
[2021-01-30 07:10] LABS: D-Dimer 6.83 mg/L FEU (<0.60); INR 1.3 (<1.2); Prothrombin Time 13.2 sec (9.0-12.0)
[2021-01-30 07:38] LABS: Nucleated Red Blood Cells 0 /100 WBC (0-0)
[2021-01-30 07:42] LABS: Band Neutrophils % 5 %; Eosinophils # (M) 0.03 k/uL (0-0.7); Lymphocytes # (M) 0.49 k/uL (1.0-4.8); Neutrophils % (M) 65 %; Total Cells Counted 100
[2021-01-30 07:46] LABS: Poikilocytosis (M) Present
[2021-01-30] MEDS: LOSARTAN 50 MG TAB PO SCH (07:56)
[2021-01-30] MEDS: ANASTROZOLE 1 MG TAB PO SCH (07:56)
[2021-01-30] MEDS: FAMOTIDINE 20 MG TAB PO SCH (07:56)
[2021-01-30] MEDS: ESCITALOPRAM 10 MG TAB PO SCH (07:57)
[2021-01-30] MEDS: DONEPEZIL 10 MG TAB PO SCH (07:57)
[2021-01-30] MEDS: METOPROLOL SUCCINATE (ER) 100 MG TAB.ER.24H PO SCH (07:57)
[2021-01-30] MEDS: PRAZOSIN 1 MG CAP PO SCH (07:58)
[2021-01-30] MEDS: MEMANTINE 10 MG TAB PO SCH ×2 (07:58→20:39)
--- NOTE | 2021-01-30 10:38 | P.PN ---
Subjective Progress Note Date: 01/30/21 This is an 80-year-old female patient of Dr. 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 as well as return to the OR for closure handsewn anastomosis 2, breast cancer status post bilateral mastectomy, bladder cancer undergoing chemotherapy, chronic anemia, hypertension, hyperlipidemia, paroxysmal atrial fibrillation on chronic eliquis, ASD closure in 2005 at [facility], gastroesophageal reflux disease. Patient presented to [facility] emergency center after undergoing chemotherapy yesterday. Patient has had increasing weakness over the past couple of days as well as diarrhea. She denies any blood in her stools. Patient continues to have worsening weakness, mild mental status changes and generalized abdominal pain. No nausea or vomiting. No chest pain. No shortness of breath. No fever or chills. Patient was afebrile, heart rate 75, blood pressure 146/64, pulse ox 96% on room air. WBC 0.2. Hemoglobin 10, platelet count 85. Sodium 132, potassium 4.5, chloride 102, CO2 19, BUN 17 and creatinine 1.05. Blood sugar 151. Total bilirubin 1.6, AST 22, ALT 21, alkaline phosphatase 55. Lipase less than 1010. Lactic acid 3.7 and repeat 1.8. Troponin negative. Urinalysis cloudy, moderate blood. Coronavirus PCR not detected. Chest x-ray reveals unchanged appearance. No acute cardiopulmonary process. Patient was started on cefepime, vancomycin, admitted to the oncology unit with consult for infectious disease and oncology. CAT scan of the abdomen and pelvis has been ordered as patient does have history of ischemic bowel. Stool specimen to be sent for C. difficile toxin and other stool studies. 01/27 patient examined bedside. Is much alert and answering questions appropriately. Diarrhea has improved. Fecal occult was negative for blood. C. diff is negative. Fresh patient continues to have significant tenderness in the abdomen. CT abdomen is positive for severe enterocolitis. Infectious disease recommended switching antibiotics to cefepime and Flagyl. Oncology evaluated the patient and initiated patient on filgrastim daily. GI consult placed to rule out IBD. yersenia stool cultures, lactoferrin, CALPROTECTIN levels ordered. Continue to remain an nothing by mouth diet. Status post 1 unit PRBC today as patient's hemoglobin remains low at 6.4, WBC remains a 0.1, platelet 2815 was in 19 5 d-dimer 3.22, potassium 3.2 chloride 110 bicarb 18.9. We'll replete patient's potassium. Start patient on D5NS at 75 mL per hour as patient remains nothing by mouth. 01/28 patient examined bedside. Appears more comfortable but endorses fatigue and tiredness. She does have significant abdominal pain and continues to have multiple bowel movements though they're getting softer as compared to on admission. Patient continues to remain on D5NS for hydration. Vitals this morning suggests a temp of 98.7 pulse 79 and respiratory rate 18 blood pressure 132/75. On evaluation of patient's blood work patient continues to remain leukopenic with WBC 0.2 hemoglobin improved to 7.9 with no need for transfusion today. CMP suggests a sodium 138 chloride 1:15 CO2 17 BUN 21 and creatinine 0.94 glucose 111 calcium 8 stool culture is pending. Blood culture from 01/25 suggests Klebsiella final report is not finalized. Patient continued to remain nothing by mouth and supportive care need to be provided. 01/29: Examined at the bedside. She is able to answer questions and is alert to self and place. Nursing does state that the patient was quite confused this morning and pulled out both of her IVs. She is complaining of vaginal pressure and discomfort. A repeat UA was sent which was negative. She continues to have diarrhea. Patient remains afebrile, heart rate 84, respirations 18, blood pressure 151/63 pulse ox 98% on room air. WC is increased to 0.7, RBC 2.65, hemoglobin 8.7, platelets 38, potassium 3.6, BUN 12, creatinine 0.82. 01/30: Examined at bedside. She is able to answer questions and alert to self and place. She does have episodes of confusion. Continues to have diarrhea which is showing improvement. Her W BC is increased to 2.7, hemoglobin 8.9, hematocrit 25.2, platelets 47. She remains afebrile, pulse rate 79, respi rations 18, blood pressure 144/73, pulse ox a 96% on room air. REVIEW OF SYSTEMS Constitutional: No fever, no chills, no night sweats. No weight change. Report s weakness, reports fatigue Reports lethargy. No daytime sleepiness. EENT: No headache. No blurred vision or double vision, no loss of vision. No loss of Hearing, no ringing in the ears, no dizziness. No nasal drainage or congestion. No epistaxis. No sore throat. Lungs: No shortness of breath, cough, no sputum production. No wheezing. Cardiovascular: No chest pain, no lower extremity edema. No palpitations. No paroxysmal nocturnal dyspnea. No orthopnea. No lightheadedness or dizziness. No syncopal episodes. Abdominal: Reports abdominal pain improving. No nausea, vomiting. Reports diarrhea improved. No constipation. No bloody or tarry stools.. No loss of appetite. Genitourinary: No dysuria, increased frequency, urgency. No urinary retention. Musculoskeletal: Reports myalgias. Reports muscle weakness, Reports gait dysfunction, no frequent falls. No back pain. No neck pain. Integumentary: No wounds, no lesions. No rash or pruritus. No unusual bruising. Neurologic: No aphasia. No facial droop. No change in mentation. No head injury. No headache. No paralysis. No paresthesia. Psychiatric: No depression. No anxiety. No mood swings. Endocrine: No abnormal blood sugars. PHYSICAL EXAMINATION Gen: This is an 80-year-old female. Patient is resting in bed. She is slightly confused. HEENT: Head is atraumatic, normocephalic. Pupils equal, round. Sclerae is ani cteric. NECK: Supple. No JVD. No lymphadenopathy. No thyromegaly. LUNGS: Clear to auscultation. No wheezes or rhonchi. No intercostal retractions. HEART: regular rate and rhythm. No murmur. ABDOMEN: Soft. Bowel sounds are present. No masses. Mild generalized tenderness. EXTREMITIES: No pedal edema. No calf tenderness. Dorsalis pedis palpable bilaterally. NEUROLOGICAL: Patient is awake, alert and oriented to person and place. Cranial nerves 2 through 12 are grossly intact. Generalized weakness noted. ASSESSMENT AND PLAN 1. Neutropenic sepsis. Patient is on cefepime and Flagyl. C. diff discontinued by infectious disease. C. diff negative and culture, oncology consult appreciated, infectious disease consult appreciated, blood cultures noted above. 2. Klebsiella pneumoniae bacteremia from preliminary report. Continue current antibiotics. Consult with infectious disease. 3. Abdominal pain and diarrhea secondary to severe infectious enterocolitis r ule out IBD fecal occult negative CAT scan of the abdomen and pelvis with contrast severe enterocolitis. Fecal occult negative ruled out ischemic bowel disease. Continue Questran 4 g twice daily, Lomotil 3 times daily as needed. 4. Pancytopenia secondary to bladder cancer and chemotherapy. Patient has been started on Zarxio oncology. 5. Dehydration secondary to diarrhea. Continue IV fluids DEXTROSE 0.9 normal saline at 75 mL per hour. 6. Bladder cancer receiving chemotherapy. Oncology consult appreciated. 7. Infectious encephalopathy. Improved Continue above treatment. 8. Lactic acidosis secondary to sepsis. Continue protocol. 9. Hypertension. Continue losartan 100 mg daily, Minipress 2 mg daily 10. Hyperlipidemia. Continue Lipitor 10 mg at bedtime. 11. Paroxysmal atrial fibrillation. Continue Toprol-XL 100 mg daily, eliquis on hold due to thrombocytopenia. 12. History of breast cancer. Continue Arimidex 1 mg daily. 13. Gastroesophageal reflux disease and GI prophylaxis. Continue famotidine 20 mg daily. 14. Mild dementia. Continue Aricept 10 mg daily and Namenda 10 mg twice daily 15. Restless leg syndrome. Continue Requip 0.5 mg twice daily. 16. COVID-19 testing negative. Patient has been hospitalized during a pandemic. 17. GI prophylaxis Pepcid 20 mg by mouth daily 18. DVT prophylaxis: Sequential compression garments DISCHARGE PLAN Likely return home possibly Sunday or Sunday. PT and OT consults added. Impression and plan of care have been directed as dictated by the signing physician. Luz Vega nurse practitioner acting as scribe for signing physician. Objective - Vital Signs Vital signs: Vital Signs Temp 97.5 F L 01/30/21 04:12 Pulse 79 01/30/21 04:12 Resp 18 01/30/21 04:12 BP 144/73 01/30/21 04:12 Pulse Ox 96 01/30/21 04:12 Intake & Output 01/29/21 01/30/21 01/30/21 18:59 06:59 18:59 Intake Total 1100 Balance 1100 Intake: Intake, IV Titration 1100 Amount Cefepime 2 gm In Sodium 100 Chloride 0.9% 100 ml @ 25 mls/hr IVPB Q8H [facility] Rx#: [id number] D5-0.9% NaCl with KCl 20 900 Meq/l 1,000 ml @ 75 mls/ hr IV .[id number] [facility] Rx#: [id number] metroNIDAZOLE-NS PMX 500 100 mg In Saline 1 100ml.bag @ 100 mls/hr IVPB Q8H [facility] Rx#:[id number] Other: Voiding Method Diaper # Voids 1 2 # Bowel Movements 3 4 - Labs CBC & Chem 7: 01/30/21 06:20 01/29/21 06:36 Labs: Abnormal Lab Results - Last 24 Hours (Table) 01/30/21 01/30/21 Range/Units 06:20 06:20 WBC 2.7 L (3.8-10.6) k/uL RBC 2.75 L (3.80-5.40) m/uL Hgb 8.9 L (11.4-16.0) gm/dL Hct 25.2 L (34.0-46.0) % Plt Count 47 L (150-450) k/uL Lymphocytes # (Manual) 0.49 L (1.0-4.8) k/uL PT 13.2 H (9.0-12.0) sec INR 1.3 H (<1.2) Fibrinogen 941 H (200-500) mg/dL D-Dimer 6.83 H (<0.60) mg/L FEU Microbiology - Last 24 Hours (Table) 01/27/21 16:00 Stool Culture - Preliminary Stool 01/25/21 13:10 Stool Culture - Final Stool
--- NOTE | 2021-01-30 11:09 | P.PN ---
Subjective Progress Note Date: 01/30/21 Principal diagnosis: Diarrhea The patient is seen lying in bed today more awake and alert. She reports 2 loose bowel movements today. No abdominal pain reported. Objective - Vital Signs Vital signs: Vital Signs Temp 97.5 F L 01/30/21 04:12 Pulse 79 01/30/21 04:12 Resp 18 01/30/21 04:12 BP 144/73 01/30/21 04:12 Pulse Ox 96 01/30/21 04:12 Intake & Output 01/29/21 01/30/21 01/30/21 18:59 06:59 18:59 Intake Total 1100 Balance 1100 Intake: Intake, IV Titration 1100 Amount Cefepime 2 gm In Sodium 100 Chloride 0.9% 100 ml @ 25 mls/hr IVPB Q8H [facility] Rx#: [id number] D5-0.9% NaCl with KCl 20 900 Meq/l 1,000 ml @ 75 mls/ hr IV .[id number] [facility] Rx#: [id number] metroNIDAZOLE-NS PMX 500 100 mg In Saline 1 100ml.bag @ 100 mls/hr IVPB Q8H [facility] Rx#:[id number] Other: Voiding Method Diaper # Voids 1 1 # Bowel Movements 3 - Exam On physical examination, patient appears comfortable in no apparent distress. HEAD: Normocephalic, atraumatic. EYES: No scleral icterus. No conjunctival injection. MOUTH: No lesions, tongue midline. NECK: Trachea midline, no gross abnormalities. ABDOMEN: Soft, nontender to palpation. Bowel sounds are positive. No organomegaly. No guarding or rigidity. EXTREMITIES: No pedal edema. SKIN: No rashes, no jaundice. NEUROLOGIC: Alert and oriented to person and place. - Labs CBC & Chem 7: 01/30/21 06:20 01/29/21 06:36 Labs: Abnormal Lab Results - Last 24 Hours (Table) 01/30/21 01/30/21 Range/Units 06:20 06:20 WBC 2.7 L (3.8-10.6) k/uL RBC 2.75 L (3.80-5.40) m/uL Hgb 8.9 L (11.4-16.0) gm/dL Hct 25.2 L (34.0-46.0) % Plt Count 47 L (150-450) k/uL Lymphocytes # (Manual) 0.49 L (1.0-4.8) k/uL PT 13.2 H (9.0-12.0) sec INR 1.3 H (<1.2) Fibrinogen 941 H (200-500) mg/dL D-Dimer 6.83 H (<0.60) mg/L FEU Microbiology - Last 24 Hours (Table) 01/27/21 16:00 Stool Culture - Preliminary Stool 01/25/21 13:10 Stool Culture - Final Stool Assessment and Plan (1) Neutropenic colitis Narrative/Plan: 80-year-old female with multiple medical comorbidities including current treatment of bladder cancer on chemotherapy who presented to complaints of weakness and diarrhea. Patient found to be severely neutropenic with urinary tract infection currently receiving broad-spectrum antibiotic therapy. Patient also been complaining of profuse watery nonbloody diarrhea. Computed tomography scan of the abdomen and pelvis performed in evaluation with findings of a severe multifocal enterocolitis with differential including inflammatory, infectious or ischemic etiology. 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 Currently testing for Clostridium difficile has been negative with other stool cultures pending. Overall symptomatically improving however still had 2 loose bowel movements today. Current Visit: Yes Status: Acute Code(s): D70.9 - NEUTROPENIA, UNSPECIFIED; K52.89 - OTHER SPECIFIED NONINFECTIVE GASTROENTERITIS AND COLITIS SNOMED Code(s): 361280455 (2) Febrile neutropenia Current Visit: Yes Status: Acute Code(s): D70.9 - NEUTROPENIA, UNSPECIFIED; R50.81 - FEVER PRESENTING WITH CONDITIONS CLASSIFIED ELSEWHERE SNOMED Code(s): 383582983 (3) S/P mastectomy, bilateral Current Visit: No Status: Acute Code(s): Z90.13 - ACQUIRED ABSENCE OF BILATERAL BREASTS AND NIPPLES SNOMED Code(s): 034755939 Plan: Supportive care Nothing by mouth except for ice chips Continue broad-spectrum antibiotic therapy Stool cultures/studies pending Testing for Clostridium difficile negative Continue twice a day cholestyramine Continue treatment with antidiarrheals/Lomotil Continue to monitor stool output Thank you for allowing us to participate in the care of the patient
[2021-01-30] MEDS: DIPHENOX-ATROP 2.5-0.025 MG 1 EACH TAB PO PRN (11:12)
[2021-01-30] MEDS: CHOLESTYRAMINE (WITH SUGAR) 4 GM PACKET PO SCH ×2 (11:12→16:49)
[2021-01-30 11:27] LABS: African American GFR (CKD) 61.2 (60.0-200.0); Albumin 3.1 g/dL (3.80-4.90); Albumin/Globulin Ratio 1.55 (1.60-3.17); Anion Gap 7.4 mmol/L (4.00-12.00); Calcium 8.2 mg/dL (8.7-10.3); Carbon Dioxide 17.6 mmol/L (21.6-31.8); Non-African American GFR(CKD) 52.8 (60.0-200.0); Potassium 3.5 mmol/L (3.5-5.5); Total Bilirubin 0.5 mg/dL (0.3-1.2); Total Protein 5.1 g/dL (6.2-8.2)
[2021-01-30] MEDS: D5-0.9% NACL WITH KCL 20 MEQ/L 1,000 ML IV SCH ×2 (12:59→16:49)
[2021-01-30] MEDS: ONDANSETRON 4 MG/2 ML VIAL IVP PRN (15:27)
[2021-01-30] MEDS: FILGRASTIM-SNDZ 480 MCG/0.8 ML SYRINGE SQ SCH (16:49)
--- NOTE | 2021-01-30 16:51 | PN ---
PROGRESS NOTE DATE OF SERVICE: 01/30/2021 REASON FOR FOLLOWUP: Klebsiella bacteremia secondary to colitis. INTERVAL HISTORY: The patient is currently afebrile. The patient is feeling better today, breathing comfortably. No chest pain, shortness of breath or cough. Abdominal pain is currently controlled. No vomiting. No diarrhea. PHYSICAL EXAMINATION: Blood pressure 127/64, pulse 68, temperature 97.5. She is 98% on room air. General description: The patient is a middle-aged female lying in bed in no distress. Respiratory system: Unlabored breathing, clear to auscultation anteriorly. Heart S1, S2. Regular rate and rhythm. ABDOMEN: Soft, mildly distended. No guarding. No rigidity. LABORATORY DATA: Hemoglobin 8.1, white count 5.7. BUN of 20, creatinine 1.0. DIAGNOSTIC IMPRESSION AND PLAN: Patient with klebsiella pneumonia bacteremia, source likely colitis. Patient is covered with cefepime and Flagyl and has shown clinical response. Continue current antibiotics and monitor clinical course closely. Family at the bedside. Questions were answered. MMODL / IJN: [id number] /
[2021-01-30] MEDS: ATORVASTATIN 10 MG TAB PO SCH (20:39)
[2021-01-31] MEDS: CEFEPIME 2 GM in SODIUM CHLORIDE 0.9% 100 ML IVPB SCH ×4 (00:34→23:54)
[2021-01-31] MEDS: HYDROmorphone 1 MG/ML 1 ML SYRINGE IVP PRN (04:47)
[2021-01-31] MEDS: metroNIDAZOLE-NS PMX 500 MG in SALINE 1 100ML.BAG IVPB SCH ×2 (04:48→13:38)
[2021-01-31 07:46] LABS: Basophils % (A) 1 %; Eosinophils # (A) 0.1 k/uL (0-0.7); Eosinophils % (A) 1 %; HCT 22.5 % (34.0-46.0); HGB 7.9 gm/dL (11.4-16.0); Lymphocytes # (A) 0.3 k/uL (1.0-4.8); Lymphocytes % (A) 6 %; MCV 91.4 fL (80.0-100.0); Mean Platelet Volume 8.6; Monocytes # (A) 0.4 k/uL (0-1.0); Monocytes % (A) 8 %; Neutrophils # (A) 3.6 k/uL (1.3-7.7); RBC 2.46 m/uL (3.80-5.40); RDW 13.9 % (11.5-15.5); WBC 4.5 k/uL (3.8-10.6)
[2021-01-31 08:05] LABS: Platelet Count 43 k/uL (150-450)
[2021-01-31 09:39] LABS: Band Neutrophils % 2 %; Eosinophils # (M) 0.09 k/uL (0-0.7); Lymphocytes # (M) 0.59 k/uL (1.0-4.8); Monocytes # (M) 0.45 k/uL (0-1.0); Myelocytes # (M) 0.05 k/uL (0); Myelocytes % 1 %; Neutrophils % (M) 75 %; Nucleated Red Blood Cells 0 /100 WBC (0-0); Total Cells Counted 200
[2021-01-31] MEDS: ANASTROZOLE 1 MG TAB PO SCH (10:46)
[2021-01-31] MEDS: FAMOTIDINE 20 MG TAB PO SCH (10:47)
[2021-01-31] MEDS: ESCITALOPRAM 10 MG TAB PO SCH (10:47)
[2021-01-31] MEDS: MEMANTINE 10 MG TAB PO SCH ×2 (10:47→21:13)
[2021-01-31] MEDS: METOPROLOL SUCCINATE (ER) 100 MG TAB.ER.24H PO SCH (10:47)
[2021-01-31] MEDS: DONEPEZIL 10 MG TAB PO SCH (10:47)
[2021-01-31] MEDS: PRAZOSIN 1 MG CAP PO SCH (10:47)
[2021-01-31] MEDS: LOSARTAN 50 MG TAB PO SCH (10:59)
[2021-01-31] MEDS: CHOLESTYRAMINE (WITH SUGAR) 4 GM PACKET PO SCH ×2 (11:00→17:47)
--- NOTE | 2021-01-31 11:10 | P.PN ---
Subjective Progress Note Date: 01/31/21 Principal diagnosis: Persistent diarrhea This is an 80-year-old pleasant female with multiple medical comorbidities including current treatment for bladder cancer and past medical history for breast cancer with prior ischemic colitis requiring hemicolectomy and subsequently re-anastomosis and current treatment of bladder cancer for which she is receiving chemotherapy. The patient presented to the emergency department for increased frequency of loose watery bowel movements. She has not had any signs or symptoms of a GI bleed. Oncology is following patient. Closely. Today she is seen and examined and states she has no abdominal pain, states her diarrhea has improved significantly, denies any blood from the rectum, nausea or vomiting. Patient has been neutropenic, her WBC today is 4.5. She has been nothing by mouth except ice chips. Nursing did state she had 2 l arge loose bowel movements yesterday, none reported at this morning. Objective - Vital Signs Vital signs: Vital Signs Temp 97.8 F 01/31/21 05:00 Pulse 118 H 01/31/21 05:00 Resp 20 01/31/21 05:00 BP 126/85 01/31/21 10:05 Pulse Ox 97 01/31/21 05:00 Intake & Output 01/30/21 01/31/21 01/31/21 18:59 06:59 18:59 Intake Total 850 0 Balance 850 0 Intake: Intake, IV Titration 400 Amount Cefepime 2 gm In Sodium 200 Chloride 0.9% 100 ml @ 25 mls/hr IVPB Q8H [facility] Rx#: [id number] metroNIDAZOLE-NS PMX 500 200 mg In Saline 1 100ml.bag @ 100 mls/hr IVPB Q8H [facility] Rx#:[id number] Oral 450 0 Other: Voiding Method Diaper Incontinent # Voids 1 5 # Bowel Movements 5 - Exam General appearance: The patient is alert, slightly confused, appears in no acute distress. HET: Head is normocephalic and atraumatic. Conjunctiva pink. Sclera anicteric. Neck: Supple without lymphadenopathy. Abdomen: Soft, nontender, nondistended with bowel sounds. No guarding or rigidity. Extremities: Normal skin color and turgor. No pedal edema Skin: No rashes, no jaundice Neurological: Pleasantly confused. - Labs CBC & Chem 7: 01/31/21 06:46 01/30/21 06:20 Labs: Abnormal Lab Results - Last 24 Hours (Table) 01/30/21 01/31/21 Range/Units 06:20 06:46 RBC 2.46 L (3.80-5.40) m/uL Hgb 7.9 L (11.4-16.0) gm/dL Hct 22.5 L (34.0-46.0) % Plt Count 43 L (150-450) k/uL Lymphocytes # 0.3 L (1.0-4.8) k/uL Lymphocytes # (Manual) 0.59 L (1.0-4.8) k/uL Myelocytes # (Manual) 0.05 H (0) k/uL Chloride 118 H (96-109) mmol/L Carbon Dioxide 17.6 L (21.6-31.8) mmol/L Est GFR (CKD-EPI)NonAf 52.8 L (60.0-200.0) Glucose 115 H (70-110) mg/dL Calcium 8.2 L (8.7-10.3) mg/dL AST 9 L (13-35) U/L Total Protein 5.1 L (6.2-8.2) g/dL Albumin 3.10 L (3.80-4.90) g/dL Albumin/Globulin Ratio 1.55 L (1.60-3.17) g/dL Microbiology - Last 24 Hours (Table) 01/27/21 16:00 Stool Culture - Final Stool 01/25/21 13:10 Stool Culture - Final Stool Assessment and Plan (1) Neutropenic colitis Narrative/Plan: 80-year-old female with multiple medical comorbidities including current treatment of bladder cancer on chemotherapy who presented to complaints of weakness and diarrhea. Patient found to be severely neutropenic with urinary tract infection currently receiving broad-spectrum antibiotic therapy. Patient also been complaining of profuse watery nonbloody diarrhea. Computed tomography scan of the abdomen and pelvis performed in evaluation with findings of a severe multifocal enterocolitis with differential including inflammatory, infectious or ischemic etiology. 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 Currently testing for Clostridium difficile has been negative with other stool cultures pending. Neutropenia resolving, today's WBC 4.5. Will advance to a clear liquid diet. Current Visit: Yes Status: Acute Code(s): D70.9 - NEUTROPENIA, UNSPECIFIED; K52.89 - OTHER SPECIFIED NONINFECTIVE GASTROENTERITIS AND COLITIS SNOMED Code(s): 652706489 (2) Febrile neutropenia Current Visit: Yes Status: Acute Code(s): D70.9 - NEUTROPENIA, UNSPECIFIED; R50.81 - FEVER PRESENTING WITH CONDITIONS CLASSIFIED ELSEWHERE SNOMED Code(s): 017360752 (3) Bladder cancer Current Visit: No Status: Acute Code(s): C67.9 - MALIGNANT NEOPLASM OF BLADDER, UNSPECIFIED SNOMED Code(s): 126721703 (4) History of breast cancer Current Visit: No Status: Acute Code(s): Z85.3 - PERSONAL HISTORY OF MALIGNANT NEOPLASM OF BREAST SNOMED Code(s): 852082352 Plan: 1. Supportive care 2. Will advance to clear liquid diet 3. Continue broad-spectrum antibiotic therapy 4. Stool cultures/studies pending 5. Testing for Clostridium difficile negative 6. Continue twice a day cholestyramine 7. Continue treatment with antidiarrheals/Lomotil 8. Dicyclomine 10 mg 3 times a day as needed 9. Continue to monitor stool output Thank you for this consultation, we will continue to follow Dr.K Guzman I agree with the dictator's note, documented as a scribe by Teresa Batista.
[2021-01-31 11:45] LABS: African American GFR (CKD) 94.2 (60.0-200.0); Anion Gap 3.4 mmol/L (4.00-12.00); BUN/Creat Ratio 22.86 Ratio (12.00-20.00); Calcium 7.7 mg/dL (8.7-10.3); Carbon Dioxide 18.6 mmol/L (21.6-31.8); Non-African American GFR(CKD) 81.3 (60.0-200.0); Potassium 3.2 mmol/L (3.5-5.5)
--- NOTE | 2021-01-31 13:09 | P.PN ---
Subjective Progress Note Date: 01/31/21 Subjective Progress Note Date: 01/30/21 This is an 80-year-old female patient of Dr. 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 Patient presented to [facility] emergency center after undergoing chemotherapy yesterday. Patient has had increasing weakness over the past couple of days as well as diarrhea. She denies any blood in her stools. Patient continues to have worsening weakness, mild mental status changes and generalized abdominal pain. No nausea or vomiting. No chest pain. No shortness of breath. No fever or chills. Patient was afebrile, heart rate 75, blood pressure 146/64, pulse ox 96% on room air. WBC 0.2. Hemoglobin 10, platelet count 85. Sodium 132, potassium 4.5, chloride 102, CO2 19, BUN 17 and creatinine 1.05. Blood sugar 151. Total bilirubin 1.6, AST 22, ALT 21, alkaline phosphatase 55. Lipase less than 1010. Lactic acid 3.7 and repeat 1.8. Troponin negative. Urinalysis cloudy, moderate blood. Coronavirus PCR not detected. Chest x-ray reveals unchanged appearance. No acute cardiopulmonary process. Patient was started on cefepime, vancomycin, admitted to the oncology unit with consult for infectious disease and oncology. CAT scan of the abdomen and pelvis has been ordered as patient does have history of ischemic bowel. Stool specimen to be sent for C. difficile toxin and other stool studies. 01/27 patient examined bedside. Is much alert and answering questions appropriately. Diarrhea has improved. Fecal occult was negative for blood. C. diff is negative. Fresh patient continues to have significant tenderness in the abdomen. CT abdomen is positive for severe enterocolitis. Infectious disease recommended switching antibiotics to cefepime and Flagyl. Oncology evaluated the patient and initiated patient on filgrastim daily. GI consult placed to rule out IBD. yersenia stool cultures, lactoferrin, CALPROTECTIN levels ordered. Continue to remain an nothing by mouth diet. Status post 1 unit PRBC today as patient's hemoglobin remains low at 6.4, WBC remains a 0.1, platelet 2815 was in 19 5 d-dimer 3.22, potassium 3.2 chloride 110 bicarb 18.9. We'll replete pat maritant's potassium. Start patient on D5NS at 75 mL per hour as patient remains nothing by mouth. 01/28 patient examined bedside. Appears more comfortable but endorses fatigue and tiredness. She does have significant abdominal pain and continues to have multiple bowel movements though they're getting softer as compared to on admission. Patient continues to remain on D5NS for hydration. Vitals this morning suggests a temp of 98.7 pulse 79 and respiratory rate 18 blood pressure 132/75. On evaluation of patient's blood work patient continues to remain leukopenic with WBC 0.2 hemoglobin improved to 7.9 with no need for transfusion today. CMP suggests a sodium 138 chloride 1:15 CO2 17 BUN 21 and creatinine 0.94 glucose 111 calcium 8 stool culture is pending. Blood culture from 01/25 suggests Klebsiella final report is not finalized. Patient continued to remain nothing by mouth and supportive care need to be provided. 01/29: Examined at the bedside. She is able to answer questions and is alert to self and place. Nursing does state that the patient was quite confused this morning and pulled out both of her IVs. She is complaining of vaginal pressure and discomfort. A repeat UA was sent which was negative. She continues to have diarrhea. Patient remains afebrile, heart rate 84, respirations 18, blood pressure 151/63 pulse ox 98% on room air. WC is increased to 0.7, RBC 2.65, hemoglobin 8.7, platelets 38, potassium 3.6, BUN 12, creatinine 0.82. 01/30: Examined at bedside. She is able to answer questions and alert to self and place. She does have episodes of confusion. Continues to have diarrhea which is showing improvement. Her W BC is increased to 2.7, hemoglobin 8.9, hematocrit 25.2, platelets 47. She remains afebrile, pulse rate 79, respirations 18, blood pressure 144/73, pulse ox a 96% on room air. 01/31: Patient is doing much better so far her neutropenia has improved but she still have significant anemia and thrombocytopenia still on Neupogen daily still seen oncology on regular basis. Continue to have diarrhea and seen gastroenterology but no testing is done at this point. And still been treated for neutropenic colitis which overall with supportive care probiotic and anti- spastic medication doing better. No sign of fever chills or secondary infection at this point the coverage with her antibiotic has been well done. REVIEW OF SYSTEMS Constitutional: No fever, no chills, no night sweats. No weight change. Reports weakness, reports fatigue Reports lethargy. No daytime sleepiness. EENT: No headache. No blurred vision or double vision, no loss of vision. No loss of Hearing, no ringing in the ears, no dizziness. No nasal drainage or congestion. No epistaxis. No sore throat. Lungs: No shortness of breath, cough, no sputum production. No wheezing. Cardiovascular: No chest pain, no lower extremity edema. No palpitations. No paroxysmal nocturnal dyspnea. No orthopnea. No lightheadedness or dizziness. No syncopal episodes. Abdominal: Reports abdominal pain improving. No nausea, vomiting. Reports diarrhea improved. No constipation. No bloody or tarry stools.. No loss of appetite. Genitourinary: No dysuria, increased frequency, urgency. No urinary retention. Musculoskeletal: Reports myalgias. Reports muscle weakness, Reports gait dysfunction, no frequent falls. No back pain. No neck pain. Integumentary: No wounds, no lesions. No rash or pruritus. No unusual bruising. Neurologic: No aphasia. No facial droop. No change in mentation. No head injury. No headache. No paralysis. No paresthesia. Psychiatric: No depression. No anxiety. No mood swings. Endocrine: No abnormal blood sugars. PHYSICAL EXAMINATION Gen: This is an 80-year-old female. Patient is resting in bed. She is slightly confused. HEENT: Head is atraumatic, normocephalic. Pupils equal, round. Sclerae is anicteric. NECK: Supple. No JVD. No lymphadenopathy. No thyromegaly. LUNGS: Clear to auscultation. No wheezes or rhonchi. No intercostal retractions. HEART: regular rate and rhythm. No murmur. ABDOMEN: Soft. Bowel sounds are present. No masses. Mild generalized tenderness. EXTREMITIES: No pedal edema. No calf tenderness. Dorsalis pedis palpable bilaterally. NEUROLOGICAL: Patient is awake, alert and oriented to person and place. Cranial nerves 2 through 12 are grossly intact. Generalized weakness noted. ASSESSMENT AND PLAN 1. Neutropenic sepsis. Patient is on cefepime and Flagyl. C. diff was excluded with testing, patient still seen oncology and infectious disease. 2. Klebsiella pneumoniae bacteremia from preliminary report. Continue current antibiotics. Consult with infectious disease. 3. Abdominal pain and diarrhea secondary to severe infectious enterocolitis rule out IBD fecal occult negative CAT scan of the abdomen and pelvis with contrast severe enterocolitis. Fecal occult negative ruled out ischemic bowel disease. Continue Questran 4 g twice daily, Lomotil 3 times daily as needed. Much better respond to medication so far no reason for colonoscopy by GI 4. Pancytopenia secondary to bladder cancer and chemotherapy. Patient has been started on Zarxio oncology. 5. Dehydration secondary to diarrhea. Continue IV fluids DEXTROSE 0.9 normal saline at 75 mL per hour. 6. Bladder cancer receiving chemotherapy. Oncology consult appreciated. 7. Infectious encephalopathy. Much better her memory and confusion has s ignificantly improved. 8. Lactic acidosis secondary to sepsis. Continue protocol. 9. Hypertension. Continue losartan 100 mg daily, Minipress 2 mg daily 10. Hyperlipidemia. Continue Lipitor 10 mg at bedtime. 11. Paroxysmal atrial fibrillation. Continue Toprol-XL 100 mg daily, anticoagulation will be in health till thrombocytopenia improved. 12. History of breast cancer. Continue Arimidex 1 mg daily. 13. Gastroesophageal reflux disease and GI prophylaxis. Continue famotidine 20 mg daily. 14. Mild dementia. Continue Aricept 10 mg daily and Namenda 10 mg twice daily 15. Restless leg syndrome. Continue Requip 0.5 mg twice daily. 16. COVID-19 testing negative. Patient has been hospitalized during a pandemic. 17. GI prophylaxis Pepcid 20 mg by mouth daily 18. DVT prophylaxis: Sequential compression garments DISCHARGE PLAN Continue PTOT if patient is able to go home possibly in 48 hours. Objective - Vital Signs Vital signs: Vital Signs Temp 97.8 F 01/31/21 05:00 Pulse 118 H 01/31/21 05:00 Resp 20 01/31/21 05:00 BP 110/73 01/31/21 05:00 Pulse Ox 97 01/31/21 05:00 Intake & Output 01/30/21 01/30/21 01/31/21 06:59 18:59 06:59 Intake Total 1100 850 0 Balance 1100 850 0 Intake: Intake, IV Titration 1100 400 Amount Cefepime 2 gm In Sodium 100 200 Chloride 0.9% 100 ml @ 25 mls/hr IVPB Q8H [facility] Rx#: [id number] D5-0.9% NaCl with KCl 20 900 Meq/l 1,000 ml @ 75 mls/ hr IV .[id number] [facility] Rx#: [id number] metroNIDAZOLE-NS PMX 500 100 200 mg In Saline 1 100ml.bag @ 100 mls/hr IVPB Q8H [facility] Rx#:[id number] Oral 450 0 Other: Voiding Method Diaper Diaper Incontinent # Voids 1 5 # Bowel Movements 5 - Labs CBC & Chem 7: 01/31/21 06:46 01/31/21 06:46 Labs: Abnormal Lab Results - Last 24 Hours (Table) 01/30/21 01/30/21 01/30/21 Range/Units 06:20 06:20 06:20 WBC 2.7 L (3.8-10.6) k/uL RBC 2.75 L (3.80-5.40) m/uL Hgb 8.9 L (11.4-16.0) gm/dL Hct 25.2 L (34.0-46.0) % Plt Count 47 L (150-450) k/uL Lymphocytes # (Manual) 0.49 L (1.0-4.8) k/uL PT 13.2 H (9.0-12.0) sec INR 1.3 H (<1.2) Fibrinogen 941 H (200-500) mg/dL D-Dimer 6.83 H (<0.60) mg/L FEU Chloride 118 H (96-109) mmol/L Carbon Dioxide 17.6 L (21.6-31.8) mmol/L Est GFR (CKD-EPI)NonAf 52.8 L (60.0-200.0) Glucose 115 H (70-110) mg/dL Calcium 8.2 L (8.7-10.3) mg/dL AST 9 L (13-35) U/L Total Protein 5.1 L (6.2-8.2) g/dL Albumin 3.10 L (3.80-4.90) g/dL Albumin/Globulin Ratio 1.55 L (1.60-3.17) g/dL Microbiology - Last 24 Hours (Table) 01/27/21 16:00 Stool Culture - Final Stool
[2021-01-31 14:18] VITALS: BMI 24.3
--- NOTE | 2021-01-31 14:40 | P.PN ---
Subjective Progress Note Date: 01/31/21 Principal diagnosis: Bacteremia and DIarrhea and neutropenia WBC improving, Increased diet today. She is still having diarrhea, although tenderness in abdomen is improved. Will increase questran and add budesomide Objective - Vital Signs Vital signs: Vital Signs Temp 97.3 F L 01/31/21 12:13 Pulse 55 L 01/31/21 12:13 Resp 17 01/31/21 12:13 BP 120/82 01/31/21 12:13 Pulse Ox 95 01/31/21 12:13 Intake & Output 01/30/21 01/31/21 01/31/21 18:59 06:59 18:59 Intake Total 850 0 Balance 850 0 Weight 72.575 kg Intake: Intake, IV Titration 400 Amount Cefepime 2 gm In Sodium 200 Chloride 0.9% 100 ml @ 25 mls/hr IVPB Q8H [facility] Rx#: [id number] metroNIDAZOLE-NS PMX 500 200 mg In Saline 1 100ml.bag @ 100 mls/hr IVPB Q8H [facility] Rx#:[id number] Oral 450 0 Other: Voiding Method Diaper Diaper Incontinent Incontinent # Voids 1 5 # Bowel Movements 5 - Exam Appears weak and ill Head: NCNNT Dry mucus membrames Lungs: Increased effort Abdomen: Tenderness to palpation Heart: Tachy, ir Ext: Trace BLE Edema - Labs CBC & Chem 7: 01/31/21 06:46 01/31/21 06:46 Labs: Abnormal Lab Results - Last 24 Hours (Table) 01/31/21 01/31/21 Range/Units 06:46 06:46 RBC 2.46 L (3.80-5.40) m/uL Hgb 7.9 L (11.4-16.0) gm/dL Hct 22.5 L (34.0-46.0) % Plt Count 43 L (150-450) k/uL Lymphocytes # 0.3 L (1.0-4.8) k/uL Lymphocytes # (Manual) 0.59 L (1.0-4.8) k/uL Myelocytes # (Manual) 0.05 H (0) k/uL Potassium 3.2 L (3.5-5.5) mmol/L Chloride 120 H (96-109) mmol/L Carbon Dioxide 18.6 L (21.6-31.8) mmol/L Anion Gap 3.40 L (4.00-12.00) mmol/L BUN/Creatinine Ratio 22.86 H (12.00-20.00) Ratio Glucose 120 H (70-110) mg/dL Calcium 7.7 L (8.7-10.3) mg/dL Microbiology - Last 24 Hours (Table) 01/27/21 16:00 Stool Culture - Final Stool 01/25/21 13:10 Stool Culture - Final Stool Assessment and Plan (1) Neutropenic colitis Current Visit: Yes Status: Acute Code(s): D70.9 - NEUTROPENIA, UNSPECIFIED; K52.89 - OTHER SPECIFIED NONINFECTIVE GASTROENTERITIS AND COLITIS SNOMED Code(s): 346023083 (2) Thrombocytopenia Current Visit: Yes Status: Acute Code(s): D69.6 - THROMBOCYTOPENIA, UNSPECIFIED SNOMED Code(s): 696690215 (3) Normochromic anemia Current Visit: Yes Status: Acute Code(s): D64.9 - ANEMIA, UNSPECIFIED SNOMED Code(s): 38628329 (4) Bacteremia Current Visit: Yes Status: Acute Code(s): R78.81 - BACTEREMIA SNOMED Code(s): 9599949 (5) Bacteremia due to Klebsiella pneumoniae Current Visit: Yes Status: Acute Code(s): R78.81 - BACTEREMIA; B96.1 - KLEBSIELLA PNEUMONIAE THE CAUSE OF DISEASES CLASSD [facility] SNOMED Code(s): 318257345249 (6) Febrile neutropenia Current Visit: Yes Status: Acute Code(s): D70.9 - NEUTROPENIA, UNSPECIFIED; R50.81 - FEVER PRESENTING WITH CONDITIONS CLASSIFIED ELSEWHERE SNOMED Code(s): 811261700 Plan: Febrile Neutropenia: -Torres Cultures - Broad spectrum Antibiotics - Resolving Neutropenic Colitis: - Improving - Abdominal imaging reveals inflammatory etiology Thrombocytopenia: - Hold Eliquis PLatelets 50K - NO NSAIDS (Tordol and Ibuprofen D/C's), ASA, Anticoagulation at this time Anemia: Secondary to chemo/Radiation: - stable 7.9 Bacteremia: - Blood Cultures POsitive for Klebsiella Pneumonae - Dr. Childs is following from [facility] Urothelial Carcinoma: - Recently completed Chemotherapy - Almost completed with radiation therapy History of Breast Cancer: - COntinues on Arimidex Plan: - Increase to clears today - Increase Questran - CBC, CMP in am - Add budesomide
[2021-01-31] MEDS: FILGRASTIM-SNDZ 480 MCG/0.8 ML SYRINGE SQ SCH (17:47)
[2021-01-31 17:55] LABS: Glucose,Whole Blood 99 mg/dL (75-99)
[2021-01-31] MEDS: ATORVASTATIN 10 MG TAB PO SCH (21:12)
[2021-01-31] MEDS: metroNIDAZOLE 500 MG TAB PO SCH (21:13)
[2021-01-31] MEDS: D5-0.9% NACL WITH KCL 20 MEQ/L 1,000 ML IV SCH (21:15)
--- NOTE | 2021-01-31 22:22 | PN ---
PROGRESS NOTE DATE OF SERVICE: 01/31/2021 REASON FOR FOLLOWUP: Colitis and Klebsiella bacteremia. INTERVAL HISTORY: The patient is currently afebrile. The patient mentioned she is feeling better, breathing comfortably. Denies having any chest pain or shortness of breath or cough. Her abdominal pain has decreased in intensity. No nausea, vomiting or diarrhea. PHYSICAL EXAMINATION: Her blood pressure is 118/71 with a pulse of 134, temperature 97.9. She is 97% on room air. General description is an elderly female lying in bed in no distress. RESPIRATORY SYSTEM: Unlabored breathing. Clear to auscultation anteriorly. HEART: S1, S2. Regular rate and rhythm. ABDOMEN: Soft. Mildly distended. No guarding or rigidity. LABS: Hemoglobin is 7.9, white count 4.5. BUN of 16, creatinine 0.9. DIAGNOSTIC IMPRESSION AND PLAN: Patient with Klebsiella pneumoniae bacteremia. Source is colitis in this patient with febrile neutropenia. The patient's fever resolved. White count normalized. The patient is covered with cefepime and Flagyl; to continue. Transition to oral antibiotic when stable for discharge per admitting team. Continue supportive care. MMODL / IJN: [id number] /
[2021-01-31 23:10] VITALS: RESP 20
[2021-02-01 06:02] VITALS: BP 134/85; PULSE 104; TEMP 98.4
[2021-02-01] MEDS: metroNIDAZOLE 500 MG TAB PO SCH (06:06)
[2021-02-01] MEDS: D5-0.9% NACL WITH KCL 20 MEQ/L 1,000 ML IV SCH (06:06)
[2021-02-01] MEDS ORDERED: BUDESONIDE ER 3 MG CAPSULE.ER PO SCH (09:00)
[2021-02-01] MEDS: DONEPEZIL 10 MG TAB PO SCH (09:13)
[2021-02-01] MEDS: CHOLESTYRAMINE (WITH SUGAR) 4 GM PACKET PO SCH (09:13)
[2021-02-01] MEDS: FAMOTIDINE 20 MG TAB PO SCH (09:13)
[2021-02-01] MEDS: PRAZOSIN 1 MG CAP PO SCH (09:14)
[2021-02-01] MEDS: LOSARTAN 50 MG TAB PO SCH (09:14)
[2021-02-01] MEDS: ANASTROZOLE 1 MG TAB PO SCH (09:14)
[2021-02-01] MEDS: ESCITALOPRAM 10 MG TAB PO SCH (09:14)
[2021-02-01] MEDS: MEMANTINE 10 MG TAB PO SCH (09:15)
[2021-02-01] MEDS: METOPROLOL SUCCINATE (ER) 100 MG TAB.ER.24H PO SCH (09:15)
[2021-02-01] MEDS: CEFEPIME 2 GM in SODIUM CHLORIDE 0.9% 100 ML IVPB SCH (09:16)
--- NOTE | 2021-02-01 12:36 | P.PN ---
Subjective Progress Note Date: 02/01/21 Principal diagnosis: Persistent diarrhea This is an 80-year-old pleasant female with multiple medical comorbidities including current treatment for bladder cancer and past medical history for breast cancer with prior ischemic colitis requiring hemicolectomy and subsequently re-anastomosis and current treatment of bladder cancer for which she is receiving chemotherapy. The patient presented to the emergency department for increased frequency of loose watery bowel movements. Her neutropenia has improved, she was started on a clear liquid diet yesterday. Primary medicine advanced her diet today. Plan is for discharge home. She states that her diarrhea has improved significantly, denies any abdominal pain, nausea, or vomiting. Objective - Vital Signs Vital signs: Vital Signs Temp 98.4 F 02/01/21 05:00 Pulse 104 H 02/01/21 05:00 Resp 20 02/01/21 05:00 BP 134/85 02/01/21 05:00 Pulse Ox 98 02/01/21 05:00 Intake & Output 01/31/21 02/01/21 02/01/21 18:59 06:59 18:59 Intake Total 700 Output Total 2 Balance 698 Weight 72.575 kg Intake: Intake, IV Titration 400 Amount Cefepime 2 gm In Sodium 100 Chloride 0.9% 100 ml @ 25 mls/hr IVPB Q8H AZEEM Rx#: [id number] D5-0.9% NaCl with KCl 20 300 Meq/l 1,000 ml @ 75 mls/ hr IV .[id number] AZEEM Rx#: [id number] Oral 300 Output: Urine/Stool Mix 2 Other: Voiding Method Diaper Diaper Incontinent Incontinent # Voids 2 - Exam General appearance: The patient is alert, slightly confused, appears in no acute distress. HET: Head is normocephalic and atraumatic. Conjunctiva pink. Sclera anicteric. Neck: Supple without lymphadenopathy. Abdomen: Soft, epigastric tenderness, nondistended with bowel sounds. No guarding or rigidity. Extremities: Normal skin color and turgor. No pedal edema Skin: No rashes, no jaundice Neurological: Pleasantly confused. - Labs CBC & Chem 7: 01/31/21 06:46 01/31/21 06:46 Labs: Abnormal Lab Results - Last 24 Hours (Table) 01/31/21 Range/Units 06:46 Potassium 3.2 L (3.5-5.5) mmol/L Chloride 120 H (96-109) mmol/L Carbon Dioxide 18.6 L (21.6-31.8) mmol/L Anion Gap 3.40 L (4.00-12.00) mmol/L BUN/Creatinine Ratio 22.86 H (12.00-20.00) Ratio Glucose 120 H (70-110) mg/dL Calcium 7.7 L (8.7-10.3) mg/dL Microbiology - Last 24 Hours (Table) 01/31/21 06:46 Blood Culture - Preliminary Blood No Growth after 24 hours 01/27/21 16:00 Stool Culture - Final Stool 01/25/21 13:10 Stool Culture - Final Stool Assessment and Plan (1) Neutropenic colitis Narrative/Plan: 80-year-old female with multiple medical comorbidities including current treatment of bladder cancer on chemotherapy who presented to complaints of weakness and diarrhea. Patient found to be severely neutropenic with urinary tr act infection currently receiving broad-spectrum antibiotic therapy. Patient also been complaining of profuse watery nonbloody diarrhea. Computed tomography scan of the abdomen and pelvis performed in evaluation with findings of a severe multifocal enterocolitis with differential including inflammatory, infectious or ischemic etiology. She does have a history of ischemic colitis requiring hemic olectomy with subsequent reanastomosis in 2016. Currently testing for Clostridium difficile has been negative with other stool cultures pending. Neutropenia resolving, diet advanced per primary medicine team Current Visit: Yes Status: Acute Code(s): D70.9 - NEUTROPENIA, UNSPECIFIED; K52.89 - OTHER SPECIFIED NONINFECTIVE GASTROENTERITIS AND COLITIS SNOMED Code(s): 065987628 (2) Febrile neutropenia Current Visit: Yes Status: Acute Code(s): D70.9 - NEUTROPENIA, UNSPECIFIED; R50.81 - FEVER PRESENTING WITH CONDITIONS CLASSIFIED ELSEWHERE SNOMED Code(s): 780203150 (3) Bladder cancer Current Visit: No Status: Acute Code(s): C67.9 - MALIGNANT NEOPLASM OF BLADDER, UNSPECIFIED SNOMED Code(s): 327784663 (4) History of breast cancer Current Visit: No Status: Acute Code(s): Z85.3 - PERSONAL HISTORY OF MALIGNANT NEOPLASM OF BREAST SNOMED Code(s): 418451710 Plan: 1. Supportive care 2. Diet as tolerated 3. Continue broad-spectrum antibiotic therapy 4. Stool cultures/studies negative 5. Testing for Clostridium difficile negative 6. Continue twice a day cholestyramine 7. Continue treatment with antidiarrheals/Lomotil 8. Dicyclomine 10 mg 3 times a day as needed Thank you for this consultation, we will sign off at this time Dr.K Guzman I agree with the dictator's note, documented as a scribe by Teresa Batista.
--- NOTE | 2021-02-01 13:15 | P.DS ---
Providers Date of admission: 01/25/21 17:14 Attending physician: Stu Peterson MD Consults: 01/25/21 17:14 Consult Physician Urgent Consulting Provider: Elías Patterson Consult Reason/Comments: Febrile neutropenia, acute diarrhea Do you want consulting provider notified?: Yes 01/26/21 10:40 Consult Physician Routine Consulting Provider: Devika Childs Consult Reason/Comments: neutropenic fever Do you want consulting provider notified?: Yes 01/27/21 11:02 Consult Physician Routine Consulting Provider: Eyal Negrete Consult Reason/Comments: severe enterocolitis, r/o ibd Do you want consulting provider notified?: Yes Primary care physician: Luisana Quintanilla [place] [facility] Course: Subjective This is an 80-year-old female patient of Dr. 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 Patient presented to [facility] after undergoing chemotherapy yesterday. Patient has had increasing weakness over the past couple of days as well as diarrhea. She denies any blood in her stools. Patient continues to have worsening weakness, mild mental status changes and generalized abdominal pain. No nausea or vomiting. No chest pain. No shortness of breath. No fever or chills. Patient was afebrile, heart rate 75, blood pressure 146/64, pulse ox 96% on room air. WBC 0.2. Hemoglobin 10, platelet count 85. Sodium 132, potassium 4.5, chloride 102, CO2 19, BUN 17 and creatinine 1.05. Blood sugar 151. Total bilirubin 1.6, AST 22, ALT 21, alkaline phosphatase 55. Lipase less than 1010. Lactic acid 3.7 and repeat 1.8. Troponin negative. Urinalysis cloudy, moderate blood. Coronavirus PCR not detected. Chest x-ray reveals unchanged appearance. No acute cardiopulmonary process. Patient was started on cefepime, vancomycin, admitted to the oncology unit with consult for infectious disease and oncology. CAT scan of the abdomen and pelvis has been ordered as patient does have history of ischemic bowel. Stool specimen to be sent for C. difficile toxin and other stool studies. 01/27 patient examined bedside. Is much alert and answering questions appropriately. Diarrhea has improved. Fecal occult was negative for blood. C. diff is negative. Fresh patient continues to have significant tenderness in the abdomen. CT abdomen is positive for severe enterocolitis. Infectious disease recommended switching antibiotics to cefepime and Flagyl. Oncology evaluated the patient and initiated patient on filgrastim daily. GI consult placed to rule out IBD. yersenia stool cultures, lactoferrin, CALPROTECTIN levels ordered. Continue to remain an nothing by mouth diet. Status post 1 unit PRBC today as patient's hemoglobin remains low at 6.4, WBC remains a 0.1, platelet 2815 was in 19 5 d-dimer 3.22, potassium 3.2 chloride 110 bicarb 18.9. We'll replete patient's potassium. Start patient on D5NS at 75 mL per hour as patient remains nothing by mouth. 01/28 patient examined bedside. Appears more comfortable but endorses fatigue and tiredness. She does have significant abdominal pain and continues to have multiple bowel movements though they're getting softer as compared to on admission. Patient continues to remain on D5NS for hydration. Vitals this morning suggests a temp of 98.7 pulse 79 and respiratory rate 18 blood pressure 132/75. On evaluation of patient's blood work patient continues to remain leukopenic with WBC 0.2 hemoglobin improved to 7.9 with no need for transfusion today. CMP suggests a sodium 138 chloride 1:15 CO2 17 BUN 21 and creatinine 0.94 glucose 111 calcium 8 stool culture is pending. Blood culture from 01/25 suggests Klebsiella final report is not finalized. Patient continued to remain nothing by mouth and supportive care need to be provided. 01/29: Examined at the bedside. She is able to answer questions and is alert to self and place. Nursing does state that the patient was quite confused this morning and pulled out both of her IVs. She is complaining of vaginal pressure and discomfort. A repeat UA was sent which was negative. She continues to have diarrhea. Patient remains afebrile, heart rate 84, respirations 18, blood pressure 151/63 pulse ox 98% on room air. WC is increased to 0.7, RBC 2.65, hemoglobin 8.7, platelets 38, potassium 3.6, BUN 12, creatinine 0.82. 01/30: Examined at bedside. She is able to answer questions and alert to self and place. She does have episodes of confusion. Continues to have diarrhea which is showing improvement. Her W BC is increased to 2.7, hemoglobin 8.9, hematocrit 25.2, platelets 47. She remains afebrile, pulse rate 79, respirations 18, blood pressure 144/73, pulse ox a 96% on room air. 01/31: Patient is doing much better so far her neutropenia has improved but she still have significant anemia and thrombocytopenia still on Neupogen daily still seen oncology on regular basis. Continue to have diarrhea and seen gastroenterology but no testing is done at this point. And still been treated f or neutropenic colitis which overall with supportive care probiotic and anti- spastic medication doing better. No sign of fever chills or secondary infection at this point the coverage with her antibiotic has been well done. 02/01: Patient is doing very well today result 1 pancytopenia neutropenia, patient be continue on Cipro and Flagyl for few more days, still having medication for loose bowel more than diarrhea, with titrate diet today. Patient is able to tolerate soft and regular diet will be able to go home today with home care to follow with oncology and PCP in the next few days REVIEW OF SYSTEMS Constitutional: No fever, no chills, no night sweats. No weight change. Reports weakness, reports fatigue Reports lethargy. No daytime sleepiness. EENT: No headache. No blurred vision or double vision, no loss of vision. No loss of Hearing, no ringing in the ears, no dizziness. No nasal drainage or congestion. No epistaxis. No sore throat. Lungs: No shortness of breath, cough, no sputum production. No wheezing. Cardiovascular: No chest pain, no lower extremity edema. No palpitations. No paroxysmal nocturnal dyspnea. No orthopnea. No lightheadedness or dizziness. No syncopal episodes. Abdominal: Reports abdominal pain improving. No nausea, vomiting. Reports diarrhea improved. No constipation. No bloody or tarry stools.. No loss of appetite. Genitourinary: No dysuria, increased frequency, urgency. No urinary retention. Musculoskeletal: Reports myalgias. Reports muscle weakness, Reports gait dysfunction, no frequent falls. No back pain. No neck pain. Integumentary: No wounds, no lesions. No rash or pruritus. No unusual bruising. Neurologic: No aphasia. No facial droop. No change in mentation. No head injury. No headache. No paralysis. No paresthesia. Psychiatric: No depression. No anxiety. No mood swings. Endocrine: No abnormal blood sugars. PHYSICAL EXAMINATION Gen: This is an 80-year-old female. Patient is resting in bed. She is slightly confused. HEENT: Head is atraumatic, normocephalic. Pupils equal, round. Sclerae is anicteric. NECK: Supple. No JVD. No lymphadenopathy. No thyromegaly. LUNGS: Clear to auscultation. No wheezes or rhonchi. No intercostal retractions. HEART: regular rate and rhythm. No murmur. ABDOMEN: Soft. Bowel sounds are present. No masses. Mild generalized tenderness. EXTREMITIES: No pedal edema. No calf tenderness. Dorsalis pedis palpable bilaterally. NEUROLOGICAL: Patient is awake, alert and oriented to person and place. Cranial nerves 2 through 12 are grossly intact. Generalized weakness noted. ASSESSMENT AND PLAN 1. Neutropenic sepsis. Has improved continue on Cipro and Flagyl for 10 more days patient white blood cells much better so far. 2. Klebsiella pneumoniae bacteremia from preliminary report. Continue current antibiotics. Consult with infectious disease. Continue on antibiotic for 10 more days as a mention. 3. Abdominal pain and diarrhea secondary to severe infectious enterocolitis patient's symptoms much better so far continue Flagyl, no further bloody diarrhea patient is on antispastic medication beside Questran. 4. Pancytopenia secondary to bladder cancer and chemotherapy. Patient has been started on Zarxio oncology. 5. Dehydration secondary to diarrhea. Continue IV fluids DEXTROSE 0.9 normal saline at 75 mL per hour. 6. Bladder cancer receiving chemotherapy. Oncology consult appreciated. 7. Infectious encephalopathy. Much better her memory and confusion has significantly improved. 8. Lactic acidosis secondary to sepsis. Continue protocol. 9. Hypertension. Continue losartan 100 mg daily, Minipress 2 mg daily 10. Hyperlipidemia. Continue Lipitor 10 mg at bedtime. 11. Paroxysmal atrial fibrillation. Continue Toprol-XL 100 mg daily, anticoagulation will be in health till thrombocytopenia improved. 12. History of breast cancer. Continue Arimidex 1 mg daily. 13. Gastroesophageal reflux disease and GI prophylaxis. Continue famotidine 20 mg daily. 14. Mild dementia. Continue Aricept 10 mg daily and Namenda 10 mg twice daily 15. Restless leg syndrome. Continue Requip 0.5 mg twice daily. 16. COVID-19 testing negative. Patient has been hospitalized during a pandemic. 17. GI prophylaxis Pepcid 20 mg by mouth daily 18. DVT prophylaxis: Sequential compression garments Discharge planning: We be sending patient home today on home care if patient is able to tolerate her diet and able to move without DT. Arrangement for home care PT at home will be done. Plan - Discharge Summary New Discharge Prescriptions: New Dicyclomine [Bentyl] 10 mg PO TID PRN #90 cap PRN Reason: Dyspepsia Cholestyramine (with Sugar) [Questran Packet] 4 gm PO BID@1000,1800 #60 packet Acetaminophen Tab [Tylenol] 650 mg PO Q4HR PRN tab PRN Reason: Fever And/ Or Pain metroNIDAZOLE [Flagyl] 500 mg PO Q8H #30 tab Ciprofloxacin HCl [Cipro] 250 mg PO Q12HR 10 Days #20 tab Continue Apixaban [Eliquis] 5 mg PO BID Escitalopram [Lexapro] 10 mg PO DAILY Metoprolol Succinate (ER) [Toprol XL] 100 mg PO DAILY Atorvastatin Calcium [Lipitor] 10 mg PO HS Furosemide [Lasix] 20 mg PO DAILY rOPINIRole HCL [Requip] 0.5 mg PO BID Memantine [Namenda] 10 mg PO BID Anastrozole 1 mg PO DAILY Losartan Potassium 100 mg PO DAILY Ondansetron [Zofran] 4 mg PO TID PRN PRN Reason: Nausea Famotidine [Pepcid] 20 mg PO DAILY tab Diphenoxylate HCl/Atropine [Lomotil 2.5-0.025 mg Tablet] 1 - 2 tab PO TID PRN PRN Reason: Diarrhea Galantamine HBr [Galantamine ER] 16 mg PO DAILY Prazosin HCl 2 mg PO DAILY Discharge Medication List Apixaban [Eliquis] 5 mg PO BID 11/24/16 [History] Escitalopram [Lexapro] 10 mg PO DAILY 01/12/17 [History] Metoprolol Succinate (ER) [Toprol XL] 100 mg PO DAILY 12/14/17 [History] Atorvastatin Calcium [Lipitor] 10 mg PO HS 03/19/18 [History] Furosemide [Lasix] 20 mg PO DAILY 03/19/18 [History] Memantine [Namenda] 10 mg PO BID 11/28/19 [History] rOPINIRole HCL [Requip] 0.5 mg PO BID 11/28/19 [History] Anastrozole 1 mg PO DAILY 09/09/20 [History] Losartan Potassium 100 mg PO DAILY 09/09/20 [History] Ondansetron [Zofran] 4 mg PO TID PRN 09/09/20 [History] Famotidine [Pepcid] 20 mg PO DAILY tab 09/11/20 [Rx] Diphenoxylate HCl/Atropine [Lomotil 2.5-0.025 mg Tablet] 1 - 2 tab PO TID PRN 01/25/21 [History] Galantamine HBr [Galantamine ER] 16 mg PO DAILY 01/25/21 [History] Prazosin HCl 2 mg PO DAILY 01/25/21 [History] Acetaminophen Tab [Tylenol] 650 mg PO Q4HR PRN tab 02/01/21 [Rx] Cholestyramine (with Sugar) [Questran Packet] 4 gm PO BID@1000,1800 #60 packet 02/01/21 [Rx] Ciprofloxacin HCl [Cipro] 250 mg PO Q12HR 10 Days #20 tab 02/01/21 [Rx] Dicyclomine [Bentyl] 10 mg PO TID PRN #90 cap 02/01/21 [Rx] metroNIDAZOLE [Flagyl] 500 mg PO Q8H #30 tab 02/01/21 [Rx] Follow up Appointment(s)/Referral(s): Luisana Quintanilla MD [Primary Care Provider] - 1-2 days Elías Patterson MD [STAFF PHYSICIAN] - 1 Week Patient Instructions/Handouts: Acute Diarrhea (GEN), Weakness (DC), Neutropenia (DC) Activity/Diet/Wound Care/Special Instructions: [facility] - Discharge Disposition: HOME SELF-CARE
--- NOTE | 2021-02-01 14:33 | PN ---
PROGRESS NOTE DATE OF SERVICE: 02/01/2021 REASON FOR FOLLOWUP: Klebsiella bacteremia secondary to abdominal source. INTERVAL HISTORY: The patient is currently afebrile. The patient is feeling better. Breathing comfortably. The patient denies having any chest pain, shortness of breath or cough. No abdominal pain. She has been tolerating her clear liquid diet and wants that to be increased. PHYSICAL EXAMINATION: Blood pressure 134/85, pulse of 104, temperature 98.4. She is 98% on room air. General description is an elderly female lying in bed in no distress. RESPIRATORY SYSTEM: Unlabored breathing, clear to auscultation anteriorly. HEART: S1, S2. Regular rate and rhythm. ABDOMEN: Soft, no tenderness. LABS: Hemoglobin 7.9, white count 4.5, creatinine 0.7. DIAGNOSTIC IMPRESSION AND PLAN: Patient with Klebsiella pneumoniae bacteremia source likely abdominal, with evidence of colitis. Repeat blood culture has been negative. Patient did well on cefepime, Flagyl. Patient is insisting on going home, finishing therapy with oral Cipro for another 10 days and close outpatient followup. MMODL / IJN: [id number] /
== END 2021-02-01 13:57 | disposition home health service (06) | DRG 871 ==
LOC: EC 12:50 → 5NMEDONC 17:14
PROVIDERS: ADMIT Internal Medicine; ATTEND Internal Medicine
PROC: 30233N1 Transfusion of Nonautologous Red Blood Cells into Peripheral Vein, Percutaneous Approach (ICD-10-PCS; principal; 2021-01-26)
DX: A41.59 Other Gram-negative sepsis (principal); D61.810 Antineoplastic chemotherapy induced pancytopenia; G93.41 Metabolic encephalopathy; E87.2 Acidosis; N39.0 Urinary tract infection, site not specified; A09 Infectious gastroenteritis and colitis, unspecified; D70.3 Neutropenia due to infection; I48.0 Paroxysmal atrial fibrillation; E86.0 Dehydration; F03.90 Unspecified dementia, unspecified severity, without behavioral disturbance, psychotic disturbance, mood disturbance, and anxiety; C67.8 Malignant neoplasm of overlapping sites of bladder; C67.1 Malignant neoplasm of dome of bladder; C50.911 Malignant neoplasm of unspecified site of right female breast; Z20.822 Contact with and (suspected) exposure to COVID-19; R50.81 Fever presenting with conditions classified elsewhere; G25.81 Restless legs syndrome; K29.70 Gastritis, unspecified, without bleeding; K44.9 Diaphragmatic hernia without obstruction or gangrene; E78.5 Hyperlipidemia, unspecified; I10 Essential (primary) hypertension; K21.9 Gastro-esophageal reflux disease without esophagitis; M19.90 Unspecified osteoarthritis, unspecified site; T45.1X5A Adverse effect of antineoplastic and immunosuppressive drugs, initial encounter; S49.91XA Unspecified injury of right shoulder and upper arm, initial encounter; S29.9XXA Unspecified injury of thorax, initial encounter; R32 Unspecified urinary incontinence; Z79.811 Long term (current) use of aromatase inhibitors; Z79.01 Long term (current) use of anticoagulants; Z79.899 Other long term (current) drug therapy; Z86.19 Personal history of other infectious and parasitic diseases; Z90.13 Acquired absence of bilateral breasts and nipples; Z96.5 Presence of tooth-root and mandibular implants; Z87.440 Personal history of urinary (tract) infections; Z86.14 Personal history of Methicillin resistant Staphylococcus aureus infection; Z87.39 Personal history of other diseases of the musculoskeletal system and connective tissue; Z87.19 Personal history of other diseases of the digestive system; Z90.49 Acquired absence of other specified parts of digestive tract; Z98.51 Tubal ligation status; Z87.891 Personal history of nicotine dependence; Z98.42 Cataract extraction status, left eye; Z98.41 Cataract extraction status, right eye; Z87.74 Personal history of (corrected) congenital malformations of heart and circulatory system; Z87.448 Personal history of other diseases of urinary system; Z98.890 Other specified postprocedural states; W19.XXXA Unspecified fall, initial encounter; Z88.5 Allergy status to narcotic agent; Z82.49 Family history of ischemic heart disease and other diseases of the circulatory system; Z80.9 Family history of malignant neoplasm, unspecified
CPT/HCPCS: 36415; 71046; 74177; 80048; 80053; 81001; 82150; 82272; 82746; 83605; 83630; 83690; 83735; 83921; 83993; 84100; 84484; 85025; 85379; 85384; 85610; 85730; 86850; 86900; 86901; 86920; 87040; 87045; 87046; 87077; 87186; 87324; 87635; 93005; 96361; 96374; 99285

== ENCOUNTER → 2021-02-14 | Outpatient (CLI) | payer MEDICARE ==
[2021-02-14 21:47] LABS: African American GFR (CKD) 54.5 (60.0-200.0); Anion Gap 9.5 mmol/L (4.00-12.00); BUN/Creat Ratio 5.45 Ratio (12.00-20.00); Calcium 8.6 mg/dL (8.7-10.3); Carbon Dioxide 26.5 mmol/L (21.6-31.8); Potassium 4.6 mmol/L (3.5-5.5)
== END | disposition home or self-care (01) ==
LOC: LABWHC1 14:14
PROVIDERS: ATTEND Family Medicine
DX: E87.6 Hypokalemia (principal)
CPT/HCPCS: 36415; 80048

== ENCOUNTER 2021-02-16 13:53 | Inpatient (IN) | payer MEDICARE ==
[2021-02-16] MEDS ORDERED: SODIUM CHLORIDE 0.9% 500 ML 500 ML IV STA (14:42)
--- NOTE | 2021-02-16 14:47 | ED ---
General Adult HPI - General Chief complaint: Weakness Stated complaint: Sent by Time Seen by Provider: 02/16/21 14:00 Source: patient, family, RN notes reviewed, old records reviewed Mode of arrival: wheelchair Limitations: no limitations - History of Present Illness Initial comments: This is an 80-year-old female presents emergency Department with a history of bladder cancer. Patient was being treated for bladder cancer with radiation and chemotherapy which she has not received for over 2-1/2 weeks. Patient was admitted to the hospital about 2 weeks ago for 5 date. Because of weakness and dizziness. According to family members patient was discharge and she continues to be weak and dizzy. Patient also spits up a lot of her food according to the daughter. Patient denies headache patient denies any numbness or focal weakness. Patient denies any chest pain palpitations. Patient states when she gets up and moves around she is very dizzy and somewhat short of breath. Patient denies any abdominal pain patient denies any diarrhea. Patient states she had that for a while but no longer. Patient denies any injury or trauma. - Related Data Home Medications Medication Instructions Recorded Confirmed Apixaban [Eliquis] 5 mg PO BID 11/24/16 02/16/21 Escitalopram [Lexapro] 10 mg PO DAILY 01/12/17 02/16/21 Metoprolol Succinate (ER) [Toprol 100 mg PO DAILY 12/14/17 02/16/21 XL] Atorvastatin Calcium [Lipitor] 10 mg PO HS 03/19/18 02/16/21 Furosemide [Lasix] 20 mg PO DAILY 03/19/18 02/16/21 Memantine [Namenda] 10 mg PO BID 11/28/19 02/16/21 rOPINIRole HCL [Requip] 0.5 mg PO BID 11/28/19 02/16/21 Anastrozole 1 mg PO DAILY 09/09/20 02/16/21 Losartan Potassium 100 mg PO DAILY 09/09/20 02/16/21 Ondansetron [Zofran] 4 mg PO TID PRN 09/09/20 02/16/21 Diphenoxylate HCl/Atropine 1 - 2 tab PO TID PRN 01/25/21 02/16/21 [Lomotil 2.5-0.025 mg Tablet] Galantamine HBr [Galantamine ER] 16 mg PO DAILY 01/25/21 02/16/21 Prazosin HCl 2 mg PO DAILY 01/25/21 02/16/21 Omeprazole [PriLOSEC] 20 mg PO BID 02/16/21 02/16/21 Potassium Chloride ER [K-Dur 20] 20 meq PO BID 02/16/21 02/16/21 Previous Rx's Medication Instructions Recorded Famotidine [Pepcid] 20 mg PO DAILY tab 09/11/20 Acetaminophen Tab [Tylenol] 650 mg PO Q4HR PRN tab 02/01/21 Cholestyramine (with Sugar) 4 gm PO BID@1000,1800 #60 packet 02/01/21 [Questran Packet] Dicyclomine [Bentyl] 10 mg PO TID PRN #90 cap 02/01/21 Allergies Allergy/AdvReac Type Severity Reaction Status Date / Time codeine AdvReac Reaction Verified 02/16/21 16:15 to Tylenol #3 Review of Systems ROS Statement: Those systems with pertinent positive or pertinent negative responses have been documented in the HPI. ROS Other: All systems not noted in ROS Statement are negative. 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 Mild memory changes. upper denture, lower dental implants. perineal/pelvic pain, freq uti, currently resistant to outpatient AB Rx. History of Any Multi-Drug Resistant Organisms: MRSA, Other MDRO Date of last positivie culture/infection: 06/21/18 MDRO Source:: MRSA CHEST Past Surgical History: Bowel Resection, Breast Surgery, Heart Catheterization, Orthopedic Surgery, Tubal Ligation Additional Past Surgical History / Comment(s): R rotator cuff repair. Bilateral mastectomy 09/22, had failed reconstruction. May 2018 had excision rt and lt reconstructred breast/chest wall deformities. bowel resection 10/2016, heart cath 12/13/17, tiff cataracts, lower dental implants. Past Anesthesia/Blood Transfusion Reactions: Previous Problems w/ Anesthesia, Postoperative Nausea & Vomiting (PONV) Additional Past Anesthesia/Blood Transfusion Reaction / Comment(s): PATIENT STATES HER TEETH IMPLANTS WERE DISLODGED DURING INTUBATION AND SHE SWALLOWED A TOOTH 2015. pt stated she has recieved blood transfusion in past, no reaction to it. Past Psychological History: No Psychological Hx Reported Smoking Status: Former smoker Past Alcohol Use History: None Reported Past Drug Use History: None Reported - Past Family History Mother Family Medical History: Myocardial Infarction ([place]) Additional Family Medical History / Comment(s): in her 80's Father Family Medical History: Myocardial Infarction ([place]) Additional Family Medical History / Comment(s): age 56 from mi Brother(s) Family Medical History: Cancer General Exam - General Exam Comments Initial Comments: GENERAL: Patient is well-developed and well-nourished. Patient is nontoxic and well- hydrated and is in no acute distress. ENT: Neck is soft and supple. No significant lymphadenopathy is noted. Oropharynx is clear. Moist mucous membranes. Neck has full range of motion without eliciting any pain. EYES: The sclera were anicteric and conjunctiva were pink and moist. Extraocular movements were intact and pupils were equal round and reactive to light. Eyelids were unremarkable. PULMONARY: Unlabored respirations. Good breath sounds bilaterally. No audible rales rhonchi or wheezing was noted. CARDIOVASCULAR: There is a regular rate and rhythm without any murmurs gallops or rubs. ABDOMEN: Soft and nontender with normal bowel sounds. No palpable organomegaly was noted. There is no palpable pulsatile mass. SKIN: Skin is clear with no lesions or rashes and otherwise unremarkable. NEUROLOGIC: Patient is alert and oriented x3. Cranial nerves II through XII are grossly intact. Motor and sensory are also intact. Normal speech, volume and content. Symmetrical smile. Cerebellar exam grossly intact. MUSCULOSKELETAL: Normal extremities with adequate strength and full range of motion. No lower extremity swelling or edema. No calf tenderness. LYMPHATICS: No significant lymphadenopathy is noted PSYCHIATRIC: Normal psychiatric evaluation. Limitations: no limitations Course Vital Signs 02/16/21 02/16/21 13:57 15:46 Temperature 97.8 F Pulse Rate 63 66 Respiratory 18 16 Rate Blood Pressure 91/47 111/60 O2 Sat by Pulse 96 98 Oximetry Medical Decision Making - Medical Decision Making EKG shows sinus bradycardia 58 bpm NE interval is 162 QRS is 96 Q-T intervals 466 QTC is 457. Patient has no ST segment elevation or depression. Patient's oncologist wanted the patient admitted. I spoke with Dr. Kristen Peterson agreed to admit the patient admitted the patient wrote admitting orders. I consulted oncology. - Lab Data Result diagrams: 02/16/21 14:53 02/16/21 14:53 Lab Results 02/16/21 02/16/21 02/16/21 Range/Units 14:53 14:53 14:53 WBC 7.1 (3.8-10.6) k/uL RBC 2.69 L (3.80-5.40) m/uL Hgb 8.7 L (11.4-16.0) gm/dL Hct 25.9 L (34.0-46.0) % MCV 96.2 (80.0-100.0) fL MCH 32.4 (25.0-35.0) pg MCHC 33.7 (31.0-37.0) g/dL RDW 18.3 H (11.5-15.5) % Plt Count 295 D (150-450) k/uL MPV 7.7 Neutrophils % 80 % Lymphocytes % 9 % Monocytes % 9 % Eosinophils % 1 % Basophils % 0 % Neutrophils # 5.7 (1.3-7.7) k/uL Lymphocytes # 0.6 L (1.0-4.8) k/uL Monocytes # 0.6 (0-1.0) k/uL Eosinophils # 0.1 (0-0.7) k/uL Basophils # 0.0 (0-0.2) k/uL Hypochromasia Slight Anisocytosis Slight Macrocytosis Slight PT 12.2 H (9.0-12.0) sec INR 1.2 H (<1.2) APTT 26.5 (22.0-30.0) sec Sodium (137-145) mmol/L Potassium (3.5-5.1) mmol/L Chloride (98-107) mmol/L Carbon Dioxide (22-30) mmol/L Anion Gap mmol/L BUN (7-17) mg/dL Creatinine (0.52-1.04) mg/dL Est GFR (CKD-EPI)AfAm (>60 ml/min/1.73 sqM) Est GFR (CKD-EPI)NonAf (>60 ml/min/1.73 sqM) Glucose (74-99) mg/dL Plasma Lactic Acid Deion (0.7-2.0) mmol/L Calcium (8.4-10.2) mg/dL Magnesium (1.6-2.3) mg/dL Total Bilirubin (0.2-1.3) mg/dL AST (14-36) U/L ALT (4-34) U/L Alkaline Phosphatase (38-126) U/L Troponin I (0.000-0.034) ng/mL Total Protein (6.3-8.2) g/dL Albumin (3.5-5.0) g/dL Urine Color Light Yellow Urine Appearance Clear (Clear) Urine pH 6.5 (5.0-8.0) Ur Specific Ell[place] 1.006 (1.001-1.035) Urine Protein Negative (Negative) Urine Glucose (UA) Negative (Negative) Urine Ketones Negative (Negative) Urine Blood Negative (Negative) Urine Nitrite Negative (Negative) Urine Bilirubin Negative (Negative) Urine Urobilinogen <2.0 (<2.0) mg/dL Ur Leukocyte Esterase Negative (Negative) Coronavirus (PCR) (Not Detectd) 02/16/21 02/16/21 02/16/21 Range/Units 14:53 14:53 14:53 WBC (3.8-10.6) k/uL RBC (3.80-5.40) m/uL Hgb (11.4-16.0) gm/dL Hct (34.0-46.0) % MCV (80.0-100.0) fL MCH (25.0-35.0) pg MCHC (31.0-37.0) g/dL RDW (11.5-15.5) % Plt Count (150-450) k/uL MPV Neutrophils % % Lymphocytes % % Monocytes % % Eosinophils % % Basophils % % Neutrophils # (1.3-7.7) k/uL Lymphocytes # (1.0-4.8) k/uL Monocytes # (0-1.0) k/uL Eosinophils # (0-0.7) k/uL Basophils # (0-0.2) k/uL Hypochromasia Anisocytosis Macrocytosis PT (9.0-12.0) sec INR (<1.2) APTT (22.0-30.0) sec Sodium 136 L (137-145) mmol/L Potassium 4.9 (3.5-5.1) mmol/L Chloride 104 (98-107) mmol/L Carbon Dioxide 27 (22-30) mmol/L Anion Gap 5 mmol/L BUN 11 (7-17) mg/dL Creatinine 1.41 H (0.52-1.04) mg/dL Est GFR (CKD-EPI)AfAm 40 (>60 ml/min/1.73 sqM) Est GFR (CKD-EPI)NonAf 35 (>60 ml/min/1.73 sqM) Glucose 95 (74-99) mg/dL Plasma Lactic Acid Deion 1.2 (0.7-2.0) mmol/L Calcium 9.1 (8.4-10.2) mg/dL Magnesium 2.0 (1.6-2.3) mg/dL Total Bilirubin 0.7 (0.2-1.3) mg/dL AST 22 (14-36) U/L ALT 8 (4-34) U/L Alkaline Phosphatase 63 (38-126) U/L Troponin I <0.012 (0.000-0.034) ng/mL Total Protein 6.3 (6.3-8.2) g/dL Albumin 3.2 L (3.5-5.0) g/dL Urine Color Urine Appearance (Clear) Urine pH (5.0-8.0) Ur Specific [place] (1.001-1.035) Urine Protein (Negative) Urine Glucose (UA) (Negative) Urine Ketones (Negative) Urine Blood (Negative) Urine Nitrite (Negative) Urine Bilirubin (Negative) Urine Urobilinogen (<2.0) mg/dL Ur Leukocyte Esterase (Negative) Coronavirus (PCR) (Not Detectd) 02/16/21 Range/Units 16:05 WBC (3.8-10.6) k/uL RBC (3.80-5.40) m/uL Hgb (11.4-16.0) gm/dL Hct (34.0-46.0) % MCV (80.0-100.0) fL MCH (25.0-35.0) pg MCHC (31.0-37.0) g/dL RDW (11.5-15.5) % Plt Count (150-450) k/uL MPV Neutrophils % % Lymphocytes % % Monocytes % % Eosinophils % % Basophils % % Neutrophils # (1.3-7.7) k/uL Lymphocytes # (1.0-4.8) k/uL Monocytes # (0-1.0) k/uL Eosinophils # (0-0.7) k/uL Basophils # (0-0.2) k/uL Hypochromasia Anisocytosis Macrocytosis PT (9.0-12.0) sec INR (<1.2) APTT (22.0-30.0) sec Sodium (137-145) mmol/L Potassium (3.5-5.1) mmol/L Chloride (98-107) mmol/L Carbon Dioxide (22-30) mmol/L Anion Gap mmol/L BUN (7-17) mg/dL Creatinine (0.52-1.04) mg/dL Est GFR (CKD-EPI)AfAm (>60 ml/min/1.73 sqM) Est GFR (CKD-EPI)NonAf (>60 ml/min/1.73 sqM) Glucose (74-99) mg/dL Plasma Lactic Acid Deion (0.7-2.0) mmol/L Calcium (8.4-10.2) mg/dL Magnesium (1.6-2.3) mg/dL Total Bilirubin (0.2-1.3) mg/dL AST (14-36) U/L ALT (4-34) U/L Alkaline Phosphatase (38-126) U/L Troponin I (0.000-0.034) ng/mL Total Protein (6.3-8.2) g/dL Albumin (3.5-5.0) g/dL Urine Color Urine Appearance (Clear) Urine pH (5.0-8.0) Ur Specific [place] (1.001-1.035) Urine Protein (Negative) Urine Glucose (UA) (Negative) Urine Ketones (Negative) Urine Blood (Negative) Urine Nitrite (Negative) Urine Bilirubin (Negative) Urine Urobilinogen (<2.0) mg/dL Ur Leukocyte Esterase (Negative) Coronavirus (PCR) Not Detected (Not Detectd) Disposition Clinical Impression: Generalized weakness Disposition: ADMITTED IP TO THIS [facility] Referrals: Luisana Quintanilla MD [Primary Care Provider] - 1-2 days Time of Disposition: 17:49
[2021-02-16 15:20] LABS: Anisocytosis Slight; Basophils % (A) 0 %; Eosinophils # (A) 0.1 k/uL (0-0.7); Eosinophils % (A) 1 %; HCT 25.9 % (34.0-46.0); HGB 8.7 gm/dL (11.4-16.0); Hypochromasia Slight; Lymphocytes # (A) 0.6 k/uL (1.0-4.8); Lymphocytes % (A) 9 %; MCH 32.4 pg (25.0-35.0); MCHC 33.7 g/dL (31.0-37.0); MCV 96.2 fL (80.0-100.0); Macrocytosis Slight; Mean Platelet Volume 7.7; Monocytes # (A) 0.6 k/uL (0-1.0); Monocytes % (A) 9 %; Neutrophils # (A) 5.7 k/uL (1.3-7.7); Neutrophils % (A) 80 %; RBC 2.69 m/uL (3.80-5.40); RDW 18.3 % (11.5-15.5); WBC 7.1 k/uL (3.8-10.6)
[2021-02-16 15:21] LABS: Platelet Count 295 k/uL (150-450)
[2021-02-16 15:28] LABS: INR 1.2 (<1.2); Partial Thromboplastin Time 26.5 sec (22.0-30.0); Prothrombin Time 12.2 sec (9.0-12.0)
--- NOTE | 2021-02-16 15:45 | XR ---
EXAMINATION TYPE: XR chest 2V DATE OF EXAM: 02/16/2021 COMPARISON: 01/25/2021 HISTORY: Shortness of breath TECHNIQUE: Frontal and lateral views of the chest are obtained. FINDINGS: Scattered senescent parenchymal changes noted. Hyperinflation compatible with COPD. No evidence for infiltrate. No evidence for atelectasis. Heart size is stable. Mediastinal structures are stable and grossly unremarkable. No evidence for hilar prominence. Degenerative changes dorsal spine. IMPRESSION: 1. No evidence for acute pulmonary disease.
--- NOTE | 2021-02-16 15:50 | CT ---
EXAMINATION TYPE: CT brain wo con DATE OF EXAM: 02/16/2021 COMPARISON: 06/23/18 HISTORY: Weakness. CT DLP: 1088.[address] of the brain was performed. The ventricles, basal cisterns and sulci overlying the cerebral convexities demonstrate mild enlargem ent. There is no evidence for intracranial hemorrhage or sulcal effacement. There is decreased attenuation about the periventricular white matter and deep white matter of both c erebral hemispheres, compatible with chronic small vessel ischemia. Differential diagnosis does inclu de demyelination. No mass effects are seen.No midline shift. Osseous calvarium is intact. If symptoms persist consider MRI. IMPRESSION: 1. Age related atrophic and chronic small vessel ischemic change without acute intracranial process s een at this time.
[2021-02-16 16:03] LABS: Albumin 3.2 g/dL (3.5-5.0); Calcium 9.1 mg/dL (8.4-10.2); Potassium 4.9 mmol/L (3.5-5.1); Total Bilirubin 0.7 mg/dL (0.2-1.3); Total Protein 6.3 g/dL (6.3-8.2)
[2021-02-16 17:33] LABS: Appearance,Urine Clear (Clear); Bilirubin,Urine Negative (Negative); Blood,Urine Negative (Negative); Color,Urine Light Yellow; Glucose,Urine (UA) Negative (Negative); Ketones,Urine Negative (Negative); Leukocyte Esterase,Urine Negative (Negative); Nitrite,Urine Negative (Negative); PH, Urine 6.5 (5.0-8.0); Protein,Urine Negative (Negative); Specific Gravity,Urine 1.006 (1.001-1.035); Urobilinogen,Urine <2.0 mg/dL (<2.0)
[2021-02-16] MEDS ORDERED: SODIUM CHLORIDE 0.9% 1,000 ML IV ONE (17:49)
[2021-02-16] MEDS ORDERED: ACETAMINOPHEN TAB 325 MG TAB PO PRN (23:49)
[2021-02-16] MEDS ORDERED: DIPHENOX-ATROP 2.5-0.025 MG 1 EACH TAB PO PRN (23:49)
[2021-02-16] MEDS ORDERED: DICYCLOMINE 10 MG CAP PO PRN (23:49)
[2021-02-16] MEDS ORDERED: ONDANSETRON 4 MG/2 ML VIAL IVP PRN (23:56)
[2021-02-17] MEDS: PANTOPRAZOLE 40 MG TABLET PO SCH ×2 (08:20→21:14)
[2021-02-17] MEDS: APIXABAN 5 MG TAB PO SCH ×2 (08:20→21:13)
[2021-02-17] MEDS: PRAZOSIN 1 MG CAP PO SCH (08:20)
[2021-02-17] MEDS: POTASSIUM CHLORIDE ER 20 MEQ TAB.ER PO SCH ×2 (08:20→21:14)
[2021-02-17] MEDS: LOSARTAN 50 MG TAB PO SCH (08:20)
[2021-02-17] MEDS: METOPROLOL SUCCINATE (ER) 100 MG TAB.ER.24H PO SCH (08:21)
[2021-02-17] MEDS: ESCITALOPRAM 10 MG TAB PO SCH (08:21)
[2021-02-17] MEDS: FAMOTIDINE 20 MG TAB PO SCH (08:21)
[2021-02-17] MEDS: ANASTROZOLE 1 MG TAB PO SCH (08:22)
[2021-02-17] MEDS: GALANTAMINE HBR 16 MG PO SCH (08:22)
[2021-02-17] MEDS ORDERED: FUROSEMIDE 20 MG TAB PO SCH (09:00)
[2021-02-17] MEDS ORDERED: CHOLESTYRAMINE (WITH SUGAR) 4 GM PACKET PO SCH (10:00)
--- NOTE | 2021-02-17 13:27 | P.HPIM ---
History of Present Illness H&P Date: 02/17/21 This is an 80-year-old female patient of Dr. 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 as well as return to the OR for closure handsewn anastomosis 2, breast cancer status post bilateral mastectomy, bladder cancer undergoing chemotherapy, chronic anemia, hypertension, hyperlipidemia, paroxysmal atrial fibrillation on chronic eliquis, ASD closure in 2005 at [facility], gastroesophageal reflux disease. Patient was in the hospital from to for neutropenic sepsis secondary to Klebsiella pneumonia and infectious enterocolitis with pancytopenia from chemotherapy. Patient had significant d iarrhea which improved with Questran . Patient came to the ER for increased weakness and dizziness. Patient noticed that she is still having significant diarrhea 2-3 times a day. Patient also. I'll order for for reported to the daughter. Patient denies any fever or chills. Patient's oncologist and the patient for admission. Vital severe degree ER suggestive of 97.96 due to respiratory rate 17 and blood pressure 148/65 labs reviewed WBC is 7.1 hemoglobin 8.7 platelets 295, sodium 136, chloride 4.9 bicarb 27 creatinine 1.4 baseline creatinine 0.7 troponin 1 negative. UA negative for infection sifuentes virus negative. Patient evaluated in the room, appears comfortable denies any abdominal pain, nausea or vomiting. She denies any fever or chills. She has daughters who take care of her and follows on her regularly. Patient denies any black stools or blood in her stools. Orthostatics to be obtained. Normal saline continue at 75 mL per hour. No source of infection identified. Stool culture was neg on , infectious disease consulted. Review of Systems Constitutional: Denies chills, Denies fever, endorses lethargy and dizziness, Denies weight loss Eyes: denies decreased vision, denies diplopia, denies discharge, denies pain Ears: deny: decreased hearing Ears, nose, mouth and throat: Denies dental pain, Denies headache, Denies nasal discharge, Denies nose pain Cardiovascular: Denies chest pain, Denies decreased exercise tolerance, Denies edema, Denies high blood pressure, Denies irregular heart beat, Denies palpitations, Denies paroxysmal nocturnal dyspnea, Denies rapid heart beat, Denies shortness of breath Respiratory: Denies congestion, Denies cough, Denies cough with sputum, Denies dyspnea, Denies home oxygen, Denies wheezing Gastrointestinal: Denies abdominal pain, Denies change in bowel habits, Denies coffee ground emesis, Denies early satiety, Denies excessive gas, Denies heartburn, Denies hematemesis, Denies hematochezia, Denies loss of appetite, Denies nausea, Denies vomiting Genitourinary: Denies dysuria, Denies flank pain, Denies kidney stones, Denies menorrhagia, Denies urgency, Denies urinary frequency Musculoskeletal: Denies gait dysfunction, Denies limitation of motion, Denies morning stiffness, Denies muscle cramps Integumentary: Denies rash, Denies wounds, Denies brittle nails, Denies change in hair/nails, Denies darkening of skin Neurological: Endorses balance difficulties, Denies change in speech, Denies double vision, Denies gait dysfunction, Denies loss of vision, Denies motor disturbance, Denies numbness, Denies paralysis, Denies paresthesias, Denies seizures Psychiatric: Denies anxiety, Denies depression Endocrine: Denies excessive sweating, Denies excessive thirst, Denies high blood sugars, Denies palpitations Hematologic/Lymphatic: Denies easy bruising, Denies lymphadenopathy Past Medical History Past Medical History: Atrial Fibrillation, Cancer, GERD/Reflux, Hyperlipidemia, Hypertension, Memory Impairment, Osteoarthritis (OA), Renal Disease Additional Past Medical History / Comment(s): Hx of anemia, sepsis, Breast Cancer 09/2016, 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 Mild memory c hanges. upper denture, lower dental implants. perineal/pelvic pain, freq uti, currently resistant to outpatient AB Rx. History of Any Multi-Drug Resistant Organisms: MRSA, Other MDRO Date of last positivie culture/infection: 06/21/18 MDRO Source:: MRSA CHEST Past Surgical History: Bowel Resection, Breast Surgery, Heart Catheterization, Orthopedic Surgery, Tubal Ligation Additional Past Surgical History / Comment(s): R rotator cuff repair. Bilateral mastectomy 09/22, had failed reconstruction. May 2018 had excision rt and lt reconstructred breast/chest wall deformities. bowel resection 10/2016, heart cath 12/13/17, tiff cataracts, lower dental implants. Past Anesthesia/Blood Transfusion Reactions: Previous Problems w/ Anesthesia, Postoperative Nausea & Vomiting (PONV) Additional Past Anesthesia/Blood Transfusion Reaction / Comment(s): PATIENT STATES HER TEETH IMPLANTS WERE DISLODGED DURING INTUBATION AND SHE SWALLOWED A TOOTH 2015. pt stated she has recieved blood transfusion in past, no reaction to it. Past Psychological History: No Psychological Hx Reported Additional Psychological History / Comment(s): pt lives alone in 2 story home that has 1 porch step. daughter lives 6 miles from pt. Smoking Status: Former smoker Past Alcohol Use History: None Reported Additional Past Alcohol Use History / Comment(s): started smoking 1967, smoked 1/2 ppd, quit in 1984. Past Drug Use History: None Reported - Past Family History Mother Family Medical History: Myocardial Infarction ([place]) Additional Family Medical History / Comment(s): in her 80's Father Family Medical History: Myocardial Infarction ([place]) Additional Family Medical History / Comment(s): age 56 from [place] Brother(s) Family Medical History: Cancer Additional Family Medical History / Comment(s): Brain cancer Medications and Allergies Home Medications Medication Instructions Recorded Confirmed Type Apixaban [Eliquis] 5 mg PO BID 11/24/16 02/16/21 History Escitalopram [Lexapro] 10 mg PO DAILY 01/12/17 02/16/21 History Metoprolol Succinate (ER) [Toprol 100 mg PO DAILY 12/14/17 02/16/21 History XL] Atorvastatin Calcium [Lipitor] 10 mg PO HS 03/19/18 02/16/21 History Furosemide [Lasix] 20 mg PO DAILY 03/19/18 02/16/21 History Memantine [Namenda] 10 mg PO BID 11/28/19 02/16/21 History rOPINIRole HCL [Requip] 0.5 mg PO BID 11/28/19 02/16/21 History Anastrozole 1 mg PO DAILY 09/09/20 02/16/21 History Losartan Potassium 100 mg PO DAILY 09/09/20 02/16/21 History Ondansetron [Zofran] 4 mg PO TID PRN 09/09/20 02/16/21 History Famotidine [Pepcid] 20 mg PO DAILY tab 09/11/20 02/16/21 Rx Diphenoxylate HCl/Atropine 1 - 2 tab PO TID PRN 01/25/21 02/16/21 History [Lomotil 2.5-0.025 mg Tablet] Galantamine HBr [Galantamine ER] 16 mg PO DAILY 01/25/21 02/16/21 History Prazosin HCl 2 mg PO DAILY 01/25/21 02/16/21 History Acetaminophen Tab [Tylenol] 650 mg PO Q4HR PRN tab 02/01/21 02/16/21 Rx Cholestyramine (with Sugar) 4 gm PO BID@1000,1800 #60 packet 02/01/21 02/16/21 Rx [Questran Packet] Dicyclomine [Bentyl] 10 mg PO TID PRN #90 cap 02/01/21 02/16/21 Rx Omeprazole [PriLOSEC] 20 mg PO BID 02/16/21 02/16/21 History Potassium Chloride ER [K-Dur 20] 20 meq PO BID 02/16/21 02/16/21 History Allergies Allergy/AdvReac Type Severity Reaction Status Date / Time codeine AdvReac Reaction Verified 02/16/21 16:15 to Tylenol #3 Physical Exam Vitals: Vital Signs Temp Pulse Pulse Resp BP BP BP 02/17/21 07:28 97.9 F 62 17 140/65 02/17/21 02:03 97.7 F 61 15 127/75 02/16/21 22:00 58 L 18 02/16/21 20:58 98.0 F 65 18 117/45 02/16/21 20:00 97.7 F 58 L 16 116/48 02/16/21 18:00 58 L 16 115/73 02/16/21 17:00 57 L 18 137/54 02/16/21 15:46 66 16 111/60 02/16/21 13:57 97.8 F 63 18 91/47 Pulse Ox 02/17/21 07:28 96 02/17/21 02:03 96 02/16/21 22:00 02/16/21 20:58 96 02/16/21 20:00 95 02/16/21 18:00 96 02/16/21 17:00 97 02/16/21 15:46 98 02/16/21 13:57 96 Intake and Output 02/16/21 02/17/21 02/17/21 22:59 06:59 14:59 Other: # Voids 2 # Bowel Movements 1 Weight 91.172 kg - Constitutional General appearance: cooperative, no acute distress, obese loss of fear from chemo - EENT Eyes: anicteric sclerae, PERRLA, normal appearance ENT: hearing grossly normal - Neck Neck: no lymphadenopathy, normal ROM - Respiratory Respiratory: bilateral: CTA, negative: diminished, dullness, rales, rhonchi - Cardiovascular Rhythm: regular Heart sounds: normal: S1, S2 Abnormal Heart Sounds: no systolic murmur, no diastolic murmur - Gastrointestinal General gastrointestinal: normal bowel sounds, soft, serum scar - Integumentary Integumentary: no rash - Neurologic Neurologic: No motor or sensory deficit - Musculoskeletal Musculoskeletal: gait normal, strength equal bilaterally - Psychiatric Psychiatric: A&O x's 3, appropriate affect Results CBC & Chem 7: 02/16/21 14:53 02/16/21 14:53 Labs: Abnormal Lab Results - Last 24 Hours (Table) 02/16/21 02/16/21 02/16/21 Range/Units 14:53 14:53 14:53 RBC 2.69 L (3.80-5.40) m/uL Hgb 8.7 L (11.4-16.0) gm/dL Hct 25.9 L (34.0-46.0) % RDW 18.3 H (11.5-15.5) % Lymphocytes # 0.6 L (1.0-4.8) k/uL PT 12.2 H (9.0-12.0) sec INR 1.2 H (<1.2) Sodium 136 L (137-145) mmol/L Creatinine 1.41 H (0.52-1.04) mg/dL Albumin 3.2 L (3.5-5.0) g/dL Thrombosis Risk Factor Assmnt - DVT/VTE Prophylaxis DVT/VTE Prophylaxis: Pharmacologic Prophylaxis ordered - Choose All That Apply Each Risk Factor Represents 2 Points: Malignancy Each Risk Factor Represents 3 Points: Age 75 years or older Thrombosis Risk Factor Assessment Total Risk Factor Score: 5 Thrombosis Risk Factor Assessment Level: High Risk Assessment and Plan Plan: 1. Chronic diarrhea with recent treatment for infectious colitis. Continue Questran will increase to 3 times a day. Continue IV fluids at 75 mL per hour. Infectious disease consulted and did a limited 2. Acute kidney injury likely secondary to dehydration and ATN. Lasix discontinued continue normal saline at 75 mL per hour 3. Acute dizziness likely secondary to dehydration from diarrhea Orthostatics obtained. Continue normal saline at 75 mL per hour 4. Neutropenic sepsis. Resolved 5. Klebsiella pneumoniae bacteremia resolved 6. Pancytopenia secondary to bladder cancer and chemotherapy. off Zarxio at this moment. oncology consulted 7. Bladder cancer chemotherapy on hold . Oncology consult. 8. Anemia of chronic disease hemoglobin stable compared to previous labs continue to monitor 9. Hypertension. Continue losartan 100 mg daily, prazosin 2 mg daily 10. Hyperlipidemia. Continue Lipitor 10 mg at bedtime. 11. Paroxysmal atrial fibrillation. Continue Toprol-XL 100 mg daily, eliquis 12. History of breast cancer. Continue Arimidex 1 mg daily. 13. Gastroesophageal reflux disease and GI prophylaxis. Continue famotidine 20 mg daily. 14. Mild dementia. Continue Aricept 10 mg daily and Namenda 10 mg twice daily 15. Restless leg syndrome. Continue Requip 0.5 mg twice daily. 16. 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 COVID neg Patient will be admitted to the hospital for a minimum of 2 night stay. DISCHARGE PLAN TBD. Likely return home. PT and OT consults added.
[2021-02-17 13:54] VITALS: BMI 30.5
[2021-02-17] MEDS: SODIUM CHLORIDE 0.9% 1,000 ML IV SCH ×2 (15:37→21:13)
[2021-02-17] MEDS: CHOLESTYRAMINE (WITH SUGAR) 4 GM PACKET PO SCH ×2 (15:37→18:23)
--- NOTE | 2021-02-17 16:13 | P.CONS ---
History of Present Illness - Reason for Consult Consult date: 02/17/21 wekaness, just complete chemo for bladder cancer Requesting physician: Nicolas Hamilton - Chief Complaint found by family, post syncopy, weakness - History of Present Illness Ms. Overton is a pleasant WF, initially seen in consult at [facility] on 12/27/16. She was admitted with persistent n/v and dehydration, associated with intermittent confusion and hallucinations. She was found to have abnormal findings in the right breast on mammogram in 07/23. She had a stereotactic core biopsy of one area on 07/25/16, revealing ALH. She then had right medial lumpectomy and rt posterior lumpectomy on 08/01/16. The medial specimen revealed a 0.3 cm invasive lobular carcinoma, ER/CO +ve , Her2 negative, in a background of LCIS and ALH. The posterior specimen showed LCIS and ALH. She had a b/l mastectomy on 09/19/16 with residual low and high grade DCIS on the right and ALH/LCIS on the left. SNB on the right showed isolated tumor cells, with additional 6 nodes negative. She had a bowel resection for ischemic bowel at [facility] 09/22. The concern at the 12/22 admission was for a paraneoplastic syndrome or recurrence. This was felt to be highly unlikely, given the very early stage of her cancer. She had a CT CAP, tumor markers and MRI brain, all negative for any evidence of malignancy. She had a PEG placement in 01/22 as well as endoscopies at [facility], with the latter also negative. The pt did improve slowly. The n/v and MS changes were ultimately felt to be medication related and resolved with adjustment of the same. She was transferred to [facility] and discharged home in mid 03/24. Her PO intake gradually improved, and she stopped using the PEG in early 03/24. She was seen for her 1st OV on 03/26/17. Due to the early stage, marker status and pt's age, as well b/l mastectomies, it was felt that any benefit from adjuvant hormonal therapy would be quite low. After discussion of risks and benefits, the pt decided against the same, which was felt to be reasonable. She was thus recommended f/u with her PCP and surgery. The pt developed recurrent infections in her chest wall subsequently, including an admission in 07/25 for MRSA, requiring IV antibiotics inpt and outpt. She had to have her implants removed and was not felt to be a candidate for further reconstruction. She had revision for redundant tissue in her chest wall in 05/25 with pathology showing no obvious malignancy. She was referred back by Surgery in 10/26. When seen in 07/26 she reported that she had not taken the AI for a few months, as she did not refill her prescription for the previous one. she had also missed her previous scheduled appointment. She reported having progressive issues with memory. She had been dealing with recurrent UTIs since about early fall. She was starting IV antibiotics for 10 days, and had a PICC placed, when seen in 11/27. Urine cytology done in 04/26 was positive for high-grade urothelial carcinoma. Cystoscopy by Dr. Chavez on 05/05/20, biopsy of 5 sites, with 4 showing urothelial carcinoma in situ. 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 She saw Urology at [facility]. She had a CT urogram on 06/02/20 that showed no obvious metastatic disease in the abdomen or pelvis. She was recommended chemotherapy prior to surgical evaluation, and was referred back here and seen on 06/15/20. PET and MRI showed no metastatic disease. The patient was then started on [employer]-16 and carboplatin on 06/23/20 and completed 6 cycles last month. She has been receiveing XRT, 33 planned, I think < 1 week to go. Pt states that her daughter came over when she did not answer the phone, found her passed out over the recliner with stool all over her and the floor. She does not remember falling, she has been having diarrhea, "runs" out of her, she feels very weak, denies fever, oral irritation, SOB, cough, indigestion, heartburn, abd pain, dysuria, hematuria, pain with diarrhea, swelling in the legs, no other pain to report. Review of Systems 10 point ROS is neg except as stated in HPI Past Medical History Past Medical History: Atrial Fibrillation, Cancer, GERD/Reflux, Hyperlipidemia, Hypertension, Memory Impairment, Osteoarthritis (OA), Renal Disease Additional Past Medical History / Comment(s): Hx of anemia, sepsis, Breast Cance r 09/2016, 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 Mild memory changes. upper denture, lower dental implants. perineal/pelvic pain, freq uti, currently resistant to outpatient AB Rx. History of Any Multi-Drug Resistant Organisms: MRSA, Other MDRO Year Discovered:: 06/21/18 MDRO Source:: MRSA CHEST Past Surgical History: Bowel Resection, Breast Surgery, Heart Catheterization, Orthopedic Surgery, Tubal Ligation Additional Past Surgical History / Comment(s): R rotator cuff repair. Bilateral mastectomy 09/22, had failed reconstruction. May 2018 had excision rt and lt reconstructred breast/chest wall deformities. bowel resection 10/2016, heart cath 12/13/17, tiff cataracts, lower dental implants. Past Anesthesia/Blood Transfusion Reactions: Previous Problems w/ Anesthesia, Postoperative Nausea & Vomiting (PONV) Additional Past Anesthesia/Blood Transfusion Reaction / Comm: PATIENT STATES HER TEETH IMPLANTS WERE DISLODGED DURING INTUBATION AND SHE SWALLOWED A TOOTH 2015. pt stated she has recieved blood transfusion in past, no reaction to it. Past Psychological History: No Psychological Hx Reported Additional Psychological History / Comment(s): pt lives alone in 2 story home that has 1 porch step. daughter lives 6 miles from pt. Smoking Status: Former smoker Past Alcohol Use History: None Reported Additional Past Alcohol Use History / Comment(s): started smoking 1967, smoked 1/2 ppd, quit in 1984. Past Drug Use History: None Reported - Past Family History Mother Family Medical History: Myocardial Infarction (MD) Additional Family Medical History / Comment(s): in her 80's Father Family Medical History: Myocardial Infarction (MD) Additional Family Medical History / Comment(s): age 56 from [place] Brother(s) Family Medical History: Cancer Additional Family Medical History / Comment(s): Brain cancer Medications and Allergies Home Medications Medication Instructions Recorded Confirmed Type Apixaban [Eliquis] 5 mg PO BID 11/24/16 02/16/21 History Escitalopram [Lexapro] 10 mg PO DAILY 01/12/17 02/16/21 History Metoprolol Succinate (ER) [Toprol 100 mg PO DAILY 12/14/17 02/16/21 History XL] Atorvastatin Calcium [Lipitor] 10 mg PO HS 03/19/18 02/16/21 History Furosemide [Lasix] 20 mg PO DAILY 03/19/18 02/16/21 History Memantine [Namenda] 10 mg PO BID 11/28/19 02/16/21 History rOPINIRole HCL [Requip] 0.5 mg PO BID 11/28/19 02/16/21 History Anastrozole 1 mg PO DAILY 09/09/20 02/16/21 History Losartan Potassium 100 mg PO DAILY 09/09/20 02/16/21 History Ondansetron [Zofran] 4 mg PO TID PRN 09/09/20 02/16/21 History Famotidine [Pepcid] 20 mg PO DAILY tab 09/11/20 02/16/21 Rx Diphenoxylate HCl/Atropine 1 - 2 tab PO TID PRN 01/25/21 02/16/21 History [Lomotil 2.5-0.025 mg Tablet] Galantamine HBr [Galantamine ER] 16 mg PO DAILY 01/25/21 02/16/21 History Prazosin HCl 2 mg PO DAILY 01/25/21 02/16/21 History Acetaminophen Tab [Tylenol] 650 mg PO Q4HR PRN tab 02/01/21 02/16/21 Rx Cholestyramine (with Sugar) 4 gm PO BID@1000,1800 #60 packet 02/01/21 02/16/21 Rx [Questran Packet] Dicyclomine [Bentyl] 10 mg PO TID PRN #90 cap 02/01/21 02/16/21 Rx Omeprazole [PriLOSEC] 20 mg PO BID 02/16/21 02/16/21 History Potassium Chloride ER [K-Dur 20] 20 meq PO BID 02/16/21 02/16/21 History Allergies Allergy/AdvReac Type Severity Reaction Status Date / Time codeine AdvReac Reaction Verified 02/16/21 16:15 to Tylenol #3 Physical Exam Vitals: Vital Signs Temp Pulse Pulse Resp BP BP BP 02/17/21 07:28 97.9 F 62 17 140/65 02/17/21 02:03 97.7 F 61 15 127/75 02/16/21 22:00 58 L 18 02/16/21 20:58 98.0 F 65 18 117/45 02/16/21 20:00 97.7 F 58 L 16 116/48 02/16/21 18:00 58 L 16 115/73 02/16/21 17:00 57 L 18 137/54 02/16/21 15:46 66 16 111/60 02/16/21 13:57 97.8 F 63 18 91/47 Pulse Ox 02/17/21 07:28 96 02/17/21 02:03 96 02/16/21 22:00 02/16/21 20:58 96 02/16/21 20:00 95 02/16/21 18:00 96 02/16/21 17:00 97 02/16/21 15:46 98 02/16/21 13:57 96 Intake and Output 02/16/21 02/17/21 02/17/21 22:59 06:59 14:59 Other: # Voids 2 Weight 91.172 kg - Constitutional General appearance: cooperative, no acute distress, obese - EENT Eyes: anicteric sclerae, EOMI ENT: hearing grossly normal, normal oropharynx - Neck Neck: no lymphadenopathy - Respiratory Respiratory: bilateral: CTA - Cardiovascular bradycardia Heart sounds: normal: S1, S2 Abnormal Heart Sounds: no systolic murmur, no diastolic murmur, no rub, no S3 Gallop, no S4 Gallop, no click, no other leg Peripheral Edema: bilateral: None - Gastrointestinal General gastrointestinal: no absent bowel sounds, no decreased bowel sounds, no distended, no hepatomegaly, no hyperactive bowel sounds, normal bowel sounds, no organomegaly, no rigid, no scaphoid, soft, no splenomegaly, no tenderness, no umbilical hernia, no ventral hernia - Neurologic Neurologic: CNII-XII intact - Musculoskeletal Musculoskeletal: generalized weakness - Psychiatric Psychiatric: A&O x's 3, appropriate affect Results CBC & Chem 7: 02/16/21 14:53 02/16/21 14:53 Labs: Abnormal Lab Results - Last 24 Hours (Table) 02/16/21 02/16/21 02/16/21 Range/Units 14:53 14:53 14:53 RBC 2.69 L (3.80-5.40) m/uL Hgb 8.7 L (11.4-16.0) gm/dL Hct 25.9 L (34.0-46.0) % RDW 18.3 H (11.5-15.5) % Lymphocytes # 0.6 L (1.0-4.8) k/uL PT 12.2 H (9.0-12.0) sec INR 1.2 H (<1.2) Sodium 136 L (137-145) mmol/L Creatinine 1.41 H (0.52-1.04) mg/dL Albumin 3.2 L (3.5-5.0) g/dL Chest x-ray: report reviewed CT Scan - head: report reviewed Assessment and Plan (1) Syncopal episodes Narrative/Plan: Possibly a combination of dehydration and vaso/vagal 2/2 BM prior to losing co nsciousness. Pt does have chronic bradycardia. May need Cardiac consult IV fluids Current Visit: Yes Status: Acute Priority: High Code(s): R55 - SYNCOPE AND COLLAPSE SNOMED Code(s): 531551423 (2) Generalized weakness Narrative/Plan: 2/2 diarrhea Current Visit: Yes Status: Acute Priority: High Code(s): R53.1 - WEAKNESS SNOMED Code(s): 99299931 (3) Bladder cancer Narrative/Plan: She has completed chemo, only a short duration of radiation still left. She will be placed on routine f/u. Current Visit: Yes Status: Chronic Priority: Medium Code(s): C67.9 - MALIGNANT NEOPLASM OF BLADDER, UNSPECIFIED SNOMED Code(s): 030638382 (4) Diarrhea Narrative/Plan: Likely r/t radiation. ID consulted, stool studies. Add antidiarrheals as soon as infection work up complete IV hydration Current Visit: Yes Status: Chronic Priority: Medium Code(s): R19.7 - DIARRHEA, UNSPECIFIED SNOMED Code(s): 62870875 (5) Anemia Narrative/Plan: Chemo induced. No need for transfusion at this time. Anemia work up Current Visit: Yes Status: Chronic Priority: Medium Code(s): D64.9 - ANEMIA, UNSPECIFIED SNOMED Code(s): 878251670 Plan: CT brain without contrast neg
[2021-02-17] MEDS: ATORVASTATIN 10 MG TAB PO SCH (21:14)
[2021-02-18] MEDS: GALANTAMINE HBR 16 MG PO SCH (07:58)
[2021-02-18] MEDS: CHOLESTYRAMINE (WITH SUGAR) 4 GM PACKET PO SCH ×3 (08:09→17:07)
[2021-02-18] MEDS: PRAZOSIN 1 MG CAP PO SCH (08:10)
[2021-02-18] MEDS: FAMOTIDINE 20 MG TAB PO SCH (08:10)
[2021-02-18] MEDS: LOSARTAN 50 MG TAB PO SCH (08:10)
[2021-02-18] MEDS: APIXABAN 5 MG TAB PO SCH ×2 (08:10→22:16)
[2021-02-18] MEDS: ESCITALOPRAM 10 MG TAB PO SCH (08:10)
[2021-02-18] MEDS: PANTOPRAZOLE 40 MG TABLET PO SCH ×2 (08:10→22:17)
[2021-02-18] MEDS: ANASTROZOLE 1 MG TAB PO SCH (08:10)
[2021-02-18] MEDS: METOPROLOL SUCCINATE (ER) 100 MG TAB.ER.24H PO SCH (08:10)
[2021-02-18] MEDS: POTASSIUM CHLORIDE ER 20 MEQ TAB.ER PO SCH ×2 (08:10→22:16)
[2021-02-18] MEDS ORDERED: IOPAMIDOL CONTRAST (ORAL USE) VIAL PO PRN ×2 (09:34→09:41)
[2021-02-18] MEDS: amLODIPine 10 MG TAB PO SCH (09:37)
[2021-02-18 09:44] LABS: ALT 7 U/L (4-34); AST 18 U/L (14-36); African American GFR (CKD) 59 (>60 ml/min/1.73 sqM); Albumin 2.9 g/dL (3.5-5.0); Alkaline Phosphatase 61 U/L (38-126); Anion Gap 7 mmol/L; Blood Urea Nitrogen 6 mg/dL (7-17); C Reactive Protein 1.1 mg/dL (<1.0); Calcium 8.6 mg/dL (8.4-10.2); Carbon Dioxide 24 mmol/L (22-30); Chloride 109 mmol/L (98-107); Glucose 85 mg/dL (74-99); Non-African American GFR(CKD) 51 (>60 ml/min/1.73 sqM); Potassium 4.4 mmol/L (3.5-5.1); Sodium 140 mmol/L (137-145); Total Bilirubin 0.4 mg/dL (0.2-1.3); Total Protein 5.9 g/dL (6.3-8.2)
[2021-02-18 10:17] LABS: Anisocytosis Slight; Basophils % (A) 0 %; Eosinophils # (A) 0.1 k/uL (0-0.7); Eosinophils % (A) 1 %; HCT 24.8 % (34.0-46.0); HGB 8.1 gm/dL (11.4-16.0); Hypochromasia Slight; Lymphocytes # (A) 0.4 k/uL (1.0-4.8); Lymphocytes % (A) 9 %; MCH 32.5 pg (25.0-35.0); MCHC 32.8 g/dL (31.0-37.0); MCV 99.2 fL (80.0-100.0); Macrocytosis Moderate; Mean Platelet Volume 7.7; Monocytes # (A) 0.4 k/uL (0-1.0); Monocytes % (A) 9 %; Neutrophils # (A) 3.7 k/uL (1.3-7.7); Neutrophils % (A) 80 %; Platelet Count 254 k/uL (150-450); RDW 18.2 % (11.5-15.5); WBC 4.7 k/uL (3.8-10.6)
[2021-02-18] MEDS: IOPAMIDOL CONTRAST (ORAL USE) VIAL PO PRN ×2 (10:26→11:29)
[2021-02-18 11:03] LABS: % Iron Saturation 17.68 (12.00-45.00); Ferritin 440.7 ng/mL (10.0-291.0)
[2021-02-18 12:00] LABS: Erythrocyte Sedimentation Rate 67 mm/hr (0-20)
--- NOTE | 2021-02-18 14:42 | P.PN ---
Subjective This is an 80-year-old female patient of Dr. Quintanilla with past medical history for ischemic bowel in 2016 status post hemicolectomy done at [facility] as well as return to the OR for closure handsewn anastomosis 2, breast cancer status post bilateral mastectomy, bladder cancer undergoing chemotherapy, chronic anemia, hypertension, hyperlipidemia, paroxysmal atrial fibrillation on chronic eliquis, ASD closure in 2005 at [facility], gastroesophageal reflux disease. Patient was in the hospital from to for neutropenic sepsis secondary to Klebsiella pneumonia and infectious enterocolitis with pancytopenia from chemotherapy. Patient had significant diarrhea which improved with Questran . Patient came to the ER for increased weakness and dizziness. Patient noticed that she is still having significant diarrhea 2-3 times a day. Patient also. I'll order for for reported to the daughter. Patient denies any fever or chills. Patient's oncologist and the patient for admission. Vital severe degree ER suggestive of 97.96 due to respiratory rate 17 and blood pressure 148/65 labs reviewed WBC is 7.1 hemoglobin 8.7 platelets 295, sodium 136, chloride 4.9 bicarb 27 creatinine 1.4 baseline creatinine 0.7 troponin 1 negative. UA negative for infection sifuentes virus negative. Patient evaluated in the room, appears comfortable denies any abdominal pain, nausea or vomiting. She denies any fever or chills. She has daughters who take care of her and follows on her regularly. Patient denies any black stools or blood in her stools. Orthostatics to be obtained. Normal saline continue at 75 mL per hour. No source of infection identified. Stool culture was neg on , infectious disease consulted. 02/18: Patient evaluated this morning, continues to have loose stools and frequent bouts of diarrhea. Repeat CT abdomen and pelvis is been ordered laboratory values unchanged from yesterday, WBC 4.7, hemoglobin 8.1. Kidney function improved from yesterday after IV hydration BUN 6, creatinine 1.03. Vital signs are stable, she is afebrile temp is 98.3, heart rate 62, respiratory of 18, blood pressure 104/60, she's 99% on room air. Objective - Vital Signs Vital signs: Vital Signs Temp 98.3 F 02/18/21 13:37 Pulse 62 02/18/21 13:37 Resp 18 02/18/21 13:37 BP 104/60 02/18/21 13:37 Pulse Ox 99 02/18/21 13:37 Intake & Output 02/17/21 02/18/21 02/18/21 18:59 06:59 18:59 Weight 91.172 kg Other: Voiding Method Diaper # Voids 1 2 # Bowel Movements 3 1 - Exam - Constitutional General appearance: cooperative, no acute distress - EENT Eyes: anicteric sclerae, PERRLA, normal appearance ENT: hearing grossly normal - Neck Neck: no lymphadenopathy, normal ROM - Respiratory Respiratory: bilateral: CTA, negative: diminished, dullness, rales, rhonchi - Cardiovascular Rhythm: regular Heart sounds: normal: S1, S2 Abnormal Heart Sounds: no systolic murmur, no diastolic murmur - Gastrointestinal General gastrointestinal: normal bowel sounds, soft, serum scar - Integumentary Integumentary: no rash - Neurologic Neurologic: No motor or sensory deficit - Musculoskeletal Musculoskeletal: gait normal, strength equal bilaterally - Psychiatric Psychiatric: A&O x's 3, appropriate affect - Labs CBC & Chem 7: 02/18/21 09:59 02/18/21 06:14 Labs: Abnormal Lab Results - Last 24 Hours (Table) 02/18/21 02/18/21 02/18/21 Range/Units 06:14 06:14 09:59 RBC 2.50 L (3.80-5.40) m/uL Hgb 8.1 L (11.4-16.0) gm/dL Hct 24.8 L (34.0-46.0) % RDW 18.2 H (11.5-15.5) % Lymphocytes # 0.4 L (1.0-4.8) k/uL ESR 67 H (0-20) mm/hr Chloride 109 H (98-107) mmol/L BUN 6 L (7-17) mg/dL Iron 35 L (50-170) ug/dL TIBC 198 L (228-460) ug/dL Ferritin 440.7 H (10.0-291.0) ng/mL C-Reactive Protein 1.1 H (<1.0) mg/dL Total Protein 5.9 L (6.3-8.2) g/dL Albumin 2.9 L (3.5-5.0) g/dL Vitamin B12 1864.0 H (200.0-944.0) pg/mL Assessment and Plan Plan: 1. Chronic diarrhea with recent treatment for infectious colitis. Continue Questran will increase to 3 times a day. Continue IV fluids at 75 mL per hour. Infectious disease consulted and CT of the abdomen and pelvis ordered 2. Acute kidney injury likely secondary to dehydration and ATN. Lasix discontinued continue normal saline at 75 mL per hour, kidney function improving 3. Acute dizziness likely secondary to dehydration from diarrhea Orthostatics obtained. Continue normal saline at 75 mL per hour 4. Neutropenic sepsis. Resolved 5. Klebsiella pneumoniae bacteremia resolved 6. Pancytopenia secondary to bladder cancer and chemotherapy. off Zarxio at this moment. oncology consulted 7. Bladder cancer chemotherapy on hold . Oncology consult. 8. Anemia of chronic disease hemoglobin stable compared to previous labs continue to monitor 9. Hypertension. Continue losartan 100 mg daily, prazosin 2 mg daily 10. Hyperlipidemia. Continue Lipitor 10 mg at bedtime. 11. Paroxysmal atrial fibrillation. Continue Toprol-XL 100 mg daily, eliquis 12. History of breast cancer. Continue Arimidex 1 mg daily. 13. Gastroesophageal reflux disease and GI prophylaxis. Continue famotidine 20 mg daily. 14. Mild dementia. Continue Aricept 10 mg daily and Namenda 10 mg twice daily 15. Restless leg syndrome. Continue Requip 0.5 mg twice daily. 16. 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 COVID neg Patient will be admitted to the hospital for a minimum of 2 night stay. The above impression and plan of care have been discussed and directed by signing physician. Teodora Berman nurse practitioner acting as scribe for signing physician.
--- NOTE | 2021-02-18 14:49 | CT ---
EXAMINATION TYPE: CT abdomen pelvis wo con DATE OF EXAM: 02/18/2021 COMPARISON: 01/26/2021 HISTORY: diarrhea, weakness CT DLP: 1017.4 mGycm Automated exposure control for dose reduction was used. Images obtained from the diaphragm to the floor the pelvis with oral contrast only. There is some interstitial infiltrate and atelectasis at both lung bases. Heart is enlarged. There is no pericardial effusion. There is no pleural effusion. There are calcified small gallstones. Bile ducts are not dilated. Liver shows no focal defect. Spleen is intact. The stomach is intact. There is no evidence of pancreatic mass. There is no adrenal mass. Kidneys have normal size. There is no hydronephrosis. There is 2.3 cm corti kaley cyst anterior upper pole left kidney. There is 2 mm calculus posterior right kidney. The ureters are not dilated. There is no sign of retroperitoneal adenopathy. Abdominal aorta is atheromatous. Burke dder distends smoothly. There is no inguinal hernia. Uterus is intact. I see no evidence of a pelvic mass. The lumbar vertebra have normal alignment. There is no compression fracture. There is mild dege nerative disc changes. The bony pelvis is intact. The hip joints are intact. There is fatty infiltration of the wall of the ascending colon related to lipomatosis. Appendix not d efinitely seen. No sign of thickened appendix. There is no evidence of a bowel obstruction. There is small bowel normal contrast opacification. I see no mesenteric edema. There is no ascites or free air . There is long segment of terminal ileum that shows some mild wall thickening. This is not opacified with contrast. Segment of involvement is approximate 8 cm. IMPRESSION: Wall thickening of the terminal ileum could relate to some inflammatory bowel disease which is much i mproved compared to last exam. There is colonic lipomatosis. There is much improvement in the small b owel mesenteric edema compared to old exam. Cardiomegaly unchanged. Fibrotic changes and subsegmental atelectasis at the lung bases unchanged.
[2021-02-18] MEDS: SODIUM CHLORIDE 0.9% 1,000 ML IV SCH (16:26)
--- NOTE | 2021-02-18 16:43 | P.PN ---
Subjective Progress Note Date: 02/18/21 the patient is in good spirits and in no acute distress. She appears overall stronger. She feels that her diarrhea is improving. No fever, chills, nausea or vomiting Objective - Vital Signs Vital signs: Vital Signs Temp 98.3 F 02/18/21 13:37 Pulse 62 02/18/21 13:37 Resp 18 02/18/21 13:37 BP 104/60 02/18/21 13:37 Pulse Ox 99 02/18/21 13:37 Intake & Output 02/17/21 02/18/21 02/18/21 18:59 06:59 18:59 Weight 91.172 kg Other: Voiding Method Diaper # Voids 1 2 # Bowel Movements 3 1 - Constitutional General appearance: Present: no acute distress - EENT Eyes: Present: EOMI ENT: Present: hearing grossly normal, normal oropharynx - Neck Thyroid: bilateral: normal size - Respiratory Respiratory: bilateral: CTA - Cardiovascular Rhythm: regular Heart sounds: normal: S1, S2 - Gastrointestinal General gastrointestinal: Present: normal bowel sounds, soft - Integumentary Integumentary: Present: normal - Neurologic Neurologic: Present: CNII-XII intact - Musculoskeletal Musculoskeletal: Present: generalized weakness, strength equal bilaterally - Psychiatric Psychiatric: Present: A&O x's 3, appropriate affect - Labs CBC & Chem 7: 02/18/21 09:59 02/18/21 06:14 Labs: Abnormal Lab Results - Last 24 Hours (Table) 02/18/21 02/18/21 02/18/21 Range/Units 06:14 06:14 09:59 RBC 2.50 L (3.80-5.40) m/uL Hgb 8.1 L (11.4-16.0) gm/dL Hct 24.8 L (34.0-46.0) % RDW 18.2 H (11.5-15.5) % Lymphocytes # 0.4 L (1.0-4.8) k/uL ESR 67 H (0-20) mm/hr Chloride 109 H (98-107) mmol/L BUN 6 L (7-17) mg/dL Iron 35 L (50-170) ug/dL TIBC 198 L (228-460) ug/dL Ferritin 440.7 H (10.0-291.0) ng/mL C-Reactive Protein 1.1 H (<1.0) mg/dL Total Protein 5.9 L (6.3-8.2) g/dL Albumin 2.9 L (3.5-5.0) g/dL Vitamin B12 1864.0 H (200.0-944.0) pg/mL Assessment and Plan (1) Generalized weakness Narrative/Plan: This is multifactorial. The patient has had progressive symptoms due to her treatment. She had a major drop in performance status changes her present admission for severe pancytopenia and neutropenic colitis. 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 - The patient was advised that major component of her management from our standpoint would be a break from treatment. She has already completed chemotherapy and is several weeks out from the same. At this time radiation has also been on hold for some weeks. Diarrhea is improving with more aggressive management. She feels better with hydration given in the hospital. - She was advised, therefore, that most likely the mainstay of her treatment going forward would be aggressive physical therapy and rehabilitation. She is being evaluated for the same, including possible IPR Current Visit: Yes Status: Acute Priority: High Code(s): R53.1 - WEAKNESS SNOMED Code(s): 91679806 (2) Anemia Narrative/Plan: the patient has had some persistent anemia due to treatment effect, and also her underlying CK D. Labs are negative for evidence of any deficiency states. Hemoglobin is in a safe range, 8-9. Continue to monitor and transfuse for hemoglobin less than 7. It is expected that this will improve spontaneously as she gets further out from treatment. Current Visit: Yes Status: Chronic Priority: Medium Code(s): D64.9 - ANEMIA, UNSPECIFIED SNOMED Code(s): 145103984 (3) Diarrhea Narrative/Plan: this is improving with treatment. Current residual diarrhea most likely represents effect of radiation induced enteritis/colitis. She previously had more severe diarrhea due to neutropenic colitis, which has resolved. Testing for C. difficile has been ordered to rule out out, but is pending. Current Visit: Yes Status: Chronic Priority: Medium Code(s): R19.7 - DIARRHEA, UNSPECIFIED SNOMED Code(s): 73670974 (4) Bladder cancer Narrative/Plan: The patient has completed all of her planned chemotherapy, and most of her radiation. She only has about one more week of radiation left. This remains on hold. Defer to radiation oncology to decide if she will complete the same, or omit it depending on her performance status Current Visit: Yes Status: Chronic Priority: Medium Code(s): C67.9 - MALIGNANT NEOPLASM OF BLADDER, UNSPECIFIED SNOMED Code(s): 522350891
[2021-02-18] MEDS: ATORVASTATIN 10 MG TAB PO SCH (22:17)
--- NOTE | 2021-02-18 22:20 | CONS ---
CONSULTATION DATE OF SERVICE: 02/18/2021 REASON FOR CONSULTATION: Diarrhea. HISTORY OF PRESENT ILLNESS: The patient is an 80-year-old female with multiple comorbidities including history of ischemic bowel, status post hemicolectomy, breast cancer status bilateral mastectomy. This patient has history of bladder cancer, currently undergoing chemotherapy. The patient was recently admitted at this facility from 01/26 until 02/01/2021. The patient did have neutropenic sepsis with evidence of Klebsiella bacteremia, secondary to infectious enterocolitis. Patient was treated with IV cefepime, Flagyl, discharged home on oral Cipro and Flagyl. The patient has completed. The patient has been brought back to the ER on 02/16/2021 for evaluation of an episode of unresponsiveness and significant diarrhea. Patient complaining of multiple loose stools 4-5 times per day. Denies any blood or mucus in the stool. The patient denies any abdominal pain. Some nausea but no vomiting. Denies having any chest pain, shortness of breath or cough. With these symptoms, the patient has been evaluated by the ER physician. On arrival to the ER, the patient was afebrile and no fever has been recorded since then. The patient did have a normal white count with no left shift. Creatinine was mildly elevated on admission 1.41, repeat is 1.03. Liver enzymes are normal. Urine is negative. Beltran PCR was negative. Chest x-ray did not show any acute abnormality. The patient has been started on Questran for symptomatic relief. CT of abdomen and pelvis has been ordered which is currently pending. Stool studies have not requested. Infectious disease was consulted for further workup. REVIEW OF SYSTEMS: Positive points have been mentioned in HPI. Rest of the systems are negative. PAST MEDICAL HISTORY: Atrial fibrillation, gastroesophageal reflux disease, hypertension, hyperlipidemia, osteoarthritis, recent neutropenic sepsis secondary to Klebsiella from enterocolitis, history of breast cancer, bladder cancer, ischemic colitis. PAST SURGERY HISTORY: Bowel resection, bilateral mastectomy, heart catheterization, tubal ligation, rotator cuff repair. SOCIAL HISTORY: Remote history of smoking. No drinking or drug use. FAMILY HISTORY: Mother history of [place]. Father history of [place] as well. ALLERGIES: CODEINE. MEDICATIONS: The patient is currently on Requip, Minipress, K-Dur, Protonix and Zofran, Toprol-XL, Pepcid, Lexapro, Bentyl, Questran, Lipitor, Eliquis, Norvasc, Tylenol. PHYSICAL EXAMINATION: Blood pressure 104/60 with a pulse of 72, temperature 98.3. She is 98% on room air. General: The patient is an elderly female lying in bed in no distress. HEENT: Examination shows slight pallor. No scleral icterus. Oral mucous membranes dry. NECK: Trachea central. No thyromegaly. LUNGS unlabored breathing and is clear to auscultation anteriorly. HEART: S1-S2 regular rate and rhythm. ABDOMEN: Soft, no tenderness. No guarding or rigidity. EXTREMITIES: No edema of the feet. SKIN: No rash or mass palpable. NEUROLOGICAL: Patient is awake, alert, oriented times three. Mood and affect normal. LABS: Beltran PCR was negative. Hemoglobin 8.1, white count 10.1. BUN of 11, creatinine 1.41. Liver enzymes are normal. Urine was negative. Chest x-ray was negative. CT of the abdomen and pelvis currently pending. DIAGNOSTIC IMPRESSION AND PLAN: Patient admitted to the hospital with an episode of unresponsiveness in this patient who did have significant diarrhea with recent admission to this facility and was treated for Klebsiella bacteremia secondary to enterocolitis. The patient currently with no fever or elevated white count and no significant tenderness on abdominal exam, underlying infectious colitis needs to be ruled out though less likely. PLAN: 1. We will obtain stool culture and stool for C difficile. 2. Continue the Questran. However, discontinue Lomotil until stool workup is completed. 3. We will wait for the CT of abdomen and pelvis to be completed. 4. We will follow on clinical condition and further adjust medication if needed. Thank you for this consultation. Will follow this patient along with you. MMODL / IJN: [id number] /
[2021-02-19] MEDS: SODIUM CHLORIDE 0.9% 1,000 ML IV SCH ×2 (05:21→22:10)
[2021-02-19] MEDS: amLODIPine 10 MG TAB PO SCH (09:40)
[2021-02-19] MEDS: POTASSIUM CHLORIDE ER 20 MEQ TAB.ER PO SCH ×2 (09:40→22:10)
[2021-02-19] MEDS: FAMOTIDINE 20 MG TAB PO SCH (09:40)
[2021-02-19] MEDS: METOPROLOL SUCCINATE (ER) 100 MG TAB.ER.24H PO SCH (09:40)
[2021-02-19] MEDS: PANTOPRAZOLE 40 MG TABLET PO SCH ×2 (09:40→22:10)
[2021-02-19] MEDS: APIXABAN 5 MG TAB PO SCH ×2 (09:40→22:10)
[2021-02-19] MEDS: ANASTROZOLE 1 MG TAB PO SCH (09:41)
[2021-02-19] MEDS: PRAZOSIN 1 MG CAP PO SCH (09:41)
[2021-02-19] MEDS: ESCITALOPRAM 10 MG TAB PO SCH (09:41)
[2021-02-19] MEDS: CHOLESTYRAMINE (WITH SUGAR) 4 GM PACKET PO SCH ×3 (09:41→17:27)
[2021-02-19] MEDS: GALANTAMINE HBR 16 MG PO SCH (09:42)
[2021-02-19] MEDS ORDERED: SODIUM FERRIC GLUCONAT-SUCROSE 125 MG in SODIUM CHLORIDE 0.9% 100 ML IVPB ONE (10:00)
--- NOTE | 2021-02-19 10:56 | P.PN ---
Subjective This is an 80-year-old female patient of Dr. Quintanilla with past medical history for ischemic bowel in 2016 status post hemicolectomy done at [facility] as well as return to the OR for closure handsewn anastomosis 2, breast cancer status post bilateral mastectomy, bladder cancer undergoing chemotherapy, chronic anemia, hypertension, hyperlipidemia, paroxysmal atrial fibrillation on chronic eliquis, ASD closure in 2005 at [facility], gastroesophageal reflux disease. Patient was in the hospital from to for neutropenic sepsis secondary to Klebsiella pneumonia and infectious enterocolitis with pancytopenia from chemotherapy. Patient had significant diarrhea which improved with Questran . Patient came to the ER for increased weakness and dizziness. Patient noticed that she is still having significant diarrhea 2-3 times a day. Patient also. I'll order for for reported to the daughter. Patient denies any fever or chills. Patient's oncologist and the patient for admission. Vital severe degree ER suggestive of 97.96 due to respiratory rate 17 and blood pressure 148/65 labs reviewed WBC is 7.1 hemoglobin 8.7 platelets 295, sodium 136, chloride 4.9 bicarb 27 creatinine 1.4 baseline creatinine 0.7 troponin 1 negative. UA negative for infection sifuentes virus negative. Patient evaluated in the room, appears comfortable denies any abdominal pain, nausea or vomiting. She denies any fever or chills. She has daughters who take care of her and follows on her regularly. Patient denies any black stools or blood in her stools. Orthostatics to be obtained. Normal saline continue at 75 mL per hour. No source of infection identified. Stool culture was neg on , infectious disease consulted. 02/18: Patient evaluated this morning, continues to have loose stools and frequent bouts of diarrhea. Repeat CT abdomen and pelvis is been ordered laboratory values unchanged from yesterday, WBC 4.7, hemoglobin 8.1. Kidney function improved from yesterday after IV hydration BUN 6, creatinine 1.03. Vital signs are stable, she is afebrile temp is 98.3, heart rate 62, respiratory of 18, blood pressure 104/60, she's 99% on room air. 02/19: Patient evaluated this morning at the bedside for follow-up. Patient reports diarrhea is improving with the Questran. She denies any nausea, vomiting, or abdominal pain, and states she is feeling better today. Patient underwent repeat computed tomography scan yesterday that showed wall thickening of the terminal ileum that could relate to some inflammatory bowel disease which has improved compared to her last exam. She has colonic lipomatosis, again much improvement in the small bowel mesenteric edema compared to old exam. Cardiomeg kanchan unchanged, fibrotic changes and subsegmental atelectasis at the lung bases, unchanged. Laboratory values showed WBC 4.7, hemoglobin 8.1. Will order oral iron supplements. Stool cultures are pending, if stool cultures are negative possible discharge home tomorrow Objective - Vital Signs Vital signs: Vital Signs Temp 97.7 F 02/19/21 01:45 Pulse 64 02/19/21 01:45 Resp 17 02/19/21 01:45 BP 121/71 02/19/21 01:45 Pulse Ox 96 02/19/21 01:45 Intake & Output 02/18/21 02/19/21 02/19/21 18:59 06:59 18:59 Intake Total 400 Balance 400 Intake: Oral 400 Other: Voiding Method Toilet Diaper # Voids 3 0 # Bowel Movements 2 - Exam - Constitutional General appearance: cooperative, no acute distress - EENT Eyes: anicteric sclerae, PERRLA, normal appearance ENT: hearing grossly normal - Neck Neck: no lymphadenopathy, normal ROM - Respiratory Respiratory: bilateral: CTA, negative: diminished, dullness, rales, rhonchi - Cardiovascular Rhythm: regular Heart sounds: normal: S1, S2 Abnormal Heart Sounds: no systolic murmur, no diastolic murmur - Gastrointestinal General gastrointestinal: normal bowel sounds, soft, serum scar. - Integumentary Integumentary: no rash. - Neurologic Neurologic: No motor or sensory deficit. - Musculoskeletal Musculoskeletal: gait normal, strength equal bilaterally. - Psychiatric Psychiatric: A&O x's 3, appropriate affect. - Labs CBC & Chem 7: 02/18/21 09:59 02/18/21 06:14 Labs: Abnormal Lab Results - Last 24 Hours (Table) 02/18/21 02/18/21 02/18/21 Range/Units 06:14 06:14 09:59 RBC 2.50 L (3.80-5.40) m/uL Hgb 8.1 L (11.4-16.0) gm/dL Hct 24.8 L (34.0-46.0) % RDW 18.2 H (11.5-15.5) % Lymphocytes # 0.4 L (1.0-4.8) k/uL ESR 67 H (0-20) mm/hr Chloride 109 H (98-107) mmol/L BUN 6 L (7-17) mg/dL Iron 35 L (50-170) ug/dL TIBC 198 L (228-460) ug/dL Ferritin 440.7 H (10.0-291.0) ng/mL C-Reactive Protein 1.1 H (<1.0) mg/dL Total Protein 5.9 L (6.3-8.2) g/dL Albumin 2.9 L (3.5-5.0) g/dL Vitamin B12 1864.0 H (200.0-944.0) pg/mL Assessment and Plan Plan: 1. Chronic diarrhea with recent treatment for infectious colitis. Continue Questran will increase to 3 times a day. Continue IV fluids at 75 mL per hour. Infectious disease consult appreciated, CT completed, stool cultures pending 2. Acute kidney injury likely secondary to dehydration and ATN. Lasix discontinued continue normal saline at 75 mL per hour, kidney function improving 3. Acute dizziness likely secondary to dehydration from diarrhea Orthostatics obtained. Continue normal saline at 75 mL per hour 4. Neutropenic sepsis. Resolved 5. Klebsiella pneumoniae bacteremia resolved 6. Pancytopenia secondary to bladder cancer and chemotherapy. off Zarxio at this moment. oncology consulted 7. Bladder cancer chemotherapy on hold . Oncology consult. 8. Anemia of chronic disease hemoglobin stable compared to previous labs continue to monitor 9. Hypertension. Continue losartan 100 mg daily, prazosin 2 mg daily 10. Hyperlipidemia. Continue Lipitor 10 mg at bedtime. 11. Paroxysmal atrial fibrillation. Continue Toprol-XL 100 mg daily, eliquis 12. History of breast cancer. Continue Arimidex 1 mg daily. 13. Gastroesophageal reflux disease and GI prophylaxis. Continue famotidine 20 mg daily. 14. Mild dementia. Continue Aricept 10 mg daily and Namenda 10 mg twice daily 15. Restless leg syndrome. Continue Requip 0.5 mg twice daily. 16. 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 COVID neg Patient will be admitted to the hospital for a minimum of 2 night stay. The above impression and plan of care have been discussed and directed by signing physician. Teodora Berman nurse practitioner acting as scribe for signing physician.
[2021-02-19 11:56] LABS: HCT 23.2 % (37.2-46.3); MCH 31.4 pg (27.0-32.0); MCHC 30.2 g/dL (32.0-37.0); Mean Platelet Volume 10.6 fL (9.5-12.2); Platelet Count 224 X 10*3/uL (140-440); RBC 2.23 X 10*6/uL (4.10-5.20); RDW 18.1 % (11.5-14.5); WBC 4.47 X 10*3/uL (4.50-10.00)
[2021-02-19 12:16] LABS: ALT <8 U/L (8-44); AST 12 U/L (13-35); African American GFR (CKD) 61.2 (60.0-200.0); Albumin/Globulin Ratio 1.33 (1.60-3.17); Alkaline Phosphatase 56 U/L (41-126); Calcium 8.4 mg/dL (8.7-10.3); Carbon Dioxide 23.3 mmol/L (21.6-31.8); Chloride 112 mmol/L (96-109); Globulin 2.4 g/dL (1.6-3.3); Glucose 107 mg/dL (70-110); Non-African American GFR(CKD) 52.8 (60.0-200.0); Sodium 142 mmol/L (135-145); Total Bilirubin 0.4 mg/dL (0.3-1.2); Total Protein 5.6 g/dL (6.2-8.2)
[2021-02-19] MEDS: FERROUS SULFATE 325 MG TAB PO SCH (12:41)
[2021-02-19] MEDS: metroNIDAZOLE 500 MG TAB PO SCH ×2 (15:58→22:10)
--- NOTE | 2021-02-19 18:26 | PN ---
PROGRESS NOTE DATE OF SERVICE: 02/19/2021 REASON FOR FOLLOWUP VISIT: Diarrhea, question of colitis. INTERVAL HISTORY: The patient is currently afebrile. Patient is feeling better. Breathing comfortably. Patient denies having any chest pain or shortness of breath or cough. No abdominal pain. Still complains of some diarrhea. PHYSICAL EXAMINATION: Blood pressure 132/73 with a pulse of 60, temperature 98.2. She is 98% on room air. General description is an elderly female up in the chair in no distress. Respiratory system: Unlabored breathing, clear to auscultation anteriorly. Heart S1, S2. Regular rate and rhythm. Abdomen soft, no tenderness. LABS: Hemoglobin is 7, white count 4.47, BUN of 5, creatinine 1.0. Cultures currently pending. CT did show overall improvement. DIAGNOSTIC IMPRESSION AND PLAN: Patient admitted to the hospital with significant diarrhea in this patient who did have evidence of colitis though overall improvement in the amount of inflammation seen with stool studies pending. Recommend discontinue Lomotil. Continue the Questran. Will add Cipro and Flagyl and see clinical response to it. Family at the bedside, their questions were answered. MMODL / IJN: [id number] /
--- NOTE | 2021-02-19 19:31 | PN ---
PROGRESS NOTE DATE OF SERVICE: 02/19/2021 CHIEF COMPLAINT: Tired. Cat seen today as a followup. She feels tired, but overall she is slightly better. No nausea or vomiting. She had a bowel movement. No melena, hematochezia, hematuria or hemoptysis. CURRENT MEDICATIONS: Reviewed in her electronic medical record. PHYSICAL EXAMINATION: She is alert, oriented x3. She does not appear to be in distress. Her vital signs are temperature 98.1 afebrile, pulse 71 regular, respirations 16, blood pressure 109/67, pulse ox 97% on room air. HEENT: Normocephalic, atraumatic. No icterus. NECK: Supple. CHEST: Equal expansion bilaterally. LUNGS: Clear to auscultation. HEART: Regular rate and rhythm. ABDOMEN: Soft. No tenderness. EXTREMITIES: Revealed no edema. LABORATORY DATA: WBC of 4.7, hemoglobin 7.0, hematocrit 23.1, platelet count 224. Sodium 142, potassium 4.1, chloride 112, BUN is 5, creatinine 1.0, total bilirubin 0.4, AST is 12, ALT is 8. IMPRESSION: 1. 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 The patient was treated with systemic chemotherapy with four cycles of carboplatin and etoposide concurrently with radiation therapy. She completed the planned four cycles of chemotherapy and she is finishing up radiation therapy. 2. Significant weakness secondary to the above treatment and also she is anemic which she appeared to be related to above. 3. Anemia, likely related to chemotherapy and can radiation therapy as well. RECOMMENDATION: 1. Continue current supportive care. 2. In view of her anemia and significant weakness, she would benefit from transfusion with one unit of packed red blood cells. MMODL / IJN: [id number] /
[2021-02-19] MEDS: ATORVASTATIN 10 MG TAB PO SCH (22:10)
[2021-02-19] MEDS: CEFDINIR 300 MG CAP PO SCH (22:10)
[2021-02-20] MEDS ORDERED: NYSTATIN 100,000 UNIT/ML SUSP 500,000 UNIT/5 ML CUP PO SCH (09:00)
[2021-02-20] MEDS: metroNIDAZOLE 500 MG TAB PO SCH ×3 (09:08→21:22)
[2021-02-20] MEDS: PANTOPRAZOLE 40 MG TABLET PO SCH ×2 (09:08→21:22)
[2021-02-20] MEDS: METOPROLOL SUCCINATE (ER) 100 MG TAB.ER.24H PO SCH (09:08)
[2021-02-20] MEDS: ANASTROZOLE 1 MG TAB PO SCH (09:09)
[2021-02-20] MEDS: APIXABAN 5 MG TAB PO SCH ×2 (09:09→21:22)
[2021-02-20] MEDS: POTASSIUM CHLORIDE ER 20 MEQ TAB.ER PO SCH ×2 (09:09→21:22)
[2021-02-20] MEDS: FAMOTIDINE 20 MG TAB PO SCH (09:09)
[2021-02-20] MEDS: CEFDINIR 300 MG CAP PO SCH ×2 (09:09→21:22)
[2021-02-20] MEDS: PRAZOSIN 1 MG CAP PO SCH (09:09)
[2021-02-20] MEDS: amLODIPine 10 MG TAB PO SCH (09:09)
[2021-02-20] MEDS: CHOLESTYRAMINE (WITH SUGAR) 4 GM PACKET PO SCH ×3 (09:10→16:24)
[2021-02-20] MEDS: ESCITALOPRAM 10 MG TAB PO SCH (09:10)
[2021-02-20] MEDS: GALANTAMINE HBR 16 MG PO SCH (09:25)
[2021-02-20] MEDS: SODIUM CHLORIDE 0.9% 1,000 ML IV SCH ×2 (09:30→21:19)
[2021-02-20] MEDS: FLUCONAZOLE 150 MG TAB PO SCH (09:55)
--- NOTE | 2021-02-20 10:57 | P.PN ---
Subjective This is an 80-year-old female patient of Dr. Quintanilla with past medical history for ischemic bowel in 2016 status post hemicolectomy done at [facility] as well as return to the OR for closure handsewn anastomosis 2, breast cancer status post bilateral mastectomy, bladder cancer undergoing chemotherapy, chronic anemia, hypertension, hyperlipidemia, paroxysmal atrial fibrillation on chronic eliquis, ASD closure in 2005 at [facility], gastroesophageal reflux disease. Patient was in the hospital from to for neutropenic sepsis secondary to Klebsiella pneumonia and infectious enterocolitis with pancytopenia from chemotherapy. Patient had significant diarrhea which improved with Questran . Patient came to the ER for increased weakness and dizziness. Patient noticed that she is still having significant diarrhea 2-3 times a day. Patient also. I'll order for for reported to the daughter. Patient denies any fever or chills. Patient's oncologist and the patient for admission. Vital severe degree ER suggestive of 97.96 due to respiratory rate 17 and blood pressure 148/65 labs reviewed WBC is 7.1 hemoglobin 8.7 platelets 295, sodium 136, chloride 4.9 bicarb 27 creatinine 1.4 baseline creatinine 0.7 troponin 1 negative. UA negative for infection sifuentes virus negative. Patient evaluated in the room, appears comfortable denies any abdominal pain, nausea or vomiting. She denies any fever or chills. She has daughters who take care of her and follows on her regularly. Patient denies any black stools or blood in her stools. Orthostatics to be obtained. Normal saline continue at 75 mL per hour. No source of infection identified. Stool culture was neg on , infectious disease consulted. 02/18: Patient evaluated this morning, continues to have loose stools and frequent bouts of diarrhea. Repeat CT abdomen and pelvis is been ordered laboratory values unchanged from yesterday, WBC 4.7, hemoglobin 8.1. Kidney function improved from yesterday after IV hydration BUN 6, creatinine 1.03. Vital signs are stable, she is afebrile temp is 98.3, heart rate 62, respiratory of 18, blood pressure 104/60, she's 99% on room air. 02/19: Patient evaluated this morning at the bedside for follow-up. Patient reports diarrhea is improving with the Questran. She denies any nausea, vomiting, or abdominal pain, and states she is feeling better today. Patient underwent repeat computed tomography scan yesterday that showed wall thickening of the terminal ileum that could relate to some inflammatory bowel disease which has improved compared to her last exam. She has colonic lipomatosis, again much improvement in the small bowel mesenteric edema compared to old exam. Cardiomeg kanchan unchanged, fibrotic changes and subsegmental atelectasis at the lung bases, unchanged. Laboratory values showed WBC 4.7, hemoglobin 8.1. Will order oral iron supplements. Stool cultures are pending, if stool cultures are negative possible discharge home tomorrow 02/20: Patient evaluated this morning, resting in bed comfortably. Patient seems weaker as compared to yesterday. She continues to have bouts of diarrhea. Infectious disease consult appreciated and has started Cipro and Flagyl. Hemoglobin was noted to drop to 7.0, 1 unit of PRBCs were given yesterday. Repeat CBC from this morning is still pending. On exam patient noted to have significant oropharyngeal candidiasis, Diflucan ordered. Multiple attempts were made to obtain IV access, midline ordered for IV fluids and IV Ferrlecit. Once midline line is placed IV Ferrlecit will be given and oral iron supplements will be discontinued. Family would like patient to go to inpatient rehab, Dr. Quezada has been consulted Objective - Vital Signs Vital signs: Vital Signs Temp 98.4 F 02/20/21 08:00 Pulse 64 02/20/21 08:00 Resp 18 02/20/21 08:00 BP 191/80 02/20/21 08:00 Pulse Ox 96 02/20/21 08:00 Intake & Output 02/19/21 02/20/21 02/20/21 18:59 06:59 18:59 Intake Total 550 Output Total 400 Balance 150 Intake: Oral 240 Blood Product 310 Rc As-1 Unit 310 [id number] Output: Urine 400 Other: Voiding Method Toilet Toilet Toilet Diaper Diaper Diaper # Voids 3 # Bowel Movements 1 - Exam - Constitutional General appearance: cooperative, no acute distress - EENT Eyes: anicteric sclerae, PERRLA, normal appearance ENT: hearing grossly normal - Neck Neck: no lymphadenopathy, normal ROM - Respiratory Respiratory: bilateral: CTA, negative: diminished, dullness, rales, rhonchi - Cardiovascular Rhythm: regular Heart sounds: normal: S1, S2 Abnormal Heart Sounds: no systolic murmur, no diastolic murmur - Gastrointestinal General gastrointestinal: normal bowel sounds, soft, serum scar. - Integumentary Integumentary: no rash. - Neurologic Neurologic: No motor or sensory deficit. - Musculoskeletal Musculoskeletal: strength equal bilaterally, generalized weakness - Psychiatric Psychiatric: A&O x's 3, appropriate affect, very forgetful - Labs CBC & Chem 7: 02/19/21 06:44 02/19/21 06:44 Labs: Abnormal Lab Results - Last 24 Hours (Table) 02/19/21 02/19/21 02/19/21 Range/Units 06:44 06:44 18:13 WBC 4.47 L (4.50-10.00) X 10*3/uL RBC 2.23 L (4.10-5.20) X 10*6/uL Hgb 7.0 L (12.0-15.0) g/dL Hct 23.2 L (37.2-46.3) % MCV 104.0 H (80.0-97.0) fL MCHC 30.2 L (32.0-37.0) g/dL RDW 18.1 H (11.5-14.5) % Chloride 112 H (96-109) mmol/L BUN 5.0 L (9.0-27.0) mg/dL Est GFR (CKD-EPI)NonAf 52.8 L (60.0-200.0) BUN/Creatinine Ratio 5.00 L (12.00-20.00) Ratio Calcium 8.4 L (8.7-10.3) mg/dL AST 12 L (13-35) U/L ALT <8 L (8-44) U/L Total Protein 5.6 L (6.2-8.2) g/dL Albumin 3.20 L (3.80-4.90) g/dL Albumin/Globulin Ratio 1.33 L (1.60-3.17) g/dL Crossmatch See Detail Assessment and Plan Plan: 1. Chronic diarrhea with recent treatment for infectious colitis. Continue Questran will increase to 3 times a day. Continue IV fluids at 75 mL per hour once midline is placed. Infectious disease consult appreciated and has initiated Cipro and Flagyl, CT completed, stool cultures pending, seems to not have been collected yet 2. Acute kidney injury likely secondary to dehydration and ATN. Lasix discontinued continue normal saline at 75 mL per hour, kidney function improving 3. Acute dizziness likely secondary to dehydration from diarrhea Orthostatics obtained. Continue normal saline at 75 mL per hour 4. Neutropenic sepsis. Resolved 5. Klebsiella pneumoniae bacteremia resolved 6. Pancytopenia secondary to bladder cancer and chemotherapy. off Zarxio at this moment. oncology consulted 7. Bladder cancer chemotherapy on hold . Oncology consult. 8. Anemia of chronic disease hemoglobin stable compared to previous labs continue to monitor 9. Hypertension. Continue losartan 100 mg daily, prazosin 2 mg daily 10. Hyperlipidemia. Continue Lipitor 10 mg at bedtime. 11. Paroxysmal atrial fibrillation. Continue Toprol-XL 100 mg daily, eliquis 12. History of breast cancer. Continue Arimidex 1 mg daily. 13. Gastroesophageal reflux disease and GI prophylaxis. Continue famotidine 20 mg daily. 14. Mild dementia. Continue Aricept 10 mg daily and Namenda 10 mg twice daily 15. Restless leg syndrome. Continue Requip 0.5 mg twice daily. 16. 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 COVID neg Patient will be admitted to the hospital for a minimum of 2 night stay. The above impression and plan of care have been discussed and directed by signing physician. Teodora Berman nurse practitioner acting as scribe for signing physician.
[2021-02-20] MEDS: FERROUS SULFATE 325 MG TAB PO SCH (11:22)
[2021-02-20 11:24] LABS: Basophils # (A) 0.01 X 10*3/uL (0.00-0.10); Basophils % (A) 0.3 %; Eosinophils # (A) 0.05 X 10*3/uL (0.04-0.35); Eosinophils % (A) 1.3 %; HCT 26.7 % (37.2-46.3); HGB 8.1 g/dL (12.0-15.0); Lymphocytes # (A) 0.46 X 10*3/uL (0.90-5.00); Lymphocytes % (A) 11.9 %; MCH 30.3 pg (27.0-32.0); MCHC 30.3 g/dL (32.0-37.0); Mean Platelet Volume 10.2 fL (9.5-12.2); Monocytes # (A) 0.53 X 10*3/uL (0.20-1.00); Monocytes % (A) 13.8 %; Neutrophils # (A) 2.78 X 10*3/uL (1.80-7.70); Neutrophils % (A) 72.2 %; Platelet Count 217 X 10*3/uL (140-440); RBC 2.67 X 10*6/uL (4.10-5.20); RDW 19.5 % (11.5-14.5); WBC 3.85 X 10*3/uL (4.50-10.00)
[2021-02-20] MEDS ORDERED: SODIUM FERRIC GLUCONAT-SUCROSE 125 MG in SODIUM CHLORIDE 0.9% 100 ML IVPB ONE (12:00)
--- NOTE | 2021-02-20 16:00 | PN ---
PROGRESS NOTE DATE OF SERVICE: February 20, 2021. CHIEF COMPLAINT: Tired. Cat is seen today as a followup. She feels tired, but overall she feels a little better than yesterday. She denies any fever or chills. She has continued to have some diarrhea. No nausea or vomiting. No reported melena or hematochezia. CURRENT MEDICATION: Include the following: Omeprazole 20 mg b.i.d., Requip 0.5 mg b.i.d., 2 mg daily and K-Dur 20 mEq b.i.d., Zofran 4 mg t.i.d. as needed, metoprolol 100 mg daily. Namenda 10 mg b.i.d., losartan 100 mg daily, Galantamine ER 16 mg daily, Lasix 20 mg daily, Pepcid 20 mg daily, Lexapro 10 mg daily, Lomotil 1-2 t.i.d. as needed, Bentyl 10 mg t.i.d. as needed, Questran 4 g b.i.d., Lipitor 10 mg daily, Eliquis 5 mg b.i.d., anastrozole 1 mg daily, Tylenol 650 mg as needed. PHYSICAL EXAMINATION: On physical examination she is alert, oriented x3. She does not appear to be in distress at this time. Her vital signs are temperature 98 a day. She is afebrile. Pulse is 65 regular, respirations 16, blood pressure 123/68, pulse ox 94 percent on room air. HEENT: Normocephalic, atraumatic. No apparent icterus. Oral mucosa are somewhat dry. NECK: Supple. LUNGS are clear to auscultation. HEART: Regular rhythm. ABDOMEN: Soft. There is no obvious tenderness. Bowel sounds present. EXTREMITIES revealed no edema. LABORATORY DATA: WBC are 3.85, hemoglobin 8.1, hematocrit is 26.7, platelets are 217. Sodium 142, potassium 4.0, chloride 111, BUN is 5, creatinine is 1, total bilirubin is 0.4, AST is 12, ALT less than 8, alkaline phosphatase is 56. She had a repeat CT scan of the abdomen and pelvis which revealed improvement in the inflammatory changes in her bowel. IMPRESSION: 1. Small cell carcinoma of the bladder. The patient treated with concurrent chemoradiation therapy. She had 4 cycles of carboplatin and etoposide, which she completed and she is finishing up radiation therapy. 2. Anemia, pancytopenia related to chemo radiation therapy. Her neutrophils have recovered and she remained anemic. This is likely from recent chemoradiation therapy. Her iron studies are more consistent with inflammation and chronic disease rather than iron deficiency anemia. 3. Acute kidney injury, which appears to be improving as well. This is felt to be secondary to dehydration. 4. Diarrhea. The inflammatory changes in her bowel could be related to recent radiation therapy. However, she is currently on broad-spectrum antibiotic awaiting stool studies being managed by Infectious Disease. RECOMMENDATION: 1. Continue current management. 2. She received blood transfusion yesterday and her a hemoglobin has improved. 3. May need to adjust her current antibiotics based on stool studies and may continue Lomotil and Questran as ordered. In regard to chemotherapy, she has completed a total of planned 4 cycles and she has a few more radiation therapy to complete the whole treatment. The above was discussed in detail with the patient. I have answered all her questions. MMERINL / IJN: [id number] /
--- NOTE | 2021-02-20 19:56 | PN ---
PROGRESS NOTE DATE OF SERVICE: 02/20/2021 REASON FOR FOLLOWUP: Colitis. INTERVAL HISTORY: The patient is currently afebrile. The patient is feeling better. The patient denies any further diarrhea. Denies any chest pain or shortness of breath or cough. No abdominal pain. PHYSICAL EXAMINATION: Blood pressure 123/68 with a pulse of 65, temperature 98.5. She is 94% on room air. General description is an elderly female lying in bed in no distress. Respiratory system: Unlabored breathing, clear to auscultation anteriorly. Heart S1, S2. Regular rate and rhythm. Abdomen soft, no tenderness. No edema of feet. LABS: Hemoglobin 8.1, white count 3.85. DIAGNOSTIC IMPRESSION AND PLAN: Patient admitted to the hospital with weakness and did have significant diarrhea with evidence of colitis though the CAT scan shows improvement. The patient at this time to continue with Ceftin oral and Flagyl for another 7-10 days and close outpatient followup. MMODL / IJN: [id number] /
--- NOTE | 2021-02-21 06:28 | P.CONS ---
History of Present Illness - Chief Complaint Medical debility - History of Present Illness I had the opportunity to see patient for inpatient rehab consultation with regard to medical debility. She was admitted to [facility] February 16 history of recent hospitalization [place] for neutropenic sepsis. History of right breast cancer and stereotactic biopsy. Chest x-ray negative. Head CT with age-related change. CT and abdomen and pelvis demonstrates only ilium wall thickening. PT reports modified independent bed mobility, transfers, gait 100 feet with roller walker. OT reports supervision for upper dressing, minimal assistance for lower dressing, bathing and toileting and modified independent with functional mobility and transfers. Previous functional history as elicited from patient: 80-year-old right-handed white female who is lives and 2 floor home with grandson. Patient retired. Describes independent with own cooking, laundry, driving, standing shower or tub bath, gait without device generally. She doesn't 4 wheeled walker she will use when she feels the need. PCP Dr. Quintanilla. Denies tobacco or alcohol. Family history mother with diabetes and hypertension. Review of Systems Review of systems: ENT: Denies sneezes or discharge. Eyes: Denies discharge or photophobia. Cardiac: Denies chest pain or palpitation. Pulmonary: Denies cough or shortness of breath. Breast: Denies discharge or lumps. Gastrointestinal: Denies nausea, emesis, constipation, diarrhea. Genitourinary: Denies discharge or frequency. Musculoskeletal: Denies muscle or bone aches. Neurologic: Mild generalized weakness. Endocrine: Denies shakes or sweats. Oncology: Denies cancers. Dermatologic: Denies rash, itching, pruritus. ALLERGY/immunology: Denies sneezes, rashes. 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 Mild memory changes. upper denture, lower dental implants. perineal/pelvic pain, freq uti, currently resistant to outpatient AB Rx. History of Any Multi-Drug Resistant Organisms: MRSA, Other MDRO Year Discovered:: 06/21/18 MDRO Source:: MRSA CHEST Past Surgical History: Bowel Resection, Breast Surgery, Heart Catheterization, Orthopedic Surgery, Tubal Ligation Additional Past Surgical History / Comment(s): R rotator cuff repair. Bilateral mastectomy 09/22, had failed reconstruction. May 2018 had excision rt and lt reconstructred breast/chest wall deformities. bowel resection 10/2016, heart cath 12/13/17, tiff cataracts, lower dental implants. Past Anesthesia/Blood Transfusion Reactions: Previous Problems w/ Anesthesia, Postoperative Nausea & Vomiting (PONV) Additional Past Anesthesia/Blood Transfusion Reaction / Comm: PATIENT STATES HER TEETH IMPLANTS WERE DISLODGED DURING INTUBATION AND SHE SWALLOWED A TOOTH 2015. pt stated she has recieved blood transfusion in past, no reaction to it. Past Psychological History: No Psychological Hx Reported Additional Psychological History / Comment(s): pt lives alone in 2 story home that has 1 porch step. daughter lives 6 miles from pt. Smoking Status: Former smoker Past Alcohol Use History: None Reported Additional Past Alcohol Use History / Comment(s): started smoking 1967, smoked 1/2 ppd, quit in 1984. Past Drug Use History: None Reported - Past Family History Mother Family Medical History: Myocardial Infarction (AR) Additional Family Medical History / Comment(s): in her 80's Father Family Medical History: Myocardial Infarction (AR) Additional Family Medical History / Comment(s): age 56 from [place] Brother(s) Family Medical History: Cancer Additional Family Medical History / Comment(s): Brain cancer Medications and Allergies Home Medications Medication Instructions Recorded Confirmed Type Apixaban [Eliquis] 5 mg PO BID 11/24/16 02/16/21 History Escitalopram [Lexapro] 10 mg PO DAILY 01/12/17 02/16/21 History Metoprolol Succinate (ER) [Toprol 100 mg PO DAILY 12/14/17 02/16/21 History XL] Atorvastatin Calcium [Lipitor] 10 mg PO HS 03/19/18 02/16/21 History Furosemide [Lasix] 20 mg PO DAILY 03/19/18 02/16/21 History Memantine [Namenda] 10 mg PO BID 11/28/19 02/16/21 History rOPINIRole HCL [Requip] 0.5 mg PO BID 11/28/19 02/16/21 History Anastrozole 1 mg PO DAILY 09/09/20 02/16/21 History Losartan Potassium 100 mg PO DAILY 09/09/20 02/16/21 History Ondansetron [Zofran] 4 mg PO TID PRN 09/09/20 02/16/21 History Famotidine [Pepcid] 20 mg PO DAILY tab 09/11/20 02/16/21 Rx Diphenoxylate HCl/Atropine 1 - 2 tab PO TID PRN 01/25/21 02/16/21 History [Lomotil 2.5-0.025 mg Tablet] Galantamine HBr [Galantamine ER] 16 mg PO DAILY 01/25/21 02/16/21 History Prazosin HCl 2 mg PO DAILY 01/25/21 02/16/21 History Acetaminophen Tab [Tylenol] 650 mg PO Q4HR PRN tab 02/01/21 02/16/21 Rx Cholestyramine (with Sugar) 4 gm PO BID@1000,1800 #60 packet 02/01/21 02/16/21 Rx [Questran Packet] Dicyclomine [Bentyl] 10 mg PO TID PRN #90 cap 02/01/21 02/16/21 Rx Omeprazole [PriLOSEC] 20 mg PO BID 02/16/21 02/16/21 History Potassium Chloride ER [K-Dur 20] 20 meq PO BID 02/16/21 02/16/21 History Allergies Allergy/AdvReac Type Severity Reaction Status Date / Time codeine AdvReac Reaction Verified 02/16/21 16:15 to Tylenol #3 Physical Exam Vitals: Vital Signs Temp Pulse Resp BP BP Pulse Ox 02/21/21 02:30 98.5 F 63 16 110/69 96 02/20/21 19:37 98.5 F 66 16 112/52 95 02/20/21 14:00 98.5 F 65 16 123/60 94 L 02/20/21 08:00 98.4 F 64 18 191/80 96 Intake and Output 02/20/21 02/20/21 02/21/21 14:59 22:59 06:59 Other: Voiding Method Toilet Toilet Diaper Diaper # Voids 3 # Bowel Movements 1 Skin: Atrophic, intact. General: Medium build and comfortable appearance. Head: Normocephalic, atraumatic. Eyes: Symmetric. Pupils equal round. Ears: Symmetric. Hearing within normal limits. Mouth: Clear. Neck: Supple. Carotid without bruit. Cardiac: Regular rate and rhythm. Lungs: Clear anteriorly and posteriorly. Abdomen: Soft active nontender. Extremities: Normal tone. Neurological: Mental status: Alert, cooperative, pleasant. Cranial nerves: Symmetric facial tone and trapezius. Motor: Active movement all 4 limbs. Sensation: Intact throughout. DTRs: Symmetric and equal throughout. Mobility: Did not attempt to sit or stand this early a.m. Results CBC & Chem 7: 02/20/21 06:24 02/19/21 06:44 Labs: Abnormal Lab Results - Last 24 Hours (Table) 02/20/21 Range/Units 06:24 WBC 3.85 L (4.50-10.00) X 10*3/uL RBC 2.67 L (4.10-5.20) X 10*6/uL Hgb 8.1 L (12.0-15.0) g/dL Hct 26.7 L (37.2-46.3) % MCV 100.0 H (80.0-97.0) fL MCHC 30.3 L (32.0-37.0) g/dL RDW 19.5 H (11.5-14.5) % Lymphocytes # 0.46 L (0.90-5.00) X 10*3/uL Assessment and Plan (1) Generalized weakness Current Visit: Yes Status: Acute Priority: High Code(s): R53.1 - WEAKNESS SNOMED Code(s): 20884186 (2) Syncopal episodes Current Visit: Yes Status: Acute Priority: High Code(s): R55 - SYNCOPE AND COLLAPSE SNOMED Code(s): 891990399 (3) Acute renal failure Current Visit: No Status: Acute Code(s): N17.9 - ACUTE KIDNEY FAILURE, UNSPECIFIED SNOMED Code(s): 19590718 (4) Bacteremia Current Visit: No Status: Acute Code(s): R78.81 - BACTEREMIA SNOMED Code(s): 5340915 Plan: Impression: Medical debility syncope, sepsis, acute and chronic kidney disease. 2. Hypertension. 3. Disability. 4. Atrial fibrillation. 5. GERD. 6. Osteoarthritis. Comments and plan: PT and OT are ongoing. PT reports patient to be independent. OT reports patient independent with functional mobility. At this time patient would not meet insurance criteria for inpatient rehab. She is recently benefit SNF and may consider return there. For a short convalescence.
[2021-02-21] MEDS: GALANTAMINE HBR 16 MG PO SCH (08:46)
[2021-02-21] MEDS: POTASSIUM CHLORIDE ER 20 MEQ TAB.ER PO SCH (08:53)
[2021-02-21] MEDS: FAMOTIDINE 20 MG TAB PO SCH (08:53)
[2021-02-21] MEDS: CEFDINIR 300 MG CAP PO SCH (08:53)
[2021-02-21 08:54] LABS: Basophils # (A) 0.02 X 10*3/uL (0.00-0.10); Basophils % (A) 0.4 %; Eosinophils # (A) 0.09 X 10*3/uL (0.04-0.35); HCT 27.3 % (37.2-46.3); HGB 8.3 g/dL (12.0-15.0); Lymphocytes # (A) 0.67 X 10*3/uL (0.90-5.00); Lymphocytes % (A) 14.9 %; MCH 30.9 pg (27.0-32.0); MCHC 30.4 g/dL (32.0-37.0); MCV 101.5 fL (80.0-97.0); Mean Platelet Volume 10.1 fL (9.5-12.2); Monocytes # (A) 0.69 X 10*3/uL (0.20-1.00); Monocytes % (A) 15.3 %; Neutrophils # (A) 3.01 X 10*3/uL (1.80-7.70); Neutrophils % (A) 66.7 %; Platelet Count 224 X 10*3/uL (140-440); RBC 2.69 X 10*6/uL (4.10-5.20); RDW 19.8 % (11.5-14.5); WBC 4.51 X 10*3/uL (4.50-10.00)
[2021-02-21] MEDS: PANTOPRAZOLE 40 MG TABLET PO SCH (08:54)
[2021-02-21] MEDS: METOPROLOL SUCCINATE (ER) 100 MG TAB.ER.24H PO SCH (08:54)
[2021-02-21] MEDS: amLODIPine 10 MG TAB PO SCH (08:54)
[2021-02-21] MEDS: APIXABAN 5 MG TAB PO SCH (08:54)
[2021-02-21] MEDS: metroNIDAZOLE 500 MG TAB PO SCH (08:54)
[2021-02-21] MEDS: FLUCONAZOLE 150 MG TAB PO SCH (08:55)
[2021-02-21] MEDS: ANASTROZOLE 1 MG TAB PO SCH (08:55)
[2021-02-21] MEDS: PRAZOSIN 1 MG CAP PO SCH (08:55)
[2021-02-21] MEDS: CHOLESTYRAMINE (WITH SUGAR) 4 GM PACKET PO SCH (08:55)
[2021-02-21] MEDS: ESCITALOPRAM 10 MG TAB PO SCH (08:56)
--- NOTE | 2021-02-21 09:53 | P.DS ---
Providers Date of admission: 02/16/21 17:49 Expected date of discharge: 02/21/21 Attending physician: Stu Peterson MD Consults: 02/16/21 17:49 Consult Physician Urgent Consulting Provider: Chandrakant Rondon Consult Reason/Comments: Generalized weakness Do you want consulting provider notified?: Yes 02/17/21 13:16 Consult Physician Routine Consulting Provider: Devika Childs Consult Reason/Comments: diarrhea Do you want consulting provider notified?: Yes 02/20/21 08:56 Consult Physician Routine Consulting Provider: Colby Quezada Consult Reason/Comments: IP rehab Do you want consulting provider notified?: Yes Primary care physician: Luisana Quintanilla [facility] Course: This is an 80-year-old female patient of Dr. 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 Patient was in the hospital from to for neutropenic sepsis secondary to Klebsiella pneumonia and infectious enterocolitis with pancytopenia from chemotherapy. Patient had significant diarrhea which improved with Questran . Patient came to the ER for increased weakness and dizziness. Patient noticed that she is still having significant diarrhea 2-3 times a day. Patient also. I'll order for for reported to the daughter. Patient denies any fever or chills. Patient's oncologist and the patient for admission. Vital severe degree ER suggestive of 97.96 due to respiratory rate 17 and blood pressure 148/65 labs reviewed WBC is 7.1 hemoglobin 8.7 platelets 295, sodium 136, chloride 4.9 bicarb 27 creatinine 1.4 baseline creatinine 0.7 troponin 1 negative. UA negative for infection sifuentes virus negative. Patient evaluated in the room, appears comfortable denies any abdominal pain, nausea or vomiting. She denies any fever or chills. She has daughters who take care of her and follows on her regularly. Patient denies any black stools or blood in her stools. Orthostatics to be obtained. Normal saline continue at 75 mL per hour. No source of infection identified. Stool culture was neg on , infectious disease consulted. 02/18: Patient evaluated this morning, continues to have loose stools and frequent bouts of diarrhea. Repeat CT abdomen and pelvis is been ordered laboratory values unchanged from yesterday, WBC 4.7, hemoglobin 8.1. Kidney function improved from yesterday after IV hydration BUN 6, creatinine 1.03. Vital signs are stable, she is afebrile temp is 98.3, heart rate 62, respiratory of 18, blood pressure 104/60, she's 99% on room air. 02/19: Patient evaluated this morning at the bedside for follow-up. Patient reports diarrhea is improving with the Questran. She denies any nausea, vomiting, or abdominal pain, and states she is feeling better today. Patient underwent repeat computed tomography scan yesterday that showed wall thickening of the terminal ileum that could relate to some inflammatory bowel disease which has improved compared to her last exam. She has colonic lipomatosis, again much improvement in the small bowel mesenteric edema compared to old exam. Cardiomegaly unchanged, fibrotic changes and subsegmental atelectasis at the lung bases, unchanged. Laboratory values showed WBC 4.7, hemoglobin 8.1. Will order oral iron supplements. Stool cultures are pending, if stool cultures are negative possible discharge home tomorrow 02/20: Patient evaluated this morning, resting in bed comfortably. Patient seems weaker as compared to yesterday. She continues to have bouts of diarrhea. Infectious disease consult appreciated and has started Cipro and Flagyl. Hemoglobin was noted to drop to 7.0, 1 unit of PRBCs were given yesterday. Repeat CBC from this morning is still pending. On exam patient noted to have significant oropharyngeal candidiasis, Diflucan ordered. Multiple attempts were made to obtain IV access, midline ordered for IV fluids and IV Ferrlecit. Once midline line is placed IV Ferrlecit will be given and oral iron supplements will be discontinued. Family would like patient to go to inpatient rehab, Dr. Quezada has been consulted. 02/21: Patient has been seen by Dr. Quezada. Home care has been arrangeed by casework specialist. Patient has been afebrile, HR 59, BP 123/67, PO 94 room air. Rpeat blood work reveals WBC 4.5, hemoglobin 8.3, platelet count 224. Sodium 142, potassium 4.7, chloride 111, CO2 26, BUN 7 creatinine 1. Vitamin B12 1864. Methylmalonic acid 0.24. RBC folate 1435. Iron 35, TIBC 198, iron saturation 17.6, ferritin 440. One dose of Ferrlecit will be added before discharge. Patient will be set up with Ceftin and Flagyl for 7-10 day course. Patient denies having abdominal pain, nausea. She does have a small lesion on her left arm from an IV site and Bactroban will be ordered. Patient will be discharged home today in stable condition. DISCHARGE DIAGNOSES 1. Chronic diarrhea with recent treatment for infectious colitis. 2. Acute kidney injury likely secondary to dehydration and ATN. 3. Acute dizziness likely secondary to dehydration from diarrhea 4. Neutropenic sepsis. Resolved 5. Klebsiella pneumoniae bacteremia resolved 6. Pancytopenia secondary to bladder cancer and chemotherapy. 7. Bladder cancer chemotherapy on hold. 8. Anemia of chronic disease. 9. Hypertension. 10. Hyperlipidemia. 11. Paroxysmal atrial fibrillation. 12. History of breast cancer. 13. Gastroesophageal reflux disease. 14. Mild dementia. 15. Restless leg syndrome. 16. 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 COVID neg DISCHARGE PLAN Home with [facility] The above impression and plan of care have been discussed and directed by signing physician. Mayi Chang nurse practitioner acting as scribe for signing physician. Patient Condition at Discharge: Good Plan - Discharge Summary Discharge Rx Participant: No New Discharge Prescriptions: New amLODIPine [Norvasc] 10 mg PO DAILY #30 tab Mupirocin 2% Oint [Bactroban 2% Oint] 1 applic TOPICAL TID #15 gm Cefuroxime Axetil [Ceftin] 500 mg PO BID 7 Days #14 tab metroNIDAZOLE [Flagyl] 500 mg PO TID #21 tab Continue Apixaban [Eliquis] 5 mg PO BID Escitalopram [Lexapro] 10 mg PO DAILY Metoprolol Succinate (ER) [Toprol XL] 100 mg PO DAILY Atorvastatin Calcium [Lipitor] 10 mg PO HS Furosemide [Lasix] 20 mg PO DAILY rOPINIRole HCL [Requip] 0.5 mg PO BID Memantine [Namenda] 10 mg PO BID Anastrozole 1 mg PO DAILY Ondansetron [Zofran] 4 mg PO TID PRN PRN Reason: Nausea Famotidine [Pepcid] 20 mg PO DAILY tab Diphenoxylate HCl/Atropine [Lomotil 2.5-0.025 mg Tablet] 1 - 2 tab PO TID PRN PRN Reason: Diarrhea Galantamine HBr [Galantamine ER] 16 mg PO DAILY Dicyclomine [Bentyl] 10 mg PO TID PRN #90 cap PRN Reason: Dyspepsia Cholestyramine (with Sugar) [Questran Packet] 4 gm PO BID@1000,1800 #60 packet Acetaminophen Tab [Tylenol] 650 mg PO Q4HR PRN tab PRN Reason: Fever And/ Or Pain Omeprazole [PriLOSEC] 20 mg PO BID Prazosin HCl 2 mg PO DAILY Potassium Chloride ER [K-Dur 20] 20 meq PO BID Discontinued Losartan Potassium 100 mg PO DAILY Discharge Medication List Apixaban [Eliquis] 5 mg PO BID 11/24/16 [History] Escitalopram [Lexapro] 10 mg PO DAILY 01/12/17 [History] Metoprolol Succinate (ER) [Toprol XL] 100 mg PO DAILY 12/14/17 [History] Atorvastatin Calcium [Lipitor] 10 mg PO HS 03/19/18 [History] Furosemide [Lasix] 20 mg PO DAILY 03/19/18 [History] Memantine [Namenda] 10 mg PO BID 11/28/19 [History] rOPINIRole HCL [Requip] 0.5 mg PO BID 11/28/19 [History] Anastrozole 1 mg PO DAILY 09/09/20 [History] Ondansetron [Zofran] 4 mg PO TID PRN 09/09/20 [History] Famotidine [Pepcid] 20 mg PO DAILY tab 09/11/20 [Rx] Diphenoxylate HCl/Atropine [Lomotil 2.5-0.025 mg Tablet] 1 - 2 tab PO TID PRN 01/25/21 [History] Galantamine HBr [Galantamine ER] 16 mg PO DAILY 01/25/21 [History] Prazosin HCl 2 mg PO DAILY 01/25/21 [History] Acetaminophen Tab [Tylenol] 650 mg PO Q4HR PRN tab 02/01/21 [Rx] Cholestyramine (with Sugar) [Questran Packet] 4 gm PO BID@1000,1800 #60 packet 02/01/21 [Rx] Dicyclomine [Bentyl] 10 mg PO TID PRN #90 cap 02/01/21 [Rx] Omeprazole [PriLOSEC] 20 mg PO BID 02/16/21 [History] Potassium Chloride ER [K-Dur 20] 20 meq PO BID 02/16/21 [History] Cefuroxime Axetil [Ceftin] 500 mg PO BID 7 Days #14 tab 02/21/21 [Rx] Mupirocin 2% Oint [Bactroban 2% Oint] 1 applic TOPICAL TID #15 gm 02/21/21 [Rx] amLODIPine [Norvasc] 10 mg PO DAILY #30 tab 02/21/21 [Rx] metroNIDAZOLE [Flagyl] 500 mg PO TID #21 tab 02/21/21 [Rx] Follow up Appointment(s)/Referral(s): Chandrakant Rondon MD [STAFF PHYSICIAN] - 1 Week (Please call once discharged to set up a follow up appointment) Luisana Quintanilla MD [Primary Care Provider] - 03/01/21 10:30 am [facility], [NON-STAFF] - As Needed Discharge Disposition: HOME WITH HOME HEALTH SERVICES
[2021-02-21 10:00] LABS: ALT <8 U/L (8-44); AST 14 U/L (13-35); African American GFR (CKD) 61.2 (60.0-200.0); Albumin/Globulin Ratio 1.12 (1.60-3.17); Alkaline Phosphatase 65 U/L (41-126); Calcium 8.3 mg/dL (8.7-10.3); Carbon Dioxide 26.1 mmol/L (21.6-31.8); Chloride 111 mmol/L (96-109); Globulin 2.6 g/dL (1.6-3.3); Glucose 85 mg/dL (70-110); Non-African American GFR(CKD) 52.8 (60.0-200.0); Potassium 4.7 mmol/L (3.5-5.5); Sodium 142 mmol/L (135-145); Total Bilirubin 0.4 mg/dL (0.2-1.2); Total Protein 5.5 g/dL (6.2-8.2)
[2021-02-21] MEDS: SODIUM CHLORIDE 0.9% 1,000 ML IV SCH (12:40)
--- NOTE | 2021-02-21 14:43 | PN ---
PROGRESS NOTE DATE OF SERVICE: 02/21/2021 REASON FOR FOLLOWUP: Colitis. INTERVAL HISTORY: The patient is currently afebrile. The patient is breathing comfortably. Patient denies having any chest pain. No shortness of breath or cough. No nausea, vomiting, abdominal pain or diarrhea. PHYSICAL EXAMINATION: Blood pressure 123/67, pulse of 59, temperature 98.3. She is 94% on room air. General description is an elderly female lying in bed in no distress. RESPIRATORY SYSTEM: Unlabored breathing, clear to auscultation anteriorly. HEART: S1, S2. Regular rate and rhythm. ABDOMEN: Soft, no tenderness. LABS: No new labs have been obtained today. DIAGNOSTIC IMPRESSION AND PLAN: Patient admitted to the hospital with diarrhea with evidence of colitis responding to Ceftin and Flagyl, continue for another 10 days and close outpatient followup. Continue supportive care. MMODL / JUSTINN: [id number] /
[2021-02-21 15:29] VITALS: BP 101/62; PULSE 70; RESP 20; TEMP 97.7
[2021-02-22 15:14] LABS: Methylmalonic Acid 0.24 umol/L (<0.40)
--- NOTE | 2021-03-17 07:57 | CDI ---
Documentation Clarification Form Date: 03/17/2021 07:37:00 AM From: Poonam Nova Admit Date: 02/16/2021 05:49:00 PM Patient Name: Cat Overton Visit Number: [id number] Discharge Date: 02/21/2021 03:38:00 PM ATTENTION: The Clinical Documentation Specialists (CDI) and [facility] Coding Staff appreciate your assistance in clarifying documentation. Please respond to the clarification below the line at the bottom and electronically sign. The CDI & [facility] Coding staff will review the response and follow-up if needed. Please note: Queries are made part of the Legal Health Record. If you have any questions, please contact the author of this message via ITS. Dr. 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 DCS and H and P document neutropenic sepsis, resolved. Please clarify if patient had and was treated for neutropenic sepsis on this admit or is neutropenic sepsis resolved prior to admit. History/Risk Factors: continued significant diarrhea Clinical Indicators: WBC: 7.1 Lactic acid: 1.2 Vitals signs: 97.8 F, 63 bpm, 18, 91/47, 96% RA Treatment: antibiotics Antibiotics :Ceftin, Flagyl In your professional opinion, please clarify if these findings signify one of the following conditions: [ ] Sepsis neutropenic POA [x ] Sepsis, neutropenic previous admit not this admit [ ] Other, please specify [ ] Unable to determine SIRS Criteria: 2 or more of the following may indicate SIRS -Temperature < 96.8F (36C) or > 101.0F (38.3C) -Heart Rate > 90 bpm -Respiratory Rate > 20 breaths/min or PaCO2 < 32 mmHg -White Blood Cell Count > 12,000 or < 4,000 cells/mm3 or > 10% bands MTDD
== END 2021-02-21 15:38 | disposition home health service (06) | DRG 393 ==
LOC: EC 13:53 → 5NMEDONC 17:49 → 4SSUR 20:13
PROVIDERS: ADMIT Internal Medicine; ATTEND Internal Medicine
DX: K52.0 Gastroenteritis and colitis due to radiation (principal); D61.810 Antineoplastic chemotherapy induced pancytopenia; N17.0 Acute kidney failure with tubular necrosis; B37.0 Candidal stomatitis; J98.11 Atelectasis; K55.9 Vascular disorder of intestine, unspecified; C67.9 Malignant neoplasm of bladder, unspecified; D09.9 Carcinoma in situ, unspecified; E78.5 Hyperlipidemia, unspecified; E86.0 Dehydration; E88.2 Lipomatosis, not elsewhere classified; F03.90 Unspecified dementia, unspecified severity, without behavioral disturbance, psychotic disturbance, mood disturbance, and anxiety; G25.81 Restless legs syndrome; I13.10 Hypertensive heart and chronic kidney disease without heart failure, with stage 1 through stage 4 chronic kidney disease, or unspecified chronic kidney disease; I48.0 Paroxysmal atrial fibrillation; K21.9 Gastro-esophageal reflux disease without esophagitis; M19.90 Unspecified osteoarthritis, unspecified site; N18.9 Chronic kidney disease, unspecified; T45.1X5A Adverse effect of antineoplastic and immunosuppressive drugs, initial encounter; Y84.2 Radiological procedure and radiotherapy as the cause of abnormal reaction of the patient, or of later complication, without mention of misadventure at the time of the procedure; Z20.822 Contact with and (suspected) exposure to COVID-19; Z79.01 Long term (current) use of anticoagulants; Z79.811 Long term (current) use of aromatase inhibitors; Z79.899 Other long term (current) drug therapy; Z80.8 Family history of malignant neoplasm of other organs or systems; Z82.49 Family history of ischemic heart disease and other diseases of the circulatory system; Z83.3 Family history of diabetes mellitus; Z85.3 Personal history of malignant neoplasm of breast; Z87.440 Personal history of urinary (tract) infections; Z87.74 Personal history of (corrected) congenital malformations of heart and circulatory system; K52.89 Other specified noninfective gastroenteritis and colitis; Z87.891 Personal history of nicotine dependence; Z90.13 Acquired absence of bilateral breasts and nipples; Z90.49 Acquired absence of other specified parts of digestive tract; Z87.01 Personal history of pneumonia (recurrent)
CPT/HCPCS: 36415; 70450; 71046; 74176; 80053; 81003; 82607; 82728; 82747; 83540; 83550; 83605; 83735; 83921; 84484; 85025; 85027; 85610; 85652; 85730; 86140; 86850; 86900; 86901; 86920; 87635; 93005; 96360; 96361; 99285

== ENCOUNTER 2021-04-19 07:44 | Inpatient (IN) | payer MEDICARE ==
[2021-04-19] MEDS ORDERED: PANTOPRAZOLE 40 MG/10 ML VIAL IVP STA (07:57)
[2021-04-19] MEDS ORDERED: SODIUM CHLORIDE 0.9% 1,000 ML IV STA (07:57)
[2021-04-19] MEDS ORDERED: ONDANSETRON 4 MG/2 ML VIAL IVP STA (07:57)
--- NOTE | 2021-04-19 08:02 | ED ---
General Adult HPI - General Chief complaint: Abdominal Pain Stated complaint: abd pain Time Seen by Provider: 04/19/21 07:46 Source: patient, EMS, RN notes reviewed Mode of arrival: EMS Limitations: no limitations - History of Present Illness Initial comments: Patient is a pleasant 80-year-old female presenting to the emergency Department with complaints of abdominal discomfort. Onset of symptoms was a day and a half ago. Patient does have some nausea with several episodes of vomiting. Patient did vomit brown one time. Last bowel movement was yesterday. No constipation or diarrhea. No history of similar symptoms previously. Patient does have history of bladder cancer and currently is finishing up chemotherapy and radiation. Patient reportedly has 2 different types of bladder cancer. Patient is unaware of any spread beyond the bladder. Abdominal discomfort is diffuse. - Related Data Home Medications Medication Instructions Recorded Confirmed Apixaban [Eliquis] 5 mg PO BID 11/24/16 04/19/21 Escitalopram [Lexapro] 10 mg PO DAILY 01/12/17 04/19/21 Metoprolol Succinate (ER) [Toprol 100 mg PO DAILY 12/14/17 04/19/21 XL] Atorvastatin Calcium [Lipitor] 10 mg PO HS 03/19/18 04/19/21 Furosemide [Lasix] 20 mg PO DAILY 03/19/18 04/19/21 Memantine [Namenda] 10 mg PO BID 11/28/19 04/19/21 rOPINIRole HCL [Requip] 0.5 mg PO BID 11/28/19 04/19/21 Anastrozole 1 mg PO DAILY 09/09/20 04/19/21 Ondansetron [Zofran] 4 mg PO TID PRN 09/09/20 04/19/21 Diphenoxylate HCl/Atropine 1 - 2 tab PO TID PRN 01/25/21 04/19/21 [Lomotil 2.5-0.025 mg Tablet] Galantamine HBr [Galantamine ER] 16 mg PO DAILY 01/25/21 04/19/21 Prazosin HCl 2 mg PO DAILY 01/25/21 04/19/21 Omeprazole [PriLOSEC] 20 mg PO DAILY 02/16/21 04/19/21 Acetaminophen Tab [Tylenol] 650 mg PO Q4H PRN 04/19/21 04/19/21 Loperamide [Imodium] 2 mg PO TID PRN 04/19/21 04/19/21 Previous Rx's Medication Instructions Recorded Famotidine [Pepcid] 20 mg PO DAILY tab 09/11/20 Dicyclomine [Bentyl] 10 mg PO TID PRN #90 cap 02/01/21 amLODIPine [Norvasc] 10 mg PO DAILY #30 tab 02/21/21 Allergies Allergy/AdvReac Type Severity Reaction Status Date / Time codeine AdvReac Reaction Verified 04/19/21 09:52 to Tylenol #3 Review of Systems ROS Statement: Those systems with pertinent positive or pertinent negative responses have been documented in the HPI. ROS Other: All systems not noted in ROS Statement are negative. Constitutional: Denies: fever Eyes: Denies: eye pain ENT: Denies: ear pain Respiratory: Denies: cough Cardiovascular: Denies: chest pain Endocrine: Denies: fatigue Gastrointestinal: Reports: abdominal pain, nausea, vomiting Genitourinary: Denies: dysuria Musculoskeletal: Denies: back pain Skin: Denies: rash Neurological: Denies: weakness Past Medical History Past Medical History: Atrial Fibrillation, Cancer, GERD/Reflux, Hyperlipidemia, Hypertension, Memory Impairment, Osteoarthritis (OA), Renal Disease Additional Past Medical History / Comment(s): Hx of anemia, sepsis, Breast Cancer 09/2016, 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 Mild memory changes. upper denture, lower dental implants. perineal/pelvic pain, freq uti, currently resistant to outpatient AB Rx. History of Any Multi-Drug Resistant Organisms: MRSA, Other MDRO Date of last positivie culture/infection: 06/21/18 MDRO Source:: MRSA CHEST Past Surgical History: Bowel Resection, Breast Surgery, Heart Catheterization, Orthopedic Surgery, Tubal Ligation Additional Past Surgical History / Comment(s): R rotator cuff repair. Bilateral mastectomy 09/22, had failed reconstruction. May 2018 had excision rt and lt reconstructred breast/chest wall deformities. bowel resection 10/2016, heart cath 12/13/17, tiff cataracts, lower dental implants. Past Anesthesia/Blood Transfusion Reactions: Previous Problems w/ Anesthesia, Postoperative Nausea & Vomiting (PONV) Additional Past Anesthesia/Blood Transfusion Reaction / Comment(s): PATIENT STATES HER TEETH IMPLANTS WERE DISLODGED DURING INTUBATION AND SHE SWALLOWED A TOOTH 2015. pt stated she has recieved blood transfusion in past, no reaction to it. Past Psychological History: No Psychological Hx Reported Additional Psychological History / Comment(s): pt lives alone in 2 story home that has 1 porch step. daughter lives 6 miles from pt. Smoking Status: Former smoker Past Alcohol Use History: None Reported Additional Past Alcohol Use History / Comment(s): started smoking 1967, smoked 1/2 ppd, quit in 1984. Past Drug Use History: None Reported - Past Family History Mother Family Medical History: Myocardial Infarction ([place]) Additional Family Medical History / Comment(s): in her 80's Father Family Medical History: Myocardial Infarction ([place]) Additional Family Medical History / Comment(s): age 56 from mi Brother(s) Family Medical History: Cancer Additional Family Medical History / Comment(s): Brain cancer General Exam Limitations: no limitations General appearance: alert, in no apparent distress Head exam: Present: normocephalic Eye exam: Present: normal appearance ENT exam: Present: mucous membranes dry Neck exam: Present: normal inspection Respiratory exam: Present: normal lung sounds bilaterally Cardiovascular Exam: Present: regular rate, normal rhythm Expanded Peripheral pulses: 2+: Dorsalis Pedis (R), Dorsalis Pedis (L) GI/Abdominal exam: Present: soft, tenderness (Moderate diffuse tenderness), normal bowel sounds. Absent: pulsatile mass Extremities exam: Present: normal inspection Neurological exam: Present: alert Psychiatric exam: Present: normal affect, normal mood Skin exam: Present: normal color Course Vital Signs 04/19/21 04/19/21 07:47 10:07 Temperature 97.6 F Pulse Rate 64 64 Respiratory 19 17 Rate Blood Pressure 117/58 137/60 O2 Sat by Pulse 98 95 Oximetry Medical Decision Making - Medical Decision Making Patient reevaluated and vomiting. Medication placement Dr. Rose. Case was discussed with Dr. Glass, covering Dr. Quintanilla, who will admit with oncology consult as well as Dr. Doll. Patient updated. - Lab Data Result diagrams: 04/19/21 08:20 04/19/21 07:59 Lab Results 04/19/21 04/19/21 04/19/21 Range/Units 07:59 07:59 08:20 WBC 7.8 (3.8-10.6) k/uL RBC 3.49 L (3.80-5.40) m/uL Hgb 11.9 D (11.4-16.0) gm/dL Hct 33.7 L (34.0-46.0) % MCV 96.6 (80.0-100.0) fL MCH 34.2 (25.0-35.0) pg MCHC 35.4 (31.0-37.0) g/dL RDW 14.8 (11.5-15.5) % Plt Count 277 (150-450) k/uL MPV 7.1 Neutrophils % 86 % Lymphocytes % 9 % Monocytes % 5 % Eosinophils % 0 % Basophils % 0 % Neutrophils # 6.7 (1.3-7.7) k/uL Lymphocytes # 0.7 L (1.0-4.8) k/uL Monocytes # 0.4 (0-1.0) k/uL Eosinophils # 0.0 (0-0.7) k/uL Basophils # 0.0 (0-0.2) k/uL PT 10.6 (9.0-12.0) sec INR 1.0 (<1.2) APTT 25.1 (22.0-30.0) sec Sodium 139 (137-145) mmol/L Potassium 3.9 (3.5-5.1) mmol/L Chloride 105 (98-107) mmol/L Carbon Dioxide 26 (22-30) mmol/L Anion Gap 8 mmol/L BUN 16 (7-17) mg/dL Creatinine 0.81 (0.52-1.04) mg/dL Est GFR (CKD-EPI)AfAm 79 (>60 ml/min/1.73 sqM) Est GFR (CKD-EPI)NonAf 69 (>60 ml/min/1.73 sqM) Glucose 162 H (74-99) mg/dL Calcium 9.7 (8.4-10.2) mg/dL Total Bilirubin 0.7 (0.2-1.3) mg/dL AST 22 (14-36) U/L ALT 11 (4-34) U/L Alkaline Phosphatase 77 (38-126) U/L Total Protein 7.0 (6.3-8.2) g/dL Albumin 4.1 (3.5-5.0) g/dL Amylase 49 (30-110) U/L Lipase 46 (23-300) U/L - Radiology Data Radiology results: report reviewed (Computed tomography scan abdomen pelvis shows small bowel feces sign. Focally dilated small bowel, possible prior surgery or developing obstruction. Possible underlying ileus or small bowel obstruction. Correlate for cholecystitis. Cholelithiasis. Ascites.) Disposition Clinical Impression: Bowel obstruction Disposition: ADMITTED IP TO THIS HOSP Is patient prescribed a controlled substance at d/c from ED?: No Referrals: Luisana Quintanilla MD [Primary Care Provider] - 1-2 days Decision Time: 10:37
[2021-04-19 08:24] LABS: Albumin 4.1 g/dL (3.5-5.0); Calcium 9.7 mg/dL (8.4-10.2); Potassium 3.9 mmol/L (3.5-5.1); Total Bilirubin 0.7 mg/dL (0.2-1.3)
[2021-04-19 08:25] LABS: Partial Thromboplastin Time 25.1 sec (22.0-30.0); Prothrombin Time 10.6 sec (9.0-12.0)
[2021-04-19 08:44] LABS: Basophils % (A) 0 %; Eosinophils % (A) 0 %; HCT 33.7 % (34.0-46.0); Lymphocytes # (A) 0.7 k/uL (1.0-4.8); Lymphocytes % (A) 9 %; MCH 34.2 pg (25.0-35.0); MCHC 35.4 g/dL (31.0-37.0); MCV 96.6 fL (80.0-100.0); Mean Platelet Volume 7.1; Monocytes # (A) 0.4 k/uL (0-1.0); Monocytes % (A) 5 %; Neutrophils # (A) 6.7 k/uL (1.3-7.7); Neutrophils % (A) 86 %; Platelet Count 277 k/uL (150-450); RBC 3.49 m/uL (3.80-5.40); RDW 14.8 % (11.5-15.5); WBC 7.8 k/uL (3.8-10.6)
[2021-04-19 08:49] LABS: HGB 11.9 gm/dL (11.4-16.0)
--- NOTE | 2021-04-19 10:10 | CT ---
EXAMINATION TYPE: CT abdomen pelvis w con DATE OF EXAM: 04/19/2021 COMPARISON: CT 02/18/2021 HISTORY: bilateral upper quadrant pain CT DLP: 1676.6 mGycm Automated exposure control for dose reduction was used. TECHNIQUE: Helical acquisition of images from the lung bases through the pelvis have been completed. CONTRAST: Performed without Oral Contrast and with IV Contrast, patient injected with 100 mL of Isovue 300. FINDINGS: Mitral annular calcification is suspected, there is coronary artery calcification. There is a small hiatal hernia present. LUNG BASES: Some minimal basilar atelectasis or scarring noted. AORTA: No significant abnormality is appreciated. LIVER/GB: The liver is enlarged, dependent high attenuation within the gallbladder is consistent with stone, there is pericholecystic fluid. PANCREAS: No significant abnormality is seen. SPLEEN: No significant abnormality is seen. ADRENALS: No significant abnormality is seen. KIDNEYS: Upper pole left kidney shows a focal oval cyst measuring 2.5 cm. REPRODUCTIVE ORGANS: No significant abnormality is seen BOWEL: There are some fluid-filled distended loops of small bowel. Some postop changes suspected jarocho ng the small bowel, correlate for appropriate history. There is some focally prominent small bowel wi thin the right lower quadrant with a small bowel feces sign. Duodenal diverticulum is present at the head of the pancreas. FREE AIR: No Free Air visible. ASCITES: There is some fluid present about the liver, within the mesentery and within the pelvis. PELVIC ADENOPATHY: None visualized. RETROPERITONEAL ADENOPATHY: No Retroperitoneal Adenopathy visible. URINARY BLADDER: No significant abnormality is seen. OSSEOUS STRUCTURES: Some degenerative disc disease, facet arthropathy noted especially in the lower lumbar spine. IMPRESSION: SMALL BOWEL FECES SIGN, FOCALLY DILATED SMALL BOWEL COULD BE RELATED TO PRIOR SURGERY RATHER THAN DEV ELOPING OBSTRUCTION, CORRELATE, THERE MAY BE UNDERLYING ILEUS RATHER THAN SMALL BOWEL OBSTRUCTION. CO RRELATE FOR CHOLECYSTITIS, THERE IS CHOLELITHIASIS. ASCITES. HEPATOMEGALY.
[2021-04-19] MEDS ORDERED: SCOPOLAMINE 1.5MG/72HR PATCH TRANSDERM STA (10:34)
[2021-04-19] MEDS ORDERED: NALOXONE 0.4 MG/ML 1 ML VIAL IV PRN (10:38)
[2021-04-19] MEDS ORDERED: HYDROmorphone 1 MG/ML 1 ML SYRINGE IVP PRN (10:38)
[2021-04-19] MEDS: ONDANSETRON 4 MG/2 ML VIAL IVP PRN ×3 (10:39→20:48)
[2021-04-19] MEDS ORDERED: PIPERACILLIN-TAZOBACTAM 3.375 GM in SODIUM CHLORIDE 0.9% 100 ML IVPB STA (10:42)
[2021-04-19] MEDS: HYDROmorphone 0.5 MG/0.5 ML SYRINGE IVP PRN ×2 (11:03→20:46)
--- NOTE | 2021-04-19 11:17 | US ---
EXAMINATION TYPE: US gallbladder DATE OF EXAM: 04/19/2021 COMPARISON: Same day CT CLINICAL HISTORY: ab pain. ABD pain EXAM MEASUREMENTS: Liver Length: 21.2 cm Gallbladder Wall: 0.5 cm CBD: 0.5 cm Right Kidney: 9.5 x 4.2 x 4.3 cm Large pt body habitus, immobile, having ABD pain, unable to tolerate probe pressure, unable to take a breath in and hold it Pancreas: Obscured by bowel gas Liver: Enlarged, limited visualization Gallbladder: Distended, stone within neck, unable to roll pt LLD, wall thickened with pericholecysti c fluid as visualized on same day CT Evidence for sonographic Gamble's sign: Yes CBD: wnl Right Kidney: Cortical thinning IMPRESSION: Correlate for cholecystitis. Hepatomegaly. There is cholelithiasis.
[2021-04-19] MEDS: HYDROmorphone 1 MG/ML 1 ML SYRINGE IVP PRN ×2 (14:30→17:27)
--- NOTE | 2021-04-19 15:02 | P.HPIM ---
History of Present Illness H&P Date: 04/19/21 HISTORY OF PRESENT ILLNESS This is an 80-year-old female patient of Dr. Quintanilla with past medical history for ischemic bowel in 2016 status post hemicolectomy done at [facility] as well as return to the OR for closure handsewn anastomosis 2, breast cancer status post bilateral mastectomy, bladder cancer undergoing chemotherapy, chronic anemia, hypertension, hyperlipidemia, paroxysmal atrial fibrillation on chronic eliquis, ASD closure in 2005 at [facility], gastroesophageal reflux disease. Patient had a recent hospitalization which ancelmo e she was treated for infectious colitis, acute kidney injury, neutropenic sepsis, Klebsiella pneumoniae bacteremia, pancytopenia and was discharged home. Patient presented to [facility] emergency center with complaints of vomiting that started yesterday and abdominal bloating. She denies any diarrhea. She states she last received chemotherapy and radiation therapy 3-4 weeks ago. Patient is currently nauseated and retching. She was found to be afebrile, heart rate 64, blood pressure 117/58, pulse ox 98% on room air. WBC 7.8, hemoglobin 0.9, platelet count 277. Electrolytes and renal function came back normal. Blood sugar 162. Liver function tests were normal. Lipase and amylase normal. Gallbladder ultrasound revealed cholecystitis. Hepatomegaly. There is cholelithiasis. CAT scan of the abdomen and pelvis with contrast reveals small bowel feces sign, focally dilated small bowel could be related to prior surgery rather than developing obstruction. There may be underlying ileus rather than small bowel obstruction. Correlate for cholecystitis, there is cholelithiasis. Ascites. Hepatomegaly. REVIEW OF SYSTEMS Constitutional: No fever, no chills, no night sweats. No weight change. Reports weakness, reports fatigue Reports lethargy. No daytime sleepiness. EENT: No headache. No blurred vision or double vision, no loss of vision. No loss of Hearing, no ringing in the ears, no dizziness. No nasal drainage or congestion. No epistaxis. No sore throat. Lungs: No shortness of breath, cough, no sputum production. No wheezing. Cardiovascular: No chest pain, no lower extremity edema. No palpitations. No paroxysmal nocturnal dyspnea. No orthopnea. No lightheadedness or dizziness. No syncopal episodes. Abdominal: Reports abdominal pain. Reports nausea, reports vomiting. Denies. No constipation. No bloody or tarry stools reports loss of appetite. Genitourinary: No dysuria, increased frequency, urgency. No urinary retention. Musculoskeletal: Reports myalgias. Reports muscle weakness, Reports gait dysfunction, no frequent falls. No back pain. No neck pain. Integumentary: No wounds, no lesions. No rash or pruritus. No unusual bruising. Neurologic: No aphasia. No facial droop. No change in mentation. No head injury. No headache. No paralysis. No paresthesia. Psychiatric: No depression. No anxiety. No mood swings. Endocrine: No abnormal blood sugars. SOCIAL HISTORY Patient was a smoker of half a pack a day for 25 years and quit in 1984. No alcohol use, no illicit drug use. Patient lives at home alone. She is normally independent. FAMILY HISTORY Mother in her 80s from myocardial infarction. Father at age 56 from myocardial infarction. Unable to obtain further detail from the patient. PHYSICAL EXAMINATION Gen: This is an 80-year-old female. Patient is resting in bed. She is slightly confused. HEENT: Head is atraumatic, normocephalic. Pupils equal, round. Sclerae is anicteric. NECK: Supple. No JVD. No lymphadenopathy. No thyromegaly. LUNGS: Clear to auscultation. No wheezes or rhonchi. No intercostal retractions. HEART: Irregular rate and rhythm. No murmur. ABDOMEN: Soft. Bowel sounds are present. No masses. Mild generalized tenderness. EXTREMITIES: No pedal edema. No calf tenderness. Dorsalis pedis palpable b ilaterally. NEUROLOGICAL: Patient is awake, alert and oriented to person and place. Cranial nerves 2 through 12 are grossly intact. Generalized weakness noted. ASSESSMENT AND PLAN 1. Acute small bowel obstruction. Patient made nothing by mouth and may require NG tube. Consult with Dr. Urena. Zofran 4 mg IV push every 6 hours as needed for nausea as well as scopolamine patch. Continue IV fluids 0.9 normal saline at 125 mL per hour. Dilaudid 1 mg every 3 hours for pain. 2. History of ischemic bowel in 2016 status post hemicolectomy done at [facility]. Consult general surgery. 3. Bladder cancer status post chemotherapy. Consult with Dr. Rondon. 4. History of breast cancer status post bilateral mastectomy, stable. Hold anastrozole. 5. Hypertension. Norvasc 10 mg daily, prazosin 2 mg daily and Lasix 20 mg daily on hold. 6. Hyperlipidemia. Hold Lipitor. 7. Paroxysmal atrial fibrillation. Hold Toprol-XL 100 mg daily and eliquis 5 mg twice daily. 8. Recurrent depression. Hold Lexapro 10 mg daily. 9. Alzheimer's dementia. Hold galantamine ER 16 mg daily and Namenda 10 mg twice daily. 10. Gastroesophageal reflux disease and GI prophylaxis. Continue Protonix 40 mg IV daily. 11. Restless leg syndrome. Hold Requip 0.5 mg twice daily. 12. DVT prophylaxis. Patient will be admitted to the hospital for a minimum of 2 night stay. DISCHARGE PLAN TBD. Likely return home. PT and OT consults added. Impression and plan of care have been directed as dictated by the signing physician. Mayi Lindsay nurse practitioner acting as scribe for signing physician. 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 Mild memory changes. upper denture, lower dental implants. perineal/pelvic pain, freq uti, currently resistant to outpatient AB Rx. History of Any Multi-Drug Resistant Organisms: MRSA, Other MDRO Date of last positivie culture/infection: 06/21/18 MDRO Source:: MRSA CHEST Past Surgical History: Bowel Resection, Breast Surgery, Heart Catheterization, Orthopedic Surgery, Tubal Ligation Additional Past Surgical History / Comment(s): R rotator cuff repair. Bilateral mastectomy 09/22, had failed reconstruction. May 2018 had excision rt and lt reconstructred breast/chest wall deformities. bowel resection 10/2016, heart cath 12/13/17, tiff cataracts, lower dental implants. Past Anesthesia/Blood Transfusion Reactions: Previous Problems w/ Anesthesia, Postoperative Nausea & Vomiting (PONV) Additional Past Anesthesia/Blood Transfusion Reaction / Comment(s): PATIENT STATES HER TEETH IMPLANTS WERE DISLODGED DURING INTUBATION AND SHE SWALLOWED A TOOTH 2016. pt stated she has recieved blood transfusion in past, no reaction to it. Past Psychological History: No Psychological Hx Reported Additional Psychological History / Comment(s): pt lives alone in 2 story home that has 1 porch step. daughter lives 6 miles from pt. Smoking Status: Former smoker Past Alcohol Use History: None Reported Additional Past Alcohol Use History / Comment(s): started smoking 1967, smoked 1/2 ppd, quit in 1984. Past Drug Use History: None Reported - Past Family History Mother Family Medical History: Myocardial Infarction ([place]) Additional Family Medical History / Comment(s): in her 80's Father Family Medical History: Myocardial Infarction [place]) Additional Family Medical History / Comment(s): age 56 from [place] Brother(s) Family Medical History: Cancer Additional Family Medical History / Comment(s): Brain cancer Medications and Allergies Home Medications Medication Instructions Recorded Confirmed Type Apixaban [Eliquis] 5 mg PO BID 11/24/16 04/19/21 History Escitalopram [Lexapro] 10 mg PO DAILY 01/12/17 04/19/21 History Metoprolol Succinate (ER) [Toprol 100 mg PO DAILY 12/14/17 04/19/21 History XL] Atorvastatin Calcium [Lipitor] 10 mg PO HS 03/19/18 04/19/21 History Furosemide [Lasix] 20 mg PO DAILY 03/19/18 04/19/21 History Memantine [Namenda] 10 mg PO BID 11/28/19 04/19/21 History rOPINIRole HCL [Requip] 0.5 mg PO BID 11/28/19 04/19/21 History Anastrozole 1 mg PO DAILY 09/09/20 04/19/21 History Ondansetron [Zofran] 4 mg PO TID PRN 09/09/20 04/19/21 History Famotidine [Pepcid] 20 mg PO DAILY tab 09/11/20 04/19/21 Rx Diphenoxylate HCl/Atropine 1 - 2 tab PO TID PRN 01/25/21 04/19/21 History [Lomotil 2.5-0.025 mg Tablet] Galantamine HBr [Galantamine ER] 16 mg PO DAILY 01/25/21 04/19/21 History Prazosin HCl 2 mg PO DAILY 01/25/21 04/19/21 History Dicyclomine [Bentyl] 10 mg PO TID PRN #90 cap 02/01/21 04/19/21 Rx Omeprazole [PriLOSEC] 20 mg PO DAILY 02/16/21 04/19/21 History amLODIPine [Norvasc] 10 mg PO DAILY #30 tab 02/21/21 04/19/21 Rx Acetaminophen Tab [Tylenol] 650 mg PO Q4H PRN 04/19/21 04/19/21 History Loperamide [Imodium] 2 mg PO TID PRN 04/19/21 04/19/21 History Allergies Allergy/AdvReac Type Severity Reaction Status Date / Time codeine AdvReac Reaction Verified 04/19/21 09:52 to Tylenol #3 Physical Exam Vitals: Vital Signs Temp Pulse Resp BP Pulse Ox 04/19/21 10:07 64 17 137/60 95 04/19/21 07:47 97.6 F 64 19 117/58 98 Intake and Output 04/18/21 04/19/21 04/19/21 22:59 06:59 14:59 Other: Weight 117.934 kg Results CBC & Chem 7: 04/19/21 08:20 04/19/21 07:59 Labs: Abnormal Lab Results - Last 24 Hours (Table) 04/19/21 04/19/21 Range/Units 07:59 08:20 RBC 3.49 L (3.80-5.40) m/uL Hct 33.7 L (34.0-46.0) % Lymphocytes # 0.7 L (1.0-4.8) k/uL Glucose 162 H (74-99) mg/dL
[2021-04-19] MEDS: SODIUM CHLORIDE 0.9% 1,000 ML IV SCH ×2 (18:49→18:50)
[2021-04-19] MEDS: PIPERACILLIN-TAZOBACTAM 3.375 GM in SODIUM CHLORIDE 0.9% 100 ML IVPB SCH (20:45)
[2021-04-20] MEDS: HYDROmorphone 0.5 MG/0.5 ML SYRINGE IVP PRN (02:07)
[2021-04-20] MEDS: ONDANSETRON 4 MG/2 ML VIAL IVP PRN (02:43)
[2021-04-20] MEDS: SODIUM CHLORIDE 0.9% 1,000 ML IV SCH ×3 (04:00→19:17)
[2021-04-20] MEDS: PIPERACILLIN-TAZOBACTAM 3.375 GM in SODIUM CHLORIDE 0.9% 100 ML IVPB SCH ×3 (04:03→20:21)
[2021-04-20 05:59] LABS: Basophils % (A) 0 %; Eosinophils % (A) 1 %; HGB 10.7 gm/dL (11.4-16.0); Lymphocytes # (A) 0.8 k/uL (1.0-4.8); Lymphocytes % (A) 19 %; MCH 32.6 pg (25.0-35.0); MCHC 32.3 g/dL (31.0-37.0); MCV 100.9 fL (80.0-100.0); Macrocytosis Slight; Mean Platelet Volume 7.2; Monocytes # (A) 0.4 k/uL (0-1.0); Monocytes % (A) 10 %; Neutrophils # (A) 2.9 k/uL (1.3-7.7); Neutrophils % (A) 68 %; Platelet Count 239 k/uL (150-450); RBC 3.27 m/uL (3.80-5.40); RDW 15.5 % (11.5-15.5); WBC 4.3 k/uL (3.8-10.6)
[2021-04-20 06:36] LABS: ALT 11 U/L (4-34); AST 19 U/L (14-36); African American GFR (CKD) 60 (>60 ml/min/1.73 sqM); Albumin 3.8 g/dL (3.5-5.0); Albumin/Globulin Ratio 1.3; Alkaline Phosphatase 64 U/L (38-126); Anion Gap 9 mmol/L; Blood Urea Nitrogen 23 mg/dL (7-17); Calcium 9.3 mg/dL (8.4-10.2); Carbon Dioxide 26 mmol/L (22-30); Chloride 107 mmol/L (98-107); Globulin 2.9 g/dL; Glucose 134 mg/dL (74-99); Non-African American GFR(CKD) 52 (>60 ml/min/1.73 sqM); Sodium 142 mmol/L (137-145); Total Bilirubin 0.5 mg/dL (0.2-1.3); Total Protein 6.7 g/dL (6.3-8.2)
--- NOTE | 2021-04-20 07:36 | P.CONS ---
History of Present Illness - Reason for Consult Consult date: 04/20/21 bladder ca Requesting physician: Mayi Lindsay - History of Present Illness Ms Overton is a pleasant WF, initially seen in consult at [facility] on 12/27/16. She had been admitted with persistent n/v and dehydration, associated with intermittent confusion and hallucinations. She was found to have abnormal findings in the right breast on mammogram in 07/23. She had a stereotactic core biopsy of one area on 07/25/16, revealing ALH. She then had right medial lumpectomy and rt posterior lumpectomy on 08/01/16. The medial specimen revealed a 0.3 cm invasive lobular carcinoma, ER/MD +ve , Her -2 1+ ( -ve), in a background of LCIS and ALH. The posterior specimen showed LCIS and ALH. She had a b/l mastectomy on 09/19/16 with residual low and high grade DCIS on the right and ALH/LCIS on the left. SNB on the right showed isolated tumor cells, with additional 6 nodes negative. She had a bowel resection for ischemic bowel at [facility] later in 09/22. The concern , in the 12/22 admission, was for a paraneoplastic syndrome or recurrence. This was felt to be highly unlikely, given the very early stage of her cancer. She had a CT CAP, tumor markers and MRI brain, all negative for any evidence of malignancy. She had a PEG placement in 01/22 as well as endoscopies at [facility], with the latter also negative. The pt did improve slowly. The n/v and MS changes were ultimately felt to be medication related and resolved with adjustment of the same. She was transferrred to [facility] and discharged home in mid 03/24. Her PO intake gradually improved, and she stopped using the PEG in early 03/24. She was seen for her 1st OV on 03/26/17. Due to the early stage, marker status and pt's age, as well b/l mastectomies, it was felt that any benefit from adjuvant hormonal therapy would be quite low. After discussion of risks and benefits, the pt decided against the same, which was felt to be reasonable. She was thus recommended f/u with her PCP and surgery The pt developed recurrent infections in her chest wall subsequently, including an admission in 07/25 for MRSA, requiring Iv antibiotics inpt and o utpt. She had to have her implants removed and was not felt to be a candidate for further reconstruction. She had revision for redundant tissue in her chest wall in 05/25 with pathology showing no obvious malignancy She was referred back by Surgery in 10/26 It was felt that any benefit from AI would be low. however the pt then decided to take the AI, and started in 11/26. Baseline BMD in 12/24 was normal. She had an accidental fall in 01/24 and suffered trauma to the rt shoulder and chest wall. No fractures occurred. when seen in 07/26 she reported that she had not taken the AI for a few months, as she did not refill her prescription for the previous one. she had also missed her previous scheduled appointment. She reported having progressive issues with memory. She has been deaing with recurrent UTIs since about early fall of 2018. She was starting IV antibiotics for 10 days, and had a PICC placed, when seen in 11/27. the patient had urine cytology done in 04/26 which was positive for high-grade urothelial carcinoma. she then proceeded to cystoscopy by Dr. Chavez on 05/05/20. She had biopsies done from about 5 sites with 4 showing urothelial carcinoma in situ. 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 The patient was referred to urology at [facility]. She had a CT urogram on 06/02/20 that showed no obvious metastatic disease in the abdomen or pelvis. She was recommended chemotherapy prior to surgical evaluation, and was referred back here and seen on 06/15/20 PET and MRI showed no metastatic disease. The patient was then started on STEM CRUSHER-16 and carboplatin on 06/23/20 and is status post 3 cycles She denied any f/c/v/LAD/abdominal pain. SHe does have intermittent nausea lasting up to 2 wks post chemo. She has had mouth sores, with decreased appetite, responsive to Cool's solution. She reports nodular inflammation on her scalp. She reports decreased endurance, and family feels she may be SOB on exertion. Dopplers after C 2 were negative. She reports intermittent crampy pain in her LE. She had 1 episode, where she thought her stool was black. She still has some redundant tissue in b/l axillary areas. No significant UE swelling , or limitation of ROM at shoulders. Her ROS is otherwise as per HPI and negative out of 10. 09/16/20-Pt here today s/p 4/4 cycles of adj carbo/STEM CRUSHER for bladder ca. She is following up at [facility] in [place]. Eyes hurt, neck hurts, generalized fatigue, appetite/taste poor, wt stable. No other c/o. patient was subsequently evaluated at the [facility]. It was decided at that time that she would not be an optimal candidate for surgery. It was recommended that she instead have chemoradiation. She was started on the same concurrently with the same regimen as repeat cystoscopy had shown a very good response. She is status post 2 cycles. 01/05/21-Pt here today s/p 1/2 additional cycles of carbo/STEM CRUSHER with XRT, 33 planned, she has had around 7 at this time-it was decided no surgery. Her eyes are hurting, blurry vision, left eye, mouth is very dry, not feeling too bad otherwise. No other c/o today. vision completed cycle 2 on 01/19/21. She was admitted to the hospital on 01/25/21 for progressive weakness, diarrhea and increasing abdominal pain. She was found to have significant pancytopenia and evidence of neutropenic colitis. She recovered slowly with aggressive supportive treatment. Radiation was held during her hospitalization. the patient was readmitted to the hospital after her visit on 02/16/21, for persistent weakness, decreased appetite and oral intake, and ongoing diarrhea. She had extensive workup during hospitalization including CT of the abdomen and pelvis as well as MRI of the brain which were negative for any evidence of recurrent malignancy. Infection workup was also negative. The patient improved with hydration. She was placed on antibiotics by ID for persistent diarrhea for presumed infectious colitis. She was discharged home with home care on 02/21/21 She denied any fevers/chills. She continues to have some nausea off and on. She still has some abdominal discomfort, now localized to the lower abdomen/pelvis and 3-4 loose bowel movements per day. She denies any mouth sores. Appetite is slowly improving. Generalized weakness persists. according to her daughter she continues to have issues with recall, with overall slow cognition. Review of systems otherwise as per HPI and negative out of 10 Last seen in office on 03/14/21 by RUBIA Ramirez-Pt here for CBC, completed 6 cycles of carbo/STEM CRUSHER in January 2021. Pt and family are having trouble agreeing on eating/diet/wt/nutrition. Pt states she has no appetite but states she has not lost wt. Family states pt is not eating and what she is eating is not healthy. Daughter reports pt having cramping and pain in the lower abd with BM, pt will have sweats, looked flushed, and HTN, this has happened x 3 in the last 8 days. Stopped bentyl 4 days ago. No fever, N,V, acute changes in breathing, pt can get around home ok. during that visit they reviewed current diet, appetite, wt loss vs wt gain- what's healthy and what is not about both-, healthy food choices, balanced diet Do puzzles, read, music therapy for memory issues Scar tissue massage reviewed Reviewed med list, refills accordingly A Rx for bentyl for abdominal cramping was provided She now presents with complaints of nausea and bloating, abdominal discomfort. CT abdomen and pelvis show stool, and potential ileus. SHe is currently NPO awaiting evaualtion from surgery. Review of Systems All systems: negative Constitutional: Reports as per HPI Past Medical History Past Medical History: Atrial Fibrillation, Cancer, GERD/Reflux, Hyperlipidemia, Hypertension, Memory Impairment, Osteoarthritis (OA), Renal Disease Additional Past Medical History / Comment(s): Hx of anemia, sepsis, Breast Cancer 09/2016, 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 Mild memory changes. upper denture, lower dental implants. perineal/pelvic pain, freq uti, currently resistant to outpatient AB Rx. History of Any Multi-Drug Resistant Organisms: MRSA, Other MDRO Year Discovered:: 06/21/18 MDRO Source:: MRSA CHEST Past Surgical History: Bowel Resection, Breast Surgery, Heart Catheterization, Orthopedic Surgery, Tubal Ligation Additional Past Surgical History / Comment(s): R rotator cuff repair. Bilateral mastectomy 09/22, had failed reconstruction. May 2018 had excision rt and lt reconstructred breast/chest wall deformities. bowel resection 10/2016, heart cath 12/13/17, tiff cataracts, lower dental implants. Past Anesthesia/Blood Transfusion Reactions: Previous Problems w/ Anesthesia, Postoperative Nausea & Vomiting (PONV) Additional Past Anesthesia/Blood Transfusion Reaction / Comm: PATIENT STATES HER TEETH IMPLANTS WERE DISLODGED DURING INTUBATION AND SHE SWALLOWED A TOOTH 2015. pt stated she has recieved blood transfusion in past, no reaction to it. Past Psychological History: No Psychological Hx Reported Additional Psychological History / Comment(s): pt lives alone in 2 story home that has 1 porch step. daughter lives 6 miles from pt. Smoking Status: Former smoker Past Alcohol Use History: None Reported Additional Past Alcohol Use History / Comment(s): started smoking 1967, smoked 1/2 ppd, quit in 1984. Past Drug Use History: None Reported - Past Family History Mother Family Medical History: Myocardial Infarction ([place]) Additional Family Medical History / Comment(s): in her 80's Father Family Medical History: Myocardial Infarction ([place]) Additional Family Medical History / Comment(s): age 56 from [place] Brother(s) Family Medical History: Cancer Additional Family Medical History / Comment(s): Brain cancer Medications and Allergies Home Medications Medication Instructions Recorded Confirmed Type Apixaban [Eliquis] 5 mg PO BID 11/24/16 04/19/21 History Escitalopram [Lexapro] 10 mg PO DAILY 01/12/17 04/19/21 History Metoprolol Succinate (ER) [Toprol 100 mg PO DAILY 12/14/17 04/19/21 History XL] Atorvastatin Calcium [Lipitor] 10 mg PO HS 03/19/18 04/19/21 History Furosemide [Lasix] 20 mg PO DAILY 03/19/18 04/19/21 History Memantine [Namenda] 10 mg PO BID 11/28/19 04/19/21 History rOPINIRole HCL [Requip] 0.5 mg PO BID 11/28/19 04/19/21 History Anastrozole 1 mg PO DAILY 09/09/20 04/19/21 History Ondansetron [Zofran] 4 mg PO TID PRN 09/09/20 04/19/21 History Famotidine [Pepcid] 20 mg PO DAILY tab 09/11/20 04/19/21 Rx Diphenoxylate HCl/Atropine 1 - 2 tab PO TID PRN 01/25/21 04/19/21 History [Lomotil 2.5-0.025 mg Tablet] Galantamine HBr [Galantamine ER] 16 mg PO DAILY 01/25/21 04/19/21 History Prazosin HCl 2 mg PO DAILY 01/25/21 04/19/21 History Dicyclomine [Bentyl] 10 mg PO TID PRN #90 cap 02/01/21 04/19/21 Rx Omeprazole [PriLOSEC] 20 mg PO DAILY 02/16/21 04/19/21 History amLODIPine [Norvasc] 10 mg PO DAILY #30 tab 02/21/21 04/19/21 Rx Acetaminophen Tab [Tylenol] 650 mg PO Q4H PRN 04/19/21 04/19/21 History Loperamide [Imodium] 2 mg PO TID PRN 04/19/21 04/19/21 History Allergies Allergy/AdvReac Type Severity Reaction Status Date / Time codeine AdvReac Reaction Verified 04/19/21 09:52 to Tylenol #3 Physical Exam Vitals: Vital Signs Temp Pulse Pulse Resp BP BP Pulse Ox 04/20/21 05:00 97.8 F 71 18 149/72 95 04/19/21 19:49 97.5 F L 54 L 16 122/70 92 L 04/19/21 18:05 62 18 109/67 93 L 04/19/21 16:51 60 18 115/52 97 04/19/21 14:09 60 18 129/59 96 04/19/21 10:07 64 17 137/60 95 04/19/21 07:47 97.6 F 64 19 117/58 98 Intake and Output 04/19/21 04/20/21 04/20/21 22:59 06:59 14:59 Intake Total 1830 Balance 1830 Intake: Intake, IV Titration 1830 Amount Piperacillin-Tazobactam 3 100 .375 gm In Sodium Chloride 0.9% 100 ml @ 200 mls/hr IVPB ONCE STA Rx#:[id number] Piperacillin-Tazobactam 3 100 .375 gm In Sodium Chloride 0.9% 100 ml @ 25 mls/hr IVPB Q8H AZEEM Rx#: [id number] Sodium Chloride 0.9% 1, 1500 000 ml @ 125 mls/hr IV . Q8H AZEEM Rx#:[id number] Sodium Chloride 0.9% 1, 130 000 ml @ 130 mls/hr IV . Q7H42M STA Rx#:[id number] Other: Voiding Method Diaper - Constitutional General appearance: Present: no acute distress - EENT Eyes: Present: EOMI ENT: Present: hearing grossly normal, normal oropharynx - Neck Thyroid: bilateral: normal size - Respiratory Respiratory: bilateral: CTA - Cardiovascular Rhythm: regular Heart sounds: normal: S1, S2 - Gastrointestinal General gastrointestinal: distended, tender - Integumentary Integumentary: Present: normal - Neurologic Neurologic: Present: CNII-XII intact - Musculoskeletal Musculoskeletal: Present: generalized weakness, strength equal bilaterally - Psychiatric Psychiatric: Present: A&O x's 3, appropriate affect Results CBC & Chem 7: 04/20/21 04:54 04/20/21 04:54 Labs: Abnormal Lab Results - Last 24 Hours (Table) 04/19/21 04/19/21 04/20/21 Range/Units 07:59 08:20 04:54 RBC 3.49 L 3.27 L (3.80-5.40) m/uL Hgb 10.7 L (11.4-16.0) gm/dL Hct 33.7 L 33.0 L (34.0-46.0) % MCV 100.9 H (80.0-100.0) fL Lymphocytes # 0.7 L 0.8 L (1.0-4.8) k/uL BUN (7-17) mg/dL Glucose 162 H (74-99) mg/dL 04/20/21 Range/Units 04:54 RBC (3.80-5.40) m/uL Hgb (11.4-16.0) gm/dL Hct (34.0-46.0) % MCV (80.0-100.0) fL Lymphocytes # (1.0-4.8) k/uL BUN 23 H (7-17) mg/dL Glucose 134 H (74-99) mg/dL CT scan - abdomen: report reviewed CT scan - pelvis: report reviewed Assessment and Plan (1) Ileus Current Visit: Yes Status: Acute Code(s): K56.7 - ILEUS, UNSPECIFIED SNOMED Code(s): 691270510 (2) Bladder cancer Current Visit: No Status: Chronic Priority: Medium Code(s): C67.9 - MALIGNANT NEOPLASM OF BLADDER, UNSPECIFIED SNOMED Code(s): 979778830 Plan: Gen surgery following CHolelithiasis, ileus. Currently NPO NG tube LIS MONITOR cbc, REPLACE ELECTROLYTES AND nutritional needs as indicated in labs PHYSICIAN ATTEST: i HAVE COMPLETED THE FULL HISTORY AND PHYSICAL AND AGREE WITH ABOVE DICTATION, DICTATED A ASCRIBE
[2021-04-20] MEDS: PANTOPRAZOLE 40 MG/10 ML VIAL IV SCH (08:04)
[2021-04-20] MEDS: HYDROmorphone 1 MG/ML 1 ML SYRINGE IVP PRN ×2 (08:04→14:23)
--- NOTE | 2021-04-20 09:43 | XR ---
EXAMINATION TYPE: XR abdomen 1V DATE OF EXAM: 04/20/2021 COMPARISON: NONE HISTORY: Pain TECHNIQUE: Single supine KUB image of the abdomen is obtained FINDINGS: NG tube is seen coursing into the stomach. Dilated proximal small bowel measuring up to 5.9 cm in gre atest dimension. Small bowel demonstrates no evidence for dilatation or air fluid levels. Gas and fecal material is seen in non-distended colon. No convincing evidence for pneumoperitoneum. No unusual calcifications. The lung bases are clear. Contrast is identified within the urinary bladder. IMPRESSION: 1. Dilated proximal small bowel may reflect ileus although is nonspecific. NG tube is in place.
--- NOTE | 2021-04-20 11:04 | P.GSCN ---
History of Present Illness Consult date: 04/20/21 History of present illness: 80-year-old female presented to the emergency department with complaints of abdominal pain, nausea and dark-colored emesis. She also complained of fatigue and weakness at the time of her arrival. She is noted to have significant surgical or medical history. She has a history for ischemic bowel in 2016 status post hemicolectomy done at [facility] as well as return to the OR for closure handsewn anastomosis 2, breast cancer status post bilateral mastectomy, bladder cancer undergoing chemotherapy, chronic anemia, hypertension, hyperlipidemia, paroxysmal atrial fibrillation on chronic eliquis, ASD closure in 2005 at [facility], gastroesophageal reflux disease. She states that her last chemotherapy was approximately 2 weeks ago. She states that she has completed both chemotherapy and radiation secondary to bladder cancer. On work-up, patient has had a CT of the abdomen and pelvis along with ultrasound of the gallbladder, concerning for cholecystitis and ileus. Patient also has nasogastric tube in place with dark output. She states that since her arrival to the hospital she is beginning to feel better and abdominal pain has somewhat improved.She denies any fevers or chills at this time. Review of Systems All systems: negative Past Medical History Past Medical History: Atrial Fibrillation, Cancer, GERD/Reflux, Hyperlipidemia, Hypertension, Memory Impairment, Osteoarthritis (OA), Renal Disease Additional Past Medical History / Comment(s): Hx of anemia, sepsis, Breast Cancer 09/2016, 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 Mild memory changes. upper denture, lower dental implants. perineal/pelvic pain, freq uti, currently resistant to outpatient AB Rx. History of Any Multi-Drug Resistant Organisms: MRSA, Other MDRO Year Discovered:: 06/21/18 MDRO Source:: MRSA CHEST Past Surgical History: Bowel Resection, Breast Surgery, Heart Catheterization, Orthopedic Surgery, Tubal Ligation Additional Past Surgical History / Comment(s): R rotator cuff repair. Bilateral mastectomy 09/22, had failed reconstruction. May 2018 had excision rt and lt reconstructred breast/chest wall deformities. bowel resection 10/2016, heart cath 12/13/17, tiff cataracts, lower dental implants. Past Anesthesia/Blood Transfusion Reactions: Previous Problems w/ Anesthesia, Postoperative Nausea & Vomiting (PONV) Additional Past Anesthesia/Blood Transfusion Reaction / Comm: PATIENT STATES HER TEETH IMPLANTS WERE DISLODGED DURING INTUBATION AND SHE SWALLOWED A TOOTH 2015. pt stated she has recieved blood transfusion in past, no reaction to it. Past Psychological History: No Psychological Hx Reported Additional Psychological History / Comment(s): pt lives alone in 2 story home that has 1 porch step. daughter lives 6 miles from pt. Smoking Status: Former smoker Past Alcohol Use History: None Reported Additional Past Alcohol Use History / Comment(s): started smoking 1967, smoked 1/2 ppd, quit in 1984. Past Drug Use History: None Reported - Past Family History Mother Family Medical History: Myocardial Infarction ([place]) Additional Family Medical History / Comment(s): in her 80's Father Family Medical History: Myocardial Infarction ([place]) Additional Family Medical History / Comment(s): age 56 from [place] Brother(s) Family Medical History: Cancer Additional Family Medical History / Comment(s): Brain cancer Medications and Allergies Home Medications Medication Instructions Recorded Confirmed Type Apixaban [Eliquis] 5 mg PO BID 11/24/16 04/19/21 History Escitalopram [Lexapro] 10 mg PO DAILY 01/12/17 04/19/21 History Metoprolol Succinate (ER) [Toprol 100 mg PO DAILY 12/14/17 04/19/21 History XL] Atorvastatin Calcium [Lipitor] 10 mg PO HS 03/19/18 04/19/21 History Furosemide [Lasix] 20 mg PO DAILY 03/19/18 04/19/21 History Memantine [Namenda] 10 mg PO BID 11/28/19 04/19/21 History rOPINIRole HCL [Requip] 0.5 mg PO BID 11/28/19 04/19/21 History Anastrozole 1 mg PO DAILY 09/09/20 04/19/21 History Ondansetron [Zofran] 4 mg PO TID PRN 09/09/20 04/19/21 History Famotidine [Pepcid] 20 mg PO DAILY tab 09/11/20 04/19/21 Rx Diphenoxylate HCl/Atropine 1 - 2 tab PO TID PRN 01/25/21 04/19/21 History [Lomotil 2.5-0.025 mg Tablet] Galantamine HBr [Galantamine ER] 16 mg PO DAILY 01/25/21 04/19/21 History Prazosin HCl 2 mg PO DAILY 01/25/21 04/19/21 History Dicyclomine [Bentyl] 10 mg PO TID PRN #90 cap 02/01/21 04/19/21 Rx Omeprazole [PriLOSEC] 20 mg PO DAILY 02/16/21 04/19/21 History amLODIPine [Norvasc] 10 mg PO DAILY #30 tab 02/21/21 04/19/21 Rx Acetaminophen Tab [Tylenol] 650 mg PO Q4H PRN 04/19/21 04/19/21 History Loperamide [Imodium] 2 mg PO TID PRN 04/19/21 04/19/21 History Allergies Allergy/AdvReac Type Severity Reaction Status Date / Time codeine AdvReac Reaction Verified 04/19/21 09:52 to Tylenol #3 Surgical - Exam Osteopathic Statement: *. No significant issues noted on an osteopathic structural exam other than those noted in the History and Physical/Consult. Vital Signs Temp Pulse Resp BP Pulse Ox 97.6 F 64 19 117/58 98 04/19/21 07:47 04/19/21 07:47 04/19/21 07:47 04/19/21 07:47 04/19/21 07:47 - General no distress - ENT no hearing loss - Neck trachea midline - Abdomen Soft, nontender to palpation, some tenderness to percussion in right upper quadrant, no rebound, no guarding, Significant midline scarring from patient's previous laparotomy procedures - Psychiatric Somewhat confused with questioning Results - Labs 04/20/21 04:54 04/20/21 04:54 Abnormal Lab Results - Last 24 Hours (Table) 04/20/21 04/20/21 Range/Units 04:54 04:54 RBC 3.27 L (3.80-5.40) m/uL Hgb 10.7 L (11.4-16.0) gm/dL Hct 33.0 L (34.0-46.0) % MCV 100.9 H (80.0-100.0) fL Lymphocytes # 0.8 L (1.0-4.8) k/uL BUN 23 H (7-17) mg/dL Glucose 134 H (74-99) mg/dL Diabetes panel 04/20/21 Range/Units 04:54 Sodium 142 (137-145) mmol/L Potassium 4.0 (3.5-5.1) mmol/L Chloride 107 (98-107) mmol/L Carbon Dioxide 26 (22-30) mmol/L BUN 23 H (7-17) mg/dL Creatinine 1.02 (0.52-1.04) mg/dL Glucose 134 H (74-99) mg/dL Calcium 9.3 (8.4-10.2) mg/dL AST 19 (14-36) U/L ALT 11 (4-34) U/L Alkaline Phosphatase 64 (38-126) U/L Total Protein 6.7 (6.3-8.2) g/dL Albumin 3.8 (3.5-5.0) g/dL Calcium panel 04/20/21 Range/Units 04:54 Calcium 9.3 (8.4-10.2) mg/dL Albumin 3.8 (3.5-5.0) g/dL Pituitary panel 04/20/21 Range/Units 04:54 Sodium 142 (137-145) mmol/L Potassium 4.0 (3.5-5.1) mmol/L Chloride 107 (98-107) mmol/L Carbon Dioxide 26 (22-30) mmol/L BUN 23 H (7-17) mg/dL Creatinine 1.02 (0.52-1.04) mg/dL Glucose 134 H (74-99) mg/dL Calcium 9.3 (8.4-10.2) mg/dL Adrenal panel 04/20/21 Range/Units 04:54 Sodium 142 (137-145) mmol/L Potassium 4.0 (3.5-5.1) mmol/L Chloride 107 (98-107) mmol/L Carbon Dioxide 26 (22-30) mmol/L BUN 23 H (7-17) mg/dL Creatinine 1.02 (0.52-1.04) mg/dL Glucose 134 H (74-99) mg/dL Calcium 9.3 (8.4-10.2) mg/dL Total Bilirubin 0.5 (0.2-1.3) mg/dL AST 19 (14-36) U/L ALT 11 (4-34) U/L Alkaline Phosphatase 64 (38-126) U/L Total Protein 6.7 (6.3-8.2) g/dL Albumin 3.8 (3.5-5.0) g/dL Assessment and Plan Plan: 80-year-old female with complaints of abdominal pain on arrival to the emergency department. Patient is found to have an ileus that appears to be improving with nasogastric tube decompression. Ileus is likely cause secondary to cholecystitis. Patient does have some baseline confusion when discussing surgical care. We will need to discuss with patient's family goals of care and next steps for any surgical procedure. Based on her significant surgical history of the abdomen, there is a high likelihood of requiring an open cholecystectomy which can lead to a lengthy recovery for a patient that has recently been under chemotherapy and radiation. This will be discussed with patient's primary team along with patient and patient's family prior to making any surgical decision.
[2021-04-20 11:16] LABS: Appearance,Urine Clear (Clear); Bilirubin,Urine Negative (Negative); Blood,Urine Trace (Negative); Color,Urine Yellow; Glucose,Urine (UA) Negative (Negative); Ketones,Urine Negative (Negative); Leukocyte Esterase,Urine Negative (Negative); Mucus,Urine Rare /hpf; Nitrite,Urine Negative (Negative); PH, Urine 5.5 (5.0-8.0); Protein,Urine Trace (Negative); RBC,Urine 3 /hpf (0-5); Urobilinogen,Urine <2.0 mg/dL (<2.0); WBC,Urine 2 /hpf (0-5)
[2021-04-20 11:25] LABS: Specific Gravity,Urine >1.050 (1.001-1.035)
[2021-04-20] MEDS: BENZOCAINE SPRAY 1 CAN MUCOUS MEM PRN ×2 (12:00→20:25)
--- NOTE | 2021-04-20 14:38 | P.PN ---
Subjective Progress Note Date: 04/20/21 HISTORY OF PRESENT ILLNESS This is an 80-year-old female patient of Dr. 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 Patient had a recent hospitalization which time she was treated for infectious colitis, acute kidney injury, neutropenic sepsis, Klebsiella pneumoniae bacteremia, pancytopenia and was discharged home. Patient presented to [facility] emergency center with complaints of vomiting that started yesterday and abdominal bloating. She de nies any diarrhea. She states she last received chemotherapy and radiation therapy 3-4 weeks ago. Patient is currently nauseated and retching. She was found to be afebrile, heart rate 64, blood pressure 117/58, pulse ox 98% on room air. WBC 7.8, hemoglobin 0.9, platelet count 277. Electrolytes and renal function came back normal. Blood sugar 162. Liver function tests were normal. Lipase and amylase normal. Gallbladder ultrasound revealed cholecystitis. Hepatomegaly. There is cholelithiasis. CAT scan of the abdomen and pelvis with contrast reveals small bowel feces sign, focally dilated small bowel could be related to prior surgery rather than developing obstruction. There may be underlying ileus rather than small bowel obstruction. Correlate for cholecystitis, there is cholelithiasis. Ascites. Hepatomegaly. 04/20: Patient is seen this morning with active nausea vomiting and abdominal distention. Patient convinced to have NG tube placed. Abdominal x-ray ordered Nursing has given her pain medication will place NG tube shortly. Patient required Jewell catheter placement and this morning for urinary retention. Patient denies having any fever or chills. She has been afebrile, heart rate 71, blood pressure 149/72, pulse ox 95% on room air. Repeat lab work reveals WBC 4.3, hemoglobin 10.7, platelet count 239. Electrolytes normal. BUN 23 and creatinine 1.02. Blood sugar 134. Urinalysis clear with nitrate and l eukoesterase negative. REVIEW OF SYSTEMS Constitutional: No fever, no chills, no night sweats. No weight change. Reports weakness, reports fatigue Reports lethargy. No daytime sleepiness. EENT: No headache. No blurred vision or double vision, no loss of vision. No loss of Hearing, no ringing in the ears, no dizziness. No nasal drainage or congestion. No epistaxis. No sore throat. Lungs: No shortness of breath, cough, no sputum production. No wheezing. Cardiovascular: No chest pain, no lower extremity edema. No palpitations. No paroxysmal nocturnal dyspnea. No orthopnea. No lightheadedness or dizziness. No syncopal episodes. Abdominal: Reports abdominal pain. Reports nausea, reports vomiting. . No constipation. No bloody or tarry stools reports loss of appetite. Genitourinary: No dysuria, increased frequency, urgency. No urinary retention. Musculoskeletal: Reports myalgias. Reports muscle weakness, Reports gait dysfunction, no frequent falls. No back pain. No neck pain. Integumentary: No wounds, no lesions. No rash or pruritus. No unusual bruising. Neurologic: No aphasia. No facial droop. No change in mentation. No head injury. No headache. No paralysis. No paresthesia. Psychiatric: No depression. No anxiety. No mood swings. Endocrine: No abnormal blood sugars. PHYSICAL EXAMINATION Gen: This is an 80-year-old female. Patient is resting in bed. She is slightly confused. HEENT: Head is atraumatic, normocephalic. Pupils equal, round. Sclerae is anicteric. NECK: Supple. No JVD. No lymphadenopathy. No thyromegaly. LUNGS: Clear to auscultation. No wheezes or rhonchi. No intercostal retractions. HEART: Irregular rate and rhythm. No murmur. ABDOMEN: Soft. Bowel sounds are present. No masses. Mild generalized tenderness. EXTREMITIES: No pedal edema. No calf tenderness. Dorsalis pedis palpable bilaterally. NEUROLOGICAL: Patient is awake, alert and oriented to person and place. Cranial nerves 2 through 12 are grossly intact. Generalized weakness noted. ASSESSMENT AND PLAN 1. Acute small bowel obstruction. Patient made nothing by mouth and requires NG tube. Consult with Dr. Urena/Carmela. Zofran 4 mg IV push every 6 hours as needed for nausea as well as scopolamine patch. Continue IV fluids 0.9 normal saline at 125 mL per hour. Dilaudid 1 mg every 3 hours for pain. 2. 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 Consult general surgery. 3. Bladder cancer status post chemotherapy. Consult with Dr. Rondon. 4. History of breast cancer status post bilateral mastectomy, stable. Hold anastrozole. 5. Hypertension. Norvasc 10 mg daily, prazosin 2 mg daily and Lasix 20 mg daily on hold. 6. Hyperlipidemia. Hold Lipitor. 7. Paroxysmal atrial fibrillation. Hold Toprol-XL 100 mg daily and eliquis 5 mg twice daily. 8. Recurrent depression. Hold Lexapro 10 mg daily. 9. Alzheimer's dementia. Hold galantamine ER 16 mg daily and Namenda 10 mg twice daily. 10. Gastroesophageal reflux disease and GI prophylaxis. Continue Protonix 40 mg IV daily. 11. Restless leg syndrome. Hold Requip 0.5 mg twice daily. 12. DVT prophylaxis. DISCHARGE PLAN TBD. Likely return home. PT and OT consults added. Impression and plan of care have been directed as dictated by the signing physician. Mayi Lindsay nurse practitioner acting as scribe for signing physician. Objective - Vital Signs Vital signs: Vital Signs Temp 97.8 F 04/20/21 05:00 Pulse 71 04/20/21 05:00 Resp 18 04/20/21 05:00 BP 149/72 04/20/21 05:00 Pulse Ox 95 04/20/21 05:00 Intake & Output 04/19/21 04/20/21 04/20/21 18:59 06:59 18:59 Intake Total 1830 Balance 1830 Weight 117.934 kg Intake: Intake, IV Titration 1830 Amount Piperacillin-Tazobactam 3 100 .375 gm In Sodium Chloride 0.9% 100 ml @ 200 mls/hr IVPB ONCE [facility] Rx#:[id number] Piperacillin-Tazobactam 3 100 .375 gm In Sodium Chloride 0.9% 100 ml @ 25 mls/hr IVPB Q8H [facility] Rx#: [id number] Sodium Chloride 0.9% 1, 1500 000 ml @ 125 mls/hr IV . Q8H [facility] Rx#:[id number] Sodium Chloride 0.9% 1, 130 000 ml @ 130 mls/hr IV . Q7H42M [facility] Rx#:[id number] Other: Voiding Method Diaper - Labs CBC & Chem 7: 04/20/21 04:54 04/20/21 04:54 Labs: Abnormal Lab Results - Last 24 Hours (Table) 04/19/21 04/19/21 04/20/21 Range/Units 07:59 08:20 04:54 RBC 3.49 L 3.27 L (3.80-5.40) m/uL Hgb 10.7 L (11.4-16.0) gm/dL Hct 33.7 L 33.0 L (34.0-46.0) % MCV 100.9 H (80.0-100.0) fL Lymphocytes # 0.7 L 0.8 L (1.0-4.8) k/uL BUN (7-17) mg/dL Glucose 162 H (74-99) mg/dL 04/20/21 Range/Units 04:54 RBC (3.80-5.40) m/uL Hgb (11.4-16.0) gm/dL Hct (34.0-46.0) % MCV (80.0-100.0) fL Lymphocytes # (1.0-4.8) k/uL BUN 23 H (7-17) mg/dL Glucose 134 H (74-99) mg/dL
[2021-04-20 14:49] VITALS: BMI 39.5
[2021-04-21] MEDS: HYDROmorphone 1 MG/ML 1 ML SYRINGE IVP PRN (00:07)
[2021-04-21] MEDS: SODIUM CHLORIDE 0.9% 1,000 ML IV SCH ×4 (04:13→19:40)
[2021-04-21] MEDS: PIPERACILLIN-TAZOBACTAM 3.375 GM in SODIUM CHLORIDE 0.9% 100 ML IVPB SCH ×3 (05:20→19:40)
[2021-04-21] MEDS: PANTOPRAZOLE 40 MG/10 ML VIAL IV SCH (09:03)
--- NOTE | 2021-04-21 12:18 | P.CRDCN ---
History of Present Illness History of present illness: HISTORY OF PRESENTING ILLNESS This is a pleasant 80-year-old female past medical history significant for paroxysmal atrial fibrillation on eliquis, hypertension, dyslipidemia, mild non-obstructive CAD, breast cancer s/p mastectomy and active bladder cancer with recent chemotherapy. She does not follow regularly in the office with a profile grinder. We have been asked to see in consultation for pre-operative evaluation. She is 3 weeks post chemotherapy and radiation for bladder cancer. She started experiencing abdominal pain, nausea and vomiting. She has been evaluated by surgery and is currently being treated for a small bowel obstruction, acute cholecystitis and pending possible open cholecystectomy. She is seen and examined resting comfortably laying flat in bed in no acute distress. She is comfortable. She has no chest pain, shortness of breath, dizziness or palpitations. She is maintaining SR. DIAGNOSTICS EKG reveals sinus mechanism with incomplete right bundle branch block and T-wave inversion inferiorly and anteriorly. Laboratory reviewed, WBC 4.3, hgb 10.7, plt 239, sodium 142, potassium 4.0 and creatinine 1.02. Current cardiac medications include amlodipine 10 mg daily, toprol 100 mg daily, lasix 20 mg daily, atorvastatin 10 mg daily and eliquis 5 mg BID. Cardiac catheterization obtained 2018 revealed left main with no disease, LAD, no disease, circumflex with 20% plaque proximally and RCA with no disease. Most recent echocardiogram obtained 2018 reveals preserved LV systolic function with EF 55-60%, mild MR, moderate TR and moderate pulmonary hypertension with RVSP 60 mmHg. REVIEW OF SYSTEMS At the time of my exam: CONSTITUTIONAL: Denies fever or chills. CARDIOVASCULAR: Denies chest pain, shortness of breath, orthopnea, PND or palpitations. RESPIRATORY: Denies cough. GASTROINTESTINAL: Denies abdominal pain, diarrhea, constipation, nausea or vomiting. MUSCULOSKELETAL: Denies myalgias. NEUROLOGIC: Denies numbness, tingling, headacbe or weakness. ENDOCRINE: Denies fatigue, weight change, polydipsia or polyurina. GENITOURINARY: Denies burning, hematuria or urgency with micturation. HEMATOLOGIC: Denies history of anemia or bleeding. PHYSICAL EXAMINATION Blood pressure 149/72 heart rate 71 afebrile and maintaining oxygen saturation on room air. CONSTITUTIONAL: No apparent distress. HEENT: Head is normocephalic. Pupils are equal, round. Sclerae anicteric. Mucous membranes of the mouth are moist. No JVD. No carotid bruit. NG tube in place. CHEST EXAMINATION: Lungs are clear to auscultation. No chest wall tenderness is noted on palpation or with deep breathing. HEART EXAMINATION: Regular rate and rhythm. S1, S2 heard. Systolic ejection murmur at the apex, no gallops or rub. ABDOMEN: Soft, nontender. Positive bowel sounds. EXTREMITIES: 2+ peripheral pulses, no lower extremity edema and no calf tenderness. NEUROLOGIC EXAMINATION: Patient is awake, alert and oriented x3. ASSESSMENT Small bowel obstruction Cholecystitis Paroxysmal atrial fibrillation on eliquis, currently in SR Hypertension Dyslipidemia Pulmonary hypertension Bladder cancer s/p chemotherapy and radiation Breast cancer s/p mastectomy PLAN No chest pain, not in active heart failure and able to lay flat without a problem. Cautious fluid administration intra-operatively. Optimal blood pressure control. She is intermediate risk from a cardiac perspective with no acute contraindications to undergo surgical intervention. Echo has been obtained and will be reviewed. Thank you kindly for this consultation. Nurse Practitioner note has been reviewed, I agree with a documented findings and plan of care. Patient was seen and examined. 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 Mild memory changes. upper denture, lower dental implants. perineal/pelvic pain, freq uti, currently resistant to outpatient AB Rx. History of Any Multi-Drug Resistant Organisms: MRSA, Other MDRO Date of last positivie culture/infection: 06/21/18 MDRO Source:: MRSA CHEST Past Surgical History: Bowel Resection, Breast Surgery, Heart Catheterization, Orthopedic Surgery, Tubal Ligation Additional Past Surgical History / Comment(s): R rotator cuff repair. Bilateral mastectomy 09/22, had failed reconstruction. May 2018 had excision rt and lt reconstructred breast/chest wall deformities. bowel resection 10/2016, heart cath 12/13/17, tiff cataracts, lower dental implants. Past Anesthesia/Blood Transfusion Reactions: Previous Problems w/ Anesthesia, Postoperative Nausea & Vomiting (PONV) Additional Past Anesthesia/Blood Transfusion Reaction / Comment(s): PATIENT STATES HER TEETH IMPLANTS WERE DISLODGED DURING INTUBATION AND SHE SWALLOWED A TOOTH 2016. pt stated she has recieved blood transfusion in past, no reaction to it. Past Psychological History: No Psychological Hx Reported Additional Psychological History / Comment(s): pt lives alone in 2 story home that has 1 porch step. daughter lives 6 miles from pt. Smoking Status: Former smoker Past Alcohol Use History: None Reported Additional Past Alcohol Use History / Comment(s): started smoking 1967, smoked 1/2 ppd, quit in 1984. Past Drug Use History: None Reported - Past Family History Mother Family Medical History: Myocardial Infarction ([place]) Additional Family Medical History / Comment(s): in her 80's Father Family Medical History: Myocardial Infarction ([place]) Additional Family Medical History / Comment(s): age 56 from [place] Brother(s) Family Medical History: Cancer Additional Family Medical History / Comment(s): Brain cancer Medications and Allergies Home Medications Medication Instructions Recorded Confirmed Type Apixaban [Eliquis] 5 mg PO BID 11/24/16 04/19/21 History Escitalopram [Lexapro] 10 mg PO DAILY 01/12/17 04/19/21 History Metoprolol Succinate (ER) [Toprol 100 mg PO DAILY 12/14/17 04/19/21 History XL] Atorvastatin Calcium [Lipitor] 10 mg PO HS 03/19/18 04/19/21 History Furosemide [Lasix] 20 mg PO DAILY 03/19/18 04/19/21 History Memantine [Namenda] 10 mg PO BID 11/28/19 04/19/21 History rOPINIRole HCL [Requip] 0.5 mg PO BID 11/28/19 04/19/21 History Anastrozole 1 mg PO DAILY 09/09/20 04/19/21 History Ondansetron [Zofran] 4 mg PO TID PRN 09/09/20 04/19/21 History Famotidine [Pepcid] 20 mg PO DAILY tab 09/11/20 04/19/21 Rx Diphenoxylate HCl/Atropine 1 - 2 tab PO TID PRN 01/25/21 04/19/21 History [Lomotil 2.5-0.025 mg Tablet] Galantamine HBr [Galantamine ER] 16 mg PO DAILY 01/25/21 04/19/21 History Prazosin HCl 2 mg PO DAILY 01/25/21 04/19/21 History Dicyclomine [Bentyl] 10 mg PO TID PRN #90 cap 02/01/21 04/19/21 Rx Omeprazole [PriLOSEC] 20 mg PO DAILY 02/16/21 04/19/21 History amLODIPine [Norvasc] 10 mg PO DAILY #30 tab 02/21/21 04/19/21 Rx Acetaminophen Tab [Tylenol] 650 mg PO Q4H PRN 04/19/21 04/19/21 History Loperamide [Imodium] 2 mg PO TID PRN 04/19/21 04/19/21 History Allergies Allergy/AdvReac Type Severity Reaction Status Date / Time codeine AdvReac Reaction Verified 04/19/21 09:52 to Tylenol #3 Physical Exam Vitals: Vital Signs Temp Pulse Resp BP Pulse Ox 04/21/21 08:00 65 16 04/21/21 02:00 98.1 F 65 16 119/72 96 04/20/21 19:45 97.6 F 67 16 136/77 96 04/20/21 12:18 97.7 F 61 18 117/74 91 L Intake and Output 04/20/21 04/21/21 04/21/21 22:59 06:59 14:59 Intake Total 1500 1500 Output Total 600 Balance 1500 900 Intake: Intake, IV Titration 1500 1500 Amount Piperacillin-Tazobactam 3 100 .375 gm In Sodium Chloride 0.9% 100 ml @ 25 mls/hr IVPB Q8H [facility] Rx#: [id number] Sodium Chloride 0.9% 1, 1500 1400 000 ml @ 125 mls/hr IV . Q8H [facility] Rx#:[id number] Oral 0 Output: Gastric Drainage 0 Urine 600 Uretheral (Jewell) 600 Other: Voiding Method Indwelling Catheter Indwelling Catheter Results 04/20/21 04:54 04/20/21 04:54 Current Medications Generic Name Dose Route Start Last Admin Trade Name Freq PRN Reason Stop Dose Admin Benzocaine 1 spray 04/20/21 09:36 04/20/21 20:25 Benzocaine [place] 1 Can MUCOUS MEM 1 spray QID PRN Administration Mouth Irritation Protocol Hydromorphone HCl 1 mg 04/19/21 10:38 04/20/21 05:17 Hydromorphone 1 Mg/Ml 1 Ml Syringe IVP 1 mg Q6HR PRN Administration Pain Hydromorphone HCl 0.5 mg 04/19/21 10:38 04/20/21 02:07 Hydromorphone 0.5 Mg/0.5 Ml Syringe IVP 0.5 mg Q3HR PRN Administration Moderate Pain Hydromorphone HCl 1 mg 04/19/21 10:38 04/21/21 00:07 Hydromorphone 1 Mg/Ml 1 Ml Syringe IVP 1 mg Q3HR PRN Administration Severe Pain Sodium Chloride 1,000 mls @ 125 mls/hr 04/19/21 10:45 04/21/21 11:25 Saline 0.9% IV 125 mls/hr .Q8H [facility] Administration Piperacillin Sod/Tazobactam 100 mls @ 25 mls/hr 04/19/21 20:00 04/21/21 11:28 Sod 3.375 gm/ Sodium Chloride IVPB 25 mls/hr Q8H [facility] Administration Naloxone HCl 0.2 mg 04/19/21 10:38 Naloxone 0.4 Mg/Ml 1 Ml Vial IV Q2M PRN Opioid Reversal Ondansetron HCl 4 mg 04/19/21 10:33 04/20/21 02:43 Ondansetron 4 Mg/2 Ml Vial IVP 4 mg Q6HR PRN Administration Nausea And Vomiting Pantoprazole Sodium 40 mg 04/20/21 09:00 04/21/21 09:03 Pantoprazole 40 Mg/10 Ml Vial IV 40 mg DAILY [facility] Administration Intake and Output 04/20/21 04/21/21 04/21/21 22:59 06:59 14:59 Intake Total 1500 1500 Output Total 600 Balance 1500 900 Intake: Intake, IV Titration 1500 1500 Amount Piperacillin-Tazobactam 3 100 .375 gm In Sodium Chloride 0.9% 100 ml @ 25 mls/hr IVPB Q8H [facility] Rx#: [id number] Sodium Chloride 0.9% 1, 1500 1400 000 ml @ 125 mls/hr IV . Q8H [facility] Rx#:[id number] Oral 0 Output: Gastric Drainage 0 Urine 600 Uretheral (Jewell) 600 Other: Voiding Method Indwelling Catheter Indwelling Catheter 04/20/21 04:54 04/20/21 04:54
--- NOTE | 2021-04-21 13:35 | P.PN ---
Subjective Progress Note Date: 04/21/21 HISTORY OF PRESENT ILLNESS This is an 80-year-old female patient of Dr. 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 Patient had a recent hospitalization which time she was treated for infectious colitis, acute kidney injury, neutropenic sepsis, Klebsiella pneumoniae bacteremia, pancytopenia and was discharged home. Patient presented to [facility] emergency center with complaints of vomiting that started yesterday and abdominal bloating. She de nies any diarrhea. She states she last received chemotherapy and radiation therapy 3-4 weeks ago. Patient is currently nauseated and retching. She was found to be afebrile, heart rate 64, blood pressure 117/58, pulse ox 98% on room air. WBC 7.8, hemoglobin 0.9, platelet count 277. Electrolytes and renal function came back normal. Blood sugar 162. Liver function tests were normal. Lipase and amylase normal. Gallbladder ultrasound revealed cholecystitis. Hepatomegaly. There is cholelithiasis. CAT scan of the abdomen and pelvis with contrast reveals small bowel feces sign, focally dilated small bowel could be related to prior surgery rather than developing obstruction. There may be underlying ileus rather than small bowel obstruction. Correlate for cholecystitis, there is cholelithiasis. Ascites. Hepatomegaly. 04/20: Patient is seen this morning with active nausea vomiting and abdominal distention. Patient convinced to have NG tube placed. Abdominal x-ray ordered Nursing has given her pain medication will place NG tube shortly. Patient required Jewell catheter placement and this morning for urinary retention. Patient denies having any fever or chills. She has been afebrile, heart rate 71, blood pressure 149/72, pulse ox 95% on room air. Repeat lab work reveals WBC 4.3, hemoglobin 10.7, platelet count 239. Electrolytes normal. BUN 23 and creatinine 1.02. Blood sugar 134. Urinalysis clear with nitrate and l eukoesterase negative. 04/21: Patient has been seen by Dr. Casey with plan for cholecystectomy possible open due to previous surgeries. Dr. Casey is requesting clearance from cardiology and cardiology consult added. Patient's abdominal distention is significantly improved, vomiting and and nausea improved. She does have tenderness to the right upper quadrant. Patient has been afebrile, heart rate 65, blood pressure 119/72, pulse ox 96% on room air. REVIEW OF SYSTEMS Constitutional: No fever, no chills, no night sweats. No weight change. Reports weakness, reports fatigue Reports lethargy. No daytime sleepiness. EENT: No headache. No blurred vision or double vision, no loss of vision. No loss of Hearing, no ringing in the ears, no dizziness. No nasal drainage or congestion. No epistaxis. No sore throat. Lungs: No shortness of breath, cough, no sputum production. No wheezing. Cardiovascular: No chest pain, no lower extremity edema. No palpitations. No paroxysmal nocturnal dyspnea. No orthopnea. No lightheadedness or dizziness. No syncopal episodes. Abdominal: Reports abdominal pain. Abdominal bloating improved Reports nausea, reports vomiting, improved . No constipation. No bloody or tarry stools reports loss of appetite. Genitourinary: No dysuria, increased frequency, urgency. No urinary retention. Musculoskeletal: Reports myalgias. Reports muscle weakness, Reports gait dysfunction, no frequent falls. No back pain. No neck pain. Integumentary: No wounds, no lesions. No rash or pruritus. No unusual bruising. Neurologic: No aphasia. No facial droop. No change in mentation. No head injury. No headache. No paralysis. No paresthesia. Psychiatric: No depression. No anxiety. No mood swings. Endocrine: No abnormal blood sugars. PHYSICAL EXAMINATION Gen: This is an 80-year-old female. Patient is resting in bed. She is slightly confused. HEENT: Head is atraumatic, normocephalic. Pupils equal, round. Sclerae is anicteric. NECK: Supple. No JVD. No lymphadenopathy. No thyromegaly. LUNGS: Clear to auscultation. No wheezes or rhonchi. No intercostal retractions. HEART: Irregular rate and rhythm. Systolic murmur at the fourth intercostal space left sternal border. ABDOMEN: Soft. Bowel sounds are present. No masses. Mild right upper quadrant tenderness. EXTREMITIES: No pedal edema. No calf tenderness. Dorsalis pedis palpable bilaterally. NEUROLOGICAL: Patient is awake, alert and oriented to person and place. Cranial nerves 2 through 12 are grossly intact. Generalized weakness noted. ASSESSMENT AND PLAN 1. Acute small bowel obstruction possibly related to acute cholecystitis. Patient made nothing by mouth and requires NG tube. Consult with Dr. Casey appreciated. Zofran 4 mg IV push every 6 hours as needed for nausea as well as scopolamine patch. Continue IV fluids 0.9 normal saline at 125 mL per hour. Dilaudid 1 mg every [address] Casey is planning for cholecystectomy. Cardiology consult consult added for surgical clearance 2. 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 Consult general surgery. 3. Bladder cancer status post chemotherapy. Consult with Dr. Rondon. 4. History of breast cancer status post bilateral mastectomy, stable. Hold anastrozole. 5. Hypertension. Norvasc 10 mg daily, prazosin 2 mg daily and Lasix 20 mg daily on hold. 6. Hyperlipidemia. Hold Lipitor. 7. Paroxysmal atrial fibrillation. Hold Toprol-XL 100 mg daily and eliquis 5 mg twice daily. 8. Recurrent depression. Hold Lexapro 10 mg daily. 9. Alzheimer's dementia. Hold galantamine ER 16 mg daily and Namenda 10 mg twice daily. 10. Gastroesophageal reflux disease and GI prophylaxis. Continue Protonix 40 mg IV daily. 11. Restless leg syndrome. Hold Requip 0.5 mg twice daily. 12. DVT prophylaxis. DISCHARGE PLAN TBD. Likely return home. PT and OT consults added. Impression and plan of care have been directed as dictated by the signing physician. Mayi Lindsay nurse practitioner acting as scribe for signing physician. Objective - Vital Signs Vital signs: Vital Signs Temp 98.1 F 04/21/21 02:00 Pulse 65 04/21/21 02:00 Resp 16 04/21/21 02:00 BP 119/72 04/21/21 02:00 Pulse Ox 96 04/21/21 02:00 Intake & Output 04/20/21 04/21/21 04/21/21 18:59 06:59 18:59 Intake Total 1500 1500 Output Total 700 600 Balance 800 900 Weight 117.934 kg Intake: Intake, IV Titration 1500 1500 Amount Piperacillin-Tazobactam 3 100 .375 gm In Sodium Chloride 0.9% 100 ml @ 25 mls/hr IVPB Q8H [facility] Rx#: [id number] Sodium Chloride 0.9% 1, 1500 1400 000 ml @ 125 mls/hr IV . Q8H [facility] Rx#:[id number] Oral 0 Output: Gastric Drainage 0 Urine 700 600 Uretheral (Jewell) 600 Other: Voiding Method Diaper Indwelling Catheter - Labs CBC & Chem 7: 04/20/21 04:54 04/20/21 04:54 Labs: Abnormal Lab Results - Last 24 Hours (Table) 04/20/21 Range/Units 10:57 Ur Specific [place] >1.050 H (1.001-1.035) Urine Protein Trace H (Negative) Urine Blood Trace H (Negative) Urine Mucus Rare H (None) /hpf
--- NOTE | 2021-04-21 15:27 | P.PN ---
Subjective Progress Note Date: 04/21/21 Principal diagnosis: Cholecystitis and Ileus She is confused a little today, no acute event Objective - Vital Signs Vital signs: Vital Signs Temp 97.8 F 04/21/21 12:26 Pulse 62 04/21/21 12:26 Resp 17 04/21/21 12:26 BP 117/53 04/21/21 12:26 Pulse Ox 96 04/21/21 12:26 Intake & Output 04/20/21 04/21/21 04/21/21 18:59 06:59 18:59 Intake Total 1500 1500 Output Total 700 600 Balance 800 900 Weight 117.934 kg Intake: Intake, IV Titration 1500 1500 Amount Piperacillin-Tazobactam 3 100 .375 gm In Sodium Chloride 0.9% 100 ml @ 25 mls/hr IVPB Q8H [facility] Rx#: [id number] Sodium Chloride 0.9% 1, 1500 1400 000 ml @ 125 mls/hr IV . Q8H [facility] Rx#:[id number] Oral 0 Output: Gastric Drainage 0 Urine 700 600 Uretheral (Jewell) 600 Other: Voiding Method Diaper Indwelling Catheter Indwelling Catheter - Exam - Constitutional General appearance: Present: no acute distress, Alopecia chemo induced - EENT Eyes: Present: EOMI ENT: Present: hearing grossly normal, normal oropharynx NG tube to LIS - Neck Thyroid: bilateral: normal size - Respiratory Respiratory: bilateral: CTA - Cardiovascular Rhythm: regular Heart sounds: normal: S1, S2 - Gastrointestinal General gastrointestinal: distended, tender - Integumentary Integumentary: Present: normal - Neurologic Neurologic: Present: CNII-XII intact - Musculoskeletal Musculoskeletal: Present: generalized weakness, strength equal bilaterally - Psychiatric Psychiatric: Present: COnfused today, but easily reorientedA&O x's 3, appropriate affect - Labs CBC & Chem 7: 04/20/21 04:54 04/20/21 04:54 Assessment and Plan (1) Ileus Current Visit: Yes Status: Acute Code(s): K56.7 - ILEUS, UNSPECIFIED SNOMED Code(s): 456745349 (2) Bladder cancer Current Visit: No Status: Chronic Priority: Medium Code(s): C67.9 - MALIGNANT NEOPLASM OF BLADDER, UNSPECIFIED SNOMED Code(s): 449380484 Plan: Gen surgery following CHolelithiasis, ileus. Currently NPO NG tube LIS Ileus likely secondary to Cholecystitis, General surgery regarding intervention. Discussed with primary team and patient PLan is open intervention with Dr. Casey on 04/22
--- NOTE | 2021-04-21 17:28 | P.PN ---
Subjective Progress Note Date: 04/21/21 Patient seen and examined at bedside. Pleasantly confused. Denies any significant abdominal pain. However, on exam there is tenderness to the right upper quadrant. Objective - Vital Signs Vital signs: Vital Signs Temp 97.8 F 04/21/21 12:26 Pulse 62 04/21/21 12:26 Resp 17 04/21/21 12:26 BP 117/53 04/21/21 12:26 Pulse Ox 96 04/21/21 12:26 Intake & Output 04/20/21 04/21/21 04/21/21 18:59 06:59 18:59 Intake Total 1500 1500 Output Total 700 600 Balance 800 900 Weight 117.934 kg Intake: Intake, IV Titration 1500 1500 Amount Piperacillin-Tazobactam 3 100 .375 gm In Sodium Chloride 0.9% 100 ml @ 25 mls/hr IVPB Q8H [facility] Rx#: [id number] Sodium Chloride 0.9% 1, 1500 1400 000 ml @ 125 mls/hr IV . Q8H [facility] Rx#:[id number] Oral 0 Output: Gastric Drainage 0 Urine 700 600 Uretheral (Jewell) 600 Other: Voiding Method Diaper Indwelling Catheter Indwelling Catheter - Constitutional General appearance: Present: cooperative - Gastrointestinal Gastrointestinal Comment(s): Soft, tender to palpation in right upper quadrant, nondistended, no rebound, no guarding - Musculoskeletal Musculoskeletal: Present: generalized weakness - Labs CBC & Chem 7: 04/20/21 04:54 04/20/21 04:54 Assessment and Plan Plan: 80-year-old female with cholecystitis and ileus secondary to cholecystitis. Case was discussed in depth with the patient's daughter, Mayi. Patient has been evaluated by cardiology and is intermediate risk for surgery. With discussion with the patient's daughter, patient's daughter is aware that patient is high risk for open procedure and this can lead to prolonged recovery based on patient's recent history of chemotherapy and radiation. According to the daughter, patient did undergo significant amount of physical strain while receiving chemotherapy. The patient and the patient's daughter would like to move forward with surgical intervention, as their goal is recovery. The risks and benefits were discussed in depth with the patient and the patient's gifty r. We will plan for surgical intervention tomorrow afternoon. Case will be boarded as a laparoscopic cholecystectomy with a possible open procedure. Patient and patient's daughter are well aware that there is high likelihood of requiring an open procedure.
--- NOTE | 2021-04-21 19:39 | ECHOF ---
Referral Reason:LVF MEASUREMENTS -------- HEIGHT: 172.7 cm WEIGHT: 117.9 kg BP: 119/72 IVSd: 1.3 cm (0.6 - 1.1) LVIDd: 4.6 cm (3.9 - 5.3) LVPWd: 1.3 cm (0.6 - 1.1) EDV(Teich): 97 ml IVSs: 1.8 cm LVIDs: 3.1 cm LVPWs: 1.7 cm %IVS Thck: 37 % ESV(Teich): 37 ml EF(Teich): 62 % %FS: 33 % SV(Teich): 60 ml LA Diam: 4.5 cm (2.7 - 3.8) RVIDd: 3.4 cm (< 3.3) Ao Diam: 2.8 cm (2.0 - 3.7) AV Cusp: 1.4 cm (1.5 - 2.6) EPSS: 1.2 cm MV E Konrad: 1.25 m/s MV DecT: 222 ms MV Dec Branch: 5.6 m/s MV A Konrad: 0.83 m/s MV E/A Ratio: 1.50 MV PHT: 64 ms MV Vmax: 1.79 m/s MV Vmean: 0.86 m/s MV maxP.83 mmHg MV meanP.47 mmHg MV VTI: 50.5 cm AV Vmax: 1.72 m/s AV maxP.78 mmHg AV Vmax: 1.74 m/s AV Vmean: 1.05 m/s AV maxP.13 mmHg AV meanP.19 mmHg AV Env.Ti: 406 ms AV VTI: 42.7 cm AR Vmax: 2.60 m/s AR maxP.01 mmHg AR PHT: 708 ms AR Dec Time: 2442 ms AR Dec Branch: 1.1 m/s TR Vmax: 3.65 m/s TR maxP.43 mmHg RAP: 5.00 mmHg RVSP: 58.43 mmHg MV EF SLOPE: 20.18 mm/s (70 - 150) MV EXCURSION: 11.11 mm (> 18.000) FINDINGS -------- Sinus rhythm. This was a technically adequate study. The left ventricular size is normal. There is mild concentric left ventricular hypertrophy. Overa ll left ventricular systolic function is normal with, an EF between 60 - 65 %. The right ventricle is mildly enlarged. The left atrium is moderately dilated. The right atrium is normal in size. Interatrial and interventricular septum intact. There is mild aortic valve sclerosis. Trace to mild aortic regurgitation. The mitral valve leaflets are mildly thickened. Mild mitral annular calcification present. Mild m itral regurgitation is present. The peak and mean MV gradients are 12.83mmHg 3.47mmHg as measured by doppler. Mild tricuspid regurgitation present. There is moderate to severe pulmonary hypertension. The rig ht ventricular systolic pressure, as measured by Doppler, is 58.43mmHg. Trace/mild (physiologic) pulmonic regurgitation. The aortic root size is normal. Normal inferior vena cava with normal inspiratory collapse consistent with estimated right atrial pre ssure of 5 mmHg. There is no pericardial effusion. CONCLUSIONS -------- 1. The left ventricular size is normal. 2. There is mild concentric left ventricular hypertrophy. 3. Overall left ventricular systolic function is normal with, an EF between 60 - 65 %. 4. The right ventricle is mildly enlarged. 5. The left atrium is moderately dilated. 6. There is mild aortic valve sclerosis. 7. Trace to mild aortic regurgitation. 8. The mitral valve leaflets are mildly thickened. 9. Mild mitral annular calcification present. 10. Mild mitral regurgitation is present. 11. The peak and mean MV gradients are 12.83mmHg 3.47mmHg as measured by doppler. 12. Mild tricuspid regurgitation present. 13. There is moderate to severe pulmonary hypertension. 14. The right ventricular systolic pressure, as measured by Doppler, is 58.43mmHg. 15. Trace/mild (physiologic) pulmonic regurgitation. 16. There is no pericardial effusion. TELEPHONE CLERK: Joselin Funk, ALLISONCS
[2021-04-22] MEDS: SODIUM CHLORIDE 0.9% 1,000 ML IV SCH ×2 (03:22→17:38)
[2021-04-22] MEDS: PIPERACILLIN-TAZOBACTAM 3.375 GM in SODIUM CHLORIDE 0.9% 100 ML IVPB SCH ×3 (03:22→20:45)
[2021-04-22 06:01] LABS: Basophils % (A) 1 %; Eosinophils # (A) 0.1 k/uL (0-0.7); Eosinophils % (A) 2 %; HCT 26.1 % (34.0-46.0); Lymphocytes # (A) 0.6 k/uL (1.0-4.8); Lymphocytes % (A) 16 %; MCH 33.8 pg (25.0-35.0); MCHC 34.1 g/dL (31.0-37.0); Mean Platelet Volume 7.4; Monocytes # (A) 0.2 k/uL (0-1.0); Monocytes % (A) 7 %; Neutrophils # (A) 2.7 k/uL (1.3-7.7); Neutrophils % (A) 73 %; Platelet Count 172 k/uL (150-450); RBC 2.63 m/uL (3.80-5.40); RDW 14.4 % (11.5-15.5); WBC 3.6 k/uL (3.8-10.6)
[2021-04-22 06:03] LABS: HGB 8.9 gm/dL (11.4-16.0)
[2021-04-22] MEDS: PANTOPRAZOLE 40 MG/10 ML VIAL IV SCH (07:54)
[2021-04-22 09:33] LABS: INR 1.02 (0.90-1.11); Prothrombin Time 11.1 sec (9.9-11.9)
[2021-04-22 09:37] LABS: African American GFR (CKD) 94.2 (60.0-200.0); Albumin 3.2 g/dL (3.80-4.90); Albumin/Globulin Ratio 1.45 (1.60-3.17); Anion Gap 7.8 mmol/L (4.00-12.00); BUN/Creat Ratio 14.29 Ratio (12.00-20.00); Calcium 8.1 mg/dL (8.7-10.3); Carbon Dioxide 23.2 mmol/L (21.6-31.8); Globulin 2.2 g/dL (1.6-3.3); Magnesium 1.7 mg/dL (1.5-2.4); Non-African American GFR(CKD) 81.3 (60.0-200.0); Potassium 3.4 mmol/L (3.5-5.5); Total Bilirubin 0.4 mg/dL (0.2-1.2); Total Protein 5.4 g/dL (6.2-8.2)
--- NOTE | 2021-04-22 09:54 | P.PN ---
Subjective Progress Note Date: 04/22/21 Principal diagnosis: Cholecystitis and Ileus OPen Intervention with surgery today Objective - Vital Signs Vital signs: Vital Signs Temp 97.8 F 04/22/21 04:58 Pulse 65 04/22/21 04:58 Resp 16 04/22/21 04:58 BP 135/75 04/22/21 04:58 Pulse Ox 94 L 04/22/21 04:58 Intake & Output 04/21/21 04/22/21 04/22/21 18:59 06:59 18:59 Intake Total 1820 Output Total 800 810 Balance -800 1010 Intake: Intake, IV Titration 1700 Amount Piperacillin-Tazobactam 3 200 .375 gm In Sodium Chloride 0.9% 100 ml @ 25 mls/hr IVPB Q8H [facility] Rx#: [id number] Sodium Chloride 0.9% 1, 1500 000 ml @ 125 mls/hr IV . Q8H [facility] Rx#:[id number] Oral 120 Output: Gastric Drainage 10 Urine 800 800 Other: Voiding Method Indwelling Catheter Indwelling Catheter - Exam - Constitutional General appearance: Present: no acute distress, Alopecia chemo induced - EENT Eyes: Present: EOMI ENT: Present: hearing grossly normal, normal oropharynx NG tube to LIS - Neck Thyroid: bilateral: normal size - Respiratory Respiratory: bilateral: CTA - Cardiovascular Rhythm: regular Heart sounds: normal: S1, S2 - Gastrointestinal General gastrointestinal: distended, tender - Integumentary Integumentary: Present: normal - Neurologic Neurologic: Present: CNII-XII intact - Musculoskeletal Musculoskeletal: Present: generalized weakness, strength equal bilaterally - Psychiatric Psychiatric: Present: COnfused today, but easily reorientedA&O x's 3, appropriate affect - Labs CBC & Chem 7: 04/22/21 05:02 04/22/21 05:02 Labs: Abnormal Lab Results - Last 24 Hours (Table) 04/22/21 04/22/21 Range/Units 05:02 05:02 WBC 3.6 L (3.8-10.6) k/uL RBC 2.63 L (3.80-5.40) m/uL Hgb 8.9 L D (11.4-16.0) gm/dL Hct 26.1 L (34.0-46.0) % Lymphocytes # 0.6 L (1.0-4.8) k/uL Potassium 3.4 L (3.5-5.5) mmol/L Chloride 112 H (96-109) mmol/L Calcium 8.1 L (8.7-10.3) mg/dL Total Protein 5.4 L (6.2-8.2) g/dL Albumin 3.20 L (3.80-4.90) g/dL Albumin/Globulin Ratio 1.45 L (1.60-3.17) g/dL Assessment and Plan (1) Ileus Current Visit: Yes Status: Acute Code(s): K56.7 - ILEUS, UNSPECIFIED SNOMED Code(s): 221058647 (2) Bladder cancer Current Visit: No Status: Chronic Priority: Medium Code(s): C67.9 - MALIGNANT NEOPLASM OF BLADDER, UNSPECIFIED SNOMED Code(s): 923698115 Plan: Gen surgery following CHolelithiasis, ileus. Currently NPO NG tube LIS Ileus likely secondary to Cholecystitis, General surgery regarding intervention. Discussed with primary team and patient PLan is open intervention with Dr. Casey on 04/22
[2021-04-22] MEDS ORDERED: POTASSIUM CHLORIDE 20 MEQ in WATER FOR INJECTION 1 100ML.BAG IVPB STA (09:59)
[2021-04-22] MEDS ORDERED: IV FLUID CONTINUATION 1,000 ML IV ONE ×2 (14:05)
[2021-04-22] MEDS ORDERED: HEPARIN SODIUM,PORCINE/PF 5,000 UNIT/0.5 ML SYRINGE SQ ONE (14:29)
[2021-04-22] MEDS ORDERED: HYDROmorphone (PF) 1 MG/ML ONE (14:33)
[2021-04-22] MEDS ORDERED: SUCCINYLCHOLINE CHLORIDE 100 MG/5 ML SYR IV ONE (14:33)
[2021-04-22] MEDS ORDERED: GLYCOPYRROLATE 0.2 MG/ML 2 ML VIAL ONE (14:33)
[2021-04-22] MEDS ORDERED: ROCURONIUM 10 MG/ML (5 ML VIAL) IV ONE (14:33)
[2021-04-22] MEDS ORDERED: NEOSTIGMINE 1 MG/ML 10 ML VIAL ONE (14:33)
[2021-04-22] MEDS ORDERED: fentaNYL (PF) 50 MCG/ML 2 ML AMP ONE (14:33)
[2021-04-22] MEDS ORDERED: PROPOFOL 10 MG/ML 20 ML VIAL IV ONE (14:33)
[2021-04-22] MEDS ORDERED: LIDOCAINE 1% INJ 10MG/ML (20 ML MDV) ONE (14:33)
[2021-04-22] MEDS ORDERED: LACTATED RINGERS 1,000 ML IV ONE ×2 (14:34→14:37)
[2021-04-22] MEDS ORDERED: ONDANSETRON 4 MG/2 ML VIAL IVP ONE (14:35)
[2021-04-22] MEDS ORDERED: HEPARIN SODIUM,PORCINE 5,000 UNIT/ML 1 ML VIAL SQ ONE (14:35)
[2021-04-22] MEDS ORDERED: DEXAMETHASONE SOD PHOSPHATE 4 MG/ML 1 ML VIAL IV ONE (14:35)
[2021-04-22] MEDS ORDERED: BUPIVACAINE (PF) 0.25% 30 ML VIAL SQ ONE ×2 (14:58)
--- NOTE | 2021-04-22 15:48 | P.OP ---
Date of Procedure: 04/22/21 Preoperative Diagnosis: Acute cholecystitis Postoperative Diagnosis: Acute cholecystitis Procedure(s) Performed: Laparoscopic cholecystectomy Anesthesia: MAT Surgeon: Hunter Casey Pathology: other (Gallbladder and contents) Condition: stable Disposition: floor Indications for Procedure: 80-year-old female presented to the emergency department with complaints of nausea vomiting and upper abdominal pain. On workup, she was found of cholecystitis and ileus. Patient was maintained with nasogastric tube and IV antibiotics. Patient had recently undergone chemotherapy and radiation secondary to bladder cancer. Cardiac risk stratification was obtained. After long discussion with the patient and the patient's daughter, decision was made for cholecystectomy. Risks, benefits and alternatives were provided to the patient. She and daughter did provide consent prior to performing the operation. Operative Findings: Significant adhesions on the midline of the abdomen Edematous gallbladder Description of Procedure: The patient was brought to the operating suite and placed in supine position on the operating table. Sedation was provided by anesthesia patient underwent general endotracheal intubation. The patient was then prepped and draped in regular sterile fashion. An incision was made at palmers point and the abdomen was entered under direct visualization using a 5 mm trocar. Pneumoperitoneum was achieved. Laparoscope was placed and under exam, significant amount of midline adhesions were noted. Through a small defect within the adhesions, the right side of the abdomen was clearly visualized with no significant finding of adhesions on the right side of the abdomen. Under laparoscopic guidance, a 12 mm trocar was placed right of the umbilicus and 3 additional 5 mm trochars were placed. One was placed in the subxiphoid location and the other 2 were placed in the right upper quadrant. The gallbladder was then grasped and elevated and was noted to be edematous and inflamed. Careful dissection was performed using a [place] dissector to skeletonize the cystic duct and the cystic artery. 2 clips were placed proximally on the cystic duct and one was placed distally and the cystic duct was ligated. 2 clips were placed proximally on the cystic artery and one was placed distally and the cystic artery was ligated. Cautery was then used to dissect the gallbladder from the gallbladder fossa on the liver bed. Hemostasis was maintained. The gallbladder was then placed in an Endo Catch bag and removed from the abdomen from the 12 mm trocar site. Copious amounts of irrigation was then placed in the right upper quadrant and suctioned. There is no further evidence of any bile leakage or hemorrhage. A coagulant material was placed on the gallbladder fossa. The 12 mm trocar fascia site was then closed under direct visualization using a Jamaal-Iris device. This was done with an 0 Vicryl suture. Pneumoperitoneum was released and all ports removed from the abdomen. All incision sites were closed with 4-0 Vicryl subcuticular suture. Sterile dressing was applied. The patient was awakened in the operating suite and taken to postanesthesia care unit in fair condition.
[2021-04-22] MEDS ORDERED: HYDROmorphone 0.5 MG/0.5 ML SYRINGE IVP ONE ×3 (16:10→16:43)
[2021-04-22] MEDS: HEPARIN SODIUM,PORCINE/PF 5,000 UNIT/0.5 ML SYRINGE SQ SCH (17:33)
--- NOTE | 2021-04-22 20:24 | P.PN ---
Subjective Progress Note Date: 04/22/21 Principal diagnosis: Cholecystitis and Ileus Surgery today Objective - Vital Signs Vital signs: Vital Signs Temp 97.3 F L 04/22/21 17:15 Pulse 62 04/22/21 18:00 Resp 16 04/22/21 17:48 BP 137/76 04/22/21 18:00 Pulse Ox 93 L 04/22/21 17:15 Intake & Output 04/22/21 04/22/21 04/23/21 06:59 18:59 06:59 Intake Total 1820 1500 Output Total 810 1307 Balance 1010 193 Weight 117.934 kg Intake: IV 600 Intake, IV Titration 1700 900 Amount Piperacillin-Tazobactam 3 200 .375 gm In Sodium Chloride 0.9% 100 ml @ 25 mls/hr IVPB Q8H [facility] Rx#: [id number] Potassium Chloride 20 meq 100 In Water For Injection 1 100ml.bag @ 50 mls/hr IVPB ONCE [facility] Rx#: [id number] Sodium Chloride 0.9% 1, 1500 800 000 ml @ 100 mls/hr IV . Q10H [facility] Rx#:[id number] Oral 120 Output: Gastric Drainage 10 Urine 800 1300 Estimated Blood Loss 7 Other: Voiding Method Indwelling Catheter Indwelling Catheter - Exam - Constitutional General appearance: Present: no acute distress, Alopecia chemo induced - EENT Eyes: Present: EOMI ENT: Present: hearing grossly normal, normal oropharynx NG tube to LIS - Neck Thyroid: bilateral: normal size - Respiratory Respiratory: bilateral: CTA - Cardiovascular Rhythm: regular Heart sounds: normal: S1, S2 - Gastrointestinal General gastrointestinal: distended, tender - Integumentary Integumentary: Present: normal - Neurologic Neurologic: Present: CNII-XII intact - Musculoskeletal Musculoskeletal: Present: generalized weakness, strength equal bilaterally - Psychiatric Psychiatric: Present: COnfused today, but easily reorientedA&O x's 3, appropriate affect - Labs CBC & Chem 7: 04/22/21 05:02 04/22/21 05:02 Labs: Abnormal Lab Results - Last 24 Hours (Table) 04/22/21 04/22/21 Range/Units 05:02 05:02 WBC 3.6 L (3.8-10.6) k/uL RBC 2.63 L (3.80-5.40) m/uL Hgb 8.9 L D (11.4-16.0) gm/dL Hct 26.1 L (34.0-46.0) % Lymphocytes # 0.6 L (1.0-4.8) k/uL Potassium 3.4 L (3.5-5.5) mmol/L Chloride 112 H (96-109) mmol/L Calcium 8.1 L (8.7-10.3) mg/dL Total Protein 5.4 L (6.2-8.2) g/dL Albumin 3.20 L (3.80-4.90) g/dL Albumin/Globulin Ratio 1.45 L (1.60-3.17) g/dL Assessment and Plan (1) Ileus Current Visit: Yes Status: Acute Code(s): K56.7 - ILEUS, UNSPECIFIED SNOMED Code(s): 619912015 (2) Bladder cancer Current Visit: No Status: Chronic Priority: Medium Code(s): C67.9 - MALIGNANT NEOPLASM OF BLADDER, UNSPECIFIED SNOMED Code(s): 914176260 Plan: Gen surgery following CHolelithiasis, ileus. Currently NPO NG tube LIS Ileus likely secondary to Cholecystitis, General surgery regarding intervention. Discussed with primary team and patient PLan is open intervention with Dr. Casey today Will await results and monitor CBC and CMP closely following
[2021-04-22] MEDS: HYDROmorphone 1 MG/ML 1 ML SYRINGE IVP PRN (20:48)
[2021-04-23] MEDS: HEPARIN SODIUM,PORCINE/PF 5,000 UNIT/0.5 ML SYRINGE SQ SCH ×2 (00:01→07:41)
[2021-04-23] MEDS: SODIUM CHLORIDE 0.9% 1,000 ML IV SCH (01:10)
[2021-04-23] MEDS: HYDROmorphone 1 MG/ML 1 ML SYRINGE IVP PRN (03:53)
[2021-04-23] MEDS: PIPERACILLIN-TAZOBACTAM 3.375 GM in SODIUM CHLORIDE 0.9% 100 ML IVPB SCH ×3 (03:55→21:02)
[2021-04-23 07:35] LABS: Basophils % (A) 0 %; Eosinophils % (A) 1 %; HCT 27.2 % (34.0-46.0); HGB 9.3 gm/dL (11.4-16.0); Hypochromasia Slight; Lymphocytes # (A) 0.6 k/uL (1.0-4.8); Lymphocytes % (A) 11 %; MCH 34.3 pg (25.0-35.0); MCHC 34.1 g/dL (31.0-37.0); MCV 100.7 fL (80.0-100.0); Macrocytosis Slight; Mean Platelet Volume 7.2; Monocytes # (A) 0.7 k/uL (0-1.0); Monocytes % (A) 13 %; Neutrophils # (A) 3.9 k/uL (1.3-7.7); Neutrophils % (A) 74 %; Platelet Count 187 k/uL (150-450); RDW 14.1 % (11.5-15.5); WBC 5.2 k/uL (3.8-10.6)
[2021-04-23] MEDS: HYDROmorphone 0.5 MG/0.5 ML SYRINGE IVP PRN (07:42)
[2021-04-23] MEDS: PANTOPRAZOLE 40 MG/10 ML VIAL IV SCH (07:42)
[2021-04-23 07:53] LABS: ALT 18 U/L (4-34); AST 47 U/L (14-36); African American GFR (CKD) >90 (>60 ml/min/1.73 sqM); Albumin/Globulin Ratio 1.1; Alkaline Phosphatase 51 U/L (38-126); Anion Gap 8 mmol/L; Blood Urea Nitrogen 10 mg/dL (7-17); Calcium 8.7 mg/dL (8.4-10.2); Carbon Dioxide 17 mmol/L (22-30); Chloride 112 mmol/L (98-107); Globulin 2.8 g/dL; Glucose 143 mg/dL (74-99); Non-African American GFR(CKD) 84 (>60 ml/min/1.73 sqM); Potassium 4.2 mmol/L (3.5-5.1); Sodium 137 mmol/L (137-145); Total Bilirubin 0.4 mg/dL (0.2-1.3); Total Protein 5.8 g/dL (6.3-8.2)
[2021-04-23] MEDS ORDERED: DICYCLOMINE 10 MG CAP PO PRN (09:11)
[2021-04-23] MEDS ORDERED: ACETAMINOPHEN TAB 325 MG TAB PO PRN (09:11)
--- NOTE | 2021-04-23 09:54 | P.PN ---
Subjective Progress Note Date: 04/23/21 Patient seen and examined at bedside. Pleasantly confused. Denies any significant abdominal pain. States she has having flatus. Denies nausea or vomiting. Objective - Vital Signs Vital signs: Vital Signs Temp 97.8 F 04/23/21 04:45 Pulse 68 04/23/21 04:45 Resp 20 04/23/21 04:45 BP 136/74 04/23/21 04:45 Pulse Ox 95 04/23/21 04:45 Intake & Output 04/22/21 04/23/21 04/23/21 18:59 06:59 18:59 Intake Total 1500 1940 Output Total 1307 1050 Balance 193 890 Weight 117.934 kg Intake: IV 600 Intake, IV Titration 900 1400 Amount Piperacillin-Tazobactam 3 200 .375 gm In Sodium Chloride 0.9% 100 ml @ 25 mls/hr IVPB Q8H [facility] Rx#: [id number] Potassium Chloride 20 meq 100 In Water For Injection 1 100ml.bag @ 50 mls/hr IVPB ONCE [facility] Rx#: [id number] Sodium Chloride 0.9% 1, 800 1200 000 ml @ 100 mls/hr IV . Q10H [facility] Rx#:[id number] Oral 540 Output: Urine 1300 1050 Straight 350 Uretheral (Jewell) 350 Estimated Blood Loss 7 Other: Voiding Method Indwelling Catheter Indwelling Catheter - Constitutional General appearance: Present: cooperative - Gastrointestinal Gastrointestinal Comment(s): Soft, nontender, nondistended, incision sites are clean, dry and intact - Musculoskeletal Musculoskeletal: Present: generalized weakness - Labs CBC & Chem 7: 04/23/21 07:07 04/23/21 07:07 Labs: Abnormal Lab Results - Last 24 Hours (Table) 04/23/21 04/23/21 Range/Units 07:07 07:07 RBC 2.70 L (3.80-5.40) m/uL Hgb 9.3 L (11.4-16.0) gm/dL Hct 27.2 L (34.0-46.0) % MCV 100.7 H (80.0-100.0) fL Chloride 112 H (98-107) mmol/L Carbon Dioxide 17 L (22-30) mmol/L Glucose 143 H (74-99) mg/dL AST 47 H (14-36) U/L Total Protein 5.8 L (6.3-8.2) g/dL Albumin 3.0 L (3.5-5.0) g/dL Assessment and Plan Plan: Postoperative day #1, laparoscopic cholecystectomy. Patient appears to be improving. Tolerating diet and having some bowel function. We will advance to low-fat diet. I do recommend protein supplements. Continue medical and cardiac recommendations.
[2021-04-23] MEDS: ESCITALOPRAM 10 MG TAB PO SCH (09:58)
[2021-04-23] MEDS: METOPROLOL SUCCINATE (ER) 100 MG TAB.ER.24H PO SCH (09:58)
[2021-04-23 11:30] LABS: Lymphocytes # (M) 0.88 k/uL (1.0-4.8); Neutrophils # (M) 4.21 k/uL (1.3-7.7); Neutrophils % (M) 81 %; Nucleated Red Blood Cells 0 /100 WBC (0-0); Total Cells Counted 100
[2021-04-23 11:31] LABS: Anisocytosis (M) Present; Poikilocytosis (M) Present
--- NOTE | 2021-04-23 13:09 | P.PN ---
Subjective Progress Note Date: 04/22/21 HISTORY OF PRESENT ILLNESS This is an 80-year-old female patient of Dr. 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 Patient had a recent hospitalization which time she was treated for infectious colitis, acute kidney injury, neutropenic sepsis, Klebsiella pneumoniae bacteremia, pancytopenia and was discharged home. Patient presented to [facility] emergency center with complaints of vomiting that started yesterday and abdominal bloating. She de nies any diarrhea. She states she last received chemotherapy and radiation therapy 3-4 weeks ago. Patient is currently nauseated and retching. She was found to be afebrile, heart rate 64, blood pressure 117/58, pulse ox 98% on room air. WBC 7.8, hemoglobin 0.9, platelet count 277. Electrolytes and renal function came back normal. Blood sugar 162. Liver function tests were normal. Lipase and amylase normal. Gallbladder ultrasound revealed cholecystitis. Hepatomegaly. There is cholelithiasis. CAT scan of the abdomen and pelvis with contrast reveals small bowel feces sign, focally dilated small bowel could be related to prior surgery rather than developing obstruction. There may be underlying ileus rather than small bowel obstruction. Correlate for cholecystitis, there is cholelithiasis. Ascites. Hepatomegaly. 04/20: Patient is seen this morning with active nausea vomiting and abdominal distention. Patient convinced to have NG tube placed. Abdominal x-ray ordered Nursing has given her pain medication will place NG tube shortly. Patient required Jewell catheter placement and this morning for urinary retention. Patient denies having any fever or chills. She has been afebrile, heart rate 71, blood pressure 149/72, pulse ox 95% on room air. Repeat lab work reveals WBC 4.3, hemoglobin 10.7, platelet count 239. Electrolytes normal. BUN 23 and creatinine 1.02. Blood sugar 134. Urinalysis clear with nitrate and l eukoesterase negative. 04/21: Patient has been seen by Dr. Casey with plan for cholecystectomy possible open due to previous surgeries. Dr. Casey is requesting clearance from cardiology and cardiology consult added. Patient's abdominal distention is significantly improved, vomiting and and nausea improved. She does have tenderness to the right upper quadrant. Patient has been afebrile, heart rate 65, blood pressure 119/72, pulse ox 96% on room air. 04/22: Patient is scheduled for OR today with Dr. Casey. She remains with NG tube in place, abdominal distention is improved as well as abdominal pain, nausea and vomiting. She has been continued on Zosyn, Dilaudid for pain and Zofran for nausea. Patient has been afebrile, heart rate 65, blood pressure 135/75, pulse ox 94% on room air. Repeat blood work reveals WBC 3.6, hemoglobin 8.9, platelet count 172. Sodium 143, potassium 3.4 and replaced, chloride 112, CO2 23.2, BUN 10 and creatinine 0.7. Calcium 8.1. Magnesium 1.7, liver fu nction tests are normal. REVIEW OF SYSTEMS Constitutional: No fever, no chills, no night sweats. No weight change. Reports weakness, reports fatigue Reports lethargy. No daytime sleepiness. EENT: No headache. No blurred vision or double vision, no loss of vision. No loss of Hearing, no ringing in the ears, no dizziness. No nasal drainage or congestion. No epistaxis. No sore throat. Lungs: No shortness of breath, cough, no sputum production. No wheezing. Cardiovascular: No chest pain, no lower extremity edema. No palpitations. No paroxysmal nocturnal dyspnea. No orthopnea. No lightheadedness or dizziness. No syncopal episodes. Abdominal: Reports abdominal pain. Abdominal bloating improved Reports nausea, reports vomiting, improved . No constipation. No bloody or tarry stools reports loss of appetite. Genitourinary: No dysuria, increased frequency, urgency. No urinary retention. Musculoskeletal: Reports myalgias. Reports muscle weakness, Reports gait dysfunction, no frequent falls. No back pain. No neck pain. Integumentary: No wounds, no lesions. No rash or pruritus. No unusual bruising. Neurologic: No aphasia. No facial droop. No change in mentation. No head injury. No headache. No paralysis. No paresthesia. Psychiatric: No depression. No anxiety. Endocrine: No abnormal blood sugars. PHYSICAL EXAMINATION Gen: This is an 80-year-old female. Patient is resting in bed. She is slightly confused. HEENT: Head is atraumatic, normocephalic. Pupils equal, round. Sclerae is anicteric. NG tube in place NECK: Supple. No JVD. No lymphadenopathy. No thyromegaly. LUNGS: Clear to auscultation. No wheezes or rhonchi. No intercostal retractions. HEART: Irregular rate and rhythm. Systolic murmur at the fourth intercostal space left sternal border. ABDOMEN: Soft. Bowel sounds are present. No masses. Mild right upper quadrant tenderness. EXTREMITIES: No pedal edema. No calf tenderness. Dorsalis pedis palpable bilaterally. NEUROLOGICAL: Patient is awake, alert and oriented to person and place. Cranial nerves 2 through 12 are grossly intact. Generalized weakness noted. ASSESSMENT AND PLAN 1. Acute small bowel obstruction possibly related to acute cholecystitis. Patient made nothing by mouth and requires NG tube. Consult with Dr. Casey appreciated. Zofran 4 mg IV push every 6 hours as needed for nausea as well as scopolamine patch. Continue IV fluids 0.9 normal saline at 125 mL per hour. Dilaudid 1 mg every [address] Casey is planning for cholecystectomy today. Cardiology consult appreciated. 2. 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 Consult general surgery appreciated. 3. Bladder cancer status post chemotherapy. Consult with Dr. Rondon appreciated. 4. History of breast cancer status post bilateral mastectomy, stable. Hold anastrozole. 5. Hypertension. Norvasc 10 mg daily, prazosin 2 mg daily and Lasix 20 mg daily on hold. 6. Hyperlipidemia. Hold Lipitor. 7. Paroxysmal atrial fibrillation. Hold Toprol-XL 100 mg daily and eliquis 5 mg twice daily. 8. Recurrent depression. Hold Lexapro 10 mg daily. 9. Alzheimer's dementia. Hold galantamine ER 16 mg daily and Namenda 10 mg twice daily. 10. Gastroesophageal reflux disease and GI prophylaxis. Continue Protonix 40 mg IV daily. 11. Restless leg syndrome. Hold Requip 0.5 mg twice daily. 12. DVT prophylaxis. DISCHARGE PLAN Likely return home. Impression and plan of care have been directed as dictated by the signing physician. Mayi Lindsay nurse practitioner acting as scribe for signing physician. Objective - Vital Signs Vital signs: Vital Signs Temp 97.8 F 04/22/21 04:58 Pulse 65 04/22/21 04:58 Resp 16 04/22/21 04:58 BP 135/75 04/22/21 04:58 Pulse Ox 94 L 04/22/21 04:58 Intake & Output 04/21/21 04/22/21 04/22/21 18:59 06:59 18:59 Intake Total 1820 Output Total 800 810 Balance -800 1010 Intake: Intake, IV Titration 1700 Amount Piperacillin-Tazobactam 3 200 .375 gm In Sodium Chloride 0.9% 100 ml @ 25 mls/hr IVPB Q8H [facility] Rx#: [id number] Sodium Chloride 0.9% 1, 1500 000 ml @ 125 mls/hr IV . Q8H [facility] Rx#:[id number] Oral 120 Output: Gastric Drainage 10 Urine 800 800 Other: Voiding Method Indwelling Catheter Indwelling Catheter - Labs CBC & Chem 7: 04/23/21 07:07 04/23/21 07:07 Labs: Abnormal Lab Results - Last 24 Hours (Table) 04/22/21 04/22/21 Range/Units 05:02 05:02 WBC 3.6 L (3.8-10.6) k/uL RBC 2.63 L (3.80-5.40) m/uL Hgb 8.9 L D (11.4-16.0) gm/dL Hct 26.1 L (34.0-46.0) % Lymphocytes # 0.6 L (1.0-4.8) k/uL Potassium 3.4 L (3.5-5.5) mmol/L Chloride 112 H (96-109) mmol/L Calcium 8.1 L (8.7-10.3) mg/dL Total Protein 5.4 L (6.2-8.2) g/dL Albumin 3.20 L (3.80-4.90) g/dL Albumin/Globulin Ratio 1.45 L (1.60-3.17) g/dL
--- NOTE | 2021-04-23 13:13 | P.PN ---
Subjective Progress Note Date: 04/23/21 HISTORY OF PRESENT ILLNESS This is an 80-year-old female patient of Dr. 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, gastroesophageal reflux disease. Patient had a recent hospitalization which time she was treated for infectious colitis, acute kidney injury, neutropenic sepsis, Klebsiella pneumoniae bacteremia, pancytopenia and was discharged home. Patient presented to [facility] emergency center with complaints of vomiting that started yesterday and abdominal bloating. She de nies any diarrhea. She states she last received chemotherapy and radiation therapy 3-4 weeks ago. Patient is currently nauseated and retching. She was found to be afebrile, heart rate 64, blood pressure 117/58, pulse ox 98% on room air. WBC 7.8, hemoglobin 0.9, platelet count 277. Electrolytes and renal function came back normal. Blood sugar 162. Liver function tests were normal. Lipase and amylase normal. Gallbladder ultrasound revealed cholecystitis. Hepatomegaly. There is cholelithiasis. CAT scan of the abdomen and pelvis with contrast reveals small bowel feces sign, focally dilated small bowel could be related to prior surgery rather than developing obstruction. There may be underlying ileus rather than small bowel obstruction. Correlate for cholecystitis, there is cholelithiasis. Ascites. Hepatomegaly. 04/20: Patient is seen this morning with active nausea vomiting and abdominal distention. Patient convinced to have NG tube placed. Abdominal x-ray ordered Nursing has given her pain medication will place NG tube shortly. Patient required Jewell catheter placement and this morning for urinary retention. Patient denies having any fever or chills. She has been afebrile, heart rate 71, blood pressure 149/72, pulse ox 95% on room air. Repeat lab work reveals WBC 4.3, hemoglobin 10.7, platelet count 239. Electrolytes normal. BUN 23 and creatinine 1.02. Blood sugar 134. Urinalysis clear with nitrate and l eukoesterase negative. 04/21: Patient has been seen by Dr. Casey with plan for cholecystectomy possible open due to previous surgeries. Dr. Casey is requesting clearance from cardiology and cardiology consult added. Patient's abdominal distention is significantly improved, vomiting and and nausea improved. She does have tenderness to the right upper quadrant. Patient has been afebrile, heart rate 65, blood pressure 119/72, pulse ox 96% on room air. 04/22: Patient is scheduled for OR today with Dr. Casey. She remains with NG tube in place, abdominal distention is improved as well as abdominal pain, nausea and vomiting. She has been continued on Zosyn, Dilaudid for pain and Zofran for nausea. Patient has been afebrile, heart rate 65, blood pressure 135/75, pulse ox 94% on room air. Repeat blood work reveals WBC 3.6, hemoglobin 8.9, platelet count 172. Sodium 143, potassium 3.4 and replaced, chloride 112, CO2 23.2, BUN 10 and creatinine 0.7. Calcium 8.1. Magnesium 1.7, liver fu nction tests are normal. 04/23: Patient was seen this morning, she is status post liver scopic aye cystectomy. She does have some mild tenderness, NG tube is out and patient is on a clear liquid diet and tolerating. She is to start a low-fat diet at lunch today. Patient remains afebrile, heart rate 64, blood pressure 142/55, pulse ox 96% on room air. Repeat blood work reveals WBC 5.2, hemoglobin 9.3, platelet count 187. Sodium 137, potassium 4.2, chloride 112, CO2 17, BUN 10 and creatinine 0.63. AST 47. Anticipate probable discharge home tomorrow. REVIEW OF SYSTEMS Constitutional: No fever, no chills, no night sweats. No weight change. Reports weakness, reports fatigue Reports lethargy. No daytime sleepiness. EENT: No headache. No blurred vision or double vision, no loss of vision. No loss of Hearing, no ringing in the ears, no dizziness. No nasal drainage or congestion. No epistaxis. No sore throat. Lungs: No shortness of breath, cough, no sputum production. No wheezing. Cardiovascular: No chest pain, no lower extremity edema. No palpitations. No paroxysmal nocturnal dyspnea. No orthopnea. No lightheadedness or dizziness. No syncopal episodes. Abdominal: Reports abdominal pain improved. Denies nausea and vomiting. No constipation. No bloody or tarry stools reports loss of appetite. Genitourinary: No dysuria, increased frequency, urgency. No urinary retention. Musculoskeletal: Reports myalgias. Reports muscle weakness, Reports gait dysfunction, no frequent falls. No back pain. No neck pain. Integumentary: No wounds, no lesions. No rash or pruritus. No unusual bruising. Neurologic: No aphasia. No facial droop. No change in mentation. No head injury. No headache. No paralysis. No paresthesia. Psychiatric: No depression. No anxiety. Endocrine: No abnormal blood sugars. PHYSICAL EXAMINATION Gen: This is an 80-year-old female. Patient is resting in bed. She is slightly confused. HEENT: Head is atraumatic, normocephalic. Pupils equal, round. Sclerae is anicteric. NG tube in place NECK: Supple. No JVD. No lymphadenopathy. No thyromegaly. LUNGS: Clear to auscultation. No wheezes or rhonchi. No intercostal retractions. HEART: Irregular rate and rhythm. Systolic murmur at the fourth intercostal space left sternal border. ABDOMEN: Soft. Bowel sounds are present. No masses. Mild right upper quadrant tenderness. EXTREMITIES: No pedal edema. No calf tenderness. Dorsalis pedis palpable bilaterally. NEUROLOGICAL: Patient is awake, alert and oriented to person and place. Cranial nerves 2 through 12 are grossly intact. Generalized weakness noted. ASSESSMENT AND PLAN 1. Acute small bowel obstruction possibly related to acute cholecystitis status post laparoscopic cholecystectomy. Low-fat diet to start for lunch Consult with Dr. Casey appreciated. Zofran 4 mg IV push every 6 hours as needed for nausea as well as scopolamine patch. Continue IV fluids 0.9 normal saline at 125 mL per hour. Dilaudid 1 mg every 3 hours for pain. [place] as added for pain. 2. 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 Consult general surgery appreciated. 3. Bladder cancer status post chemotherapy. Consult with Dr. Rondon appreciated. 4. History of breast cancer status post bilateral mastectomy, stable. Hold anastrozole. 5. Hypertension. Norvasc 10 mg daily, prazosin 2 mg daily and Lasix 20 mg daily on hold. 6. Hyperlipidemia. Hold Lipitor. 7. Paroxysmal atrial fibrillation. Hold Toprol-XL 100 mg daily and eliquis 5 mg twice daily. 8. Recurrent depression. Hold Lexapro 10 mg daily. 9. Alzheimer's dementia. Hold galantamine ER 16 mg daily and Namenda 10 mg twice daily. 10. Gastroesophageal reflux disease and GI prophylaxis. Continue Protonix 40 mg IV daily. 11. Restless leg syndrome. Hold Requip 0.5 mg twice daily. 12. DVT prophylaxis. DISCHARGE PLAN Likely return home on Sunday. Impression and plan of care have been directed as dictated by the signing physician. Mayi Lindsay nurse practitioner acting as scribe for signing physician. Objective - Vital Signs Vital signs: Vital Signs Temp 97.6 F 04/23/21 12:22 Pulse 64 04/23/21 12:22 Resp 14 04/23/21 12:22 BP 142/55 04/23/21 12:22 Pulse Ox 96 04/23/21 12:22 Intake & Output 04/22/21 04/23/21 04/23/21 18:59 06:59 18:59 Intake Total 1500 1940 Output Total 1307 1050 Balance 193 890 Weight 117.934 kg Intake: IV 600 Intake, IV Titration 900 1400 Amount Piperacillin-Tazobactam 3 200 .375 gm In Sodium Chloride 0.9% 100 ml @ 25 mls/hr IVPB Q8H [facility] Rx#: [id number] Potassium Chloride 20 meq 100 In Water For Injection 1 100ml.bag @ 50 mls/hr IVPB ONCE [facility] Rx#: [id number] Sodium Chloride 0.9% 1, 800 1200 000 ml @ 100 mls/hr IV . Q10H [facility] Rx#:[id number] Oral 540 Output: Urine 1300 1050 Straight 350 Uretheral (Jewell) 350 Estimated Blood Loss 7 Other: Voiding Method Indwelling Catheter Indwelling Catheter Indwelling Catheter - Labs CBC & Chem 7: 04/23/21 07:07 04/23/21 07:07 Labs: Abnormal Lab Results - Last 24 Hours (Table) 04/23/21 04/23/21 Range/Units 07:07 07:07 RBC 2.70 L (3.80-5.40) m/uL Hgb 9.3 L (11.4-16.0) gm/dL Hct 27.2 L (34.0-46.0) % MCV 100.7 H (80.0-100.0) fL Lymphocytes # 0.6 L (1.0-4.8) k/uL Lymphocytes # (Manual) 0.88 L (1.0-4.8) k/uL Chloride 112 H (98-107) mmol/L Carbon Dioxide 17 L (22-30) mmol/L Glucose 143 H (74-99) mg/dL AST 47 H (14-36) U/L Total Protein 5.8 L (6.3-8.2) g/dL Albumin 3.0 L (3.5-5.0) g/dL
[2021-04-23] MEDS: HYDROcodone/APAP 5-325MG 1 EACH TAB PO PRN (20:56)
[2021-04-23] MEDS: APIXABAN 5 MG TAB PO SCH (20:56)
[2021-04-23] MEDS: MEMANTINE 10 MG TAB PO SCH (20:57)
[2021-04-23] MEDS ORDERED: ATORVASTATIN 10 MG TAB PO SCH (21:00)
[2021-04-24] MEDS: PIPERACILLIN-TAZOBACTAM 3.375 GM in SODIUM CHLORIDE 0.9% 100 ML IVPB SCH ×2 (04:17→12:59)
[2021-04-24] MEDS ORDERED: ANASTROZOLE 1 MG TAB PO SCH (09:00)
[2021-04-24] MEDS ORDERED: DONEPEZIL 10 MG TAB PO SCH (09:00)
[2021-04-24] MEDS ORDERED: PRAZOSIN 1 MG CAP PO SCH (09:00)
[2021-04-24] MEDS ORDERED: amLODIPine 10 MG TAB PO SCH (09:00)
[2021-04-24] MEDS ORDERED: FUROSEMIDE 20 MG TAB PO SCH (09:00)
--- NOTE | 2021-04-24 09:03 | P.DS ---
Providers Date of admission: 04/19/21 10:38 Expected date of discharge: 04/24/21 Attending physician: Stu Peterson MD Consults: 04/19/21 10:38 Consult Physician Routine Consulting Provider: Chandrakant Rondon Consult Reason/Comments: oncological care Do you want consulting provider notified?: Yes Consult Physician Urgent Consulting Provider: Denia Urena Consult Reason/Comments: bowel obst. vs. other Do you want consulting provider notified?: Yes 04/21/21 09:18 Consult Physician Routine Consulting Provider: Gaetano Rdz Consult Reason/Comments: surgical clearance for open aye Do you want consulting provider notified?: Yes Primary care physician: Luisana Quintanilla [facility] Course: HISTORY OF PRESENT ILLNESS This is an 80-year-old female patient of Dr. 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 Patient had a recent hospitalization which time she was treated for infectious colitis, acute kidney injury, neutropenic sepsis, Klebsiella pneumoniae bacteremia, pancytopenia and was discharged home. Patient presented to [facility] emergency center with complaints of vomiting that started yesterday and abdominal bloating. She denies any diarrhea. She states she last received chemotherapy and radiation therapy 3-4 weeks ago. Patient is currently nauseated and retching. She was found to be afebrile, heart rate 64, blood pressure 117/58, pulse ox 98% on room air. WBC 7.8, hemoglobin 0.9, platelet count 277. Electrolytes and renal function came back normal. Blood sugar 162. Liver function tests were normal. Lipase and amylase normal. Gallbladder ultrasound revealed cholecystitis. Hepatomegaly. There is cholelithiasis. CAT scan of the abdomen and pelvis with contrast reveals small bowel feces sign, focally dilated small bowel could be related to prior surgery rather than developing obstruction. There may be underlying ileus rather than small bowel obstruction. Correlate for cholecystitis, there is cholelithiasis. Ascites. Hepatomegaly. 04/20: Patient is seen this morning with active nausea vomiting and abdominal distention. Patient convinced to have NG tube placed. Abdominal x-ray ordered Nursing has given her pain medication will place NG tube shortly. Patient required Jewell catheter placement and this morning for urinary retention. Patient denies having any fever or chills. She has been afebrile, heart rate 71, blood pressure 149/72, pulse ox 95% on room air. Repeat lab work reveals WBC 4.3, hemoglobin 10.7, platelet count 239. Electrolytes normal. BUN 23 and creatinine 1.02. Blood sugar 134. Urinalysis clear with nitrate and leukoesterase negative. 04/21: Patient has been seen by Dr. Casey with plan for cholecystectomy possible open due to previous surgeries. Dr. Casey is requesting clearance from cardiology and cardiology consult added. Patient's abdominal distention is significantly improved, vomiting and and nausea improved. She does have tenderness to the right upper quadrant. Patient has been afebrile, heart rate 65, blood pressure 119/72, pulse ox 96% on room air. 04/22: Patient is scheduled for OR today with Dr. Casey. She remains with NG tube in place, abdominal distention is improved as well as abdominal pain, nausea and vomiting. She has been continued on Zosyn, Dilaudid for pain and Zofran for nausea. Patient has been afebrile, heart rate 65, blood pressure 135/75, pulse ox 94% on room air. Repeat blood work reveals WBC 3.6, hemoglobin 8.9, platelet count 172. Sodium 143, potassium 3.4 and replaced, chloride 112, CO2 23.2, BUN 10 and creatinine 0.7. Calcium 8.1. Magnesium 1.7, liver function tests are normal. 04/23: Patient was seen this morning, she is status post liver scopic cholecystectomy. She does have some mild tenderness, NG tube is out and patient is on a clear liquid diet and tolerating. She is to start a low-fat diet at lunch today. Patient remains afebrile, heart rate 64, blood pressure 142/55, pulse ox 96% on room air. Repeat blood work reveals WBC 5.2, hemoglobin 9.3, platelet count 187. Sodium 137, potassium 4.2, chloride 112, CO2 17, BUN 10 and creatinine 0.63. AST 47. Anticipate probable discharge home tomorrow. 04/24: She has been evaluated by Dr. Casey this morning and cleared for discharge. Her puncture sites are all showing no signs of infection. She's been afebrile, heart rate 67, blood pressure 157/74, pulse ox 93% on room air. Jewell catheter will be removed today. Patient is awake and alert but she has some confusion and it is noted that she has not slept in 2 days. She has family support at home and we think she is safe to return home. Patient will be discharged home today in stable condition. ASSESSMENT AND PLAN 1. Acute small bowel obstruction possibly related to acute cholecystitis status post laparoscopic cholecystectomy. 2. History of ischemic bowel in 2016 status post hemicolectomy done at [facility]. 3. Bladder cancer status post chemotherapy. 4. History of breast cancer status post bilateral mastectomy, stable. 5. Hypertension. 6. Hyperlipidemia. 7. Paroxysmal atrial fibrillation. 8. Recurrent depression. 9. Alzheimer's dementia. 10. Gastroesophageal reflux disease. 11. Restless leg syndrome. DISCHARGE PLAN Home with [facility] Impression and plan of care have been directed as dictated by the signing physician. Mayi Lindsay nurse practitioner acting as scribe for signing physician. Patient Condition at Discharge: Good Plan - Discharge Summary Discharge Rx Participant: Yes New Discharge Prescriptions: Continue Apixaban [Eliquis] 5 mg PO BID Escitalopram [Lexapro] 10 mg PO DAILY Metoprolol Succinate (ER) [Toprol XL] 100 mg PO DAILY Atorvastatin Calcium [Lipitor] 10 mg PO HS Furosemide [Lasix] 20 mg PO DAILY rOPINIRole HCL [Requip] 0.5 mg PO BID Memantine [Namenda] 10 mg PO BID Anastrozole 1 mg PO DAILY Ondansetron [Zofran] 4 mg PO TID PRN PRN Reason: Nausea Famotidine [Pepcid] 20 mg PO DAILY tab Diphenoxylate HCl/Atropine [Lomotil 2.5-0.025 mg Tablet] 1 - 2 tab PO TID PRN PRN Reason: Diarrhea Galantamine HBr [Galantamine ER] 16 mg PO DAILY Dicyclomine [Bentyl] 10 mg PO TID PRN #90 cap PRN Reason: Dyspepsia Omeprazole [PriLOSEC] 20 mg PO DAILY amLODIPine [Norvasc] 10 mg PO DAILY #30 tab Prazosin HCl 2 mg PO DAILY Loperamide [Imodium] 2 mg PO TID PRN PRN Reason: Diarrhea Acetaminophen Tab [Tylenol] 650 mg PO Q4H PRN PRN Reason: Fever And/ Or Pain Discharge Medication List Apixaban [Eliquis] 5 mg PO BID 11/24/16 [History] Escitalopram [Lexapro] 10 mg PO DAILY 01/12/17 [History] Metoprolol Succinate (ER) [Toprol XL] 100 mg PO DAILY 12/14/17 [History] Atorvastatin Calcium [Lipitor] 10 mg PO HS 03/19/18 [History] Furosemide [Lasix] 20 mg PO DAILY 03/19/18 [History] Memantine [Namenda] 10 mg PO BID 11/28/19 [History] rOPINIRole HCL [Requip] 0.5 mg PO BID 11/28/19 [History] Anastrozole 1 mg PO DAILY 09/09/20 [History] Ondansetron [Zofran] 4 mg PO TID PRN 09/09/20 [History] Famotidine [Pepcid] 20 mg PO DAILY tab 09/11/20 [Rx] Diphenoxylate HCl/Atropine [Lomotil 2.5-0.025 mg Tablet] 1 - 2 tab PO TID PRN 01/25/21 [History] Galantamine HBr [Galantamine ER] 16 mg PO DAILY 01/25/21 [History] Prazosin HCl 2 mg PO DAILY 01/25/21 [History] Dicyclomine [Bentyl] 10 mg PO TID PRN #90 cap 02/01/21 [Rx] Omeprazole [PriLOSEC] 20 mg PO DAILY 02/16/21 [History] amLODIPine [Norvasc] 10 mg PO DAILY #30 tab 02/21/21 [Rx] Acetaminophen Tab [Tylenol] 650 mg PO Q4H PRN 04/19/21 [History] Loperamide [Imodium] 2 mg PO TID PRN 04/19/21 [History] Follow up Appointment(s)/Referral(s): Luisana Quintanilla MD [Primary Care Provider] - 1 Week [facility], [NON-STAFF] - 1-2 Days Hunter Casey DO [Doctor of Osteopathic Medicine] - 2 Weeks Discharge Disposition: HOME WITH HOME HEALTH SERVICES
[2021-04-24] MEDS: ESCITALOPRAM 10 MG TAB PO SCH (09:43)
[2021-04-24] MEDS: APIXABAN 5 MG TAB PO SCH (09:43)
[2021-04-24] MEDS: PANTOPRAZOLE 40 MG/10 ML VIAL IV SCH (09:44)
[2021-04-24] MEDS: METOPROLOL SUCCINATE (ER) 100 MG TAB.ER.24H PO SCH (09:44)
[2021-04-24] MEDS: MEMANTINE 10 MG TAB PO SCH (09:44)
[2021-04-24 10:32] VITALS: RESP 16
[2021-04-24] MEDS: HYDROcodone/APAP 5-325MG 1 EACH TAB PO PRN (11:38)
[2021-04-24 13:02] VITALS: BP 128/69; PULSE 72; TEMP 99.2
--- NOTE | 2021-04-24 22:30 | P.PN ---
Subjective Progress Note Date: 04/24/21 patient is status post cholecystectomy on 04/22/21. No obvious postoperative complications. He is tolerating diet well. No history of fever/chills. Confusion has improved Objective - Vital Signs Vital signs: Vital Signs Temp 99.2 F 04/24/21 13:00 Pulse 72 04/24/21 13:00 Resp 16 04/24/21 13:00 BP 128/69 04/24/21 13:00 Pulse Ox 91 L 04/24/21 13:00 Intake & Output 04/24/21 04/24/21 04/25/21 06:59 18:59 06:59 Intake Total 440 Output Total 1200 900 Balance -760 -900 Intake: Intake, IV Titration 440 Amount Piperacillin-Tazobactam 3 200 .375 gm In Sodium Chloride 0.9% 100 ml @ 25 mls/hr IVPB Q8H [facility] Rx#: [id number] Sodium Chloride 0.9% 1, 240 000 ml @ 100 mls/hr IV . Q10H [facility] Rx#:[id number] Output: Urine 1200 900 Uretheral (Jewell) 1200 200 Other: Voiding Method Indwelling Catheter Indwelling Catheter # Voids 1 - Constitutional General appearance: Present: no acute distress - EENT Eyes: Present: EOMI ENT: Present: hearing grossly normal, normal oropharynx - Respiratory Respiratory: bilateral: diminished - Cardiovascular Rhythm: regular Heart sounds: normal: S1, S2 - Gastrointestinal General gastrointestinal: Present: decreased bowel sounds Localized gastrointestinal: tender: RUQ - Neurologic Neurologic: Present: CNII-XII intact - Musculoskeletal Musculoskeletal: Present: generalized weakness, strength equal bilaterally - Psychiatric Psychiatric Comment(s): the patient still has confusion and diminished recall, which now appears to be closer to her usual baseline - Labs CBC & Chem 7: 04/23/21 07:07 04/23/21 07:07 Assessment and Plan (1) Acute cholecystitis Narrative/Plan: the patient is status post surgery for the same. She tolerated the procedure well. She is symptomatically improved since. She is tolerating diet well. Postop care discharge according to surgery/admitting service Status: Acute Code(s): K81.0 - ACUTE CHOLECYSTITIS SNOMED Code(s): 04278110 (2) Bladder cancer Narrative/Plan: patient has completed treatment for her small cell carcinoma of the bladder with full dose induction chemotherapy, followed by chemoradiation. She did have several complications especially in the latter half of her treatment but was able to complete essentially her entire regimen. She still has residual weakness and diminished performance status compared to her baseline but was improving leading up to her current acute event. - From the cancer standpoint, the patient is now on surveillance. She already has follow-up CT scans an office visit scheduled. Post discharge she also has to follow up with urology for cystoscopic surveillance. Status: Chronic Priority: Medium Code(s): C67.9 - MALIGNANT NEOPLASM OF BLADDER, UNSPECIFIED SNOMED Code(s): 123235347
== END 2021-04-24 14:09 | disposition home health service (06) | DRG 418 ==
LOC: EC 07:44 → 5NMEDONC 10:38
PROVIDERS: ADMIT Internal Medicine; ATTEND Internal Medicine
PROC: 0D9670Z Drainage of Stomach with Drainage Device, Via Natural or Artificial Opening (ICD-10-PCS; 2021-04-19)
PROC: 0FT44ZZ Resection of Gallbladder, Percutaneous Endoscopic Approach (ICD-10-PCS; principal; 2021-04-22 09:10)
DX: K80.00 Calculus of gallbladder with acute cholecystitis without obstruction (principal); K56.7 Ileus, unspecified; R18.8 Other ascites; F33.9 Major depressive disorder, recurrent, unspecified; K56.609 Unspecified intestinal obstruction, unspecified as to partial versus complete obstruction; K82.8 Other specified diseases of gallbladder; C67.9 Malignant neoplasm of bladder, unspecified; D09.9 Carcinoma in situ, unspecified; E78.5 Hyperlipidemia, unspecified; G30.9 Alzheimer's disease, unspecified; F02.80 Dementia in other diseases classified elsewhere, unspecified severity, without behavioral disturbance, psychotic disturbance, mood disturbance, and anxiety; G25.81 Restless legs syndrome; I10 Essential (primary) hypertension; I25.10 Atherosclerotic heart disease of native coronary artery without angina pectoris; I27.20 Pulmonary hypertension, unspecified; I45.10 Unspecified right bundle-branch block; I48.0 Paroxysmal atrial fibrillation; K21.9 Gastro-esophageal reflux disease without esophagitis; R16.0 Hepatomegaly, not elsewhere classified; Z79.01 Long term (current) use of anticoagulants; Z85.3 Personal history of malignant neoplasm of breast; Z79.811 Long term (current) use of aromatase inhibitors; Z79.899 Other long term (current) drug therapy; Z80.8 Family history of malignant neoplasm of other organs or systems; Z82.49 Family history of ischemic heart disease and other diseases of the circulatory system; Z87.440 Personal history of urinary (tract) infections; Z87.74 Personal history of (corrected) congenital malformations of heart and circulatory system; Z87.891 Personal history of nicotine dependence; Z90.13 Acquired absence of bilateral breasts and nipples; Z92.21 Personal history of antineoplastic chemotherapy; Z92.3 Personal history of irradiation; Z60.2 Problems related to living alone; Z87.01 Personal history of pneumonia (recurrent); Z98.42 Cataract extraction status, left eye; Z98.41 Cataract extraction status, right eye; Z98.51 Tubal ligation status; Z98.890 Other specified postprocedural states; Z88.5 Allergy status to narcotic agent
CPT/HCPCS: 36415; 74018; 74177; 76705; 80053; 81001; 82150; 83690; 83735; 85025; 85610; 85730; 88304; 93005; 93306; 96361; 96374; 96375; 99285

== ENCOUNTER → 2021-05-06 | Outpatient (CLI) | payer MEDICARE ==
--- NOTE | 2021-05-09 09:04 | CT ---
EXAMINATION TYPE: CT chest w con DATE OF EXAM: 05/06/2021 COMPARISON: 12/17/2020, 08/27/2020, 06/21/2018 HISTORY: 80-year-old female C67.9, bladder cancer. TECHNIQUE: Contiguous axial scanning of the chest after the administration of 100 mL of Isovue 300. Coronal/sagittal reconstructions performed. CT DLP: 434.4mGycm. Automatic exposure control utilized for a dose reduction. FINDINGS: Status post bilateral mastectomies. Heart borderline enlarged without pericardial effusion. Three-vessel coronary artery calcifications a re present in remarkable for coronary artery disease. Mild to moderate atherosclerotic arch calcifications. Conventional arch vessel branching anatomy. Large caliber to the main right and left pulmonary arteries measuring 3.0 and 2.6 cm, respectively, s uggesting underlying pulmonary arterial hypertension. No thoracic lymphadenopathy by CT size criteria. Mild centrilobular emphysema. Biapical pleural-parenchymal scarring. Additional scattered subpleural interstitial scarring is present. Dependent atelectasis. Strandy atelectasis or scarring at the lung bases. 5 mm subpleural pulmonary nodule posterior right lobe may represent some nodular atelectasis. Reasses s at 3-6 months. No consolidation or pleural effusion otherwise seen. Visualized upper abdomen shows cholecystectomy clips. Stable 2.0 cm cyst anterior upper pole left kid marjorie. Some focal prominence to the tip of the pancreatic tail is unchanged. Bones: Accentuated mid to lower thoracic kyphosis with chronic mild vertebral body height loss at T8 and T9 levels with moderate to advanced degenerative disc disease at these levels. IMPRESSION: 1. Status post bilateral mastectomies. 2. COPD with mild emphysema, CAD, and pulmonary arterial hypertension. 3. A new 5 mm subpleural pulmonary nodule posterior right lower lobe could represent nodular atelecta sis. 3 - 6 month follow-up CT recommended to exclude a new pulmonary nodule. 4. Otherwise, there are scattered strandy areas of scarring or atelectasis in the lungs.
== END | disposition home or self-care (01) ==
LOC: RADCTMAIN 10:57
PROVIDERS: ATTEND Internal Medicine Hematology & Oncology
DX: J43.9 Emphysema, unspecified (principal); I25.10 Atherosclerotic heart disease of native coronary artery without angina pectoris; I27.21 Secondary pulmonary arterial hypertension; R91.1 Solitary pulmonary nodule; Z90.13 Acquired absence of bilateral breasts and nipples
CPT/HCPCS: 82565; 84520; 71260; Q9967

== ENCOUNTER → 2021-05-17 | Outpatient (CLI) | payer MEDICARE ==
--- NOTE | 2021-05-17 16:42 | FL ---
EXAMINATION TYPE: FL barium swallow w video DATE OF EXAM: 05/17/2021 COMPARISON: NONE HISTORY: Dysphasia TECHNIQUE: Fluoroscopy. FINDINGS: Fluoroscopic guidance was provided for the procedure performed in conjunction with the [facility] pathology department. Please see complete report forthcoming from the Speech Pathology departmen t. Various consistencies from thin liquid to solids were administered. Fluoroscopy time 56 seconds. Number of images: 0. No aspiration or penetration was evident. No significant pooling was observed in the vallecula. There was normal propulsion of the bolus. IMPRESSION: 1. Normal modified barium swallow. 2. If additional evaluation of the more distal esophagus would be of benefit, esophagram could be per formed.
== END | disposition home or self-care (01) ==
LOC: RADFLMAIN 11:21
PROVIDERS: ATTEND Family Medicine
DX: R47.02 Dysphasia (principal)
CPT/HCPCS: 74230

== ENCOUNTER 2021-06-22 10:01 | Day surgery (SDC) | payer MEDICARE ==
[2021-06-16 09:13] VITALS: BMI 29.7
[~2021-06-22 10:01] MED LIST changes: +LACTATED RINGERS 1,000 ML IV SCH; -VANCOMYCIN 1,000 MG in SODIUM CHLORIDE 0.9% 250 ML IVPB ONE; -VANCOMYCIN 1,500 MG in SODIUM CHLORIDE 0.9% 250 ML IVPB STA
[2021-06-22 10:24] VITALS: TEMP 97.8
[2021-06-22] MEDS ORDERED: LACTATED RINGERS 1,000 ML IV ONE (10:24)
[2021-06-22] MEDS ORDERED: PROPOFOL 10 MG/ML 20 ML VIAL IV ONE (10:50)
[2021-06-22] MEDS ORDERED: LIDOCAINE 1% INJ 10MG/ML (20 ML MDV) ONE (10:50)
--- NOTE | 2021-06-22 11:05 | P.PCN ---
Date of Procedure: 06/22/21 Procedure(s) Performed: BRIEF HISTORY: Patient is a 80-year-old, pleasant, female scheduled for an upper endoscopy as a part of evaluation of intermittent solid food dysphagia for the last 6 years duration.. PROCEDURE PERFORMED: Esophagogastroduodenoscopy with biopsy and dilation. PREOPERATIVE DIAGNOSIS: Intermittent dysphagia to solids of 2 years duration. IV sedation per anesthesia. PROCEDURE: After informed consent was obtained, the patient was brought into the endoscopy unit. IV sedation was administered by Anesthesia under continuous monitoring. Initially the Olympus GIF-140 video endoscope was inserted into the mouth. Esophagus intubated without any difficulty. It was gradually advanced into the stomach and duodenum and carefully examined. The bulb and the second part of the duodenum appeared normal. The scope at this time was withdrawn to the stomach, adequately insufflated with air, and upon careful examination, mucosa of the antrum, had mild gastritis and a 5 mm antral ulcer that was biopsied. Rest of the body, cardia and the fundus appeared normal. The scope was then withdrawn into the esophagus. The GE junction was located at 39 cm from the incisors. There was a distal esophageal widely patent Schatzki's ring that was dilated using 18-20 mm TTS balloon in a sequential fashion for 90 seconds. The rest of the esophagus appeared normal. There were no erosions or ulcerations seen and the patient tolerated the procedure well. IMPRESSION: 1. Widely patent distal esophageal Schatzki's ring status post balloon dilation using 18-20 mm balloon as described above. 2. Antral gastritis and a 5 mm antral ulcer status post biopsy. RECOMMENDATIONS: The findings of this examination were discussed with the patient as well as a family. She was advised to be on a clear liquid diet for lunch today. She'll be started on omeprazole 20 mg daily. She will follow with the biopsy results. If she has persistent dysphagia she can follow up in office..
[2021-06-22 11:11] VITALS: RESP 16
[2021-06-22 11:31] VITALS: BP 129/65; PULSE 66
== END 2021-06-22 12:20 | disposition home or self-care (01) ==
LOC: ORWHC2ENDO 10:01
PROVIDERS: ATTEND Internal Medicine Gastroenterology
DX: K25.9 Gastric ulcer, unspecified as acute or chronic, without hemorrhage or perforation (principal); K31.9 Disease of stomach and duodenum, unspecified; Z79.899 Other long term (current) drug therapy; K22.2 Esophageal obstruction; I10 Essential (primary) hypertension; E78.5 Hyperlipidemia, unspecified; K21.9 Gastro-esophageal reflux disease without esophagitis; I48.91 Unspecified atrial fibrillation; Z79.01 Long term (current) use of anticoagulants
CPT/HCPCS: 88305; 43239; 43249; J2001; J2704; C1726

== ENCOUNTER → 2021-07-13 | Outpatient (CLI) | payer MEDICARE ==
[2021-07-13 13:23] LABS: Appearance,Urine Cloudy (Clear); Bilirubin,Urine Negative (Negative); Blood,Urine Trace (Negative); Color,Urine Yellow; Glucose,Urine (UA) Negative (Negative); Hyaline Casts,Urine 35 /lpf (0-2); Ketones,Urine Negative (Negative); Leukocyte Esterase,Urine Large (Negative); Mucus,Urine Rare /hpf; Nitrite,Urine Negative (Negative); Protein,Urine Trace (Negative); RBC,Urine 6 /hpf (0-5); Specific Gravity,Urine 1.019 (1.001-1.035); Squamous Epithelial Cell,Urine <1 /hpf (0-4); WBC,Urine 28 /hpf (0-5)
[2021-07-13 14:43] LABS: Creatinine,Urine Random 280.3 mg/dL; Protein/Creatinine Ratio,Urine 0.025
[2021-07-13 18:53] LABS: Basophils # (A) 0.01 X 10*3/uL (0.00-0.10); Basophils % (A) 0.2 %; Eosinophils # (A) 0.07 X 10*3/uL (0.04-0.35); Eosinophils % (A) 1.3 %; HCT 27.9 % (37.2-46.3); HGB 9.1 g/dL (12.0-15.0); Lymphocytes # (A) 0.56 X 10*3/uL (0.90-5.00); MCH 33.7 pg (27.0-32.0); MCHC 32.6 g/dL (32.0-37.0); MCV 103.3 fL (80.0-97.0); Mean Platelet Volume 10.5 fL (9.5-12.2); Monocytes # (A) 0.42 X 10*3/uL (0.20-1.00); Monocytes % (A) 7.5 %; Neutrophils % (A) 80.6 %; Platelet Count 202 X 10*3/uL (140-440); RDW 16.5 % (11.5-14.5); WBC 5.58 X 10*3/uL (4.50-10.00)
[2021-07-13 22:02] LABS: % Iron Saturation 28.54 (12.00-45.00); Magnesium 1.9 mg/dL (1.5-2.4); Phosphorus 4.2 mg/dL (2.4-5.1); Uric Acid 7.2 mg/dL (2.9-7.7)
[2021-07-14 11:18] LABS: Albumin 4.2 g/dL (3.8-4.9); BUN/Creat Ratio 14.63 Ratio (12.00-20.00)
[2021-07-14 11:19] LABS: African American GFR (CKD) 55.8 (60.0-200.0); Anion Gap 14.6 mmol/L (4.00-12.00); Blood Urea Nitrogen 15.8 mg/dL (9.0-27.0); Calcium 9.2 mg/dL (8.7-10.3); Carbon Dioxide 19.6 mmol/L (21.6-31.8); Non-African American GFR(CKD) 48.1 (60.0-200.0); Potassium 3.7 mmol/L (3.5-5.5)
== END | disposition home or self-care (01) ==
LOC: LABWHC1 11:34
PROVIDERS: ATTEND Internal Medicine Nephrology
DX: E55.9 Vitamin D deficiency, unspecified (principal); M10.9 Gout, unspecified; N39.0 Urinary tract infection, site not specified; D63.1 Anemia in chronic kidney disease; N18.32 Chronic kidney disease, stage 3b; R80.9 Proteinuria, unspecified
CPT/HCPCS: 36415; 80048; 81001; 82040; 82306; 82570; 82728; 83540; 83550; 83735; 83970; 84100; 84156; 84550; 85025

== ENCOUNTER → 2021-08-22 | Outpatient (CLI) | payer MEDICARE ==
--- NOTE | 2021-08-22 17:44 | CT ---
EXAMINATION TYPE: CT ChestAbdPelvis w con DATE OF EXAM: 08/22/2021 INDICATION: follow up bladder/breast cancer COMPARISON: 05/06/2021, 04/19/2021 CT DLP: 1841.4 mGycm CONTRAST: Performed with Oral Contrast and with IV Contrast, patient injected with 100 mL of Isovue 300. TECHNIQUE: Axial images at 5 mm thick sections. Reconstructed images in the coronal plane. Delayed images through the kidneys. FINDINGS: CT CHEST: Portion of the thyroid visualized is normal. No suspicious lung nodules or focal infiltrates are present. Previous right lower lobe peripheral nod ule not identified on the current exam. No enlarged mediastinal or hilar adenopathy is evident. The ascending aorta diameter at the level of the main pulmonary artery is 3.2 cm. The main pulmonary artery diameter at the bifurcation is 3.5 cm. Correlate for pulmonary hypertension. Coronary artery calcification is noted. CT ABDOMEN: There is a subcutaneous nodule left of the umbilicus measuring 1.4 cm. This is new and no nspecific could be a small hematoma or contusion. Metastatic lesion is not excluded. Series 4 image 7 4. Liver: Normal Spleen: Normal Pancreas: Normal Adrenal glands: The adrenal glands are normal. Gallbladder: Surgically absent Kidneys: No masses are evident. No hydronephrosis is present. There is a 2.4 cm cyst measuring 23 H [place] units in the anterior upper pole left kidney. Delayed images were obtained through the kid neys, which remain unremarkable. Aorta: Vascular calcification is within the aorta. Inferior vena cava: Normal. CT PELVIS: Loops of bowel within the abdomen and pelvis are normal. There are loops of bowel which are incom pletely distended or lack oral contrast limiting their evaluation. Appendix: Not visualized. No dilated tubular structure or inflammatory changes are evident. Urinary bladder: Normal. Genitourinary structures: Uterus is normal. Adnexal regions are clear. Osseous structures: No suspicious lytic or sclerotic lesions. IMPRESSIONS: 1. New nonspecific cutaneous density in the left periumbilical region. Contusion hematoma and metasta tic nodule could be within the differential. Follow-up is recommended.
== END | disposition home or self-care (01) ==
LOC: RADCTMAIN 10:33
PROVIDERS: ATTEND Internal Medicine Hematology & Oncology
DX: C67.9 Malignant neoplasm of bladder, unspecified (principal); C50.919 Malignant neoplasm of unspecified site of unspecified female breast; M79.89 Other specified soft tissue disorders
CPT/HCPCS: 82565; 84520; 71260; 74177; 36415; Q9967

== ENCOUNTER → 2021-11-28 | Outpatient (CLI) | payer MEDICARE ==
--- NOTE | 2021-11-28 18:53 | CT ---
EXAMINATION TYPE: CT Chest Abd Pelvis w con DATE OF EXAM: 11/28/2021 COMPARISON: CT dated 08/22/2021 HISTORY: History of bladder and breast cancer, observe for METS CT DLP: 1723.4 mGycm Automated exposure control for dose reduction was used. CONTRAST: CT scan of the chest, abdomen and pelvis is performed with Oral Contrast and with IV Contrast, patien t injected with 80 mL of Isovue 300. FINDINGS: CHEST: Stable bilateral pulmonary peripheral reticulations and bilateral basal subsegmental atelectasis. No new lung nodule or suspicious lesion identified. No progressive lung lesion. Patent trachea and main bronchi. No pleural or pericardial effusion. Biatrial enlargement, please correlate with echocardiogr aphic results. Scattered arterial atherosclerotic calcifications including coronary arterial calcifications. The pul monary trunk measures 3.5 cm suggesting pulmonary hypertension. No progressive lymphadenopathy. Degen erative changes of the lower thoracic spine. No aggressive bone lesion. Bilateral mastectomies. Stabl e subtle posterior thecal calcification opposite the midthoracic level. Abdomen and pelvis: Resolution of the previously seen left anterior abdominal wall subcutaneous nodule. No definite hepat ic focal lesion. Previous cholecystectomy. Unremarkable spleen, pancreas and adrenals. Stable left up per pole simple renal cyst without suspicious features. Unremarkable kidneys otherwise. Extensive art erial atherosclerotic calcifications. The urinary bladder is not distended. No gross uterine or adnex al mass. Unremarkable nondistended stomach. Second part of the duodenum diverticulum. Wall thickening of segme nts of the small and large bowel, nonspecific. No evidence of bowel obstruction. Fecal loading of the colon. No gross colonic mass however a small lesion cannot be excluded. No suspicious lymphadenopath y or sizable ascites. Degenerative changes at L5-S1 level. No aggressive bone lesion. IMPRESSION: No definite suspicious lesion or metastatic disease seen in the chest, abdomen or the pelvis. Interva l changes and incidental findings as detailed above.
== END | disposition home or self-care (01) ==
LOC: RADCTMAIN 10:31
PROVIDERS: ATTEND Internal Medicine Hematology & Oncology
DX: C67.9 Malignant neoplasm of bladder, unspecified (principal); C50.311 Malignant neoplasm of lower-inner quadrant of right female breast; J98.11 Atelectasis; I51.7 Cardiomegaly; I70.90 Unspecified atherosclerosis; M47.814 Spondylosis without myelopathy or radiculopathy, thoracic region; N28.1 Cyst of kidney, acquired; K57.10 Diverticulosis of small intestine without perforation or abscess without bleeding; M47.817 Spondylosis without myelopathy or radiculopathy, lumbosacral region; Z90.49 Acquired absence of other specified parts of digestive tract
CPT/HCPCS: 82565; 84520; 71260; 74177; 36415; Q9967

== ENCOUNTER → 2022-02-08 | Outpatient (CLI) | payer MEDICARE ==
--- NOTE | 2022-02-08 14:11 | XR ---
EXAMINATION TYPE: XR abdomen 2V DATE OF EXAM: 02/08/2022 HISTORY: Pain. Technique: 4 views of the abdomen are submitted. Comparison: None. Findings: There is no convincing evidence of pneumoperitoneum. The Bowel gas pattern is nonspecific and nonobstructive. No sizable air-fluid levels are seen. No mass effects are noted. No renal calcifications are identified. IMPRESSION: 1. Nonspecific nonobstructive bowel gas pattern . Moderate fecal stasis noted.
--- NOTE | 2022-02-08 14:34 | XR ---
EXAMINATION TYPE: XR lumbar spine 2 or 3V DATE OF EXAM: 02/08/2022 CLINICAL HISTORY: pain TECHNIQUE: Three views of the lumbar spine are submitted. COMPARISON: None. FINDINGS: There are 5 lumbar type vertebral bodies identified. The lumbar spine shows satisfactory alignment w ithout evidence of acute fracture or dislocation. Vertebral body heights are within normal limits. Moderate to severe multilevel degenerative disc space narrowing. Severe lower lumbar facet joint arth ropathy. The overlying soft tissue appears unremarkable. IMPRESSION: No acute fracture or dislocation is seen in the lumbar spine. ICD 10 NO FRACTURE, INITIAL EVALUATION
== END | disposition home or self-care (01) ==
LOC: RADXRMAIN 13:35
PROVIDERS: ATTEND Family Medicine
DX: M54.50 Low back pain, unspecified (principal); R19.5 Other fecal abnormalities
CPT/HCPCS: 72100; 74019

== ENCOUNTER → 2022-03-13 | Outpatient (CLI) | payer MEDICARE ==
--- NOTE | 2022-03-13 23:38 | CT ---
EXAMINATION TYPE: CT ChestAbdPelvis w con DATE OF EXAM: 03/13/2022 COMPARISON: CT dated 11/28/2021 HISTORY: Bladder Cancer CT DLP: 2744 mGycm Automated exposure control for dose reduction was used. CONTRAST: CT scan of the chest, abdomen and pelvis is performed with Oral Contrast and with IV Contrast, patien t injected with 100 ml mL of Isovue 300. FINDINGS: LUNGS: Unchanged lungs with no new suspicious or progressive lung lesion. Patent trachea and main bro nchi. No pleural effusion. MEDIASTINUM: There are no greater than 1 cm hilar or mediastinal lymph nodes. Persistent cardiomegaly and dilated pulmonary trunk as well as arterial atherosclerotic calcifications. No pericardial effu teena is seen. OTHER: Previous lateral mastectomies. Irregularity and subtle sclerosis of the posterior aspects of the left 10th and 11th ribs, which could be related to healing fractures however underlying osseous l esions cannot be excluded. Recommend correlation with bone scan results. Multilevel lower thoracic ve rtebral body collapse, stable. LIVER/GB: Previous cholecystectomy. No definite hepatic focal lesion. PANCREAS: No significant abnormality is seen. SPLEEN: No significant abnormality is seen. ADRENALS: No significant abnormality is seen. KIDNEYS: Left upper pole simple renal cysts, otherwise unremarkable kidneys. Grossly unremarkable ure ters. Nonspecific mild thickening along the right lateral wall of the urinary bladder, otherwise elvia sly unremarkable urinary bladder. Please correlate with urine analysis results including cytology. BOWEL: No bowel obstruction. Fecal loading of the colon with segments of nonspecific mild colonic wa ll thickening. REPRODUCTIVE ORGANS: No gross uterine or adnexal mass. LYMPH NODES: No greater than 1 cm abdominal or pelvic lymph nodes are appreciated. OSSEOUS STRUCTURES: Osteopenia. No gross aggressive bone lesion. OTHER: Arterial atherosclerotic calcifications. No sizable ascites. IMPRESSION: The described changes at the posterior aspects of the left 10th and 11th ribs could be related to hea ling fractures however underlying osseous lesions can't be excluded. Recommend correlation with bone scan results. Mild wall thickening of the right lateral wall of the urinary bladder, please correlate with urine an alysis results including cytology. Otherwise no evidence of metastatic disease seen in the chest, abdomen or the pelvis. Incidental find ings as described above.
== END | disposition home or self-care (01) ==
LOC: RADCTMAIN 11:00
PROVIDERS: ATTEND Internal Medicine Hematology & Oncology
DX: C67.9 Malignant neoplasm of bladder, unspecified (principal)
CPT/HCPCS: 82565; 84520; 71260; 74177; 36415; Q9967

== ENCOUNTER → 2022-03-29 | Outpatient (CLI) | payer MEDICARE ==
--- NOTE | 2022-03-29 14:02 | CT ---
EXAMINATION TYPE: CT brain wo con DATE OF EXAM: 03/29/2022 COMPARISON: CT dated 02/16/2021 HISTORY: pt states she fell x1 week ago and hit her head, c/o headache CT DLP: 1135 mGycm Automated exposure control for dose reduction was used. TECHNIQUE: CT scan of the brain is performed without IV contrast administration. FINDINGS: Brain volume loss changes, likely age-related. Bilateral cerebral white matter hypodensities, possibl y representing chronic microvascular ischemic changes. Scattered arterial atherosclerotic calcificati ons. No acute intracranial hemorrhage. No gross acute cortical infarct. No midline shift, herniation or ve ntriculomegaly. Unremarkable basal cisterns, sella and CP angles. No gross space-occupying lesion, vasogenic edema or mass effect. Unremarkable orbits. Clear visualized paranasal sinuses and mastoid air cells. Osteopenia. Questionab le chronic fractures of the nasal bones, please correlate clinically. Degenerative change of the TMJs . IMPRESSION: No intracranial hemorrhage or mass effect. Chronic and incidental findings as described above.
== END | disposition home or self-care (01) ==
LOC: RADCTMAIN 13:32
PROVIDERS: ATTEND Family Medicine
DX: G44.311 Acute post-traumatic headache, intractable (principal)
CPT/HCPCS: 70450

== ENCOUNTER → 2022-05-22 | Outpatient (CLI) | payer MEDICARE ==
--- NOTE | 2022-05-22 18:10 | US ---
EXAMINATION TYPE: US kidneys/renal and bladder DATE OF EXAM: 05/22/2022 COMPARISON: NONE CLINICAL HISTORY: 81-year-old female N18.32 CHRONIC KIDNEY DISEASE, STAGE 3B. CKD 3 TECHNIQUE: Multiple sonographic images of the kidneys and bladder are obtained. FINDINGS: EXAM MEASUREMENTS: Right Kidney: 9.7 x 3.8 x 4.2 cm Left Kidney: 10.3 x 4.8 x 3.7 cm Right Kidney: Cortical thinning. No hydronephrosis. Left Kidney: No hydronephrosis or masses seen Bladder: Underdistention Limited evaluation. Bilateral Jets seen: No IMPRESSION: Changes of chronic medical renal disease on the right. No hydronephrosis on either side. Underdistent ion of the bladder limits its evaluation.
== END | disposition home or self-care (01) ==
LOC: RADUSWWP 14:11
PROVIDERS: ATTEND Internal Medicine Nephrology
DX: N18.32 Chronic kidney disease, stage 3b (principal)
CPT/HCPCS: 76770

== ENCOUNTER → 2022-06-22 | Outpatient (CLI) | payer MEDICARE ==
--- NOTE | 2022-06-22 15:10 | CT ---
EXAMINATION TYPE: CT ChestAbdPelvis w con DATE OF EXAM: 06/22/2022 COMPARISON: 03/13/2022, 11/28/2021 HISTORY: 82-year-old female C67.9, Bladder cancer TECHNIQUE: Contiguous axial scanning of the chest, abdomen, and pelvis performed with IV Contrast, pa tient injected with 70 mL of Isovue 300. Delayed images through the kidneys were obtained. Coronal/sa gittal reconstructions performed. CT DLP: 1304.0 mGycm Automated exposure control for dose reduction was used. FINDINGS: CHEST: Heart borderline enlarged. Dense mitral annular calcifications. PFO closure device. Three-vessel rocael nary artery calcifications are present in remarkable for coronary artery disease. Conventional arch was a branching anatomy. Mild atherosclerotic calcifications throughout the aortic arch and descending thoracic aorta. No thoracic lymphadenopathy by CT size criteria. Patient is status post bilateral mastectomies. Large caliber to the main right and left pulmonary arteries measuring up to 3.0 cm suggesting underly ing pulmonary artery hypertension. Biapical pleuroparenchymal scarring. Mild emphysematous change. Scattered interstitial changes appear chronic. Some mosaic attenuation reticulations and lower lungs probably combination of atelectasis, interstitial scarring, and some air trapping. No consolidation or pleural effusion. No suspicious pul monary nodule or mass is identified. ABDOMEN: Liver enlarged at 19.7 cm likely due to the presence of a Nicholas's lobe. Portal venous system is perez nt. No biliary ductal dilatation. There is a 2.0 cm diverticulum of the second portion of the duodenu m projecting anteriorly. Cholecystectomy clips. Adrenal glands, right kidney, spleen, and pancreas within normal limits. 2.2 cm anterior left upper pole renal cortical cyst noted. Moderate atelectatic calcifications abdominal aorta and common iliac arteries. No aneurysm. No dilated small bowel, free fluid, or free air. No mesenteric or retroperitoneal lymphadenopathy. No significant stool burden. Oral contrast progressed to the rectum. There is smooth circumferential wall thickening mid to distal sigmoid and rectum. PELVIS: New mild circumferential bladder wall thickening along with mild perivesicular fat stranding. Slight asymmetric thickening along the right lateral bladder wall. Mild fat stranding throughout the intrape lvic fat. Trace adnexal fluid on both sides. Both ovaries are visualized. Uterus is anteverted. Numer ous pelvic fluid ligaments. No pelvic lymphadenopathy seen. BONES: Osteopenia. Mild degenerative change at the hips. Moderate degenerative disc disease L5-S1 as well as throughout the mid thoracic spine. Facet arthropathy mid and lower lumbar spine. Mild vertebral body height loss T8 and T9 levels. This is unchanged from 11/28/2021 suggesting remote injuries. Interval healing of the previous left posterior 10th and 11th rib fractures. Degenerative change both shoulder s. IMPRESSION: 1. NEW MILD FAT STRANDING THROUGHOUT THE INTRAPELVIC FAT AND SMOOTH CIRCUMFERENTIAL WALL THICKENING A LONG THE MID TO DISTAL SIGMOID AND RECTUM. TRACE FLUID IS PRESENT AT THE ADNEXA WELL. SUSPECT REAC TIVE, POST RADIATION THERAPY CHANGES. CLINICALLY CORRELATE. 2. INCREASED CIRCUMFERENTIAL BLADDER WALL THICKENING THOUGH SLIGHTLY ECCENTRIC ALONG THE RIGHT LATERA L BLADDER WALL. AGAIN, LIKELY POSTTREATMENT CHANGE. CONTINUED FOLLOW-UP CLINICALLY INDICATED. 3. OTHERWISE, NO EVIDENCE FOR METASTATIC DISEASE. 4. INCIDENTAL: COPD, PULMONARY HYPERTENSION, THREE-VESSEL CORONARY ARTERY CALCIFICATIONS. INTERVAL HE ALING OF PREVIOUS LEFT POSTERIOR 10TH AND 11TH RIB FRACTURES.
--- NOTE | 2022-06-22 15:33 | NM ---
EXAMINATION TYPE: NM bone scan whole body DATE OF EXAM: 06/22/2022 COMPARISON: CT 06/22/2022 HISTORY: 81-year-old female C6 7.9, bladder cancer Technique: Delayed whole-body scanning was performed following the injection of 23.3 mCi Tc 99m MDP. Images acquired 3 hours post injection. FINDINGS: Mild focal uptake involving the left posterior 10th and 11th ribs. Also, slightly more laterally ernie g the left 10th rib. Given the CT findings on today's exam as well as 03/13/2022, findings suggest site of healed rib fractures. Prominent degenerative tracer activity medial compartment of both knees and also at the left mid foot. Some degenerative tracer activity right shoulder and lateral sternoclavic ular joints. Also along the left posterior elements of the upper to mid cervical spine. Otherwise, no suspicious distribution of tracer activity identified. Degenerative tracer activity base of the thum b on the right. IMPRESSION: 1. No scintigraphic evidence for osseous metastatic disease. 2. Mild activity involving left posterior 10th and 11th ribs. When correlating with CT of today as we ll as 03/13/2022, findings suggest sequela of prior healed rib fractures. An additional site along the right lateral 10th rib is noted by bone scan. 3. Scattered degenerative tracer activity as above. No scintigraphic evidence for osseous metastatic disease.
== END | disposition home or self-care (01) ==
LOC: RADNMMAIN 10:26
PROVIDERS: ATTEND Internal Medicine Hematology & Oncology
DX: C67.9 Malignant neoplasm of bladder, unspecified (principal); S22.42XA Multiple fractures of ribs, left side, initial encounter for closed fracture; M51.27 Other intervertebral disc displacement, lumbosacral region; M47.816 Spondylosis without myelopathy or radiculopathy, lumbar region
CPT/HCPCS: 82565; 84520; 71260; 74177; 36415; 78306; A9503; Q9967 ×2

== ENCOUNTER → 2022-08-04 | Outpatient (CLI) | payer MEDICARE ==
--- NOTE | 2022-08-04 11:55 | FL ---
ESOPHOGRAM. HISTORY: Dysphagia Esophagram was performed per the air contrast technique. The patient swallowed barium and effervesce nt crystals without difficulty or delay. Esophageal peristalsis and motility appear to be within normal limits. There is no evidence for filling defect, mass or diverticulum. No hiatal hernia seen. Subsequently single contrast cervical esophagram was performed which fails demonstrate evidence for a spiration penetration or mass. IMPRESSION: Unremarkable study.
== END | disposition home or self-care (01) ==
LOC: RADUSWWP 11:00
PROVIDERS: ATTEND Family Medicine
DX: R13.10 Dysphagia, unspecified (principal)
CPT/HCPCS: 74220

== ENCOUNTER → 2022-08-24 | Outpatient (CLI) | payer MEDICARE ==
[~2022-08-24] MED LIST changes: -LACTATED RINGERS 1,000 ML IV SCH; +REGADENOSON 0.4 MG/5 ML SYRINGE IV PRN
--- NOTE | 2022-08-24 11:59 | NM ---
EXAMINATION TYPE: NM stress lexiscan cardiolite DATE OF EXAM: 08/24/2022 COMPARISON: NONE HISTORY: Chest pain TECHNIQUE: After the intravenous administration of 9.37 mCi Tc 99m Sestamibi - Cardiolite resting SP ECT images acquired 75 minutes post injection. The patient received 0.4mg Lexiscan, 26.7 mCi Tc 99m Sestamibi - Stress images obtained [address] injection FINDINGS: Review of stress and rest SPECT images demonstrates no distinct perfusion abnormality. Gated analysi s shows normal wall motion with an estimated left ventricular ejection fraction of 69 %. TID is calcu lated at 1.13 which is at the top end of normal and raises possibility of global, multivessel inducib le ischemia. IMPRESSION: No scintigraphic evidence for inducible ischemia.
--- NOTE | 2022-08-24 12:44 | CA ---
Lexiscan Nuclear Stress Test Report Name: Cat Overton Exam Date: 08/24/2022 09:26 Exam Location: [facility] Ht (in): 68 Wt (lb): 182 BSA: 1.96 Ordering Phys: Luisana Quintanilla MD Referring Phys: Luisana Quintanilla MD Technologist: Everardo Calles Age: 81 Gender: F : 1940 Procedure CPT: Indications: R07.9 CHEST PAIN ICD-10 Codes: Patient History: Chest Pain Medications: Meds past 24 hrs: Pretest Chest Pain: STRESS TEST Lexiscan Protocol Exercise Duration (min:sec): 02:[address] Depressions (mm): Angina Score: Gee Score: Resting HR (bpm): 54 Peak HR (bpm): 82 Resting BP (mmHg): 156 / 61 Peak BP (mmHg): 148 / 51 MPHR: 138 Target HR: 117 % MPHR: 59 METS: 1.0 Total Dose: Peak Dose: Atropine: Double Product: 94784 BP Response: Stress Termination: Infusion complete Stress Symptoms: No chest pain or symptoms Stress Summary: ECG ANALYSIS Resting ECG: Sinus rhythm. No arrhythmias. Nonspecific ST-T abnormality. Stress ECG: No ECG changes from baseline with Lexiscan infusion. CONCLUSIONS No ECG evidence of ischemia with Lexiscan infusion. Nuclear test results to follow. Dr. Edward Lopez MD (Electronically Signed) Final Date: 24 August 2022 12:43
== END | disposition home or self-care (01) ==
LOC: RADNMMAIN 08:04
PROVIDERS: ATTEND Family Medicine
DX: R07.9 Chest pain, unspecified (principal)
CPT/HCPCS: 93017; 78452; A9500; J2785

== ENCOUNTER → 2022-10-16 | Outpatient (CLI) | payer MEDICARE ==
--- NOTE | 2022-10-16 13:07 | CT ---
EXAMINATION TYPE: CT ChestAbdPelvis w con CT DLP: 2604 mGycm, Automated exposure control for dose reduction was used. DATE OF EXAM: 10/16/2022 12:23 PM COMPARISON: 06/22/2022 CT chest abdomen pelvis, most recent. CLINICAL INDICATION:Female, 81 years old with history of C67.9 BLADDER CANCER, bladder CA Technique: Multiple axial images of the chest, abdomen, and pelvis were obtained. Two-dimensional cor onal and sagittal reconstructions were obtained. Contrast used:70 mL of Isovue 300 with IV Contrast, Oral contrast used: with Oral Contrast Findings: CHEST: LUNGS/ PLEURA: No focal consolidation, pneumothorax or pleural effusion. No new or enlarging pulmonar y nodules. AIRWAY: Patent and unremarkable. HEART: The heart is mildly enlarged for size there is severe coronary artery atherosclerosis. Mitral valve annular cusp patient's. Aortic valve calcifications are present. Atrial septal occlusion device is present. MEDIASTINUM: No gross evidence of adenopathy. VASCULATURE: No aortic aneurysm. Atherosclerosis of the arterial vasculature. MUSCULOSKELETAL: No acute osseous abnormalities. SOFT TISSUES/LYMPH NODES: Unremarkable. LOWER NECK: No significant findings. ABDOMEN: ABDOMEN LIVER: Unremarkable GALLBLADDER AND BILE DUCTS: Gallbladder is surgically absent. PANCREAS: Unremarkable. SPLEEN: Unremarkable. ADRENAL GLANDS: Unremarkable. KIDNEYS AND URETERS: No evidence of hydronephrosis or renal calculus. Left renal cyst. PELVIS BLADDER: Redemonstration of somewhat asymmetric right bladder wall thickening not significantly juárez ed given differences in distention of the urinary bladder and its position next the bowel. This measu res up to 8 mm along the right. REPRODUCTIVE: Unremarkable. ABDOMEN & PELVIS STOMACH AND BOWEL: No evidence of bowel obstruction. PERITONEUM: No evidence of pneumoperitoneum or free fluid. VASCULATURE: No evidence of aortic aneurysm. MUSCULOSKELETAL: No acute osseous abnormalities LYMPH NODES: No gross evidence for lymphadenopathy. SOFT TISSUE/ABDOMINAL WALL: Unremarkable IMPRESSION: 1. Similar somewhat asymmetric right bladder wall thickening which is not significantly changed from prior given differences in bladder distention and position. 2. No evidence for lymphadenopathy or finding to suggest metastatic disease.
== END | disposition home or self-care (01) ==
LOC: RADCTMAIN 09:33
PROVIDERS: ATTEND Internal Medicine Hematology & Oncology
DX: C67.9 Malignant neoplasm of bladder, unspecified (principal); N32.89 Other specified disorders of bladder
CPT/HCPCS: 82565; 84520; 71260; 74177; Q9967

== ENCOUNTER → 2023-02-20 | Outpatient (CLI) | payer MEDICARE ==
--- NOTE | 2023-02-22 12:31 | CT ---
EXAMINATION TYPE: CT ChestAbdPelvis w con DATE OF EXAM: 02/20/2023 INDICATION: obs for suspected mets, follow up bladder CA COMPARISON: 10/16/2022 CT DLP: 1175.4 mGycm CONTRAST: Performed with Oral Contrast and with IV Contrast, patient injected with 100 mL of Isovue 300. TECHNIQUE: Axial images at 5 mm thick sections. Reconstructed images in the coronal plane. Delayed images through the kidneys. FINDINGS: CT CHEST: Portion of the thyroid visualized is normal. No suspicious lung nodules or focal infiltrates are present. No enlarged mediastinal or hilar adenopathy is evident. The ascending aorta diameter at the level of the main pulmonary artery is 3.4 cm. The main pulmonary artery diameter at the bifurcation is 3.5 cm. Coronary artery calcifications present. No pericardial effusion is appreciated. CT ABDOMEN: Liver: Normal Spleen: Normal Pancreas: Normal Adrenal glands: The adrenal glands are normal. Gallbladder: Surgically absent Kidneys: No masses are evident. No hydronephrosis is present. There is a 2.4 cm cyst on the anterio r mid left kidney. Delayed images were obtained through the kidneys which remain unremarkable. Aorta: Vascular calcification is within the aorta. Inferior vena cava: Normal. CT PELVIS: There appears to be thickening through the distal cecum. There are loops of bowel which are incomplet rick distended or lack oral contrast limiting their evaluation. Appendix: There is limited evaluation. The appendix may be somewhat thickened although no inflammator y changes are identified adjacent. Urinary bladder: Some mild wall thickening appears diffusely along the right lateral wall. Genitourinary structures: Uterus is normal. Adnexa appear normal. No free fluid is present within the pelvis. Osseous structures: No suspicious lytic or sclerotic lesions. Degenerative changes at sacroiliac join ts. There is degenerative disc change L5-S1. Facet degenerative changes are within the L4-5 and L5-S1 levels. COMPARISON: The changes within the distal cecum extending towards the appendix appear to be an interv al change. The thickening of the right urinary bladder wall appears to be an interval change. IMPRESSIONS: 1. There is increasing wall thickening along the right lateral aspect of the urinary bladder wall. Th is is adjacent to the somewhat thickened cecum extending towards the appendix.
== END | disposition home or self-care (01) ==
LOC: RADCTMAIN 13:40
PROVIDERS: ATTEND Internal Medicine Hematology & Oncology
DX: C67.9 Malignant neoplasm of bladder, unspecified (principal); I25.10 Atherosclerotic heart disease of native coronary artery without angina pectoris
CPT/HCPCS: 82565; 84520; 71260; 74177; 36415; Q9967

== ENCOUNTER 2023-06-01 12:18 | Day surgery (SDC) | payer MEDICARE ==
[2023-05-31 11:02] VITALS: BMI 26.9
[2023-06-01] MEDS ORDERED: LACTATED RINGERS 1,000 ML IV SCH (13:22)
[2023-06-01 13:55] VITALS: RESP 16; TEMP 97.1
[2023-06-01] MEDS ORDERED: LIDOCAINE 2% INJ 20 MG/ML (2 ML VIAL) ONE (14:36)
[2023-06-01] MEDS ORDERED: PROPOFOL 10 MG/ML 20 ML VIAL IV ONE (14:36)
--- NOTE | 2023-06-01 14:46 | P.PCN ---
Date of Procedure: 06/01/23 Procedure(s) Performed: BRIEF HISTORY: Patient is a 82-year-old, pleasant, white female scheduled for an upper endoscopy as a part of evaluation of intermittent dysphagia to solids for the last few months duration. She is been having the symptoms on and off for the last 8 years. Last EGD vomiting 2020 and was noted to have a distal esophageal Schatzki's ring was dilated.. PROCEDURE PERFORMED: Esophagogastroduodenoscopy with dilation. PREOPERATIVE DIAGNOSIS: Intermittent dysphagia to solids for the last few months duration. IV sedation per anesthesia. PROCEDURE: After informed consent was obtained, the patient was brought into the endoscopy unit. IV sedation was administered by Anesthesia under continuous monitoring. Initially the Olympus GIF-140 video endoscope was inserted into the mouth. Esophagus intubated without any difficulty. It was gradually advanced into the stomach and duodenum and carefully examined. The bulb and the second part of the duodenum appeared normal. The scope at this time was withdrawn to the stomach, adequately insufflated with air, and upon careful examination, mucosa of the antrum, body, cardia and the fundus appeared normal. The scope was then withdrawn into the esophagus. The GE junction was located at 39 cm from the incisors. Small hiatal hernia noted. There was a widely patent distal esophageal Schatzki's ring identified that was dilated using 18-20 mm TTS balloon for 60 seconds. The esophagus appeared normal. There were no erosions or ulcerations seen and the patient tolerated the procedure well. IMPRESSION: 1. Widely patent distal esophageal Schatzki's ring status post balloon dilation using 18-20 mm TTS balloon as described above. 2. Small hiatal hernia. RECOMMENDATIONS: The findings of this examination were discussed with the patient as well as a family.. He she was advised to be on clear liquid diet for 2 hours. Continue with Prilosec 20 mg daily and follow antireflux measures. Follow up in office in 4 weeks.
[2023-06-01 14:52] VITALS: BP 124/67
[2023-06-01 15:06] VITALS: PULSE 53
== END 2023-06-01 15:25 | disposition home or self-care (01) ==
LOC: ORWHC2ENDO 12:18
PROVIDERS: ATTEND Internal Medicine Gastroenterology
DX: K22.2 Esophageal obstruction (principal); K44.9 Diaphragmatic hernia without obstruction or gangrene; I10 Essential (primary) hypertension; E78.5 Hyperlipidemia, unspecified; I48.91 Unspecified atrial fibrillation; K21.9 Gastro-esophageal reflux disease without esophagitis; Z88.5 Allergy status to narcotic agent; Z87.891 Personal history of nicotine dependence; Z79.899 Other long term (current) drug therapy
CPT/HCPCS: 43249; J2704; J2001; C1726

== ENCOUNTER → 2023-06-18 | Outpatient (CLI) | payer MEDICARE ==
[2023-06-18 10:22] LABS: African American GFR (CKD) 52 (>60 ml/min/1.73 sqM); Blood Urea Nitrogen 26 mg/dL (7-17); Non-African American GFR(CKD) 45 (>60 ml/min/1.73 sqM)
--- NOTE | 2023-06-18 11:52 | CT ---
EXAMINATION TYPE: CT ChestAbdPelvis w con CT DLP: 1117.1 mGycm, Automated exposure control for dose reduction was used. DATE OF EXAM: 06/18/2023 11:33 AM COMPARISON: Multiple CT chest abdomen pelvis with most recent 02/22/2023 CLINICAL INDICATION:Female, 82 years old with history of C50.311; PHH, follow up breast ca Technique: Multiple axial images of the chest, abdomen, and pelvis were obtained following the intrav enous administration of 80 mL Isovue-300. Oral contrast was administered. Two-dimensional coronal and sagittal reconstructions were obtained. Findings: CHEST: LUNGS/ PLEURA: No focal consolidation, pneumothorax or pleural effusion. No new or enlarging pulmonar y nodules. Dependent bilateral lower lobes subsegmental atelectasis. AIRWAY: Patent and unremarkable. HEART: The heart is mildly enlarged for size there is severe coronary artery atherosclerosis. Mitral valve annular cusp calcifications. Aortic valve calcifications are present. Atrial septal occlusion d evice is present. No pericardial effusion. MEDIASTINUM: No evidence of adenopathy. VASCULATURE: No aortic aneurysm. Atherosclerosis of the arterial vasculature. MUSCULOSKELETAL: No acute osseous abnormalities. Chronic anterior wedging of the T7-T9 vertebral bodi es. SOFT TISSUES/LYMPH NODES: Unremarkable. LOWER NECK: No significant findings. ABDOMEN: ABDOMEN LIVER: Unremarkable GALLBLADDER AND BILE DUCTS: Gallbladder is surgically absent. PANCREAS: Unremarkable. SPLEEN: Unremarkable. ADRENAL GLANDS: Unremarkable. KIDNEYS AND URETERS: No evidence of hydronephrosis or renal calculus. Left renal cyst. The kidneys en jimmie symmetrically. PELVIS BLADDER: Redemonstration of somewhat asymmetric right bladder wall thickening which is decreased from prior examination measuring 5 mm, previously 8 mm. REPRODUCTIVE: Unremarkable. ABDOMEN & PELVIS STOMACH AND BOWEL: No focal bowel wall thickening or surrounding inflammatory changes. Enteric contra st reaches the distal colon. Diverticulum involving the second portion the duodenum. No evidence of b owel obstruction. PERITONEUM: No evidence of pneumoperitoneum or free fluid. VASCULATURE: Moderate atherosclerotic calcifications are present throughout the abdominal aorta and i ts branches. No abdominal aortic aneurysm. Multiple pelvic phleboliths. MUSCULOSKELETAL: No acute osseous abnormalities. Mild degenerative changes of the visualized spine. LYMPH NODES: No gross evidence for lymphadenopathy. SOFT TISSUE/ABDOMINAL WALL: Unremarkable IMPRESSION: 1. Decreased asymmetric right bladder wall thickening from prior examination. 2. No evidence for lymphadenopathy or finding to suggest metastatic disease.
== END | disposition home or self-care (01) ==
LOC: RADCTMAIN 09:30
PROVIDERS: ATTEND Internal Medicine Hematology & Oncology
DX: C50.311 Malignant neoplasm of lower-inner quadrant of right female breast (principal); C67.9 Malignant neoplasm of bladder, unspecified; C7A.1 Malignant poorly differentiated neuroendocrine tumors; K12.31 Oral mucositis (ulcerative) due to antineoplastic therapy; N32.89 Other specified disorders of bladder
CPT/HCPCS: 82565; 84520; 71260; 74177; 36415; Q9967

== ENCOUNTER → 2023-12-17 | Outpatient (CLI) | payer MEDICARE ==
[2023-12-17 10:17] LABS: African American GFR (CKD) 51 (>60 ml/min/1.73 sqM); Blood Urea Nitrogen 22 mg/dL (7-17); Non-African American GFR(CKD) 44 (>60 ml/min/1.73 sqM)
--- NOTE | 2023-12-17 12:09 | CT ---
EXAMINATION: CT CHEST, ABDOMEN AND PELVIS WITH IV CONTRAST DATE OF EXAMINATION: 12/17/2023. COMPARISON: 06/18/2023.. INDICATION: Follow-up for breast cancer. PROCEDURE: Axial CT of the chest, abdomen and pelvis was performed following the intravenous adminis tration of 80 ml Isovue 300. Coronal and sagittal reformats were performed. CT dose lowering techniq ues were used, to include: automated exposure control, adjustment for patient size, and/or use of ite rative reconstruction. FINDINGS: CHEST: CHEST WALL: There are bilateral mastectomies. Mediastinum and Lucila: There is no axillary, mediastinal or hilar lymphadenopathy. Pleural and Pericardial spaces: There are no pleural or pericardial effusions. Cardiovascular: There is significant vascular calcification throughout the thoracic aorta without emilee dence of aneurysmal dilation or dissection. Moderate to severe diffuse coronary artery calcifications are seen. There is heavy calcification of the mitral annulus. Pulmonary Artery: There are no central pulmonary arterial filling defects. Lung Parenchyma and Airways: Mild scattered interstitial changes to the lungs bilaterally likely atel ectasis or scarring. The lungs otherwise appear clear. No significant pulmonary nodules are seen. ABDOMEN: Liver and Biliary system: Normal. Adrenal glands: Normal. Kidneys and ureters: Unchanged left renal cyst. The kidneys otherwise appear unremarkable. Spleen: Normal. Pancreas: Normal. Gallbladder: Surgically absent. Lymph nodes, Peritoneum and mesentery: There is no mesenteric or retroperitoneal lymphadenopathy. Gastrointestinal tract: There are no dilated loops of bowel or free intraperitoneal air. . The appe ndix is normal. Aorta/IVC: There is severe vascular calcification throughout the abdominal aorta without evidence o f aneurysmal dilation or dissection.. IVC normal. Abdominal wall: Normal. PELVIS: Fluid: There is no free fluid in the pelvis. Lymph Nodes: There is no pelvic or inguinal lymphadenopathy.. Urinary bladder: Asymmetric right bladder wall thickening appears not significantly changed.. BONES: There are no osseous destructive lesions.. ADDITIONAL SIGNIFICANT FINDINGS: None. IMPRESSION: 1. No definitive evidence of metastatic disease within the chest, abdomen or pelvis. 2. Asymmetric white bladder wall thickening appears not significant change. 3. Additional incidental and chronic changes noted above.
== END | disposition home or self-care (01) ==
LOC: RADCTMAIN 09:27
PROVIDERS: ATTEND Internal Medicine Hematology & Oncology
DX: C50.311 Malignant neoplasm of lower-inner quadrant of right female breast (principal); C7A.1 Malignant poorly differentiated neuroendocrine tumors; C67.9 Malignant neoplasm of bladder, unspecified; K12.31 Oral mucositis (ulcerative) due to antineoplastic therapy; N32.89 Other specified disorders of bladder; Z71.3 Dietary counseling and surveillance; Z17.0 Estrogen receptor positive status [ER+]
CPT/HCPCS: 82565; 84520; 71260; 74177; 36415; Q9967

== ENCOUNTER → 2024-06-16 | Outpatient (CLI) | payer MEDICARE ==
[2024-06-16 09:58] LABS: African American GFR (CKD) 23 (>60 ml/min/1.73 sqM); Blood Urea Nitrogen 45 mg/dL (7-17); Non-African American GFR(CKD) 20 (>60 ml/min/1.73 sqM)
--- NOTE | 2024-06-16 11:36 | CT ---
EXAMINATION TYPE: CT ChestAbdPelvis wo con CT DLP: 548.70 mGycm, Automated exposure control for dose reduction was used. DATE OF EXAM: 06/16/2024 11:25 AM COMPARISON: 12/17/2023, 07/18/2023 CLINICAL INDICATION: Female, 83 years old with history of C50.311 BREAST CANCER; PHH, hx of breast an d bladder ca. Technique: CT ChestAbdPelvis wo con; Multiple axial images were obtained. Two-dimensional coronal and sagittal reconstructions were obtained. Contrast used: mL of , Oral contrast used: Findings: CHEST: LUNGS/ PLEURA: No focal consolidation, pneumothorax or pleural effusion. No new or enlarging pulmonar y nodules. Dependent bilateral lower lobes subsegmental atelectasis. AIRWAY: Patent and unremarkable. HEART: The heart is mildly enlarged for size there is severe coronary artery atherosclerosis. Mitral valve annular cusp calcifications. Aortic valve calcifications are present. Atrial septal occlusion d evice is present. No pericardial effusion. MEDIASTINUM: No evidence of adenopathy. VASCULATURE: No aortic aneurysm. Atherosclerosis of the arterial vasculature. MUSCULOSKELETAL: No acute osseous abnormalities. Chronic anterior wedging of the T7-T9 vertebral bodi es. SOFT TISSUES/LYMPH NODES the breasts are surgically absent. LOWER NECK: No significant findings. ABDOMEN: ABDOMEN LIVER: Unremarkable GALLBLADDER AND BILE DUCTS: Gallbladder is surgically absent. PANCREAS: Unremarkable. SPLEEN: Unremarkable. ADRENAL GLANDS: Unremarkable. KIDNEYS AND URETERS: No evidence of hydronephrosis or renal calculus. Left renal cyst. The kidneys en jimmie symmetrically. PELVIS BLADDER: Redemonstration of somewhat asymmetric right bladder wall thickening which is decreased from prior examination measuring 5 mm, previously 8 mm. REPRODUCTIVE: Unremarkable. ABDOMEN & PELVIS STOMACH AND BOWEL: No focal bowel wall thickening or surrounding inflammatory changes. Enteric contra st reaches the distal colon. Diverticulum involving the second portion the duodenum. No evidence of b owel obstruction. PERITONEUM: No evidence of pneumoperitoneum or free fluid. VASCULATURE: Moderate atherosclerotic calcifications are present throughout the abdominal aorta and i ts branches. No abdominal aortic aneurysm. Multiple pelvic phleboliths. MUSCULOSKELETAL: No acute osseous abnormalities. Mild degenerative changes of the visualized spine. LYMPH NODES: No gross evidence for lymphadenopathy. SOFT TISSUE/ABDOMINAL WALL: Unremarkable IMPRESSION: 1. Similar asymmetric right bladder wall thickening from prior examination. 2. No evidence for lymphadenopathy or finding to suggest metastatic disease.
== END | disposition home or self-care (01) ==
LOC: RADCTMAIN 09:21
PROVIDERS: ATTEND Internal Medicine Hematology & Oncology
DX: C50.311 Malignant neoplasm of lower-inner quadrant of right female breast (principal); C67.9 Malignant neoplasm of bladder, unspecified; C7A.1 Malignant poorly differentiated neuroendocrine tumors; K12.31 Oral mucositis (ulcerative) due to antineoplastic therapy; Z17.0 Estrogen receptor positive status [ER+]
CPT/HCPCS: 36415; 71250; 74176; 82565; 84520

== ENCOUNTER → 2024-07-01 | Outpatient (CLI) | payer MEDICARE ==
--- NOTE | 2024-07-04 19:17 | BD ---
EXAMINATION TYPE: Axial Bone Density DATE OF EXAM: 07/01/2024 CLINICAL HISTORY: 83 years old Female. ICD-10 CODE: C50.311 BREAST CANCER Height: 64 Weight: 151 FRAX RISK QUESTIONS: Family History (Parent hip fracture): no History of Fracture in Adulthood: no Secondary Osteoporosis: no RISK FACTORS HISTORY OF: Hip Surgery to Spine/Hip(right/left)/Wrist (right/left): no MEDICATIONS: Thyroid Medications: no Osteoporosis Medications: no EXAM MEASUREMENTS: Bone mineral densitometry was performed using the [employer] System. Bone mineral density as measured about the Lumbar spine is: ----- L1-L4(G/cm2): 1.122 T Score Values are as follows: ----- L1: -0.3 ----- L2: -1.4 ----- L3: -0.1 ----- L4: -0.4 ----- L1-L4: -0.5 Z Score Values are as follows: ----- L1: 1.5 ----- L2: 0.4 ----- L3: 1.7 ----- L4: 1.4 ----- L1-L4: 1.3 Bone mineral density baseline Bone mineral density about the R hip (g/cm2): 0.859 Bone mineral density about the L hip (g/cm2): 0.912 T Score values are as follows: -----R Neck: -1.5 -----L Neck: -1.6 -----R Total: -1.2 -----L Total: -0.8 Z Score values are as follows: -----R Neck: 0.8 -----L Neck: 0.7 -----R Total: 1.0 -----L Total: 1.4 Bone mineral density baseline FRAX%s: The graph provided illustrates a 14.4% chance for a major osteoporotic fx and a 4.0% chance f or the hips probability for fx in 10 years time. IMPRESSION: Osteopenia (T Score between -2.5 and -1). There is slightly increased risk of fracture and the patient may be considered for treatment. Re-Screen 2-5 years. NOTE: T-SCORE=SD OF THE YOUNG ADULT MEAN. [facility], , 07/04/2024 7:15 PM
== END | disposition home or self-care (01) ==
LOC: RADBDWWP 13:22
PROVIDERS: ATTEND Internal Medicine Hematology & Oncology
DX: C50.311 Malignant neoplasm of lower-inner quadrant of right female breast
CPT/HCPCS: 77080

== ENCOUNTER → 2024-10-14 | Outpatient (CLI) | payer MEDICARE ==
--- NOTE | 2024-10-14 14:07 | MR ---
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 Diffusion weighted imaging is performed. FINDINGS: No evidence for acute infarction, hemorrhage, mass, mass effect, midline shift, herniation, effacemen t of basal cisterns, or extra-axial fluid collection. The ventricles and sulci are age-appropriate. Dominant left vertebral artery. Persistent origin right [employer]. T2/FLAIR weighted sequences show moderate patchy and confluent bright white matter change throughout the subcortical, periventricular, and deep white matter regions of both cerebral hemispheres. Gradient sequence shows corresponding numerous foci of susceptibility artifact especially through the cerebral gyri. Midline structures demonstrate normal morphology. The craniocervical junction is normal. Post contrast images demonstrate no evidence of pathologic enhancement. Dural venous sinuses are pat ent. Moderate mucosal thickening ethmoid air cells. Globes are intact. IMPRESSION: 1. Slight progression in the moderate burden of chronic small vessel ischemic disease compared to 201 7. Given the corresponding scattered foci of susceptibility artifact, consider microbleeds relating t o amyloid angiopathy versus chronic hypertensive microangiopathy. 2. No acute intracranial abnormality or enhancing lesions are seen. [facility], , 10/14/2024 2:04 PM
== END | disposition home or self-care (01) ==
LOC: RADMRIMAIN 11:28
PROVIDERS: ATTEND Family Medicine
DX: G30.9 Alzheimer's disease, unspecified (principal); I67.82 Cerebral ischemia
CPT/HCPCS: 70553; A9585

== ENCOUNTER → 2024-12-10 | Outpatient (CLI) | payer MEDICARE ==
--- NOTE | 2024-12-10 12:38 | XR ---
EXAMINATION TYPE: XR chest 2V DATE OF EXAM: 12/10/2024 12:30 PM COMPARISON: Chest radiographs from 02/16/2021, CT chest abdomen and pelvis 06/16/2024. TECHNIQUE: XR chest 2V Frontal and lateral views of the chest. CLINICAL INDICATION:Female, 84 years old with history of R06.02 SHORTNESS OF BREATH; FINDINGS: Lungs/Pleura: There is no evidence of pleural effusion, focal consolidation, or pneumothorax. Right upper lung 3 mm nodular density. Pulmonary vascularity: Unremarkable. Heart/mediastinum: Cardiomediastinal silhouette is prominent in size. Atrial septal occlusion device. Atherosclerotic calcifications are seen in the aorta. Musculoskeletal: No acute osseous pathology. Other findings: Cholecystectomy clips in the right upper quadrant. IMPRESSION: 1. No acute cardiopulmonary disease/process. 2. Right upper lung remains clear nodular density. This can be further evaluated with CT as clinical ly indicated. [facility], , 12/10/2024 12:36 PM
--- NOTE | 2024-12-10 13:58 | NM ---
EXAMINATION TYPE: NM pul vent and perfuse DATE OF EXAM: 12/10/2024 CLINICAL INDICATION: Female, 84 years old with history of R06.02 SHORTNESS OF BREATH; COMPARISON: Chest radiograph 12/10/2024 TECHNIQUE: Utilizing inhalation of 39.0 mCi Tc 99m DTPA aerosol and intravenous injection of 5.26 mC i of Tc 99m MAA, ventilation and perfusion images are acquired post injection in multiple projections . FINDINGS: Normal radiotracer distribution is noted in the lungs. There is no evidence of mismatched defects. IMPRESSION: No perfusion defects to suggest pulmonary embolism. [facility], , 12/10/2024 1:56 PM
== END | disposition home or self-care (01) ==
LOC: RADNMMAIN 12:04
PROVIDERS: ATTEND Family Medicine
DX: J98.4 Other disorders of lung (principal); R06.02 Shortness of breath; R91.8 Other nonspecific abnormal finding of lung field
CPT/HCPCS: 71046; 78582; A9540; A9567

== ENCOUNTER → 2024-12-15 | Outpatient (CLI) | payer MEDICARE ==
[2024-12-15 11:49] LABS: African American GFR (CKD) 33 (>60 ml/min/1.73 sqM); Blood Urea Nitrogen 31 mg/dL (7-17); Non-African American GFR(CKD) 28 (>60 ml/min/1.73 sqM)
--- NOTE | 2024-12-15 13:40 | CT ---
EXAMINATION TYPE: CT ChestAbdPelvis wo con CT DLP: 1200 to mGycm, Automated exposure control for dose reduction was used. DATE OF EXAM: 12/15/2024 12:34 PM COMPARISON: Multiple CT chest abdomen pelvis with most recent 06/16/2024. 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 Oral contrast was administered. Two-dimensional coronal and sagittal rec onstructions were obtained. Findings: CHEST: LUNGS/ PLEURA: No pleural effusion, pneumothorax, focal consolidation. Bilateral lower lobe dependent subsegmental atelectasis. No suspicious pulmonary nodule or mass. AIRWAY: Patent and unremarkable.. HEART: Cardiomegaly is demonstrated.No pericardial effusion. Moderate coronary artery calcifications present. Dense mitral annulus calcifications. Postsurgical changes from atrial septal occlusion devic e. Small aortic valvular calcifications. MEDIASTINUM: No gross evidence of adenopathy. VASCULATURE: No aortic aneurysm. Atherosclerotic calcification of the arterial vasculature. Dilated main pulmonary artery measuring up to 3.7 cm and suggesting pulmonary atrial hypertension. MUSCULOSKELETAL: No acute osseous abnormalities. Chronic anterior wedging of the T7-T9 vertebral bodi es. Prominent Schmorl's node involving the inferior endplate of the T6 vertebral body. SOFT TISSUES/LYMPH NODES: Postsurgical changes from bilateral mastectomy. LOWER NECK: No significant findings. ABDOMEN: ABDOMEN LIVER: Unremarkable noncontrast appearance. GALLBLADDER AND BILE DUCTS: The gallbladder is surgically absent. No biliary duct dilatation. PANCREAS: Unremarkable noncontrast appearance. SPLEEN: Unremarkable noncontrast appearance. ADRENAL GLANDS: Unremarkable noncontrast appearance.. KIDNEYS AND URETERS: No evidence of hydronephrosis. Punctate nonobstructive right renal calculus. No left renal calculi.Stable left renal upper pole 2.4 cm cyst. PELVIS BLADDER: Redemonstration of somewhat asymmetric right bladder wall thickening measuring up to 6 mm, p reviously 5 mm. REPRODUCTIVE: Unremarkable noncontrast appearance. ABDOMEN & PELVIS STOMACH AND BOWEL: Periampullary duodenal diverticulum.No focal bowel wall thickening or surrounding inflammatory changes. Enteric contrast reaches the splenic flexure. No evidence of bowel obstruction. PERITONEUM: No evidence of pneumoperitoneum or free fluid. VASCULATURE: Moderate atherosclerotic calcifications are present throughout the abdominal aorta and i ts branches. No abdominal aortic aneurysm. Multiple pelvic phleboliths. MUSCULOSKELETAL: No acute osseous abnormalities. Mild multilevel degenerative changes of the visualiz ed spine. LYMPH NODES: No gross evidence for lymphadenopathy. SOFT TISSUE/ABDOMINAL WALL: Unremarkable IMPRESSION: 1. Similar asymmetric right bladder wall thickening from prior exam. 2. No evidence for lymphadenopathy or finding to suggest recurrent/metastatic disease. [facility], , 12/15/2024 1:29 PM
== END | disposition home or self-care (01) ==
LOC: RADCTMAIN 10:26
PROVIDERS: ATTEND Internal Medicine Hematology & Oncology
DX: C50.311 Malignant neoplasm of lower-inner quadrant of right female breast (principal); C7A.1 Malignant poorly differentiated neuroendocrine tumors; C67.9 Malignant neoplasm of bladder, unspecified; K12.31 Oral mucositis (ulcerative) due to antineoplastic therapy; N32.89 Other specified disorders of bladder; I70.0 Atherosclerosis of aorta; K57.10 Diverticulosis of small intestine without perforation or abscess without bleeding
CPT/HCPCS: 36415; 71250; 74176; 82565; 84520